=== PATIENT | female | born 1975 | race Caucasian/White ===

== ENCOUNTER → 2022-06-25 | Outpatient (CLI) | payer MEDICARE, MEDICAID, SELFPAY ==
--- NOTE | 2022-06-25 10:51 | AVDS_ITS ---
Reason For Study: AV-Fistula stenosis LEFT Inflow artery, 281/155.5 cm/sec. Inflow artery, 1538 ml/min. Proximal anastomosis, 336.5/180.2 cm/sec. Proximal anastomosis, 1791 ml/min. Origin of graft, 613.8/396.6 cm/sec. Origin of graft, 2586 ml/min. Proximal graft, 457.8/254.6 cm/sec. Proximal graft, 6650 ml/min. Mid graft, 90.7/35.9 cm/sec. Mid graft, 1444 ml/min. Distal graft, 202.6/102.3 cm/sec. Distal graft, 2739 ml/min. Outflow vein, 107.1/54.1 cm/sec. Outflow vein, 1465 ml/min. Radial artery, 51.2 cm/sec. Ulnar artery,36.4 cm/sec. VL/AV Fistula/Dialysis Graft Scan Interpretation Summary Patent left upper extremity brachio-cephalic fistula with no stenosis and adequ ate diameter/flow volumes. Vein progressively deeper beginning mid arm. Ordering Physician: Gregory Cooper Referring Physician: Maddy Anaya Performed By: Nita Goodwin RVT
== END | disposition home or self-care (01) ==
LOC: CVS 10:49
PROVIDERS: PCP Family Medicine; Referring Provider Surgery Trauma Surgery; Visit Provider Surgery Trauma Surgery
DX: T82.858A Stenosis of other vascular prosthetic devices, implants and grafts, initial encounter (principal)
CPT/HCPCS: 93990

== ENCOUNTER 2022-07-07 05:33 | Day surgery (SDC) | payer MEDICARE, MEDICAID, SELFPAY ==
[2022-07-06 11:19] LABS: Hematocrit 33.8 % (37-47); Hemoglobin 10.8 g/dL (12.0-15.0); Mean Corpuscular Hgb 29.4 pg (27.0-32.0); Mean Corpuscular Volume 92.1 fL (81-99); Mean Platelet Vol. 9.8 fl (6.2-12.0); Platelet Count 218 K/mm3 (150-450); RBC Distribution Width CV 17.7 % (11.6-14.6); RBC Distribution Width SD 59.1 fl (35.1-43.9); Red Blood Count 3.67 M/mm3 (4.2-5.4); White Blood Count 5.5 K/mm3 (4.4-11.0)
[2022-07-06 11:50] LABS: Hemoglobin A1c 8.3 % (3.8-5.6)
[2022-07-06 12:44] LABS: ALB/GLOB Ratio 0.8 RATIO (0.9-2.4); AST(SGOT) 14 U/L (15-37); Alanine Aminotransfer ALT/SGPT 28 U/L (13-56); Albumin, Serum 2.9 g/dL (3.2-5.0); Alkaline Phosphatase 92 U/L (45-117); Anion Gap 10 (5-15); BUN 77 mg/dL (7-18); BUN/Creat Ratio 13.3 RATIO (10-20); Calcium,Total 8.6 mg/dL (8.5-10.1); Chloride 100 mmol/L (98-107); Cholesterol 155 mg/dL (200); Creatinine, Serum 5.77 mg/dL (0.55-1.02); EST Glomerular Filtration Rate 8 mL/min (>60); Est Glom Filt Rate - Afr Amer 10 mL/min (>60); Estimated Creatinine Clearance 10.52 ml/min; Globulin 3.6 g/dL (2.2-4.2); Glucose 497 mg/dL (74-106); High Density Lipoprotein 76 mg/dL; Potassium 6.2 mmol/L (3.5-5.1); Protein, Total 6.5 g/dL (6.4-8.2); Sodium Level 134 mmol/L (136-145); Thyroid Stim Hormone (TSH) 2.77 uIU/mL (0.358-3.74); Triglycerides 164 mg/dL; Very Low Density Lipoprotein 33 mg/dL (5-40)
[2022-07-07] VITALS (11 sets, daily range): BP systolic 92–134; BP diastolic 50–96; PULSE 62–77; RESP 14–18; TEMP 36.1–37; O2SAT 94–100; BMI 47.2
--- NOTE | 2022-07-07 06:56 | SUR.PREOP ---
Pt refused urine preg. Anesthesia aware.
[2022-07-07 07:05] LABS: Bedside Glucose 98 mg/dL (74-106)
[2022-07-07 07:19] LABS: Potassium 4.7 mmol/L (3.5-5.1)
--- NOTE | 2022-07-07 07:44 | HP.PCM_ITS ---
History and Physical Visit Reasons:?fistula Chief Complaint: fistula left arm? (high pressure) Allergies bacitracin Allergy (Intermediate, Verified 06/23/22 11:13) blistershydrogen peroxide Allergy (Intermediate, Verified 06/23/22 11:13) blistersisopropyl alcohol Allergy (Intermediate, Verified 06/23/22 11:13) blistersSulfa (Sulfonamide Antibiotics) Allergy (Intermediate, Verified 06/23/22 11:13) Rashmetphormine Allergy (Intermediate, Uncoded 06/23/22 11:13) Rashlatex, tape Allergy (Mild, Uncoded 06/23/22 11:13) Rash Medications omega-3 fatty acids 1,000 mg capsule 1,000 mg PO DAILY 06/18/22 [History Confirmed 06/23/22] B-complex with vitamin C 1 tab PO DAILY 06/23/22 [History Confirmed 06/23/22] aspirin 81 mg tablet,delayed release 81 mg PO DAILY 06/23/22 [History Confirmed 06/23/22] atorvastatin 20 mg tablet 20 mg PO QHS 06/23/22 [History Confirmed 06/23/22] bumetanide 1 mg tablet 1 mg PO DAILY 06/23/22 [History Confirmed 06/23/22] cetirizine 10 mg tablet 10 mg PO DAILY PRN 06/23/22 [History Confirmed 06/23/22] cholecalciferol (vitamin D3) 125 mcg (5,000 unit) disintegrating tablet mcg PO .weekly 06/23/22 [History Confirmed 06/23/22] dicyclomine 10 mg capsule 10 mg PO BID 06/23/22 [History Confirmed 06/23/22] ferrous sulfate 325 mg (65 mg iron) tablet (FeroSul) 325 mg PO DAILY 06/23/22 [History Confirmed 06/23/22] insulin aspart U-100 100 unit/mL (3 mL) subcutaneous pen (Novolog Flexpen U-100 Insulin aspart) 1 sliding scale dose subcut USEASDIRECTD 06/23/22 [History Confi rmed 06/23/22] insulin detemir U-100 100 unit/mL (3 mL) subcutaneous pen (Levemir FlexTouch U- 100 Insulin) 17 unit subcut QHS 06/23/22 [History Confirmed 06/23/22] lamotrigine 50 mg disintegrating tablet 50 mg PO DAILY 06/23/22 [History Confirmed 06/23/22] losartan 50 mg tablet 50 mg PO DAILY 06/23/22 [History Confirmed 06/23/22] metoclopramide HCl 10 mg tablet 10 mg PO TID PRN 06/23/22 [History Confirmed 06/23/22] pantoprazole 40 mg tablet,delayed release 40 mg PO DAILY 06/23/22 [History Confirmed 06/23/22] rizatriptan 10 mg tablet See Rx Instructions PO .COMPLEX 06/23/22 [History Confirmed 06/23/22] sucralfate 100 mg/mL oral suspension 10 ml PO QACHS 06/23/22 [History Confirmed 06/23/22] tamsulosin 0.4 mg capsule 0.4 mg PO DAILY 06/23/22 [History Confirmed 06/23/22] PFSH Medical History? delivery delivered FH: cholecystectomy Left foot amputee (~2019) Surgical History? H/O left knee surgery H/O right knee surgery Hx of tonsillectomy Family History? Other Arthritis Asthma CVA (cerebral vascular accident) Diabetes Heart disease High cholesterol Hypertension Kidney disease Osteoporosis Seizures Social History? Smoking Status:? Former smoker alcohol intake:? never HPI HPI HPI: XOCHITL CHERRY, is a 47 F who presents to the office today for evaluation on non-functioning left arm fistula. Originally created in 12/2021 in [place]. Later had branches ligated. Only recently attempted access and are successful with arterial outflow but venous return is difficult to access and has high pressures. This is her first AV access. Currently uses right IJ catheter, MWF.? ROS General General: Yes weight change and fatigue; No appetite, colon cancer, breast cancer or weakness HEENT HEENT: Yes difficulty swallowing and swollen glands; No eye injury, eye surgery or hoarseness Endo Endocrine: Yes diabetes mellitus; No thyroid disease, thyroid cancer, Hair loss, heat intolerance or cold intolerance Skin Skin: No rash or changing moles Musc Musculoskeletal: Yes back problems and arthritis; No rheumatoid arthritis, gout or joint pain Cardio Cardiovascular: Yes high blood pressure; No murmur, pacemaker, heart disease, atrial fibrillation, heart attack, heart stent, palpitations, shortness of breat with exertion or chest pain Additional Details: CHF Psych Psychiatric: Yes depression and anxiety; No hearing voices Resp Respiratory: Yes shortness of breath, Yes sleep apnea, No cough, No COPD, Yes asthma, No emphysema and No wheezing Gastro Gastrointestinal: Yes abdominal pain, Yes nausea or vomiting, Yes diarrhea, Yes constipation, No blood in stool, Yes acid reflux, Yes hemorrhoids, Yes ulcers, No gallbladder problem and Yes black,tarry stools Pato Hematologic: No blood thinners, No blood disorders, No bleeding, No anemia and No blood clots Neuro Neurologic: No system reviewed and no additional complaints, except as documented, No as per HPI, No abnormal gait, No abnormal hearing, No abnormal movements, No abnormal speech, No behavioral changes, No burning sensations, No confusion, No convulsions, No disequilibrium, No dizziness, No localized weakness, No frequent falls, No headache(s), No lack of coordination, No loss of vision, No memory loss, No numbness, No other visual disturbances, No radicular pain, No restless legs, No sensory deficit, No syncope, No tingling, No tremor(s), No weakness and No other Exam Const General: cooperative, healthy appearing, comfortable, no acute distress and well developed Nutritional Appearance: well nourished Orientation: alert, awake and oriented x3 [facility] Head: normocephalic and atraumatic Ears: hearing grossly normal bilaterally Nose: external nose normal Eyes General: appearance normal, both eyes and all related structures EOM: EOM intact bilaterally Neck Neck: normal visual inspection, full ROM, no lymphadenopathy and trachea midline Thyroid: thyroid normal Lymphatic: no lymphadenopathy noted Resp Effort & Inspection: normal respiratory effort, able to speak in complete sentences, symmetric chest movement, no audible wheezes, not labored, no stridor and no use of accessory muscles Auscultation: clear to auscultation bilaterally Cardio Rate: regular rate Rhythm: regular rhythm Heart Sounds: no murmurs Bruits: no carotid bruits Pulses: brachial pulses present and radial pulses present Other: Left Arm brach-ceph AVF, thrill at antecubital crease diminishes mid upper arm Skin General: no rashes or lesions noted and no erythema Wounds: no wounds Neuro Cranial Nerves: CN's II-XI intact bilaterally and EOM intact bilaterally Speech: speech normal Gait: normal gait Motor: strength 5/5 throughout Sensory Exam: no sensory deficits noted Extremities Lower Extremity Edema: +2: Bilateral Psych Appearance: grossly normal and well kempt Mental Status: mental status grossly normal Mood: congruent mood Speech and Movement: speech and movement normal Thought Content: normal Judgment: judgment good Coding Level of Care Code Off vis,new,level 3 Diagnoses Arteriovenous fistula stenosis? T82.858A Assessment and Plan Assessment and Plan (1) Arteriovenous fistula stenosis: ?Status:?Acute ?Plan: -duplex revealed adequate size\flow volume, no focal stenosis, deep at mid/proximal arm -plan to elevate, will place graft if needed but expect [place] vein to be adequate
[2022-07-07] MEDS: Heparin Injection (Vial) 5,000 UNIT/ML VIAL 5000 UNIT (08:07)
--- NOTE | 2022-07-07 09:15 | DCINST_ITS ---
Discharge Instructions Diet Discharge Diet: Renal Diet Activity Return to work on:: 07/09/22 Weight Bearing Status: Weight bearing as tolerated Lifting Restrictions: No lifting > 20 lbs for 3 weeks with left arm Dressing / Incision Call your doctor if your incision/area has: Sudden Increased Bleeding, Increased Pain/ Swelling, Increased Redness and Foul Smelling Discharge Call your doctor if you observe: Fever of 101 or Higher Remove Dressing in: 2 days Additional Dressing/Incision Instructions:: Do not submerge incision for 3 weeks Follow Up Care Test Results: Test results from this visit will be discussed in further detail at your follow- up appointment, if applicable. Discharge Plan Admission Attending Provider: Gregory Cooper Primary Care Provider: Maddy Anaya Consulting Providers: Caroline Sousa Discharge Orders/Prescriptions Prescriptions: New oxycodone-acetaminophen [Percocet] 5-325 mg tablet 1 tab PO Q8H PRN (Reason: pain) 5 Days Qty: 14 0RF Continued aspirin 81 mg tablet,delayed release (DR/EC) 81 mg PO DAILY cetirizine 10 mg tablet 10 mg PO DAILY dicyclomine 10 mg capsule 10 mg PO BID pantoprazole 40 mg tablet,delayed release (DR/EC) 40 mg PO DAILY lamotrigine 50 mg tablet,disintegrating 50 mg PO DAILY atorvastatin 20 mg tablet 20 mg PO QHS sucralfate 100 mg/mL suspension 10 ml PO QACHS metoclopramide HCl 10 mg tablet 10 mg PO TID bumetanide 1 mg tablet 1 mg PO DAILY losartan 50 mg tablet 50 mg PO DAILY rizatriptan 10 mg tablet See Rx Instructions PO .COMPLEX Rx Instructions: take 1 tab at onset of headache; if no relief may repeat 1 tab after at least 2 hrs; max = 3 tabs/24 hr PO tamsulosin 0.4 mg capsule 0.4 mg PO DAILY insulin aspart U-100 [Novolog Flexpen U-100 Insulin] 100 unit/mL (3 mL) insulin pen 1 sliding scale dose subcut USEASDIRECTD Levemir FlexTouch U-100 Insuln 100 unit/mL (3 mL) insulin pen 17 unit subcut QHS Other Ambulatory Orders: ,Urine (Routine) Timeframe: [id number] Facility: [facility] - Location: Laboratory Ordered By: Dr. Gregory Bajwa Referrals / Follow Up: Maddy Anaya MD [Primary Care Provider] - Disposition Disposition (needs filled in before D/C Order can be placed): Home, Self Care
[2022-07-07] MEDS: Lidocaine 1% (30 ml sdv) 30 ML Vial (09:20)
[2022-07-07 10:36] LABS: Bedside Glucose 105 mg/dL (74-106)
[2022-07-07] MEDS: oxyCODONE 5 MG Tablet 2.5 MG PO (11:50)
--- NOTE | 2022-07-08 12:58 | PCM.OPRPT ---
Problems Associated Problem List Diagnoses (1) ESRD needing dialysis: Report of Operation Date of Procedure: 07/07/22 Pre-Operative Diagnosis: malfunctioning left brach-ceph fistula Post-Operative Diagnosis: same; satisfactory caliber, too deep Surgery/Procedure Performed:: transposition of cephalic vein fistula Surgeon: Gregory Cooper Type of Anesthesia: General Estimated Blood Loss (mL): 20 Description of Procedure: HPI: Patient is a 47-year-old female with previous left brachiocephalic AV fistula created in outside facility with difficult cannulation. The arterial access successful with difficulty with venous return due to potentially some high pressures. Previously in addition to the creation she also had multiple branches ligated at the outside facility. Fistula duplex revealed satisfactory size fistula with satisfactory flow volumes and expected low resistance flow not suggestive of any outflow obstruction or stenosis but was noted to be deeper than optimal from the mid arm cephalad. She is taken now for fistula transposition. Description of procedure: Upon obtaining informed consent and verification correct patient procedure site patient was taken the operating room where she was placed under general anesthesia. She was then positioned prepped and draped in usual sterile fashion a timeout was performed. Ultrasound used to anaid the cephalic vein fistula along its course as well as anaid where the trajectory took the fistula deeper marking the extent of mobilization necessary. Next longitude incision was made medial to the fistula in both electrocautery was dissect down through subcutaneous tissue. Self-retaining tractor was put in position and further dissection carried down to level of the fistula at which point sharp dissection was used dissect free along the length of the cephalic vein. Side branches were ligated with silk ties and divided and once a satisfactory length of fistula been mobilized was then transposed in the subcutaneous plane. The deeper fat plane and fascial plane was then closed with interrupted 2-0 Vicryl followed by 3-0 Vicryl deep to the fistula and then 4 Monocryl and Dermabond for the skin. The inclusion the case patient had a palpable thrill in the fistula and satisfactory Doppler signal. This point patient weakened from anesthesia taken the covering with dissipated discharge home.
== END 2022-07-07 16:44 | disposition home or self-care (01) ==
LOC: SDC 05:37 → AC 05:39
PROVIDERS: Anesthesiology; PCP Family Medicine; Referring Provider Surgery Trauma Surgery; Visit Provider Surgery Trauma Surgery
PROC: (CPT 36818; principal; 2022-07-07 07:15)
DX: T85.858A Stenosis due to other internal prosthetic devices, implants and grafts, initial encounter (principal); N18.6 End stage renal disease; E11.9 Type 2 diabetes mellitus without complications; Z87.891 Personal history of nicotine dependence; J45.909 Unspecified asthma, uncomplicated; E78.00 Pure hypercholesterolemia, unspecified; K21.9 Gastro-esophageal reflux disease without esophagitis
CPT/HCPCS: 36818; 01844; 36415; 80053; 80061; 82962; 83036; 84132; 84443; 85027; 86850; 86900; 86901; 87086; 87088; 87186; J7040; J2405

== ENCOUNTER 2022-08-18 17:06 | Inpatient (IN) | payer MEDICARE, MEDICAID, SELFPAY ==
[2022-08-18] VITALS (11 sets, daily range): BP systolic 161–230; BP diastolic 66–90; PULSE 69–79; RESP 14–18; TEMP 36.7–37; O2SAT 98–100; BMI 47.3; BMI 46.1
--- NOTE | 2022-08-18 17:34 | CT_ITS ---
STUDY: CT BRAIN WITHOUT CONTRAST REASON FOR EXAM: Female, 47 years old. Headache RADIATION DOSAGE (If Supplied By Facility): CTDIvol = ( 44.99 ) mGy, DLP = ( 812.98 ) mGycm TECHNIQUE: Transaxial CT imaging of the brain was performed without administration of intravenous contrast material. Individualized dose optimization techniques were used for this CT. COMPARISON: No relevant priors. FINDINGS: Normal soft tissue structures. Normal calvarium. Normal size ventricles and extra-axial spaces for the patient''s age. Normal white matter tracts of the cerebral hemispheres. Normal basal ganglia and thalami. Normal brainstem. Normal cerebellum. There is no intracranial hemorrhage. There are no findings of an acute ischemic infarction. Normal visualized paranasal sinuses. CT/Brain/Head without Contrast IMPRESSION: Normal unenhanced CT scan of the brain. Electronically Signed: Param Rollins MD at 18:23 EST ,
--- NOTE | 2022-08-18 17:36 | EDS_ITS ---
HPI History of Present Illness Chief Complaint: Headache Narrative Narrative: 47-year-old female past medical history of end-stage renal disease, chronic headaches, presents with headache that she has had for the last few days. She has taken multiple [id number] medications without relief of her symptoms. It is mainly on the right side. She states she is seeing flashing rainbows even when she closes her eyes. She denies paresthesias that are new for her stating that she has neuropathy and has chronic paresthesias, numbness and tingling. She describes a sharp pain on the right side of her head. She was recently diagnosed with hypertension and is taking medication. She denies any nausea or vomiting. She is a dialysis patient and does not make urine very often. She was able to complete her dialysis yesterday as she receives it Wednesday, Wednesday, and Wednesday every week. Her main concern is that she has this headache that is unrelenting over the last few days. [facility] Medical History Anxiety Asthma Fleming esophagus Blackout delivery delivered Chronic kidney disease Depression Dietary restriction FH: cholecystectomy Former smoker Gastric reflux High cholesterol History of CHF (congestive heart failure) History of Clostridium difficile infection History of edema History of ulceration Hypertension Insulin dependent diabetes mellitus Left foot amputee (~2019) Low iron Migraine headache On home oxygen therapy Seasonal allergies Sleep apnea Thyroid disease Uses wheelchair Vision impairment Walker as ambulation aid Wears glasses Home Medications aspirin 81 mg tablet,delayed release 81 mg PO DAILY 06/23/22 [History Last Taken Unknown] atorvastatin 20 mg tablet 20 mg PO QHS 06/23/22 [History Last Taken Unknown] bumetanide 1 mg tablet 1 mg PO DAILY 06/23/22 [History Last Taken Unknown] cetirizine 10 mg tablet 10 mg PO DAILY 06/23/22 [History Last Taken Unknown] dicyclomine 10 mg capsule 10 mg PO BID 06/23/22 [History Last Taken Unknown] insulin aspart U-100 100 unit/mL (3 mL) subcutaneous pen (Novolog Flexpen U-100 Insulin aspart) 6 - 10 unit subcut UD DIABETES 06/23/22 [History Last Taken 08/16/22] insulin detemir U-100 100 unit/mL (3 mL) subcutaneous pen (Levemir FlexTouch U- 100 Insulin) 17 unit subcut QHS DIABETES 06/23/22 [History Last Taken 08/17/22] lamotrigine 50 mg disintegrating tablet 50 mg PO DAILY 06/23/22 [History Last Taken Unknown] losartan 50 mg tablet 50 mg PO DAILY 06/23/22 [History Last Taken 07/07/22 04:00] metoclopramide HCl 10 mg tablet 10 mg PO TID 06/23/22 [History Last Taken Unknown] pantoprazole 40 mg tablet,delayed release 40 mg PO DAILY 06/23/22 [History Last Taken 07/07/22 04:00] rizatriptan 10 mg tablet See Rx Instructions PO .COMPLEX 06/23/22 [History Last Taken Unknown] sucralfate 100 mg/mL oral suspension 10 ml PO QACHS 06/23/22 [History Last Taken Unknown] tamsulosin 0.4 mg capsule 0.4 mg PO DAILY 06/23/22 [History Last Taken Unknown] oxycodone-acetaminophen 5 mg-325 mg tablet (Percocet) 1 tab PO Q8H PRN pain 5 days #14 tabs 07/07/22 [Rx Last Taken Unknown] ciprofloxacin HCl 500 mg tablet (Cipro) 500 mg PO BID 07/21/22 [History Last Taken Unknown] Allergy/AdvReac Type Severity Reaction Status Date / Time lidocaine Allergy Severe Rash Verified 08/18/22 17:09 bacitracin Allergy Intermediate blisters Verified 08/18/22 17:09 hydrogen peroxide Allergy Intermediate blisters Verified 08/18/22 17:09 isopropyl alcohol Allergy Intermediate blisters Verified 08/18/22 17:09 Sulfa (Sulfonamide Allergy Intermediate Rash Verified 08/18/22 17:09 Antibiotics) Bleach (Sodium Hypochlorite) Allergy Hives Verified 08/18/22 17:09 Latex, Natural Rubber Allergy Rash Verified 08/18/22 17:09 metformin AdvReac Vomiting Verified 08/18/22 17:09 neomycin AdvReac NEEDS Verified 08/18/22 17:09 [From Neosporin FOLLOW-UP ([id number])] polymyxin B AdvReac NEEDS Verified 08/18/22 17:09 [From Neosporin FOLLOW-UP ([id number])] Family History Other Arthritis Asthma CVA (cerebral vascular accident) Diabetes Heart disease High cholesterol Hypertension Kidney disease Osteoporosis Seizures Surgical History H/O left knee surgery H/O right knee surgery History of arteriovenostomy for renal dialysis History of bladder surgery History of History of cholecystectomy History of foot surgery History of liver biopsy History of lumpectomy of right breast History of shoulder surgery History of thoracentesis Hx of tonsillectomy Social History Smoking Status: Former smoker alcohol intake: never ROS ROS ED ROS Narrative Constitutional: No fever, no chills. HEENT: No sore throat. No neck pain. No loss of vision. No rhinorrhea. Cardiovascular: No chest pain. No palpitations. No pedal edema. Respiratory: No cough, no shortness of breath. Abdominal: No abdominal pain. No nausea. No vomiting. Genitourinary: No dysuria. No hematuria. Musculoskeletal: No myalgias. No arthralgias. Neurologic: Positive right-sided headaches. Seeing flashing rainbow colored lights. No dizziness. No lightheadedness. Skin: No rash. No change in color. Psychiatric: No depression. No anxiety. EXAM Physical Exam Narrative Exam Narrative: Afebrile. Vital signs noted. Elevated blood pressure. HEENT: Normocephalic. Atraumatic. PERRL, EOMI. Neck soft and supple. No point tenderness or step off. Cardiovascular: Regular rate and rhythm. No murmurs, rubs, or gallops appreciated. Respiratory: No tachypnea. Lungs clear to auscultation bilaterally. Gastrointestinal: Abdomen soft, nontender, with normoactive bowel sounds. No rebound or guarding. Neurological: Awake. Alert. Nonfocal, nonlateralizing. Skin: No rash. Normal color. No pallor. Musculoskeletal: No pedal edema. Full range of motion extremities. Braces bilateral lower extremities. Const Vital Signs: 08/18/22 17:09 08/18/22 19:28 08/18/22 20:45 Temperature 98.6 F Temperature Source Oral Pulse Rate 69 76 Respiratory Rate 14 Blood Pressure 182/87 H 220/90 H 221/90 H Blood Pressure Mean 118 133 133 Pulse Ox 100 Oxygen Delivery Method Room Air 08/18/22 21:54 08/18/22 22:07 Temperature 98.2 F Temperature Source Temporal Pulse Rate 79 Respiratory Rate 15 Blood Pressure 230/76 H Blood Pressure Mean 127 Pulse Ox 99 98 Oxygen Delivery Method Room Air Room Air MDM MDM MDM Narrative Medical decision making narrative: It was reported that she had elevated blood sugar but she denies any abdominal pain, nausea, or vomiting. I will obtain CBC and CMP along with acetone. She does not make urine that often. For her headache will obtain CT imaging as she will be administered hydralazine for her blood pressure along with Compazine and Benadryl for her migraine type headache that is right-sided. CBC shows normal white count of 6.1, hemoglobin 12.3, hematocrit 36.0, platelet count of 224. Sodium slightly low at 133 with normal potassium and normal chloride. BUN elevated 27, and creatinine elevated at 3.41 consistent with her end-stage renal disease and need for dialysis. Although her glucose is elevated at 424, she has a normal anion gap of 9 and negative acetone. Brain CT shows no evidence of hemorrhage or mass. She was given 10 mg of hydralazine initially with no change in her blood pressure. She was given an additional 20 mg with repeated systolic blood pressure above 200. Given her intractable headache, even after Decadron 10 mg intravenously, I discussed patient with Dr. Ortega. He would like the patient to be given labetalol 10 mg intravenously and a dose of her triptan medication that she usually takes at home. She was given the labetalol and sumatriptan hand 6 mg subcutaneously with no change in her headache. Her blood pressure still remains elevated above 200 systolic. She will be admitted to the PCU for better blood pressure control and her intractable headache. Disposition is admit. Patient is in stable condition currently. Lab Data Attestation: I reviewed the patient's lab results. Labs: Laboratory Results - last 24 hr 08/18/22 08/18/22 08/18/22 17:44 17:44 17:44 WBC 6.1 RBC 3.95 L Hgb 12.3 Hct 36.0 L MCV 91.1 MCH 31.1 MCHC 34.2 RDW Std Deviation 51.8 H RDW Coeff of Juan 15.4 H Plt Count 224 MPV 9.4 Immature Gran % (Auto) 0.700 Neut % (Auto) 60.6 Lymph % (Auto) 26.6 Rutherford % (Auto) 6.8 Eos % (Auto) 4.3 Baso % (Auto) 1.0 Absolute Neuts (auto) 3.7 Absolute Lymphs (auto) 1.61 Nucleated RBC % 0 Sodium 133 L Potassium 4.8 Chloride 102 Carbon Dioxide 22.0 Anion Gap 9 BUN 27 H Creatinine 3.41 H Estim Creat Clear Calc 20.05 Est GFR (MDRD) Af Amer 19 L Est GFR (MDRD) Non-Af 15 L BUN/Creatinine Ratio 7.9 L Glucose 424 H Calcium 8.8 Total Bilirubin 0.40 AST 22 ALT 27 Alkaline Phosphatase 94 Total Protein 6.4 Albumin 2.8 L Globulin 3.6 Albumin/Globulin Ratio 0.8 L Acetone Level NEGATIVE Radiography Diagnostic Testing: Clinical Impression(s) from Imaging Studies Brain CT 08/18/22 17:34 IMPRESSION: Normal unenhanced CT scan of the brain. Electronically Signed: Param Rollins MD at 18:23 EST , Discharge Plan Dx/Rx/DC Orders Clinical Impression: Severe uncontrolled hypertension, ESRD needing dialysis, Headache, Hyponatremia Disposition Disposition: Acute Care [facility]
[2022-08-18] MEDS: DiphenhydrAMINE 50 MG/ML Syringe 25 MG IV (17:48)
[2022-08-18] MEDS: proCHLORPERazine 10 MG/2 ML Vial IV (17:48)
[2022-08-18 17:52] LABS: Absolute Lymphocyte Count 1.61 X10^3/uL (0.83-4.51); Absolute Neutrophil Count 3.7 X10^3/uL (2.0-7.7); Basophil# 0.06 X10^3/uL; Eosinophil# 0.26 X10^3/uL; Eosinophils% 4.3 % (0-5); Hemoglobin 12.3 g/dL (12.0-15.0); Lymphocyte # 1.61 X10^3/ul (0.83-4.51); Lymphocyte % 26.6 % (19-41); Mean Corp Hgb Conc 34.2 g/dL (32-36); Mean Corpuscular Hgb 31.1 pg (27.0-32.0); Mean Corpuscular Volume 91.1 fL (81-99); Mean Platelet Vol. 9.4 fl (6.2-12.0); Monocyte# 0.41 X10^3/uL; Monocyte% 6.8 % (0-10); NRBC Flagged by Analyzer 0 % (0-5); Neutrophil # 3.67 X10^3/uL (2.7-7.7); Neutrophil % 60.6 % (47-70); Platelet Count 224 K/mm3 (150-450); RBC Distribution Width CV 15.4 % (11.6-14.6); RBC Distribution Width SD 51.8 fl (35.1-43.9); Red Blood Count 3.95 M/mm3 (4.2-5.4); White Blood Count 6.1 K/mm3 (4.4-11.0)
[2022-08-18] MEDS: hydrALAZINE 20 MG/ML Vial 10 MG IV (17:52)
[2022-08-18 18:08] LABS: ALB/GLOB Ratio 0.8 RATIO (0.9-2.4); AST(SGOT) 22 U/L (15-37); Alanine Aminotransfer ALT/SGPT 27 U/L (13-56); Albumin, Serum 2.8 g/dL (3.2-5.0); Alkaline Phosphatase 94 U/L (45-117); Anion Gap 9 (5-15); BUN 27 mg/dL (7-18); BUN/Creat Ratio 7.9 RATIO (10-20); Calcium,Total 8.8 mg/dL (8.5-10.1); Chloride 102 mmol/L (98-107); Creatinine, Serum 3.41 mg/dL (0.55-1.02); EST Glomerular Filtration Rate 15 mL/min (>60); Est Glom Filt Rate - Afr Amer 19 mL/min (>60); Estimated Creatinine Clearance 20.05 ml/min; Globulin 3.6 g/dL (2.2-4.2); Glucose 424 mg/dL (74-106); Potassium 4.8 mmol/L (3.5-5.1); Protein, Total 6.4 g/dL (6.4-8.2); Sodium Level 133 mmol/L (136-145)
[2022-08-18] MEDS: dexAMETHasone 10 MG/ML Vial IV (19:27)
[2022-08-18] MEDS: hydrALAZINE 20 MG/ML Vial IV (20:06)
[2022-08-18] MEDS: Labetalol (Prefilled) 20 MG/4 ML 10 MG IV (20:49)
[2022-08-18] MEDS: SUMAtriptan 6 MG/0.5 ML Vial SC (20:49)
--- NOTE | 2022-08-18 22:09 | HP.PCM.HOS_ITS ---
HPI - General General Date of Admission: 08/18/22 HPI Narrative XOCHITL CHERRY, is a 47 F who presents to the hospital secondary to headache. She says that her headache started on but is slowly gotten worse. She says that it got significantly worse Wednesday after dialysis and she presented today because she just cannot take it anymore it. She does have paresthesias which are chronic in her legs but she also has noticed some numbness in her hands but denies any weakness. This numbness is bilateral. She denies any blurry vision but she does see periodic flashes of light. In the ER she was noticed to have significantly elevated blood pressures at 1 point at 230 systol ic, she says that she is normally around 130 at home. She was started on a new blood pressure medication but she does not know what it is. She was given a couple doses of hydralazine and a dose of labetalol, it does appear that the labetalol has helped as her blood pressure while I was in the room did dip to 200. She denies any chest pain or shortness of breath. She is wearing oxygen which she says is normal for her at night when she goes to sleep. [facility] Medical History Anxiety Asthma Fleming esophagus Blackout delivery delivered Chronic kidney disease Depression Dietary restriction FH: cholecystectomy Former smoker Gastric reflux High cholesterol History of CHF (congestive heart failure) History of Clostridium difficile infection History of edema History of ulceration Hypertension Insulin dependent diabetes mellitus Left foot amputee (~2019) Low iron Migraine headache On home oxygen therapy Seasonal allergies Sleep apnea Thyroid disease Uses wheelchair Vision impairment Walker as ambulation aid Wears glasses Home Medications aspirin 81 mg tablet,delayed release 81 mg PO DAILY 06/23/22 [History Last Taken Unknown] atorvastatin 20 mg tablet 20 mg PO QHS 06/23/22 [History Last Taken Unknown] bumetanide 1 mg tablet 1 mg PO DAILY 06/23/22 [History Last Taken Unknown] cetirizine 10 mg tablet 10 mg PO DAILY 06/23/22 [History Last Taken Unknown] dicyclomine 10 mg capsule 10 mg PO BID 06/23/22 [History Last Taken Unknown] insulin aspart U-100 100 unit/mL (3 mL) subcutaneous pen (Novolog Flexpen U-100 Insulin aspart) 6 - 10 unit subcut UD DIABETES 06/23/22 [History Last Taken 08/16/22] insulin detemir U-100 100 unit/mL (3 mL) subcutaneous pen (Levemir FlexTouch U- 100 Insulin) 17 unit subcut QHS DIABETES 06/23/22 [History Last Taken 08/17/22] lamotrigine 50 mg disintegrating tablet 50 mg PO DAILY 06/23/22 [History Last Taken Unknown] losartan 50 mg tablet 50 mg PO DAILY 06/23/22 [History Last Taken 07/07/22 04 :00] metoclopramide HCl 10 mg tablet 10 mg PO TID 06/23/22 [History Last Taken Unknown] pantoprazole 40 mg tablet,delayed release 40 mg PO DAILY 06/23/22 [History Last Taken 07/07/22 04:00] rizatriptan 10 mg tablet See Rx Instructions PO .COMPLEX 06/23/22 [History Last Taken Unknown] sucralfate 100 mg/mL oral suspension 10 ml PO QACHS 06/23/22 [History Last Taken Unknown] tamsulosin 0.4 mg capsule 0.4 mg PO DAILY 06/23/22 [History Last Taken Unknown] oxycodone-acetaminophen 5 mg-325 mg tablet (Percocet) 1 tab PO Q8H PRN pain 5 days #14 tabs 07/07/22 [Rx Last Taken Unknown] ciprofloxacin HCl 500 mg tablet (Cipro) 500 mg PO BID 07/21/22 [History Last Taken Unknown] Allergy/AdvReac Type Severity Reaction Status Date / Time lidocaine Allergy Severe Rash Verified 08/18/22 17:09 bacitracin Allergy Intermediate blisters Verified 08/18/22 17:09 hydrogen peroxide Allergy Intermediate blisters Verified 08/18/22 17:09 isopropyl alcohol Allergy Intermediate blisters Verified 08/18/22 17:09 Sulfa (Sulfonamide Allergy Intermediate Rash Verified 08/18/22 17:09 Antibiotics) Bleach (Sodium Hypochlorite) Allergy Hives Verified 08/18/22 17:09 Latex, Natural Rubber Allergy Rash Verified 08/18/22 17:09 metformin AdvReac Vomiting Verified 08/18/22 17:09 neomycin AdvReac NEEDS Verified 08/18/22 17:09 [From Neosporin FOLLOW-UP ([id number])] polymyxin B AdvReac NEEDS Verified 08/18/22 17:09 [From Neosporin FOLLOW-UP ([id number])] Family History Other Arthritis Asthma CVA (cerebral vascular accident) Diabetes Heart disease High cholesterol Hypertension Kidney disease Osteoporosis Seizures Surgical History H/O left knee surgery H/O right knee surgery History of arteriovenostomy for renal dialysis History of bladder surgery History of History of cholecystectomy History of foot surgery History of liver biopsy History of lumpectomy of right breast History of shoulder surgery History of thoracentesis Hx of tonsillectomy Social History Smoking Status: Former smoker alcohol intake: never ROS Constitutional Constitutional: Denies chills, fatigue, fever(s) or malaise Eyes Eyes: Reports photophobia and seeing flashes; Denies blurry vision ENT HEENT: Denies headache(s) or nasal discharge Cardiovascular Cardiovascular: Denies chest pain, dyspnea on exertion or syncope Respiratory/Chest Respiratory/Chest: Denies cough, shortness of breath at rest or shortness of breath with exertion Gastrointestinal Gastrointestinal: Denies constipation, diarrhea, nausea or vomiting Genitourinary Genitourinary: Denies dysuria Neurologic Neurologic: Reports headache(s) and paresthesias RUE and LUE; Denies focal weakness, numbness or tremor(s) Psychiatric Psychiatric: Denies anxiety or depression Vital Signs Vital Signs Vital Signs: 08/18/22 17:09 08/18/22 19:28 08/18/22 20:45 Temperature 98.6 F Temperature Source Oral Pulse Rate 69 76 Respiratory Rate 14 Blood Pressure 182/87 H 220/90 H 221/90 H Blood Pressure Mean 118 133 133 Pulse Ox 100 Oxygen Delivery Method Room Air 08/18/22 21:54 08/18/22 22:07 Temperature 98.2 F Temperature Source Temporal Pulse Rate 79 Respiratory Rate 15 Blood Pressure 230/76 H Blood Pressure Mean 127 Pulse Ox 99 98 Oxygen Delivery Method Room Air Room Air Weight Weight: 302 lb 7.587 oz Body Mass Index (BMI) 47.3 Physical Exam Narrative General: Alert, Oriented x3, Cooperative, appears uncomfortable HEENT: Atraumatic, PERRLA, EOMI, Normocephalic Oral: Moist Mucosa Neck: Supple, No JVD Lungs: Clear to auscultation, Normal air movement, No rhonchi, No wheeze, No rales Cardiovascular: Regular rate, Regular Rhythm, Normal S1, Normal S2, No murmurs Abdomen: Soft, Non Tender, Non-Distended, No Hepato-splenomegaly Extremities: No edema, Capillary Refill Less than 3 Seconds Skin: No rashes, No breakdown Musculoskeletal: No Tenderness to Palpation of Joints or Extremities Neurological: Cranial nerves II-XII grossly intact, Motor Exam 5/5 strength throughout, Sensory exam intact to light touch and pain Psych/Mental Status: Flat affect, Appropriate Results Lab / Micro Data Result Diagrams: 08/18/22 17:44 08/18/22 17:44 Labs: Laboratory Results - last 24 hr 08/18/22 17:44: WBC 6.1, RBC 3.95 L, Hgb 12.3, Hct 36.0 L, MCV 91.1, MCH 31.1, MCHC 34.2, RDW Std Deviation 51.8 H, RDW Coeff of Juan 15.4 H, Plt Count 224, MPV 9.4, Immature Gran % (Auto) 0.700, Neut % (Auto) 60.6, Lymph % (Auto) 26.6, [place] % (Auto) 6.8, Eos % (Auto) 4.3, Baso % (Auto) 1.0, Absolute Neuts (auto) 3.7, Absolute Lymphs (auto) 1.61, Nucleated RBC % 0 08/18/22 17:44: Sodium 133 L, Potassium 4.8, Chloride 102, Carbon Dioxide 22.0, Anion Gap 9, BUN 27 H, Creatinine 3.41 H, Estim Creat Clear Calc 20.05, Est GFR (MDRD) Af Amer 19 L, Est GFR (MDRD) Non-Af 15 L, BUN/Creatinine Ratio 7.9 L, Glucose 424 H, Calcium 8.8, Total Bilirubin 0.40, AST 22, ALT 27, Alkaline Phosphatase 94, Total Protein 6.4, Albumin 2.8 L, Globulin 3.6, Albumin/Globulin Ratio 0.8 L 08/18/22 17:44: Acetone Level NEGATIVE Radiology Impression Brain CT 08/18/22 17:34 IMPRESSION: Normal unenhanced CT scan of the brain. Electronically Signed: Param Rollins MD at 18:23 EST , Assessment & Plan Assessment/Plan (1) Severe uncontrolled hypertension: (2) Headache: PLAN: Plan 1. Hypertensive urgency with headaches/history of migraines ? Blood pressure is significantly elevated and since her arrival to the ER she has continued to climb ? We will place her on twice daily Coreg 6.25 mg p.o. as well as daily Norvasc a t 10 mg p.o. ? We will place her on hydralazine 10 mg IV every 4 as needed for systolics greater than 180 ? Her renal function appears to be better and it does not appear that she is having any end-organ damage, if we cannot get her blood pressure under control with these medication adjustments will need to consider transferring to the ICU for nicardipine drip ? Can continue with her home Bumex as well as her home losartan ? Continue with Lamictal 2. End-stage renal disease likely from diabetes with neuropathy and gastroparesis ? We will consult nephrology for dialysis ? We will continue with long-acting insulin as well as her sliding scale insulin ? Accu-Cheks AC at bedtime ? We will make adjustments as necessary ? Continue with the Reglan 3. HLD ? Stable ? Continue with Lipitor 4. GERD ? Stable ? Continue with PPI DVT: Ambulation Charges/Coding Visit Charges Inpatient E&M: 80804 Init Hosp L3
[2022-08-18] MEDS: amLODIPine 10 MG Tablet PO (23:46)
[2022-08-18] MEDS: Carvedilol 6.25 MG Tablet PO (23:46)
[2022-08-18] MEDS: Sucralfate 1 GM Tablet PO (23:56)
[2022-08-18] MEDS: Insulin Glargine-YFGN 100 UNIT/ML Pen 17 UNIT SC (23:56)
[2022-08-19] VITALS (19 sets, daily range): BP systolic 93–160; BP diastolic 43–77; PULSE 59–82; RESP 14–18; TEMP 36.6–36.9; O2SAT 96–100
[2022-08-19] LABS: Bedside Glucose 406 mg/dL (74-106)
--- NOTE | 2022-08-19 00:13 | NURSING ---
Pt had the flu vaccine but does not know the date. Pt also has her wallet and at first wanted it locked up but now has changed hr mind. She wants her belonging to to be in bed with her
[2022-08-19 05:08] LABS: Absolute Neutrophil Count 5.9 X10^3/uL (2.0-7.7); Basophil# 0.03 X10^3/uL; Basophil% 0.5 % (0-1); Differential Indicated SCAN CRITERIA MET; Eosinophil# 0.01 X10^3/uL; Eosinophils% 0.2 % (0-5); Hematocrit 37.1 % (37-47); Hemoglobin 12.5 g/dL (12.0-15.0); Lymphocyte % 9.1 % (19-41); Mean Corp Hgb Conc 33.7 g/dL (32-36); Mean Corpuscular Hgb 30.7 pg (27.0-32.0); Mean Corpuscular Volume 91.2 fL (81-99); Monocyte# 0.07 X10^3/uL; Monocyte% 1.1 % (0-10); NRBC Flagged by Analyzer 0 % (0-5); Neutrophil # 5.86 X10^3/uL (2.7-7.7); Neutrophil % 88.5 % (47-70); POSITIVE DIFFERENTIAL YES; Platelet Count 255 K/mm3 (150-450); RBC Distribution Width CV 15.2 % (11.6-14.6); RBC Distribution Width SD 50.6 fl (35.1-43.9); Red Blood Count 4.07 M/mm3 (4.2-5.4); White Blood Count 6.6 K/mm3 (4.4-11.0)
[2022-08-19] MEDS: Rizatriptan Benzoate 10 MG Tablet PO ×2 (05:08→08:46)
--- NOTE | 2022-08-19 05:08 | NURSING ---
c/o coto. c/o seeing ring. bp 140s. Maxalt given
[2022-08-19 05:27] LABS: Anisocytosis 1+
[2022-08-19 05:43] LABS: Anion Gap 12 (5-15); BUN 33 mg/dL (7-18); Calcium,Total 8.8 mg/dL (8.5-10.1); Chloride 102 mmol/L (98-107); Creatinine, Serum 3.66 mg/dL (0.55-1.02); EST Glomerular Filtration Rate 14 mL/min (>60); Est Glom Filt Rate - Afr Amer 17 mL/min (>60); Estimated Creatinine Clearance 18.68 ml/min; Glucose 554 mg/dL (74-106); Potassium 5.4 mmol/L (3.5-5.1); Sodium Level 134 mmol/L (136-145)
[2022-08-19] MEDS: Sucralfate 1 GM Tablet PO ×4 (06:06→22:48)
[2022-08-19] MEDS: oxyCODONE 5 MG Tablet PO ×2 (06:21→14:34)
[2022-08-19 06:24] LABS: Mucous, Urine 0 SEEN /hpf (<or=2+)
[2022-08-19 06:25] LABS: Color, Urine Yellow (Yellow); Glucose, Dipstick 1000 mg/dl (Normal); Ketone-Dipstick 15 mg/dl (Negative); Leukocyte Esterase-Dipstick 500 /ul (Negative); Nitrite-Dipstick Negative (Negative); Occult Blood-Urine 50 /ul (Negative); Protein-Dipstick 500 mg/dl (Negative); Specific Gravity, Urine 1.015 (1.002-1.030); Urine Bilirubin Dipstick Negative (Negative); Urine Clarity Cloudy (Clear); Urine Urobilinogen Normal (Normal)
[2022-08-19 06:33] LABS: Bacteria 2+ /hpf (None Seen); Red Blood Cells-Urine 0-5 SEEN /hpf (0-5); White Blood Cells 5-10 SEEN /hpf (0-5); Yeast-Urine 4+ /hpf (None Seen)
[2022-08-19 06:34] LABS: Squamous Epithelial Cells - UA 10-25 SEEN /hpf (5-10)
--- NOTE | 2022-08-19 07:44 | PN.HOSP_ITS ---
Subjective Subjective Patient is a 47-year-old female with history of end-stage renal disease on dialysis presented with headaches and visual impairment found to have markedly elevated blood pressure admitted to monitored bed as a case of acute hypertensive urgency for subsequent management Objective Data Objective Data Vital Signs: Vital Signs Temp Pulse Resp BP Pulse Ox O2 Del Method O2 Flow Rate 98.1 F 82 18 149/72 H 100 Nasal Cannula 2 08/19/22 05:04 08/19/22 05:04 08/19/22 05:04 08/19/22 05:04 08/19/22 05:04 08/19/22 05:04 08/19/22 05:04 Oxygen Flow Rate (L/min) 2 Oxygen Delivery Method Nasal Cannula Weight: 133.7 kg Body Mass Index (BMI) 46.1 Intake & Output: Intake and Output for Last 24 Hours 08/17/22 08/18/22 08/19/22 23:59 23:59 23:59 Intake Total 240 / 240 Output Total 400 / 400 Balance -160 / -160 Lab / Micro Data Result Diagrams: 08/19/22 04:13 08/19/22 04:13 Labs: Laboratory Results - last 24 hr 08/18/22 17:44: WBC 6.1, RBC 3.95 L, Hgb 12.3, Hct 36.0 L, MCV 91.1, MCH 31.1, MCHC 34.2, RDW Std Deviation 51.8 H, RDW Coeff of Juan 15.4 H, Plt Count 224, MPV 9.4, Immature Gran % (Auto) 0.700, Neut % (Auto) 60.6, Lymph % (Auto) 26.6, [place] % (Auto) 6.8, Eos % (Auto) 4.3, Baso % (Auto) 1.0, Absolute Neuts (auto) 3.7, Absolute Lymphs (auto) 1.61, Nucleated RBC % 0 08/18/22 17:44: Sodium 133 L, Potassium 4.8, Chloride 102, Carbon Dioxide 22.0, Anion Gap 9, BUN 27 H, Creatinine 3.41 H, Estim Creat Clear Calc 20.05, Est GFR (MDRD) Af Amer 19 L, Est GFR (MDRD) Non-Af 15 L, BUN/Creatinine Ratio 7.9 L, Glucose 424 H, Calcium 8.8, Total Bilirubin 0.40, AST 22, ALT 27, Alkaline Phosphatase 94, Total Protein 6.4, Albumin 2.8 L, Globulin 3.6, Albumin/Globulin Ratio 0.8 L 08/18/22 17:44: Acetone Level NEGATIVE 08/18/22 23:43: POC Glucose 406 H 08/19/22 04:13: WBC 6.6, RBC 4.07 L, Hgb 12.5, Hct 37.1, MCV 91.2, MCH 30.7, MCHC 33.7, RDW Std Deviation 50.6 H, RDW Coeff of Juan 15.2 H, Plt Count 255, MPV 10.0, Immature Gran % (Auto) 0.600, Neut % (Auto) 88.5 H, Lymph % (Auto) 9.1 L, [place] % (Auto) 1.1, Eos % (Auto) 0.2, Baso % (Auto) 0.5, Absolute Neuts (auto) 5.9, Absolute Lymphs (auto) 0.60 L, Nucleated RBC % 0, Anisocytosis 1+ 08/19/22 04:13: Sodium 134 L, Potassium 5.4 H, Chloride 102, Carbon Dioxide 20.0 L, Anion Gap 12, BUN 33 H, Creatinine 3.66 H, Estim Creat Clear Calc 18.68, Est GFR (MDRD) Af Amer 17 L, Est GFR (MDRD) Non-Af 14 L, BUN/Creatinine Ratio 9.0 L, Glucose 554 H*, Calcium 8.8 08/19/22 06:15: Urine Color Yellow, Urine Clarity Cloudy, Urine pH 6.0, Ur Specific [place] 1.015, Urine Protein 500 H, Urine Glucose (UA) 1000 H, Urine Ketones 15 H, Urine Occult Blood 50 H, Urine Nitrite Negative, Urine Bilirubin Negative, Urine Urobilinogen Normal, Ur Leukocyte Esterase 500 H, Urine RBC 0-5 SEEN, Urine WBC 5-10 SEEN, Ur Squamous Epith Cells 10-25 SEEN, Urine Bacteria 2+, Urine Mucus 0 SEEN, Urine Yeast 4+ Radiography Diagnostic Testing: Radiology Impression Brain CT 08/18/22 17:34 IMPRESSION: Normal unenhanced CT scan of the brain. Electronically Signed: Param Rollins MD at 18:23 EST , Physical Exam Narrative GENERAL: Patient appears to be in some discomfort HEENT: Atraumatic; normocephalic EYES; Anicteric, Normal Conjunctiva NECK; supple, normal thyroid, RESPIRATORY: Diminished to auscultation CARDIOVASCULAR: Regular S1 S2, GI: soft, normoactive bowel sounds, : No Renal angle tenderness; EXTREMITIES: No edema, no clubbing, MUSCULOSKELETAL: no muscle wasting NEURO: Awake; no lateralizing signs. SKIN: No Rash PSYCH; Flat affect Assessment & Plan Assessment/Plan (1) Severe uncontrolled hypertension: (2) Headache: PLAN: Plan Patient is a 47-year-old female with history of end-stage renal disease on dialysis presented with headaches and visual impairment found to have markedly elevated blood pressure admitted to monitored bed as a case of acute hypertensive urgency for subsequent management 1. Acute hypertensive urgency ? Patient admitted to a monitored bed Home medications resumed. Hydralazine IV added as needed for systolic blood pressure greater than 160 2. Acute migrainous attack ? Patient being treated symptomatically 3. End-stage renal disease ? Dialysis days Wednesdays and Fridays consult placed to nephrology for dialysis orders 4. 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 Patient blood glucose markedly elevated. Patient and apparently declined Humalog stating she was allergic to Humalog plan is for patient to be switched to NovoLog which she uses. Adjusted her long-acting insulin in view of glucose being markedly elevated 5. Dyslipidemia -Patient is on statin therapy, continued at home dose 6. GERD ? On PPI 7. Gastroparesis ? Secondary to diabetes mellitus type 2 patient is on metoclopramide did continue 8. DVT prophylaxis ? Deemed to be low risk encourage early ambulation Charges/Coding Visit Charges Inpatient E&M: 75276 Subs Hosp L2
[2022-08-19] MEDS: Bumetanide 0.5 MG Tablet 1 MG PO (08:44)
[2022-08-19] MEDS: Loratadine 10 MG Tablet PO (08:44)
[2022-08-19] MEDS: Metoclopramide 5 MG TABLET PO ×2 (08:44→22:48)
[2022-08-19] MEDS: Dicyclomine 10 MG Capsule PO ×2 (08:44→22:48)
[2022-08-19] MEDS: lamoTRIgine 25 MG Tablet 50 MG PO (08:44)
[2022-08-19] MEDS: amLODIPine 10 MG Tablet PO (08:44)
[2022-08-19] MEDS: Pantoprazole Sodium 40 MG Tablet PO (08:44)
[2022-08-19] MEDS: Tamsulosin HCl 0.4 MG Capsule PO (08:45)
[2022-08-19] MEDS: Aspirin E.C. 81 MG Tablet PO (08:45)
[2022-08-19] MEDS: Carvedilol 6.25 MG Tablet PO ×2 (08:45→17:50)
[2022-08-19] MEDS: Losartan Potassium 50 MG Tablet PO (08:45)
--- NOTE | 2022-08-19 09:14 | CON.PCM.RE_ITS ---
Assessment & Plan Assessment/Plan (1) ESRD needing dialysis: PLAN: The patient usually dialyzes on a MWF schedule at [facility]. I will arrange for dialysis on her usual schedule today. We will keep the patient on MWF dialysis schedule while she is admitted to the hospital. (2) Severe uncontrolled hypertension: PLAN: BP is better controlled today. Suspect headache was actually exacerbating BP rather than the other way around. She is on losartan, carvedilol, and amlodipine. The patient also takes bumetanide. Further volume removal with dialysis today should help control BP as well. (3) Hyperkalemia: PLAN: Potassium level is slightly high at 5.4 mmol/L today. Much of this is likely due to severe hyperglycemia with blood sugar of 554 mg/dL this morning. We will dialyze the patient using 2K dialysate. Treatment of hyperglycemia as per hospital medicine service. (4) Type 2 diabetes mellitus: PLAN: Glycemic control as per hospital medicine service. (5) Headache: PLAN: The patient continues to complain of headache despite improvement of her blood pressure. Patient has a history of migraine headache, but prior headache has never been this severe. Suspect hypertension on presentation is due to pain/headache rather than the other way around. Further work-up of headache and treatment as per hospital medicine service. PLAN: Plan Nephrology plan discussed with Dr. Barcenas. HPI Consult Data Date of Consult: 08/19/22 HPI Narrative Reason for Consultation: ESRD HPI Narrative: The patient has a 47-year-old woman with past history of ESRD, type 2 diabetes mellitus, hypertension, ARIAN, PAD status post left partial foot amputation, and hyperlipidemia. The patient presented to the hospital on 08/18/2022 with complaint of headache which started 4 days prior to presentation. The patient also reports paresthesia involving her hands without weakness. The patient has chronic lower extremity paresthesia, but upper extremity symptoms are new. On evaluation in ED, the patient was found to be severely hypertensive. Her systolic blood pressure was as high as 230 mmHg. Nephrology is asked to see the patient for dialysis management in ESRD patient. The patient usually dialyzes at [facility] [place] on MWF schedule. She is followed there by my partner, Dr. Staples. The patient continues to complain of headache and photophobia. She reports seeing flashes of light and rainbow. She denies chest pain, shortness of breath, nausea, or vomiting. The patient reports that she has been taking her medication as prescribed. She has chronic lower extremity edema which has not increased in severity. [facility] Medical History Anxiety Asthma Fleming esophagus Blackout delivery delivered Chronic kidney disease Depression Dietary restriction FH: cholecystectomy Former smoker Gastric reflux High cholesterol History of CHF (congestive heart failure) History of Clostridium difficile infection History of edema History of ulceration Hypertension Insulin dependent diabetes mellitus Left foot amputee (~2019) Low iron Migraine headache On home oxygen therapy Seasonal allergies Sleep apnea Thyroid disease Uses wheelchair Vision impairment Walker as ambulation aid Wears glasses Home Medications aspirin 81 mg tablet,delayed release 81 mg PO DAILY 06/23/22 [History Last Taken Unknown] atorvastatin 20 mg tablet 20 mg PO QHS 06/23/22 [History Last Taken Unknown] bumetanide 1 mg tablet 1 mg PO DAILY 06/23/22 [History Last Taken Unknown] cetirizine 10 mg tablet 10 mg PO DAILY 06/23/22 [History Last Taken Unknown] dicyclomine 10 mg capsule 10 mg PO BID 06/23/22 [History Last Taken Unknown] insulin aspart U-100 100 unit/mL (3 mL) subcutaneous pen (Novolog Flexpen U-100 Insulin aspart) 6 - 10 unit subcut TID DIABETES 06/23/22 [History Last Taken 08/16/22] insulin detemir U-100 100 unit/mL (3 mL) subcutaneous pen (Levemir FlexTouch U- 100 Insulin) 17 unit subcut QHS DIABETES 06/23/22 [History Last Taken 08/17/22] lamotrigine 50 mg disintegrating tablet 50 mg PO DAILY 06/23/22 [History Last Taken Unknown] losartan 50 mg tablet 50 mg PO DAILY 06/23/22 [History Last Taken 07/07/22 04:00] metoclopramide HCl 10 mg tablet 10 mg PO TID 06/23/22 [History Last Taken Unknown] pantoprazole 40 mg tablet,delayed release 40 mg PO DAILY 06/23/22 [History Last Taken 07/07/22 04:00] rizatriptan 10 mg tablet See Rx Instructions PO .COMPLEX 06/23/22 [History Last Taken Unknown] sucralfate 100 mg/mL oral suspension 10 ml PO QACHS 06/23/22 [History Last Taken Unknown] tamsulosin 0.4 mg capsule 0.4 mg PO DAILY 06/23/22 [History Last Taken Unknown] oxycodone-acetaminophen 5 mg-325 mg tablet (Percocet) 1 tab PO Q8H PRN pain 5 days #14 tabs 07/07/22 [Rx Last Taken Unknown] ciprofloxacin HCl 500 mg tablet (Cipro) 500 mg PO BID 07/21/22 [History Last Taken Unknown] sucroferric oxyhydroxide 500 mg chewable tablet (Velphoro) 500 mg PO TIDCM kidney 08/19/22 [History Last Taken Unknown] Allergy/AdvReac Type Severity Reaction Status Date / Time lidocaine Allergy Severe Rash Verified 08/18/22 17:09 bacitracin Allergy Intermediate blisters Verified 08/18/22 17:09 hydrogen peroxide Allergy Intermediate blisters Verified 08/18/22 17:09 isopropyl alcohol Allergy Intermediate blisters Verified 08/18/22 17:09 Sulfa (Sulfonamide Allergy Intermediate Rash Verified 08/18/22 17:09 Antibiotics) Bleach (Sodium Hypochlorite) Allergy Hives Verified 08/18/22 17:09 insulin lispro Allergy Other Verified 08/19/22 05:46 [From Humalog U-100 Insulin] Latex, Natural Rubber Allergy Rash Verified 08/18/22 17:09 metformin AdvReac Vomiting Verified 08/18/22 17:09 neomycin AdvReac NEEDS Verified 08/18/22 17:09 [From Neosporin FOLLOW-UP ([id number])] polymyxin B AdvReac NEEDS Verified 08/18/22 17:09 [From Neosporin FOLLOW-UP ([id number])] Family History Other Arthritis Asthma CVA (cerebral vascular accident) Diabetes Heart disease High cholesterol Hypertension Kidney disease Osteoporosis Seizures Surgical History H/O left knee surgery H/O right knee surgery History of arteriovenostomy for renal dialysis History of bladder surgery History of History of cholecystectomy History of foot surgery History of liver biopsy History of lumpectomy of right breast History of shoulder surgery History of thoracentesis Hx of tonsillectomy Social History Smoking Status: Former smoker alcohol intake: never ROS ROS Narrative 07/13 ROS was done and is otherwise noncontributory to what is already document ed in the HPI. Physical Exam Narrative General: Alert and oriented x3, ill-appearing. HEENT: Normocephalic, atraumatic, mucous membrane moist without erythema. PERRLA, EOMI. Hearing is intact. Neck: Supple, no JVD. Heart: Normal S1, S2. No rubs, murmurs, or gallop. Lungs: Clear to auscultation bilaterally. Abdomen: Normal bowel sound, no bruit, soft, nontender, no guarding or rebound. Extremities: No clubbing, cyanosis, or edema. Musculoskeletal: Full passive range of motion. No joint swelling or tenderness. Skin: Warm and dry, no rash. Psychiatric: Normal mood and affect. Neurologic: No focal neurologic deficits. Lab / Micro Data Result Diagrams: 08/19/22 04:13 08/19/22 04:13 Labs: Laboratory Results - last 24 hr 08/18/22 17:44: WBC 6.1, RBC 3.95 L, Hgb 12.3, Hct 36.0 L, MCV 91.1, MCH 31.1, MCHC 34.2, RDW Std Deviation 51.8 H, RDW Coeff of Juan 15.4 H, Plt Count 224, MPV 9.4, Immature Gran % (Auto) 0.700, Neut % (Auto) 60.6, Lymph % (Auto) 26.6, [place] % (Auto) 6.8, Eos % (Auto) 4.3, Baso % (Auto) 1.0, Absolute Neuts (auto) 3.7, Absolute Lymphs (auto) 1.61, Nucleated RBC % 0 08/18/22 17:44: Sodium 133 L, Potassium 4.8, Chloride 102, Carbon Dioxide 22.0, Anion Gap 9, BUN 27 H, Creatinine 3.41 H, Estim Creat Clear Calc 20.05, Est GFR (MDRD) Af Amer 19 L, Est GFR (MDRD) Non-Af 15 L, BUN/Creatinine Ratio 7.9 L, Glucose 424 H, Calcium 8.8, Total Bilirubin 0.40, AST 22, ALT 27, Alkaline Phosphatase 94, Total Protein 6.4, Albumin 2.8 L, Globulin 3.6, Albumin/Globulin Ratio 0.8 L 08/18/22 17:44: Acetone Level NEGATIVE 08/18/22 23:43: POC Glucose 406 H 08/19/22 04:13: WBC 6.6, RBC 4.07 L, Hgb 12.5, Hct 37.1, MCV 91.2, MCH 30.7, MCHC 33.7, RDW Std Deviation 50.6 H, RDW Coeff of Juan 15.2 H, Plt Count 255, MPV 10.0, Immature Gran % (Auto) 0.600, Neut % (Auto) 88.5 H, Lymph % (Auto) 9.1 L, [place] % (Auto) 1.1, Eos % (Auto) 0.2, Baso % (Auto) 0.5, Absolute Neuts (auto) 5.9, Absolute Lymphs (auto) 0.60 L, Nucleated RBC % 0, Anisocytosis 1+ 08/19/22 04:13: Sodium 134 L, Potassium 5.4 H, Chloride 102, Carbon Dioxide 20.0 L, Anion Gap 12, BUN 33 H, Creatinine 3.66 H, Estim Creat Clear Calc 18.68, Est GFR (MDRD) Af Amer 17 L, Est GFR (MDRD) Non-Af 14 L, BUN/Creatinine Ratio 9.0 L, Glucose 554 H*, Calcium 8.8 08/19/22 06:15: Urine Color Yellow, Urine Clarity Cloudy, Urine pH 6.0, Ur Specific [place] 1.015, Urine Protein 500 H, Urine Glucose (UA) 1000 H, Urine Ketones 15 H, Urine Occult Blood 50 H, Urine Nitrite Negative, Urine Bilirubin Negative, Urine Urobilinogen Normal, Ur Leukocyte Esterase 500 H, Urine RBC 0-5 SEEN, Urine WBC 5-10 SEEN, Ur Squamous Epith Cells 10-25 SEEN, Urine Bacteria 2+, Urine Mucus 0 SEEN, Urine Yeast 4+ Radiology Impression Brain CT 08/18/22 17:34 IMPRESSION: Normal unenhanced CT scan of the brain. Electronically Signed: Param Rollins MD at 18:23 EST ,
--- NOTE | 2022-08-19 09:27 | WOUNDNOTE ---
wound photo: left lateral foot
--- NOTE | 2022-08-19 09:29 | WOUNDNOTE ---
wound photo: left great toe
[2022-08-19] MEDS: Insulin Glargine-YFGN 100 UNIT/ML Pen 25 UNIT SC ×2 (10:24→22:47)
[2022-08-19] MEDS: Ketorolac 15 MG/ML Vial IV (10:32)
[2022-08-19] MEDS: proMETHazine 25 MG/ML Syringe 12.5 MG IM (10:32)
[2022-08-19 10:45] LABS: Bedside Glucose > 500 mg/dL (74-106)
--- NOTE | 2022-08-19 12:20 | CASEMGMT ---
BEATRICE ESCALANTE AUTOMOTIVE SERVICE DIRECTOR CM to room to meet with patient for initial transition planning/care coordination assessment. BEATRICE ESCALANTE introduced self and role at [facility]. Pt voices understanding and consents to assessment at this time. Pt resting in bed in no distress at this time. She states she does have a headache still. Lights kept dimmed in room for pt comfort. Pt is A/O at this time and answers all questions appropriately. Care providers, pharmacy, and demographics verified/updated at this time. PCP: Dr Anaya Specialists: Dr Staples-nephrology. [facility]. Chair time @ 11:05 AM, Dr Cooper-vascular surgeon Pt had 1st appt scheduled w/Lindsay Hardy NP, for Dr Brady, but states she missed the appt d/t she thought it was on a Wednesday, but it was scheduled for Wednesday. She has not rescheduled the f/u appt yet, but plans to do so. BEATRICE ESCALANTE recommended she call as soon as possible, as appt slots fill up quickly. She voices understanding. Preferred Pharmacy: [facility]. Insurance: [facility] A/B Prescription Benefit: Yes-[employer] Living Will/HPOA: Pt does not currently have LW/HCPOA in Security Scorecard LNOK: Cousin-Laura Lujan is 1st contact. DaughterLiliane is listed as 2nd contact. Living Arrangements: Lives w/her cousin, Laura Mckeon, Laura Mckeon's sig other, Laura Ag's 3 sons: ages 16, 15, and 12, Ancelmo's mother, and Ancelmo's father, who stays in the furnished basement. Ancelmo's nephew lives on the property in a trailer. Pt states there are 4 steps total to enter the home and 2 people have to assist her to get up the stairs. She stays in the living room and uses a BSC in the living room and states she has no privacy to even use the BSC. She states she is trying to find her own place, but that it has been difficult to find something w/no stairs. She states she is trying to get on JO[place]. MACHINE GREASER BORIS, Cristian, made aware and states she will notify SW. Pt states she manages her own medications and appts. Her cousin/family takes her to the grocery store once a month. She is able to prepare most of her meals, but the boys assist w/some meals as well. The family manages home tasks. Transportation: Cousin/Laura Mckeon DME: has the following DME: BSC, leg brace, crutches, hospital bed, walker, W/C, power W/C, nebulizer, transfer board, O2 @ 2l/m @ HS from [facility]. She states he has concentrator and portable O2 tanks. She does not have a pulse ox. She denies using BIPAP or CPAP. Insulin/Diabetic supplies: Pt states she uses a Gissell system but is out of the Gissell buttons to read her BS's. She does not have a glucometer and would like a script for one. She states she will pick it up if it is affordable. She reports having enough insulin, but states she is out of her diabetic pills. She states the [facility] agreed to cover the expenses for her medications for 2 months and they sent funding to [facility] pharmacy. She states her PCP was supposed to send rx's to [facility] but they only sent 4 pills. She states she has contacted the PCP for further rx's but she had not heard back from anyone yet. While BEATRICE ESCALANTE in room talking w/pt, she received a call from Dr Anaya and answered it. There was no one on the other end. She plans to f/u with their office. MACHINE GREASER Cristian ESCALANTE, made aware. She states would like to get a shower chair, but states she would need a bariatric one. She was made aware [facility] does not cover for cost of shower chair and made aware of several locations one could be purchased from. She voices understanding. Pt states no need for further DME at this time. HHC/SNF: [place] of going [place] and [place]. She states she is currently active w/[facility] for therapy, nursing, and an aide for bathing. She states is in the process of switching to [facility] so she can have long-term HHC. She states she has contacted her PCP for a referral to be sent. She prefers to return home @ d/c w/ASH w/[facility] unless [facility] able to accept her for long-term services. MACHINE GREASERDustin BARRON CMGenet, made aware. Offered list of other [facility] agencies for other choices, but she declines. Pt wishes to return home and states has no further concerns with going home at time of discharge. Pt states does not smoke or drink ETOH. CM to follow for further discharge planning/needs. Pt voices no further concerns/needs at this time. Advised pt to ask for CM if any further questions/concerns/needs arise. Voices understanding. PLAN: Home w/HHC. Pt would like script for glucometer. SW referral for resources/housing information Bentley GUAJARDON RN CM
[2022-08-19 12:21] LABS: Bedside Glucose 443 mg/dL (74-106)
--- NOTE | 2022-08-19 17:44 | DIALYSIS ---
Hemodialysis tx completed x4.25 hours. Hypotension at times during tx due to all BP meds being given this morning. Fluid removal limited to 2800ml due to hypotension despite crit-line being a-profile throughout tx. Verbal report given to BEATRICE Guerra post tx
[2022-08-19 17:45] LABS: Bedside Glucose 187 mg/dL (74-106)
[2022-08-19] MEDS: Ceftriaxone 1 GM/50 ML BAG IV (21:05)
[2022-08-19] MEDS: Atorvastatin Calcium 20 MG Tablet PO (22:48)
[2022-08-19 23:21] LABS: Bedside Glucose 433 mg/dL (74-106)
[2022-08-20] VITALS (13 sets, daily range): BP systolic 85–119; BP diastolic 39–56; PULSE 60–70; RESP 16; TEMP 36.3–36.8; O2SAT 96–100
[2022-08-20] MEDS: Rizatriptan Benzoate 10 MG Tablet PO (00:53)
[2022-08-20 05:23] LABS: Absolute Lymphocyte Count 2.52 X10^3/uL (0.83-4.51); Absolute Neutrophil Count 3.4 X10^3/uL (2.0-7.7); Basophil# 0.05 X10^3/uL; Basophil% 0.8 % (0-1); Eosinophil# 0.22 X10^3/uL; Eosinophils% 3.3 % (0-5); Hematocrit 33.2 % (37-47); Hemoglobin 11.2 g/dL (12.0-15.0); Lymphocyte # 2.52 X10^3/ul (0.83-4.51); Lymphocyte % 38.2 % (19-41); Mean Corp Hgb Conc 33.7 g/dL (32-36); Mean Corpuscular Hgb 31.2 pg (27.0-32.0); Mean Corpuscular Volume 92.5 fL (81-99); Monocyte# 0.44 X10^3/uL; Monocyte% 6.7 % (0-10); NRBC Flagged by Analyzer 0 % (0-5); Neutrophil # 3.35 X10^3/uL (2.7-7.7); Neutrophil % 50.7 % (47-70); Platelet Count 192 K/mm3 (150-450); RBC Distribution Width CV 15.1 % (11.6-14.6); Red Blood Count 3.59 M/mm3 (4.2-5.4); White Blood Count 6.6 K/mm3 (4.4-11.0)
[2022-08-20 05:59] LABS: Anion Gap 6 (5-15); BUN 32 mg/dL (7-18); BUN/Creat Ratio 10.1 RATIO (10-20); Calcium,Total 8.1 mg/dL (8.5-10.1); Chloride 97 mmol/L (98-107); Creatinine, Serum 3.16 mg/dL (0.55-1.02); EST Glomerular Filtration Rate 17 mL/min (>60); Est Glom Filt Rate - Afr Amer 20 mL/min (>60); Estimated Creatinine Clearance 21.63 ml/min; Glucose 299 mg/dL (74-106); Magnesium 2.2 mg/dL (1.6-2.6); Phosphorus 3.1 mg/dL (2.5-4.9); Potassium 3.6 mmol/L (3.5-5.1); Sodium Level 132 mmol/L (136-145)
[2022-08-20] MEDS: Sucralfate 1 GM Tablet PO ×4 (06:37→21:30)
[2022-08-20 07:01] LABS: Bedside Glucose 335 mg/dL (74-106)
--- NOTE | 2022-08-20 07:43 | PN.HOSP_ITS ---
Subjective Subjective Patient seen, blood pressure has stabilized. She complains of feeling lightheaded and headache still persist Objective Data Objective Data Vital Signs: Vital Signs Temp Pulse Resp BP Pulse Ox O2 Del Method O2 Flow Rate 97.9 F 60 16 106/49 L 99 Nasal Cannula 2 08/20/22 06:26 08/20/22 06:26 08/20/22 06:26 08/20/22 06:26 08/20/22 06:26 08/20/22 06:26 08/20/22 06:26 Oxygen Flow Rate (L/min) 2 Oxygen Delivery Method Nasal Cannula Weight: 133.7 kg Body Mass Index (BMI) 46.1 Intake & Output: Intake and Output for Last 24 Hours 08/18/22 08/19/22 08/20/22 23:59 23:59 23:59 Intake Total 710 / 710 Output Total 3200 / 3200 0 / 0 Balance -2490 / -2490 0 / 0 Lab / Micro Data Result Diagrams: 08/20/22 05:00 08/20/22 05:00 Labs: Laboratory Results - last 24 hr 08/19/22 10:19: POC Glucose > 500 H* 08/19/22 11:40: POC Glucose 443 H 08/19/22 17:23: POC Glucose 187 H 08/19/22 22:44: POC Glucose 433 H 08/20/22 05:00: WBC 6.6, RBC 3.59 L, Hgb 11.2 L, Hct 33.2 L, MCV 92.5, MCH 31.2, MCHC 33.7, RDW Std Deviation 51.0 H, RDW Coeff of Juan 15.1 H, Plt Count 192, MPV 10.0, Immature Gran % (Auto) 0.300, Neut % (Auto) 50.7, Lymph % (Auto) 38.2, [place] % (Auto) 6.7, Eos % (Auto) 3.3, Baso % (Auto) 0.8, Absolute Neuts (auto) 3.4, Absolute Lymphs (auto) 2.52, Nucleated RBC % 0 08/20/22 05:00: Sodium 132 L, Potassium 3.6, Chloride 97 L, Carbon Dioxide 29.0, Anion Gap 6, BUN 32 H, Creatinine 3.16 H, Estim Creat Clear Calc 21.63, Est GFR (MDRD) Af Amer 20 L, Est GFR (MDRD) Non-Af 17 L, BUN/Creatinine Ratio 10.1, Glucose 299 H, Calcium 8.1 L, Phosphorus 3.1, Magnesium 2.2 08/20/22 06:36: POC Glucose 335 H Physical Exam Narrative GENERAL: Patient appears to be in some discomfort HEENT: Atraumatic; normocephalic EYES; Anicteric, Normal Conjunctiva NECK; supple, normal thyroid, RESPIRATORY: Diminished to auscultation CARDIOVASCULAR: Regular S1 S2, GI: soft, normoactive bowel sounds, : No Renal angle tenderness; EXTREMITIES: No edema, no clubbing, MUSCULOSKELETAL: no muscle wasting NEURO: Awake; no lateralizing signs. SKIN: No Rash PSYCH; Flat affect Assessment & Plan Assessment/Plan (1) Severe uncontrolled hypertension: (2) Headache: PLAN: Plan Patient is a 47-year-old female with history of end-stage renal disease on dialysis presented with headaches and visual impairment found to have markedly elevated blood pressure admitted to monitored bed as a case of acute hypertensive urgency for subsequent management 1. Acute hypertensive urgency ? Patient admitted to a monitored bed Home medications resumed. Hydralazine IV added as needed for systolic blood pressure greater than 160 ? 08/20/2022. Precipitous drop in patient blood pressure. She complains of feeling lightheaded. Further adjustment made to her antihypertensive regimen 2. Acute migrainous attack ? Patient being treated symptomatically ? 08/20/2022 patient still remains symptomatic 3. End-stage renal disease ? Dialysis days Wednesdays and Fridays consult placed to nephrology for dialysis orders 4. 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 Patient blood glucose markedly elevated. Patient and apparently declined Humalog stating she was allergic to Humalog plan is for patient to be switched to NovoLog which she uses. Adjusted her long-acting insulin in view of glucose being markedly elevated 5. Dyslipidemia -Patient is on statin therapy, continued at home dose 6. GERD ? On PPI 7. Gastroparesis ? Secondary to diabetes mellitus type 2 patient is on metoclopramide did continue 8. DVT prophylaxis ? Deemed to be low risk encourage early ambulation Charges/Coding Visit Charges Inpatient E&M: 81311 Subs Hosp L2
--- NOTE | 2022-08-20 09:01 | PCM.PN.REN ---
Subjective Subjective Resting in bed. States still has headache. No other complaints. Objective Data Objective Data Vital Signs: Vital Signs Temp Pulse Resp BP Pulse Ox O2 Del Method O2 Flow Rate 97.9 F 60 16 106/49 L 98 Nasal Cannula 2 08/20/22 06:26 08/20/22 06:26 08/20/22 06:26 08/20/22 06:26 08/20/22 07:41 08/20/22 07:41 08/20/22 07:41 Oxygen Flow Rate (L/min) 2 Oxygen Delivery Method Nasal Cannula Weight: 133.7 kg Body Mass Index (BMI) 46.1 Intake & Output: Intake and Output for Last 24 Hours 08/18/22 08/19/22 08/20/22 23:59 23:59 23:59 Intake Total 710 / 710 Output Total 3200 / 3200 0 / 0 Balance -2490 / -2490 0 / 0 Lab / Micro Data Result Diagrams: 08/20/22 05:00 08/20/22 05:00 Labs: Laboratory Results - last 24 hr 08/19/22 10:19: POC Glucose > 500 H* 08/19/22 11:40: POC Glucose 443 H 08/19/22 17:23: POC Glucose 187 H 08/19/22 22:44: POC Glucose 433 H 08/20/22 05:00: WBC 6.6, RBC 3.59 L, Hgb 11.2 L, Hct 33.2 L, MCV 92.5, MCH 31.2, MCHC 33.7, RDW Std Deviation 51.0 H, RDW Coeff of Juan 15.1 H, Plt Count 192, MPV 10.0, Immature Gran % (Auto) 0.300, Neut % (Auto) 50.7, Lymph % (Auto) 38.2, [place] % (Auto) 6.7, Eos % (Auto) 3.3, Baso % (Auto) 0.8, Absolute Neuts (auto) 3.4, Absolute Lymphs (auto) 2.52, Nucleated RBC % 0 08/20/22 05:00: Sodium 132 L, Potassium 3.6, Chloride 97 L, Carbon Dioxide 29.0, Anion Gap 6, BUN 32 H, Creatinine 3.16 H, Estim Creat Clear Calc 21.63, Est GFR (MDRD) Af Amer 20 L, Est GFR (MDRD) Non-Af 17 L, BUN/Creatinine Ratio 10.1, Glucose 299 H, Calcium 8.1 L, Phosphorus 3.1, Magnesium 2.2 08/20/22 06:36: POC Glucose 335 H Physical Exam Narrative General: Alert and oriented x3 Heart: Normal S1, S2. No rubs, murmurs, or gallop. Lungs: Clear to auscultation bilaterally. Abdomen: Normal bowel sounds, soft, nontender Extremities: No pitting edema noted bilateral lower legs. Left upper arm AV fistula positive thrill and bruit Skin: Warm and dry, no rash. Tunneled HD catheter dressing clean, dry and intact Assessment & Plan Assessment/Plan (1) ESRD needing dialysis: PLAN: The patient usually dialyzes on a MWF schedule at [facility]. No acute indication for dialysis today, plan for next dialysis tomorrow. We will keep the patient on MWF dialysis schedule while she is admitted to the hospital. (2) Severe uncontrolled hypertension: PLAN: BP is better controlled today to even on low side today. Suspect headache was actually exacerbating BP rather than the other way around. She is on losartan, carvedilol, and amlodipine. The patient also takes bumetanide. Further volume removal with dialysis today should help control BP as well. Dry weight 127 kg (3) Hyperkalemia: PLAN: Potassium normalized. (4) Type 2 diabetes mellitus: PLAN: Glycemic control as per hospital medicine service. (5) Headache: PLAN: The patient continues to complain of headaches despite improvement of her blood pressure. Patient has a history of migraine headaches, but prior headache has never been this severe. Suspect hypertension on presentation is due to pain/headache rather than the other way around. Further work-up of headache and treatment as per hospital medicine service. PLAN: Plan discharge planning in progress. SW working with patient for assistance, medication and housing.
[2022-08-20] MEDS: Metoclopramide 5 MG TABLET PO ×2 (09:22→21:30)
[2022-08-20] MEDS: Pantoprazole Sodium 40 MG Tablet PO (09:22)
[2022-08-20] MEDS: Aspirin E.C. 81 MG Tablet PO (09:22)
[2022-08-20] MEDS: Tamsulosin HCl 0.4 MG Capsule PO (09:22)
[2022-08-20] MEDS: Dicyclomine 10 MG Capsule PO ×2 (09:22→21:30)
[2022-08-20] MEDS: lamoTRIgine 25 MG Tablet 50 MG PO (09:22)
[2022-08-20] MEDS: Ceftriaxone 1 GM/50 ML BAG IV (09:27)
--- NOTE | 2022-08-20 11:18 | CASEMGMT ---
SW received referral for patient regarding housing resources and Medicaid. SW reviewed patient's chart and patient has Medicaid. SW wrote down the number on a piece of paper for patient. SW met with patient. Introduced [facility] Patient was lying in bed with her face covered up as she has a bad headache. Patient was willing to talk with SW. SW let patient know that it appears she has Medicaid. SW told patient that SW wrote down the number for her. SW also told patient that SW has information on [facility] housing program, [facility], and a list of places that are available for rent. SW put these resources on patient's table. Patient asked SW to metal turner the light and close the door. SW did this and left the room. Lacey NUNEZ
[2022-08-20 11:31] LABS: Bedside Glucose 227 mg/dL (74-106)
[2022-08-20] MEDS: Ketorolac 15 MG/ML Vial IV (15:57)
[2022-08-20] MEDS: SUMAtriptan 6 MG/0.5 ML Vial SC (15:58)
[2022-08-20] MEDS: Carvedilol 6.25 MG Tablet PO (16:03)
[2022-08-20 16:26] LABS: Bedside Glucose 224 mg/dL (74-106)
[2022-08-20] MEDS: Insulin Glargine-YFGN 100 UNIT/ML Pen 25 UNIT SC (21:29)
[2022-08-20] MEDS: MELATONIN 3 MG TABLET PO (21:30)
[2022-08-20] MEDS: oxyCODONE 5 MG Tablet PO (21:30)
[2022-08-20] MEDS: Atorvastatin Calcium 20 MG Tablet PO (21:30)
[2022-08-20] MEDS: 0.9% Saline Lock 10 ML Syringe IV (21:35)
[2022-08-20 21:56] LABS: Bedside Glucose 239 mg/dL (74-106)
[2022-08-21 02:58] VITALS: PULSE 57
[2022-08-21 03:00] VITALS: BP 114/46; PULSE 56; RESP 16; TEMP 36.3; O2SAT 98
[2022-08-21] MEDS: Rizatriptan Benzoate 10 MG Tablet PO ×2 (03:22→06:33)
[2022-08-21] MEDS: Sucralfate 1 GM Tablet PO ×2 (06:33→12:39)
[2022-08-21 06:48] LABS: Absolute Neutrophil Count 2.6 X10^3/uL (2.0-7.7); Basophil# 0.06 X10^3/uL; Eosinophil# 0.22 X10^3/uL; Eosinophils% 3.8 % (0-5); Hematocrit 34.4 % (37-47); Hemoglobin 11.9 g/dL (12.0-15.0); Lymphocyte % 43.5 % (19-41); Mean Corp Hgb Conc 34.6 g/dL (32-36); Mean Corpuscular Hgb 32.2 pg (27.0-32.0); Mean Platelet Vol. 9.5 fl (6.2-12.0); Monocyte# 0.33 X10^3/uL; Monocyte% 5.7 % (0-10); NRBC Flagged by Analyzer 0 % (0-5); Neutrophil # 2.62 X10^3/uL (2.7-7.7); Neutrophil % 45.7 % (47-70); Platelet Count 184 K/mm3 (150-450); RBC Distribution Width CV 14.9 % (11.6-14.6); RBC Distribution Width SD 50.9 fl (35.1-43.9); White Blood Count 5.8 K/mm3 (4.4-11.0)
[2022-08-21 07:00] VITALS: PULSE 54
[2022-08-21 07:01] LABS: Bedside Glucose 189 mg/dL (74-106)
[2022-08-21 07:16] LABS: Anion Gap 8 (5-15); BUN 43 mg/dL (7-18); BUN/Creat Ratio 10.2 RATIO (10-20); Calcium,Total 8.7 mg/dL (8.5-10.1); Chloride 99 mmol/L (98-107); Creatinine, Serum 4.21 mg/dL (0.55-1.02); EST Glomerular Filtration Rate 12 mL/min (>60); Est Glom Filt Rate - Afr Amer 15 mL/min (>60); Estimated Creatinine Clearance 16.24 ml/min; Glucose 221 mg/dL (74-106); Potassium 3.7 mmol/L (3.5-5.1); Sodium Level 134 mmol/L (136-145)
--- NOTE | 2022-08-21 07:36 | PCM.PN.HOSP ---
Subjective Subjective Pressure remains relatively stable still complains of headache. Objective Data Objective Data Vital Signs: Vital Signs Temp Pulse Resp BP Pulse Ox O2 Del Method O2 Flow Rate 97.3 F L 56 L 16 114/46 L 98 Nasal Cannula 2 08/21/22 03:00 08/21/22 03:00 08/21/22 03:00 08/21/22 03:00 08/21/22 03:00 08/21/22 03:15 08/21/22 03:15 Oxygen Flow Rate (L/min) 2 Oxygen Delivery Method Nasal Cannula Weight: 133.7 kg Body Mass Index (BMI) 46.1 Intake & Output: Intake and Output for Last 24 Hours 08/19/22 08/20/22 08/21/22 23:59 23:59 23:59 Intake Total 710 / 710 650 / 650 Output Total 3200 / 3200 Balance -2490 / -2490 649 / 649 Lab / Micro Data Result Diagrams: 08/21/22 06:30 08/21/22 06:30 Labs: Laboratory Results - last 24 hr 08/20/22 11:07: POC Glucose 227 H 08/20/22 15:56: POC Glucose 224 H 08/20/22 21:21: POC Glucose 239 H 08/21/22 06:30: WBC 5.8, RBC 3.70 L, Hgb 11.9 L, Hct 34.4 L, MCV 93.0, MCH 32.2 H, MCHC 34.6, RDW Std Deviation 50.9 H, RDW Coeff of Juan 14.9 H, Plt Count 184, MPV 9.5, Immature Gran % (Auto) 0.300, Neut % (Auto) 45.7 L, Lymph % (Auto) 43.5 H, [place] % (Auto) 5.7, Eos % (Auto) 3.8, Baso % (Auto) 1.0, Absolute Neuts (auto) 2.6, Absolute Lymphs (auto) 2.50, Nucleated RBC % 0 08/21/22 06:30: Sodium 134 L, Potassium 3.7, Chloride 99, Carbon Dioxide 27.0, Anion Gap 8, BUN 43 H, Creatinine 4.21 H, Estim Creat Clear Calc 16.24, Est GFR (MDRD) Af Amer 15 L, Est GFR (MDRD) Non-Af 12 L, BUN/Creatinine Ratio 10.2, Glucose 221 H, Calcium 8.7 08/21/22 06:31: POC Glucose 189 H Physical Exam Narrative GENERAL: Patient appears to be in some discomfort HEENT: Atraumatic; normocephalic EYES; Anicteric, Normal Conjunctiva NECK; supple, normal thyroid, RESPIRATORY: Diminished to auscultation CARDIOVASCULAR: Regular S1 S2, GI: soft, normoactive bowel sounds, : No Renal angle tenderness; EXTREMITIES: No edema, no clubbing, MUSCULOSKELETAL: no muscle wasting NEURO: Awake; no lateralizing signs. SKIN: No Rash PSYCH; Flat affect Assessment & Plan Assessment/Plan (1) Severe uncontrolled hypertension: (2) Headache: PLAN: Plan Patient is a 47-year-old female with history of end-stage renal disease on dialysis presented with headaches and visual impairment found to have markedly elevated blood pressure admitted to monitored bed as a case of acute hypertensive urgency for subsequent management 1. Acute hypertensive urgency ? Patient admitted to a monitored bed Home medications resumed. Hydralazine IV added as needed for systolic blood pressure greater than 160 ? 08/20/2022. Precipitous drop in patient blood pressure. She complains of feeling lightheaded. Further adjustment made to her antihypertensive regimen 2. Acute migrainous attack ? Patient being treated symptomatically ? 08/20/2022 patient still remains symptomatic 3. End-stage renal disease ? Dialysis days Wednesdays and Fridays consult placed to nephrology for dialysis orders 4. 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 Patient blood glucose markedly elevated. Patient and apparently declined Humalog stating she was allergic to Humalog plan is for patient to be switched to NovoLog which she uses. Adjusted her long-acting insulin in view of glucose being markedly elevated 5. Dyslipidemia -Patient is on statin therapy, continued at home dose 6. GERD ? On PPI 7. Gastroparesis ? Secondary to diabetes mellitus type 2 patient is on metoclopramide did continue 8. DVT prophylaxis ? Deemed to be low risk encourage early ambulation 9. Class III obesity with BMI of 46 ? Weight loss advised Charges/Coding Visit Charges Inpatient E&M: 64340 Subs Hosp L2
[2022-08-21 09:00] VITALS: BP 157/78; PULSE 55; RESP 16; TEMP 36.7; O2SAT 100
[2022-08-21] MEDS: Ketorolac 30 MG/ML Syringe IV (09:27)
[2022-08-21] MEDS: 0.9% Saline Lock 10 ML Syringe IV (09:28)
--- NOTE | 2022-08-21 09:51 | DS.PCM_ITS ---
Providers Date of Admission: 08/18/22 Date of Discharge: 08/21/22 Primary Care Physician: Dr. Maddy Anaya MD Consultations 08/18/22 23:22 Consult: Nephrology Routine Consulting Provider: José Miguel Staples Reason for Consult: Dialysis EMERGENT Consult: No MD Notified: Yes Date Notified: 08/19/22 Time Notified: 06:12 Method of Notification: Answering Service 08/19/22 00:07 Consult: Onc/Wound/restaurant supervisor Routine Comment: Reason for Consult:: left foot blood blister Reason For Visit: HYPERTENSIVE URGENCY Diagnosis Discharge Diagnosis (1) Severe uncontrolled hypertension: Status: Acute Code(s): I10 - Essential (primary) hypertension (2) Headache: Status: Acute Code(s): R51.9 - Headache, unspecified Plan Patient is a 47-year-old female with history of end-stage renal disease on dialysis presented with headaches and visual impairment found to have markedly elevated blood pressure admitted to monitored bed as a case of acute hypertensive urgency for subsequent management 1. Acute hypertensive urgency ? Patient admitted to a monitored bed Home medications resumed. Hydralazine IV added as needed for systolic blood pressure greater than 160 ? 08/20/2022. Precipitous drop in patient blood pressure. She complains of feeling lightheaded. Further adjustment made to her antihypertensive regimen 2. Acute migrainous attack ? Patient being treated symptomatically ? 08/20/2022 patient still remains symptomatic 3. End-stage renal disease ? Dialysis days Wednesdays and Fridays consult placed to nephrology for dialysis orders 4. 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 Patient blood glucose markedly elevated. Patient and apparently declined Humalog stating she was allergic to Humalog plan is for patient to be switched to NovoLog which she uses. Adjusted her long-acting insulin in view of glucose being markedly elevated 5. Dyslipidemia -Patient is on statin therapy, continued at home dose 6. GERD ? On PPI 7. Gastroparesis ? Secondary to diabetes mellitus type 2 patient is on metoclopramide did continue 8. DVT prophylaxis ? Deemed to be low risk encourage early ambulation 9. Class III obesity with BMI of 46 ? Weight loss advised Medications at Discharge Home Medications aspirin 81 mg tablet,delayed release 81 mg PO DAILY 06/23/22 atorvastatin 20 mg tablet 20 mg PO QHS 06/23/22 bumetanide 1 mg tablet 1 mg PO DAILY 06/23/22 cetirizine 10 mg tablet 10 mg PO DAILY 06/23/22 dicyclomine 10 mg capsule 10 mg PO BID 06/23/22 insulin aspart U-100 100 unit/mL (3 mL) subcutaneous pen (Novolog Flexpen U-100 Insulin aspart) 6 - 10 unit subcut TID DIABETES 06/23/22 insulin detemir U-100 100 unit/mL (3 mL) subcutaneous pen (Levemir FlexTouch U- 100 Insulin) 17 unit subcut QHS DIABETES 06/23/22 lamotrigine 50 mg disintegrating tablet 50 mg PO DAILY 06/23/22 losartan 50 mg tablet 50 mg PO DAILY 06/23/22 metoclopramide HCl 10 mg tablet 10 mg PO TID 06/23/22 pantoprazole 40 mg tablet,delayed release 40 mg PO DAILY 06/23/22 rizatriptan 10 mg tablet See Rx Instructions PO .COMPLEX 06/23/22 sucralfate 100 mg/mL oral suspension 10 ml PO QACHS 06/23/22 tamsulosin 0.4 mg capsule 0.4 mg PO DAILY 06/23/22 oxycodone-acetaminophen 5 mg-325 mg tablet (Percocet) 1 tab PO Q8H PRN pain 5 days #14 tabs 07/07/22 sucroferric oxyhydroxide 500 mg chewable tablet (Velphoro) 500 mg PO TIDCM kidney 08/19/22 amlodipine 10 mg tablet 10 mg PO DAILY 30 days #30 tabs 08/21/22 carvedilol 6.25 mg tablet 6.25 mg PO BIDCM 30 days #60 tabs 08/21/22 ibuprofen 400 mg tablet 400 mg PO Q6H PRN headache #20 tabs 08/21/22 promethazine 25 mg tablet 25 mg PO Q6H PRN headache #20 tabs 08/21/22 Hospital Course Summary of Care Provided Minutes Spent on Discharge: 39 Weight / BMI Weight Weight: 133.7 kg Body Mass Index (BMI) 46.1 ABG / Lab / Microbiology Data Result Diagrams: 08/21/22 06:30 08/21/22 06:30 Laboratory: Laboratory Results - last 24 hr 08/20/22 11:07: POC Glucose 227 H 08/20/22 15:56: POC Glucose 224 H 08/20/22 21:21: POC Glucose 239 H 08/21/22 06:30: WBC 5.8, RBC 3.70 L, Hgb 11.9 L, Hct 34.4 L, MCV 93.0, MCH 32.2 H, MCHC 34.6, RDW Std Deviation 50.9 H, RDW Coeff of Juan 14.9 H, Plt Count 184, MPV 9.5, Immature Gran % (Auto) 0.300, Neut % (Auto) 45.7 L, Lymph % (Auto) 43.5 H, [place] % (Auto) 5.7, Eos % (Auto) 3.8, Baso % (Auto) 1.0, Absolute Neuts (auto) 2.6, Absolute Lymphs (auto) 2.50, Nucleated RBC % 0 08/21/22 06:30: Sodium 134 L, Potassium 3.7, Chloride 99, Carbon Dioxide 27.0, Anion Gap 8, BUN 43 H, Creatinine 4.21 H, Estim Creat Clear Calc 16.24, Est GFR (MDRD) Af Amer 15 L, Est GFR (MDRD) Non-Af 12 L, BUN/Creatinine Ratio 10.2, Glucose 221 H, Calcium 8.7 08/21/22 06:31: POC Glucose 189 H D/C Instructions Discharge Diet: 1800 Calorie Control Diet and Renal Diet Discharge Activity: Return to Normal Activity Call your doctor if you observe: Fever of 101 or Higher, Shortness of breath, Fainting spells and Chest pain Meaningful Use Info Meaningful Use Diagnoses (Choose all that apply): None applicable Discharge Plan Admission Admit Date/Time: 08/18/22 22:09 Attending Provider: Vincenzo Barcenas Primary Care Provider: Maddy Anaya Consulting Providers: José Miguel Staples ; Fabiano Ortega Discharge Orders/Prescriptions Prescriptions: New carvedilol 6.25 mg Tablet 6.25 mg PO BIDCM 30 Days Qty: 60 0RF amlodipine 10 mg Tablet 10 mg PO DAILY 30 Days Qty: 30 0RF promethazine 25 mg tablet 25 mg PO Q6H PRN (Reason: headache) Qty: 20 0RF ibuprofen 400 mg tablet 400 mg PO Q6H PRN (Reason: headache) Qty: 20 0RF Continued aspirin 81 mg tablet,delayed release (DR/EC) 81 mg PO DAILY cetirizine 10 mg tablet 10 mg PO DAILY dicyclomine 10 mg capsule 10 mg PO BID pantoprazole 40 mg tablet,delayed release (DR/EC) 40 mg PO DAILY lamotrigine 50 mg tablet,disintegrating 50 mg PO DAILY atorvastatin 20 mg tablet 20 mg PO QHS sucralfate 100 mg/mL suspension 10 ml PO QACHS metoclopramide HCl 10 mg tablet 10 mg PO TID bumetanide 1 mg tablet 1 mg PO DAILY losartan 50 mg tablet 50 mg PO DAILY rizatriptan 10 mg tablet See Rx Instructions PO .COMPLEX Rx Instructions: take 1 tab at onset of headache; if no relief may repeat 1 tab after at least 2 hrs; max = 3 tabs/24 hr PO tamsulosin 0.4 mg capsule 0.4 mg PO DAILY insulin aspart U-100 [Novolog Flexpen U-100 Insulin] 100 unit/mL (3 mL) insulin pen 6 - 10 unit subcut TID Label Comments: 150-200 : 6U 200-250: 12u 250-300: 18 u anything over 300: call MD Frankel FlexTouch U-100 Insuln 100 unit/mL (3 mL) insulin pen 17 unit subcut QHS oxycodone-acetaminophen [Percocet] 5-325 mg tablet 1 tab PO Q8H PRN (Reason: pain) 5 Days Qty: 14 0RF Velphoro 500 mg tablet,chewable 500 mg PO TIDCM Discontinued ciprofloxacin HCl [Cipro] 500 mg tablet 500 mg PO BID Referrals / Follow Up: Maddy Anaya MD [Primary Care Provider] - In 1 Week Disposition Disposition (needs filled in before D/C Order can be placed): Home, Self Care Charges/Coding Visit Charges Inpatient E&M: 67952 Disch Hosp
--- NOTE | 2022-08-21 10:22 | CASEMGMT ---
Addendum entered by Nita De León 08/21/22 13:59: Dr. Barcenas unable to print or e-scribe glucometer script so script written by hand and sent with pt. Alden BARRON CM Addendum entered by Nita De León 08/21/22 10:52: Per [facility], [facility] states willing for ASH and will be 24-48 hrs from d/c. Per nursing, pt has only been on 2L while sleeping which is her home dose. Alden BARRON CM Original Note: ASH sent via [facility] to [facility] and pt to be tested for increased home oxygen. Dr. Barcenas aware to send script for glucometer. CM to follow. Alden BARRON CM
[2022-08-21 12:16] LABS: Bedside Glucose 140 mg/dL (74-106)
[2022-08-21 12:30] VITALS: BP 102/53; PULSE 58; RESP 16; TEMP 36.7; O2SAT 98
[2022-08-21] MEDS: Aspirin E.C. 81 MG Tablet PO (12:39)
[2022-08-21] MEDS: Dicyclomine 10 MG Capsule PO (12:39)
[2022-08-21] MEDS: lamoTRIgine 25 MG Tablet 50 MG PO (12:39)
[2022-08-21] MEDS: Tamsulosin HCl 0.4 MG Capsule PO (12:39)
[2022-08-21] MEDS: Pantoprazole Sodium 40 MG Tablet PO (12:40)
[2022-08-21] MEDS: Ceftriaxone 1 GM/50 ML BAG IV (12:40)
[2022-08-21] MEDS: Metoclopramide 5 MG TABLET PO (12:40)
[2022-08-21] MEDS: Heparin 10,000 UNITS/10 ML Vial 2500 UNITS IV (12:45)
--- NOTE | 2022-08-21 12:58 | DIALYSIS ---
Hemodialysis tx completed x 4.25 hours without complications. Pt tolerated tx well, fluid removed 4,500ml using crit-line monitor to B-profile. Verbal report to BEATRICE Clark post tx
== END 2022-08-21 14:36 | disposition home or self-care (01) | DRG 304 ==
LOC: ED 21:51 → PCU 22:07
PROVIDERS: Admitting Provider Family Medicine; Emergency Provider Emergency Medicine; PCP Family Medicine; Visit Provider Internal Medicine
DX: I16.0 Hypertensive urgency (principal); N18.6 End stage renal disease; Z68.42 Body mass index [BMI] 45.0-49.9, adult; E11.22 Type 2 diabetes mellitus with diabetic chronic kidney disease; I12.0 Hypertensive chronic kidney disease with stage 5 chronic kidney disease or end stage renal disease; Z79.4 Long term (current) use of insulin; Z99.2 Dependence on renal dialysis; E11.51 Type 2 diabetes mellitus with diabetic peripheral angiopathy without gangrene; E11.43 Type 2 diabetes mellitus with diabetic autonomic (poly)neuropathy; E11.65 Type 2 diabetes mellitus with hyperglycemia; E66.01 Morbid (severe) obesity due to excess calories; K31.84 Gastroparesis; K21.9 Gastro-esophageal reflux disease without esophagitis; G43.909 Migraine, unspecified, not intractable, without status migrainosus; E78.5 Hyperlipidemia, unspecified; E87.5 Hyperkalemia; Z82.3 Family history of stroke; Z79.2 Long term (current) use of antibiotics; Z79.82 Long term (current) use of aspirin; Z87.891 Personal history of nicotine dependence
CPT/HCPCS: 36415; 70450; 80048; 80053; 81001; 82009; 82962; 83735; 84100; 85025; 90937; 97802; 99285; A4216; G0257; J3030

== ENCOUNTER 2022-09-01 07:04 | Inpatient (IN) | payer MEDICARE, MEDICAID, SELFPAY ==
[2022-09-01] VITALS (10 sets, daily range): BP systolic 130–190; BP diastolic 59–90; PULSE 67–79; RESP 9–19; TEMP 36.3–37; O2SAT 96–100; BMI 43.8; BMI 44.9
--- NOTE | 2022-09-01 07:16 | CT_ITS ---
STUDY: CT BRAIN WITHOUT CONTRAST REASON FOR EXAM: Female, 47 years old. INtractable Headache RADIATION DOSAGE (If Supplied By Facility): CTDIvol = ( 47.06 ) mGy, DLP = ( 890.33 ) mGycm TECHNIQUE: Transaxial CT imaging of the brain was performed without administration of intravenous contrast material. Individualized dose optimization techniques were used for this CT. COMPARISON: Comparison is made with prior study dated 08/18/2022. FINDINGS: Normal soft tissue structures. Normal calvarium. Normal size ventricles and extra-axial spaces for the patient''s age. Normal white matter tracts of the cerebral hemispheres. Normal basal ganglia and thalami. Normal brainstem. Normal cerebellum. There is no intracranial hemorrhage. There are no findings of an acute ischemic infarction. Normal visualized paranasal sinuses. CT/Brain/Head without Contrast IMPRESSION: Normal unenhanced CT scan of the brain. Electronically Signed: Vaughn Alves MD at 9:25 EST ,
--- NOTE | 2022-09-01 07:20 | EDS_ITS ---
HPI History of Present Illness Chief Complaint: Headache Narrative Narrative: 47-year-old female multiple medical problems ranging from end-stage renal disease on dialysis Wednesday, Wednesday, and Wednesday, has migraine headaches and hypertension presents with headache since 2 weeks ago. In review of her chart, she was admitted for hypertensive urgency as she has intractable headache. She states her headache is never really improved over the last 2 weeks and this ain't no migraine for 2 weeks. Over the last few days she stated that she has had blurry vision and things looked aiken. She is nauseated but has not vomited. Her blood pressure has been elevated also. She has tried everything for headache including Tylenol, Motrin, and her triptan medication. Nothing seems to make it better but she feels it is getting worse. Her blood pressures been out of control. She states her cousin had called the squad because of her headache. She states she completed her dialysis yesterday, and does not miss her scheduled dialysis appointments. [facility] Medical History Anxiety Asthma Fleming esophagus Blackout delivery delivered Chronic kidney disease Depression Dietary restriction Disc disorder FH: cholecystectomy Former smoker Gastric reflux High cholesterol History of CHF (congestive heart failure) History of Clostridium difficile infection History of edema History of ulceration Hypertension Insulin dependent diabetes mellitus Left foot amputee (~2019) Low iron Migraine headache On home oxygen therapy Seasonal allergies Sleep apnea Thyroid disease Uses wheelchair Vision impairment Walker as ambulation aid Wears glasses Home Medications aspirin 81 mg tablet,delayed release 81 mg PO DAILY HEART HEALTH 06/23/22 [History Last Taken 08/31/22] atorvastatin 20 mg tablet 20 mg PO QHS CHOLESTEROL 06/23/22 [History Last Taken 08/31/22] bumetanide 1 mg tablet 1 mg PO DAILY FLUID 06/23/22 [History Last Taken Unknown] cetirizine 10 mg tablet 10 mg PO DAILY ALLERGIES 06/23/22 [History Last Taken 08/31/22] dicyclomine 10 mg capsule 10 mg PO BID STOMACH 06/23/22 [History Last Taken 08/31/22] insulin aspart U-100 100 unit/mL (3 mL) subcutaneous pen (Novolog Flexpen U-100 Insulin aspart) 6 - 10 unit subcut TID DIABETES 06/23/22 [History Last Taken 08/31/22] insulin detemir U-100 100 unit/mL (3 mL) subcutaneous pen (Levemir FlexTouch U- 100 Insulin) 17 unit subcut QHS DIABETES 06/23/22 [History Last Taken 08/31/22] lamotrigine 50 mg disintegrating tablet 50 mg PO DAILY MOOD 06/23/22 [History Last Taken 08/31/22] losartan 50 mg tablet 50 mg PO DAILY BLOOD PRESSURE 06/23/22 [History Last Taken 08/31/22] pantoprazole 40 mg tablet,delayed release 40 mg PO DAILY ACID REFLUX 06/23/22 [ History Last Taken 08/31/22] tamsulosin 0.4 mg capsule 0.4 mg PO DAILY BLADDER 06/23/22 [History Last Taken Unknown] oxycodone-acetaminophen 5 mg-325 mg tablet (Percocet) 1 tab PO Q8H PRN pain 5 days #14 tabs 07/07/22 [Rx Last Taken 08/31/22] sucroferric oxyhydroxide 500 mg chewable tablet (Velphoro) 500 mg PO TIDCM kidney 08/19/22 [History Last Taken 08/31/22] carvedilol 6.25 mg tablet 6.25 mg PO BIDCM 30 days #60 tabs 08/21/22 [Rx Last Taken Unknown] ibuprofen 400 mg tablet 400 mg PO Q6H PRN headache #20 tabs 08/21/22 [Rx Last Taken 08/31/22] amlodipine 10 mg tablet 10 mg PO DAILY BLOOD PRESSURE 09/01/22 [History Last Taken Unknown] ergocalciferol (vitamin D2) 1,250 mcg (50,000 unit) capsule 1,250 mcg PO MOWEFR SUPPLEMENT 09/01/22 [History Last Taken Unknown] ferrous sulfate 325 mg (65 mg iron) tablet (FeroSul) 325 mg PO MOWEFR SUPPLEMENT 09/01/22 [History Last Taken Unknown] gabapentin 100 mg capsule 100 mg PO TID NERVE PAIN 09/01/22 [History Last Taken Unknown] promethazine 25 mg tablet 25 mg PO Q6H PRN NAUSEA/VOMITING 09/01/22 [History Last Taken Unknown] rizatriptan 10 mg disintegrating tablet 10 mg PO UD PRN Headache 09/01/22 [History Last Taken 3 Days Ago ~08/29/22] sennosides 8.6 mg-docusate sodium 50 mg tablet (Senexon-S) 1 - 2 tab PO DAILY CONSTIPATION 09/01/22 [History Last Taken 08/31/22] vitamin B complex-vitamin C-folic acid 0.8 mg tablet (Nephro-Chris) 1 tab PO D AILY SUPPLEMENT 09/01/22 [History Last Taken Unknown] Allergy/AdvReac Type Severity Reaction Status Date / Time lidocaine Allergy Severe Rash Verified 08/18/22 17:09 bacitracin Allergy Intermediate blisters Verified 08/18/22 17:09 hydrogen peroxide Allergy Intermediate blisters Verified 08/18/22 17:09 isopropyl alcohol Allergy Intermediate blisters Verified 08/18/22 17:09 Sulfa (Sulfonamide Allergy Intermediate Rash Verified 08/18/22 17:09 Antibiotics) Bleach (Sodium Hypochlorite) Allergy Hives Verified 08/18/22 17:09 insulin lispro Allergy Other Verified 08/19/22 05:46 [From Humalog U-100 Insulin] Latex, Natural Rubber Allergy Rash Verified 08/18/22 17:09 metformin AdvReac Vomiting Verified 08/18/22 17:09 neomycin AdvReac NEEDS Verified 08/18/22 17:09 [From Neosporin FOLLOW-UP ([id number])] polymyxin B AdvReac NEEDS Verified 08/18/22 17:09 [From Neosporin FOLLOW-UP ([id number])] Family History Other Arthritis Asthma CVA (cerebral vascular accident) Diabetes Heart disease High cholesterol Hypertension Kidney disease Osteoporosis Seizures Surgical History H/O left knee surgery H/O right knee surgery History of arteriovenostomy for renal dialysis History of bladder surgery History of History of cholecystectomy History of foot surgery History of liver biopsy History of lumpectomy of right breast History of shoulder surgery History of thoracentesis Hx of tonsillectomy Social History (Updated 09/01/22 @ 11:55 by Mellisa Paiz) household members: family housing: house Smoking Status: Former smoker alcohol intake: never ROS ROS ED ROS Narrative Constitutional: No fever, no chills. HEENT: No sore throat. No neck pain. No loss of vision. Reports blurry vision/visual disturbance. No rhinorrhea. Cardiovascular: No chest pain. No palpitations. No pedal edema. Respiratory: No cough, no shortness of breath. Abdominal: No abdominal pain. Positive nausea. No vomiting. Genitourinary: No dysuria. No hematuria. Musculoskeletal: No myalgias. No arthralgias. Neurologic: Positive headaches. Continued for the last 2 weeks since prior observation/admission. No dizziness. No lightheadedness. Skin: No rash. No change in color. Psychiatric: No depression. No anxiety. EXAM Physical Exam Narrative Exam Narrative: Afebrile. Vital signs noted. HEENT: Normocephalic. Atraumatic. PERRL, EOMI. Neck soft and supple. No point tenderness or step off. Cardiovascular: Regular rate and rhythm. No murmurs, rubs, or gallops appreciated. Respiratory: No tachypnea. Lungs clear to auscultation bilaterally. Gastrointestinal: Abdomen soft, nontender, with normoactive bowel sounds. No rebound or guarding. Neurological: Awake. Alert. Nonfocal, nonlateralizing. Skin: No rash. Normal color. No pallor. Musculoskeletal: No pedal edema. Full range of motion extremities. Psychiatric: Positive anxiety. Tearful on examination. Const Vital Signs: 09/01/22 07:04 09/01/22 09:04 09/01/22 10:58 Temperature 97.3 F L 97.4 F L Temperature Source Temporal Temporal Pulse Rate 74 75 74 Respiratory Rate 9 L 19 H 13 Blood Pressure 190/86 H 152/64 H 168/90 H Blood Pressure Mean 120 93 116 Pulse Ox 100 98 96 Oxygen Delivery Method Room Air Room Air Room Air MDM MDM [facility] Narrative Medical decision making narrative: I reviewed her prior record. She continued to have headache during her hospital stay/migrainous attack. Her home medications had been changed and hydralazine was ordered for any systolic blood pressure over 160. Her current pressure is 190/86. Additionally, she was administered Reglan and Benadryl. Last time, she had been administered Compazine and Benadryl without relief of her symptoms. CBC shows normal white count of 6.5, hemoglobin stable at 12.8, hematocrit 38.4, platelet count normal at 274. She appears slightly dehydrated with hyponatremia of 129 and a chloride of 97. Her creatinine is elevated at 3.38 consistent with her end-stage renal disease, BUN elevated at 19. Acetone level is negative. This was obtained because her glucose was elevated at 542, but she has a normal anion gap of 7. I do not feel that she is in diabetic ketoacidosis. She was administered 10 units of insulin aspartame as she has an allergy to lispro. CT of the brain shows no acute hemorrhage. Upon repeat examination, even after Ativan 1 mg intravenously and Reglan and Benadryl, she states that her headache has not improved at all. She feels as if she cannot go home and take her medications for her hypertension. After hydralazine her systolic blood pressure is now 156. Her intractable headache, hypertension, and hyperglycemia merits discussion with the hospitalist for observation. I discussed patient with Dr. Francisco. Patient will be assigned to observation on PCU. She is in stable condition. Lab Data Attestation: I reviewed the patient's lab results. Labs: Laboratory Results - last 24 hr 09/01/22 09/01/22 09/01/22 07:35 07:35 10:48 WBC 6.5 RBC 4.08 L Hgb 12.8 Hct 38.4 MCV 94.1 MCH 31.4 MCHC 33.3 RDW Std Deviation 46.8 H RDW Coeff of Juan 14.1 Plt Count 274 MPV 9.8 Sodium 129 L Potassium 5.0 Chloride 97 L Carbon Dioxide 25.0 Anion Gap 7 BUN 19 H Creatinine 3.38 H Estim Creat Clear Calc 20.22 Est GFR (MDRD) Af Amer 19 L Est GFR (MDRD) Non-Af 16 L BUN/Creatinine Ratio 5.6 L Glucose 542 H* Calcium 8.9 Acetone Level NEGATIVE Radiography Diagnostic Testing: Clinical Impression(s) from Imaging Studies Brain CT 09/01/22 07:16 IMPRESSION: Normal unenhanced CT scan of the brain. Electronically Signed: Vaughn Alves MD at 9:25 EST , Discharge Plan Dx/Rx/DC Orders Clinical Impression: Intractable headache, Hyperglycemia, Hypertension Disposition Disposition: Acute Care Hospital [facility] Discharge Date/Time: 09/01/22 11:31
[2022-09-01 07:46] LABS: Hematocrit 38.4 % (37-47); Hemoglobin 12.8 g/dL (12.0-15.0); Mean Corp Hgb Conc 33.3 g/dL (32-36); Mean Corpuscular Hgb 31.4 pg (27.0-32.0); Mean Corpuscular Volume 94.1 fL (81-99); Mean Platelet Vol. 9.8 fl (6.2-12.0); Platelet Count 274 K/mm3 (150-450); RBC Distribution Width CV 14.1 % (11.6-14.6); RBC Distribution Width SD 46.8 fl (35.1-43.9); Red Blood Count 4.08 M/mm3 (4.2-5.4); White Blood Count 6.5 K/mm3 (4.4-11.0)
[2022-09-01] MEDS: LORazepam 2 MG/ML Syringe 1 MG IV (07:51)
[2022-09-01] MEDS: DiphenhydrAMINE 50 MG/ML Syringe 25 MG IV (07:51)
[2022-09-01] MEDS: hydrALAZINE 20 MG/ML Vial IV (07:51)
[2022-09-01] MEDS: Metoclopramide 10 MG/2 ML Vial IV (07:54)
[2022-09-01 08:10] LABS: Anion Gap 7 (5-15); BUN 19 mg/dL (7-18); BUN/Creat Ratio 5.6 RATIO (10-20); Calcium,Total 8.9 mg/dL (8.5-10.1); Chloride 97 mmol/L (98-107); Creatinine, Serum 3.38 mg/dL (0.55-1.02); EST Glomerular Filtration Rate 16 mL/min (>60); Est Glom Filt Rate - Afr Amer 19 mL/min (>60); Estimated Creatinine Clearance 20.22 ml/min; Glucose 542 mg/dL (74-106); Sodium Level 129 mmol/L (136-145)
--- NOTE | 2022-09-01 10:52 | HP.PCM.HOS_ITS ---
HPI - General General Date of Admission: 09/01/22 Date of Service: 09/01/22 Chief Complaint: headache HPI Narrative XOCHITL CHERRY, is a 47 F with a PMH as outlined who presents via the ED on 09/01/2022 with a complaint of headache which had been going on for about 2 weeks prior to admission. She was admitted about 2 weeks ago for headache and managed for migraines. She says the headaches have still not improved and have become even more severe. It got severe to the point where she had to come into the hospital today. She admits to photophobia but denies any chest pain, palpitations, nausea or vomiting. 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 She denies any weakness or numbness in any extremities. Review of systems otherwise negative. Vitals in the ED were blood pressure of 175/75, pulse rate of 75 and respiratory of 16. Her temperature was 98.1 Fahrenheit she was saturating 100% on room air. CBC and BMP were unremarkable. BMP showed sodium was 129, Cr was 3.38 and potassium was 5. GLucose was 542. Serum alcohol was negative. CT brain was normal. SHe is being admitted to be managed for intractable headache and migraine. [facility] Medical History (Updated 09/01/22 @ 12:10 by Brendan Cali MD) Anxiety Asthma Fleming esophagus Blackout delivery delivered Chronic kidney disease Depression Dietary restriction Disc disorder FH: cholecystectomy Former smoker Gastric reflux High cholesterol History of CHF (congestive heart failure) History of Clostridium difficile infection History of edema History of ulceration Hypertension Insulin dependent diabetes mellitus Left foot amputee (~2019) Low iron Migraine headache On home oxygen therapy Seasonal allergies Sleep apnea Thyroid disease Uses wheelchair Vision impairment Walker as ambulation aid Wears glasses Home Medications aspirin 81 mg tablet,delayed release 81 mg PO DAILY HEART HEALTH 06/23/22 [History Last Taken 08/31/22] atorvastatin 20 mg tablet 20 mg PO QHS CHOLESTEROL 06/23/22 [History Last Taken 08/31/22] bumetanide 1 mg tablet 1 mg PO DAILY FLUID 06/23/22 [History Last Taken Unknown] cetirizine 10 mg tablet 10 mg PO DAILY ALLERGIES 06/23/22 [History Last Taken 08/31/22] dicyclomine 10 mg capsule 10 mg PO BID STOMACH 06/23/22 [History Last Taken ] insulin aspart U-100 100 unit/mL (3 mL) subcutaneous pen (Novolog Flexpen U-100 Insulin aspart) 6 - 10 unit subcut TID DIABETES 06/23/22 [History Last Taken 08/31/22] insulin detemir U-100 100 unit/mL (3 mL) subcutaneous pen (Levemir FlexTouch U- 100 Insulin) 17 unit subcut QHS DIABETES 06/23/22 [History Last Taken 08/31/22] lamotrigine 50 mg disintegrating tablet 50 mg PO DAILY MOOD 06/23/22 [History Last Taken 08/31/22] losartan 50 mg tablet 50 mg PO DAILY BLOOD PRESSURE 06/23/22 [History Last Taken 08/31/22] pantoprazole 40 mg tablet,delayed release 40 mg PO DAILY ACID REFLUX 06/23/22 [History Last Taken 08/31/22] tamsulosin 0.4 mg capsule 0.4 mg PO DAILY BLADDER 06/23/22 [History Last Taken Unknown] oxycodone-acetaminophen 5 mg-325 mg tablet (Percocet) 1 tab PO Q8H PRN pain 5 days #14 tabs 07/07/22 [Rx Last Taken 08/31/22] sucroferric oxyhydroxide 500 mg chewable tablet (Velphoro) 500 mg PO TIDCM kidney 08/19/22 [History Last Taken 08/31/22] carvedilol 6.25 mg tablet 6.25 mg PO BIDCM 30 days #60 tabs 08/21/22 [Rx Last Taken Unknown] ibuprofen 400 mg tablet 400 mg PO Q6H PRN headache #20 tabs 08/21/22 [Rx Last Taken 08/31/22] amlodipine 10 mg tablet 10 mg PO DAILY BLOOD PRESSURE 09/01/22 [History Last Taken Unknown] ergocalciferol (vitamin D2) 1,250 mcg (50,000 unit) capsule 1,250 mcg PO MOWEFR SUPPLEMENT 09/01/22 [History Last Taken Unknown] ferrous sulfate 325 mg (65 mg iron) tablet (FeroSul) 325 mg PO MOWEFR SUPPLEMENT 09/01/22 [History Last Taken Unknown] gabapentin 100 mg capsule 100 mg PO TID NERVE PAIN 09/01/22 [History Last Taken Unknown] promethazine 25 mg tablet 25 mg PO Q6H PRN NAUSEA/VOMITING 09/01/22 [History Last Taken Unknown] rizatriptan 10 mg disintegrating tablet 10 mg PO UD PRN Headache 09/01/22 [History Last Taken 3 Days Ago ~08/29/22] sennosides 8.6 mg-docusate sodium 50 mg tablet (Senexon-S) 1 - 2 tab PO DAILY CONSTIPATION 09/01/22 [History Last Taken 08/31/22] vitamin B complex-vitamin C-folic acid 0.8 mg tablet (Nephro-Chris) 1 tab PO DAILY SUPPLEMENT 09/01/22 [History Last Taken Unknown] Allergy/AdvReac Type Severity Reaction Status Date / Time lidocaine Allergy Severe Rash Verified 08/18/22 17:09 bacitracin Allergy Intermediate blisters Verified 08/18/22 17:09 hydrogen peroxide Allergy Intermediate blisters Verified 08/18/22 17:09 isopropyl alcohol Allergy Intermediate blisters Verified 08/18/22 17:09 Sulfa (Sulfonamide Allergy Intermediate Rash Verified 08/18/22 17:09 Antibiotics) Bleach (Sodium Hypochlorite) Allergy Hives Verified 08/18/22 17:09 insulin lispro Allergy Other Verified 08/19/22 05:46 [From Humalog U-100 Insulin] Latex, Natural Rubber Allergy Rash Verified 08/18/22 17:09 metformin AdvReac Vomiting Verified 08/18/22 17:09 neomycin AdvReac NEEDS Verified 08/18/22 17:09 [From Neosporin FOLLOW-UP ([id number])] polymyxin B AdvReac NEEDS Verified 08/18/22 17:09 [From Neosporin FOLLOW-UP ([id number])] Family History Other Arthritis Asthma CVA (cerebral vascular accident) Diabetes Heart disease High cholesterol Hypertension Kidney disease Osteoporosis Seizures Surgical History H/O left knee surgery H/O right knee surgery History of arteriovenostomy for renal dialysis History of bladder surgery History of History of cholecystectomy History of foot surgery History of liver biopsy History of lumpectomy of right breast History of shoulder surgery History of thoracentesis Hx of tonsillectomy Social History (Updated 09/01/22 @ 11:55 by Mellisa Paiz) household members: family housing: house Smoking Status: Former smoker alcohol intake: never ROS Constitutional Constitutional: Reports fatigue, malaise and weakness; Denies anorexia, chills or fever(s) Eyes Eyes: Reports change in vision and other Details: photophobia ENT HEENT: Reports headache(s); Denies dysphagia, hearing loss, nasal congestion, nasal discharge, sinus pressure or sore throat Cardiovascular Cardiovascular: Denies chest pain, dyspnea on exertion, edema or lightheadedness Respiratory/Chest Respiratory/Chest: Reports shortness of breath with exertion; Denies cough, productive cough or shortness of breath at rest Gastrointestinal Gastrointestinal: Denies abdominal pain, constipation, diarrhea, dyspepsia, nausea or vomiting Genitourinary Genitourinary: Denies burning urination or dysuria Musculoskeletal Musculoskeletal: Denies arthralgias, back pain or joint pain Neurologic Neurologic: Reports dizziness, headache(s), paresthesias and tingling; Denies confusion, focal weakness, numbness, seizure-like activity, seizures or tremor(s) Psychiatric Psychiatric: Denies anxiety or depression Endocrine Endocrinology: Denies change in body appearance Hematologic/Lymphatic Hematologic/Lymphatic: Denies anemia Vital Signs Vital Signs Vital Signs: 09/01/22 07:04 09/01/22 09:04 Temperature 97.3 F L Temperature Source Temporal Pulse Rate 74 75 Respiratory Rate 9 L 19 H Blood Pressure 190/86 H 152/64 H Blood Pressure Mean 120 93 Pulse Ox 100 98 Oxygen Delivery Method Room Air Room Air Weight Weight: 279 lb 12.266 oz Body Mass Index (BMI) 43.8 Physical Exam Narrative had a towel over her eyes due to headache Const alert and oriented x3 Constitutional Narrative: in mild distress due to headache HEENT normocephalic, head/scalp atraumatic, hearing grossly normal bilaterally and moist oral mucous membranes Mouth: oral and palatal mucosa normal Eyes PERRL, EOMs intact bilaterally and conjunctivae normal Neck no lymphadenopathy and supple Resp normal respiratory effort, no retractions, no use of accessory muscles and clear to auscultation bilaterally Cardio regular rate, regular rhythm, S1 normal heart sound, S2 normal heart sound and no murmurs GI normal to inspection, nondistended, normoactive bowel sounds, soft to palpation and non-tender Extremity normal to inspection, full ROM and no clubbing, cyanosis or edema Neuro oriented x3, CN's II-XII intact bilaterally, moves all extremities and no focal motor deficits Sensorium / Orientation: awake and alert Speech: speech normal Motor Exam: strength 5/5 throughout Psych Psych Narrative: flat affect Results Lab / Micro Data Result Diagrams: 09/01/22 07:35 09/01/22 07:35 Labs: Laboratory Results - last 24 hr 09/01/22 07:35: WBC 6.5, RBC 4.08 L, Hgb 12.8, Hct 38.4, MCV 94.1, MCH 31.4, MCHC 33.3, RDW Std Deviation 46.8 H, RDW Coeff of Juan 14.1, Plt Count 274, MPV 9.8 09/01/22 07:35: Sodium 129 L, Potassium 5.0, Chloride 97 L, Carbon Dioxide 25.0, Anion Gap 7, BUN 19 H, Creatinine 3.38 H, Estim Creat Clear Calc 20.22, Est GFR (MDRD) Af Amer 19 L, Est GFR (MDRD) Non-Af 16 L, BUN/Creatinine Ratio 5.6 L, Glucose 542 H*, Calcium 8.[address] 09/01/22 07:16 IMPRESSION: Normal unenhanced CT scan of the brain. Electronically Signed: Vaughn Alves MD at 9:25 EST Reading Location ID and State: [address] [place] [address] , Service support , Assessment & Plan Assessment/Plan (1) Intractable headache: (2) Hyperglycemia: PLAN: Plan #Intractable headache * was admitted 2 weeks ago and managed for migraine headache. Headache has still persisted. * says it is very severe now. 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 * No elevated anion gap. Will hydrate with IV fluids. Continue home insulin dose of 17 units nightly. * Insulin sliding scale. Also informed by pharmacy that patient prefers her own home NovoLog because she has an allergy to the lispro. Patient continue her home NovoLog. * Accu-Cheks SAM S. * On metoclorpromide for gastroparesis * #Hypertension: Was elevated on admission. This likely due to severe headache. On carvedilol and losartan #Hyperlipidemia: On statin #ESRD: On dialysis Wednesdays and Fridays. Consult nephrology. #GERD: On PPI DVT prophylaxis: lovenox, renally dosed Code status: full code Charges/Coding Visit Charges OBSV E&M: 62070 Initial observation care L3
--- NOTE | 2022-09-01 11:03 | NURSING ---
PCU OBS KORAM INTRACTABLE HEADACHE, HYPERGLYCEMIA, HYPERTENSION
--- NOTE | 2022-09-01 11:07 | ED.RN ---
SPOKE WITH PHARMACY REGARDING INSULIN ORDER SAYING PENDING. PHARMACY STATED THEY CALLED AND SPOKE WITH AN ER NURSE THAT SAID THEY WOULD INFORM THE PROVIDER THAT WE DONT HAVE NOVOLOG AND THAT THE PT IS ALLERGIC TO HUMALOG. PHARMACY IS WAITING ON NEW ORDERS.
[2022-09-01 12:14] LABS: Bedside Glucose > 500 mg/dL (74-106)
--- NOTE | 2022-09-01 13:44 | MRI_ITS ---
EXAM: MR HEAD WITHOUT INTRAVENOUS CONTRAST CLINICAL INDICATION: intractable headache TECHNIQUE: Multiplanar and multisequence MR images of the brain were obtained without intravenous contrast. This report was created using [employer] report generation technology. COMPARISON: Head CT 09/01/2022. FINDINGS: BRAIN AND EXTRA-AXIAL SPACES: No intracranial mass, mass effect, or midline shift. No hemorrhage or hydrocephalus. Restricted diffusion in the right occipital lobe, subtle on diffusion-weighted imaging, concerning for acute infarct. T2 and FLAIR imaging shows signal hypointensity in the right occipital white matter, atypical for infarct. Basal cisterns are unremarkable. SELLA: Pituitary gland is normal in height. AUDITORY SYSTEM: Unremarkable. BONES/JOINTS: Unremarkable. SINUSES: Unremarkable as visualized. Clear. MASTOID AIR CELLS: Unremarkable as visualized. Clear. ORBITS: Unremarkable as visualized. VASCULATURE: Normal flow voids in the major intracranial circulation. MRI/Brain without Contrast IMPRESSION: Findings suspicious for right occipital infarct. Findings on T2-weighted imaging are somewhat atypical, and contrast-enhanced sequences may be helpful to exclude underlying lesion. Electronically Signed: Bernadette Franklin MD at 17:16 EST Reading Location ID and State: [id number] / Tel , Service support ,
[2022-09-01] MEDS: LORazepam 1 MG Tablet PO (14:53)
[2022-09-01] MEDS: 0.9% Normal Saline 1,000 ML 125 ML IV (14:54)
[2022-09-01] MEDS: SUMAtriptan 6 MG/0.5 ML Vial SC (16:29)
[2022-09-01] MEDS: Gabapentin 100 MG Capsule PO ×2 (16:39→22:16)
[2022-09-01 17:00] LABS: Bedside Glucose 422 mg/dL (74-106)
[2022-09-01] MEDS: Carvedilol 6.25 MG Tablet PO (17:48)
[2022-09-01] MEDS: Dicyclomine 10 MG Capsule PO (17:48)
[2022-09-01] MEDS: Tamsulosin HCl 0.4 MG Capsule PO (17:48)
[2022-09-01] MEDS: Insulin Glargine-YFGN 100 UNIT/ML Pen 17 UNIT SC (22:15)
[2022-09-01] MEDS: Atorvastatin Calcium 20 MG Tablet PO (22:16)
[2022-09-01] MEDS: Rizatriptan Benzoate 10 MG Tablet PO (22:17)
[2022-09-01] MEDS: proMETHazine 25 MG Tablet PO (22:17)
[2022-09-02] VITALS (12 sets, daily range): BP systolic 128–155; BP diastolic 61–84; PULSE 59–74; RESP 18; TEMP 36.1–37; O2SAT 94–99; BMI 44.9
--- NOTE | 2022-09-02 | CDU_ITS ---
Reason For Study: Acute CVA Rt. Velocities/BP Lt. Velocities/BP Prox CCA 81.7/13.5 cm/sec. Prox CCA 119.3/17 cm/sec. Mid CCA 78.5/15.7 cm/sec. Mid CCA 102.8/15.2 cm/sec. Dist CCA 78.4/19 cm/sec. Dist CCA 84.6/15.2 cm/sec. Prox ICA 64.2/16.3 cm/sec. Prox ICA 60.8/17 cm/sec. Mid ICA 80.2/26.2 cm/sec. Mid ICA 93.7/27.9 cm/sec. Dist ICA 85.1/28.6 cm/sec. Dist ICA 80.9/18.8 cm/sec. Rt. ICA/CCA = 1.08. Lt. ICA/CCA = 0.91. Prox ECA 135.7/7.9 cm/sec. Prox ECA 132.1/7.9 cm/sec. Rt. Vert. 46.5/12.4 cm/sec. Lt. Vert. 55.3/15.2 cm/sec. Right Extracranial There is intimal thickening but no significant atherosclerotic plaque noted in the right common carotid artery. There is intimal thickening but no significant atherosclerotic plaque noted in the right internal carotid artery. There is intimal thickening but no significant atherosclerotic plaque noted in the right external carotid artery. Antegrade flow is noted in the right vertebral artery. Left Extracranial There is intimal thickening but no significant atherosclerotic plaque noted in the left common carotid artery. There is intimal thickening but no significant atherosclerotic plaque noted in the left internal carotid artery. There is intimal thickening but no significant atherosclerotic plaque noted in the left external carotid artery. Antegrade flow is noted in the left vertebral artery. Procedure Carotid Duplex 38868. This is a Carotid Duplex examination using B-mode, color flow and specral Doppler. Exam performed portable in patient room. VL/Carotid Duplex Ultrasound Interpretation Summary Intimal thickening of the proximal right internal carotid artery with less than 50% stenosis Less than 50% stenosis right external carotid artery Intimal thickening of the proximal left internal carotid artery with less than 50% stenosis Less than 50% stenosis left external carotid artery Patent and antegrade vertebral arteries bilaterally Ordering Physician: Selam Francisco Referring Physician: Maddy Betancourt Performed By: Nita Goodwin RVT
[2022-09-02 00:21] LABS: Bedside Glucose 343 mg/dL (74-106)
[2022-09-02] MEDS: 0.9% Normal Saline 1,000 ML 125 ML IV (01:01)
[2022-09-02 05:35] LABS: Absolute Lymphocyte Count 3.09 X10^3/uL (0.83-4.51); Absolute Neutrophil Count 3.1 X10^3/uL (2.0-7.7); Basophil# 0.06 X10^3/uL; Basophil% 0.9 % (0-1); Eosinophil# 0.23 X10^3/uL; Eosinophils% 3.3 % (0-5); Hematocrit 35.6 % (37-47); Lymphocyte # 3.09 X10^3/ul (0.83-4.51); Lymphocyte % 44.8 % (19-41); Mean Corp Hgb Conc 33.7 g/dL (32-36); Mean Platelet Vol. 9.5 fl (6.2-12.0); Monocyte# 0.43 X10^3/uL; Monocyte% 6.2 % (0-10); NRBC Flagged by Analyzer 0 % (0-5); Neutrophil # 3.06 X10^3/uL (2.7-7.7); Neutrophil % 44.4 % (47-70); Platelet Count 255 K/mm3 (150-450); RBC Distribution Width CV 14.4 % (11.6-14.6); RBC Distribution Width SD 46.8 fl (35.1-43.9); Red Blood Count 3.87 M/mm3 (4.2-5.4); White Blood Count 6.9 K/mm3 (4.4-11.0)
[2022-09-02 06:01] LABS: Anion Gap 6 (5-15); BUN 23 mg/dL (7-18); BUN/Creat Ratio 5.9 RATIO (10-20); Calcium,Total 8.7 mg/dL (8.5-10.1); Chloride 104 mmol/L (98-107); Creatinine, Serum 3.89 mg/dL (0.55-1.02); EST Glomerular Filtration Rate 13 mL/min (>60); Est Glom Filt Rate - Afr Amer 16 mL/min (>60); Estimated Creatinine Clearance 17.57 ml/min; Glucose 231 mg/dL (74-106); Potassium 4.4 mmol/L (3.5-5.1); Sodium Level 135 mmol/L (136-145)
[2022-09-02] MEDS: Gabapentin 100 MG Capsule PO ×3 (06:50→21:03)
[2022-09-02] MEDS: Dicyclomine 10 MG Capsule PO ×2 (06:50→17:56)
[2022-09-02 07:15] LABS: Bedside Glucose 202 mg/dL (74-106)
--- NOTE | 2022-09-02 07:54 | MRI_ITS ---
EXAM: MR HEAD WITH INTRAVENOUS CONTRAST CLINICAL INDICATION: headache, FOLLOW UP TO NON CONTRAST MRI 09/01/22 TECHNIQUE: Multiplanar and multisequence MR images of the brain were obtained with intravenous contrast. This report was created using [email or web address] report generation technology. CONTRAST: IV 25 cc Clariscan COMPARISON: None. FINDINGS: BRAIN AND EXTRA-AXIAL SPACES: No contrast enhancement of the acute ischemic infarct in the right cuneus. No abnormal enhancing lesions intra-axially or extra-axially. No intra- or extra-axial hemorrhage. No intracranial mass or mass effect. Posterior fossa structures are unremarkable. Ventricles are appropriate for age. No hydrocephalus. Basal cisterns are patent. SELLA: Unremarkable. Normal sella turcica, pituitary gland, infundibular stalk, optic chiasm and hypothalamus. AUDITORY SYSTEM: Unremarkable. The internal auditory canals are patent. BONES/JOINTS: Unremarkable. No discrete lytic or blastic abnormalities. SINUSES: Unremarkable as visualized. Clear. MASTOID AIR CELLS: Unremarkable as visualized. Clear. ORBITS: Unremarkable as visualized. Both globes, extraocular muscles, optic nerves and retrobulbar fat appear unremarkable. VASCULATURE: Unremarkable as visualized. Normal flow voids in the major intracranial circulation. MRI/Brain WITH Contrast IMPRESSION: Nonenhancing acute ischemic infarct in the cuneus of the right occipital lobe. Electronically Signed: Brendan Whaley MD at 10:19 EST ,
[2022-09-02] MEDS: Carvedilol 6.25 MG Tablet PO (09:02)
[2022-09-02] MEDS: Losartan Potassium 50 MG Tablet PO (09:03)
[2022-09-02] MEDS: Loratadine 10 MG Tablet PO (09:03)
[2022-09-02] MEDS: Bumetanide 0.5 MG Tablet 1 MG PO (09:03)
[2022-09-02] MEDS: Senna/Docusate Sodium 1 Tablet PO (09:03)
[2022-09-02] MEDS: Aspirin E.C. 81 MG Tablet PO (09:03)
[2022-09-02] MEDS: amLODIPine 10 MG Tablet PO (09:03)
[2022-09-02] MEDS: Enoxaparin 30 MG/0.3 ML Syringe SC (09:03)
[2022-09-02] MEDS: Pantoprazole Sodium 40 MG Tablet PO (09:03)
[2022-09-02] MEDS: lamoTRIgine 25 MG Tablet 50 MG PO (09:04)
--- NOTE | 2022-09-02 09:04 | TELEMED_ITS ---
[facility] has confirmed receipt of a request for visit. This document confirms receipt of the order initiating the consult. To find the results of the consultation, please view the patient's reports for the scanned Telemed Consult.
[2022-09-02] MEDS: SEVELAMER CARBONATE 800 MG TABLET PO ×3 (09:06→17:56)
[2022-09-02] MEDS: Ergocalciferol 1.25 MG (50, 000 UNIT) Capsule PO (09:06)
--- NOTE | 2022-09-02 09:07 | PCM.CONS.R ---
Assessment & Plan Assessment/Plan (1) ESRD needing dialysis: (2) Intractable headache: (3) Hyperglycemia: (4) Hypertension: PLAN: Plan We were consulted for management of dialysis in ESRD patient. Patient was admitted for intractable headache, work-up is in progress. She had CT of brain in the emergency room which did not show any acute ischemic infarction, no intracranial hemorrhage no acute findings. Patient dialyzes at [facility] Wednesday schedule. Last dialyzed August 31. We will plan for dialysis today after MRI. Patient will dialyze over 4 hours 2K bath with fluid removal as patient/blood pressure tolerates. Patient's serum glucose was 542 yesterday, improved to 230 today. Patient has history of anemia of chronic disease, hemoglobin is 12 at goal. She does not need NOREEN at this time. Blood pressure was 190/80 in the ER but has improved. Continue current blood pressure medications (amlodipine 10 mg daily, bumetanide, carvedilol 6.25 mg twice daily, losartan 50 mg daily) and also expect improvement in blood pressure with fluid removal with dialysis. Further orders forthcoming as hospitalization evolves. Thank you for allowing us participate in the care of Mrs. Cherry. HPI Consult Data Date of Consult: 09/02/22 HPI Narrative HPI Narrative: XOCHITL CHERRY, is a 47 F with past medical history significant for ESRD on hemodialysis Wednesday at [facility] last dialyzed August 31, type 2 diabetes mellitus, hypertension, peripheral arterial disease status post partial left foot amputation, hyperlipidemia, ARIAN, history of migraines who presented emergency room with complaints of headache and photophobia. Patient denies any nausea, vomiting, diarrhea. Denies any chest pain or shortness of breath. Patient was admitted for intractable headache and for further work-up. Also in ER she was noted to have blood glucose more than 500 and blood pressure was elevated as well. We were consulted for dialysis management in ESRD patient. [facility] Medical History (Updated 09/01/22 @ 12:10 by Brendan Cali MD) Anxiety Asthma Fleming esophagus Blackout delivery delivered Chronic kidney disease Depression Dietary restriction Disc disorder FH: cholecystectomy Former smoker Gastric reflux High cholesterol History of CHF (congestive heart failure) History of Clostridium difficile infection History of edema History of ulceration Hypertension Insulin dependent diabetes mellitus Left foot amputee (~2019) Low iron Migraine headache On home oxygen therapy Seasonal allergies Sleep apnea Thyroid disease Uses wheelchair Vision impairment Walker as ambulation aid Wears glasses Home Medications aspirin 81 mg tablet,delayed release 81 mg PO DAILY HEART HEALTH 06/23/22 [History Last Taken 08/31/22] atorvastatin 20 mg tablet 20 mg PO QHS CHOLESTEROL 06/23/22 [History Last Taken 08/31/22] bumetanide 1 mg tablet 1 mg PO DAILY FLUID 06/23/22 [History Last Taken Unknown] cetirizine 10 mg tablet 10 mg PO DAILY ALLERGIES 06/23/22 [History Last Taken 08/31/22] dicyclomine 10 mg capsule 10 mg PO BID STOMACH 06/23/22 [History Last Taken 08/31/22] insulin aspart U-100 100 unit/mL (3 mL) subcutaneous pen (Novolog Flexpen U-100 Insulin aspart) 6 - 10 unit subcut TID DIABETES 06/23/22 [History Last Taken 08/31/22] insulin detemir U-100 100 unit/mL (3 mL) subcutaneous pen (Levemir FlexTouch U-100 Insulin) 17 unit subcut QHS DIABETES 06/23/22 [History Last Taken 08/31/22] lamotrigine 50 mg disintegrating tablet 50 mg PO DAILY MOOD 06/23/22 [History Last Taken 08/31/22] losartan 50 mg tablet 50 mg PO DAILY BLOOD PRESSURE 06/23/22 [History Last Taken 08/31/22] pantoprazole 40 mg tablet,delayed release 40 mg PO DAILY ACID REFLUX 06/23/22 [History Last Taken 08/31/22] tamsulosin 0.4 mg capsule 0.4 mg PO DAILY BLADDER 06/23/22 [History Last Taken Unknown] oxycodone-acetaminophen 5 mg-325 mg tablet (Percocet) 1 tab PO Q8H PRN pain 5 days #14 tabs 07/07/22 [Rx Last Taken 08/31/22] sucroferric oxyhydroxide 500 mg chewable tablet (Velphoro) 500 mg PO TIDCM kidney 08/19/22 [History Last Taken 08/31/22] carvedilol 6.25 mg tablet 6.25 mg PO BIDCM 30 days #60 tabs 08/21/22 [Rx Last Taken Unknown] ibuprofen 400 mg tablet 400 mg PO Q6H PRN headache #20 tabs 08/21/22 [Rx Last Taken 08/31/22] amlodipine 10 mg tablet 10 mg PO DAILY BLOOD PRESSURE 09/01/22 [History Last Taken Unknown] ergocalciferol (vitamin D2) 1,250 mcg (50,000 unit) capsule 1,250 mcg PO MOWEFR SUPPLEMENT 09/01/22 [History Last Taken Unknown] ferrous sulfate 325 mg (65 mg iron) tablet (FeroSul) 325 mg PO MOWEFR SUPPLEMENT 09/01/22 [History Last Taken Unknown] gabapentin 100 mg capsule 100 mg PO TID NERVE PAIN 09/01/22 [History Last Taken Unknown] promethazine 25 mg tablet 25 mg PO Q6H PRN NAUSEA/VOMITING 09/01/22 [History Last Taken Unknown] rizatriptan 10 mg disintegrating tablet 10 mg PO UD PRN Headache 09/01/22 [History Last Taken 3 Days Ago ~08/29/22] sennosides 8.6 mg-docusate sodium 50 mg tablet (Senexon-S) 1 - 2 tab PO DAILY CONSTIPATION 09/01/22 [History Last Taken 08/31/22] vitamin B complex-vitamin C-folic acid 0.8 mg tablet (Nephro-Chris) 1 tab PO DAILY SUPPLEMENT 09/01/22 [History Last Taken Unknown] Allergy/AdvReac Type Severity Reaction Status Date / Time lidocaine Allergy Severe Rash Verified 08/18/22 17:09 bacitracin Allergy Intermediate blisters Verified 08/18/22 17:09 hydrogen peroxide Allergy Intermediate blisters Verified 08/18/22 17:09 isopropyl alcohol Allergy Intermediate blisters Verified 08/18/22 17:09 Sulfa (Sulfonamide Allergy Intermediate Rash Verified 08/18/22 17:09 Antibiotics) Bleach (Sodium Hypochlorite) Allergy Hives Verified 08/18/22 17:09 insulin lispro Allergy Other Verified 08/19/22 05:46 [From Humalog U-100 Insulin] Latex, Natural Rubber Allergy Rash Verified 08/18/22 17:09 metformin AdvReac Vomiting Verified 08/18/22 17:09 neomycin AdvReac NEEDS Verified 08/18/22 17:09 [From Neosporin FOLLOW-UP ([id number])] polymyxin B AdvReac NEEDS Verified 08/18/22 17:09 [From Neosporin FOLLOW-UP ([id number])] Family History Other Arthritis Asthma CVA (cerebral vascular accident) Diabetes Heart disease High cholesterol Hypertension Kidney disease Osteoporosis Seizures Surgical History H/O left knee surgery H/O right knee surgery History of arteriovenostomy for renal dialysis History of bladder surgery History of History of cholecystectomy History of foot surgery History of liver biopsy History of lumpectomy of right breast History of shoulder surgery History of thoracentesis Hx of tonsillectomy Social History (Updated 09/01/22 @ 11:55 by Mellisa Paiz) household members: family housing: house Smoking Status: Former smoker alcohol intake: never Physical Exam Narrative Const: Alert and oriented x3. No apparent distress Cardio: S1, S2, RRR Respiratory: Lung sounds clear anteriorly and posteriorly. No wheezes, rhonchi or rales noted GI: Abdomen soft, nontender, positive bowel sounds Extremities: Trace nonpitting edema noted bilateral lower legs. AV fistula left upper arm positive thrill and bruit Lab / Micro Data Result Diagrams: 09/02/22 05:25 09/02/22 04:58 Labs: Laboratory Results - last 24 hr 09/01/22 10:48: Acetone Level NEGATIVE 09/01/22 11:04: POC Glucose > 500 H* 09/01/22 16:27: POC Glucose 422 H 09/01/22 22:14: POC Glucose 343 H 09/02/22 04:58: Sodium 135 L, Potassium 4.4, Chloride 104, Carbon Dioxide 25.0, Anion Gap 6, BUN 23 H, Creatinine 3.89 H, Estim Creat Clear Calc 17.57, Est GFR (MDRD) Af Amer 16 L, Est GFR (MDRD) Non-Af 13 L, BUN/Creatinine Ratio 5.9 L, Glucose 231 H, Calcium 8.7 09/02/22 05:25: WBC 6.9, RBC 3.87 L, Hgb 12.0, Hct 35.6 L, MCV 92.0, MCH 31.0, MCHC 33.7, RDW Std Deviation 46.8 H, RDW Coeff of Juan 14.4, Plt Count 255, MPV 9.5, Immature Gran % (Auto) 0.400, Neut % (Auto) 44.4 L, Lymph % (Auto) 44.8 H, [place] % (Auto) 6.2, Eos % (Auto) 3.3, Baso % (Auto) 0.9, Absolute Neuts (auto) 3.1, Absolute Lymphs (auto) 3.09, Nucleated RBC % 0 09/02/22 06:46: POC Glucose 202 H Radiology Impression Brain CT 09/01/22 07:16 IMPRESSION: Normal unenhanced CT scan of the brain. Electronically Signed: Vaughn Alves MD at 9:25 EST , Brain MRI 09/01/22 13:44 IMPRESSION: Findings suspicious for right occipital infarct. Findings on T2-weighted imaging are somewhat atypical, and contrast-enhanced sequences may be helpful to exclude underlying lesion. Electronically Signed: Bernadette Franklin MD at 17:16 EST Reading Location ID and State: [id number] / Tel , Service support ,
[2022-09-02] MEDS: LORazepam 1 MG Tablet PO (09:13)
[2022-09-02] MEDS: 0.9% Saline Lock 10 ML Syringe IV (09:37)
--- NOTE | 2022-09-02 11:53 | PN.HOSP_ITS ---
Subjective Subjective Patient seen and examined. SHe still complains of headache. She now complains of loss of peripheral vision in her left eye.Review of systems is otherwise negative. Objective Data Objective Data Vital Signs: Vital Signs Temp Pulse Resp BP Pulse Ox O2 Del Method 97.5 F L 64 18 155/83 H 99 Room Air 09/02/22 08:58 09/02/22 08:58 09/02/22 08:58 09/02/22 08:58 09/02/22 08:58 09/02/22 08:58 Oxygen Delivery Method Room Air Weight: 286 lb 9.615 oz Body Mass Index (BMI) 44.9 Intake & Output: Intake and Output for Last 24 Hours 08/31/22 09/01/22 09/02/22 23:59 23:59 23:59 Intake Total 240 / 290 2049 Output Total 0 / 0 Balance 240 / 290 2049 Lab / Micro Data Result Diagrams: 09/02/22 05:25 09/02/22 04:58 Labs: Laboratory Results - last 24 hr 09/01/22 11:04: POC Glucose > 500 H* 09/01/22 16:27: POC Glucose 422 H 09/01/22 22:14: POC Glucose 343 H 09/02/22 04:58: Sodium 135 L, Potassium 4.4, Chloride 104, Carbon Dioxide 25.0, Anion Gap 6, BUN 23 H, Creatinine 3.89 H, Estim Creat Clear Calc 17.57, Est GFR (MDRD) Af Amer 16 L, Est GFR (MDRD) Non-Af 13 L, BUN/Creatinine Ratio 5.9 L, Glucose 231 H, Calcium 8.7 09/02/22 05:25: WBC 6.9, RBC 3.87 L, Hgb 12.0, Hct 35.6 L, MCV 92.0, MCH 31.0, MCHC 33.7, RDW Std Deviation 46.8 H, RDW Coeff of Juan 14.4, Plt Count 255, MPV 9.5, Immature Gran % (Auto) 0.400, Neut % (Auto) 44.4 L, Lymph % (Auto) 44.8 H, [place] % (Auto) 6.2, Eos % (Auto) 3.3, Baso % (Auto) 0.9, Absolute Neuts (auto) 3.1, Absolute Lymphs (auto) 3.09, Nucleated RBC % 0 09/02/22 06:46: POC Glucose 202 H Radiography Diagnostic Testing: Radiology Impression Brain MRI 09/01/22 13:44 IMPRESSION: Findings suspicious for right occipital infarct. Findings on T2-weighted imaging are somewhat atypical, and contrast-enhanced sequences may be helpful to exclude underlying lesion. Electronically Signed: Bernadette Franklin MD at 17:16 EST , Brain MRI 09/02/22 07:54 IMPRESSION: Nonenhancing acute ischemic infarct in the cuneus of the right occipital lobe. Electronically Signed: Brendan Whaley MD at 10:19 EST , Physical Exam Narrative had a towel over her eyes due to headache Const alert and oriented x3 Constitutional Narrative: in mild distress due to headache HEENT normocephalic, head/scalp atraumatic, hearing grossly normal bilaterally and moist oral mucous membranes Head and Scalp: normocephalic Mouth: oral and palatal mucosa normal Eyes PERRL, EOMs intact bilaterally and conjunctivae normal Neck no lymphadenopathy and supple Resp normal respiratory effort, no retractions, no use of accessory muscles and clear to auscultation bilaterally Cardio regular rate, regular rhythm, S1 normal heart sound, S2 normal heart sound and no murmurs GI normal to inspection, nondistended, normoactive bowel sounds, soft to palpation and non-tender Extremity normal to inspection, full ROM and no clubbing, cyanosis or edema Neuro oriented x3, CN's II-XII intact bilaterally, moves all extremities and no focal motor deficits Sensorium / Orientation: awake and alert Speech: speech normal Motor Exam: strength 5/5 throughout Psych Psych Narrative: flat affect Assessment & Plan Assessment/Plan (1) Intractable headache: (2) Hyperglycemia: PLAN: Plan #Intractable headache * was admitted 2 weeks ago and managed for migraine headache. Headache has still persisted. * says it is very severe now. CT brain showed no evidence of acute intracranial pathology * MRI of brain without contrast showed findings suspicious for right occipital i nfarct, with findings on T2 weighted imaging somewhat atypical, nad contrast enhanced sequences may be helpful to exclude underlying lesions * MRI of brain with contrast showed nonenhancing acute ischemic infarct int he cuneus of the right occipital lobe * already on aspirin; will increase statin to high intensity statin and add on plavix * get 2D echo * continue rizatriptana nd tylenol * consult neurology * PT/OT consult. 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 blood sugar down to 202 this morning. * on ISS with novolog * on lantus 17 units qhs * check A1C * on metoclorpromide for gastroparesis and gabapentin for neuropathy * * #Hypertension: * Was elevated on admission. This likely due to severe headache. On car vedilol and losartan. Hold BP meds for permissive hypertension #Hyperlipidemia: On statin #ESRD: On dialysis Wednesdays and Fridays. Consult nephrology. #GERD: On PPI DVT prophylaxis: lovenox, renally dosed Code status: full code Charges/Coding Visit Charges Inpatient E&M: 43240 Subs Hosp L2
--- NOTE | 2022-09-02 12:09 | ECHOD_ITS ---
Reason For Study: TIA/CVA Procedure This was a 2D Doppler, Color Flow transthoracic echocardiogram. Exam performed portable in patient room. Left Ventricle Normal LV size. Moderate concentric left ventricular hypertrophy. Left ventricular systolic function is normal. The estimated ejection fraction is 60 %. No regional wall motion abnormalities noted. Right Ventricle Normal RV size. Normal systolic function. Atria The left atrium is mildly enlarged. Normal right atrium. Bubble contrast study negative for right to left interatrial shunt. Mitral Valve Normal mitral valve. Tricuspid Valve Normal tricuspid valve. Aortic Valve Trisinus/trileaflet aortic valve. Pulmonic Valve Normal pulmonic valve. Great Vessels Normal aortic root. The pulmonary artery is normal size. Normal inferior vena cava. Pericardium/Pleural No pericardial effusion. Medication Performed a rapid injection of agitated mix of 9 cc saline and 1cc air to assess for atrial septal defect. MMode/2D Measurements & Calculations LVIDd: 4.9 cm IVSd: 1.4 cm Ao root diam: 3.2 cm LVIDs: 2.6 cm LVPWd: 1.3 cm FS: 46.1 % LAV(MOD-sp4): 64.4 ml LVAd ap4: 33.0 cm2 SV(MOD-sp4): 65.7 ml LVLd ap4: 8.6 cm EDV(MOD-sp4): 102.0 ml EDV(sp4-el): 107.4 ml LVAs ap4: 17.7 cm2 LVLs ap4: 7.6 cm ESV(MOD-sp4): 36.3 ml ESV(sp4-el): 35.0 ml EF(MOD-sp4): 64.4 % EF(sp4-el): 67.5 % SV(sp4-el): 72.4 ml LA A4 area: 22.5 cm2 LA dimension(2D): 3.8 cm RA A4 area: 16.4 cm2 Time Measurements MV dec time: 0.34 sec Doppler Measurements & Calculations MV E max rubén: 85.5 cm/sec Lat Peak E' Rubén: 6.7 cm/sec Med Peak E' Rubén: 5.6 cm/sec MV A max rubén: 115.5 cm/sec E/E' lat: 12.7 E/E' med: 15.3 MV E/A: 0.74 MV V2 max: 120.1 cm/sec MV dec slope: 256.0 cm/sec2 Ao V2 max: 147.6 cm/sec MV max P.8 mmHg Ao max P.7 mmHg MV V2 mean: 75.6 cm/sec Ao V2 mean: 105.0 cm/sec MV mean P.5 mmHg Ao mean P.0 mmHg MV V2 VTI: 40.3 cm Ao V2 VTI: 34.8 cm AV (velocity ratio): 0.85 LV V1 max: 127.9 cm/sec PA V2 max: 120.1 cm/sec LV V1 max P.6 mmHg PA V2 mean: 86.4 cm/sec LV V1 mean P.0 mmHg LV V1 mean: 93.8 cm/sec LV V1 VTI: 29.4 cm ECHO/Echo Complete Interpretation Summary Normal LV size. Left ventricular systolic function is normal. The estimated ejection fraction is 60 %. Moderate concentric left ventricular hypertrophy. Bubble contrast study negative for right to left interatrial shunt. Ordering Physician: Selam Francisco Referring Physician: JONATHAN HILL Performed By: Kaur Alexander RCS
[2022-09-02] MEDS: Ferrous Sulfate 325 MG Tablet PO (12:30)
[2022-09-02 13:30] LABS: Bedside Glucose 209 mg/dL (74-106)
[2022-09-02 13:31] LABS: Hemoglobin A1c 12.5 % (3.8-5.6)
--- NOTE | 2022-09-02 13:58 | WOUNDNOTE ---
wound photo: left lateral foot
[2022-09-02] MEDS: Folic Acid/Vitamin B Comp W-C 1 Capsule 1 CAP PO (14:33)
[2022-09-02] MEDS: Clopidogrel Bisulfate 75 MG Tablet PO (14:34)
[2022-09-02] MEDS: Tamsulosin HCl 0.4 MG Capsule PO (17:56)
[2022-09-02 19:06] LABS: Bedside Glucose 377 mg/dL (74-106)
[2022-09-02] MEDS: traMADol 50 MG Tablet PO (19:37)
[2022-09-02] MEDS: Ibuprofen 400 MG Tablet PO (21:03)
[2022-09-02] MEDS: Insulin Glargine-YFGN 100 UNIT/ML Pen 17 UNIT SC (21:04)
[2022-09-02] MEDS: Atorvastatin Calcium 40 MG Tablet PO (21:05)
[2022-09-02 22:45] LABS: Bedside Glucose 401 mg/dL (74-106)
[2022-09-03] VITALS (12 sets, daily range): BP systolic 103–152; BP diastolic 56–86; PULSE 56–78; RESP 14–18; TEMP 36.4–36.6; O2SAT 95–100; BMI 44.9
--- NOTE | 2022-09-03 01:05 | NURSING ---
pt reports hx of sleep apnea, and states she's suppose to wear oxygen at night d/t desatting at times during sleep. Pt is placed on 2L o2 and she is satting 99-100%.
[2022-09-03] MEDS: Ibuprofen 400 MG Tablet PO ×3 (05:02→21:34)
[2022-09-03] MEDS: Gabapentin 100 MG Capsule PO ×3 (05:02→21:35)
[2022-09-03] MEDS: Dicyclomine 10 MG Capsule PO ×2 (05:03→16:23)
[2022-09-03 06:49] LABS: Absolute Lymphocyte Count 2.63 X10^3/uL (0.83-4.51); Absolute Neutrophil Count 3.2 X10^3/uL (2.0-7.7); Basophil# 0.04 X10^3/uL; Basophil% 0.6 % (0-1); Eosinophil# 0.23 X10^3/uL; Eosinophils% 3.5 % (0-5); Hematocrit 35.1 % (37-47); Hemoglobin 11.5 g/dL (12.0-15.0); Lymphocyte # 2.63 X10^3/ul (0.83-4.51); Lymphocyte % 40.5 % (19-41); Mean Corp Hgb Conc 32.8 g/dL (32-36); Mean Corpuscular Hgb 31.3 pg (27.0-32.0); Mean Corpuscular Volume 95.4 fL (81-99); Mean Platelet Vol. 9.2 fl (6.2-12.0); Monocyte# 0.42 X10^3/uL; Monocyte% 6.5 % (0-10); NRBC Flagged by Analyzer 0 % (0-5); Neutrophil # 3.15 X10^3/uL (2.7-7.7); Neutrophil % 48.4 % (47-70); Platelet Count 243 K/mm3 (150-450); RBC Distribution Width CV 14.5 % (11.6-14.6); RBC Distribution Width SD 49.5 fl (35.1-43.9); Red Blood Count 3.68 M/mm3 (4.2-5.4); White Blood Count 6.5 K/mm3 (4.4-11.0)
[2022-09-03 07:12] LABS: Anion Gap 8 (5-15); BUN 40 mg/dL (7-18); BUN/Creat Ratio 8.8 RATIO (10-20); Calcium,Total 8.4 mg/dL (8.5-10.1); Chloride 102 mmol/L (98-107); Cholesterol 142 mg/dL (200); Creatinine, Serum 4.52 mg/dL (0.55-1.02); EST Glomerular Filtration Rate 11 mL/min (>60); Est Glom Filt Rate - Afr Amer 13 mL/min (>60); Estimated Creatinine Clearance 15.12 ml/min; Glucose 246 mg/dL (74-106); High Density Lipoprotein 63 mg/dL; Potassium 4.3 mmol/L (3.5-5.1); Sodium Level 134 mmol/L (136-145); Triglycerides 100 mg/dL; Very Low Density Lipoprotein 20 mg/dL (5-40)
[2022-09-03 07:15] LABS: Bedside Glucose 204 mg/dL (74-106)
--- NOTE | 2022-09-03 12:00 | PN.HOSP_ITS ---
Subjective Subjective Patient seen and examined. She still complains of headache. She denies any blurred vision, chest pain, palpitations, dizziness, nausea, vomiting or diarrhea. REview of systems is otherwise negative. Objective Data Objective Data Vital Signs: Vital Signs Temp Pulse Resp BP Pulse Ox O2 Del Method O2 Flow Rate 97.9 F 58 L 16 152/86 H 98 Room Air 2 09/03/22 08:45 09/03/22 08:45 09/03/22 08:45 09/03/22 08:45 09/03/22 08:45 09/03/22 08:45 09/03/22 07:03 Oxygen Flow Rate (L/min) 2 Oxygen Delivery Method Room Air Weight: 286 lb 9.615 oz Body Mass Index (BMI) 44.9 Intake & Output: Intake and Output for Last 24 Hours 09/01/22 09/02/22 09/03/22 23:59 23:59 23:59 Intake Total 240 / 290 2650 / 2650 Output Total 300 / 300 Balance 240 / 290 2350 / 2350 Lab / Micro Data Result Diagrams: 09/03/22 06:10 09/03/22 06:10 Labs: Laboratory Results - last 24 hr 09/02/22 05:25: Hemoglobin A1c 12.5 H 09/02/22 12:26: POC Glucose 209 H 09/02/22 17:16: POC Glucose 377 H 09/02/22 20:58: POC Glucose 401 H 09/03/22 06:10: WBC 6.5, RBC 3.68 L, Hgb 11.5 L, Hct 35.1 L, MCV 95.4, MCH 31.3, MCHC 32.8, RDW Std Deviation 49.5 H, RDW Coeff of Juan 14.5, Plt Count 243, MPV 9.2, Immature Gran % (Auto) 0.500, Neut % (Auto) 48.4, Lymph % (Auto) 40.5, [place] % (Auto) 6.5, Eos % (Auto) 3.5, Baso % (Auto) 0.6, Absolute Neuts (auto) 3.2, Absolute Lymphs (auto) 2.63, Nucleated RBC % 0 09/03/22 06:10: Sodium 134 L, Potassium 4.3, Chloride 102, Carbon Dioxide 24.0, Anion Gap 8, BUN 40 H, Creatinine 4.52 H, Estim Creat Clear Calc 15.12, Est GFR (MDRD) Af Amer 13 L, Est GFR (MDRD) Non-Af 11 L, BUN/Creatinine Ratio 8.8 L, Glucose 246 H, Calcium 8.4 L, Triglycerides 100, Cholesterol 142, LDL Cholesterol 59, VLDL Cholesterol 20, HDL Cholesterol 63 09/03/22 06:38: POC Glucose 204 H Radiography Diagnostic Testing: Radiology Impression Carotid Duplex 09/02/22 00:00 Interpretation Summary Intimal thickening of the proximal right internal carotid artery with less than 50% stenosis Less than 50% stenosis right external carotid artery Intimal thickening of the proximal left internal carotid artery with less than 50% stenosis Less than 50% stenosis left external carotid artery Patent and antegrade vertebral arteries bilaterally Ordering Physician: Selam Francisco Referring Physician: Maddy Betancourt Performed By: Nita Goodwin RVT Echocardiogram 09/02/22 12:09 Interpretation Summary Normal LV size. Left ventricular systolic function is normal. The estimated ejection fraction is 60 %. Moderate concentric left ventricular hypertrophy. Bubble contrast study negative for right to left interatrial shunt. Ordering Physician: Selam Francisco Referring Physician: MADDY HILL Performed By: Kaur Alexander RCS Physical Exam Const alert and oriented x3 Constitutional Narrative: in mild distress due to headache HEENT normocephalic, head/scalp atraumatic, hearing grossly normal bilaterally and moist oral mucous membranes Head and Scalp: normocephalic Mouth: oral and palatal mucosa normal Eyes PERRL, EOMs intact bilaterally and conjunctivae normal Neck no lymphadenopathy and supple Resp normal respiratory effort, no retractions, no use of accessory muscles and clear to auscultation bilaterally Cardio regular rate, regular rhythm, S1 normal heart sound, S2 normal heart sound and no murmurs GI normal to inspection, nondistended, normoactive bowel sounds, soft to palpation and non-tender Extremity normal to inspection, full ROM and no clubbing, cyanosis or edema Neuro oriented x3, CN's II-XII intact bilaterally, moves all extremities and no focal motor deficits Sensorium / Orientation: awake and alert Speech: speech normal Motor Exam: strength 5/5 throughout Assessment & Plan Assessment/Plan (1) Intractable headache: (2) Hyperglycemia: PLAN: Plan #Intractable headache * was admitted 2 weeks ago and managed for migraine headache. Headache has still persisted. * says it is very severe now. CT brain showed no evidence of acute intracranial pathology * MRI of brain without contrast showed findings suspicious for right occipital infarct, with findings on T2 weighted imaging somewhat atypical, nad contrast enhanced sequences may be helpful to exclude underlying lesions * MRI of brain with contrast showed nonenhancing acute ischemic infarct int he cuneus of the right occipital lobe * already on aspirin; will increase statin to high intensity statin and add on plavix * 2D echo showed EF of 60% with moderate concentric LVH and normal LVSF with no regional wall motion abnormalities. * neurology reviewed patient and is worried about cerebral venous thrombosis. Recommendation is to dc rizatriptan and place on tramadol for headache * MRA head and neck and MRV head ordered. * PT/OT on board. 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 blood sugar down to 202 this morning. * on ISS with novolog * on lantus 17 units qhs * check A1C * on metoclorpromide for gastroparesis and gabapentin for neuropathy * * #Hypertension: * resume BP meds today- amlodipine, carvedilol and losartan * IV hydralazine prn * #Hyperlipidemia: On statin #ESRD: * On dialysis Wednesdays and Fridays. * Nephrology on board. * Didn't have dialysis yesterday, and due to have it today and tomorrow #GERD: On PPI DVT prophylaxis: lovenox, renally dosed Code status: full code Charges/Coding Visit Charges Inpatient E&M: 10470 Subs Hosp L2
--- NOTE | 2022-09-03 12:31 | DIALYSIS ---
Hemodialysis today UF -3400mL removed. Pt stable and tolerated tx. Report to BEATRICE Woodward
[2022-09-03] MEDS: Carvedilol 6.25 MG Tablet PO ×2 (12:36→16:24)
[2022-09-03] MEDS: Aspirin E.C. 81 MG Tablet PO (12:36)
[2022-09-03] MEDS: lamoTRIgine 25 MG Tablet 50 MG PO (12:37)
[2022-09-03] MEDS: Losartan Potassium 50 MG Tablet PO (12:37)
[2022-09-03] MEDS: Bumetanide 0.5 MG Tablet 1 MG PO (12:37)
[2022-09-03] MEDS: Senna/Docusate Sodium 1 Tablet PO (12:38)
[2022-09-03] MEDS: Folic Acid/Vitamin B Comp W-C 1 Capsule 1 CAP PO (12:38)
[2022-09-03] MEDS: Enoxaparin 30 MG/0.3 ML Syringe SC (12:38)
[2022-09-03] MEDS: amLODIPine 10 MG Tablet PO (12:38)
[2022-09-03] MEDS: Clopidogrel Bisulfate 75 MG Tablet PO (12:38)
[2022-09-03] MEDS: SEVELAMER CARBONATE 800 MG TABLET PO ×2 (12:38→16:24)
[2022-09-03] MEDS: Pantoprazole Sodium 40 MG Tablet PO (12:38)
[2022-09-03 12:40] LABS: Bedside Glucose 139 mg/dL (74-106)
--- NOTE | 2022-09-03 13:49 | PCM.PN.REN ---
Subjective Subjective Resting quietly in bed. Had dialysis today. Denies any cramping during HD. Objective Data Objective Data Vital Signs: Vital Signs Temp Pulse Resp BP Pulse Ox O2 Del Method O2 Flow Rate 97.9 F 58 L 16 152/86 H 98 Room Air 2 09/03/22 08:45 09/03/22 08:45 09/03/22 08:45 09/03/22 08:45 09/03/22 08:45 09/03/22 08:45 09/03/22 07:03 Oxygen Flow Rate (L/min) 2 Oxygen Delivery Method Room Air Weight: 130 kg Body Mass Index (BMI) 44.9 Intake & Output: Intake and Output for Last 24 Hours 09/01/22 09/02/22 09/03/22 23:59 23:59 23:59 Intake Total 240 / 290 2650 / 2650 Output Total 300 / 300 300 / 300 Balance 240 / 290 2350 / 2350 -300 / -300 Lab / Micro Data Result Diagrams: 09/03/22 06:10 09/03/22 06:10 Labs: Laboratory Results - last 24 hr 09/02/22 17:16: POC Glucose 377 H 09/02/22 20:58: POC Glucose 401 H 09/03/22 06:10: WBC 6.5, RBC 3.68 L, Hgb 11.5 L, Hct 35.1 L, MCV 95.4, MCH 31.3, MCHC 32.8, RDW Std Deviation 49.5 H, RDW Coeff of Juan 14.5, Plt Count 243, MPV 9.2, Immature Gran % (Auto) 0.500, Neut % (Auto) 48.4, Lymph % (Auto) 40.5, [place] % (Auto) 6.5, Eos % (Auto) 3.5, Baso % (Auto) 0.6, Absolute Neuts (auto) 3.2, Absolute Lymphs (auto) 2.63, Nucleated RBC % 0 09/03/22 06:10: Sodium 134 L, Potassium 4.3, Chloride 102, Carbon Dioxide 24.0, Anion Gap 8, BUN 40 H, Creatinine 4.52 H, Estim Creat Clear Calc 15.12, Est GFR (MDRD) Af Amer 13 L, Est GFR (MDRD) Non-Af 11 L, BUN/Creatinine Ratio 8.8 L, Glucose 246 H, Calcium 8.4 L, Triglycerides 100, Cholesterol 142, LDL Cholesterol 59, VLDL Cholesterol 20, HDL Cholesterol 63 09/03/22 06:38: POC Glucose 204 H 09/03/22 12:20: POC Glucose 139 H Radiography Diagnostic Testing: Radiology Impression Carotid Duplex 09/02/22 00:00 Interpretation Summary Intimal thickening of the proximal right internal carotid artery with less than 50% stenosis Less than 50% stenosis right external carotid artery Intimal thickening of the proximal left internal carotid artery with less than 50% stenosis Less than 50% stenosis left external carotid artery Patent and antegrade vertebral arteries bilaterally Ordering Physician: Selam Francisco Referring Physician: Maddy Betancourt Performed By: Nita Goodwin RVT Echocardiogram 09/02/22 12:09 Interpretation Summary Normal LV size. Left ventricular systolic function is normal. The estimated ejection fraction is 60 %. Moderate concentric left ventricular hypertrophy. Bubble contrast study negative for right to left interatrial shunt. Ordering Physician: Selam Francisco Referring Physician: MADDY HILL Performed By: Kaur Alexander RCS Physical Exam Narrative Const: Alert and oriented x3. No apparent distress Cardio: S1, S2, RRR Respiratory: Lung sounds clear anteriorly and posteriorly. No wheezes, rhonchi or rales noted GI: Abdomen soft, nontender, positive bowel sounds Extremities: No edema noted bilateral lower legs. AV fistula left upper arm positive thrill and bruit Assessment & Plan Assessment/Plan (1) ESRD needing dialysis: (2) Intractable headache: (3) Hyperglycemia: (4) Hypertension: PLAN: Plan - ESRD on HD MWF: HD today over 4 hours and tolerated ~3L UF. Next HD tomorrow over 4 hours with UF as pt/bp tolerates. - Intractable headache: MRI of brain without contrast showed findings suspicious for right occipital infarct, with findings on T2 weighted imaging somewhat atypical, and contrast enhanced sequences may be helpful to exclude underlying lesions. MRI of brain with contrast showed nonenhancing acute ischemic infarct in the cuneus of the right occipital lobe. Patient had CT of brain in the emergency room which did not show any acute ischemic infarction, no intracranial hemorrhage no acute findings. To have Echo and Carotids. To have MRA head/neck, MRV head - Anemia of chronic disease, hemoglobin is 11.5, at goal. She does not need NOREEN at this time. - HTN: Bps improved. Continue current blood pressure medications (amlodipine 10 mg daily, bumetanide, carvedilol 6.25 mg twice daily, losartan 50 mg daily)
--- NOTE | 2022-09-03 14:10 | CASEMGMT ---
Readmission chart review: 08/18-08/21/22 Hypertensive urgency 09/01/22-current Acute CVA, HTN, Headache Pt initially presented to [facility] ED on 08/18/22 for increasingly worse headache and hypertension, bilat hand numbness. Pt was admitted to PCU for hypertensive urgency and CT brain was neg, called acute migraine. See CM assessment done by Brittany Crane RN CM on 08/19/22. Pt active with [facility] and has OP HD MWF at [facility]. Blood pressure meds adjusted and pt discharged home with new script for Carvedilol and amlodipine. Pt did not qualify for increased home oxygen at discharge and ASH order was placed to [facility]. Pt returned to [facility] ED on 09/01/22 for headache, visual disturbance, and high blood pressure. Pt was admitted to PCU again and MRI showed: nonenhancing acute ischemic infarct in the cuneus of the right occipital lobe. Pt states she was told that she does not have Medicaid(although it is showing up as secondary on pt chart) and that she has not been able to afford the co-pays for her meds so has not had meds but states that the [employer] is supposed to be covering her meds for august and september. Pt states that they haven't been able to get her PCP to send all medications to [facility] pharmacy to get them covered. Call to [facility] and they did not receive any HTN meds, just some vitamins, tamulosin, rizatriptan, iron, and dicyclomine, but she does say there is a note in chart that [employer] will cover. CM to follow for therapy notes/recommendations and ASH [facility] order placed for now at this time. [facility] aware that pt will not be there for HD tomorrow. Per Ann Kincaid state pt's medicaid is still pending and is awaiting state approval. MAXWELL Dan at [facility] is updated on lack of meds and lack of Medicaid as she had been working on these with pt. If pt able to go home at discharge, [facility] will need to fax all her scripts for meds to [facility] so that [employer] can cover them. [facility] phone: [phone], option 2, CM to follow. Alden BARRON CM
[2022-09-03] MEDS: LORazepam 1 MG Tablet PO (14:32)
--- NOTE | 2022-09-03 15:00 | MRI_ITS ---
STUDY: MRA OF THE HEAD WITHOUT CONTRAST REASON FOR EXAM: Female, 47 years old. stroke TECHNIQUE: 3-D uwrg-ki-yuusdk (TOF) imaging was performed with MIPs. The study was performed unenhanced. COMPARISON: None. FINDINGS: Normal bilateral petrous carotid arteries. Normal right cavernous carotid artery with a normal supraclinoid bifurcation. Normal left cavernous carotid artery with a normal supraclinoid bifurcation. Normal right A1 segments of the anterior cerebral artery. Normal left A1 segments of the anterior cerebral artery. Anterior communicating artery not visualized consistent with normal variant.). Normal bilateral A2 segments of the anterior cerebral arteries. Normal right M1 and M2 segments of the middle cerebral arteries, with a normal M1 bifurcation. Normal left M1 and M2 segments of the middle cerebral arteries, with a normal M1 bifurcation. Posterior communicating arteries are not visualized consistent with normal variant. Normal bilateral vertebral arteries. Normal basilar artery with a normal basilar bifurcation. The visualized bilateral superior cerebellar (SCA) arteries are normal. Normal bilateral P1, P2 and visualized P3 segments of the posterior cerebral arteries. There is no demonstrated aneurysm of the [place]. There is no major vessel occlusion or hemodynamically significant stenosis. . MRI/MRA Head ONLY without Contrast IMPRESSION: Normal MRA of the head Electronically Signed: Bertram Antonio MD at 16:45 EST ,
--- NOTE | 2022-09-03 15:14 | MRI_ITS ---
STUDY: EXAMINATION - MRV BRAIN WITHOUT CONTRAST REASON FOR EXAM: Female, 47 years old. cerebral venous thrombosis -- evaluate for cerebral venous thrombosis TECHNIQUE: 3D phth-tv-uzcaje (TOF) imaging was performed in a stan MRI scanner. COMPARISON: None. FINDINGS: Normal flow within the superior sagittal sinus. Normal flow within the superficial cortical veins. Normal flow within the paired internal cerebral veins, vein of Sina and straight sinus. Normal flow within the bilateral transverse and sigmoid sinuses. Normal flow within the bilateral jugular bulbs. MRI/MRV Head Without Contrast IMPRESSION: Normal unenhanced MRV of the brain. Electronically Signed: Meek Downs MD at 17:31 EST ,
--- NOTE | 2022-09-03 15:25 | MRI_ITS ---
STUDY: MRA NECK WITHOUT CONTRAST REASON FOR EXAM: Female, 47 years old. cerebral venous thrombosis TECHNIQUE: Source images were obtained, MIPs were performed. The study was performed unenhanced. COMPARISON: Carotid ultrasound September 02, 2022 FINDINGS: RIGHT CAROTID ARTERIES: Normal right common carotid artery (CCA). Normal right common carotid bulb. Normal origin of the right internal carotid (ICA) artery without a hemodynamically significant stenosis. Normal visualized cervical portion of the right internal carotid artery. Normal origin of the right external carotid artery (ECA). LEFT CAROTID ARTERIES: Normal left common carotid artery (CCA). Normal left common carotid bulb. Normal origin of the left internal carotid (ICA) artery without a hemodynamically significant stenosis. Normal visualized cervical portion of the left internal carotid artery. Normal origin of the left external carotid artery (ECA). VERTEBRAL ARTERIES: Normal antegrade flow within the bilateral vertebral artery without a hemodynamically significant stenosis. MRI/MRA Neck without Contrast IMPRESSION: Normal bilateral cervical carotid and vertebral arteries. Electronically Signed: Meek Downs MD at 17:36 EST ,
[2022-09-03] MEDS: traMADol 50 MG Tablet PO (16:22)
[2022-09-03] MEDS: Tamsulosin HCl 0.4 MG Capsule PO (16:25)
[2022-09-03 16:50] LABS: Bedside Glucose 282 mg/dL (74-106)
--- NOTE | 2022-09-03 19:56 | PN_ITS ---
Progress Note Nephrology attending addendum to TRANSIT COACH OPERATOR's note. Her evaluation and management plan reflects my independent medical decision making. I supervised the dialysis treatment today. The patient was dialyzed for 4 hours using F160 dialyzer. Blood flow was 400 mL/min. 3 L ultrafiltered. The patient tolerated dialysis well. MD Arnold Bass MD
[2022-09-03] MEDS: Atorvastatin Calcium 40 MG Tablet PO (21:33)
[2022-09-03] MEDS: Insulin Glargine-YFGN 100 UNIT/ML Pen 17 UNIT SC (21:35)
[2022-09-04] VITALS (10 sets, daily range): BP systolic 97–129; BP diastolic 55–71; PULSE 59–72; RESP 18; TEMP 36.6–37.3; O2SAT 94–99; BMI 44.9
[2022-09-04 00:10] LABS: Bedside Glucose 389 mg/dL (74-106)
[2022-09-04] MEDS: Ibuprofen 400 MG Tablet PO (04:08)
[2022-09-04] MEDS: Dicyclomine 10 MG Capsule PO ×2 (05:59→17:43)
[2022-09-04] MEDS: Gabapentin 100 MG Capsule PO ×3 (05:59→21:45)
[2022-09-04] MEDS: traMADol 50 MG Tablet PO ×2 (05:59→18:25)
[2022-09-04 07:05] LABS: Absolute Lymphocyte Count 1.71 X10^3/uL (0.83-4.51); Absolute Neutrophil Count 3.2 X10^3/uL (2.0-7.7); Basophil# 0.04 X10^3/uL; Basophil% 0.7 % (0-1); Eosinophil# 0.23 X10^3/uL; Eosinophils% 4.1 % (0-5); Hematocrit 36.4 % (37-47); Hemoglobin 11.8 g/dL (12.0-15.0); Lymphocyte # 1.71 X10^3/ul (0.83-4.51); Lymphocyte % 30.5 % (19-41); Mean Corp Hgb Conc 32.4 g/dL (32-36); Mean Corpuscular Hgb 31.1 pg (27.0-32.0); Mean Platelet Vol. 9.9 fl (6.2-12.0); Monocyte# 0.42 X10^3/uL; Monocyte% 7.5 % (0-10); NRBC Flagged by Analyzer 0 % (0-5); Neutrophil # 3.17 X10^3/uL (2.7-7.7); Neutrophil % 56.5 % (47-70); Platelet Count 232 K/mm3 (150-450); RBC Distribution Width CV 14.4 % (11.6-14.6); RBC Distribution Width SD 49.8 fl (35.1-43.9); Red Blood Count 3.79 M/mm3 (4.2-5.4); White Blood Count 5.6 K/mm3 (4.4-11.0)
[2022-09-04 07:15] LABS: Bedside Glucose 448 mg/dL (74-106)
[2022-09-04 07:52] LABS: Anion Gap 8 (5-15); BUN 30 mg/dL (7-18); BUN/Creat Ratio 6.8 RATIO (10-20); Calcium,Total 7.9 mg/dL (8.5-10.1); Chloride 97 mmol/L (98-107); Creatinine, Serum 4.39 mg/dL (0.55-1.02); EST Glomerular Filtration Rate 12 mL/min (>60); Est Glom Filt Rate - Afr Amer 14 mL/min (>60); Estimated Creatinine Clearance 15.57 ml/min; Glucose 530 mg/dL (74-106); Potassium 4.8 mmol/L (3.5-5.1); Sodium Level 130 mmol/L (136-145)
[2022-09-04] MEDS: 0.9% Saline Lock 10 ML Syringe IV (08:33)
--- NOTE | 2022-09-04 09:33 | CASEMGMT ---
BEATRICE ESCALANTE NOTE: ASH referral was sent via [facility] yesterday to [facility] w/response that they are unable to accept d/t staffing. RN BORIS placed call to [facility] at this time and spoke w/Zara. She states they are able to accept pt back for ASH and states she will send message to have this updated in [facility]. Per Zara, pt is currently receiving SN and PT/OT. She also had order for an aide, but d/t staffing they are unable to provide an aide at this time. Green sheet placed on chart for [facility] and to have all scripts for all of pt's medications (prior and any new) faxed to [facility] @ discharge. Bentley SORIA RN CM
--- NOTE | 2022-09-04 10:54 | PCM.PN.REN ---
Subjective Subjective Following for ESRD. The patient seen during hemodialysis treatment. No new complaints. She still has some headache although overall improved. Objective Data Objective Data Vital Signs: Vital Signs Temp Pulse Resp BP Pulse Ox O2 Del Method O2 Flow Rate 98.3 F 63 18 129/59 H 99 Nasal Cannula 2 09/04/22 03:52 09/04/22 03:52 09/04/22 03:52 09/04/22 03:52 09/04/22 08:16 09/04/22 08:16 09/04/22 08:16 Oxygen Flow Rate (L/min) 2 Oxygen Delivery Method Nasal Cannula Weight: 130 kg Body Mass Index (BMI) 44.9 Intake & Output: Intake and Output for Last 24 Hours 09/02/22 09/03/22 09/04/22 23:59 23:59 23:59 Intake Total 2650 / 2650 450 / 450 Output Total 300 / 300 300 / 300 Balance 2350 / 2350 150 / 150 Lab / Micro Data Result Diagrams: 09/04/22 05:35 09/04/22 05:35 Labs: Laboratory Results - last 24 hr 09/03/22 12:20: POC Glucose 139 H 09/03/22 16:21: POC Glucose 282 H 09/03/22 21:30: POC Glucose 389 H 09/04/22 05:35: WBC 5.6, RBC 3.79 L, Hgb 11.8 L, Hct 36.4 L, MCV 96.0, MCH 31.1, MCHC 32.4, RDW Std Deviation 49.8 H, RDW Coeff of Juan 14.4, Plt Count 232, MPV 9.9, Immature Gran % (Auto) 0.700, Neut % (Auto) 56.5, Lymph % (Auto) 30.5, [place] % (Auto) 7.5, Eos % (Auto) 4.1, Baso % (Auto) 0.7, Absolute Neuts (auto) 3.2, Absolute Lymphs (auto) 1.71, Nucleated RBC % 0 09/04/22 05:35: Sodium 130 L, Potassium 4.8, Chloride 97 L, Carbon Dioxide 25.0, Anion Gap 8, BUN 30 H, Creatinine 4.39 H, Estim Creat Clear Calc 15.57, Est GFR (MDRD) Af Amer 14 L, Est GFR (MDRD) Non-Af 12 L, BUN/Creatinine Ratio 6.8 L, Glucose 530 H*, Calcium 7.9 L 09/04/22 06:28: POC Glucose 448 H Radiography Diagnostic Testing: Radiology Impression Head MRA 09/03/22 15:00 IMPRESSION: Normal MRA of the head Electronically Signed: Bertram Antonio MD at 16:45 EST , Brain MRI 09/03/22 15:14 IMPRESSION: Normal unenhanced MRV of the brain. Electronically Signed: Meek Downs MD at 17:31 EST , Neck MRA 09/03/22 15:25 IMPRESSION: Normal bilateral cervical carotid and vertebral arteries. Electronically Signed: Meek Downs MD at 17:36 EST , Physical Exam Narrative Const: Alert and oriented x3. No apparent distress Cardio: S1, S2, RRR Respiratory: Lung sounds clear anteriorly and posteriorly. No wheezes, rhonchi or rales noted GI: Abdomen soft, nontender, positive bowel sounds Extremities: No edema noted bilateral lower legs. AV fistula left upper arm positive thrill and bruit Assessment & Plan Assessment/Plan (1) ESRD needing dialysis: (2) Intractable headache: (3) Hyperglycemia: (4) Hypertension: PLAN: Plan - ESRD on HD MWF: HD today to get the patient back on her usual outpatient MWF schedule. The patient seen during hemodialysis. We are using F160 dialyzer, blood flow 400 mL/min, dialysate flow 800 mL/min. Ultrafilter to her usual dry weight. Next dialysis will be on 09/07/2022. - Intractable headache: MRI of brain without contrast showed findings suspicious for right occipital infarct, with findings on T2 weighted imaging somewhat atypical, and contrast enhanced sequences may be helpful to exclude underlying lesions. MRI of brain with contrast showed nonenhancing acute ischemic infarct in the cuneus of the right occipital lobe. Patient had CT of brain in the emergency room which did not show any acute ischemic infarction, no intracranial hemorrhage no acute findings. To have Echo and Carotids. To have MRA head/neck, MRV head. Overall management of headache as per primary team. - Anemia of chronic disease, hemoglobin is 11.8, at goal for ESRD patient. She does not need NOREEN at this time. - HTN: BP is controlled. Continue current blood pressure medications (amlodipine 10 mg daily, bumetanide, carvedilol 6.25 mg twice daily, losartan 50 mg daily).
[2022-09-04 11:55] LABS: Bedside Glucose 196 mg/dL (74-106)
--- NOTE | 2022-09-04 12:41 | DIALYSIS ---
Hemodisalysis tx completed x 4 hours without complications. Pt tolerated tx fair, fluid removed 2,000ml using crit-line, SBP ran 91-130. Verbal report given to BEATRICE Hartley post tx.
--- NOTE | 2022-09-04 13:40 | CASEMGMT ---
Therapy let SW know that patient would benefit from going somewhere for rehab. Therapy also recommended Inpatient Rehab Unit for patient. This SW and MAXWELL Napoles met with patient. Introduced self and role at [facility]. SW spoke with patient about Inpatient Rehab Unit and she was interested. Patient asked SW to call her cousin Any. SW called [facility] in Rehab Unit and left message with referral. SW also called Any and explained situation. Any was in agreement. SW asked if Inpatient Rehab is unable to take her which correction would she prefer. Any said they would prefer one of the facilities in [place]. SW will let her know. Lacey John DUTY ENGINEER MAYRA
--- NOTE | 2022-09-04 13:48 | CASEMGMT ---
MAXWELL received a call from [facility] in Rehab and they cannot take patient as she is on dialysis. MAXWELL forgot about this. MAXWELL will send referrals to [facility] and also notify patient and her cousin Any. Lacey NUNEZ
--- NOTE | 2022-09-04 14:34 | DS.PCM_ITS ---
Providers Date of Admission: 09/02/22 Primary Care Physician: Dr. Maddy Anaya MD Consultations 09/01/22 18:05 Consult: Nephrology Routine Consulting Provider: Albino Nicole Reason for Consult: HD pt EMERGENT Consult: No MD Notified: Yes Date Notified: 09/01/22 Time Notified: 18:05 Method of Notification: Verbal Comments:: Dr Francisco notified Dr Hudson. 09/02/22 08:43 Consult: Onc/Wound/rubber liner Routine Comment: Reason for Consult:: wound to l lateral foot nonhealing Reason For Visit: headache, HYPERGLYCEMIA Diagnosis Discharge Diagnosis (1) ESRD needing dialysis: Status: Chronic Code(s): N18.6 - End stage renal disease; Z99.2 - Dependence on renal dialysis (2) Intractable headache: Status: Acute Code(s): R51.9 - Headache, unspecified (3) Hyperglycemia: Status: Acute Code(s): R73.9 - Hyperglycemia, unspecified (4) Hypertension: Status: Chronic Code(s): I10 - Essential (primary) hypertension Plan #Intractable headache * was admitted 2 weeks ago and managed for migraine headache. Headache has still persisted. * says it is very severe now. CT brain showed no evidence of acute intracranial pathology * MRI of brain without contrast showed findings suspicious for right occipital infarct, with findings on T2 weighted imaging somewhat atypical, nad contrast enhanced sequences may be helpful to exclude underlying lesions * MRI of brain with contrast showed nonenhancing acute ischemic infarct int he cuneus of the right occipital lobe * already on aspirin; will increase statin to high intensity statin and add on plavix * 2D echo showed EF of 60% with moderate concentric LVH and normal LVSF with no regional wall motion abnormalities. * neurology reviewed patient and is worried about cerebral venous thrombosis. Recommendation is to dc rizatriptan and place on tramadol for headache * MRA head and neck and MRV head ordered. * PT/OT on board. 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 blood sugar down to 202 this morning. * on ISS with novolog * on lantus 17 units qhs * check A1C * on metoclorpromide for gastroparesis and gabapentin for neuropathy * * #Hypertension: * resume BP meds today- amlodipine, carvedilol and losartan * IV hydralazine prn * #Hyperlipidemia: On statin #ESRD: * On dialysis Wednesdays and Fridays. * Nephrology on board. * Didn't have dialysis yesterday, and due to have it today and tomorrow #GERD: On PPI DVT prophylaxis: lovenox, renally dosed Code status: full code Medications at Discharge Home Medications aspirin 81 mg tablet,delayed release 81 mg PO DAILY HEART HEALTH 06/23/22 bumetanide 1 mg tablet 1 mg PO DAILY FLUID 06/23/22 cetirizine 10 mg tablet 10 mg PO DAILY ALLERGIES 06/23/22 dicyclomine 10 mg capsule 10 mg PO BID STOMACH 06/23/22 insulin aspart U-100 100 unit/mL (3 mL) subcutaneous pen (Novolog Flexpen U-100 Insulin aspart) 6 - 10 unit subcut TID DIABETES 06/23/22 insulin detemir U-100 100 unit/mL (3 mL) subcutaneous pen (Levemir FlexTouch U- 100 Insulin) 17 unit subcut QHS DIABETES 06/23/22 lamotrigine 50 mg disintegrating tablet 50 mg PO DAILY MOOD 06/23/22 losartan 50 mg tablet 50 mg PO DAILY BLOOD PRESSURE 06/23/22 pantoprazole 40 mg tablet,delayed release 40 mg PO DAILY ACID REFLUX 06/23/22 tamsulosin 0.4 mg capsule 0.4 mg PO DAILY BLADDER 06/23/22 oxycodone-acetaminophen 5 mg-325 mg tablet (Percocet) 1 tab PO Q8H PRN pain 5 days #14 tabs 07/07/22 sucroferric oxyhydroxide 500 mg chewable tablet (Velphoro) 500 mg PO TIDCM kidney 08/19/22 carvedilol 6.25 mg tablet 6.25 mg PO BIDCM 30 days #60 tabs 08/21/22 amlodipine 10 mg tablet 10 mg PO DAILY BLOOD PRESSURE 09/01/22 ergocalciferol (vitamin D2) 1,250 mcg (50,000 unit) capsule 1,250 mcg PO MOWEFR SUPPLEMENT 09/01/22 ferrous sulfate 325 mg (65 mg iron) tablet (FeroSul) 325 mg PO MOWEFR SUPPLEMENT 09/01/22 gabapentin 100 mg capsule 100 mg PO TID NERVE PAIN 09/01/22 promethazine 25 mg tablet 25 mg PO Q6H PRN NAUSEA/VOMITING 09/01/22 sennosides 8.6 mg-docusate sodium 50 mg tablet (Senexon-S) 1 - 2 tab PO DAILY CONSTIPATION 09/01/22 vitamin B complex-vitamin C-folic acid 0.8 mg tablet (Nephro-Chris) 1 tab PO DAILY SUPPLEMENT 09/01/22 atorvastatin 40 mg tablet 40 mg PO QHS #30 tabs 09/04/22 clopidogrel 75 mg tablet 75 mg PO DAILY #21 tabs 09/04/22 Weight / BMI Weight Weight: 286 lb 9.615 oz Body Mass Index (BMI) 44.9 ABG / Lab / Microbiology Data Result Diagrams: 09/04/22 05:35 09/04/22 05:35 Laboratory: Laboratory Results - last 24 hr 09/03/22 16:21: POC Glucose 282 H 09/03/22 21:30: POC Glucose 389 H 09/04/22 05:35: WBC 5.6, RBC 3.79 L, Hgb 11.8 L, Hct 36.4 L, MCV 96.0, MCH 31.1, MCHC 32.4, RDW Std Deviation 49.8 H, RDW Coeff of Juan 14.4, Plt Count 232, MPV 9.9, Immature Gran % (Auto) 0.700, Neut % (Auto) 56.5, Lymph % (Auto) 30.5, [place] % (Auto) 7.5, Eos % (Auto) 4.1, Baso % (Auto) 0.7, Absolute Neuts (auto) 3.2, Absolute Lymphs (auto) 1.71, Nucleated RBC % 0 09/04/22 05:35: Sodium 130 L, Potassium 4.8, Chloride 97 L, Carbon Dioxide 25.0, Anion Gap 8, BUN 30 H, Creatinine 4.39 H, Estim Creat Clear Calc 15.57, Est GFR (MDRD) Af Amer 14 L, Est GFR (MDRD) Non-Af 12 L, BUN/Creatinine Ratio 6.8 L, Glucose 530 H*, Calcium 7.9 L 09/04/22 06:28: POC Glucose 448 H 09/04/22 11:20: POC Glucose 196 H Radiography Diagnostic Testing: Radiology Impression Head MRA 09/03/22 15:00 IMPRESSION: Normal MRA of the head Electronically Signed: Bertram Antonio MD at 16:45 EST , Brain MRI 09/03/22 15:14 IMPRESSION: Normal unenhanced MRV of the brain. Electronically Signed: Meek Downs MD at 17:31 EST , Neck MRA 09/03/22 15:25 IMPRESSION: Normal bilateral cervical carotid and vertebral arteries. Electronically Signed: Meek Downs MD at 17:36 EST , D/C Instructions Discharge Diet: Low fat / Low cholesterol Weight Bearing Status: Weight bearing as tolerated Call your doctor if you observe: Fever of 101 or Higher, Shortness of breath and Swelling in the ankles Discharge Plan Admission Admit Date/Time: 09/02/22 11:17 Primary Reason for Your Visit: acute CVA, intractable migraine headache Attending Provider: Selam Francisco Primary Care Provider: Maddy Anaya Consulting Providers: Albino Nicole Instructions Patient Instructions: Migraine Triggers, Risk Factors for Stroke, Migraine Headaches Discharge Orders/Prescriptions Prescriptions: New atorvastatin 40 mg Tablet 40 mg PO QHS Qty: 30 1RF clopidogrel 75 mg Tablet 75 mg PO DAILY Qty: 21 0RF Continued aspirin 81 mg tablet,delayed release (DR/EC) 81 mg PO DAILY cetirizine 10 mg tablet 10 mg PO DAILY dicyclomine 10 mg capsule 10 mg PO BID pantoprazole 40 mg tablet,delayed release (DR/EC) 40 mg PO DAILY lamotrigine 50 mg tablet,disintegrating 50 mg PO DAILY bumetanide 1 mg tablet 1 mg PO DAILY losartan 50 mg tablet 50 mg PO DAILY tamsulosin 0.4 mg capsule 0.4 mg PO DAILY insulin aspart U-100 [Novolog Flexpen U-100 Insulin] 100 unit/mL (3 mL) insulin pen 6 - 10 unit subcut TID Label Comments: 150-200 : 6U 200-250: 12u 250-300: 18 u anything over 300: call MD Frankel FlexTouch U-100 Insuln 100 unit/mL (3 mL) insulin pen 17 unit subcut QHS oxycodone-acetaminophen [Percocet] 5-325 mg tablet 1 tab PO Q8H PRN (Reason: pain) 5 Days Qty: 14 0RF Velphoro 500 mg tablet,chewable 500 mg PO TIDCM carvedilol 6.25 mg Tablet 6.25 mg PO BIDCM 30 Days Qty: 60 0RF sennosides-docusate sodium [Senexon-S] 8.6-50 mg tablet 1 - 2 tab PO DAILY Label Comments: TAKE 1-2 TABLETS BY MOUTH DAILY TO PREVENT CONSTIPATION ferrous sulfate [FeroSul] 325 mg (65 mg iron) tablet 325 mg PO MOWEFR Nephro-Chris 0.8 mg tablet 1 tab PO DAILY gabapentin 100 mg capsule 100 mg PO TID ergocalciferol (vitamin D2) 1,250 mcg (50,000 unit) capsule 1,250 mcg PO MOWEFR amlodipine 10 mg tablet 10 mg PO DAILY promethazine 25 mg tablet 25 mg PO Q6H PRN (Reason: NAUSEA/VOMITING) Discontinued atorvastatin 20 mg tablet 20 mg PO QHS ibuprofen 400 mg tablet 400 mg PO Q6H PRN (Reason: headache) Qty: 20 0RF rizatriptan 10 mg tablet,disintegrating 10 mg PO UD PRN (Reason: Headache) Referrals / Follow Up: Maddy Anaya MD [Primary Care Provider] - Within 2 Weeks Albino Nicole MD [Med Staff - Consulting] - Within 1 Week Marcos Burgess MD [Non-Staff -Ordering Privileges] - Within 2 Weeks Disposition Disposition (needs filled in before D/C Order can be placed): Home, Self Care
[2022-09-04] MEDS: Senna/Docusate Sodium 1 Tablet PO (14:43)
[2022-09-04] MEDS: lamoTRIgine 25 MG Tablet 50 MG PO (14:43)
[2022-09-04] MEDS: Clopidogrel Bisulfate 75 MG Tablet PO (14:44)
[2022-09-04] MEDS: Pantoprazole Sodium 40 MG Tablet PO (14:44)
[2022-09-04] MEDS: Bumetanide 0.5 MG Tablet 1 MG PO (14:44)
[2022-09-04] MEDS: SEVELAMER CARBONATE 800 MG TABLET PO ×2 (14:44→21:45)
[2022-09-04] MEDS: Aspirin E.C. 81 MG Tablet PO (14:45)
[2022-09-04] MEDS: Loratadine 10 MG Tablet PO (14:45)
[2022-09-04] MEDS: Ferrous Sulfate 325 MG Tablet PO (14:45)
[2022-09-04] MEDS: Carvedilol 6.25 MG Tablet PO ×2 (14:45→21:45)
[2022-09-04] MEDS: Enoxaparin 30 MG/0.3 ML Syringe SC (14:45)
[2022-09-04] MEDS: Losartan Potassium 50 MG Tablet PO (14:45)
[2022-09-04] MEDS: Folic Acid/Vitamin B Comp W-C 1 Capsule 1 CAP PO (14:46)
[2022-09-04] MEDS: Ergocalciferol 1.25 MG (50, 000 UNIT) Capsule PO (14:46)
--- NOTE | 2022-09-04 14:48 | CASEMGMT ---
[facility]WELL made referrals to [facility]. [facility] is full. [facility] has declined patient as they do not have any transportation to dialysis. [facility] is reviewing referral. MAXWELL will contact patient's cousin to let her know about no inpatient rehab. Lacey John MEDICAL ASSISTANT DERMATOLOGY [facility]
[2022-09-04] MEDS: amLODIPine 10 MG Tablet PO (14:49)
--- NOTE | 2022-09-04 15:05 | PN.HOSP_ITS ---
Subjective Subjective Patient seen and examined. She still complained of headache, and still has the blurred vision in her left eye. Review of systems otherwise negative. Objective Data Objective Data Vital Signs: Vital Signs Temp Pulse Resp BP Pulse Ox O2 Del Method O2 Flow Rate 97.8 F 72 18 97/55 L 97 Room Air 2 09/04/22 14:00 09/04/22 14:00 09/04/22 14:00 09/04/22 14:00 09/04/22 14:00 09/04/22 14:00 09/04/22 08:16 Oxygen Flow Rate (L/min) 2 Oxygen Delivery Method Room Air Weight: 286 lb 9.615 oz Body Mass Index (BMI) 44.9 Intake & Output: Intake and Output for Last 24 Hours 09/02/22 09/03/22 09/04/22 23:59 23:59 23:59 Intake Total 2650 / 2650 450 / 450 Output Total 300 / 300 300 / 300 Balance 2350 / 2350 150 / 150 Lab / Micro Data Result Diagrams: 09/04/22 05:35 09/04/22 05:35 Labs: Laboratory Results - last 24 hr 09/03/22 16:21: POC Glucose 282 H 09/03/22 21:30: POC Glucose 389 H 09/04/22 05:35: WBC 5.6, RBC 3.79 L, Hgb 11.8 L, Hct 36.4 L, MCV 96.0, MCH 31.1, MCHC 32.4, RDW Std Deviation 49.8 H, RDW Coeff of Juan 14.4, Plt Count 232, MPV 9.9, Immature Gran % (Auto) 0.700, Neut % (Auto) 56.5, Lymph % (Auto) 30.5, [place] % (Auto) 7.5, Eos % (Auto) 4.1, Baso % (Auto) 0.7, Absolute Neuts (auto) 3.2, Absolute Lymphs (auto) 1.71, Nucleated RBC % 0 09/04/22 05:35: Sodium 130 L, Potassium 4.8, Chloride 97 L, Carbon Dioxide 25.0, Anion Gap 8, BUN 30 H, Creatinine 4.39 H, Estim Creat Clear Calc 15.57, Est GFR (MDRD) Af Amer 14 L, Est GFR (MDRD) Non-Af 12 L, BUN/Creatinine Ratio 6.8 L, Glucose 530 H*, Calcium 7.9 L 09/04/22 06:28: POC Glucose 448 H 09/04/22 11:20: POC Glucose 196 H Radiography Diagnostic Testing: Radiology Impression Head MRA 09/03/22 15:00 IMPRESSION: Normal MRA of the head Electronically Signed: Bertram Antonio MD at 16:45 EST , Brain MRI 09/03/22 15:14 IMPRESSION: Normal unenhanced MRV of the brain. Electronically Signed: Meek Downs MD at 17:31 EST , Neck MRA 09/03/22 15:25 IMPRESSION: Normal bilateral cervical carotid and vertebral arteries. Electronically Signed: Meek Downs MD at 17:36 EST , Physical Exam Narrative had a towel over her eyes due to headache Const alert and oriented x3 HEENT normocephalic, head/scalp atraumatic, hearing grossly normal bilaterally and moist oral mucous membranes Head and Scalp: normocephalic Mouth: oral and palatal mucosa normal Eyes PERRL, EOMs intact bilaterally and conjunctivae normal Neck no lymphadenopathy and supple Resp normal respiratory effort, no retractions, no use of accessory muscles and clear to auscultation bilaterally Cardio regular rate, regular rhythm, S1 normal heart sound, S2 normal heart sound and no murmurs GI normal to inspection, nondistended, normoactive bowel sounds, soft to palpation and non-tender Extremity normal to inspection, full ROM and no clubbing, cyanosis or edema Neuro oriented x3, CN's II-XII intact bilaterally, moves all extremities and no focal motor deficits Neuro Narrative: impaired vision in left eye, with loss of peripheral vision in left eye Sensorium / Orientation: awake and alert Speech: speech normal Motor Exam: strength 5/5 throughout Psych Psych Narrative: flat affect Assessment & Plan Assessment/Plan (1) ESRD needing dialysis: (2) Intractable headache: (3) Hyperglycemia: (4) Hypertension: PLAN: Plan #Intractable headache and acute ischemic CVA * was admitted 2 weeks ago and managed for migraine headache. Headache has still persisted. * says it is very severe now. CT brain showed no evidence of acute intracranial pathology * MRI of brain without contrast showed findings suspicious for right occipital infarct, with findings on T2 weighted imaging somewhat atypical, nad contrast enhanced sequences may be helpful to exclude underlying lesions * MRI of brain with contrast showed nonenhancing acute ischemic infarct in the cuneus of the right occipital lobe * on aspirin, high intensity statin and plavix * 2D echo showed EF of 60% with moderate concentric LVH and normal LVSF with no regional wall motion abnormalities. * neurology reviewed patient and is worried about cerebral venous thrombosis. Recommendation is to dc rizatriptan and place on tramadol for headache * MRA head and neck and MRV head was normal. * PT/OT on board. Fall precautions * headache thought to be due to migraines. * discussed MRA/MRV results with neurology today. To keep patient on dual antiplatelet therapy; neurology counseled patient that her vision may likely not fully return to normal. 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 * on ISS with novolog * on lantus 17 units qhs * check A1C * on metoclorpromide for gastroparesis and gabapentin for neuropathy * * #Hypertension: * on amlodipine, carvedilol and losartan * IV hydralazine prn * #Hyperlipidemia: On statin #ESRD: * On dialysis Wednesdays and Fridays. * Nephrology on board. #GERD: On PPI DVT prophylaxis: lovenox, renally dosed Code status: full code Disposition: skilled as needing SNF; case management on board. Charges/Coding Visit Charges Inpatient E&M: 30347 Subs Hosp L2
--- NOTE | 2022-09-04 15:05 | PHA.DC.MR ---
Pharmacy Service has performed discharge medication reconciliation for this patient. The patient's discharge medication list was reviewed for discrepancies and discrepancies were resolved. Home Medications aspirin 81 mg tablet,delayed release 81 mg PO DAILY HEART HEALTH 06/23/22 bumetanide 1 mg tablet 1 mg PO DAILY FLUID 06/23/22 cetirizine 10 mg tablet 10 mg PO DAILY ALLERGIES 06/23/22 dicyclomine 10 mg capsule 10 mg PO BID STOMACH 06/23/22 insulin aspart U-100 100 unit/mL (3 mL) subcutaneous pen (Novolog Flexpen U-100 Insulin aspart) 6 - 10 unit subcut TID DIABETES 06/23/22 insulin detemir U-100 100 unit/mL (3 mL) subcutaneous pen (Levemir FlexTouch U-100 Insulin) 17 unit subcut QHS DIABETES 06/23/22 lamotrigine 50 mg disintegrating tablet 50 mg PO DAILY MOOD 06/23/22 losartan 50 mg tablet 50 mg PO DAILY BLOOD PRESSURE 06/23/22 pantoprazole 40 mg tablet,delayed release 40 mg PO DAILY ACID REFLUX 06/23/22 tamsulosin 0.4 mg capsule 0.4 mg PO DAILY BLADDER 06/23/22 oxycodone-acetaminophen 5 mg-325 mg tablet (Percocet) 1 tab PO Q8H PRN pain 5 days #14 tabs 07/07/22 sucroferric oxyhydroxide 500 mg chewable tablet (Velphoro) 500 mg PO TIDCM kidney 08/19/22 carvedilol 6.25 mg tablet 6.25 mg PO BIDCM 30 days #60 tabs 08/21/22 amlodipine 10 mg tablet 10 mg PO DAILY BLOOD PRESSURE 09/01/22 ergocalciferol (vitamin D2) 1,250 mcg (50,000 unit) capsule 1,250 mcg PO MOWEFR SUPPLEMENT 09/01/22 ferrous sulfate 325 mg (65 mg iron) tablet (FeroSul) 325 mg PO MOWEFR SUPPLEMENT 09/01/22 gabapentin 100 mg capsule 100 mg PO TID NERVE PAIN 09/01/22 promethazine 25 mg tablet 25 mg PO Q6H PRN NAUSEA/VOMITING 09/01/22 sennosides 8.6 mg-docusate sodium 50 mg tablet (Senexon-S) 1 - 2 tab PO DAILY CONSTIPATION 09/01/22 vitamin B complex-vitamin C-folic acid 0.8 mg tablet (Nephro-Chris) 1 tab PO DAILY SUPPLEMENT 09/01/22 atorvastatin 40 mg tablet 40 mg PO QHS #30 tabs 09/04/22 clopidogrel 75 mg tablet 75 mg PO DAILY #21 tabs 09/04/22
--- NOTE | 2022-09-04 15:20 | CM.UR ---
MAXWELL spoke with patient's cousin Laura Mckeon. SW let her know that patient cannot go to [facility] Inpatient Rehab Unit as she is on dialysis and they do not take patients on dialysis. SW let her know SW checked with the [place] facilities, but they are having troubles with transportation. Also, if patient went to an [place] facility she would likely have to switch her dialysis center to [place]. Laura Mckeon said that she does not think patient will want to switch to a different dialysis center so she asked SW to try [place] facilities. SW went through some of the facilities with star ratings and she was open to [facility]. MAXWELL sent a referral to [facility]. SW can print a list and put it in patient's room, but her cousin cannot come in to the hospital until after 8p due to her job. MAXWELL sent a referral to [facility]. Patient will likely be here through the weekend due to still needing a facility to accept patient. Plan: SNF pending accepting facility. Lacey John NIGHT AUDITORArchie NUNEZ
--- NOTE | 2022-09-04 15:32 | CASEMGMT ---
MAXWELL spoke with patient updating her on no inpatient rehab unit due to dialysis, [facility] but would have to change dialysis centers. Patient said she does not want to switch her dialysis facilities. MAXWELL let her know that Any wanted MAXWELL to send a referral to [facility]. SW let patient know she will likely be here through the weekend as [facility] will likely not get back to us that quickly. Await response from [facility]. Plan: SNF pending accepting facility. Lacey NUNEZ
[2022-09-04] MEDS: Tamsulosin HCl 0.4 MG Capsule PO (17:43)
[2022-09-04 19:36] LABS: Bedside Glucose 423 mg/dL (74-106)
[2022-09-04] MEDS: Insulin Glargine-YFGN 100 UNIT/ML Pen 17 UNIT SC (21:45)
[2022-09-04] MEDS: Atorvastatin Calcium 40 MG Tablet PO (21:45)
[2022-09-04 23:36] LABS: Bedside Glucose 372 mg/dL (74-106)
[2022-09-05] VITALS (10 sets, daily range): BP systolic 106–135; BP diastolic 62–81; PULSE 56–65; RESP 14–18; TEMP 36.4–36.6; O2SAT 94–98; BMI 44.9
[2022-09-05] MEDS: Gabapentin 100 MG Capsule PO ×3 (06:30→21:29)
[2022-09-05] MEDS: Dicyclomine 10 MG Capsule PO ×2 (06:30→17:17)
[2022-09-05 06:55] LABS: Bedside Glucose 296 mg/dL (74-106)
[2022-09-05 06:56] LABS: Absolute Neutrophil Count 3.1 X10^3/uL (2.0-7.7); Basophil# 0.05 X10^3/uL; Basophil% 0.8 % (0-1); Eosinophil# 0.23 X10^3/uL; Eosinophils% 3.6 % (0-5); Hematocrit 36.7 % (37-47); Hemoglobin 12.2 g/dL (12.0-15.0); Lymphocyte % 40.4 % (19-41); Mean Corp Hgb Conc 33.2 g/dL (32-36); Mean Corpuscular Hgb 31.7 pg (27.0-32.0); Mean Corpuscular Volume 95.3 fL (81-99); Mean Platelet Vol. 9.4 fl (6.2-12.0); Monocyte# 0.44 X10^3/uL; Monocyte% 6.8 % (0-10); NRBC Flagged by Analyzer 0 % (0-5); Neutrophil % 48.1 % (47-70); Platelet Count 203 K/mm3 (150-450); RBC Distribution Width CV 14.6 % (11.6-14.6); RBC Distribution Width SD 49.1 fl (35.1-43.9); Red Blood Count 3.85 M/mm3 (4.2-5.4); White Blood Count 6.4 K/mm3 (4.4-11.0)
--- NOTE | 2022-09-05 07:36 | NURSING ---
Documentation reviewed with Jovita BARRON.
[2022-09-05 07:55] LABS: Anion Gap 7 (5-15); BUN 28 mg/dL (7-18); BUN/Creat Ratio 7.8 RATIO (10-20); Chloride 96 mmol/L (98-107); EST Glomerular Filtration Rate 14 mL/min (>60); Est Glom Filt Rate - Afr Amer 18 mL/min (>60); Estimated Creatinine Clearance 18.99 ml/min; Glucose 343 mg/dL (74-106); Potassium 4.8 mmol/L (3.5-5.1); Sodium Level 129 mmol/L (136-145)
[2022-09-05] MEDS: traMADol 50 MG Tablet PO ×2 (08:14→21:29)
[2022-09-05] MEDS: Carvedilol 6.25 MG Tablet PO ×2 (08:17→17:20)
[2022-09-05] MEDS: Aspirin E.C. 81 MG Tablet PO (08:17)
[2022-09-05] MEDS: amLODIPine 10 MG Tablet PO (08:17)
[2022-09-05] MEDS: Bumetanide 0.5 MG Tablet 1 MG PO (08:17)
[2022-09-05] MEDS: SEVELAMER CARBONATE 800 MG TABLET PO (08:18)
[2022-09-05] MEDS: Pantoprazole Sodium 40 MG Tablet PO (08:18)
[2022-09-05] MEDS: Senna/Docusate Sodium 1 Tablet PO (08:19)
[2022-09-05] MEDS: lamoTRIgine 25 MG Tablet 50 MG PO (08:19)
[2022-09-05] MEDS: Enoxaparin 30 MG/0.3 ML Syringe SC (08:20)
[2022-09-05] MEDS: Clopidogrel Bisulfate 75 MG Tablet PO (08:20)
[2022-09-05] MEDS: Losartan Potassium 50 MG Tablet PO (08:21)
[2022-09-05] MEDS: Folic Acid/Vitamin B Comp W-C 1 Capsule 1 CAP PO (08:21)
[2022-09-05] MEDS: Loratadine 10 MG Tablet PO (08:23)
--- NOTE | 2022-09-05 09:23 | PCM.PN.REN ---
Subjective Subjective Following for ESRD. The patient still has headache. However, she denies chest pain, shortness of breath, or nausea. She is hungry. Objective Data Objective Data Vital Signs: Vital Signs Temp Pulse Resp BP Pulse Ox O2 Del Method O2 Flow Rate 97.6 F L 63 15 135/69 H 96 Room Air 2 09/05/22 08:06 09/05/22 08:06 09/05/22 08:06 09/05/22 08:06 09/05/22 08:06 09/05/22 08:06 09/04/22 08:16 Oxygen Flow Rate (L/min) 2 Oxygen Delivery Method Room Air Weight: 134.6 kg Body Mass Index (BMI) 44.9 Intake & Output: Intake and Output for Last 24 Hours 09/03/22 09/04/22 09/05/22 23:59 23:59 23:59 Intake Total 450 / 450 480 / 505 75 / 75 Output Total 300 / 300 Balance 150 / 150 480 / 505 75 / 75 Lab / Micro Data Result Diagrams: 09/05/22 06:40 09/05/22 06:40 Labs: Laboratory Results - last 24 hr 09/04/22 11:20: POC Glucose 196 H 09/04/22 17:39: POC Glucose 423 H 09/04/22 21:41: POC Glucose 372 H 09/05/22 06:29: POC Glucose 296 H 09/05/22 06:40: WBC 6.4, RBC 3.85 L, Hgb 12.2, Hct 36.7 L, MCV 95.3, MCH 31.7, MCHC 33.2, RDW Std Deviation 49.1 H, RDW Coeff of Juan 14.6, Plt Count 203, MPV 9.4, Immature Gran % (Auto) 0.300, Neut % (Auto) 48.1, Lymph % (Auto) 40.4, [place] % (Auto) 6.8, Eos % (Auto) 3.6, Baso % (Auto) 0.8, Absolute Neuts (auto) 3.1, Absolute Lymphs (auto) 2.60, Nucleated RBC % 0 09/05/22 06:40: Sodium 129 L, Potassium 4.8, Chloride 96 L, Carbon Dioxide 26.0, Anion Gap 7, BUN 28 H, Creatinine 3.60 H, Estim Creat Clear Calc 18.99, Est GFR (MDRD) Af Amer 18 L, Est GFR (MDRD) Non-Af 14 L, BUN/Creatinine Ratio 7.8 L, Glucose 343 H, Calcium 8.0 L Physical Exam Narrative Const: Alert and oriented x3. No apparent distress Cardio: S1, S2, RRR Respiratory: Lung sounds clear anteriorly and posteriorly. No wheezes, rhonchi or rales noted GI: Abdomen soft, nontender, positive bowel sounds Extremities: No edema noted bilateral lower legs. AV fistula left upper arm positive thrill and bruit Assessment & Plan Assessment/Plan (1) ESRD needing dialysis: (2) Intractable headache: (3) Hyperglycemia: (4) Hypertension: PLAN: Plan - ESRD on HD MWF: The patient was dialyzed yesterday, and she is now back on her usual outpatient MWF schedule. No need for dialysis today. Next dialysis will be on 09/07/2022. - Intractable headache: MRI of brain without contrast showed findings suspicious for right occipital infarct, with findings on T2 weighted imaging somewhat atypical, and contrast enhanced sequences may be helpful to exclude underlying lesions. MRI of brain with contrast showed nonenhancing acute ischemic infarct in the cuneus of the right occipital lobe. Patient had CT of brain in the emergency room which did not show any acute ischemic infarction, no intracranial hemorrhage no acute findings. To have Echo and Carotids. To have MRA head/neck, MRV head. Overall management of headache [facility]. - Anemia of chronic disease, hemoglobin is 12.2 g/dL, which is above goal for ESRD patient. She does not need NOREEN at this time. - HTN: BP is controlled. Continue current blood pressure medications (amlodipine 10 mg daily, bumetanide 1 mg once a day, carvedilol 6.25 mg twice daily, losartan 50 mg daily). 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 However, the patient tells me that she gets nauseated with this medication. She is on Velphoro at home. She has the medication with her, so we will have medication verified by pharmacy and start the patient on Velphoro instead of sevelamer. We will check calcium and phosphorus level prior to next dialysis.
--- NOTE | 2022-09-05 12:30 | PN.HOSP_ITS ---
Subjective Subjective Patient seen and examined. She still has some headache and still has impaired vision in the left eye, especially in the peripheral vision. Review of systems is otherwise negative. Objective Data Objective Data Vital Signs: Vital Signs Temp Pulse Resp BP Pulse Ox O2 Del Method O2 Flow Rate 97.6 F L 60 15 135/69 H 96 Room Air 2 09/05/22 08:06 09/05/22 11:50 09/05/22 08:06 09/05/22 08:06 09/05/22 08:06 09/05/22 08:06 09/04/22 08:16 Oxygen Flow Rate (L/min) 2 Oxygen Delivery Method Room Air Weight: 296 lb 11.875 oz Body Mass Index (BMI) 44.9 Intake & Output: Intake and Output for Last 24 Hours 09/03/22 09/04/22 09/05/22 23:59 23:59 23:59 Intake Total 450 / 450 480 / 505 315 / 315 Output Total 300 / 300 Balance 150 / 150 480 / 505 315 / 315 Lab / Micro Data Result Diagrams: 09/05/22 06:40 09/05/22 06:40 Labs: Laboratory Results - last 24 hr 09/04/22 17:39: POC Glucose 423 H 09/04/22 21:41: POC Glucose 372 H 09/05/22 06:29: POC Glucose 296 H 09/05/22 06:40: WBC 6.4, RBC 3.85 L, Hgb 12.2, Hct 36.7 L, MCV 95.3, MCH 31.7, MCHC 33.2, RDW Std Deviation 49.1 H, RDW Coeff of Juan 14.6, Plt Count 203, MPV 9.4, Immature Gran % (Auto) 0.300, Neut % (Auto) 48.1, Lymph % (Auto) 40.4, [place] % (Auto) 6.8, Eos % (Auto) 3.6, Baso % (Auto) 0.8, Absolute Neuts (auto) 3.1, Absolute Lymphs (auto) 2.60, Nucleated RBC % 0 09/05/22 06:40: Sodium 129 L, Potassium 4.8, Chloride 96 L, Carbon Dioxide 26.0, Anion Gap 7, BUN 28 H, Creatinine 3.60 H, Estim Creat Clear Calc 18.99, Est GFR (MDRD) Af Amer 18 L, Est GFR (MDRD) Non-Af 14 L, BUN/Creatinine Ratio 7.8 L, Glucose 343 H, Calcium 8.0 L Physical Exam Narrative had a towel over her eyes due to headache Const alert, oriented x3 and no apparent distress Constitutional Narrative: HEENT normocephalic, head/scalp atraumatic, hearing grossly normal bilaterally and moist oral mucous membranes Head and Scalp: normocephalic Mouth: oral and palatal mucosa normal Eyes PERRL, EOMs intact bilaterally and conjunctivae normal Neck no lymphadenopathy and supple Resp normal respiratory effort, no retractions, no use of accessory muscles and clear to auscultation bilaterally Cardio regular rate, regular rhythm, S1 normal heart sound, S2 normal heart sound and no murmurs GI normal to inspection, nondistended, normoactive bowel sounds, soft to palpation and non-tender Extremity normal to inspection, full ROM and no clubbing, cyanosis or edema Neuro oriented x3, CN's II-XII intact bilaterally, moves all extremities and no focal motor deficits Neuro Narrative: impaired vision in left eye, with loss of peripheral vision in left eye Sensorium / Orientation: awake and alert Speech: speech normal Motor Exam: strength 5/5 throughout Psych Psych Narrative: flat affect Assessment & Plan Assessment/Plan (1) ESRD needing dialysis: (2) Intractable headache: (3) Hyperglycemia: (4) Hypertension: PLAN: Plan #Intractable headache and acute ischemic CVA * was admitted 2 weeks prior to admission, and managed for migraine headache. Headache has still persisted. * says it is very severe now. CT brain showed no evidence of acute intracranial pathology * MRI of brain without contrast showed findings suspicious for right occipital infarct, with findings on T2 weighted imaging somewhat atypical, nad contrast enhanced sequences may be helpful to exclude underlying lesions * MRI of brain with contrast showed nonenhancing acute ischemic infarct in the cuneus of the right occipital lobe * on aspirin, high intensity statin and plavix * 2D echo showed EF of 60% with moderate concentric LVH and normal LVSF with no regional wall motion abnormalities. * neurology reviewed patient and is worried about cerebral venous thrombosis. Recommendation is to dc rizatriptan and place on tramadol for headache * MRA head and neck and MRV head was normal. * PT/OT on board. Fall precautions * headache thought to be due to migraines. * discussed MRA/MRV results with neurology today. To keep patient on dual antiplatelet therapy; neurology counseled patient that her vision may likely not fully return to normal. 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 * on ISS with novolog * on lantus 17 units qhs * check A1C * on metoclorpromide for gastroparesis and gabapentin for neuropathy * * #Hypertension: * on amlodipine, carvedilol and losartan * IV hydralazine prn * #Hyperlipidemia: On statin #ESRD: * On dialysis Wednesdays and Fridays. * Nephrology on board. * #HYpoglycemia * sodium is 129, likely due to fluid overload from hyponatremia. * diurese with IV lasix #GERD: On PPI DVT prophylaxis: lovenox, renally dosed Code status: full code Disposition: skilled as needing SNF; case management on board. Charges/Coding Visit Charges Inpatient E&M: 23872 Subs Hosp L2
[2022-09-05 13:16] LABS: Bedside Glucose 335 mg/dL (74-106)
[2022-09-05] MEDS: Tamsulosin HCl 0.4 MG Capsule PO (17:20)
[2022-09-05] MEDS: SUCROFERRIC OXYHYDROXIDE 500 MG TAB.CHEW PO (17:20)
[2022-09-05 18:46] LABS: Bedside Glucose 268 mg/dL (74-106)
[2022-09-05] MEDS: Atorvastatin Calcium 40 MG Tablet PO (21:30)
[2022-09-05] MEDS: Insulin Glargine-YFGN 100 UNIT/ML Pen 17 UNIT SC (21:31)
[2022-09-06] VITALS (9 sets, daily range): BP systolic 112–145; BP diastolic 56–78; PULSE 56–68; RESP 14–18; TEMP 36.3–37.1; O2SAT 94–100; BMI 44.9
[2022-09-06 00:50] LABS: Bedside Glucose 314 mg/dL (74-106)
[2022-09-06] MEDS: Dicyclomine 10 MG Capsule PO ×2 (05:55→16:02)
[2022-09-06] MEDS: 0.9% Saline Lock 10 ML Syringe IV (05:55)
[2022-09-06] MEDS: Gabapentin 100 MG Capsule PO ×3 (05:55→21:57)
[2022-09-06 07:20] LABS: Bedside Glucose 320 mg/dL (74-106)
[2022-09-06 07:47] LABS: Absolute Lymphocyte Count 2.17 X10^3/uL (0.83-4.51); Absolute Neutrophil Count 2.9 X10^3/uL (2.0-7.7); Basophil# 0.05 X10^3/uL; Basophil% 0.9 % (0-1); Eosinophil# 0.24 X10^3/uL; Eosinophils% 4.2 % (0-5); Hematocrit 37.8 % (37-47); Hemoglobin 12.7 g/dL (12.0-15.0); Lymphocyte # 2.17 X10^3/ul (0.83-4.51); Lymphocyte % 38.1 % (19-41); Mean Corp Hgb Conc 33.6 g/dL (32-36); Mean Corpuscular Hgb 31.4 pg (27.0-32.0); Mean Corpuscular Volume 93.6 fL (81-99); Mean Platelet Vol. 9.5 fl (6.2-12.0); Monocyte# 0.35 X10^3/uL; Monocyte% 6.1 % (0-10); NRBC Flagged by Analyzer 0 % (0-5); Neutrophil # 2.87 X10^3/uL (2.7-7.7); Neutrophil % 50.3 % (47-70); Platelet Count 216 K/mm3 (150-450); RBC Distribution Width CV 14.2 % (11.6-14.6); RBC Distribution Width SD 48.7 fl (35.1-43.9); Red Blood Count 4.04 M/mm3 (4.2-5.4); White Blood Count 5.7 K/mm3 (4.4-11.0)
[2022-09-06 08:12] LABS: Anion Gap 9 (5-15); BUN 40 mg/dL (7-18); BUN/Creat Ratio 8.8 RATIO (10-20); Calcium,Total 8.3 mg/dL (8.5-10.1); Chloride 97 mmol/L (98-107); Creatinine, Serum 4.55 mg/dL (0.55-1.02); EST Glomerular Filtration Rate 11 mL/min (>60); Est Glom Filt Rate - Afr Amer 13 mL/min (>60); Estimated Creatinine Clearance 15.02 ml/min; Glucose 339 mg/dL (74-106); Potassium 4.3 mmol/L (3.5-5.1); Sodium Level 131 mmol/L (136-145)
[2022-09-06] MEDS: Enoxaparin 30 MG/0.3 ML Syringe SC (08:23)
[2022-09-06] MEDS: Carvedilol 6.25 MG Tablet PO ×2 (08:23→16:03)
[2022-09-06] MEDS: Pantoprazole Sodium 40 MG Tablet PO (08:24)
[2022-09-06] MEDS: Folic Acid/Vitamin B Comp W-C 1 Capsule 1 CAP PO (08:24)
[2022-09-06] MEDS: lamoTRIgine 25 MG Tablet 50 MG PO (08:24)
[2022-09-06] MEDS: Bumetanide 0.5 MG Tablet 1 MG PO (08:25)
[2022-09-06] MEDS: Clopidogrel Bisulfate 75 MG Tablet PO (08:25)
[2022-09-06] MEDS: Losartan Potassium 50 MG Tablet PO (08:27)
[2022-09-06] MEDS: Ergocalciferol 1.25 MG (50, 000 UNIT) Capsule PO (08:27)
[2022-09-06] MEDS: Senna/Docusate Sodium 1 Tablet PO (08:28)
[2022-09-06] MEDS: amLODIPine 10 MG Tablet PO (08:29)
[2022-09-06] MEDS: SUCROFERRIC OXYHYDROXIDE 500 MG TAB.CHEW PO ×3 (08:29→16:02)
[2022-09-06] MEDS: Aspirin E.C. 81 MG Tablet PO (08:29)
[2022-09-06] MEDS: traMADol 50 MG Tablet PO (08:31)
[2022-09-06 10:55] LABS: Bedside Glucose 335 mg/dL (74-106)
--- NOTE | 2022-09-06 11:42 | PN.HOSP_ITS ---
Subjective Subjective Patient seen and examined. She still complains of a headache and still has impaired vision in her left eye. Review of systems is otherwise negative. She is awaiting placement. Objective Data Objective Data Vital Signs: Vital Signs Temp Pulse Resp BP Pulse Ox O2 Del Method O2 Flow Rate 97.8 F 56 L 14 133/58 H 100 Nasal Cannula 2 09/06/22 08:18 09/06/22 08:18 09/06/22 08:18 09/06/22 08:18 09/06/22 08:18 09/06/22 08:18 09/06/22 08:18 Oxygen Flow Rate (L/min) 2 Oxygen Delivery Method Nasal Cannula Weight: 297 lb 6.457 oz Body Mass Index (BMI) 44.9 Intake & Output: Intake and Output for Last 24 Hours 09/04/22 09/05/22 09/06/22 23:59 23:59 23:59 Intake Total 480 / 505 555 / 555 440 / 440 Balance 480 / 505 555 / 555 440 / 440 Lab / Micro Data Result Diagrams: 09/06/22 07:33 09/06/22 07:33 Labs: Laboratory Results - last 24 hr 09/05/22 12:14: POC Glucose 335 H 09/05/22 17:16: POC Glucose 268 H 09/05/22 21:26: POC Glucose 314 H 09/06/22 06:19: POC Glucose 320 H 09/06/22 07:33: WBC 5.7, RBC 4.04 L, Hgb 12.7, Hct 37.8, MCV 93.6, MCH 31.4, MCHC 33.6, RDW Std Deviation 48.7 H, RDW Coeff of Juan 14.2, Plt Count 216, MPV 9.5, Immature Gran % (Auto) 0.400, Neut % (Auto) 50.3, Lymph % (Auto) 38.1, [place] % (Auto) 6.1, Eos % (Auto) 4.2, Baso % (Auto) 0.9, Absolute Neuts (auto) 2.9, Absolute Lymphs (auto) 2.17, Nucleated RBC % 0 09/06/22 07:33: Sodium 131 L, Potassium 4.3, Chloride 97 L, Carbon Dioxide 25.0, Anion Gap 9, BUN 40 H, Creatinine 4.55 H, Estim Creat Clear Calc 15.02, Est GFR (MDRD) Af Amer 13 L, Est GFR (MDRD) Non-Af 11 L, BUN/Creatinine Ratio 8.8 L, Glucose 339 H, Calcium 8.3 L 09/06/22 10:29: POC Glucose 335 H Physical Exam Const alert, oriented x3 and no apparent distress Constitutional Narrative: obese HEENT head/scalp atraumatic, moist oral mucous membranes and oropharynx normal Head and Scalp: normocephalic Mouth: oral and palatal mucosa normal Eyes PERRL, EOMs intact bilaterally and conjunctivae normal Neck no lymphadenopathy Resp normal respiratory effort, no retractions, no use of accessory muscles and clear to auscultation bilaterally Cardio regular rate, regular rhythm, S1 normal heart sound, S2 normal heart sound and no murmurs GI normal to inspection, nondistended, normoactive bowel sounds, soft to palpation, non-tender and non-distended Extremity normal to inspection, full ROM and no clubbing, cyanosis or edema Extremity Narrative: AV fistula in LUE with good thrill Neuro oriented x3, CN's II-XII intact bilaterally, moves all extremities and no focal motor deficits Sensorium / Orientation: awake and alert Motor Exam: strength 5/5 throughout Psych affect normal Assessment & Plan Assessment/Plan (1) ESRD needing dialysis: (2) Intractable headache: (3) Hyperglycemia: (4) Hypertension: PLAN: Plan #Intractable headache and acute ischemic CVA * was admitted 2 weeks prior to admission, and managed for migraine headache. Headache has still persisted. * says it is very severe now. CT brain showed no evidence of acute intracranial pathology * MRI of brain without contrast showed findings suspicious for right occipital infarct, with findings on T2 weighted imaging somewhat atypical, and contrast enhanced sequences may be helpful to exclude underlying lesions * MRI of brain with contrast showed nonenhancing acute ischemic infarct in the cuneus of the right occipital lobe * on aspirin, high intensity statin and plavix * 2D echo showed EF of 60% with moderate concentric LVH and normal LVSF with no regional wall motion abnormalities. * neurology reviewed patient and is worried about cerebral venous thrombosis. Recommendation is to dc rizatriptan and place on tramadol for headache * MRA head and neck and MRV head was normal. * PT/OT on board. Fall precautions * headache thought to be due to migraines. * discussed MRA/MRV results with neurology. To keep patient on dual antiplatelet therapy; neurology counseled patient that her vision may likely not fully return to normal. 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 * on ISS with novolog * on lantus 17 units qhs * check A1C * on metoclorpromide for gastroparesis and gabapentin for neuropathy * #Hypertension: * on? amlodipine, carvedilol and losartan * IV hydralazine prn * #Hyperlipidemia: On statin #ESRD: * On dialysis Wednesdays and Fridays. * Nephrology on board. * #HYponatremia * ?sodium is 131, likely due to fluid overload from hyponatremia. * diurese with IV lasix #GERD: On PPI DVT prophylaxis: lovenox, renally dosed Code status: full code Charges/Coding Visit Charges Inpatient E&M: 01210 Subs Hosp L2
--- NOTE | 2022-09-06 12:01 | PN.RENAL_ITS ---
Subjective Subjective Following for ESRD. Headache is slightly better, but she still has significant photophobia. She denies chest pain or shortness of breath. Objective Data Objective Data Vital Signs: Vital Signs Temp Pulse Resp BP Pulse Ox O2 Del Method O2 Flow Rate 97.8 F 61 14 133/58 H 100 Nasal Cannula 2 09/06/22 08:18 09/06/22 11:42 09/06/22 08:18 09/06/22 08:18 09/06/22 08:18 09/06/22 08:18 09/06/22 08:18 Oxygen Flow Rate (L/min) 2 Oxygen Delivery Method Nasal Cannula Weight: 134.9 kg Body Mass Index (BMI) 44.9 Intake & Output: Intake and Output for Last 24 Hours 09/04/22 09/05/22 09/06/22 23:59 23:59 23:59 Intake Total 480 / 505 555 / 555 440 / 440 Balance 480 / 505 555 / 555 440 / 440 Lab / Micro Data Result Diagrams: 09/06/22 07:33 09/06/22 07:33 Labs: Laboratory Results - last 24 hr 09/05/22 12:14: POC Glucose 335 H 09/05/22 17:16: POC Glucose 268 H 09/05/22 21:26: POC Glucose 314 H 09/06/22 06:19: POC Glucose 320 H 09/06/22 07:33: WBC 5.7, RBC 4.04 L, Hgb 12.7, Hct 37.8, MCV 93.6, MCH 31.4, MCHC 33.6, RDW Std Deviation 48.7 H, RDW Coeff of Juan 14.2, Plt Count 216, MPV 9.5, Immature Gran % (Auto) 0.400, Neut % (Auto) 50.3, Lymph % (Auto) 38.1, [place] % (Auto) 6.1, Eos % (Auto) 4.2, Baso % (Auto) 0.9, Absolute Neuts (auto) 2.9, Absolute Lymphs (auto) 2.17, Nucleated RBC % 0 09/06/22 07:33: Sodium 131 L, Potassium 4.3, Chloride 97 L, Carbon Dioxide 25.0, Anion Gap 9, BUN 40 H, Creatinine 4.55 H, Estim Creat Clear Calc 15.02, Est GFR (MDRD) Af Amer 13 L, Est GFR (MDRD) Non-Af 11 L, BUN/Creatinine Ratio 8.8 L, Glucose 339 H, Calcium 8.3 L 09/06/22 10:29: POC Glucose 335 H Physical Exam Narrative Const: Alert and oriented x3. No apparent distress Cardio: S1, S2, RRR Respiratory: Lung sounds clear anteriorly and posteriorly. No wheezes, rhonchi or rales noted GI: Abdomen soft, nontender, positive bowel sounds Extremities: No edema noted bilateral lower legs. AV fistula left upper arm positive thrill and bruit Assessment & Plan Assessment/Plan (1) ESRD needing dialysis: (2) Intractable headache: (3) Hyperglycemia: (4) Hypertension: PLAN: Plan - ESRD on HD MWF: The patient was dialyzed on 09/04/2022, and she is now back on her usual outpatient MWF schedule. No need for dialysis today. Next dialysis will be on 09/07/2022. - Intractable headache: Overall improvement. However, she still has intermittent headache with photophobia. Management of headache as per hospital medicine service. The patient will need short-term rehabilitation facility stay. - Anemia of chronic disease, hemoglobin is 12.7 g/dL today, which is above goal for ESRD patient. She does not need NOREEN at this time. - HTN: BP is controlled. Continue current blood pressure medications (amlodipine 10 mg daily, bumetanide 1 mg once a day, carvedilol 6.25 mg twice daily, and losartan 50 mg daily). 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 However, the patient tells me that she gets nauseated with this medication. She is on Velphoro at home. She has the medication with her, so we I had this medication verified by pharmacy and started the patient on Velphoro instead of sevelamer. We will check calcium and phosphorus level prior to next dialysis.
[2022-09-06] MEDS: Acetaminophen/Butalbital/Caffe 1 Tablet PO ×2 (15:55→21:57)
[2022-09-06] MEDS: Tamsulosin HCl 0.4 MG Capsule PO (16:01)
[2022-09-06 17:20] LABS: Bedside Glucose 295 mg/dL (74-106)
[2022-09-06] MEDS: Insulin Glargine-YFGN 100 UNIT/ML Pen 17 UNIT SC (21:57)
[2022-09-06] MEDS: Atorvastatin Calcium 40 MG Tablet PO (21:58)
[2022-09-06 23:00] LABS: Bedside Glucose 364 mg/dL (74-106)
[2022-09-07] VITALS (9 sets, daily range): BP systolic 126–152; BP diastolic 62–82; PULSE 60–71; RESP 16–18; TEMP 36.1–36.6; O2SAT 96–100; BMI 44.9
[2022-09-07 05:11] LABS: Absolute Lymphocyte Count 2.23 X10^3/uL (0.83-4.51); Absolute Neutrophil Count 2.8 X10^3/uL (2.0-7.7); Basophil# 0.06 X10^3/uL; Eosinophil# 0.29 X10^3/uL; Hematocrit 39.7 % (37-47); Hemoglobin 12.9 g/dL (12.0-15.0); Lymphocyte # 2.23 X10^3/ul (0.83-4.51); Lymphocyte % 38.3 % (19-41); Mean Corp Hgb Conc 32.5 g/dL (32-36); Mean Corpuscular Hgb 30.9 pg (27.0-32.0); Mean Platelet Vol. 9.4 fl (6.2-12.0); Monocyte# 0.39 X10^3/uL; Monocyte% 6.7 % (0-10); NRBC Flagged by Analyzer 0 % (0-5); Neutrophil # 2.83 X10^3/uL (2.7-7.7); Neutrophil % 48.5 % (47-70); Platelet Count 225 K/mm3 (150-450); RBC Distribution Width CV 14.3 % (11.6-14.6); RBC Distribution Width SD 49.1 fl (35.1-43.9); Red Blood Count 4.18 M/mm3 (4.2-5.4); White Blood Count 5.8 K/mm3 (4.4-11.0)
[2022-09-07 05:38] LABS: Anion Gap 9 (5-15); BUN 53 mg/dL (7-18); Chloride 96 mmol/L (98-107); Creatinine, Serum 5.32 mg/dL (0.55-1.02); EST Glomerular Filtration Rate 9 mL/min (>60); Est Glom Filt Rate - Afr Amer 11 mL/min (>60); Estimated Creatinine Clearance 12.85 ml/min; Glucose 292 mg/dL (74-106); Potassium 4.6 mmol/L (3.5-5.1); Sodium Level 132 mmol/L (136-145)
[2022-09-07 05:43] LABS: Phosphorus 6.5 mg/dL (2.5-4.9)
[2022-09-07] MEDS: Dicyclomine 10 MG Capsule PO (06:27)
[2022-09-07] MEDS: Gabapentin 100 MG Capsule PO ×2 (06:27→14:55)
[2022-09-07] MEDS: Acetaminophen/Butalbital/Caffe 1 Tablet PO ×2 (06:27→10:56)
[2022-09-07 06:56] LABS: Bedside Glucose 248 mg/dL (74-106)
--- NOTE | 2022-09-07 09:27 | CASEMGMT ---
MAXWELL received a message in [facility] from [place] stating they can accept patient. MAXWELL notified patient. MAXWELL will also notify patient's cousin, Any. Plan: d/c to [facility] [facility]
--- NOTE | 2022-09-07 09:31 | CASEMGMT ---
Addendum entered by Nita De León 09/07/22 12:48: Response back from [facility] stating they are aware of d/c to [facility] and will close [facility] for pt at this time. Alden BARRON CM Original Note: [facility] updated via [facility] that pt's plan is for [facility] at discharge. Alden BARRON CM
[2022-09-07] MEDS: Heparin 10,000 UNITS/10 ML Vial IV (10:55)
--- NOTE | 2022-09-07 11:23 | PN.RENAL_ITS ---
Subjective Subjective no new events Objective Data Objective Data Vital Signs: Vital Signs Temp Pulse Resp BP Pulse Ox O2 Del Method O2 Flow Rate 97.0 F L 70 16 152/82 H 99 Nasal Cannula 2 09/07/22 08:00 09/07/22 08:00 09/07/22 08:00 09/07/22 08:00 09/07/22 07:36 09/07/22 08:00 09/07/22 08:00 Oxygen Flow Rate (L/min) 2 Oxygen Delivery Method Nasal Cannula Weight: 133.4 kg Body Mass Index (BMI) 44.9 Intake & Output: Intake and Output for Last 24 Hours 09/05/22 09/06/22 09/07/22 23:59 23:59 23:59 Intake Total 555 / 555 1040 / 1280 240 / 240 Balance 555 / 555 1040 / 1280 240 / 240 Lab / Micro Data Result Diagrams: 09/07/22 04:55 09/07/22 04:55 Labs: Laboratory Results - last 24 hr 09/06/22 15:58: POC Glucose 295 H 09/06/22 21:55: POC Glucose 364 H 09/07/22 04:55: WBC 5.8, RBC 4.18 L, Hgb 12.9, Hct 39.7, MCV 95.0, MCH 30.9, MCHC 32.5, RDW Std Deviation 49.1 H, RDW Coeff of Juan 14.3, Plt Count 225, MPV 9.4, Immature Gran % (Auto) 0.500, Neut % (Auto) 48.5, Lymph % (Auto) 38.3, [place] % (Auto) 6.7, Eos % (Auto) 5.0, Baso % (Auto) 1.0, Absolute Neuts (auto) 2.8, Absolute Lymphs (auto) 2.23, Nucleated RBC % 0 09/07/22 04:55: Sodium 132 L, Potassium 4.6, Chloride 96 L, Carbon Dioxide 27.0, Anion Gap 9, BUN 53 H, Creatinine 5.32 H, Estim Creat Clear Calc 12.85, Est GFR (MDRD) Af Amer 11 L, Est GFR (MDRD) Non-Af 9 L, BUN/Creatinine Ratio 10.0, Glucose 292 H, Calcium 9.0 09/07/22 04:55: Phosphorus 6.5 H 09/07/22 06:32: POC Glucose 248 H Physical Exam Narrative Const: Alert and oriented x3. No apparent distress Cardio: S1, S2, RRR Respiratory: Lung sounds clear anteriorly and posteriorly. No wheezes, rhonchi or rales noted GI: Abdomen soft, nontender, positive bowel sounds Extremities: No edema noted bilateral lower legs. AV fistula left upper arm positive thrill and bruit Assessment & Plan Assessment/Plan (1) ESRD needing dialysis: (2) Intractable headache: (3) Hyperglycemia: (4) Hypertension: PLAN: Plan - ESRD on HD MWF: The patient was dialyzed on 09/04/2022, and she is now back on her usual outpatient MWF schedule. seen on HD today. - Anemia of chronic disease, hemoglobin is 12.7 g/dL today, which is above goal for ESRD patient. She does not need NOREEN at this time. - HTN: BP is controlled. 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
--- NOTE | 2022-09-07 11:35 | CASEMGMT ---
Ang Fregoso updated on pt plan change to go to [facility] at discharge and that plan will be to d/c to [facility] today and they will transfer pt to [facility] HD on 09/09/22, Bonnie galvans understanding. Alden BARRON CM
--- NOTE | 2022-09-07 12:29 | PCM.TXEXTCAR ---
Diet Diet Order/Speech Therapy: 09/01/22 16:14 Diet: Renal - ConsCHO - Kody Cont Food consistency:: Regular Liquid Consistency:: Regular/Thin Is pt able to select menu?: Yes Fluid restriction:: 1500 mL How many daily calories?: 1800 calorie Routine Orders/Code Status Suppository Type: Dulcolax 10mg Suppository Frequency: Daily PRN O2 Frequency: PRN Keep PO Greater than or Equal to (%): 92 Wound(s) l lateral foot 5 th digit: Wound Type: Amputation left lateral foot: Wound Type: dry blood blister Dressing Change: Mepilex Therapies Physical Therapy: Eval and Treat Occupational Therapy: Eval and Treat Problem/Diagnosis (1) Ischemic cerebrovascular accident (CVA): Status: Acute Code(s): I63.9 - Cerebral infarction, unspecified (2) ESRD needing dialysis: Status: Chronic Code(s): N18.6 - End stage renal disease; Z99.2 - Dependence on renal dialysis (3) Intractable headache: Status: Acute Code(s): R51.9 - Headache, unspecified (4) Hyperglycemia: Status: Acute Code(s): R73.9 - Hyperglycemia, unspecified (5) Hypertension: Status: Chronic Code(s): I10 - Essential (primary) hypertension Plan XOCHITL CHERRY, is a 47 F with a H insulin-dependent diabetes mellitus, left foot amputation in 2019, chronic kidney disease on dialysis, anxiety who presented to [facility] 09/01/2022 with a headache. It had been present 2 weeks prior to admission and had been admitted 2 weeks prior for the headache and was managed for migraines. The headache had not improved and became more severe so she represented to the hospital. 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 MRI showed a subacute right occipital CVA. She was started on aspirin, Plavix, high intensity statin. Echo and negative bubble study. She continued to have some changes in her vision and headache and MRV was performed but it was unremarkable. It was recommended that she take tramadol as needed and that she may need further outpatient management and was also recommended to follow-up outpatient with neurology. She continued dialysis while inpatient without difficulty. Ultimately physical therapy did recommend physical rehab prior to returning home and she was discharged 09/07/2022 to in stable condition. On the day of discharge she did report that she continued to have the headache, she was started on Fioricet and felt this is why her headache worsened but she did not get the tramadol. She reported some continued tingling in her left hand, overall improved since admission. Vision unchanged. Denied other complaints this morning, evaluated while on dialysis. Allergies/Procedures Done in Hospital Allergies lidocaine Allergy (Severe, Verified 08/18/22 17:09) Rash swelling bacitracin Allergy (Intermediate, Verified 08/18/22 17:09) blisters hydrogen peroxide Allergy (Intermediate, Verified 08/18/22 17:09) blisters isopropyl alcohol Allergy (Intermediate, Verified 08/18/22 17:09) blisters Sulfa (Sulfonamide Antibiotics) Allergy (Intermediate, Verified 08/18/22 17:09) Rash Bleach (Sodium Hypochlorite) Allergy (Verified 08/18/22 17:09) Hives insulin lispro [From Humalog U-100 Insulin] Allergy (Verified 08/19/22 05:46) Other Latex, Natural Rubber Allergy (Verified 08/18/22 17:09) Rash metformin Adverse Reaction (Verified 08/18/22 17:09) Vomiting neomycin [From Neosporin ([id number])] Adverse Reaction (Verified 08/18/22 17:09) NEEDS FOLLOW-UP polymyxin B [From Neosporin ([id number])] Adverse Reaction (Verified 08/18/22 17:09) NEEDS FOLLOW-UP Procedures: - (HD, MRI, 2D echo) Type of Care/Length of Stay Estimated LOS: Convalescent Care Less Than 30 days Type of Care Needed: Skilled Rehab Potential: Good Prognosis: Good Additional Orders/Day of Discharge Day of Discharge: 09/07/22 Dietary and Speech Recommendations Dietitian Recommendations/Changes: renal, 1800 calorie controlled consistent CHO fluid restriction as indicated will add daily wts Discharge Plan Admission Admit Date/Time: 09/02/22 11:17 Primary Reason for Your Visit: acute CVA, intractable migraine headache Attending Provider: Jennifer Tejada Primary Care Provider: Maddy Anaya Consulting Providers: Albino Nicole ; Selam Francisco Instructions Patient Instructions: Migraine Triggers, Risk Factors for Stroke, Migraine Headaches Ch Additional Instructions / Restrictions: ? 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 Additionally you are on 17 units of long-acting insulin and will need to continue this along with sliding scale ?You indicated the tramadol was helpful for your headache, you will be given 3-day prescription as needed, further pain control will need to be discussed with your outpatient physician -Please call your primary care provider's office upon discharge to schedule a hospital follow up within 1 week. -For any concerning signs or symptoms please call 911 or proceed to the nearest emergency department Discharge Orders/Prescriptions Prescriptions: New atorvastatin 40 mg Tablet 40 mg PO QHS Qty: 30 1RF clopidogrel 75 mg Tablet 75 mg PO DAILY Qty: 21 0RF tramadol 50 mg Tablet 50 mg PO Q12H PRN (Reason: Pain Score 1-10) 3 Days Qty: 6 0RF Continued aspirin 81 mg tablet,delayed release (DR/EC) 81 mg PO DAILY cetirizine 10 mg tablet 10 mg PO DAILY dicyclomine 10 mg capsule 10 mg PO BID pantoprazole 40 mg tablet,delayed release (DR/EC) 40 mg PO DAILY lamotrigine 50 mg tablet,disintegrating 50 mg PO DAILY bumetanide 1 mg tablet 1 mg PO DAILY losartan 50 mg tablet 50 mg PO DAILY tamsulosin 0.4 mg capsule 0.4 mg PO DAILY insulin aspart U-100 [Novolog Flexpen U-100 Insulin] 100 unit/mL (3 mL) insulin pen 6 - 10 unit subcut TID Label Comments: 150-200 : 6U 200-250: 12u 250-300: 18 u anything over 300: call MD Frankel FlexTouch U-100 Insuln 100 unit/mL (3 mL) insulin pen 17 unit subcut QHS Velphoro 500 mg tablet,chewable 500 mg PO TIDCM carvedilol 6.25 mg Tablet 6.25 mg PO BIDCM 30 Days Qty: 60 0RF sennosides-docusate sodium [Senexon-S] 8.6-50 mg tablet 1 - 2 tab PO DAILY Label Comments: TAKE 1-2 TABLETS BY MOUTH DAILY TO PREVENT CONSTIPATION ferrous sulfate [FeroSul] 325 mg (65 mg iron) tablet 325 mg PO MOWEFR Nephro-Chris 0.8 mg tablet 1 tab PO DAILY gabapentin 100 mg capsule 100 mg PO TID ergocalciferol (vitamin D2) 1,250 mcg (50,000 unit) capsule 1,250 mcg PO MOWEFR amlodipine 10 mg tablet 10 mg PO DAILY promethazine 25 mg tablet 25 mg PO Q6H PRN (Reason: NAUSEA/VOMITING) Discontinued atorvastatin 20 mg tablet 20 mg PO QHS oxycodone-acetaminophen [Percocet] 5-325 mg tablet 1 tab PO Q8H PRN (Reason: pain) 5 Days Qty: 14 0RF ibuprofen 400 mg tablet 400 mg PO Q6H PRN (Reason: headache) Qty: 20 0RF rizatriptan 10 mg tablet,disintegrating 10 mg PO UD PRN (Reason: Headache) Referrals / Follow Up: Maddy Anaya MD [Primary Care Provider] - Within 2 Weeks Albino Nicole MD [Med Staff - Consulting] - Within 1 Week Marcos Burgess MD [Non-Staff -Ordering Privileges] - Within 2 Weeks Disposition Disposition (needs filled in before D/C Order can be placed): Residential Facility
--- NOTE | 2022-09-07 12:51 | PCM.DC.SUM ---
Providers Date of Admission: 09/02/22 Date of Discharge: 09/07/22 Primary Care Physician: Dr. Maddy Anaya MD Consultations 09/01/22 18:05 Consult: Nephrology Routine Consulting Provider: Albino Nicole Reason for Consult: HD pt EMERGENT Consult: No MD Notified: Yes Date Notified: 09/01/22 Time Notified: 18:05 Method of Notification: Verbal Comments:: Dr Francisco notified Dr Hudson. 09/02/22 08:43 Consult: Onc/Wound/quill stripper Routine Comment: Reason for Consult:: wound to l lateral foot nonhealing Reason For Visit: headache, HYPERGLYCEMIA Diagnosis Discharge Diagnosis (1) Ischemic cerebrovascular accident (CVA): Status: Acute Code(s): I63.9 - Cerebral infarction, unspecified (2) ESRD needing dialysis: Status: Chronic Code(s): N18.6 - End stage renal disease; Z99.2 - Dependence on renal dialysis (3) Intractable headache: Status: Acute Code(s): R51.9 - Headache, unspecified (4) Hyperglycemia: Status: Acute Code(s): R73.9 - Hyperglycemia, unspecified (5) Hypertension: Status: Chronic Code(s): I10 - Essential (primary) hypertension Plan #Intractable headache and acute ischemic CVA #ESRD: #HTN #HPL #GERD #hyponatremia Medications at Discharge Home Medications aspirin 81 mg tablet,delayed release 81 mg PO DAILY HEART HEALTH 06/23/22 bumetanide 1 mg tablet 1 mg PO DAILY FLUID 06/23/22 cetirizine 10 mg tablet 10 mg PO DAILY ALLERGIES 06/23/22 dicyclomine 10 mg capsule 10 mg PO BID STOMACH 06/23/22 insulin aspart U-100 100 unit/mL (3 mL) subcutaneous pen (Novolog Flexpen U-100 Insulin aspart) 6 - 10 unit subcut TID DIABETES 06/23/22 insulin detemir U-100 100 unit/mL (3 mL) subcutaneous pen (Levemir FlexTouch U-100 Insulin) 17 unit subcut QHS DIABETES 06/23/22 lamotrigine 50 mg disintegrating tablet 50 mg PO DAILY MOOD 06/23/22 losartan 50 mg tablet 50 mg PO DAILY BLOOD PRESSURE 06/23/22 pantoprazole 40 mg tablet,delayed release 40 mg PO DAILY ACID REFLUX 06/23/22 tamsulosin 0.4 mg capsule 0.4 mg PO DAILY BLADDER 06/23/22 sucroferric oxyhydroxide 500 mg chewable tablet (Velphoro) 500 mg PO TIDCM kidney 08/19/22 carvedilol 6.25 mg tablet 6.25 mg PO BIDCM 30 days #60 tabs 08/21/22 amlodipine 10 mg tablet 10 mg PO DAILY BLOOD PRESSURE 09/01/22 ergocalciferol (vitamin D2) 1,250 mcg (50,000 unit) capsule 1,250 mcg PO MOWEFR SUPPLEMENT 09/01/22 ferrous sulfate 325 mg (65 mg iron) tablet (FeroSul) 325 mg PO MOWEFR SUPPLEMENT 09/01/22 gabapentin 100 mg capsule 100 mg PO TID NERVE PAIN 09/01/22 promethazine 25 mg tablet 25 mg PO Q6H PRN NAUSEA/VOMITING 09/01/22 sennosides 8.6 mg-docusate sodium 50 mg tablet (Senexon-S) 1 - 2 tab PO DAILY CONSTIPATION 09/01/22 vitamin B complex-vitamin C-folic acid 0.8 mg tablet (Nephro-Chris) 1 tab PO DAILY SUPPLEMENT 09/01/22 atorvastatin 40 mg tablet 40 mg PO QHS #30 tabs 09/04/22 clopidogrel 75 mg tablet 75 mg PO DAILY #21 tabs 09/04/22 tramadol 50 mg tablet 50 mg PO Q12H PRN Pain Score 1-10 3 days #6 tabs 09/07/22 Hospital Course Operations - (HD) Procedures 2-D Echocardiogram Summary of Care Provided Minutes Spent on Discharge: 32 Hospital Course: XOCHITL CHERRY, is a 47 F with a H insulin-dependent diabetes mellitus, left foot amputation in 2019, chronic kidney disease on dialysis, anxiety who presented to [facility] 09/01/2022 with a headache. It had been present 2 weeks prior to admission and had been admitted 2 weeks prior for the headache and was managed for migraines. The headache had not improved and became more severe so she represented to the hospital. 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 MRI showed a subacute right occipital CVA. She was started on aspirin, Plavix, high intensity statin. Echo and negative bubble study. She continued to have some changes in her vision and headache and MRV was performed but it was unremarkable. It was recommended that she take tramadol as needed and that she may need further outpatient management and was also recommended to follow-up outpatient with neurology. She continued dialysis while inpatient without difficulty. Ultimately physical therapy did recommend physical rehab prior to returning home and she was discharged 09/07/2022 to in stable condition. On the day of discharge she did report that she continued to have the headache, she was started on Fioricet and felt this is why her headache worsened but she did not get the tramadol. She reported some continued tingling in her left hand, overall improved since admission. Vision unchanged. Denied other complaints this morning, evaluated while on dialysis. Physical Exam Const alert and no apparent distress Constitutional Narrative: Oriented HEENT normocephalic and head/scalp atraumatic Eyes Eyes Narrative: EOM grossly intact, reported difficulty with far left-sided vision Neck supple Resp normal respiratory effort and clear to auscultation bilaterally Cardio regular rate and regular rhythm GI soft to palpation, non-tender and non-distended Extremity Extremity Narrative: No edema appreciated Neuro moves all extremities Neuro Narrative: No overt focal deficits appreciated Psych Psych Narrative: Cooperative Weight / BMI Weight Weight: 133.4 kg Body Mass Index (BMI) 44.9 ABG / Lab / Microbiology Data Result Diagrams: 09/07/22 04:55 09/07/22 04:55 Laboratory: Laboratory Results - last 24 hr 09/06/22 15:58: POC Glucose 295 H 09/06/22 21:55: POC Glucose 364 H 09/07/22 04:55: WBC 5.8, RBC 4.18 L, Hgb 12.9, Hct 39.7, MCV 95.0, MCH 30.9, MCHC 32.5, RDW Std Deviation 49.1 H, RDW Coeff of Juan 14.3, Plt Count 225, MPV 9.4, Immature Gran % (Auto) 0.500, Neut % (Auto) 48.5, Lymph % (Auto) 38.3, [place] % (Auto) 6.7, Eos % (Auto) 5.0, Baso % (Auto) 1.0, Absolute Neuts (auto) 2.8, Absolute Lymphs (auto) 2.23, Nucleated RBC % 0 12/05/22 04:55: Sodium 132 L, Potassium 4.6, Chloride 96 L, Carbon Dioxide 27.0, Anion Gap 9, BUN 53 H, Creatinine 5.32 H, Estim Creat Clear Calc 12.85, Est GFR (MDRD) Af Amer 11 L, Est GFR (MDRD) Non-Af 9 L, BUN/Creatinine Ratio 10.0, Glucose 292 H, Calcium 9.0 09/07/22 04:55: Phosphorus 6.5 H 09/07/22 06:32: POC Glucose 248 H D/C Instructions Discharge Diet: Low fat / Low cholesterol Weight Bearing Status: Weight bearing as tolerated Call your doctor if you observe: Fever of 101 or Higher, Shortness of breath and Swelling in the ankles Meaningful Use Info Meaningful Use Diagnoses (Choose all that apply): Ischemic CVA CVA Therapy Assessed for PT,OT and/or ST?: Yes Ischemic Stroke Antithrombotic order at d/c?: Yes Dx of Atrial fib/flutter?: No Statins at discharge?: Yes Primary Dx Acute Ischemic CVA?: Yes IV tPA ordered during stay?: No Reason IV t-PA not ordered: Medical Contraindication Discharge Plan Admission Admit Date/Time: 09/02/22 11:17 Primary Reason for Your Visit: acute CVA, intractable migraine headache Attending Provider: Jennifer Tejada Primary Care Provider: Maddy Anaya Consulting Providers: Albino Nicole ; Selam Francicso Instructions Patient Instructions: Migraine Triggers, Risk Factors for Stroke, Migraine Headaches Ch Additional Instructions / Restrictions: ? Please follow-up with neurology upon discharge ?Please continue dialysis as previously scheduled and continue to follow-up with your youth probation officer ?You will need to take aspirin and Plavix together for 21 days, at that time 1 of these agents can be discontinued at the discretion of your outpatient physician ?Your atorvastatin has also been increased to 40 mg which she will need to take daily ? Additionally you are on 17 units of long-acting insulin and will need to continue this along with sliding scale ?You indicated the tramadol was helpful for your headache, you will be given 3-day prescription as needed, further pain control will need to be discussed with your outpatient physician -Please call your primary care provider's office upon discharge to schedule a hospital follow up within 1 week. -For any concerning signs or symptoms please call 911 or proceed to the nearest emergency department Discharge Orders/Prescriptions Prescriptions: New atorvastatin 40 mg Tablet 40 mg PO QHS Qty: 30 1RF clopidogrel 75 mg Tablet 75 mg PO DAILY Qty: 21 0RF tramadol 50 mg Tablet 50 mg PO Q12H PRN (Reason: Pain Score 1-10) 3 Days Qty: 6 0RF Continued aspirin 81 mg tablet,delayed release (DR/EC) 81 mg PO DAILY cetirizine 10 mg tablet 10 mg PO DAILY dicyclomine 10 mg capsule 10 mg PO BID pantoprazole 40 mg tablet,delayed release (DR/EC) 40 mg PO DAILY lamotrigine 50 mg tablet,disintegrating 50 mg PO DAILY bumetanide 1 mg tablet 1 mg PO DAILY losartan 50 mg tablet 50 mg PO DAILY tamsulosin 0.4 mg capsule 0.4 mg PO DAILY insulin aspart U-100 [Novolog Flexpen U-100 Insulin] 100 unit/mL (3 mL) insulin pen 6 - 10 unit subcut TID Label Comments: 150-200 : 6U 200-250: 12u 250-300: 18 u anything over 300: call MD Marlys HelmTouch U-100 Insuln 100 unit/mL (3 mL) insulin pen 17 unit subcut QHS Velphoro 500 mg tablet,chewable 500 mg PO TIDCM carvedilol 6.25 mg Tablet 6.25 mg PO BIDCM 30 Days Qty: 60 0RF sennosides-docusate sodium [Senexon-S] 8.6-50 mg tablet 1 - 2 tab PO DAILY Label Comments: TAKE 1-2 TABLETS BY MOUTH DAILY TO PREVENT CONSTIPATION ferrous sulfate [FeroSul] 325 mg (65 mg iron) tablet 325 mg PO MOWEFR Nephro-Chris 0.8 mg tablet 1 tab PO DAILY gabapentin 100 mg capsule 100 mg PO TID ergocalciferol (vitamin D2) 1,250 mcg (50,000 unit) capsule 1,250 mcg PO MOWEFR amlodipine 10 mg tablet 10 mg PO DAILY promethazine 25 mg tablet 25 mg PO Q6H PRN (Reason: NAUSEA/VOMITING) Discontinued atorvastatin 20 mg tablet 20 mg PO QHS oxycodone-acetaminophen [Percocet] 5-325 mg tablet 1 tab PO Q8H PRN (Reason: pain) 5 Days Qty: 14 0RF ibuprofen 400 mg tablet 400 mg PO Q6H PRN (Reason: headache) Qty: 20 0RF rizatriptan 10 mg tablet,disintegrating 10 mg PO UD PRN (Reason: Headache) Referrals / Follow Up: Maddy Anaya MD [Primary Care Provider] - Within 2 Weeks Albino Nicole MD [Med Staff - Consulting] - Within 1 Week Marcos Burgess MD [Non-Staff -Ordering Privileges] - Within 2 Weeks Disposition Disposition (needs filled in before D/C Order can be placed): [facility] Facility Charges/Coding Visit Charges Inpatient E&M: 48948 Disch Hosp
--- NOTE | 2022-09-07 13:07 | DIALYSIS ---
hemodialysis completed x 4 hrs. Access via right chest hD cath. netUF 2800ml. pt janette well. See HD flowsheet on chart.
--- NOTE | 2022-09-07 13:10 | CASEMGMT ---
MAXWELL called patient's cousin Any and let her know [facility] accepted patient and she will go today. MAXWELL gave Any the address and phone number for [facility]. Convalescent was completed in [facility] system. Plan: d/c to [facility] under skilled level of care on a convalescent stay. Physicians will transport patient. Lacey John SHEEP HERDER MAYRA
[2022-09-07] MEDS: amLODIPine 10 MG Tablet PO (13:23)
[2022-09-07] MEDS: Losartan Potassium 50 MG Tablet PO (13:23)
[2022-09-07] MEDS: Enoxaparin 30 MG/0.3 ML Syringe SC (13:23)
[2022-09-07] MEDS: Ferrous Sulfate 325 MG Tablet PO (13:23)
[2022-09-07] MEDS: Bumetanide 0.5 MG Tablet 1 MG PO (13:23)
[2022-09-07] MEDS: Folic Acid/Vitamin B Comp W-C 1 Capsule 1 CAP PO (13:23)
[2022-09-07] MEDS: Pantoprazole Sodium 40 MG Tablet PO (13:23)
[2022-09-07] MEDS: lamoTRIgine 25 MG Tablet 50 MG PO (13:25)
[2022-09-07] MEDS: SUCROFERRIC OXYHYDROXIDE 500 MG TAB.CHEW PO (13:25)
[2022-09-07] MEDS: Aspirin E.C. 81 MG Tablet PO (13:26)
[2022-09-07] MEDS: Carvedilol 6.25 MG Tablet PO (13:26)
[2022-09-07] MEDS: Senna/Docusate Sodium 1 Tablet PO (13:26)
[2022-09-07] MEDS: Clopidogrel Bisulfate 75 MG Tablet PO (13:26)
--- NOTE | 2022-09-07 13:26 | CASEMGMT ---
MAXWELL went an e-mail to Courtney at [facility] letting her know that patient's medications when discharged from their facility need to be faxed to [facility]. MAXWELL provided phone number and fax number for [facility]. Lacey NUNEZ
--- NOTE | 2022-09-07 13:33 | CASEMGMT ---
Discharge Television Writer This mortgage loan underwriter sent d/c orders to [facility] [place] via [facility]. This mortgage loan underwriter set up Wheel Chair transportation with Physicians for a 3:00pm flower buncher or picker time. Nursing staff and patient made aware. Jaden ESPINOZA Filemaker Developer
--- NOTE | 2022-09-07 13:42 | PHA.DC.MR ---
Pharmacy Service has performed discharge medication reconciliation for this patient. The patient's discharge medication list was reviewed for discrepancies and discrepancies were resolved. Home Medications aspirin 81 mg tablet,delayed release 81 mg PO DAILY HEART HEALTH 06/23/22 bumetanide 1 mg tablet 1 mg PO DAILY FLUID 06/23/22 cetirizine 10 mg tablet 10 mg PO DAILY ALLERGIES 06/23/22 dicyclomine 10 mg capsule 10 mg PO BID STOMACH 06/23/22 insulin aspart U-100 100 unit/mL (3 mL) subcutaneous pen (Novolog Flexpen U-100 Insulin aspart) 6 - 10 unit subcut TID DIABETES 06/23/22 insulin detemir U-100 100 unit/mL (3 mL) subcutaneous pen (Levemir FlexTouch U-100 Insulin) 17 unit subcut QHS DIABETES 06/23/22 lamotrigine 50 mg disintegrating tablet 50 mg PO DAILY MOOD 06/23/22 losartan 50 mg tablet 50 mg PO DAILY BLOOD PRESSURE 06/23/22 pantoprazole 40 mg tablet,delayed release 40 mg PO DAILY ACID REFLUX 06/23/22 tamsulosin 0.4 mg capsule 0.4 mg PO DAILY BLADDER 06/23/22 sucroferric oxyhydroxide 500 mg chewable tablet (Velphoro) 500 mg PO TIDCM kidney 08/19/22 carvedilol 6.25 mg tablet 6.25 mg PO BIDCM 30 days #60 tabs 08/21/22 amlodipine 10 mg tablet 10 mg PO DAILY BLOOD PRESSURE 09/01/22 ergocalciferol (vitamin D2) 1,250 mcg (50,000 unit) capsule 1,250 mcg PO MOWEFR SUPPLEMENT 09/01/22 ferrous sulfate 325 mg (65 mg iron) tablet (FeroSul) 325 mg PO MOWEFR SUPPLEMENT 09/01/22 gabapentin 100 mg capsule 100 mg PO TID NERVE PAIN 09/01/22 promethazine 25 mg tablet 25 mg PO Q6H PRN NAUSEA/VOMITING 09/01/22 sennosides 8.6 mg-docusate sodium 50 mg tablet (Senexon-S) 1 - 2 tab PO DAILY CONSTIPATION 09/01/22 vitamin B complex-vitamin C-folic acid 0.8 mg tablet (Nephro-Chris) 1 tab PO DAILY SUPPLEMENT 09/01/22 atorvastatin 40 mg tablet 40 mg PO QHS #30 tabs 09/04/22 clopidogrel 75 mg tablet 75 mg PO DAILY #21 tabs 09/04/22 tramadol 50 mg tablet 50 mg PO Q12H PRN Pain Score 1-10 3 days #6 tabs 09/07/22
--- NOTE | 2022-09-07 14:25 | WOUNDNOTE ---
wound photo: left lateral foot
[2022-09-07 14:26] LABS: Bedside Glucose 323 mg/dL (74-106)
== END 2022-09-07 15:20 | disposition skilled nursing facility (03) | DRG 64 ==
LOC: ED 10:59 → PCU 11:36
PROVIDERS: Internal Medicine Nephrology; Admitting Provider Student in an Organized Health Care Education/Training Program; Emergency Provider Emergency Medicine; PCP Family Medicine; Visit Provider Internal Medicine
DX: I63.9 Cerebral infarction, unspecified (principal); N18.6 End stage renal disease; I12.0 Hypertensive chronic kidney disease with stage 5 chronic kidney disease or end stage renal disease; E87.1 Hypo-osmolality and hyponatremia; Z68.41 Body mass index [BMI] 40.0-44.9, adult; D63.1 Anemia in chronic kidney disease; E11.22 Type 2 diabetes mellitus with diabetic chronic kidney disease; I63.6 Cerebral infarction due to cerebral venous thrombosis, nonpyogenic; Z99.2 Dependence on renal dialysis; E66.01 Morbid (severe) obesity due to excess calories; E11.43 Type 2 diabetes mellitus with diabetic autonomic (poly)neuropathy; Z79.4 Long term (current) use of insulin; E11.40 Type 2 diabetes mellitus with diabetic neuropathy, unspecified; Z89.432 Acquired absence of left foot; E11.65 Type 2 diabetes mellitus with hyperglycemia; E78.5 Hyperlipidemia, unspecified; K31.84 Gastroparesis; K21.9 Gastro-esophageal reflux disease without esophagitis; G43.919 Migraine, unspecified, intractable, without status migrainosus; F41.9 Anxiety disorder, unspecified; J45.909 Unspecified asthma, uncomplicated; E86.0 Dehydration; H54.7 Unspecified visual loss; F32.A Depression, unspecified; Z20.822 Contact with and (suspected) exposure to COVID-19; Z79.82 Long term (current) use of aspirin; Z79.899 Other long term (current) drug therapy; Z87.891 Personal history of nicotine dependence
CPT/HCPCS: 36415; 70450; 70544; 70547; 70551; 70552; 80048; 80061; 82009; 82962; 83036; 84100; 85025; 85027; 87426; 90937; 93306; 93880; 94762; 97110; 97162; 97166; 97530; 97535; 97802; 97803; 99285; 99406; A9575; J7030; Q9957; A4216; G0257; J3030

== ENCOUNTER → 2022-09-16 | Outpatient (REF) | payer MEDICARE, MEDICAID, SELFPAY ==
[2022-09-16 10:01] LABS: Valproic Acid (Depakene) Level 12 ug/mL (50-100)
== END ==
LOC: OLS.WHLTCC 05:00
PROVIDERS: PCP Family Medicine; Visit Provider Nurse Practitioner Adult Health
DX: G43.909 Migraine, unspecified, not intractable, without status migrainosus (principal); I63.9 Cerebral infarction, unspecified; N18.6 End stage renal disease; M62.81 Muscle weakness (generalized); R26.2 Difficulty in walking, not elsewhere classified; R27.8 Other lack of coordination; Z99.2 Dependence on renal dialysis
CPT/HCPCS: 36415; 80164

== ENCOUNTER → 2022-09-18 | Outpatient (REF) | payer MEDICARE, MEDICAID, SELFPAY ==
[2022-09-18 08:31] LABS: Red Blood Cells-Urine 0 SEEN /hpf (0-5)
[2022-09-18 08:46] LABS: Color, Urine Yellow (Yellow); Glucose, Dipstick Normal (Normal); Ketone-Dipstick 5 mg/dl (Negative); Leukocyte Esterase-Dipstick 500 /ul (Negative); Nitrite-Dipstick Negative (Negative); Occult Blood-Urine Negative /ul (Negative); Protein-Dipstick 500 mg/dl (Negative); Urine Clarity Cloudy (Clear); Urine Urobilinogen Normal (Normal); Urine pH 6.5 (5.0 - 8.0)
[2022-09-18 08:48] LABS: Urine Bilirubin Dipstick 1 mg/dL (Negative)
[2022-09-18 09:03] LABS: Squamous Epithelial Cells - UA 5-10 SEEN /hpf (5-10); White Blood Cells 50-100 SEEN /hpf (0-5)
[2022-09-18 09:04] LABS: Bacteria 2+ /hpf (None Seen); Mucous, Urine RARE /hpf (<or=2+); Yeast-Urine 4+ /hpf (None Seen)
== END ==
LOC: OLS.WHLTCC 05:00
PROVIDERS: PCP Family Medicine; Visit Provider Internal Medicine
DX: I63.9 Cerebral infarction, unspecified (principal); N18.6 End stage renal disease; M62.81 Muscle weakness (generalized); R26.2 Difficulty in walking, not elsewhere classified; R27.8 Other lack of coordination; Z99.2 Dependence on renal dialysis
CPT/HCPCS: 81001; 87086; 87088

== ENCOUNTER → 2022-10-29 | Outpatient (CLI) | payer MEDICARE, MEDICAID, SELFPAY ==
--- NOTE | 2022-10-29 13:46 | AVDS_ITS ---
Reason For Study: stenosis, pain LEFT Inflow artery, 349.4/208.7 cm/sec. Inflow artery, 1568 ml/min. Proximal anastomosis, 731.0/462.7 cm/sec. Proximal anastomosis, 1512 ml/min. Proximal graft, 680.6/322.4cm/sec. Proximal graft, 8264 ml/min. Mid graft, 106.8/73.8 cm/sec. Mid graft, 1557 ml/min. Distal graft, 142.8/76.0 cm/sec. Distal graft, 1429 ml/min. Outflow vein, 153.8/96.8 cm/sec. Outflow vein, 1844 ml/min. Radial artery at wrist 81.4 cm/sec. Ulnar artery at wrist 84.0 cm/sec. VL/AV Fistula/Dialysis Graft Scan Interpretation Summary Patent left brachio-cephalic fistula with no stenosis visualized, but with dimi nished velocity distally. Adequate flow volumes throughout. Normal arterial waveforms in the distal arm indicating no significant steal at baseline. Ordering Physician: Tracie Camacho Performed By: Asaf Webb RVSherrie
== END | disposition home or self-care (01) ==
LOC: CVS 13:45
PROVIDERS: PCP Family Medicine; Referring Provider Physician Assistant; Visit Provider Physician Assistant
DX: T82.858A Stenosis of other vascular prosthetic devices, implants and grafts, initial encounter (principal); L98.8 Other specified disorders of the skin and subcutaneous tissue
CPT/HCPCS: 93990

== ENCOUNTER 2022-11-12 19:05 | Emergency (ER) | payer MEDICARE, MEDICAID, SELFPAY ==
[2022-11-12 19:07] VITALS: BP 207/82; PULSE 82; RESP 18; TEMP 35.8; O2SAT 100; BMI 46.3
[2022-11-12 19:52] VITALS: BP 188/77; PULSE 82; PULSE 83; RESP 18; TEMP 36.6; O2SAT 100
--- NOTE | 2022-11-12 20:28 | ED.VIS.GI ---
HPI HPI - GI History of Present Illness Chief Complaint: Nausea/Vomiting/Diarrhea Informant: patient Narrative Narrative: Patient presents with 3 different problems. First off, 1 week ago she accidentally dropped a container of sherbet on her left lower leg she accidentally dropped out of the freezer and she sustained an injury that really hurt bad. She states an hour after, she took a picture and it was all red and densely bruised and very painful. It has been 1 week, the redness has been improving, but the pain worsened today without any other injury. She denies any bleeding or breaking of the skin at the time of the injury. Secondly over the last 3 days or so, she has had burning dysuria and some lower abdominal discomfort consistent with a urinary tract infection that she has had before. She is a dialysis patient, she urinates, and she has had the same thing happened several times in the past. She last had dialysis day before yesterday and has not missed any. Thirdly, she states for the past 4 days or so, she has had epigastric pain that feels similar to when she had a stomach ulcer in the past, as well as nausea, some occasional vomiting, but more watery nonbloody diarrhea. She denies seeing any blood anywhere including her emesis. She denies any fevers or chills that she knows of. She has not been around anybody sick that she knows of with this. She is a diabetic. She is on a PPI and consistently taking it. [facility] Medical History Anxiety Asthma Fleming esophagus Blackout delivery delivered Chronic kidney disease Depression Dietary restriction Disc disorder ESRD needing dialysis FH: cholecystectomy Former smoker Gastric reflux High cholesterol History of CHF (congestive heart failure) History of Clostridium difficile infection History of edema History of ulceration Hypertension Hypertension Insulin dependent diabetes mellitus Left foot amputee (~2019) Low iron Migraine headache On home oxygen therapy Seasonal allergies Sleep apnea Stroke (~2021) Thyroid disease Uses wheelchair Vision impairment Walker as ambulation aid Wears glasses Home Medications aspirin 81 mg tablet,delayed release 81 mg PO DAILY HEART HEALTH 06/23/22 [History Last Taken 08/31/22] bumetanide 1 mg tablet 1 mg PO DAILY FLUID 06/23/22 [History Last Taken Unknown] cetirizine 10 mg tablet 10 mg PO DAILY ALLERGIES 06/23/22 [History Last Taken 08/31/22] dicyclomine 10 mg capsule 10 mg PO BID STOMACH 06/23/22 [History Last Taken 08/31/22] insulin aspart U-100 100 unit/mL (3 mL) subcutaneous pen (Novolog FlexPen U-100 Insulin aspart) 6 - 10 unit subcut TID DIABETES 06/23/22 [History Last Taken 08/31/22] lamotrigine 50 mg disintegrating tablet 50 mg PO DAILY MOOD 06/23/22 [History Last Taken 08/31/22] losartan 50 mg tablet 50 mg PO DAILY BLOOD PRESSURE 06/23/22 [History Last Taken 08/31/22] pantoprazole 40 mg tablet,delayed release 40 mg PO DAILY ACID REFLUX 06/23/22 [History Last Taken 08/31/22] tamsulosin 0.4 mg capsule 0.4 mg PO DAILY BLADDER 06/23/22 [History Last Taken Unknown] ergocalciferol (vitamin D2) 1,250 mcg (50,000 unit) capsule 1,250 mcg PO MOWEFR SUPPLEMENT 09/01/22 [History Last Taken Unknown] ferrous sulfate 325 mg (65 mg iron) tablet (FeroSul) 325 mg PO MOWEFR SUPPLEMENT 09/01/22 [History Last Taken Unknown] gabapentin 100 mg capsule 100 mg PO TID NERVE PAIN 09/01/22 [History Last Taken Unknown] promethazine 25 mg tablet 25 mg PO Q6H PRN NAUSEA/VOMITING 09/01/22 [History Last Taken Unknown] sennosides 8.6 mg-docusate sodium 50 mg tablet (Senexon-S) 1 - 2 tab PO DAILY CONSTIPATION 09/01/22 [History Last Taken 08/31/22] atorvastatin 40 mg tablet 40 mg PO QHS #30 tabs 09/04/22 [Rx Last Taken Unknown] cephalexin 500 mg capsule 500 mg PO Q12H #14 CAPSULES 11/12/22 [Rx Last Taken Unknown] dicyclomine 10 mg capsule 20 mg PO Q6H PRN PRN abdominal discomfort #14 CAPSULES 11/12/22 [Rx Last Taken Unknown] flash glucose sensor (FreeStyle Gissell 2 Sensor kit) #6 ea 11/12/22 [Rx Last Taken Unknown] insulin detemir U-100 100 unit/mL (3 mL) subcutaneous pen (Levemir FlexTouch U-100 Insulin) 22 unit subcut QHS DIABETES 11/12/22 [History Last Taken Unknown] promethazine 25 mg tablet 25 mg PO Q6H PRN PRN Nausea #10 TABLETS 11/12/22 [Rx Last Taken Unknown] sucralfate 100 mg/mL oral suspension 2 ml PO TID 11/12/22 [History Last Taken Unknown] Allergy/AdvReac Type Severity Reaction Status Date / Time lidocaine Allergy Severe Rash Verified 11/12/22 19:06 bacitracin Allergy Intermediate blisters Verified 11/12/22 19:06 hydrogen peroxide Allergy Intermediate blisters Verified 11/12/22 19:06 isopropyl alcohol Allergy Intermediate blisters Verified 11/12/22 19:06 Sulfa (Sulfonamide Allergy Intermediate Rash Verified 11/12/22 19:06 Antibiotics) Bleach (Sodium Hypochlorite) Allergy Hives Verified 11/12/22 19:06 insulin lispro Allergy Other Verified 11/12/22 19:06 [From Humalog U-100 Insulin] Latex, Natural Rubber Allergy Rash Verified 11/12/22 19:06 metformin AdvReac Vomiting Verified 11/12/22 19:06 neomycin AdvReac NEEDS Verified 11/12/22 19:06 [From Neosporin FOLLOW-UP ([id number])] polymyxin B AdvReac NEEDS Verified 11/12/22 19:06 [From Neosporin FOLLOW-UP ([id number])] Family History Other Arthritis Asthma CVA (cerebral vascular accident) Diabetes Heart disease High cholesterol Hypertension Kidney disease Osteoporosis Seizures Surgical History H/O left knee surgery H/O right knee surgery History of arteriovenostomy for renal dialysis History of bladder surgery History of History of cholecystectomy History of foot surgery History of liver biopsy History of lumpectomy of right breast History of shoulder surgery History of thoracentesis Hx of tonsillectomy Social History household members: family housing: house Smoking Status: Former smoker alcohol intake: never ROS ROS ED Constitutional Constitutional ED: Denies chills or fever(s) Eyes Eyes: Denies change in vision or diplopia ENT ENT ED: Denies rhinorrhea or sore throat Cardiovascular Cardiovascular: Denies chest pain or palpitations Respiratory/Chest Respiratory/Chest: Denies cough or dyspnea Gastrointestinal Gastrointestinal: Reports abdominal pain, diarrhea, nausea and vomiting Genitourinary Genitourinary ED: Reports dysuria and oliguria; Denies hematuria Musculoskeletal Musculoskeletal: Reports extremity pain and other Details: Chronic pain, deformity, disability left lower extremity due to ankle surgery, toe amputation, chronic wound and foot ; Denies back pain or neck pain Integumentary Denies abscess or rash Neurologic Neurologic: Denies headache(s), paresthesias or weakness Psychiatric Psychiatric: Denies anxiety or suicidal thoughts EXAM Physical Exam Const Vital Signs: 11/12/22 19:07 11/12/22 19:52 11/12/22 19:52 Temperature 96.4 F L 97.9 F Temperature Source Temporal Temporal Pulse Rate 82 83 82 Respiratory Rate 18 18 18 Blood Pressure 207/82 H 188/77 H Blood Pressure Mean 123 114 Pulse Ox 100 100 100 Oxygen Delivery Method Room Air Room Air Room Air 11/12/22 22:26 Temperature Temperature Source Pulse Rate 77 Respiratory Rate 18 Blood Pressure 166/85 H Blood Pressure Mean 112 Pulse Ox 98 Oxygen Delivery Method Room Air Positive well nourished, well developed and obese General Appearance ED: well developed and NAD Nutritional Appearance: obese HEENT Reports moist mucous membranes normocephalic and atraumatic Eyes PERRL and EOMs intact bilaterally Neck full ROM and supple Resp normal respiratory effort and clear to auscultation bilaterally Cardio regular rate, regular rhythm and no murmurs GI non-distended GI Narrative: Moderate tenderness in epigastrium without guarding or rebound or pulsatile mass, no other upper abdominal tenderness, except for very mild discomfort with palpation in both upper quadrants no Crowley's. Mild palpation tenderness suprapubic area. Auscultation: normoactive bowel sounds Palpation: soft Back/Spine no CVA tenderness General Back: other FROM Extremity Extremity Narrative: Tender blanching erythema anterior left lower leg surrounding what appears to be a large hematoma/contusion without any break in the skin or scab. No lymphangitis. There is a skin marking pen line around the redness that our nurse just made today prior to my examining the patient. The whole area is tender. When comparing this to the pictures of the patient shows me from 1 week ago, it is about half the size today. General Extremety ED: Yes edema and tenderness; Negative for pulses abnormal General Extremity: edema bilateral lower extremity Details: moderate; Negative for pulses abnormal Neuro oriented x3, CN's II-XII intact bilaterally and no sensory deficits noted Sensorium / Orientation: awake and alert Motor Exam: strength 5/5 throughout Skin Skin Narrative: Tender erythema left lower leg see above. No other rashes. No lymphangitis. Covered ulcerative wound distal lateral/peroneal left foot without signs of infection or discharge active. MDM MDM MDM Narrative Medical decision making narrative: Labs obtained as well as urine to evaluate this patient's multitude of complaints, in addition to 2 view x-ray series of the right lower leg/tib-fib. Those are negative for any acute CT interpretation radiology in agreement. Her labs show reassuring findings, she has chronic kidney disease which is not surprising given her dialysis status, her glucose is 596. She states it was 381 this morning, and she has not been using her insulin because she is not eating. She is allergic to the preservative in Humalog, she has her own pen of special preservative-free insulin with her, so we gave her 14 units of that. She was also given a dose of fentanyl for her leg and abdominal pain, as well as dicyclomine and she felt a lot better. Her urine is infected, we sent it for culture and treat her with Rocephin she is comfortable going home, will start her on cephalexin, and prescribe her dicyclomine to use as needed as well follow-up advised. Lab Data Attestation: I reviewed the patient's lab results. Labs: Laboratory Results - last 24 hr 11/12/22 11/12/22 11/12/22 20:30 20:50 20:50 WBC 6.4 RBC 3.48 L Hgb 11.1 L Hct 32.2 L MCV 92.5 MCH 31.9 MCHC 34.5 RDW Std Deviation 46.6 H RDW Coeff of Juan 13.9 Plt Count 301 MPV 9.8 Immature Gran % (Auto) 0.500 Neut % (Auto) 65.0 Lymph % (Auto) 24.6 Schley % (Auto) 6.7 Eos % (Auto) 2.0 Baso % (Auto) 1.2 H Absolute Neuts (auto) 4.2 Absolute Lymphs (auto) 1.58 Nucleated RBC % 0 Sodium 130 L Potassium 4.5 Chloride 91 L Carbon Dioxide 24.0 Anion Gap 15 BUN 26 H Creatinine 3.81 H Estim Creat Clear Calc 17.94 Est GFR (MDRD) Af Amer 16 L Est GFR (MDRD) Non-Af 14 L BUN/Creatinine Ratio 6.8 L Glucose 596 H* Calcium 9.7 Total Bilirubin 0.60 AST 11 L ALT 18 Alkaline Phosphatase 95 Total Protein 7.4 Albumin 3.3 Globulin 4.1 Albumin/Globulin Ratio 0.8 L Lipase 79 Urine Color Yellow Urine Clarity Cloudy Urine pH 6.0 Ur Specific [place] 1.015 Urine Protein 500 H Urine Glucose (UA) 1000 H Urine Ketones 50 H Urine Occult Blood 50 H Urine Nitrite Negative Urine Bilirubin Negative Urine Urobilinogen Normal Ur Leukocyte Esterase 500 H Urine RBC 0-5 SEEN Urine WBC >100 SEEN Ur Squamous Epith Cells 0-5 SEEN Urine Bacteria 2+ Urine Mucus 0 SEEN Urine Yeast 1+ Radiography Diagnostic Testing: Clinical Impression(s) from Imaging Studies Tibia/Fibula X-Ray 11/12/22 20:55 IMPRESSION: 1. Soft tissue swelling about the anterior lower leg. There is no acute osseous or articular abnormality. Electronically Signed: Panchito Thompson DO at 21:21 EST Reading Location ID and State: [address] [place] [address] Tel [phone], Service support , Discharge Plan Triage Chief Complaint: Nausea/Vomiting/Diarrhea Other Complaint: Abd Pain Cellulitis Complaint ED Provider: Param Potts Dx/Rx/DC Orders Clinical Impression: Nausea vomiting and diarrhea, Acute epigastric pain, UTI (urinary tract infection), Chronic kidney disease on chronic dialysis, Traumatic hematoma of left lower leg, Hyperglycemia due to type 2 diabetes mellitus Instructions: ED Contusion, Lower Extremity, ED Diet Vomiting Diarrhea Prescriptions: New dicyclomine 10 mg capsule 20 mg PO Q6H PRN PRN (Reason: abdominal discomfort) Qty: 14 0RF cephalexin [cephalexin] 500 mg capsule 500 mg PO Q12H Qty: 14 0RF promethazine [promethazine] 25 mg tablet 25 mg PO Q6H PRN PRN (Reason: Nausea) Qty: 10 0RF No Action aspirin 81 mg tablet,delayed release (DR/EC) 81 mg PO DAILY cetirizine 10 mg tablet 10 mg PO DAILY dicyclomine 10 mg capsule 10 mg PO BID pantoprazole 40 mg tablet,delayed release (DR/EC) 40 mg PO DAILY lamotrigine 50 mg tablet,disintegrating 50 mg PO DAILY bumetanide 1 mg tablet 1 mg PO DAILY losartan 50 mg tablet 50 mg PO DAILY tamsulosin 0.4 mg capsule 0.4 mg PO DAILY insulin aspart U-100 [Novolog FlexPen U-100 Insulin] 100 unit/mL (3 mL) insulin pen 6 - 10 unit subcut TID Label Comments: 150-200 : 6U 200-250: 12u 250-300: 18 u anything over 300: call MD Frankel FlexTouch U-100 Insuln 100 unit/mL (3 mL) insulin pen 22 unit subcut QHS sucralfate 100 mg/mL suspension 2 ml PO TID (DME) FreeStyle Gissell 2 Sensor Kit See Rx Instructions .Route Qty: 6 1RF Rx Instructions: As directed sennosides-docusate sodium [Senexon-S] 8.6-50 mg tablet 1 - 2 tab PO DAILY Label Comments: TAKE 1-2 TABLETS BY MOUTH DAILY TO PREVENT CONSTIPATION ferrous sulfate [FeroSul] 325 mg (65 mg iron) tablet 325 mg PO MOWEFR gabapentin 100 mg capsule 100 mg PO TID ergocalciferol (vitamin D2) 1,250 mcg (50,000 unit) capsule 1,250 mcg PO MOWEFR promethazine 25 mg tablet 25 mg PO Q6H PRN (Reason: NAUSEA/VOMITING) atorvastatin 40 mg Tablet 40 mg PO QHS Qty: 30 1RF Primary Care Provider: Maddy Anaya Referrals: Maddy Anaya MD [Primary Care Provider] - 3-5 Days if not improving Disposition Disposition: Home, Self Care
[2022-11-12] MEDS: fentaNYL 100 MCG/2 ML Ampul 50 MCG IV (20:35)
[2022-11-12] MEDS: Mag Hydrox/Al Hydrox/Simeth 30 ML UDC PO (20:35)
[2022-11-12 20:49] LABS: Mucous, Urine 0 SEEN /hpf (<or=2+)
[2022-11-12 20:55] LABS: Absolute Lymphocyte Count 1.58 X10^3/uL (0.83-4.51); Absolute Neutrophil Count 4.2 X10^3/uL (2.0-7.7); Basophil# 0.08 X10^3/uL; Basophil% 1.2 % (0-1); Eosinophil# 0.13 X10^3/uL; Hematocrit 32.2 % (37-47); Hemoglobin 11.1 g/dL (12.0-15.0); Lymphocyte # 1.58 X10^3/ul (0.83-4.51); Lymphocyte % 24.6 % (19-41); Mean Corp Hgb Conc 34.5 g/dL (32-36); Mean Corpuscular Hgb 31.9 pg (27.0-32.0); Mean Corpuscular Volume 92.5 fL (81-99); Mean Platelet Vol. 9.8 fl (6.2-12.0); Monocyte# 0.43 X10^3/uL; Monocyte% 6.7 % (0-10); NRBC Flagged by Analyzer 0 % (0-5); Neutrophil # 4.17 X10^3/uL (2.7-7.7); Platelet Count 301 K/mm3 (150-450); RBC Distribution Width CV 13.9 % (11.6-14.6); RBC Distribution Width SD 46.6 fl (35.1-43.9); Red Blood Count 3.48 M/mm3 (4.2-5.4); White Blood Count 6.4 K/mm3 (4.4-11.0)
--- NOTE | 2022-11-12 20:55 | RAD_ITS ---
STUDY: X-RAY - LEFT TIBIA AND FIBULA REASON FOR EXAM: Female, 47 years old. Injury. Pain and swelling in the anterior leg. Erythema. TECHNIQUE: AP and lateral view(s) of the tibia and fibula were obtained. COMPARISON: None. FINDINGS: There are 2 screws transfixing the tibial tuberosity. These are intact and satisfactory position. The tibia is otherwise unremarkable. Normal visualized fibula. Mild degenerative changes of the knee and ankle. There is soft tissue density and swelling along the anterior lower leg. RAD/Tibia & Fibula 2 Views IMPRESSION: 1. Soft tissue swelling about the anterior lower leg. There is no acute osseous or articular abnormality. Electronically Signed: Panchito Thompson DO at 21:21 EST ,
[2022-11-12 20:56] LABS: Color, Urine Yellow (Yellow); Glucose, Dipstick 1000 mg/dl (Normal); Ketone-Dipstick 50 mg/dl (Negative); Leukocyte Esterase-Dipstick 500 /ul (Negative); Nitrite-Dipstick Negative (Negative); Occult Blood-Urine 50 /ul (Negative); Protein-Dipstick 500 mg/dl (Negative); Specific Gravity, Urine 1.015 (1.002-1.030); Urine Bilirubin Dipstick Negative (Negative); Urine Clarity Cloudy (Clear); Urine Urobilinogen Normal (Normal)
[2022-11-12 21:02] LABS: Bacteria 2+ /hpf (None Seen); White Blood Cells >100 SEEN /hpf (0-5); Yeast-Urine 1+ /hpf (None Seen)
[2022-11-12 21:03] LABS: Red Blood Cells-Urine 0-5 SEEN /hpf (0-5); Squamous Epithelial Cells - UA 0-5 SEEN /hpf (5-10)
[2022-11-12 21:29] LABS: ALB/GLOB Ratio 0.8 RATIO (0.9-2.4); AST(SGOT) 11 U/L (15-37); Alanine Aminotransfer ALT/SGPT 18 U/L (13-56); Albumin, Serum 3.3 g/dL (3.2-5.0); Alkaline Phosphatase 95 U/L (45-117); Anion Gap 15 (5-15); BUN 26 mg/dL (7-18); BUN/Creat Ratio 6.8 RATIO (10-20); Calcium,Total 9.7 mg/dL (8.5-10.1); Chloride 91 mmol/L (98-107); Creatinine, Serum 3.81 mg/dL (0.55-1.02); EST Glomerular Filtration Rate 14 mL/min (>60); Est Glom Filt Rate - Afr Amer 16 mL/min (>60); Estimated Creatinine Clearance 17.94 ml/min; Globulin 4.1 g/dL (2.2-4.2); Glucose 596 mg/dL (74-106); Lipase 79 U/L (73-393); Potassium 4.5 mmol/L (3.5-5.1); Protein, Total 7.4 g/dL (6.4-8.2); Sodium Level 130 mmol/L (136-145)
[2022-11-12] MEDS: Ceftriaxone 1 GM/50 ML BAG IV (22:24)
[2022-11-12 22:26] VITALS: BP 166/85; PULSE 77; RESP 18; O2SAT 98
[2022-11-12 23:20] VITALS: BP 175/74; PULSE 72; RESP 18; TEMP 36.7; O2SAT 98
== END 2022-11-13 00:27 | disposition home or self-care (01) ==
PROVIDERS: Emergency Provider Emergency Medicine; PCP Family Medicine; Visit Provider Emergency Medicine
DX: R11.2 Nausea with vomiting, unspecified (principal); Z99.2 Dependence on renal dialysis; E11.65 Type 2 diabetes mellitus with hyperglycemia; E11.22 Type 2 diabetes mellitus with diabetic chronic kidney disease; N18.6 End stage renal disease; R19.7 Diarrhea, unspecified; R10.13 Epigastric pain; N39.0 Urinary tract infection, site not specified; M79.606 Pain in leg, unspecified; Z87.891 Personal history of nicotine dependence; S90.32XD Contusion of left foot, subsequent encounter; W20.8XXD Other cause of strike by thrown, projected or falling object, subsequent encounter
CPT/HCPCS: 73590; 80053; 81001; 83690; 85025; 87077; 87086; 87088; 87186; 96365; 96375; 99284; A4216

== ENCOUNTER → 2022-11-26 | Outpatient (CLI) | payer MEDICARE, MEDICAID, SELFPAY ==
--- NOTE | 2022-11-26 11:14 | VDLE_ITS ---
Reason For Study: Surgical planning RIGHT LEFT GSV junction, 0.58 x 0.57 cm. GSV junction, 0.52 x 0.52 cm. GSV prox thigh, 0.51 x 0.52 cm. GSV prox thigh, 0.51 x 0.51 cm. GSV mid thigh, 0.38 x 0.39 cm. GSV mid thigh, 0.38 x 0.38 cm. GSV distal thigh, 0.48 x 0.48 cm. GSV distal thigh, 0.42 x 0.40 cm. GSV knee, 0.49 x 0.50 cm. GSV knee, 0.37 x 0.37 cm. GSV prox calf, 0.19 x 0.21 cm. GSV prox calf, 0.31 x 0.29 cm. GSV mid calf, 0.35 x 0.33 cm. GSV mid calf, 0.34 x 0.33 cm. GSV distal calf, 0.26 x 0.28 cm. GSV distal calf, 0.33 x 0.33 cm. ASV prox calf, 0.38 x 0.39 cm. ASV mid thigh, 0.37 x 0.38 cm. ASV mid calf, 0.34 x 0.34 cm. ASV distal thigh, 0.53 x 0.52 cm. ASV distal calf, 0.26 x 0.28 cm. ASV knee, 0.41 x 0.42 cm. SSV prox, 0.39 x 0.38 cm. ASV prox calf, 0.51 x 0.51 cm. SSV mid, 0.31 x 0.33 cm. ASV mid calf, 0.39 x 0.47 SSV distal, 0.25 x 0.26 cm. SSV prox, 0.41 x 0.40 cm. SSV mid, 0.48 x 49 cm. GSV, ASV prox calf and SSV are compressible. SSV distal, 0.28 x 0.28 cm. Procedure This is a venous duplex using B-mode, color GSV, ASV mid thigh and SSV are compressible. flow and spectral Doppler. Exam performed in department. VL/Saphenous Vein Mapping, Bilat Interpretation Summary Right greater,accessory, and small saphenous veins patent with measurements abo ve. Left greater,accessory, and small saphenous veins patent with measurements abov e. Ordering Physician: Tracie Camacho Referring Physician: Maddy Anaya Performed By: Nita Goodwin RVT
== END | disposition home or self-care (01) ==
LOC: CVS 11:12
PROVIDERS: PCP Family Medicine; Referring Provider Physician Assistant; Visit Provider Physician Assistant
DX: M79.89 Other specified soft tissue disorders (principal); Z99.2 Dependence on renal dialysis; N18.6 End stage renal disease
CPT/HCPCS: 93970

== ENCOUNTER 2023-01-20 12:54 | Inpatient (IN) | payer MEDICARE, MEDICAID, SELFPAY ==
[2023-01-20] VITALS (9 sets, daily range): BP systolic 111–188; BP diastolic 54–108; PULSE 64–85; RESP 16–20; TEMP 35.8–37; O2SAT 95–100; BMI 43.4
--- NOTE | 2023-01-20 07:23 | SUR.PREOP ---
Very difficult IV start, patient states this is normal. Both Drs. Cooper & Wallace aware. Patient insists no chance of , refuses serum .
[2023-01-20] MEDS: Insulin Lispro 100 UNIT/ML INSULN.PEN 6 UNIT SC (07:36)
[2023-01-20 07:45] LABS: Bedside Glucose 358 mg/dL (74-106)
--- NOTE | 2023-01-20 07:56 | HP.PCM_ITS ---
HPI - General HPI Narrative XOCHITL CHERRY, is a 47 F who presents with left hand steal from cephalic AVF. Symptoms worse with HD session. No change since last seen in office. Paresthesias/pain and cold sensation. No wounds. Blood sugar poorly controlled, insurance will not pay for testing supplies. [facility] Medical History (Updated 01/20/23 @ 07:[address] Gregory Cooper MD) Anxiety Arthritis Asthma Fleming esophagus Blackout Bruising delivery delivered Chronic kidney disease Depression Dietary restriction Difficulty swallowing Disc disorder Easy bruising ESRD needing dialysis FH: cholecystectomy Former smoker Gastric reflux High cholesterol History of CHF (congestive heart failure) History of Clostridium difficile infection History of echocardiogram History of edema History of stress test History of ulceration Hypertension Hypertension Injury of head and neck Insulin dependent diabetes mellitus Left foot amputee (~2019) Left hand pain Loss of hearing Low iron Migraine headache On home oxygen therapy Seasonal allergies Shortness of breath on exertion Stroke (~2021) Syncope Thyroid disease Transitioned from acute care to home health care Uses wheelchair Vision impairment Walker as ambulation aid Wears glasses Home Medications aspirin 81 mg tablet,delayed release 81 mg PO DAILY HEART HEALTH 06/23/22 [History Last Taken 01/19/23] bumetanide 1 mg tablet 1 mg PO DAILY FLUID 06/23/22 [History Last Taken ] cetirizine 10 mg tablet 10 mg PO DAILY ALLERGIES 06/23/22 [History Last Taken 01/19/23] dicyclomine 10 mg capsule 10 mg PO BID STOMACH 06/23/22 [History Last Taken 01/19/23] insulin aspart U-100 100 unit/mL (3 mL) subcutaneous pen (Novolog FlexPen U-100 Insulin aspart) 6 - 10 unit subcut TID DIABETES 06/23/22 [History Last Taken 08/31/22] lamotrigine 50 mg disintegrating tablet 50 mg PO DAILY MOOD 06/23/22 [History Last Taken 01/20/23] losartan 50 mg tablet 75 mg PO DAILY BLOOD PRESSURE 06/23/22 [History Last Taken 01/20/23] pantoprazole 40 mg tablet,delayed release 40 mg PO DAILY ACID REFLUX 06/23/22 [History Last Taken 01/20/23] tamsulosin 0.4 mg capsule 0.4 mg PO QHS BLADDER 06/23/22 [History Last Taken 01/19/23] gabapentin 100 mg capsule 300 mg PO QHS NERVE PAIN 09/01/22 [History Last Taken 01/19/23] promethazine 25 mg tablet 25 mg PO Q6H PRN NAUSEA/VOMITING 09/01/22 [History Last Taken Unknown] sennosides 8.6 mg-docusate sodium 50 mg tablet (Senexon-S) 2 tab PO DAILY CONSTI PATION 09/01/22 [History Last Taken 01/17/23] atorvastatin 40 mg tablet 40 mg PO QHS #30 tabs 09/04/22 [Rx Last Taken 01/19/23] insulin detemir U-100 100 unit/mL (3 mL) subcutaneous pen (Levemir FlexTouch U- 100 Insulin) 26 unit subcut QHS DIABETES 11/12/22 [History Last Taken 01/19/23 13 UNITS] sucralfate 100 mg/mL oral suspension 2 ml PO TID 11/12/22 [History Last Taken 01/19/23] flash glucose sensor (EverZeroStyle Gissell 2 Sensor kit) #6 ea 11/26/22 [Rx Last Taken 01/19/23] B-complex with vitamin C 1 tab PO DAILY 01/07/23 [History Last Taken 01/19/23] albuterol 90 mcg/actuation aerosol inhaler 90 mcg inhalation PRN PRN SOB 01/07/23 [History Last Taken 01/19/23] albuterol sulfate 2.5 mg/3 mL (0.083 %) solution for nebulization 2.5 mg inhalation Q4H PRN SOB 01/07/23 [History Last Taken 01/19/23] sucroferric oxyhydroxide 500 mg chewable tablet (Velphoro) 500 mg PO TID 01/07/23 [History Last Taken 01/19/23] Allergy/AdvReac Type Severity Reaction Status Date / Time lidocaine Allergy Severe Rash Verified 01/07/23 09:19 bacitracin Allergy Intermediate blisters Verified 01/07/23 09:19 hydrogen peroxide Allergy Intermediate blisters Verified 01/07/23 09:19 isopropyl alcohol Allergy Intermediate blisters Verified 01/07/23 09:19 Sulfa (Sulfonamide Allergy Intermediate Rash Verified 01/07/23 09:19 Antibiotics) Bleach (Sodium Hypochlorite) Allergy Hives Verified 01/07/23 09:19 insulin lispro Allergy HIVES, Verified 01/20/23 06:49 [From Humalog U-100 Insulin] REDNESS Latex, Natural Rubber Allergy Rash Verified 01/07/23 09:19 metformin AdvReac Vomiting Verified 01/07/23 09:19 neomycin AdvReac HIVES, Verified 01/20/23 06:49 [From Neosporin REDNESS ([id number])] polymyxin B AdvReac HIVES, Verified 01/20/23 06:49 [From Neosporin REDNESS ([id number])] Family History Other Arthritis Asthma CVA (cerebral vascular accident) Diabetes Heart disease High cholesterol Hypertension Kidney disease Osteoporosis Seizures Surgical History (Updated 01/07/23 @ 10:00 by Montse Noland) H/O left knee surgery H/O right knee surgery History of arteriovenostomy for renal dialysis History of bladder surgery History of History of cholecystectomy History of foot surgery History of liver biopsy History of lumpectomy of right breast History of shoulder surgery History of thoracentesis Hx of tonsillectomy Social History household members: family housing: house Smoking Status: Former smoker alcohol intake: never ROS Constitutional Constitutional: Denies chills, fever(s), frequent falls, lethargy or weakness Eyes Eyes: Denies blind spots, change in vision or loss of vision ENT HEENT: Denies bleeding gums, hoarseness or sore throat Cardiovascular Cardiovascular: Denies abdominal pain, bluish discoloration of hand/feet, chest pain with activity, claudication, cold extremities, cyanosis, dyspnea on exertion, erythema on extremities, irregular heart rhythm, leg edema, leg ulcers, numbness in extremities or weakness in extremities Respiratory/Chest Respiratory/Chest: Denies cough, excessive phlegm production, shortness of breath at rest, shortness of breath with exertion or wheezing Gastrointestinal Gastrointestinal: Denies anorexia, change in stool character, constipation, di arrhea, melena or rectal bleeding Genitourinary Genitourinary: Denies dysuria or hematuria Musculoskeletal Musculoskeletal: Denies abnormal gait Integumentary Integumentary: Reports other Details: ; Denies erythema, non-healing lesions or wounds Neurologic Neurologic: Denies abnormal speech, focal weakness, headache(s), loss of vision, numbness, paresthesias or sensory deficit Hematologic/Lymphatic Hematologic/Lymphatic: Denies easy bleeding, easy bruising or lymphadenopathy Vital Signs Vital Signs Vital Signs: 01/20/23 07:00 01/20/23 07:00 Temperature 98.0 F Temperature Source Temporal Pulse Rate 72 Respiratory Rate 18 Respiratory Pattern Normal Blood Pressure 150/75 H Blood Pressure Mean 100 Blood Pressure Source Monitor Blood Pressure Position Semi-Fowlers Blood Pressure Location Right Arm Pulse Ox 100 Oxygen Delivery Method Room Air Weight Weight: 277 lb 12.519 oz Body Mass Index (BMI) 43.4 Physical Exam Const alert, oriented x3, no apparent distress and healthy appearing General Appearance: cooperative; Negative for combative or lethargic Orientation / Consciousness: awake Exam Limitations: no limitations HEENT Head and Scalp: normocephalic and atraumatic Eyes EOMs intact bilaterally General Eye: normal appearance of both eyes Neck full ROM General: trachea midline Resp normal respiratory effort and no use of accessory muscles Effort and Inspection: Negative for labored, stridor or audible wheezes Cardio regular rate and regular rhythm Back/Spine Cervical Spine: cervical ROM normal Extremity full ROM, normal capillary refill and no clubbing, cyanosis or edema Skin no rashes or lesions noted and no wounds Neuro oriented x3, CN's II-XII intact bilaterally, no focal motor deficits and no sensory deficits noted Psych thought process normal, cooperative, affect normal, speech normal and a ctivity/motor behavior normal Results Lab / Micro Data Labs: Laboratory Results - last 24 hr 01/20/23 06:46: POC Glucose 358 H Assessment & Plan Assessment/Plan (1) Steal syndrome as complication of dialysis access: PLAN: -DRIL; will preferably use left leg, eval with ultrasound in OR -post op will need HD Wednesday before DC -social work consult to see if potential help with diabetic supply issues
[2023-01-20] MEDS: Heparin Injection (Vial) 5,000 UNIT/ML VIAL 5000 UNIT (09:04)
[2023-01-20] MEDS: Bupivacaine 0.25% 30 ML Vial ×2 (09:04→12:30)
--- NOTE | 2023-01-20 13:05 | PCM.OPRPT ---
Report of Operation Date of Procedure: 01/20/23 Pre-Operative Diagnosis: left arm arteriovenous steal Post-Operative Diagnosis: same Surgery/Procedure Performed:: left arm distal revascularization interval ligation Description of Surgical Findings:: palpable radial/ulnar pulse Surgeon: Gregory Cooper Type of Anesthesia: General Estimated Blood Loss (mL): 200 Description of Procedure: HPI: Patient is a 47-year-old female with end-stage renal disease currently on dialysis via a left brachiocephalic fistula. She has developed worsening left hand steal symptoms, worse particularly with dialysis sessions. She had preoperative vein mapping which revealed satisfactory caliber saphenous vein and she is taken now for elective distal revascularization with interval ligation (DRIL). Description of procedure: Upon obtaining informed consent and verification correct patient procedure site patient was taken to the operating where she was placed under anesthesia. She was then positioned prepped and draped in usual sterile fashion a time was performed. Ultrasound used to evaluate the left thigh greater saphenous vein which was satisfactory caliber. Longitudinal incision was made overlying the saphenous vein and Bovie electrocautery was dissect down through subcutaneous tissue. Self-retaining retractor then put in position and further dissection carried down to the fascia which was incised and self-retaining retractors moved deeper in the wound. We then visualized the saphenous vein and sharp dissection used to dissect free the length of the vein for approximately 18 cm in length. Side branches were ligated with silk ties and divided and the vein was kept in continuity. The wound was packed with a wet sponge and attention turned to the upper extremity. Ultrasound was used to determine position of the prior arterial anastomosis is found to be in the distal brachial artery below the antecubital crease. He was in close proximity to the brachial bifurcation so the previous incision was selected as location for new exposure. First a longitudinal incision was made in the mid upper arm approximately 15 cm above the prior anastomosis. Bovie electrocautery was dissect down through subcutaneous tissue and self-retaining retractors put in position. Further dissection carried down along the fascia and the fascia was incised and self-retaining retractors moved deeper in the wound. Sharp dissection was used dissect down to the brachial artery with care taken to identify and protect all of the adjacent nerve and vein structures. Length of the brachial vein was dissected free and a right angle was placed vessel proximal and distal. Next we made a transverse incision distal to the antecubital crease and Bovie electrocautery to dissect down through the subcutaneous tissue which was mostly dense scar. Self-retaining retractors put in position and further dissection carried down to the level of the fascia which was also densely scarred. This was incised and self-retaining retractors were deepened in the wound. Sharp section then used to dissect following the fistula down towards its anastomosis and we have identified a brachial artery and its bifurcation distally in the surgical field. Sharp section used to dissect free the ulnar artery distally as well as the radial at the bifurcation and the brachial artery just above the bifurcation. A right angle was used to place around each of the vessels individually and a [place] tunneler was used to tunnel from the forearm incision to the upper arm incision. Patient was then heparinized and allowed to circulate for 3 minutes and serial ACT's were drawn for heparin redosing. The saphenous vein was ligated proximal and distal in the vein harvest and placed in heparinized saline. We then flushed with heparinized saline and sidebranches reinforced as needed. It was then marked to maintain orientation and the brachial artery occluded with Vesseloops in longitudinal arteriotomy created with 11 blade extended with [place] Leon scissors. The vein was then oriented in reverse fashion and beveled to match the arteriotomy and anastomosis performed using a 6-0 Prolene in a running fashion. After completing suture line vessels were backbled and the graft flushed and satisfactory stasis was noted. The graft was then occluded with a angled bulldog clamp, marked to maintain orientation and then secured to the tunneler and pulled through the distal incision. The brachial radial and ulnar arteries were then occluded with Vesseloops in longitudinal arteriotomy created on the proximal ulnar artery and extended with [place] Leon scissors. The vein was then cut the length and beveled to match the arteriotomy and anastomosis performed using 6-0 Prolene in a running fashion. Prior to completing suture line vessel backbled and after completing the suture line the clamps removed and satisfactory stasis was noted. There is a palpable pulse in the bypass graft as well as the radial ulnar artery and the surgical field and at the wrist. There continued to be a palpable thrill in the fistula the distal brachial artery just below the fistula anastomosis were then ligated with a silk tie. The patient was then reversed with 25 protamine and incision was inspected for hemostasis. The vein harvest was closed with 2-0 Vicryl, 3-0 Vicryl, 4 Monocryl and Dermabond for the skin followed by Prevena wound VAC. The brachial incision was closed with 3-0 Vicryl and 4 Monocryl and Dermabond. The forearm incision was closed with 3-0 Vicryl in interrupted nylon for the skin. Patient was then awakened anesthesia taken recovery room anticipated admission to the [facility].
--- NOTE | 2023-01-20 13:50 | SUR.PHASEI ---
DR. MILIAN MADE AWARE OF PATIENT HAVING PAIN IN HER LEFT OUTER CAMEJO. HE WAS ALSO MADE AWARE OF HER BP BEING 190'S SYSTOLLIC. HE ORDERED LABETALOL 10 MG IV X1 WHICH WAS GIVEN AND HE CAME OVER AND LOOKED AT HER LEG AND HE THOUGHT IT WAS FROM HER LEG BEING IN A FROG POSITION DURING THE PROCEDURE. PATIENT MADE AWARE OF THIS.
[2023-01-20] MEDS: Labetalol (Prefilled) 20 MG/4 ML 10 MG IV (14:01)
[2023-01-20 14:08] LABS: Anion Gap 7 (5-15); BUN 22 mg/dL (7-18); BUN/Creat Ratio 6.1 RATIO (10-20); Chloride 100 mmol/L (98-107); Creatinine, Serum 3.61 mg/dL (0.55-1.02); EST Glomerular Filtration Rate 14 mL/min (>60); Est Glom Filt Rate - Afr Amer 17 mL/min (>60); Estimated Creatinine Clearance 18.94 ml/min; Glucose 333 mg/dL (74-106); Potassium 4.2 mmol/L (3.5-5.1); Sodium Level 130 mmol/L (136-145)
[2023-01-20 14:13] LABS: hCG Titer Quant., Serum 8 mIU/mL (1-3)
[2023-01-20] MEDS: HEPARIN/D5w 25,000 UNITS 25,000 UNITS/250 ML IV.SOLN. 5 UNITS CONT INF (15:00)
[2023-01-20 15:25] LABS: Bedside Glucose 348 mg/dL (74-106)
--- NOTE | 2023-01-20 16:59 | NURSING ---
spoke with pharmacist and it is okay to run 0.4NS with Heparin infusing at the y-site
--- NOTE | 2023-01-20 17:24 | PN_ITS ---
Subjective Subjective Patient is a 47-year-old female who was admitted to the service of vascular surgery for left hand steal syndrome for cephalic aVF. Symptoms were apparently worsened by hemodialysis. She was admitted for left arm distal revascularization and interval ligation. Hospitalist service was consulted for medical management after surgery on account of poorly controlled diabetes. Patient was seen and examined after surgery. She had no complaints and felt well. Review of systems otherwise negative. Objective Data Objective Data Vital Signs: Vital Signs Temp Pulse Resp BP Pulse Ox O2 Del Method 96.5 F L 66 20 H 156/68 H 95 Room Air 01/20/23 14:36 01/20/23 14:36 01/20/23 14:36 01/20/23 14:36 01/20/23 14:36 01/20/23 15:35 Oxygen Delivery Method Room Air Weight: 277 lb 12.519 oz Body Mass Index (BMI) 43.4 Intake & Output: Intake and Output for Last 24 Hours 01/18/23 01/19/23 01/20/23 23:59 23:59 23:59 Intake Total 1115 / 1115 Balance 1115 / 1115 Lab / Micro Data Result Diagrams: 01/20/23 13:35 Labs: Laboratory Results - last 24 hr 01/20/23 06:46: POC Glucose 358 H 01/20/23 13:35: HCG, Quant 8 H 01/20/23 13:35: Sodium 130 L, Potassium 4.2, Chloride 100, Carbon Dioxide 23.0, Anion Gap 7, BUN 22 H, Creatinine 3.61 H, Estim Creat Clear Calc 18.94, Est GFR (MDRD) Af Amer 17 L, Est GFR (MDRD) Non-Af 14 L, BUN/Creatinine Ratio 6.1 L, Glucose 333 H, Calcium 9.0 01/20/23 14:43: POC Glucose 348 H Physical Exam Const alert, oriented x3 and no apparent distress General Appearance: cooperative HEENT normocephalic, head/scalp atraumatic and moist oral mucous membranes Eyes PERRL and EOMs intact bilaterally Neck supple and no JVD Lymph Lymphatic: no lymphadenopathy noted Resp normal respiratory effort, normal air movement and clear to auscultation bilaterally Cardio regular rate, regular rhythm, S1 normal heart sound, S2 normal heart sound and no murmurs GI normal to inspection, nondistended, normoactive bowel sounds, soft to palpation, non-tender and non-distended Extremity Extremity Narrative: LUE wrapped in bandage Skin General Skin Exam: no breakdown Neuro CN's II-XII intact bilaterally and no focal motor deficits Motor Exam: strength 5/5 throughout Psych thought process normal Appearance: appropriate Assessment & Plan Assessment/Plan (1) Steal syndrome as complication of dialysis access: (2) Type 2 diabetes mellitus: (3) ESRD needing dialysis: PLAN: Plan #LUE AV steal syndrome in setting of hemodialysis * s/p left arm distal revscularization and interval ligation * management as per primary team general surgery * #ESRD: On hemodialysis. Nephrology consulted #Type 2 diabetes mellitus with peripheral neuropathy: Glucose was 333. On insulin detemir 26 units nightly. On insulin sliding scale. Accu-Cheks ACHS. On gabapentin #Hypertension: On amlodipine #Hyponatremia: This is likely due to ESRD. Should improve with dialysis. #Hyper Lipidemia: On statin #History of CVA: On aspirin and statin #Seizure disorder: On lamotrigine DVT prophylaxis: as per primary team Thank you for the courtesy of the consult. We will continue to follow with you. Charges/Coding Visit Charges Inpatient E&M: 84463 Subs Hosp L2
[2023-01-20 17:30] LABS: Bedside Glucose 434 mg/dL (74-106)
[2023-01-20] MEDS: Acetaminophen 500 MG Tablet 1000 MG PO ×2 (17:34→20:58)
[2023-01-20] MEDS: Sucralfate 1 GM Tablet PO (17:34)
[2023-01-20] MEDS: 0.45% Normal Saline 1,000 ML 75 ML IV (17:35)
[2023-01-20] MEDS: Insulin Lispro 100 UNIT/ML INSULN.PEN SC ×2 (17:36→20:35)
[2023-01-20] MEDS: oxyCODONE 5 MG Tablet PO (18:20)
[2023-01-20] MEDS: Atorvastatin Calcium 40 MG Tablet PO (20:57)
[2023-01-20] MEDS: Dicyclomine 10 MG Capsule PO (20:57)
[2023-01-20] MEDS: SUCROFERRIC OXYHYDROXIDE 500 MG TAB.CHEW PO (20:59)
[2023-01-20] MEDS: Gabapentin 300 MG Capsule PO (21:01)
[2023-01-20] MEDS: Tamsulosin HCl 0.4 MG Capsule PO (21:01)
[2023-01-20] MEDS: HYDROmorphone 0.5 MG/0.5 ML SYRINGE IV (21:13)
[2023-01-20 21:40] LABS: Bedside Glucose 373 mg/dL (74-106)
[2023-01-21 00:24] VITALS: BP 112/53; PULSE 79; RESP 12; TEMP 36.6; O2SAT 93
[2023-01-21 00:30] VITALS: BP 112/53; PULSE 79; RESP 12; TEMP 36.6; O2SAT 98
[2023-01-21] MEDS: HYDROmorphone 0.5 MG/0.5 ML SYRINGE IV ×4 (00:42→15:34)
[2023-01-21] MEDS: 0.9% Saline Lock 10 ML Syringe IV ×4 (00:42→15:34)
[2023-01-21] MEDS: Menthol/Lanolin/Calamine/Znox 113 GM Tube 1 APPLIC TOPICAL ×3 (00:47→21:48)
[2023-01-21 03:55] VITALS: BP 115/59; PULSE 76; RESP 16; TEMP 36.6; O2SAT 96
[2023-01-21 05:27] VITALS: BMI 43.6
--- NOTE | 2023-01-21 05:41 | NURSING ---
per RT, patient uses simple face mask during night at home. RT explained to her that this type of face mask does not expel the CO2 enough and therefore is not safe for patient to use. Therefore, he put her on a venturi mask at 4L, 28% for night time.
[2023-01-21 06:19] LABS: Absolute Lymphocyte Count 1.81 X10^3/uL (0.83-4.51); Absolute Neutrophil Count 3.8 X10^3/uL (2.0-7.7); Basophil# 0.03 X10^3/uL; Basophil% 0.5 % (0-1); Eosinophil# 0.19 X10^3/uL; Hematocrit 31.2 % (37-47); Lymphocyte # 1.81 X10^3/ul (0.83-4.51); Lymphocyte % 29.1 % (19-41); Mean Corp Hgb Conc 32.1 g/dL (32-36); Mean Corpuscular Hgb 30.7 pg (27.0-32.0); Mean Corpuscular Volume 95.7 fL (81-99); Mean Platelet Vol. 9.7 fl (6.2-12.0); Monocyte# 0.36 X10^3/uL; Monocyte% 5.8 % (0-10); NRBC Flagged by Analyzer 0 % (0-5); Neutrophil # 3.81 X10^3/uL (2.7-7.7); Neutrophil % 61.1 % (47-70); Platelet Count 234 K/mm3 (150-450); RBC Distribution Width CV 14.8 % (11.6-14.6); RBC Distribution Width SD 51.2 fl (35.1-43.9); Red Blood Count 3.26 M/mm3 (4.2-5.4); White Blood Count 6.2 K/mm3 (4.4-11.0)
[2023-01-21] MEDS: Acetaminophen 500 MG Tablet 1000 MG PO ×3 (06:24→21:30)
[2023-01-21] MEDS: Sucralfate 1 GM Tablet PO ×2 (06:25→14:38)
[2023-01-21] MEDS: Insulin Lispro 100 UNIT/ML INSULN.PEN SC ×3 (06:35→21:43)
[2023-01-21 06:46] LABS: Partial Thromboplast Time 29.7 Seconds (24.1-36.2)
[2023-01-21] MEDS: oxyCODONE 5 MG Tablet PO ×3 (06:57→21:29)
[2023-01-21 07:00] LABS: Bedside Glucose 332 mg/dL (74-106)
[2023-01-21 07:02] LABS: Anion Gap 8 (5-15); BUN 29 mg/dL (7-18); BUN/Creat Ratio 7.1 RATIO (10-20); Calcium,Total 8.3 mg/dL (8.5-10.1); Chloride 100 mmol/L (98-107); Creatinine, Serum 4.11 mg/dL (0.55-1.02); EST Glomerular Filtration Rate 12 mL/min (>60); Est Glom Filt Rate - Afr Amer 15 mL/min (>60); Estimated Creatinine Clearance 16.63 ml/min; Glucose 360 mg/dL (74-106); Potassium 4.2 mmol/L (3.5-5.1); Sodium Level 131 mmol/L (136-145)
[2023-01-21 09:00] VITALS: BP 135/71; PULSE 75; RESP 16; TEMP 36.4; O2SAT 96
--- NOTE | 2023-01-21 10:25 | PCM.CONS.R ---
Assessment & Plan Assessment/Plan (1) Steal syndrome as complication of dialysis access: (2) ESRD needing dialysis: (3) Hypertension: (4) Anemia of chronic disease: PLAN: Plan - ESRD on hemodialysis Wednesday; patient last dialyzed on Wednesday at the kidney center. We will plan for dialysis today over 4 hours and attempt fluid removal as patient/blood pressure tolerates. Outpatient EDW 124.5 kg. Likely plan for dialysis again tomorrow to regularize dialysis schedule. -Left arm AV fistula with significant steal symptoms status post DRIL procedure. We will use tunneled HD catheter today for dialysis. Following with vascular. -Patient has history of anemia of chronic disease. Hemoglobin is 10. Patient receives NOREEN and iron at dialysis. We will monitor hemoglobin trends -Blood pressures are acceptable on losartan. Likely will see improvement in blood pressure with fluid removal with dialysis. HPI Consult Data Date of Consult: 01/21/23 HPI Narrative HPI Narrative: XOCHITL CHERRY, is a 47 F with past medical history significant for ESRD on hemodialysis Wednesday who was admitted to the hospital after undergoing DRIL surgery on the left arm AV fistula due to significant steal symptoms. Nephrology consulted for hemodialysis needs. Patient is complaining of left leg pain. Denies any other complaints. Her last dialysis was on Wednesday at the kidney center. [facility] Medical History (Updated 01/21/23 @ 10:28 by LOUISE Arreaga) Anxiety Arthritis Asthma Fleming esophagus Blackout Bruising delivery delivered Chronic kidney disease Depression Dietary restriction Difficulty swallowing Disc disorder Easy bruising ESRD needing dialysis FH: cholecystectomy Former smoker Gastric reflux High cholesterol History of CHF (congestive heart failure) History of Clostridium difficile infection History of echocardiogram History of edema History of stress test History of ulceration Hypertension Hypertension Injury of head and neck Insulin dependent diabetes mellitus Left foot amputee (~2019) Left hand pain Loss of hearing Low iron Migraine headache On home oxygen therapy Seasonal allergies Shortness of breath on exertion Stroke (~2021) Syncope Thyroid disease Transitioned from acute care to home health care Uses wheelchair Vision impairment Walker as ambulation aid Wears glasses Home Medications aspirin 81 mg tablet,delayed release 81 mg PO DAILY HEART HEALTH 06/23/22 [History Last Taken 01/19/23] bumetanide 1 mg tablet 1 mg PO DAILY FLUID 06/23/22 [History Last Taken 01/19/23] cetirizine 10 mg tablet 10 mg PO DAILY ALLERGIES 06/23/22 [History Last Taken 01/19/23] dicyclomine 10 mg capsule 10 mg PO BID STOMACH 06/23/22 [History Last Taken 01/19/23] insulin aspart U-100 100 unit/mL (3 mL) subcutaneous pen (Novolog FlexPen U-100 Insulin aspart) 6 - 10 unit subcut TID DIABETES 06/23/22 [History Last Taken 08/31/22] lamotrigine 50 mg disintegrating tablet 50 mg PO DAILY MOOD 06/23/22 [History Last Taken 01/20/23] losartan 50 mg tablet 75 mg PO DAILY BLOOD PRESSURE 06/23/22 [History Last Taken 01/20/23] pantoprazole 40 mg tablet,delayed release 40 mg PO DAILY ACID REFLUX 06/23/22 [History Last Taken 01/20/23] tamsulosin 0.4 mg capsule 0.4 mg PO QHS BLADDER 06/23/22 [History Last Taken 01/19/23] gabapentin 100 mg capsule 300 mg PO QHS NERVE PAIN 09/01/22 [History Last Taken 01/19/23] promethazine 25 mg tablet 25 mg PO Q6H PRN NAUSEA/VOMITING 09/01/22 [History Last Taken Unknown] sennosides 8.6 mg-docusate sodium 50 mg tablet (Senexon-S) 2 tab PO DAILY CONSTIPATION 09/01/22 [History Last Taken 01/17/23] atorvastatin 40 mg tablet 40 mg PO QHS #30 tabs 09/04/22 [Rx Last Taken 01/19/23] insulin detemir U-100 100 unit/mL (3 mL) subcutaneous pen (Levemir FlexTouch U-100 Insulin) 26 unit subcut QHS DIABETES 11/12/22 [History Last Taken 01/19/23 13 UNITS] sucralfate 100 mg/mL oral suspension 2 ml PO TID 11/12/22 [History Last Taken 01/19/23] flash glucose sensor (FreeStyle Gissell 2 Sensor kit) #6 ea 11/26/22 [Rx Last Taken 01/19/23] B-complex with vitamin C 1 tab PO DAILY 01/07/23 [History Last Taken 01/19/23] albuterol 90 mcg/actuation aerosol inhaler 90 mcg inhalation PRN PRN SOB 01/07/23 [History Last Taken 01/19/23] albuterol sulfate 2.5 mg/3 mL (0.083 %) solution for nebulization 2.5 mg inhalation Q4H PRN SOB 01/07/23 [History Last Taken 01/19/23] sucroferric oxyhydroxide 500 mg chewable tablet (Velphoro) 500 mg PO TID 01/07/23 [History Last Taken 01/19/23] Allergy/AdvReac Type Severity Reaction Status Date / Time lidocaine Allergy Severe Rash Verified 01/07/23 09:19 bacitracin Allergy Intermediate blisters Verified 01/07/23 09:19 hydrogen peroxide Allergy Intermediate blisters Verified 01/07/23 09:19 isopropyl alcohol Allergy Intermediate blisters Verified 01/07/23 09:19 Sulfa (Sulfonamide Allergy Intermediate Rash Verified 01/07/23 09:19 Antibiotics) Bleach (Sodium Hypochlorite) Allergy Hives Verified 01/07/23 09:19 insulin lispro Allergy HIVES, Verified 01/20/23 06:49 [From Humalog U-100 Insulin] REDNESS Latex, Natural Rubber Allergy Rash Verified 01/07/23 09:19 metformin AdvReac Vomiting Verified 01/07/23 09:19 neomycin AdvReac HIVES, Verified 01/20/23 06:49 [From Neosporin REDNESS ([id number])] polymyxin B AdvReac HIVES, Verified 01/20/23 06:49 [From Neosporin REDNESS ([id number])] Family History Other Arthritis Asthma CVA (cerebral vascular accident) Diabetes Heart disease High cholesterol Hypertension Kidney disease Osteoporosis Seizures Surgical History (Updated 01/07/23 @ 10:00 by Montse Noland) H/O left knee surgery H/O right knee surgery History of arteriovenostomy for renal dialysis History of bladder surgery History of History of cholecystectomy History of foot surgery History of liver biopsy History of lumpectomy of right breast History of shoulder surgery History of thoracentesis Hx of tonsillectomy Social History household members: family housing: house Smoking Status: Former smoker alcohol intake: never ROS ROS Narrative As in HPI Physical Exam Narrative Alert and oriented x3, no apparent distress S1, S2, RRR Lung sounds clear anteriorly and posteriorly. No wheezes, rhonchi or rales noted Abdomen soft, nontender, positive bowel sounds Tunneled HD catheter right chest dressing clean, dry and intact Left upper arm AV fistula dressing clean, dry and intact. Positive thrill and bruit Noted bilateral lower legs and feet Lab / Micro Data Result Diagrams: 01/21/23 05:30 01/21/23 05:30 Labs: Laboratory Results - last 24 hr 01/20/23 13:35: HCG, Quant 8 H 01/20/23 13:35: Sodium 130 L, Potassium 4.2, Chloride 100, Carbon Dioxide 23.0, Anion Gap 7, BUN 22 H, Creatinine 3.61 H, Estim Creat Clear Calc 18.94, Est GFR (MDRD) Af Amer 17 L, Est GFR (MDRD) Non-Af 14 L, BUN/Creatinine Ratio 6.1 L, Glucose 333 H, Calcium 9.0 01/20/23 14:43: POC Glucose 348 H 01/20/23 17:00: POC Glucose 434 H 01/20/23 20:39: POC Glucose 373 H 01/21/23 05:30: Sodium 131 L, Potassium 4.2, Chloride 100, Carbon Dioxide 23.0, Anion Gap 8, BUN 29 H, Creatinine 4.11 H, Estim Creat Clear Calc 16.63, Est GFR (MDRD) Af Amer 15 L, Est GFR (MDRD) Non-Af 12 L, BUN/Creatinine Ratio 7.1 L, Glucose 360 H, Calcium 8.3 L 01/21/23 05:30: WBC 6.2, RBC 3.26 L, Hgb 10.0 L, Hct 31.2 L, MCV 95.7, MCH 30.7, MCHC 32.1, RDW Std Deviation 51.2 H, RDW Coeff of Juan 14.8 H, Plt Count 234, MPV 9.7, Immature Gran % (Auto) 0.500, Neut % (Auto) 61.1, Lymph % (Auto) 29.1, Sampson % (Auto) 5.8, Eos % (Auto) 3.0, Baso % (Auto) 0.5, Absolute Neuts (auto) 3.8, Absolute Lymphs (auto) 1.81, Nucleated RBC % 0 01/21/23 05:30: APTT 29.7 01/21/23 06:30: POC Glucose 332 H
--- NOTE | 2023-01-21 11:06 | PN_ITS ---
Subjective Subjective Patient seen and examined. She still complains of pain in her RLE, below the knee. She is worried about her insulin leading to the dosage because she does not think it is controlling her blood sugars well. She also has a problem with the meal she received yesterday. Diet as she said that was full of food with carbohydrates and salt which is not good for her. She therefore ate some fast food that her cousin brought in for her. She expresses frustration with the fact that she has not been able to control his sugars well at home as she is in a tough living environment with 11 people living in the same house so it is difficult for her to prepare meals which will fit her diabetic diet. SHe was undergoing dialysis at time of review Objective Data Objective Data Vital Signs: Vital Signs Temp Pulse Resp BP Pulse Ox O2 Del Method O2 Flow Rate 97.5 F L 75 16 135/71 H 96 Room Air 4 01/21/23 09:00 01/21/23 09:00 01/21/23 09:00 01/21/23 09:00 01/21/23 09:00 01/21/23 09:00 01/21/23 03:55 Oxygen Flow Rate (L/min) 4 Oxygen Delivery Method Room Air Weight: 277 lb 12.519 oz Body Mass Index (BMI) 43.6 Intake & Output: Intake and Output for Last 24 Hours 01/19/23 01/20/23 01/21/23 23:59 23:59 23:59 Intake Total 1415 / 1615 1208.75 / 1208.75 Balance 1415 / 1615 1208.75 / 1208.75 Lab / Micro Data Result Diagrams: 01/21/23 05:30 01/21/23 05:30 Labs: Laboratory Results - last 24 hr 01/20/23 13:35: HCG, Quant 8 H 01/20/23 13:35: Sodium 130 L, Potassium 4.2, Chloride 100, Carbon Dioxide 23.0, Anion Gap 7, BUN 22 H, Creatinine 3.61 H, Estim Creat Clear Calc 18.94, Est GFR (MDRD) Af Amer 17 L, Est GFR (MDRD) Non-Af 14 L, BUN/Creatinine Ratio 6.1 L, Glucose 333 H, Calcium 9.0 01/20/23 14:43: POC Glucose 348 H 01/20/23 17:00: POC Glucose 434 H 01/20/23 20:39: POC Glucose 373 H 01/21/23 05:30: Sodium 131 L, Potassium 4.2, Chloride 100, Carbon Dioxide 23.0, Anion Gap 8, BUN 29 H, Creatinine 4.11 H, Estim Creat Clear Calc 16.63, Est GFR (MDRD) Af Amer 15 L, Est GFR (MDRD) Non-Af 12 L, BUN/Creatinine Ratio 7.1 L, Glucose 360 H, Calcium 8.3 L 01/21/23 05:30: WBC 6.2, RBC 3.26 L, Hgb 10.0 L, Hct 31.2 L, MCV 95.7, MCH 30.7, MCHC 32.1, RDW Std Deviation 51.2 H, RDW Coeff of Juan 14.8 H, Plt Count 234, MPV 9.7, Immature Gran % (Auto) 0.500, Neut % (Auto) 61.1, Lymph % (Auto) 29.1, Ritchie % (Auto) 5.8, Eos % (Auto) 3.0, Baso % (Auto) 0.5, Absolute Neuts (auto) 3.8, Absolute Lymphs (auto) 1.81, Nucleated RBC % 0 01/21/23 05:30: APTT 29.7 01/21/23 06:30: POC Glucose 332 H Physical Exam Const alert, oriented x3 and no apparent distress Constitutional Narrative: obese General Appearance: cooperative HEENT normocephalic, head/scalp atraumatic and moist oral mucous membranes Eyes PERRL and EOMs intact bilaterally Neck supple and no JVD Lymph Lymphatic: no lymphadenopathy noted Resp normal respiratory effort, normal air movement and clear to auscultation bilaterally Cardio regular rate, regular rhythm, S1 normal heart sound, S2 normal heart sound and no murmurs GI normal to inspection, nondistended, normoactive bowel sounds, soft to palpation, non-tender and non-distended Extremity Extremity Narrative: LUE wrapped in bandage; intact dressing over LLE inner thigh where graft was taken from. Has dialysis catheter in situ in chest Skin General Skin Exam: no breakdown Neuro CN's II-XII intact bilaterally and no focal motor deficits Motor Exam: strength 5/5 throughout Psych thought process normal Appearance: appropriate Assessment & Plan Assessment/Plan (1) Steal syndrome as complication of dialysis access: (2) Type 2 diabetes mellitus: (3) ESRD needing dialysis: PLAN: Plan #LUE AV steal syndrome in setting of hemodialysis * s/p left arm distal revscularization and interval ligation * management as per primary team general surgery * on heparin drip. * pain meds as per primary team * #ESRD: On hemodialysis. Nephrology on board. Having dialysis at time of review. #Type 2 diabetes mellitus with peripheral neuropathy: * On insulin detemir 26 units nightly. On insulin sliding scale. Accu-Cheks ACHS. On gabapentin * Patient is allergic to short acting insulin in the hospital. She says she has had 1 short acting insulin at home which she does not react to. She was asked yesterday to get her family to bring in the short acting insulin from home but she was not willing to do this as she said it would be inconvenient for her family. As such she was agreeable to taking the short acting insulin in the hospital she said is not every time that she reacts to it. * Blood sugars have been high so we will increase sliding scale to high-dose sliding scale. #Hypertension: On amlodipine #Hyponatremia:improved slightly to 131 today. Will monitor #Hyper Lipidemia: On statin #History of CVA: On aspirin and statin #Seizure disorder: On lamotrigine DVT prophylaxis: as per primary team Thank you for the courtesy of the consult. We will continue to follow with you. Charges/Coding Visit Charges Inpatient E&M: 96089 Subs Hosp L2
--- NOTE | 2023-01-21 11:50 | CASEMGMT ---
BEATRICE ESCALANTE Assessment: Face to Face with pt for initial transition planning/care coordination assessment. BEATRICE ESCALANTE introduced self and role at [facility], pt voices understanding and consents to assessment. Pt is A/O x4 and answers all questions appropriately at this time. Pt lying in bed with oxygen on in no distress receiving dialysis with dialysis nurse in room as well as nursing informatics specialist. Care providers, pharmacy, and demographics verified/updated. Admitting Dx: L arm distal revascularization and internal ligation PCP:Héctor Specialists:olivia Cooper; pt has upcoming appt with [place] neuro; jayjay Brady; pod in [place]; nephro from [facility] Preferred Pharmacy: [facility] Retail Insurance: [employer], [employer] Prescription Benefit: yes LNOK: Laura Lujan, cousin; Liliane Carbone dtr Living Arrangements: Pt lives with 11 people in a 3 story home with 4 steps to enter with grab bars. Pt states all but 3 members of the household are related to her. She states her steps is an issue in leaving the home but she cannot afford a ramp. Pt needs assistance with bathing but does her upper body on own and prefers not to ask family for assistance. Pt states she used to have a bath aide but they stopped coming. Pt is able to cook some and do dishes from her w/c. Other members of the household perform laundry and housekeeping tasks. Pt states she can ambulate when she needs to up to 20-30 ft when going out for appts. Transportation: Pt cousin transports pt to dialyisis and medical appts. DME/HHC/SNF: Pt has a jennifer lift, insulin and supplies, nebulizer, shower chair, electric w/c, manual w/c, FWW, hospital bed and oxygen through [facility] at . Pt does not have a BGM. She states that she cannot get the supplies through her insurance for her CGM. BEATRICE ESCALANTE to call and see if this can be resolved. Pt does not want a regular BGM if she cannot get the CGM covered. Pt aware of importance of checking blood sugars but still declines regular meter. Pt has had [facility] in the past. She states she is active with [facility] currently for SN. States PT just dc'd this week. Pt is interested in getting PT back as well as [employer]. Pt has been to [facility] in [place] as well as [facility]. Pt states no concerns with going home at time of dc. States she has enough help in the home. She wants to resume her HHC and does not want a list of other options. [facility] M/W/F at 1045 am. Pt reports she did have wounds but they have recently closed. Pt states no further concerns/needs. CM to follow. Advised pt to ask CM if any further question/concerns/needs arise, voices understanding. Pt Goal: Home with resumption of HHC Plan: Home with resumption of HHC, add PT, OT and [employer]. RN CM to check on CGM coverage, follow for change in oxygen rx.
[2023-01-21 12:51] LABS: Bedside Glucose 189 mg/dL (74-106)
--- NOTE | 2023-01-21 14:04 | CASEMGMT ---
Addendum entered by Marisa Modi 01/21/23 14:24: TC to [facility] to inquire on CGM. Aide rep states that pt was ordered the Freestyle on Nov 13 and then her prescriber Lindsay Hardy deactivated the rx on Nov 26. TC to [facility] in [place], spoke with rep who is requesting copies of pt insurance cards. States Medicare wants an insurance verification. Faxed pt insurance cards to [employer] at [phone]. Rep states to call back tomorrow to check on status. Original Note: [facility] at this time.
[2023-01-21] MEDS: Vitamin B Comp W-C Capsule 1 CAP PO (14:38)
[2023-01-21] MEDS: Aspirin E.C. 81 MG Tablet PO (14:38)
[2023-01-21] MEDS: Dicyclomine 10 MG Capsule PO ×2 (14:38→21:29)
[2023-01-21] MEDS: Senna/Docusate Sodium 1 Tablet 2 TABLET PO (14:38)
[2023-01-21] MEDS: Loratadine 10 MG Tablet PO (14:38)
[2023-01-21] MEDS: Pantoprazole Sodium 40 MG Tablet PO (14:38)
[2023-01-21] MEDS: Bumetanide 2 MG Tablet 1 MG PO (14:40)
[2023-01-21] MEDS: SUCROFERRIC OXYHYDROXIDE 500 MG TAB.CHEW PO ×2 (14:40→21:48)
[2023-01-21] MEDS: lamoTRIgine 100 MG Tablet 50 MG PO (14:41)
--- NOTE | 2023-01-21 14:42 | DIALYSIS ---
4 hours HD completed using CVC that is WNL. Uf 4000 ml. Patient tolerated well, except SBP 90's the majority of the treatment and limited fluid removal. Plan for HD tomorrow, 01/22, and use the AVF per vascular PA. see dialysis record.
--- NOTE | 2023-01-21 15:01 | NURSING ---
see dialysis documentation for vitals.
--- NOTE | 2023-01-21 16:16 | PCM.PN.SRG ---
Subjective Subjective Doing ok today, tolerated HD via catheter. Upper arm pain controlled, hand numbness unchanged. Left lateral calf pain most likely from OR positioning is her primary complaint. Linda diet. Requiring IV pain control still. Objective Data Objective Data A&O x 3, NAD RRR Resp non labored +brachial pulse, +radial/ulnar pulse (small caliber vessel) +thrill Vital Signs: Vital Signs Temp Pulse Resp BP Pulse Ox O2 Del Method O2 Flow Rate 97.5 F L 75 16 135/71 H 96 Room Air 4 01/21/23 09:00 01/21/23 09:00 01/21/23 09:00 01/21/23 09:00 01/21/23 09:00 01/21/23 09:00 01/21/23 03:55 Oxygen Flow Rate (L/min) 4 Oxygen Delivery Method Room Air Weight: 277 lb 12.519 oz Body Mass Index (BMI) 43.6 Intake & Output: Intake and Output for Last 24 Hours 01/19/23 01/20/23 01/21/23 23:59 23:59 23:59 Intake Total 1415 / 1615 1208.75 / 1208.75 Output Total 4000 / 4000 Balance 1415 / 1615 -2791.25 / -2791.25 Lab / Micro Data Result Diagrams: 01/21/23 05:30 01/21/23 05:30 Labs: Laboratory Results - last 24 hr 01/20/23 17:00: POC Glucose 434 H 01/20/23 20:39: POC Glucose 373 H 01/21/23 05:30: Sodium 131 L, Potassium 4.2, Chloride 100, Carbon Dioxide 23.0, Anion Gap 8, BUN 29 H, Creatinine 4.11 H, Estim Creat Clear Calc 16.63, Est GFR (MDRD) Af Amer 15 L, Est GFR (MDRD) Non-Af 12 L, BUN/Creatinine Ratio 7.1 L, Glucose 360 H, Calcium 8.3 L 01/21/23 05:30: WBC 6.2, RBC 3.26 L, Hgb 10.0 L, Hct 31.2 L, MCV 95.7, MCH 30.7, MCHC 32.1, RDW Std Deviation 51.2 H, RDW Coeff of Juan 14.8 H, Plt Count 234, MPV 9.7, Immature Gran % (Auto) 0.500, Neut % (Auto) 61.1, Lymph % (Auto) 29.1, Parker % (Auto) 5.8, Eos % (Auto) 3.0, Baso % (Auto) 0.5, Absolute Neuts (auto) 3.8, Absolute Lymphs (auto) 1.81, Nucleated RBC % 0 01/21/23 05:30: APTT 29.7 01/21/23 06:30: POC Glucose 332 H 01/21/23 12:30: POC Glucose 189 H Assessment & Plan Assessment/Plan (1) Steal syndrome as complication of dialysis access: PLAN: -hand warm, pulse in bypass, thrill in fistula -increase oxycodone to 10 mg -cont low dose heparin until DC -will use fistula tomorrow to determine if pain during use has resolved; if not will need to consider ligation -hopefully home tomorrow if pain controlled
[2023-01-21 16:45] LABS: Bedside Glucose 166 mg/dL (74-106)
[2023-01-21 20:14] VITALS: BP 124/54; PULSE 78; RESP 16; TEMP 36.7; O2SAT 91
[2023-01-21] MEDS: Gabapentin 300 MG Capsule PO (21:29)
[2023-01-21] MEDS: Atorvastatin Calcium 40 MG Tablet PO (21:31)
[2023-01-21] MEDS: Tamsulosin HCl 0.4 MG Capsule PO (21:31)
[2023-01-21 22:21] LABS: Bedside Glucose 259 mg/dL (74-106)
[2023-01-22] MEDS: oxyCODONE 5 MG Tablet PO ×5 (01:33→20:30)
[2023-01-22 02:10] VITALS: BP 127/60; PULSE 73; RESP 16; TEMP 36.6; O2SAT 97
[2023-01-22] MEDS: 0.9% Saline Lock 10 ML Syringe IV (04:20)
[2023-01-22] MEDS: HYDROmorphone 0.5 MG/0.5 ML SYRINGE IV (04:20)
--- NOTE | 2023-01-22 04:30 | NURSING ---
Tried to wean pt off of IV pain medication last night. Pt complained of pain throughout the shift and stated po oxy was not fully effective and her po oxy was not due for 1.5 hours. We gave one dose of 0.5 mg IV dilaudid for breakthrough pain late this am.
[2023-01-22 04:37] VITALS: BMI 43.4
[2023-01-22] MEDS: Sucralfate 1 GM Tablet PO ×3 (06:30→15:10)
[2023-01-22] MEDS: Acetaminophen 500 MG Tablet 1000 MG PO ×3 (06:30→22:22)
[2023-01-22] MEDS: Insulin Lispro 100 UNIT/ML INSULN.PEN SC ×2 (06:34→22:26)
[2023-01-22 06:55] LABS: Bedside Glucose 157 mg/dL (74-106)
[2023-01-22] MEDS: Dicyclomine 10 MG Capsule PO ×2 (07:17→22:22)
[2023-01-22 08:53] VITALS: BP 119/63; PULSE 73; RESP 18; TEMP 37; O2SAT 95
[2023-01-22 08:55] LABS: Absolute Lymphocyte Count 2.21 X10^3/uL (0.83-4.51); Absolute Neutrophil Count 3.4 X10^3/uL (2.0-7.7); Basophil# 0.05 X10^3/uL; Basophil% 0.8 % (0-1); Eosinophils% 4.6 % (0-5); Hematocrit 31.2 % (37-47); Hemoglobin 9.9 g/dL (12.0-15.0); Lymphocyte # 2.21 X10^3/ul (0.83-4.51); Lymphocyte % 34.2 % (19-41); Mean Corp Hgb Conc 31.7 g/dL (32-36); Mean Corpuscular Hgb 30.7 pg (27.0-32.0); Mean Corpuscular Volume 96.9 fL (81-99); Mean Platelet Vol. 9.9 fl (6.2-12.0); Monocyte# 0.51 X10^3/uL; Monocyte% 7.9 % (0-10); NRBC Flagged by Analyzer 0 % (0-5); Neutrophil # 3.37 X10^3/uL (2.7-7.7); Neutrophil % 52.2 % (47-70); Platelet Count 201 K/mm3 (150-450); RBC Distribution Width CV 14.8 % (11.6-14.6); RBC Distribution Width SD 52.3 fl (35.1-43.9); Red Blood Count 3.22 M/mm3 (4.2-5.4); White Blood Count 6.5 K/mm3 (4.4-11.0)
[2023-01-22] MEDS: Bumetanide 2 MG Tablet 1 MG PO (08:59)
[2023-01-22] MEDS: SUCROFERRIC OXYHYDROXIDE 500 MG TAB.CHEW PO (08:59)
[2023-01-22] MEDS: lamoTRIgine 100 MG Tablet 50 MG PO (09:00)
[2023-01-22] MEDS: Losartan Potassium 50 MG Tablet 75 MG PO (09:00)
[2023-01-22] MEDS: Vitamin B Comp W-C Capsule 1 CAP PO (09:00)
[2023-01-22] MEDS: Pantoprazole Sodium 40 MG Tablet PO (09:00)
[2023-01-22] MEDS: Aspirin E.C. 81 MG Tablet PO (09:01)
[2023-01-22] MEDS: Loratadine 10 MG Tablet PO (09:01)
[2023-01-22] MEDS: Menthol/Lanolin/Calamine/Znox 113 GM Tube 1 APPLIC TOPICAL (09:01)
[2023-01-22] MEDS: Senna/Docusate Sodium 1 Tablet 2 TABLET PO (09:01)
[2023-01-22 09:27] LABS: Anion Gap 5 (5-15); BUN 17 mg/dL (7-18); BUN/Creat Ratio 4.9 RATIO (10-20); Chloride 102 mmol/L (98-107); EST Glomerular Filtration Rate 15 mL/min (>60); Est Glom Filt Rate - Afr Amer 18 mL/min (>60); Estimated Creatinine Clearance 19.53 ml/min; Glucose 127 mg/dL (74-106); Potassium 3.7 mmol/L (3.5-5.1); Sodium Level 134 mmol/L (136-145)
--- NOTE | 2023-01-22 09:37 | PCM.PN.SRG ---
Subjective Subjective Patient is doing okay today. She tolerated HD via fistula without the hand pain/coldness she was experiencing previously. Hand numbness unchanged. She continues to complain of L lateral calf pain which is felt to be related to OR positioning, this is bothering her more than surgical site pain. She had dilaudid once early this morning, but none since. She thinks the muscle relaxer has helped some. PT recommended d/c to SNF for continued therapy. She is tolerating diet. Hemodynamically stable, hgb stable. No N/V, F/C. Objective Data Objective Data Vital Signs: Vital Signs Temp Pulse Resp BP Pulse Ox O2 Del Method O2 Flow Rate 98.6 F 73 18 119/63 95 Room Air 4 01/22/23 08:53 01/22/23 08:53 01/22/23 08:53 01/22/23 08:53 01/22/23 08:53 01/22/23 08:53 01/22/23 02:10 Oxygen Flow Rate (L/min) 4 Oxygen Delivery Method Room Air Weight: 276 lb 7.355 oz Body Mass Index (BMI) 43.4 Intake & Output: Intake and Output for Last 24 Hours 01/20/23 01/21/23 01/22/23 23:59 23:59 23:59 Intake Total 1415 / 1615 1408.75 / 1408.75 200 / 200 Output Total 4000 / 4000 Balance 1415 / 1615 -2591.25 / -2591.25 200 / 200 Lab / Micro Data Result Diagrams: 01/22/23 08:25 01/22/23 08:25 Labs: Laboratory Results - last 24 hr 01/21/23 12:30: POC Glucose 189 H 01/21/23 16:08: POC Glucose 166 H 01/21/23 21:42: POC Glucose 259 H 01/22/23 06:34: POC Glucose 157 H 01/22/23 08:25: WBC 6.5, RBC 3.22 L, Hgb 9.9 L, Hct 31.2 L, MCV 96.9, MCH 30.7, MCHC 31.7 L, RDW Std Deviation 52.3 H, RDW Coeff of Juan 14.8 H, Plt Count 201, MPV 9.9, Immature Gran % (Auto) 0.300, Neut % (Auto) 52.2, Lymph % (Auto) 34.2, [place] % (Auto) 7.9, Eos % (Auto) 4.6, Baso % (Auto) 0.8, Absolute Neuts (auto) 3.4, Absolute Lymphs (auto) 2.21, Nucleated RBC % 0 01/22/23 08:25: Sodium 134 L, Potassium 3.7, Chloride 102, Carbon Dioxide 27.0, Anion Gap 5, BUN 17, Creatinine 3.50 H, Estim Creat Clear Calc 19.53, Est GFR (MDRD) Af Amer 18 L, Est GFR (MDRD) Non-Af 15 L, BUN/Creatinine Ratio 4.9 L, Glucose 127 H, Calcium 8.0 L Physical Exam Const alert, oriented x3 and no apparent distress General Appearance: cooperative HEENT normocephalic, head/scalp atraumatic, hearing grossly normal bilaterally and external ears normal Eyes EOMs intact bilaterally General Eye: normal appearance of both eyes Resp normal respiratory effort, normal air movement, no retractions and no use of accessory muscles Effort and Inspection: able to speak in complete sentences; Negative for respiratory distress, labored, stridor or audible wheezes Cardio regular rate and regular rhythm Extremity Extremity Narrative: LUE surgical site dressings removed today. Proximal incision site with surgical glue intact, well-healing, no redness/focal swelling/drainage. Distal incision site with sutures intact, skin edges well approximated, no significant drainage/redness/focal swelling. palpable pulse in bypass, palpable thrill in fistula, hand warm Left thigh incision site with Prevena wound vac in place and maintaining good seal. Left lateral calf with no appreciable swelling, erythema, ecchymosis, deformity. There is a resolving ecchymosis anterior aspect left crockett, this occurred weeks ago per patient report. Neuro oriented x3, CN's II-XII intact bilaterally, moves all extremities and no focal motor deficits Speech: speech normal Psych mental status grossly normal Appearance: grossly normal Activity / Motor Behavior: appropriate eye contact Speech: normal speech Mood & Affect: euthymic mood Assessment & Plan Assessment/Plan (1) Steal syndrome as complication of dialysis access: PLAN: Patient is POD2 DRIL procedure. Patient's hand pain/coldness with dialysis has resolved. Fistula functioned without issue. Palpable pulse in bypass, palpable thrill in fistula. Incision sites with satisfactory appearance. L thigh incision site with vac dressing intact. Surgical site pain is well controlled. Left lateral calf pain is her primary complaint and this is felt to be due to positioning from surgery. This has been better controlled with addition of muscle relaxer. She is hemodynamically stable. She is tolerating diet. PT evaluation recommended d/c to SNF. Patient was agreeable with this and has been accepted at [facility]. Plan for discharge this evening or tomorrow morning to SNF.
[2023-01-22] MEDS: cycloBENZAPRine HCl 10 MG Tablet PO ×2 (09:44→17:01)
--- NOTE | 2023-01-22 10:22 | PCM.PN.REN ---
Subjective Subjective Resting quietly, no overnight events. States having pain left leg. Objective Data Objective Data Vital Signs: Vital Signs Temp Pulse Resp BP Pulse Ox O2 Del Method O2 Flow Rate 98.6 F 73 18 119/63 95 Room Air 4 01/22/23 08:53 01/22/23 08:53 01/22/23 08:53 01/22/23 08:53 01/22/23 08:53 01/22/23 08:53 01/22/23 02:10 Oxygen Flow Rate (L/min) 4 Oxygen Delivery Method Room Air Weight: 125.4 kg Body Mass Index (BMI) 43.4 Intake & Output: Intake and Output for Last 24 Hours 01/20/23 01/21/23 01/22/23 23:59 23:59 23:59 Intake Total 1415 / 1615 1408.75 / 1408.75 200 / 200 Output Total 4000 / 4000 Balance 1415 / 1615 -2591.25 / -2591.25 200 / 200 Lab / Micro Data Result Diagrams: 01/22/23 08:25 01/22/23 08:25 Labs: Laboratory Results - last 24 hr 01/21/23 12:30: POC Glucose 189 H 01/21/23 16:08: POC Glucose 166 H 01/21/23 21:42: POC Glucose 259 H 01/22/23 06:34: POC Glucose 157 H 01/22/23 08:25: WBC 6.5, RBC 3.22 L, Hgb 9.9 L, Hct 31.2 L, MCV 96.9, MCH 30.7, MCHC 31.7 L, RDW Std Deviation 52.3 H, RDW Coeff of Juan 14.8 H, Plt Count 201, MPV 9.9, Immature Gran % (Auto) 0.300, Neut % (Auto) 52.2, Lymph % (Auto) 34.2, [place] % (Auto) 7.9, Eos % (Auto) 4.6, Baso % (Auto) 0.8, Absolute Neuts (auto) 3.4, Absolute Lymphs (auto) 2.21, Nucleated RBC % 0 01/22/23 08:25: Sodium 134 L, Potassium 3.7, Chloride 102, Carbon Dioxide 27.0, Anion Gap 5, BUN 17, Creatinine 3.50 H, Estim Creat Clear Calc 19.53, Est GFR (MDRD) Af Amer 18 L, Est GFR (MDRD) Non-Af 15 L, BUN/Creatinine Ratio 4.9 L, Glucose 127 H, Calcium 8.0 L Physical Exam Narrative Alert and oriented x3, no apparent distress S1, S2, RRR Lung sounds clear anteriorly and posteriorly. No wheezes, rhonchi or rales noted Abdomen soft, nontender, positive bowel sounds Tunneled HD catheter right chest dressing clean, dry and intact Left upper arm AV fistula dressing clean, dry and intact. Positive thrill and bruit Edema noted bilateral lower legs and feet Assessment & Plan Assessment/Plan (1) Steal syndrome as complication of dialysis access: (2) ESRD needing dialysis: (3) Hypertension: (4) Anemia of chronic disease: PLAN: Plan - ESRD on hemodialysis Wednesday; patient tolerated dialysis yesterday with around 4 L fluid removal. We will plan for dialysis today, cannulating AV fistula per vascular request to determine if pain while using AVF has resolved and if hasn't resolved may consider ligation of AVF. Patient will dialyze today over 4 hours and attempt ~4L fluid removal as patient/blood pressure tolerates. Outpatient EDW 124.5 kg. -Left arm AV fistula with significant steal symptoms status post DRIL procedure. On IV heparin. Patient still has tunneled HD. Following with vascular. Getting Dilaudid and oxycodone for pain control. -Patient has history of anemia of chronic disease. Hemoglobin is 10. Patient receives NOREEN and iron at dialysis. We will monitor hemoglobin trends -Blood pressures are acceptable on losartan. Likely will see improvement in blood pressure with fluid removal with dialysis.
--- NOTE | 2023-01-22 10:38 | CASEMGMT ---
Addendum entered by Marisa Modi 01/22/23 15:39: Notified pt [facility] that pt will dc to [place] after this hospital stay. Addendum entered by Marisa Modi 01/22/23 10:47: Therapy spoke with BEATRICE ESCALANTE, they are recommending SNF for pt. BEATRICE ESCALANTE into pt room, pt on the phone with her cousin. She is aware that the CGM is approved and can be picked up. Also discussed with pt that therapy is recommending a SNF. Pt tearful and states her cousin feels she needs to go to a SNF as well. She does not feel she can do the steps to get into and out of the house. Pt states she would go to [facility] but only there. She is aware that there is a SNF that does dialysis on site but she does not want to go there. Linnette ICU STAFF NURSE from nephro in room as well. Updated SW. Original Note: TC to [facility], spoke with Dionisio, he states that pt can sweet pickle maker her Freestyle Gissell CGM today as it did go through the insurance now. Pt has no cost and the rx is for a month's supply.
[2023-01-22 10:58] VITALS: O2SAT 95
--- NOTE | 2023-01-22 11:26 | CASEMGMT ---
Discharge Planning Referral sent to [facility] per patient request. Flores Gomez
[2023-01-22] MEDS: proMETHazine 25 MG Tablet PO (11:27)
--- NOTE | 2023-01-22 11:44 | CASEMGMT ---
Social Work Per RNCM pt is requesting to go to [facility]. Pt informed RNCM that she has been to [facility] before and this is the only facility she is willing to go to. Discharge academic support assistant updated and to send referral. Plan: [facility], pending acceptance ANSELMO Magallanes
--- NOTE | 2023-01-22 12:46 | PN_ITS ---
Subjective Subjective Patient seen and examined. She still complains of pain in her leg. She still says she has not passed urine. Review of systems otherwise negative. Objective Data Objective Data Vital Signs: Vital Signs Temp Pulse Resp BP Pulse Ox O2 Del Method O2 Flow Rate 98.6 F 73 18 119/63 95 Room Air 4 01/22/23 08:53 01/22/23 08:53 01/22/23 08:53 01/22/23 08:53 01/22/23 10:58 01/22/23 10:58 01/22/23 02:10 Oxygen Flow Rate (L/min) 4 Oxygen Delivery Method Room Air Weight: 276 lb 7.355 oz Body Mass Index (BMI) 43.4 Intake & Output: Intake and Output for Last 24 Hours 01/20/23 01/21/23 01/22/23 23:59 23:59 23:59 Intake Total 1415 / 1615 1408.75 / 1408.75 200 / 200 Output Total 4000 / 4000 600 / 600 Balance 1415 / 1615 -2591.25 / -2591.25 -400 / -400 Lab / Micro Data Result Diagrams: 01/22/23 08:25 01/22/23 08:25 Labs: Laboratory Results - last 24 hr 01/21/23 12:30: POC Glucose 189 H 01/21/23 16:08: POC Glucose 166 H 01/21/23 21:42: POC Glucose 259 H 01/22/23 06:34: POC Glucose 157 H 01/22/23 08:25: WBC 6.5, RBC 3.22 L, Hgb 9.9 L, Hct 31.2 L, MCV 96.9, MCH 30.7, MCHC 31.7 L, RDW Std Deviation 52.3 H, RDW Coeff of Juan 14.8 H, Plt Count 201, MPV 9.9, Immature Gran % (Auto) 0.300, Neut % (Auto) 52.2, Lymph % (Auto) 34.2, [place] % (Auto) 7.9, Eos % (Auto) 4.6, Baso % (Auto) 0.8, Absolute Neuts (auto) 3.4, Absolute Lymphs (auto) 2.21, Nucleated RBC % 0 01/22/23 08:25: Sodium 134 L, Potassium 3.7, Chloride 102, Carbon Dioxide 27.0, Anion Gap 5, BUN 17, Creatinine 3.50 H, Estim Creat Clear Calc 19.53, Est GFR (MDRD) Af Amer 18 L, Est GFR (MDRD) Non-Af 15 L, BUN/Creatinine Ratio 4.9 L, Glucose 127 H, Calcium 8.0 L Physical Exam Const alert, oriented x3 and no apparent distress Constitutional Narrative: obese General Appearance: cooperative HEENT normocephalic, head/scalp atraumatic and moist oral mucous membranes Eyes PERRL and EOMs intact bilaterally Neck no lymphadenopathy, supple and no JVD Lymph Lymphatic: no lymphadenopathy noted Resp normal respiratory effort, normal air movement and clear to auscultation bilaterally Cardio regular rate, regular rhythm, S1 normal heart sound, S2 normal heart sound and no murmurs GI normal to inspection, nondistended, normoactive bowel sounds, soft to palpation, non-tender and non-distended Extremity Extremity Narrative: surgical site on left inner forearm healing well. intact dressing over LLE inner thigh where graft was taken from. Has dialysis catheter in situ in chest Skin General Skin Exam: no breakdown Neuro CN's II-XII intact bilaterally and no focal motor deficits Motor Exam: strength 5/5 throughout Psych thought process normal Appearance: appropriate Assessment & Plan Assessment/Plan (1) Steal syndrome as complication of dialysis access: (2) Type 2 diabetes mellitus: (3) ESRD needing dialysis: PLAN: Plan #LUE AV steal syndrome in setting of hemodialysis * s/p left arm distal revscularization and interval ligation * management as per primary team general surgery * on heparin drip. * pain meds as per primary team * #ESRD: On hemodialysis. Nephrology on board. Having dialysis at time of review. #Type 2 diabetes mellitus with peripheral neuropathy: * On insulin detemir 26 units nightly. On insulin sliding scale. Accu-Cheks ACHS. On gabapentin * Patient is allergic to short acting insulin in the hospital. She says she has had 1 short acting insulin at home which she does not react to. She was asked yesterday to get her family to bring in the short acting insulin from home but she was not willing to do this as she said it would be inconvenient for her family. As such she was agreeable to taking the short acting insulin in the hospital she said is not every time that she reacts to it. * Blood sugars have been high so we will increase sliding scale to high-dose sliding scale. #Hypertension: On amlodipine #Hyponatremia:resolving. Sodium is 134 today. #HyperLipidemia: On statin #History of CVA: On aspirin and statin #Seizure disorder: On lamotrigine DVT prophylaxis: as per primary team Thank you for the courtesy of the consult. We will continue to follow with you. Charges/Coding Visit Charges Inpatient E&M: 74143 Subs Hosp L2
[2023-01-22] MEDS: HEPARIN/D5w 25,000 UNITS 25,000 UNITS/250 ML IV.SOLN. 5 UNITS CONT INF (15:04)
--- NOTE | 2023-01-22 15:11 | NURSING ---
Addendum entered by Jessica Gutierrez 01/22/23 15:15: dialysis nurse monitoring Left arm/hand since fistula being used today for first time. Original Note: see dialysis documentation for vitals
--- NOTE | 2023-01-22 16:00 | CASEMGMT ---
Social Work [facility] able [facility] accept pt. PA updated and will decide if pt is ready for d/c once pt is seen later today. SW met with pt to update but she is sleeping soundly. Nurse updated and will inform pt when she awakes. Plan: [facility], when medically ready ANSELMO Magallanes
--- NOTE | 2023-01-22 16:49 | PCM.DC.SUM ---
Providers Date of Admission: 01/20/23 Date of Discharge: 01/22/23 Primary Care Physician: Dr. Maddy Anaya MD Consultations 01/20/23 14:29 Consult: Hospitalist Routine Consulting Provider: David Brown Reason for Consult: poorly controlled DM EMERGENT Consult: No Notified: Yes Date Notified: 01/20/23 Time Notified: 16:23 Method of Notification: via spok Consult: Nephrology Routine Consulting Provider: Albino Nicole Reason for Consult: ESRD on HD EMERGENT Consult: No Notified: Yes Date Notified: 01/20/23 Time Notified: 16:21 Method of Notification: via answering service Reason For Visit: L ARM DISTAL REVASCULARIZATION AND INTERNAL LIGATI Diagnosis Discharge Diagnosis (1) Steal syndrome as complication of dialysis access: Status: Acute Code(s): T82.898A - Other specified complication of vascular prosthetic devices, implants and grafts, initial encounter Medications at Discharge Home Medications aspirin 81 mg tablet,delayed release 81 mg PO DAILY HEART HEALTH 06/23/22 bumetanide 1 mg tablet 1 mg PO DAILY FLUID 06/23/22 cetirizine 10 mg tablet 10 mg PO DAILY ALLERGIES 06/23/22 dicyclomine 10 mg capsule 10 mg PO BID STOMACH 06/23/22 insulin aspart U-100 100 unit/mL (3 mL) subcutaneous pen (Novolog FlexPen U-100 Insulin aspart) 6 - 10 unit subcut TID DIABETES 06/23/22 lamotrigine 50 mg disintegrating tablet 50 mg PO DAILY MOOD 06/23/22 losartan 50 mg tablet 75 mg PO DAILY BLOOD PRESSURE 06/23/22 pantoprazole 40 mg tablet,delayed release 40 mg PO DAILY ACID REFLUX 06/23/22 tamsulosin 0.4 mg capsule 0.4 mg PO QHS BLADDER 06/23/22 promethazine 25 mg tablet 25 mg PO Q6H PRN NAUSEA/VOMITING 09/01/22 sennosides 8.6 mg-docusate sodium 50 mg tablet (Senexon-S) 2 tab PO DAILY CONSTIPATION 09/01/22 atorvastatin 40 mg tablet 40 mg PO QHS #30 tabs 09/04/22 insulin detemir U-100 100 unit/mL (3 mL) subcutaneous pen (Levemir FlexTouch U-100 Insulin) 26 unit subcut QHS DIABETES 11/12/22 sucralfate 100 mg/mL oral suspension 2 ml PO TID 11/12/22 flash glucose sensor (FreeStyle Gsisell 2 Sensor kit) #6 ea 11/26/22 B-complex with vitamin C 1 tab PO DAILY 01/07/23 albuterol 90 mcg/actuation aerosol inhaler 90 mcg inhalation PRN PRN SOB 01/07/23 albuterol sulfate 2.5 mg/3 mL (0.083 %) solution for nebulization 2.5 mg inhalation Q4H PRN SOB 01/07/23 sucroferric oxyhydroxide 500 mg chewable tablet (Velphoro) 500 mg PO TID 01/07/23 acetaminophen 500 mg tablet 1,000 mg PO Q8 #0 tabs 01/22/23 cyclobenzaprine 10 mg tablet 10 mg PO TID PRN PRN Breakthrough Pain (>4/10) 7 days #21 tabs 01/22/23 gabapentin 100 mg capsule 300 mg PO QHS NERVE PAIN #21 caps 01/22/23 oxycodone 5 mg tablet 5 - 10 mg PO TID PRN PRN Pain Score 4-10 3 days #18 tabs 01/22/23 Hospital Course Operations - (DRIL) Summary of Care Provided Hospital Course: Patient underwent left arm distal revascularization interval ligation procedure to address her steal occurring with use of her left brachiocephalic fistula for dialysis. Saphenous vein graft was harvested from left lower extremity, skin was closed with Dermabond and Prevena wound VAC placed. The brachial incision skin was closed with Dermabond. Forearm incision skin closure with sutures. Patient tolerated the procedure well. Following procedure, patient complained of left lateral calf pain which is felt to be due to her positioning during surgery. There is no palpable deformity, focal swelling, ecchymosis, erythema in the area of the patient's pain. Her oxycodone was increased to 10 mg and a muscle relaxer was added to her pain regimen, and this seemed to help. Following the procedure, a palpable pulse in the bypass and palpable thrill in the fistula have been sustained. Her hand has been warm with good color. Her fistula was used for dialysis today. The fistula functioned well. She reports resolution of the hand pain/coldness she was previously experiencing with dialysis. Her hand numbness is unchanged, discussed with patient that this may improve with time or may be persistent. Pain at the surgical incision sites has been well controlled on oral regimen. She has remained hemodynamically stable. Hemoglobin has been stable. She is tolerating diet. During this admission, social work/case management also successfully worked to get glucose monitoring supplies for the patient. Patient has been placed at SNF ([facility]) for continued therapy. Patient felt ready for discharge to SNF. She was discharged in medically stable condition. Physical Exam Const alert, oriented x3 and no apparent distress Constitutional Narrative: obese General Appearance: cooperative HEENT normocephalic, head/scalp atraumatic and moist oral mucous membranes Eyes PERRL and EOMs intact bilaterally Neck no lymphadenopathy, supple and no JVD Lymph Lymphatic: no lymphadenopathy noted Resp normal respiratory effort, normal air movement and clear to auscultation bilaterally Cardio regular rate, regular rhythm, S1 normal heart sound, S2 normal heart sound and no murmurs GI normal to inspection, nondistended, normoactive bowel sounds, soft to palpation, non-tender and non-distended Extremity Extremity Narrative: surgical site on left inner forearm healing well. intact dressing over LLE inner thigh where graft was taken from. Has dialysis catheter in situ in chest Skin General Skin Exam: no breakdown Neuro CN's II-XII intact bilaterally and no focal motor deficits Motor Exam: strength 5/5 throughout Psych thought process normal Appearance: appropriate Weight / BMI Weight Weight: 276 lb 7.355 oz Body Mass Index (BMI) 43.4 ABG / Lab / Microbiology Data Result Diagrams: 01/22/23 08:25 01/22/23 08:25 Laboratory: Laboratory Results - last 24 hr 01/21/23 21:42: POC Glucose 259 H 01/22/23 06:34: POC Glucose 157 H 01/22/23 08:25: WBC 6.5, RBC 3.22 L, Hgb 9.9 L, Hct 31.2 L, MCV 96.9, MCH 30.7, MCHC 31.7 L, RDW Std Deviation 52.3 H, RDW Coeff of Juan 14.8 H, Plt Count 201, MPV 9.9, Immature Gran % (Auto) 0.300, Neut % (Auto) 52.2, Lymph % (Auto) 34.2, [place] % (Auto) 7.9, Eos % (Auto) 4.6, Baso % (Auto) 0.8, Absolute Neuts (auto) 3.4, Absolute Lymphs (auto) 2.21, Nucleated RBC % 0 01/22/23 08:25: Sodium 134 L, Potassium 3.7, Chloride 102, Carbon Dioxide 27.0, Anion Gap 5, BUN 17, Creatinine 3.50 H, Estim Creat Clear Calc 19.53, Est GFR (MDRD) Af Amer 18 L, Est GFR (MDRD) Non-Af 15 L, BUN/Creatinine Ratio 4.9 L, Glucose 127 H, Calcium 8.0 L D/C Instructions Discharge Diet: No restrictions Discharge Activity: Return to Normal Activity Weight Bearing Status: Weight bearing as tolerated Lifting Restricted to (Lbs): 20 Lifting Restrictions: Do not lift greater than 20 pounds for 3 weeks Call your doctor if your incision/area has: Sudden Increased Bleeding, Increased Pain/ Swelling and Foul Smelling Discharge Call your doctor if you observe: Fever of 101 or Higher and Uncontrolled pain Additional Dressing/Incision Instructions: You may remove the Prevena wound vac dressing in 1 week as instructed/directed. SNF aides/nurses will help with this, if there are any questions about how to remove please contact our office. Once it is removed, may leave the site uncovered, the incision is protected with surgical glue which will peel off over time. You may leave the left arm incision sites uncovered. You may shower. Soap and water may rinse over the incision sites, pat dry. Do not bathe/submerge incision sites in water for 3 weeks. May continue to use the fistula as usual/tolerated, it functioned well during dialysis while inpatient. Follow-up in the office in 2 weeks for initial post-op visit and suture removal. Please Follow Up With: Gregory Cooper MD When: 02/04/2023 Meaningful Use Info Meaningful Use Diagnoses (Choose all that apply): None applicable Discharge Plan Admission Admit Date/Time: 01/20/23 12:54 Primary Reason for Your Visit: DRIL Procedure Attending Provider: Gregory Cooper Primary Care Provider: Maddy Anaya Consulting Providers: Albino Nicole ; Selam Francisco Discharge Orders/Prescriptions Prescriptions: New acetaminophen 500 mg Tablet 1,000 mg PO Q8 Qty: 0 0RF cyclobenzaprine 10 mg Tablet 10 mg PO TID PRN PRN (Reason: Breakthrough Pain (>4/10)) 7 Days Qty: 21 0RF oxycodone 5 mg Tablet 5 - 10 mg PO TID PRN PRN (Reason: Pain Score 4-10) 3 Days Qty: 18 0RF Continued aspirin 81 mg tablet,delayed release (DR/EC) 81 mg PO DAILY cetirizine 10 mg tablet 10 mg PO DAILY dicyclomine 10 mg capsule 10 mg PO BID pantoprazole 40 mg tablet,delayed release (DR/EC) 40 mg PO DAILY lamotrigine 50 mg tablet,disintegrating 50 mg PO DAILY bumetanide 1 mg tablet 1 mg PO DAILY losartan 50 mg tablet 75 mg PO DAILY tamsulosin 0.4 mg capsule 0.4 mg PO QHS insulin aspart U-100 [Novolog FlexPen U-100 Insulin] 100 unit/mL (3 mL) insulin pen 6 - 10 unit subcut TID Label Comments: 150-200 : 6U 200-250: 12u 250-300: 18 u anything over 300: call MD Frankel FlexTouch U-100 Insuln 100 unit/mL (3 mL) insulin pen 26 unit subcut QHS sucralfate 100 mg/mL suspension 2 ml PO TID sennosides-docusate sodium [Senexon-S] 8.6-50 mg tablet 2 tab PO DAILY Label Comments: TAKE 1-2 TABLETS BY MOUTH DAILY TO PREVENT CONSTIPATION promethazine 25 mg tablet 25 mg PO Q6H PRN (Reason: NAUSEA/VOMITING) atorvastatin 40 mg Tablet 40 mg PO QHS Qty: 30 1RF albuterol sulfate 2.5 mg /3 mL (0.083 %) Solution For Nebulization 2.5 mg INHALATION Q4H PRN (Reason: SOB) albuterol 90 mcg/actuation Aerosol 90 mcg INHALATION PRN PRN (Reason: SOB) B-complex with vitamin C Tablet 1 tab PO DAILY Velphoro 500 mg Tablet,Chewable 500 mg PO TID gabapentin 100 mg capsule 300 mg PO QHS Qty: 21 0RF (DME) FreeStyle Gissell 2 Sensor Kit See Rx Instructions .Route Qty: 6 1RF Rx Instructions: 1 sensor q 14 days Referrals / Follow Up: Maddy Anaya MD [Primary Care Provider] - Disposition Disposition (needs filled in before D/C Order can be placed): Longterm Facility
--- NOTE | 2023-01-22 17:09 | DIALYSIS ---
Hemodialysis x 4.o hours, net UF 4100 ml. UF limited by hypotension and change to crit. profile C. Blood returned to patient at end of treatment, 15g needles removed from LUE AVF, hemostasis achieved. RN report at bedside.
[2023-01-22 17:20] LABS: Bedside Glucose 125 mg/dL (74-106)
--- NOTE | 2023-01-22 17:20 | PCM.TXEXTCAR ---
Diet Diet Order/Speech Therapy: 01/20/23 17:49 Diet: Consistent Carb - Calorie Controlled Dietary Modifications:: No Added Salt Is pt able to select menu?: Yes Diet Comments: Add 1oz extra protein to tray How many daily calories?: 1800 calorie Wound(s) LEFT ARM: Wound Type: Surgical Incision (Left bracial incision closed with surgical glue. Left forearm incision closed with sutures. Keep clean and dry. ) LEFT INNER THIGH: Wound Type: Surgical Incision (Left thigh incision with Prevena wound vac dressing in place. This may be removed on Wednesday. Please contact the vascular surgery office with questions about removal. 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 Patient's hand pain/coldness with dialysis has resolved. Fistula functioned without issue. Palpable pulse in bypass, palpable thrill in fistula. Incision sites with satisfactory appearance. L thigh incision site with vac dressing intact. Surgical site pain is well controlled. Left lateral calf pain is her primary complaint and this is felt to be due to positioning from surgery. This has been better controlled with addition of muscle relaxer. She is hemodynamically stable. She is tolerating diet. PT evaluation recommended d/c to SNF. Patient was agreeable with this and has been accepted at [facility]. Plan for discharge this evening or tomorrow morning to SNF. Allergies/Procedures Done in Hospital Allergies lidocaine Allergy (Severe, Verified 01/07/23 09:19) Rash swelling bacitracin Allergy (Intermediate, Verified 01/07/23 09:19) blisters hydrogen peroxide Allergy (Intermediate, Verified 01/07/23 09:19) blisters isopropyl alcohol Allergy (Intermediate, Verified 01/07/23 09:19) blisters Sulfa (Sulfonamide Antibiotics) Allergy (Intermediate, Verified 01/07/23 09:19) Rash Bleach (Sodium Hypochlorite) Allergy (Verified 01/07/23 09:19) Hives insulin lispro [From Humalog U-100 Insulin] Allergy (Verified 04/19/23 06:49) HIVES, REDNESS PRESERVATIVES Latex, Natural Rubber Allergy (Verified 01/07/23 09:19) Rash metformin Adverse Reaction (Verified 01/07/23 09:19) Vomiting neomycin [From Neosporin ([id number])] Adverse Reaction (Verified 01/20/23 06:49) HIVES, REDNESS polymyxin B [From Neosporin ([id number])] Adverse Reaction (Verified 01/20/23 06:49) HIVES, REDNESS Type of Care/Length of Stay Estimated LOS: Convalescent Care Less Than 30 days Type of Care Needed: Skilled Rehab Potential: Good Prognosis: Good Additional Orders/Day of Discharge Day of Discharge: 01/22/23 Dietary and Speech Recommendations Dietitian Recommendations/Changes: Will change diet to 1800 CCD, MANUEL, Extra protein to manage medical conditions. If PO intakes/appetite improves recommend 1800CCD/Renal diet. Will monitor renal labs and adjust diet as appropriate. Reassess need for adding Nepro supplement at follow-up. Follow Up Care Please follow up with your Primary Care Physician in: 1 week Please Follow Up With: Gregory Cooper MD When: 2 weeks Discharge Plan Admission Admit Date/Time: 01/20/23 12:54 Primary Reason for Your Visit: DRIL Procedure Attending Provider: Gregory Cooper Primary Care Provider: Maddy Anaya Consulting Providers: Albino Nicole ; Selam Francisco Discharge Orders/Prescriptions Prescriptions: New acetaminophen 500 mg Tablet 1,000 mg PO Q8 Qty: 0 0RF cyclobenzaprine 10 mg Tablet 10 mg PO TID PRN PRN (Reason: Breakthrough Pain (>4/10)) 7 Days Qty: 21 0RF oxycodone 5 mg Tablet 5 - 10 mg PO TID PRN PRN (Reason: Pain Score 4-10) 3 Days Qty: 18 0RF Continued aspirin 81 mg tablet,delayed release (DR/EC) 81 mg PO DAILY cetirizine 10 mg tablet 10 mg PO DAILY dicyclomine 10 mg capsule 10 mg PO BID pantoprazole 40 mg tablet,delayed release (DR/EC) 40 mg PO DAILY lamotrigine 50 mg tablet,disintegrating 50 mg PO DAILY bumetanide 1 mg tablet 1 mg PO DAILY losartan 50 mg tablet 75 mg PO DAILY tamsulosin 0.4 mg capsule 0.4 mg PO QHS insulin aspart U-100 [Novolog FlexPen U-100 Insulin] 100 unit/mL (3 mL) insulin pen 6 - 10 unit subcut TID Label Comments: 150-200 : 6U 200-250: 12u 250-300: 18 u anything over 300: call MD Frankel FlexTouch U-100 Insuln 100 unit/mL (3 mL) insulin pen 26 unit subcut QHS sucralfate 100 mg/mL suspension 2 ml PO TID sennosides-docusate sodium [Senexon-S] 8.6-50 mg tablet 2 tab PO DAILY Label Comments: TAKE 1-2 TABLETS BY MOUTH DAILY TO PREVENT CONSTIPATION promethazine 25 mg tablet 25 mg PO Q6H PRN (Reason: NAUSEA/VOMITING) atorvastatin 40 mg Tablet 40 mg PO QHS Qty: 30 1RF albuterol sulfate 2.5 mg /3 mL (0.083 %) Solution For Nebulization 2.5 mg INHALATION Q4H PRN (Reason: SOB) albuterol 90 mcg/actuation Aerosol 90 mcg INHALATION PRN PRN (Reason: SOB) B-complex with vitamin C Tablet 1 tab PO DAILY Velphoro 500 mg Tablet,Chewable 500 mg PO TID gabapentin 100 mg capsule 300 mg PO QHS Qty: 21 0RF (DME) FreeStyle Gissell 2 Sensor Kit See Rx Instructions .Route Qty: 6 1RF Rx Instructions: 1 sensor q 14 days Referrals / Follow Up: Maddy Anaya MD [Primary Care Provider] - Disposition Disposition (needs filled in before D/C Order can be placed): Residential Facility
[2023-01-22 20:45] VITALS: BP 120/60; PULSE 75; RESP 16; TEMP 36.8; O2SAT 98
[2023-01-22] MEDS: Atorvastatin Calcium 40 MG Tablet PO (22:22)
[2023-01-22] MEDS: Tamsulosin HCl 0.4 MG Capsule PO (22:22)
[2023-01-22] MEDS: Gabapentin 300 MG Capsule PO (22:30)
[2023-01-22 22:55] LABS: Bedside Glucose 339 mg/dL (74-106)
== END 2023-01-22 23:00 | disposition skilled nursing facility (03) | DRG 252 ==
LOC: SDC 13:38 → MS3 13:39
PROVIDERS: Anesthesiology; Family Medicine; Student in an Organized Health Care Education/Training Program; Admitting Provider Surgery Trauma Surgery; PCP Family Medicine; Referring Provider Surgery Trauma Surgery; Visit Provider Surgery Trauma Surgery
PROC: 03F Upper Arteries, Fragmentation (ICD-10-PCS; principal; 2023-01-20 07:15)
DX: T82.898A Other specified complication of vascular prosthetic devices, implants and grafts, initial encounter (principal); N18.6 End stage renal disease; I12.0 Hypertensive chronic kidney disease with stage 5 chronic kidney disease or end stage renal disease; E87.1 Hypo-osmolality and hyponatremia; D63.8 Anemia in other chronic diseases classified elsewhere; E11.22 Type 2 diabetes mellitus with diabetic chronic kidney disease; G40.909 Epilepsy, unspecified, not intractable, without status epilepticus; Z99.2 Dependence on renal dialysis; E11.42 Type 2 diabetes mellitus with diabetic polyneuropathy; Z79.4 Long term (current) use of insulin; E78.5 Hyperlipidemia, unspecified; Z79.82 Long term (current) use of aspirin; Z87.891 Personal history of nicotine dependence; Z79.01 Long term (current) use of anticoagulants; Z82.3 Family history of stroke; Y82.9 Unspecified medical devices associated with adverse incidents; E66.9 Obesity, unspecified
CPT/HCPCS: 36415; 80048; 82962; 84702; 85025; 85730; 87426; 90937; 94668; 97162; A4648; J7030; J7040; A4216; G0257; J2405

== ENCOUNTER → 2023-02-23 | Outpatient (CLI) | payer SELFPAY ==
--- NOTE | 2023-02-23 12:32 | US_ITS ---
ACR Level 3 findings have been noted. An addendum which confirms receipt of the report will follow. INDICATION: thyroid nodule EXAMINATION: Ultrasound US Thyroid (eg thyroid, parathyroid, parotid) TECHNIQUE: Fox scale and color doppler imaging was performed of the thyroid gland. COMPARISON: MRA neck September 03, 2022, carotid ultrasound September 02, 2022 FINDINGS: RIGHT THYROID LOBE: 5.6 x 3.0 x 2.4 cm. Homogeneous echotexture with normal vascularity. [ Nodules: 1) mid thyroid 2.4 x 1.1 x 2.2 cm solid heterogeneous hypoechoic nodule wider than tall with smooth margins and no calcifications, TI RADS 4 2) additional small benign colloid cysts are present. LEFT THYROID LOBE: 5.4 x 1.8 x 2.0 cm. Homogeneous echotexture with normal vascularity. [ Nodules: 1) lateral mid thyroid 0.9 x 0.6 x 0.7 cm mixed cystic solid hypoechoic nodule wider than tall with smooth margins and no calcifications, TI RADS 3 2) additional small benign colloid cysts are present. ISTHMUS: 0.5 cm. No thyroid nodules are present. US/Thyroid IMPRESSION: Multinodular goiter. Dominant 2.4 cm right thyroid TI-RAD 4 nodules. Fine-needle aspiration is recommended per ACR TI RADS criteria for histopathologic diagnosis if not stable on remote exams. No specific imaging follow-up required for left thyroid subcentimeter TI RADS 3 lesion per ACR TI-RAD criteria. Electronically Signed: Fidel Albarran MD at 16:45 EDT ,
== END | disposition home or self-care (01) ==
LOC: US 12:31
PROVIDERS: PCP Family Medicine; Referring Provider Nurse Practitioner Family; Visit Provider Nurse Practitioner Family
DX: E04.1 Nontoxic single thyroid nodule (principal)
CPT/HCPCS: 76536

== ENCOUNTER 2023-03-09 16:43 | Outpatient (CLI) | payer MEDICARE, MEDICAID, SELFPAY ==
--- NOTE | 2023-03-09 15:40 | FLU_PTH ---
PATIENT: XOCHITL CHERRY LOC: [facility] U#:[id number] AGE/SX: 48/F ROOM: RE03/09/[address]: Dr. Reggie Hua MD : [id number] BED: DIS: 03/09/2023 SPEC #: [id number] RECD: 03/09/23 16:21 STATUS: MO PO #: [id number] GIANNI: 03/09/23 15:[address]: Reggie Hua DEPT: CYTOLOGY RECD BY: Azul Shannon ENTERED: 03/10/23 08:38 SP TYPE: Fluid OTHR DR: Dr. Maddy Anaya MD Tissues: A - Thyroid gland, NOS B - Thyroid gland, NOS Procedures: Special Stain Group II Surgery Specimen Level IV Cytospin Fluid Cytology Other HEADER OPERATION: Fine needle aspiration, right thyroid nodule PRE-OP DIAGNOSIS: Right thyroid nodule TISSUE SUBMITTED: A ? Right thyroid nodule fluid, B ? Right thyroid nodule x4 slides DIAGNOSIS CYTOLOGY A. Fine needle aspiration, right thyroid nodule (cytospin and cell block): Benign, consistent with benign follicular/colloid nodule (Shelley Category II). See comment. B. Fine needle aspiration, right thyroid nodule (smears): Rare benign follicular cells. See comment. AM:jesús 03/11/2023 COMMENT A. The specimen is adequate for evaluation. The Shelley System for thyroid diagnostic categorization was used in the evaluation of this case. B. The specimen contains very rare follicular cells that have a benign appearance. The paucity of follicular cells precludes further evaluation. Clinical correlation is suggested. CYTOLOGY STUDY Slides are reviewed. CYTOLOGY GROSS A - Received is 35 ml of red cloudy fluid labeled with the patient's name and and designated per the requisition as right thyroid nodule. Submitted for cytology preparation including cell block. B - Received are four smears labeled with the patient's name and designated per the requisition as right thyroid nodule. Submitted for staining. / jesús 03/10/2023 TC:5 CPT: 04279 x2, 10128
== END 2023-03-09 23:59 | disposition home or self-care (01) ==
LOC: LABSPEC 16:48
PROVIDERS: PCP Family Medicine; Referring Provider Surgery; Visit Provider Surgery
DX: E04.1 Nontoxic single thyroid nodule (principal)
CPT/HCPCS: 88108; 88161; 88305; 88313

== ENCOUNTER 2023-04-05 23:33 | Emergency (ER) | payer MEDICARE, MEDICAID, SELFPAY ==
[2023-04-05 23:37] VITALS: BP 197/91; PULSE 71; RESP 20; TEMP 36.1; O2SAT 99; BMI 59.3
--- NOTE | 2023-04-05 23:45 | EKG12_ITS ---
Test Reason : CP Blood Pressure : / mmHG Vent. Rate : 074 BPM Atrial Rate : 074 BPM P-R Int : 146 ms QRS Dur : 080 ms QT Int : 444 ms P-R-T Axes : 014 061 044 degrees QTc Int : 492 ms Normal sinus rhythm Prolonged QT Abnormal ECG Confirmed by MARTINE BHATT, MARA ([id number]), supervising editor trailer CASIMIRO JOY ([id number]) on 04/07/2023 11:34:15 AM Referred By: KIRILL Confirmed By:FLORENCE FARLEY MD
--- NOTE | 2023-04-05 23:57 | RAD_ITS ---
INDICATION: chest pain EXAMINATION/TECHNIQUE: X-RAY - portable AP view chest COMPARISON: None. FINDINGS: LINES/DEVICES: None. LUNGS: No pulmonary edema or focal airspace consolidation. No sizable pleural effusion. No pneumothorax detected. Mildly elevated right hemidiaphragm. MEDIASTINUM AND CARDIOVASCULAR STRUCTURES: Heart size upper limits normal, magnified by imaging technique. Mediastinal contours unremarkable. BONES AND SOFT TISSUES: No acute findings. RAD/Chest 1 View (Portable) IMPRESSION: No radiographic evidence of acute cardiopulmonary disease. Electronically Signed: Houston Santoyo MD at 1:01 EDT ,
[2023-04-06] MEDS: Aspirin 325 MG Tablet PO (00:08)
[2023-04-06 00:20] LABS: Anion Gap 5 (5-15); BUN 15 mg/dL (7-18); BUN/Creat Ratio 5.5 RATIO (10-20); Calcium,Total 8.8 mg/dL (8.5-10.1); Chloride 102 mmol/L (98-107); Creatinine, Serum 2.74 mg/dL (0.55-1.02); EST Glomerular Filtration Rate 20 mL/min (>60); Est Glom Filt Rate - Afr Amer 24 mL/min (>60); Estimated Creatinine Clearance 24.68 ml/min; Glucose 328 mg/dL (74-106); Potassium 4.1 mmol/L (3.5-5.1); Sodium Level 134 mmol/L (136-145); Troponin-I HS 21 pg/mL (3.0-54.0)
[2023-04-06 00:22] LABS: D-Dimer Quantitative (DVT/PE) 0.54 FEU/ug/m (0.27-0.49)
[2023-04-06 00:25] LABS: Absolute Lymphocyte Count 1.89 X10^3/uL (0.83-4.51); Absolute Neutrophil Count 3.7 X10^3/uL (2.0-7.7); Basophil# 0.06 X10^3/uL; Eosinophil# 0.27 X10^3/uL; Eosinophils% 4.3 % (0-5); Hematocrit 33.8 % (37-47); Hemoglobin 11.2 g/dL (12.0-15.0); Lymphocyte # 1.89 X10^3/ul (0.83-4.51); Lymphocyte % 30.3 % (19-41); Mean Corp Hgb Conc 33.1 g/dL (32-36); Mean Corpuscular Hgb 30.6 pg (27.0-32.0); Mean Corpuscular Volume 92.3 fL (81-99); Mean Platelet Vol. 9.4 fl (6.2-12.0); Monocyte# 0.29 X10^3/uL; Monocyte% 4.6 % (0-10); NRBC Flagged by Analyzer 0 % (0-5); Neutrophil # 3.66 X10^3/uL (2.7-7.7); Neutrophil % 58.7 % (47-70); Platelet Count 256 K/mm3 (150-450); RBC Distribution Width CV 13.4 % (11.6-14.6); RBC Distribution Width SD 45.6 fl (35.1-43.9); Red Blood Count 3.66 M/mm3 (4.2-5.4); White Blood Count 6.2 K/mm3 (4.4-11.0)
[2023-04-06 00:33] VITALS: BP 222/90; PULSE 70; RESP 16; O2SAT 97
[2023-04-06] MEDS: HYDROcodone Bitartrate/Apap 5/325 Tablet PO (00:50)
[2023-04-06 01:00] VITALS: BP 224/121; PULSE 68; RESP 16; O2SAT 97
--- NOTE | 2023-04-06 01:16 | CT_ITS ---
STUDY: CTA CHEST REASON FOR EXAM: Female, 48 years old. Chest pain with elevated d-dimer. TECHNIQUE: CT angiogram of chest was performed with the intravenous administration of 100 ml Isovue-370. Post-processing of the angiographic images was performed, with MIP and MPR reconstructions. Individualized dose optimization techniques were used for this CT. COMPARISON: None. FINDINGS: PULMONARY ARTERIES: No pulmonary arterial filling defects identified. AORTA AND VISUALIZED GREAT VESSELS: No thoracic aortic aneurysm or dissection. Great vessels are patent. HEART AND PERICARDIUM: Heart size within normal limits. Coronary arterial calcifications noted. No significant pericardial effusion. MEDIASTINUM AND KRISTI: No pathologically enlarged mediastinal or hilar lymph nodes. Esophagus is unremarkable. LUNGS, PLEURA AND LARGE AIRWAYS: Mild scattered bilateral atelectatic changes, with no discrete pulmonary mass or focal airspace consolidation. Trace left basilar pleural effusion. No pneumothorax. BONES: Intact with no suspicious osseous lesion. CHEST WALL: No chest wall mass or acute findings. THYROID GLAND: Heterogeneous attenuation thyroid nodules, largest within right lobe measuring 17 mm diameter. VISUALIZED ABDOMEN: No acute findings. Status post cholecystectomy. CT/CTA Chest W/WO Contrast IMPRESSION: 1. No pulmonary embolus identified. 2. Mild atelectatic changes with trace left basilar pleural effusion. 3. Thyroid nodules. Recommend nonemergent follow-up thyroid ultrasound. 4. Coronary arterial disease. Electronically Signed: Houston Santoyo MD at 2:37 EDT ,
[2023-04-06 02:00] VITALS: BP 194/75; PULSE 65; RESP 7; O2SAT 94
[2023-04-06 02:24] LABS: Troponin-I HS 22 pg/mL (3.0-54.0)
[2023-04-06 03:00] VITALS: BP 202/77; PULSE 66; RESP 10; O2SAT 98
--- NOTE | 2023-04-06 03:07 | EX.ED.DYSGE1 ---
HPI History of Present Illness Chief Complaint: Chest Pain Informant: patient Narrative Narrative: Patient is a 48-year-old female with past medical history of end-stage renal disease on dialysis as well as type 2 diabetes and hypertension. Patient states she awoke this morning around 4 AM and noticed some left-sided chest pain that is sharp in nature. She states that there is no radiation to her neck or back and she denies any worsening with inspiration and she denies any nausea vomiting or diaphoresis associated with this. She states that there is no shortness of breath either. She does state that she has noticed that the pain is slightly worse with motion. She states that she was able to go to dialysis morning and completed but throughout the day the pain has persisted and not responded to [id number] medications and therefore she comes in for evaluation. Patient denies any history of DVT/PE but does report 2 surgeries in the last 6 to 8 weeks. [facility] Medical History (Updated 04/06/23 @ 23:[address] Jackson Lopez, DO) Anxiety Arthritis Asthma Fleming esophagus Blackout Bruising delivery delivered Chronic kidney disease Depression Dietary restriction Difficulty swallowing Disc disorder Easy bruising ESRD needing dialysis FH: cholecystectomy Former smoker Gastric reflux High cholesterol History of CHF (congestive heart failure) History of Clostridium difficile infection History of echocardiogram History of edema History of stress test History of ulceration Hypertension Hypertension Injury of head and neck Insulin dependent diabetes mellitus Left foot amputee (~2019) Left hand pain Loss of hearing Low iron Migraine headache On home oxygen therapy Seasonal allergies Shortness of breath on exertion Stroke (~2021) Syncope Thyroid disease Transitioned from acute care to home health care Uses wheelchair Vision impairment Walker as ambulation aid Wears glasses Home Medications aspirin 81 mg tablet,delayed release 81 mg PO DAILY HEART HEALTH 06/23/22 [History Last Taken 01/19/23] bumetanide 1 mg tablet 1 mg PO DAILY FLUID 06/23/22 [History Last Taken 01/19/23] cetirizine 10 mg tablet 10 mg PO DAILY ALLERGIES 06/23/22 [History Last Taken 01/19/23] dicyclomine 10 mg capsule 10 mg PO BID STOMACH 06/23/22 [History Last Taken 01/19/23] insulin aspart U-100 100 unit/mL (3 mL) subcutaneous pen (Novolog FlexPen U-100 Insulin aspart) 6 - 10 unit subcut TID DIABETES 06/23/22 [History Last Taken 08/31/22] lamotrigine 50 mg disintegrating tablet 50 mg PO DAILY MOOD 06/23/22 [History Last Taken 01/20/23] losartan 50 mg tablet 75 mg PO DAILY BLOOD PRESSURE 06/23/22 [History Last Taken 01/20/23] pantoprazole 40 mg tablet,delayed release 40 mg PO DAILY ACID REFLUX 06/23/22 [History Last Taken 01/20/23] tamsulosin 0.4 mg capsule 0.4 mg PO QHS BLADDER 06/23/22 [History Last Taken 01/19/23] promethazine 25 mg tablet 25 mg PO Q6H PRN NAUSEA/VOMITING 09/01/22 [History Last Taken Unknown] sennosides 8.6 mg-docusate sodium 50 mg tablet (Senexon-S) 2 tab PO DAILY CONSTIPATION 09/01/22 [History Last Taken 01/17/23] atorvastatin 40 mg tablet 40 mg PO QHS #30 tabs 09/04/22 [Rx Last Taken 01/19/23] insulin detemir U-100 100 unit/mL (3 mL) subcutaneous pen (Levemir FlexTouch U-100 Insulin) 22 unit subcut QHS DIABETES 11/12/22 [History Last Taken 01/19/23 13 UNITS] sucralfate 100 mg/mL oral suspension 2 ml PO TID 11/12/22 [History Last Taken 01/19/23] B-complex with vitamin C 1 tab PO DAILY 01/07/23 [History Last Taken 01/19/23] albuterol 90 mcg/actuation aerosol inhaler 90 mcg inhalation PRN PRN SOB 01/07/23 [History Last Taken 01/19/23] albuterol sulfate 2.5 mg/3 mL (0.083 %) solution for nebulization 2.5 mg inhalation Q4H PRN SOB 01/07/23 [History Last Taken 01/19/23] sucroferric oxyhydroxide 500 mg chewable tablet (Velphoro) 500 mg PO TID 01/07/23 [History Last Taken 01/19/23] acetaminophen 500 mg tablet 1,000 mg (2 x 500 mg) PO Q8 #0 tabs 01/22/23 [Rx Last Taken Unknown] cyclobenzaprine 10 mg tablet 10 mg PO TID PRN PRN Breakthrough Pain (>4/10) 7 days #21 tabs 01/22/23 [Rx Last Taken Unknown] gabapentin 100 mg capsule 300 mg (3 x 100 mg) PO QHS NERVE PAIN #21 caps 01/22/23 [Rx Last Taken Unknown] flash glucose sensor (FreeStyle Gissell 2 Sensor kit) #6 ea 03/16/23 [Rx Last Taken Unknown] hydrocodone 7.5 mg-acetaminophen 325 mg tablet 1 tab PO Q6H PRN pain 3 days #12 tabs 04/06/23 [Rx Last Taken Unknown] Allergy/AdvReac Type Severity Reaction Status Date / Time lidocaine Allergy Severe Rash Verified 04/05/23 23:37 bacitracin Allergy Intermediate blisters Verified 04/05/23 23:37 hydrogen peroxide Allergy Intermediate blisters Verified 04/05/23 23:37 isopropyl alcohol Allergy Intermediate blisters Verified 04/05/23 23:37 Sulfa (Sulfonamide Allergy Intermediate Rash Verified 04/05/23 23:37 Antibiotics) Bleach (Sodium Hypochlorite) Allergy Hives Verified 04/05/23 23:37 insulin lispro Allergy HIVES, Verified 04/05/23 23:37 [From Humalog U-100 Insulin] REDNESS Latex, Natural Rubber Allergy Rash Verified 04/05/23 23:37 metformin AdvReac Vomiting Verified 04/05/23 23:37 neomycin AdvReac HIVES, Verified 04/05/23 23:37 [From Neosporin REDNESS ([id number])] polymyxin B AdvReac HIVES, Verified 04/05/23 23:37 [From Neosporin REDNESS ([id number])] Family History Other Arthritis Asthma CVA (cerebral vascular accident) Diabetes Heart disease High cholesterol Hypertension Kidney disease Osteoporosis Seizures Surgical History H/O left knee surgery H/O right knee surgery History of arteriovenostomy for renal dialysis History of bladder surgery History of History of cholecystectomy History of foot surgery History of infusaport central venous catheter removal History of liver biopsy History of lumpectomy of right breast History of shoulder surgery History of thoracentesis Hx of tonsillectomy Social History (Reviewed 03/18/23 @ 13:31 by Josselin Tejeda household members: family housing: house Smoking Status: Former smoker alcohol intake: never ROS ROS ED Constitutional Constitutional ED: Denies chills or fever(s) ENT ENT ED: Denies sore throat Cardiovascular Cardiovascular: Reports chest pain; Denies palpitations or racing heartbeat Respiratory/Chest Respiratory/Chest: Denies cough or dyspnea Gastrointestinal Gastrointestinal: Denies abdominal pain, diarrhea, nausea or vomiting Musculoskeletal Musculoskeletal: Denies back pain or myalgias Integumentary Denies rash Neurologic Neurologic: Denies headache(s) Hematologic/Lymphatic Hematologic/Lymphatic: Denies easy bleeding or easy bruising EXAM Physical Exam Const Vital Signs: 04/06/23 00:33 04/06/23 01:00 04/06/23 02:00 Pulse Rate 70 68 65 Respiratory Rate 16 16 7 L Blood Pressure 222/90 H 224/121 H 194/75 H Blood Pressure Mean 134 155 114 Pulse Ox 97 97 94 04/06/23 03:00 04/06/23 03:28 Pulse Rate 66 66 Respiratory Rate 10 L 10 L Blood Pressure 202/77 H 202/77 H Blood Pressure Mean 118 Pulse Ox 98 98 Positive well nourished, well developed and obese General Appearance ED: well developed Nutritional Appearance: obese HEENT Reports dry mucous membranes HEENT Narrative: No tongue or lip swelling no oral lesions no airway edema or compromise Mouth ED: Yes dry mucous membranes Mouth: dry mucous membranes Eyes PERRL and EOMs intact bilaterally General Eye ED: Negative for scleral icterus Neck supple and no JVD Neck Narrative: No nuchal rigidity or meningeal signs noted Chest Wall Chest Narrative: Reproducible left anterior chest wall pain with palpation without bony deformity or crepitance Resp normal respiratory effort and clear to auscultation bilaterally Cardio regular rate and regular rhythm Rate: other Other Details: Carotid pulses are plus 2 out of 4 bilaterally GI normal to inspection, nondistended, normoactive bowel sounds, non-tender, non-distended and no masses GI Narrative: No voluntary guarding or rigidity no pulsatile mass Auscultation: normoactive bowel sounds Palpation: soft Extremity normal to inspection Extremity Narrative: Negative Homans' sign bilateral Fistula in place in the left upper arm with palpable thrill and good bruit Neuro oriented x3 and CN's II-XII intact bilaterally Sensorium / Orientation: alert Psych Psych Narrative: Patient is a nervous/anxious affect Skin no rashes or lesions noted Skin Narrative: No overlying soft tissue changes to suggest trauma or infection MDM MDM MDM Narrative Medical decision making narrative: Patient presented to the ER hypertensive otherwise with stable vitals. She reported constant pain in the left chest wall throughout the entire day. The pain was worse with motion and there is no pleuritic component to the pain and patient has no history of DVT/PE but did have 2 surgeries in the past 6 to 8 weeks and therefore does have concern for potential PE as a cause of her symptoms. As patient does not have radiation of the pain there is no nausea vomiting or diaphoresis associated with this this is atypical cardiac pain but based on her hypertension end-stage renal disease and family history she does have risk factors for cardiovascular disease. A basic cardiac work-up was obtained and a D-dimer was added because of the recent surgeries and concern for DVT/PE. Initial troponin was normal at 21 and the delta remained flat at 22 which is not clinically significant. EKG is normal sinus rhythm as well without signs of ischemia or acute current of injury. A CTA of the chest was obtained as her D-dimer was slightly elevated and this reveals no dissection pneumothorax infiltrate or pulmonary embolus. Therefore at this time as work-up reveals no signs of active acute coronary syndrome and CTA reveals no PE or dissection or pneumonia or pneumothorax I do not believe patient needs to stay in the hospital and is otherwise safe for discharge History & Record Review Discussion w/independent historian: Patient and Family Lab Data Attestation: I reviewed the patient's lab results. Labs: Laboratory Results - last 24 hr 04/05/23 04/06/23 23:50 01:52 WBC 6.2 RBC 3.66 L Hgb 11.2 L Hct 33.8 L MCV 92.3 MCH 30.6 MCHC 33.1 RDW Std Deviation 45.6 H RDW Coeff of Juan 13.4 Plt Count 256 MPV 9.4 Immature Gran % (Auto) 1.100 H Neut % (Auto) 58.7 Lymph % (Auto) 30.3 [place] % (Auto) 4.6 Eos % (Auto) 4.3 Baso % (Auto) 1.0 Absolute Neuts (auto) 3.7 Absolute Lymphs (auto) 1.89 Nucleated RBC % 0 D-Dimer Quant (PE/DVT) 0.54 H* Sodium 134 L Potassium 4.1 Chloride 102 Carbon Dioxide 27.0 Anion Gap 5 BUN 15 Creatinine 2.74 H Estim Creat Clear Calc 24.68 Est GFR (MDRD) Af Amer 24 L Est GFR (MDRD) Non-Af 20 L BUN/Creatinine Ratio 5.5 L Glucose 328 H Calcium 8.8 Magnesium 2.0 Troponin I High Sens 21 22 Radiography Diagnostic Testing: Clinical Impression(s) from Imaging Studies Chest X-Ray 04/05/23 23:57 IMPRESSION: No radiographic evidence of acute cardiopulmonary disease. Electronically Signed: Houston Santoyo MD at 1:01 EDT , Chest CTA 04/06/23 01:16 IMPRESSION: 1. No pulmonary embolus identified. 2. Mild atelectatic changes with trace left basilar pleural effusion. 3. Thyroid nodules. Recommend nonemergent follow-up thyroid ultrasound. 4. Coronary arterial disease. Electronically Signed: Houston Santoyo MD at 2:37 EDT , Chest x-ray as interpreted by the emergency medicine physician reveals no acute infiltrate pneumothorax or pleural effusion Discharge Plan Triage Chief Complaint: Chest Pain ED Provider: Jackson Lopez Dx/Rx/DC Orders Clinical Impression: Nonspecific chest pain, ESRD needing dialysis, Type 2 diabetes mellitus, Hypertension Instructions: ED Chest Pain, Uncertain Cause Prescriptions: New hydrocodone-acetaminophen 7.5-325 mg tablet 1 tab PO Q6H PRN (Reason: pain) 3 Days Qty: 12 0RF No Action aspirin 81 mg tablet,delayed release (DR/EC) 81 mg PO DAILY cetirizine 10 mg tablet 10 mg PO DAILY dicyclomine 10 mg capsule 10 mg PO BID pantoprazole 40 mg tablet,delayed release (DR/EC) 40 mg PO DAILY lamotrigine 50 mg tablet,disintegrating 50 mg PO DAILY bumetanide 1 mg tablet 1 mg PO DAILY losartan 50 mg tablet 75 mg PO DAILY tamsulosin 0.4 mg capsule 0.4 mg PO QHS insulin aspart U-100 [Novolog FlexPen U-100 Insulin] 100 unit/mL (3 mL) insulin pen 6 - 10 unit subcut TID Patient Comments: 150-200 : 6U 200-250: 12u 250-300: 18 u anything over 300: call MD Frankel FlexTouch U100 Insulin 100 unit/mL (3 mL) insulin pen 22 unit subcut QHS sucralfate 100 mg/mL suspension 2 ml PO TID sennosides-docusate sodium [Senexon-S] 8.6-50 mg tablet 2 tab PO DAILY Patient Comments: TAKE 1-2 TABLETS BY MOUTH DAILY TO PREVENT CONSTIPATION promethazine 25 mg tablet 25 mg PO Q6H PRN (Reason: NAUSEA/VOMITING) atorvastatin 40 mg Tablet 40 mg PO QHS Qty: 30 1RF albuterol sulfate 2.5 mg /3 mL (0.083 %) Solution For Nebulization 2.5 mg INHALATION Q4H PRN (Reason: SOB) albuterol 90 mcg/actuation Aerosol 90 mcg INHALATION PRN PRN (Reason: SOB) B-complex with vitamin C Tablet 1 tab PO DAILY Velphoro 500 mg Tablet,Chewable 500 mg PO TID acetaminophen 500 mg Tablet 1,000 mg PO Q8 Qty: 0 0RF cyclobenzaprine 10 mg Tablet 10 mg PO TID PRN PRN (Reason: Breakthrough Pain (>4/10)) 7 Days Qty: 21 0RF gabapentin 100 mg capsule 300 mg PO QHS Qty: 21 0RF (DME) FreeStyle Gissell 2 Sensor Kit See Rx Instructions .Route Qty: 6 1RF Rx Instructions: 1 sensor q 14 days Primary Care Provider: Maddy Anaya Referrals: Maddy Anaya MD [Primary Care Provider] - Activity Restrictions/Additional Instructions: Your work-up today showed no signs of active cardiac damage with stable/normal troponins and no signs of a pulmonary embolus/blood clot as your CTA revealed no acute findings. However based on your complex past medical history it may benefit you to follow-up with cardiology and do outpatient testing secondary to risk factors. If you have any further concerns please return for repeat evaluation Disposition Disposition: Home, Self Care Discharge Date/Time: 04/06/23 03:29
[2023-04-06 03:28] VITALS: BP 202/77; PULSE 66; RESP 10; O2SAT 98
== END 2023-04-06 03:29 | disposition home or self-care (01) ==
PROVIDERS: Emergency Provider Emergency Medicine; PCP Family Medicine; Visit Provider Emergency Medicine
DX: R07.9 Chest pain, unspecified (principal); Z99.2 Dependence on renal dialysis; E11.22 Type 2 diabetes mellitus with diabetic chronic kidney disease; I12.0 Hypertensive chronic kidney disease with stage 5 chronic kidney disease or end stage renal disease; N18.6 End stage renal disease; Z79.4 Long term (current) use of insulin; Z87.891 Personal history of nicotine dependence; Z90.49 Acquired absence of other specified parts of digestive tract; Z79.82 Long term (current) use of aspirin; Z86.73 Personal history of transient ischemic attack (TIA), and cerebral infarction without residual deficits; K21.9 Gastro-esophageal reflux disease without esophagitis; J45.909 Unspecified asthma, uncomplicated; Z79.899 Other long term (current) drug therapy
CPT/HCPCS: 71045; 71275; 80048; 83735; 84484; 85025; 85379; 93005; 99285; Q9967; A4216

== ENCOUNTER 2023-04-11 21:39 | Emergency (ER) | payer MEDICARE, MEDICAID, SELFPAY ==
[2023-04-11 21:39] VITALS: BP 209/78; PULSE 79; RESP 16; TEMP 36.3; O2SAT 96
--- NOTE | 2023-04-11 22:20 | RAD_ITS ---
EXAM: XR LEFT FOOT COMPLETE, 3 OR MORE VIEWS CLINICAL INDICATION: pain / ? Osteomyelitis TECHNIQUE: Frontal, lateral and oblique views of the left foot. COMPARISON: No relevant prior studies available. FINDINGS: BONES/JOINTS: There is been previous amputation of mid fifth metatarsal and fifth phalanx. No acute fracture. No subluxation. Normal alignment. Preservation of the joint space. No sclerotic or destructive changes observed. SOFT TISSUES: There is a large amount of soft tissue swelling over the dorsum of the foot. No radiopaque foreign body. RAD/Foot min 3 Views IMPRESSION: Previous amputation of the mid fifth metatarsal and fifth phalanx. There is soft tissue swelling with no acute osseous abnormalities. If indicated further evaluation with MRI may be beneficial. Electronically Signed: Phil Leonardo MD at 22:39 EDT ,
--- NOTE | 2023-04-11 22:35 | EX.ED.DYSGE1 ---
HPI History of Present Illness Chief Complaint: Wound Informant: patient Narrative Narrative: Patient is a 48-year-old female with past medical history of type 2 diabetes currently on insulin as well as hypertension and end-stage renal disease on dialysis. Patient states she receives dialysis on Wednesday and Wednesday. Patient states that beginning she developed extreme fatigue and slept all day. She states family try to get her up for dialysis on Wednesday but she was too tired to do so and therefore has not had dialysis since Wednesday. She states that she has a history of osteomyelitis which led to amputation of her left fifth toe. She reports that she has noticed pain in that area since and now has bruising and swelling with no history of trauma. Patient denies any fevers at home but with the pain swelling and fatigue as concern for infection once again and therefore comes in for evaluation. [facility] Medical History Anxiety Arthritis Asthma Fleming esophagus Blackout Bruising delivery delivered Chronic kidney disease Depression Dietary restriction Difficulty swallowing Disc disorder Easy bruising ESRD needing dialysis FH: cholecystectomy Former smoker Gastric reflux High cholesterol History of CHF (congestive heart failure) History of Clostridium difficile infection History of echocardiogram History of edema History of stress test History of ulceration Hypertension Hypertension Injury of head and neck Insulin dependent diabetes mellitus Left foot amputee (~2019) Left hand pain Loss of hearing Low iron Migraine headache On home oxygen therapy Seasonal allergies Shortness of breath on exertion Stroke (~2021) Syncope Thyroid disease Transitioned from acute care to home health care Uses wheelchair Vision impairment Walker as ambulation aid Wears glasses Home Medications aspirin 81 mg tablet,delayed release 81 mg PO DAILY HEART HEALTH 06/23/22 [History Last Taken 01/19/23] bumetanide 1 mg tablet 1 mg PO DAILY FLUID 06/23/22 [History Last Taken 01/19/23] cetirizine 10 mg tablet 10 mg PO DAILY ALLERGIES 06/23/22 [History Last Taken 01/19/23] dicyclomine 10 mg capsule 10 mg PO BID STOMACH 06/23/22 [History Last Taken 01/19/23] insulin aspart U-100 100 unit/mL (3 mL) subcutaneous pen (Novolog FlexPen U-100 Insulin aspart) 6 - 10 unit subcut TID DIABETES 06/23/22 [History Last Taken 08/31/22] lamotrigine 50 mg disintegrating tablet 50 mg PO DAILY MOOD 06/23/22 [History Last Taken 01/20/23] losartan 50 mg tablet 75 mg PO DAILY BLOOD PRESSURE 06/23/22 [History Last Taken 01/20/23] pantoprazole 40 mg tablet,delayed release 40 mg PO DAILY ACID REFLUX 06/23/22 [History Last Taken 01/20/23] tamsulosin 0.4 mg capsule 0.4 mg PO QHS BLADDER 06/23/22 [History Last Taken 01/19/23] promethazine 25 mg tablet 25 mg PO Q6H PRN NAUSEA/VOMITING 09/01/22 [History Last Taken Unknown] sennosides 8.6 mg-docusate sodium 50 mg tablet (Senexon-S) 2 tab PO DAILY CONSTIPATION 09/01/22 [History Last Taken 01/17/23] atorvastatin 40 mg tablet 40 mg PO QHS #30 tabs 09/04/22 [Rx Last Taken 01/19/23] insulin detemir U-100 100 unit/mL (3 mL) subcutaneous pen (Levemir FlexTouch U-100 Insulin) 22 unit subcut QHS DIABETES 11/12/22 [History Last Taken 01/19/23 13 UNITS] sucralfate 100 mg/mL oral suspension 2 ml PO TID 11/12/22 [History Last Taken 01/19/23] B-complex with vitamin C 1 tab PO DAILY 01/07/23 [History Last Taken 01/19/23] albuterol 90 mcg/actuation aerosol inhaler 90 mcg inhalation PRN PRN SOB 01/07/23 [History Last Taken 01/19/23] albuterol sulfate 2.5 mg/3 mL (0.083 %) solution for nebulization 2.5 mg inhalation Q4H PRN SOB 01/07/23 [History Last Taken 01/19/23] sucroferric oxyhydroxide 500 mg chewable tablet (Velphoro) 500 mg PO TID 01/07/23 [History Last Taken 01/19/23] acetaminophen 500 mg tablet 1,000 mg (2 x 500 mg) PO Q8 #0 tabs 01/22/23 [Rx Last Taken Unknown] cyclobenzaprine 10 mg tablet 10 mg PO TID PRN PRN Breakthrough Pain (>4/10) 7 days #21 tabs 01/22/23 [Rx Last Taken Unknown] gabapentin 100 mg capsule 300 mg (3 x 100 mg) PO QHS NERVE PAIN #21 caps 01/22/23 [Rx Last Taken Unknown] flash glucose sensor (FreeStyle Gissell 2 Sensor kit) #6 ea 03/16/23 [Rx Last Taken Unknown] hydrocodone 7.5 mg-acetaminophen 325 mg tablet 1 tab PO Q6H PRN pain 3 days #12 tabs 04/06/23 [Rx Last Taken Unknown] clindamycin HCl 300 mg capsule 300 mg PO 4X/DAY 10 days #40 caps 04/12/23 [Rx Last Taken Unknown] fluconazole 150 mg tablet (Diflucan) 150 mg PO DAILY #2 tabs 04/12/23 [Rx Last Taken Unknown] hydrocodone 7.5 mg-acetaminophen 325 mg tablet 1 tab PO Q6H PRN pain 3 days #12 tabs 04/12/23 [Rx Last Taken Unknown] Allergy/AdvReac Type Severity Reaction Status Date / Time lidocaine Allergy Severe Rash Verified 04/11/23 21:42 bacitracin Allergy Intermediate blisters Verified 04/11/23 21:42 hydrogen peroxide Allergy Intermediate blisters Verified 04/11/23 21:42 isopropyl alcohol Allergy Intermediate blisters Verified 04/11/23 21:42 Sulfa (Sulfonamide Allergy Intermediate Rash Verified 04/11/23 21:42 Antibiotics) Bleach (Sodium Hypochlorite) Allergy Hives Verified 04/11/23 21:42 insulin lispro Allergy HIVES, Verified 04/11/23 21:42 [From Humalog U-100 Insulin] REDNESS Latex, Natural Rubber Allergy Rash Verified 04/11/23 21:42 metformin AdvReac Vomiting Verified 04/11/23 21:42 neomycin AdvReac HIVES, Verified 04/11/23 21:42 [From Neosporin REDNESS ([id number])] polymyxin B AdvReac HIVES, Verified 04/11/23 21:42 [From Neosporin REDNESS ([id number])] Family History Other Arthritis Asthma CVA (cerebral vascular accident) Diabetes Heart disease High cholesterol Hypertension Kidney disease Osteoporosis Seizures Surgical History H/O left knee surgery H/O right knee surgery History of arteriovenostomy for renal dialysis History of bladder surgery History of History of cholecystectomy History of foot surgery History of infusaport central venous catheter removal History of liver biopsy History of lumpectomy of right breast History of shoulder surgery History of thoracentesis Hx of tonsillectomy Social History household members: family housing: house Smoking Status: Former smoker alcohol intake: never ROS ROS ED Constitutional Constitutional ED: Reports other Details: Positive generalized fatigue ; Denies chills or fever(s) ENT ENT ED: Denies sore throat Cardiovascular Cardiovascular: Denies chest pain Respiratory/Chest Respiratory/Chest: Denies cough or dyspnea Gastrointestinal Gastrointestinal: Denies abdominal pain, diarrhea, nausea or vomiting Musculoskeletal Musculoskeletal: Reports other Details: Positive left foot pain Integumentary Reports other Details: Positive swelling and bruising to the lateral aspect of the left foot ; Denies rash Neurologic Neurologic: Denies headache(s) Hematologic/Lymphatic Hematologic/Lymphatic: Denies easy bleeding or easy bruising EXAM Physical Exam Const Vital Signs: 04/11/23 21:39 04/12/23 00:12 04/12/23 00:12 Temperature 97.4 F L 97.6 F L Temperature Source Temporal Temporal Pulse Rate 79 76 76 Respiratory Rate 16 18 Blood Pressure 209/78 H 173/83 H Blood Pressure Mean 121 113 Pulse Ox 96 98 Oxygen Delivery Method Room Air Room Air 04/12/23 01:15 Temperature Temperature Source Pulse Rate Respiratory Rate 16 Blood Pressure 189/91 H Blood Pressure Mean Pulse Ox 97 Oxygen Delivery Method Positive well nourished, well developed and obese General Appearance ED: well developed Nutritional Appearance: obese Eyes PERRL and EOMs intact bilaterally Neck supple and no JVD Resp normal respiratory effort and clear to auscultation bilaterally Cardio regular rate and regular rhythm Extremity Extremity Narrative: Patient has a 2 x 4 cm area ecchymosis and soft tissue swelling along the lateral aspect of the left foot that also encompasses the plantar aspect. There is tenderness to palpation at the site without obvious bony deformity or joint effusion. There are chronic changes of the foot with amputation of the left fifth metatarsal. There is no active discharge or lymphangitic streaking noted. No obvious abscess formation present. No crepitance palpated. Neuro oriented x3 and CN's II-XII intact bilaterally Sensorium / Orientation: alert Psych mental status grossly normal Skin Skin Narrative: Soft tissue changes of the left foot as documented above MDM MDM MDM Narrative Medical decision making narrative: Patient presented to the ER hypertensive but has a past medical history of this. She denies any recent trauma but had soft tissue swelling with more ecchymosis in the development of a diabetic ulcer along the plantar lateral aspect of her left foot. As she is already had osteomyelitis in the past there was concern she was developing this once again especially with her immunosuppression from renal failure and diabetes. Blood cultures were obtained patient was on vancomycin and Zosyn and basic blood work with an x-ray were ordered. X-ray revealed no obvious signs of osteomyelitis. Lab work showed end-stage renal disease and hyperglycemia but no signs of DKA or HHS. Patient did not have a fever upon evaluation and her white count CRP and lactic acid are normal going against systemic infection. I performed a needle aspiration of the area and only resulted blood. At this time I do feel patient is developing a diabetic ulcer with secondary infection but as the work-up does not indicate that it is progressing to the bone or systemically I do not feel she warrants inpatient antibiotics. She be placed on oral antibiotics and will follow-up on an outpatient basis. There is no need to admit her from her renal disease standpoint either as her potassium and phosphorus are normal at this time. This plan of care was discussed with the patient she is agreeable to it and therefore she will be discharged and she agrees to return to the hospital if there is no improvement of symptoms. History & Record Review Discussion w/independent historian: Patient and Family Lab Data Attestation: I reviewed the patient's lab results. Labs: Laboratory Results - last 24 hr 04/11/23 22:50 WBC 5.6 RBC 3.67 L Hgb 11.3 L Hct 35.3 L MCV 96.2 MCH 30.8 MCHC 32.0 RDW Std Deviation 49.1 H RDW Coeff of Juan 14.0 Plt Count 268 MPV 9.4 Immature Gran % (Auto) 0.500 Neut % (Auto) 62.0 Lymph % (Auto) 25.1 [place] % (Auto) 5.2 Eos % (Auto) 6.1 H Baso % (Auto) 1.1 H Absolute Neuts (auto) 3.5 Absolute Lymphs (auto) 1.41 Nucleated RBC % 0 ESR 37 H Sodium 132 L Potassium 4.9 Chloride 101 Carbon Dioxide 25.0 Anion Gap 6 BUN 33 H Creatinine 5.58 H Est GFR (MDRD) Af Amer 11 L Est GFR (MDRD) Non-Af 9 L BUN/Creatinine Ratio 5.9 L Glucose 592 H* Lactic Acid 1.3 Calcium 8.3 L Phosphorus 4.7 C-React Prot Ext Range < 2.90 Radiography Diagnostic Testing: Clinical Impression(s) from Imaging Studies Foot X-Ray 04/11/23 22:20 IMPRESSION: Previous amputation of the mid fifth metatarsal and fifth phalanx. There is soft tissue swelling with no acute osseous abnormalities. If indicated further evaluation with MRI may be beneficial. Electronically Signed: Phil Leonardo MD at 22:39 EDT , X-ray of the left foot as interpreted by the emergency medicine physician reveals chronic amputation of the left fifth metatarsal with soft tissue swelling but no obvious fracture dislocation foreign body or signs of osteomyelitis. Discharge Plan Triage Chief Complaint: Wound ED Provider: Jackson Lopez Dx/Rx/DC Orders Clinical Impression: Diabetic foot infection, Diabetic foot ulcers, ESRD needing dialysis, Type 2 diabetes mellitus Instructions: Diabetes Foot Infections Tx Prescriptions: New clindamycin HCl 300 mg capsule 300 mg PO 4X/DAY 10 Days Qty: 40 0RF fluconazole [Diflucan] 150 mg tablet 150 mg PO DAILY Qty: 2 0RF Rx Instructions: 1 pill by mouth at start of antibiotics and 1 pill by mouth once antibiotics are completed hydrocodone-acetaminophen 7.5-325 mg tablet 1 tab PO Q6H PRN (Reason: pain) 3 Days Qty: 12 0RF No Action aspirin 81 mg tablet,delayed release (DR/EC) 81 mg PO DAILY cetirizine 10 mg tablet 10 mg PO DAILY dicyclomine 10 mg capsule 10 mg PO BID pantoprazole 40 mg tablet,delayed release (DR/EC) 40 mg PO DAILY lamotrigine 50 mg tablet,disintegrating 50 mg PO DAILY bumetanide 1 mg tablet 1 mg PO DAILY losartan 50 mg tablet 75 mg PO DAILY tamsulosin 0.4 mg capsule 0.4 mg PO QHS insulin aspart U-100 [Novolog FlexPen U-100 Insulin] 100 unit/mL (3 mL) insulin pen 6 - 10 unit subcut TID Patient Comments: 150-200 : 6U 200-250: 12u 250-300: 18 u anything over 300: call MD Frankel FlexTouch U100 Insulin 100 unit/mL (3 mL) insulin pen 22 unit subcut QHS sucralfate 100 mg/mL suspension 2 ml PO TID sennosides-docusate sodium [Senexon-S] 8.6-50 mg tablet 2 tab PO DAILY Patient Comments: TAKE 1-2 TABLETS BY MOUTH DAILY TO PREVENT CONSTIPATION promethazine 25 mg tablet 25 mg PO Q6H PRN (Reason: NAUSEA/VOMITING) atorvastatin 40 mg Tablet 40 mg PO QHS Qty: 30 1RF albuterol sulfate 2.5 mg /3 mL (0.083 %) Solution For Nebulization 2.5 mg INHALATION Q4H PRN (Reason: SOB) albuterol 90 mcg/actuation Aerosol 90 mcg INHALATION PRN PRN (Reason: SOB) B-complex with vitamin C Tablet 1 tab PO DAILY Velphoro 500 mg Tablet,Chewable 500 mg PO TID acetaminophen 500 mg Tablet 1,000 mg PO Q8 Qty: 0 0RF cyclobenzaprine 10 mg Tablet 10 mg PO TID PRN PRN (Reason: Breakthrough Pain (>4/10)) 7 Days Qty: 21 0RF gabapentin 100 mg capsule 300 mg PO QHS Qty: 21 0RF hydrocodone-acetaminophen 7.5-325 mg tablet 1 tab PO Q6H PRN (Reason: pain) 3 Days Qty: 12 0RF (DME) FreeStyle Gissell 2 Sensor Kit See Rx Instructions .Route Qty: 6 1RF Rx Instructions: 1 sensor q 14 days Primary Care Provider: Maddy Anaya Referrals: Maddy Anaya MD [Primary Care Provider] - Activity Restrictions/Additional Instructions: Your work-up today did not show signs of osteomyelitis in your blood markers for infection were normal. Your history and exam to indicate you are developing a diabetic foot ulcer that appears to be developing infection. Take antibiotics as directed and if you develop a fever over 100.4 or have worsening of symptoms despite taking the antibiotic please return for repeat evaluation. Disposition Disposition: Home, Self Care Discharge Date/Time: 04/12/23 01:25
[2023-04-11 23:02] LABS: Absolute Lymphocyte Count 1.41 X10^3/uL (0.83-4.51); Absolute Neutrophil Count 3.5 X10^3/uL (2.0-7.7); Basophil# 0.06 X10^3/uL; Basophil% 1.1 % (0-1); Eosinophil# 0.34 X10^3/uL; Eosinophils% 6.1 % (0-5); Hematocrit 35.3 % (37-47); Hemoglobin 11.3 g/dL (12.0-15.0); Lymphocyte # 1.41 X10^3/ul (0.83-4.51); Lymphocyte % 25.1 % (19-41); Mean Corpuscular Hgb 30.8 pg (27.0-32.0); Mean Corpuscular Volume 96.2 fL (81-99); Mean Platelet Vol. 9.4 fl (6.2-12.0); Monocyte# 0.29 X10^3/uL; Monocyte% 5.2 % (0-10); NRBC Flagged by Analyzer 0 % (0-5); Neutrophil # 3.48 X10^3/uL (2.7-7.7); Platelet Count 268 K/mm3 (150-450); RBC Distribution Width SD 49.1 fl (35.1-43.9); Red Blood Count 3.67 M/mm3 (4.2-5.4); White Blood Count 5.6 K/mm3 (4.4-11.0)
[2023-04-11] MEDS: HYDROcodone Bitartrate/Apap 5/325 Tablet PO (23:08)
[2023-04-11 23:19] LABS: Erythrocyte Sedimentation Rate 37 mm/hr (0-30)
[2023-04-11 23:25] LABS: Anion Gap 6 (5-15); BUN 33 mg/dL (7-18); BUN/Creat Ratio 5.9 RATIO (10-20); CRP < 2.90 mg/L (0.0-3.0); Calcium,Total 8.3 mg/dL (8.5-10.1); Chloride 101 mmol/L (98-107); Creatinine, Serum 5.58 mg/dL (0.55-1.02); EST Glomerular Filtration Rate 9 mL/min (>60); Est Glom Filt Rate - Afr Amer 11 mL/min (>60); Glucose 592 mg/dL (74-106); Phosphorus 4.7 mg/dL (2.5-4.9); Potassium 4.9 mmol/L (3.5-5.1); Sodium Level 132 mmol/L (136-145)
[2023-04-12] MEDS: Vancomycin IV 1,000 MG/200 ML BAG 200 MG IV (00:03)
[2023-04-12] MEDS: Insulin NPH Human 100 UNITS/ML PEN 15 UNITS SC (00:06)
[2023-04-12 00:12] VITALS: BP 173/83; PULSE 76; RESP 18; TEMP 36.4; O2SAT 98
[2023-04-12 00:15] LABS: Lactic Acid 1.3 mmol/L (0.4-1.9)
[2023-04-12 01:14] VITALS: BMI 48.2
[2023-04-12 01:15] VITALS: BP 189/91; RESP 16; O2SAT 97
== END 2023-04-12 01:25 | disposition home or self-care (01) ==
PROVIDERS: Emergency Provider Emergency Medicine; PCP Family Medicine; Visit Provider Emergency Medicine
DX: E11.65 Type 2 diabetes mellitus with hyperglycemia (principal); E11.621 Type 2 diabetes mellitus with foot ulcer; L97.509 Non-pressure chronic ulcer of other part of unspecified foot with unspecified severity; Z99.2 Dependence on renal dialysis; E11.628 Type 2 diabetes mellitus with other skin complications; E11.22 Type 2 diabetes mellitus with diabetic chronic kidney disease; I12.0 Hypertensive chronic kidney disease with stage 5 chronic kidney disease or end stage renal disease; N18.6 End stage renal disease; Z87.891 Personal history of nicotine dependence; E66.9 Obesity, unspecified
CPT/HCPCS: 73630; 80048; 83605; 84100; 85025; 85652; 86140; 87040; 87149; 96365; 96367; 99283; J7040; J7050; A4216

== ENCOUNTER → 2023-04-16 | Outpatient (CLI) | payer MEDICARE, MEDICAID, SELFPAY ==
--- NOTE | 2023-04-16 09:25 | RAD_ITS ---
STUDY: X-RAY - LUMBAR SPINE REASON FOR EXAM: Female, 48 years old. LOW BACK PAIN TECHNIQUE: 4 view(s) of the lumbar spine were obtained. COMPARISON: None FINDINGS: Normal lumbar lordosis. There is no substantial scoliosis. There is a normal alignment of the vertebrae. Mild anterior spondylosis at the L4-L5 and L5-S1 levels. Normal disc space heights. Large amount of fecal material is seen in the colon. RAD/L/S Spine Min 4 Views IMPRESSION: Degenerative changes of the spine, as detailed above. Electronically Signed: Vaughn Alves MD at 10:41 EDT ,
[2023-04-16 10:53] LABS: Free T3 1.9 pg/mL (2.18-3.98); T4 Total, Thyroxin 7.5 ug/dL (4.8-13.9); Thyroid Stim Hormone (TSH) 4.87 uIU/mL (0.358-3.74)
== END | disposition home or self-care (01) ==
PROVIDERS: Surgery; PCP Family Medicine; Referring Provider Anesthesiology Pain Medicine; Visit Provider Anesthesiology Pain Medicine
DX: E04.1 Nontoxic single thyroid nodule (principal); M54.50 Low back pain, unspecified
CPT/HCPCS: 36415; 72110; 84436; 84443; 84481

== ENCOUNTER 2023-04-28 20:30 | Emergency (ER) | payer MEDICARE, MEDICAID, SELFPAY ==
[2023-04-28 20:31] VITALS: BP 153/95; PULSE 85; RESP 20; TEMP 36.1; O2SAT 100; BMI 43.8
--- NOTE | 2023-04-28 21:24 | EX.ED.DYSGE1 ---
HPI History of Present Illness Chief Complaint: Abd Pain [facility] Medical History Anxiety Arthritis Asthma Fleming esophagus Blackout Bruising delivery delivered Chronic kidney disease Depression Dietary restriction Difficulty swallowing Disc disorder Easy bruising ESRD needing dialysis FH: cholecystectomy Former smoker Gastric reflux High cholesterol History of CHF (congestive heart failure) History of Clostridium difficile infection History of echocardiogram History of edema History of stress test History of ulceration Hypertension Hypertension Injury of head and neck Insulin dependent diabetes mellitus Left foot amputee (~2019) Left hand pain Loss of hearing Low iron Migraine headache On home oxygen therapy Seasonal allergies Shortness of breath on exertion Stroke (~2021) Syncope Thyroid disease Transitioned from acute care to home health care Uses wheelchair Vision impairment Walker as ambulation aid Wears glasses Home Medications aspirin 81 mg tablet,delayed release 81 mg PO DAILY HEART HEALTH 06/23/22 [History Last Taken 01/19/23] bumetanide 1 mg tablet 1 mg PO DAILY FLUID 06/23/22 [History Last Taken 01/19/23] cetirizine 10 mg tablet 10 mg PO DAILY ALLERGIES 06/23/22 [History Last Taken 01/19/23] dicyclomine 10 mg capsule 10 mg PO BID STOMACH 06/23/22 [History Last Taken 01/19/23] insulin aspart U-100 100 unit/mL (3 mL) subcutaneous pen (Novolog FlexPen U-100 Insulin aspart) 6 - 10 unit subcut TID DIABETES 06/23/22 [History Last Taken 08/31/22] lamotrigine 50 mg disintegrating tablet 50 mg PO DAILY MOOD 06/23/22 [History Last Taken 01/20/23] losartan 50 mg tablet 75 mg PO DAILY BLOOD PRESSURE 06/23/22 [History Last Taken 01/20/23] pantoprazole 40 mg tablet,delayed release 40 mg PO DAILY ACID REFLUX 06/23/22 [History Last Taken 01/20/23] tamsulosin 0.4 mg capsule 0.4 mg PO QHS BLADDER 06/23/22 [History Last Taken 01/19/23] promethazine 25 mg tablet 25 mg PO Q6H PRN NAUSEA/VOMITING 09/01/22 [History Last Taken Unknown] sennosides 8.6 mg-docusate sodium 50 mg tablet (Senexon-S) 2 tab PO DAILY CONSTIPATION 09/01/22 [History Last Taken 01/17/23] atorvastatin 40 mg tablet 40 mg PO QHS #30 tabs 09/04/22 [Rx Last Taken 01/19/23] insulin detemir U-100 100 unit/mL (3 mL) subcutaneous pen (Levemir FlexTouch U-100 Insulin) 22 unit subcut QHS DIABETES 11/12/22 [History Last Taken 01/19/23 13 UNITS] sucralfate 100 mg/mL oral suspension 2 ml PO TID 11/12/22 [History Last Taken 01/19/23] B-complex with vitamin C 1 tab PO DAILY 01/07/23 [History Last Taken 01/19/23] albuterol 90 mcg/actuation aerosol inhaler 90 mcg inhalation PRN PRN SOB 01/07/23 [History Last Taken 01/19/23] albuterol sulfate 2.5 mg/3 mL (0.083 %) solution for nebulization 2.5 mg inhalation Q4H PRN SOB 01/07/23 [History Last Taken 01/19/23] sucroferric oxyhydroxide 500 mg chewable tablet (Velphoro) 500 mg PO TID 01/07/23 [History Last Taken 01/19/23] acetaminophen 500 mg tablet 1,000 mg (2 x 500 mg) PO Q8 #0 tabs 01/22/23 [Rx Last Taken Unknown] cyclobenzaprine 10 mg tablet 10 mg PO TID PRN PRN Breakthrough Pain (>4/10) 7 days #21 tabs 01/22/23 [Rx Last Taken Unknown] gabapentin 100 mg capsule 300 mg (3 x 100 mg) PO QHS NERVE PAIN #21 caps 01/22/23 [Rx Last Taken Unknown] flash glucose sensor (FreeStyle Gissell 2 Sensor kit) #6 ea 03/16/23 [Rx Last Taken Unknown] hydrocodone 7.5 mg-acetaminophen 325 mg tablet 1 tab PO Q6H PRN pain 3 days #12 tabs 04/06/23 [Rx Last Taken Unknown] clindamycin HCl 300 mg capsule 300 mg PO 4X/DAY 10 days #40 caps 04/12/23 [Rx Last Taken Unknown] fluconazole 150 mg tablet (Diflucan) 150 mg PO DAILY #2 tabs 04/12/23 [Rx Last Taken Unknown] hydrocodone 7.5 mg-acetaminophen 325 mg tablet 1 tab PO Q6H PRN pain 3 days #12 tabs 04/12/23 [Rx Last Taken Unknown] cephalexin 500 mg capsule 500 mg PO TID #21 caps 04/28/23 [Rx Last Taken Unknown] Allergy/AdvReac Type Severity Reaction Status Date / Time lidocaine Allergy Severe Rash Verified 04/28/23 20:33 bacitracin Allergy Intermediate blisters Verified 04/28/23 20:33 hydrogen peroxide Allergy Intermediate blisters Verified 04/28/23 20:33 isopropyl alcohol Allergy Intermediate blisters Verified 04/28/23 20:33 Sulfa (Sulfonamide Allergy Intermediate Rash Verified 04/28/23 20:33 Antibiotics) Bleach (Sodium Hypochlorite) Allergy Hives Verified 04/28/23 20:33 insulin lispro Allergy HIVES, Verified 04/28/23 20:33 [From Humalog U-100 Insulin] REDNESS Latex, Natural Rubber Allergy Rash Verified 04/28/23 20:33 ondansetron [From Zofran] AdvReac Severe Constipatio Verified 04/28/23 22:13 n metformin AdvReac Vomiting Verified 04/28/23 20:33 neomycin AdvReac HIVES, Verified 04/28/23 20:33 [From Neosporin REDNESS ([id number])] polymyxin B AdvReac HIVES, Verified 04/28/23 20:33 [From Neosporin REDNESS ([id number])] zofran AdvReac Severe Constipatio Uncoded 04/28/23 22:13 n Family History Other Arthritis Asthma CVA (cerebral vascular accident) Diabetes Heart disease High cholesterol Hypertension Kidney disease Osteoporosis Seizures Surgical History H/O left knee surgery H/O right knee surgery History of arteriovenostomy for renal dialysis History of bladder surgery History of History of cholecystectomy History of foot surgery History of infusaport central venous catheter removal History of liver biopsy History of lumpectomy of right breast History of shoulder surgery History of thoracentesis Hx of tonsillectomy Social History household members: family housing: house Smoking Status: Former smoker alcohol intake: never EXAM Physical Exam Const Vital Signs: 04/28/23 20:31 04/28/23 23:43 Temperature 97 F L Temperature Source Temporal Pulse Rate 85 79 Respiratory Rate 20 H 15 Blood Pressure 153/95 H Blood Pressure Mean 114 Pulse Ox 100 97 Oxygen Delivery Method Room Air [facility] Narrative Medical decision making narrative: HISTORY OF PRESENT ILLNESS: 48-year-old female here with left lower quad abdominal pain started after dialysis. States he gets dialysis Wednesday. She states REVIEW OF SYSTEMS: Pertinent positives: Abdominal pain, urinary frequency Pertinent negatives: Nausea vomiting, chest pain PHYSICAL EXAM: Nursing triage notes reviewed, Vital signs reviewed Constitutional: please see [facility] HENT: MMM Eyes: Pupils equal round and reactive to light, Extraocular muscles intact Neck: No stridor, no JVD, full neck ROM Lungs: Clear to auscultation, No wheezing or rales. No increased work of breathing, no conversational dyspnea, no accessory muscle use, no nasal flaring. No respiratory distress noted Heart: Regular rate and rhythm, No murmurs, No rubs and No gallops, 2+ distal pulses (radial, femoral, posterior tibial) in all extremities Abdomen: Soft, there is left lower quad abdominal tenderness. There is no rigidity, rebound or guarding, no obvious peritoneal signs, no palpable pulsatile abdominal masses, no auscultated abdominal bruit : No CVAT Extremities: No edema Neuro: No focal neurological deficits, cranial nerves II through XII intact, 5/5 strength in all extremities. Intact sensation to light touch in all extremities, 2+ reflexes bilateral patella tendons. Normal gait. No ataxia. Skin: No rash or lesions noted MEDICAL DECISION MAKING: Chief Complaint: Abdominal pain Factors affecting care: ESRD, history abdominal surgeries, type 2 diabetes, hypertension Social determinants of health: Former smoker History obtained from others: EMS Consults: none ALL IMAGES (IF OBTAINED) HAVE BEEN PERSONALLY REVIEWED AND INTERPRETED BY MYSELF. [facility] Narrative: Patient was hemodynamically stable, afebrile, nontoxic-appearing. Exam I considered the following differential diagnosis: AAA, small bowel obstruction, abdominal perforation, appendicitis, pancreatitis, hepatobiliary pathology (acute cholecystitis), mesenteric ischemia, abnormalities such as ovarian pathology, PID. Patient exam with left lower quadrant tenderness most concerning for acute diverticulitis. CT scan was obtained and showed no evidence of acute diverticulitis or mass. Labs without evidence of significant systemic inflammation, no evidence of DKA with a normal bicarb and no anion gap. Patient did however have severe hyperglycemia with a glucose of 524. I attempted to treat the patient's hyperglycemia with insulin however she is allergic to the only short acting insulin we have in the hospital. Patient's urine was remarkable for UTI. This is likely exacerbating her underlying hyperglycemia. Patient's urine test was positive this was concerning for ectopic versus germ cell tumor. I offered the patient a transvaginal ultrasound to definitively rule out ectopic given his most life-threatening emergency with a positive hCG and lower abdominal pain. Patient refused ultrasound. She is alert and orient x3 no capacity to make his own medical decisions. I discussed risk and benefits of foregoing evaluation. Patient understood the risk decided to forego imaging at this time. Gave oral Keflex here. Sent urine for culture. Gave close [employer] follow-up and further outpatient evaluation of potential term cell tumor. Repeat abdominal exam was benign. The patient is appropriate discharge home. The patient and/or family, caregivers express understanding. The patient and/or family, caregivers agrees with the plan. Shared decision making: I will have a discussion with the patient and or visitors regarding risk/benefits of further testing or admission. They will be made aware of of the risk/benefits inherent in this decision they will be given the opportunity to voice understanding. Total critical care time today provided was at least 0 minutes. This excludes separately billable procedures. Critical care time (if documented) is secondary to the patient having high probability of clinically significant/life threatening deterioration in the patient's condition which required my urgent intervention. Lab Data Attestation: I reviewed the patient's lab results. Lab results narrative: CBC without leukocytosis, no anemia, no thrombocytopenia BMP with pseudohyponatremia, no Gilbert normalities, no anion gap, bicarb within normal limits low suspicion for DKA, ESRD noted LFTs show no evidence of hepatobiliary pathology. Urine consistent with infection hCG positive concerning for versus tumor Labs: Laboratory Results - last 24 hr 04/28/23 04/28/23 04/28/23 21:40 22:10 22:12 WBC 6.3 RBC 4.03 L Hgb 12.3 Hct 36.0 L MCV 89.3 MCH 30.5 MCHC 34.2 RDW Std Deviation 41.3 RDW Coeff of Juan 12.6 Plt Count 197 MPV 10.5 Immature Gran % (Auto) 0.300 Neut % (Auto) 69.7 Lymph % (Auto) 21.7 [place] % (Auto) 4.1 Eos % (Auto) 3.2 Baso % (Auto) 1.0 Absolute Neuts (auto) 4.4 Absolute Lymphs (auto) 1.36 Nucleated RBC % 0 Differential Comment SCANNED Sodium 132 L Potassium 4.6 Chloride 99 Carbon Dioxide 24.0 Anion Gap 9 BUN 18 Creatinine 3.03 H Estim Creat Clear Calc 22.32 Est GFR (MDRD) Af Amer 21 L Est GFR (MDRD) Non-Af 18 L BUN/Creatinine Ratio 5.9 L Glucose 524 H* Calcium 9.1 Total Bilirubin 0.40 Direct Bilirubin 0.13 AST 16 ALT 22 Alkaline Phosphatase 101 Total Protein 6.9 Albumin 3.2 Globulin 3.7 Lipase 37 Urine Color Brown Urine Clarity Cloudy Urine pH 6.0 Ur Specific [place] 1.015 Urine Protein 500 H Urine Glucose (UA) 250 H Urine Ketones 15 H Urine Occult Blood 250 H Urine Nitrite Negative Urine Bilirubin Negative Urine Urobilinogen Normal Ur Leukocyte Esterase 500 H Urine RBC > 100 SEEN Urine WBC >100 SEEN Ur Squamous Epith Cells 0 SEEN Urine Bacteria 3+ Urine Mucus 0 SEEN Urine Test Positive H Radiography Diagnostic Testing: Clinical Impression(s) from Imaging Studies Abdomen/Pelvis CT 04/28/23 21:26 IMPRESSION: Possible cystitis. No other acute findings in the abdomen or pelvis. Electronically Signed: Lan Piña MD at 22:18 EDT Reading Location ID and State: [facility] / [place] Tel , Service support , Discharge Plan Triage Chief Complaint: Abd Pain ED Provider: Joao Phillips Dx/Rx/DC Orders Clinical Impression: UTI (urinary tract infection), Pelvic pain with positive beta-human chorionic gonadotropin (BhCG) in female Instructions: ED Cystitis Female Adult Prescriptions: New cephalexin 500 mg capsule 500 mg PO TID Qty: 21 0RF No Action aspirin 81 mg tablet,delayed release (DR/EC) 81 mg PO DAILY cetirizine 10 mg tablet 10 mg PO DAILY dicyclomine 10 mg capsule 10 mg PO BID pantoprazole 40 mg tablet,delayed release (DR/EC) 40 mg PO DAILY lamotrigine 50 mg tablet,disintegrating 50 mg PO DAILY bumetanide 1 mg tablet 1 mg PO DAILY losartan 50 mg tablet 75 mg PO DAILY tamsulosin 0.4 mg capsule 0.4 mg PO QHS insulin aspart U-100 [Novolog FlexPen U-100 Insulin] 100 unit/mL (3 mL) insulin pen 6 - 10 unit subcut TID Patient Comments: 150-200 : 6U 200-250: 12u 250-300: 18 u anything over 300: call MD Frankel FlexTouch U100 Insulin 100 unit/mL (3 mL) insulin pen 22 unit subcut QHS sucralfate 100 mg/mL suspension 2 ml PO TID sennosides-docusate sodium [Senexon-S] 8.6-50 mg tablet 2 tab PO DAILY Patient Comments: TAKE 1-2 TABLETS BY MOUTH DAILY TO PREVENT CONSTIPATION promethazine 25 mg tablet 25 mg PO Q6H PRN (Reason: NAUSEA/VOMITING) atorvastatin 40 mg Tablet 40 mg PO QHS Qty: 30 1RF albuterol sulfate 2.5 mg /3 mL (0.083 %) Solution For Nebulization 2.5 mg INHALATION Q4H PRN (Reason: SOB) albuterol 90 mcg/actuation Aerosol 90 mcg INHALATION PRN PRN (Reason: SOB) B-complex with vitamin C Tablet 1 tab PO DAILY Velphoro 500 mg Tablet,Chewable 500 mg PO TID acetaminophen 500 mg Tablet 1,000 mg PO Q8 Qty: 0 0RF cyclobenzaprine 10 mg Tablet 10 mg PO TID PRN PRN (Reason: Breakthrough Pain (>4/10)) 7 Days Qty: 21 0RF gabapentin 100 mg capsule 300 mg PO QHS Qty: 21 0RF hydrocodone-acetaminophen 7.5-325 mg tablet 1 tab PO Q6H PRN (Reason: pain) 3 Days Qty: 12 0RF clindamycin HCl 300 mg capsule 300 mg PO 4X/DAY 10 Days Qty: 40 0RF fluconazole [Diflucan] 150 mg tablet 150 mg PO DAILY Qty: 2 0RF Rx Instructions: 1 pill by mouth at start of antibiotics and 1 pill by mouth once antibiotics are completed hydrocodone-acetaminophen 7.5-325 mg tablet 1 tab PO Q6H PRN (Reason: pain) 3 Days Qty: 12 0RF (DME) FreeStyle Gissell 2 Sensor Kit See Rx Instructions .Route Qty: 6 1RF Rx Instructions: 1 sensor q 14 days Primary Care Provider: Maddy Anaya Activity Restrictions/Additional Instructions: Thank you for trusting us with your care today! Please take Tylenol (2 pills, 650 mg), ibuprofen (2 pills, 400 mg) every 6 hours as needed for pain and fever control. Please take antibiotics as prescribed Please return to the emergency department if your symptoms change or worsen. Specifically develop worsening pain, you lose consciousness, you develop heavy vaginal bleeding. Please follow with [employer] for further outpatient evaluation and management. Whit Max [id number] Blair ? Disposition Disposition: Home, Self Care
--- NOTE | 2023-04-28 21:26 | CT_ITS ---
INDICATION: Left lower quadrant abdominal pain EXAMINATION: CT ABDOMEN AND PELVIS WITHOUT CONTRAST - CT Abdomen And Pelvis W/O Contrast Injection TECHNIQUE: Helically acquired images were obtained of the abdomen and pelvis without oral or IV contrast. A radiation dose optimization technique was used for this scan. IV Contrast dosage and agent: None. Oral contrast: None. COMPARISON: None. FINDINGS: LOWER CHEST: Lung bases are clear. No cardiomegaly or pericardial effusion. LIVER: Homogeneous. No focal mass. GALLBLADDER AND BILIARY TREE: Cholecystectomy. No intra- or extrahepatic biliary ductal dilation. PANCREAS: No focal cystic or solid mass. SPLEEN: Normal size without focal cystic or solid mass. ADRENAL GLANDS: No nodules. KIDNEYS AND URETERS: No nephrolithiasis or hydronephrosis. PERITONEUM: No ascites or free air. BOWEL: Normal appendix. No stomach or bowel distension. No focal inflammatory change. Small duodenal diverticulum. LYMPH NODES: No enlarged mesenteric or retroperitoneal lymph nodes. VESSELS: Aorta is non-dilated. URINARY BLADDER: Intraluminal gas. Mild circumferential wall thickening with adjacent stranding. REPRODUCTIVE ORGANS: No pelvic masses. ABDOMINAL WALL: Fat-containing umbilical hernia. BONES: No acute or aggressive abnormality. CT/Abdomen/Pelvis without Cont IMPRESSION: Possible cystitis. No other acute findings in the abdomen or pelvis. Electronically Signed: Lan Piña MD at 22:18 EDT ,
[2023-04-28 21:46] LABS: Absolute Lymphocyte Count 1.36 X10^3/uL (0.83-4.51); Absolute Neutrophil Count 4.4 X10^3/uL (2.0-7.7); Basophil# 0.06 X10^3/uL; Eosinophils% 3.2 % (0-5); Hemoglobin 12.3 g/dL (12.0-15.0); Lymphocyte # 1.36 X10^3/ul (0.83-4.51); Lymphocyte % 21.7 % (19-41); Mean Corp Hgb Conc 34.2 g/dL (32-36); Mean Corpuscular Hgb 30.5 pg (27.0-32.0); Mean Corpuscular Volume 89.3 fL (81-99); Mean Platelet Vol. 10.5 fl (6.2-12.0); Monocyte# 0.26 X10^3/uL; Monocyte% 4.1 % (0-10); NRBC Flagged by Analyzer 0 % (0-5); Neutrophil # 4.38 X10^3/uL (2.7-7.7); Neutrophil % 69.7 % (47-70); POSITIVE COUNT YES; Platelet Count 197 K/mm3 (150-450); RBC Distribution Width CV 12.6 % (11.6-14.6); RBC Distribution Width SD 41.3 fl (35.1-43.9); Red Blood Count 4.03 M/mm3 (4.2-5.4); White Blood Count 6.3 K/mm3 (4.4-11.0)
[2023-04-28 21:47] LABS: Differential Indicated SCAN CRITERIA MET
[2023-04-28] MEDS: Morphine 4 MG/ML Syringe IV (22:15)
[2023-04-28 22:31] LABS: AST(SGOT) 16 U/L (15-37); Alanine Aminotransfer ALT/SGPT 22 U/L (13-56); Albumin, Serum 3.2 g/dL (3.2-5.0); Alkaline Phosphatase 101 U/L (45-117); Anion Gap 9 (5-15); BUN 18 mg/dL (7-18); BUN/Creat Ratio 5.9 RATIO (10-20); Bilirubin, Direct 0.13 mg/dL (0.00-0.30); Calcium,Total 9.1 mg/dL (8.5-10.1); Chloride 99 mmol/L (98-107); Creatinine, Serum 3.03 mg/dL (0.55-1.02); EST Glomerular Filtration Rate 18 mL/min (>60); Est Glom Filt Rate - Afr Amer 21 mL/min (>60); Estimated Creatinine Clearance 22.32 ml/min; Globulin 3.7 g/dL (2.2-4.2); Glucose 524 mg/dL (74-106); Lipase 37 U/L (13-75); Potassium 4.6 mmol/L (3.5-5.1); Protein, Total 6.9 g/dL (6.4-8.2); Sodium Level 132 mmol/L (136-145)
[2023-04-28 22:33] LABS: Differential Comment SCANNED
[2023-04-28 22:40] LABS: Mucous, Urine 0 SEEN /hpf (<or=2+); Squamous Epithelial Cells - UA 0 SEEN /hpf (5-10)
[2023-04-28 22:47] LABS: Color, Urine Brown (Yellow); Glucose, Dipstick 250 mg/dl (Normal); Ketone-Dipstick 15 mg/dl (Negative); Leukocyte Esterase-Dipstick 500 /ul (Negative); Nitrite-Dipstick Negative (Negative); Occult Blood-Urine 250 /ul (Negative); Protein-Dipstick 500 mg/dl (Negative); Specific Gravity, Urine 1.015 (1.002-1.030); Urine Bilirubin Dipstick Negative (Negative); Urine Clarity Cloudy (Clear); Urine Urobilinogen Normal (Normal)
[2023-04-28 22:48] LABS: Internal QC Validated? YES +Cl - CLEAR BKGD
[2023-04-28 22:49] LABS: Pregnancy, Urine Positive Negative
[2023-04-28 23:08] LABS: Red Blood Cells-Urine > 100 SEEN /hpf (0-5); White Blood Cells >100 SEEN /hpf (0-5)
[2023-04-28 23:09] LABS: Bacteria 3+ /hpf (None Seen)
[2023-04-28 23:43] VITALS: PULSE 79; RESP 15; O2SAT 97
[2023-04-29] MEDS: Cephalexin 250 MG Capsule 500 MG PO (00:10)
== END 2023-04-29 00:12 | disposition home or self-care (01) ==
PROVIDERS: Emergency Provider Emergency Medicine; PCP Family Medicine; Visit Provider Emergency Medicine
DX: N39.0 Urinary tract infection, site not specified (principal); Z99.2 Dependence on renal dialysis; E11.22 Type 2 diabetes mellitus with diabetic chronic kidney disease; E11.65 Type 2 diabetes mellitus with hyperglycemia; I12.0 Hypertensive chronic kidney disease with stage 5 chronic kidney disease or end stage renal disease; N18.6 End stage renal disease; Z87.891 Personal history of nicotine dependence; R10.2 Pelvic and perineal pain; Z79.82 Long term (current) use of aspirin
CPT/HCPCS: 74176; 80048; 80076; 81001; 81025; 83690; 85025; 87077; 87086; 87088; 87186; 96374; 99284; A4216; J2405

== ENCOUNTER 2023-05-24 14:33 | Emergency (ER) | payer MEDICARE, MEDICAID, SELFPAY ==
[2023-05-24 14:36] VITALS: BP 181/71; PULSE 73; RESP 18; TEMP 36.4; O2SAT 100
[2023-05-24 15:38] LABS: Absolute Lymphocyte Count 1.63 X10^3/uL (0.83-4.51); Absolute Neutrophil Count 3.6 X10^3/uL (2.0-7.7); Basophil# 0.06 X10^3/uL; Eosinophils% 3.5 % (0-5); Hematocrit 31.3 % (37-47); Hemoglobin 10.6 g/dL (12.0-15.0); Lymphocyte # 1.63 X10^3/ul (0.83-4.51); Lymphocyte % 28.3 % (19-41); Mean Corp Hgb Conc 33.9 g/dL (32-36); Mean Corpuscular Hgb 30.7 pg (27.0-32.0); Mean Corpuscular Volume 90.7 fL (81-99); Mean Platelet Vol. 9.7 fl (6.2-12.0); Monocyte# 0.28 X10^3/uL; Monocyte% 4.9 % (0-10); NRBC Flagged by Analyzer 0 % (0-5); Neutrophil # 3.56 X10^3/uL (2.7-7.7); Platelet Count 223 K/mm3 (150-450); RBC Distribution Width CV 12.7 % (11.6-14.6); RBC Distribution Width SD 41.3 fl (35.1-43.9); Red Blood Count 3.45 M/mm3 (4.2-5.4); White Blood Count 5.8 K/mm3 (4.4-11.0)
[2023-05-24 15:46] LABS: Anion Gap 5 (5-15); BUN 36 mg/dL (7-18); BUN/Creat Ratio 8.1 RATIO (10-20); Calcium,Total 8.8 mg/dL (8.5-10.1); Chloride 105 mmol/L (98-107); Creatinine, Serum 4.45 mg/dL (0.55-1.02); EST Glomerular Filtration Rate 11 mL/min (>60); Est Glom Filt Rate - Afr Amer 14 mL/min (>60); Glucose 426 mg/dL (74-106); Potassium 4.6 mmol/L (3.5-5.1); Sodium Level 134 mmol/L (136-145)
--- NOTE | 2023-05-24 15:49 | CT_ITS ---
EXAM: CT ABDOMEN AND PELVIS WITHOUT INTRAVENOUS CONTRAST CLINICAL INDICATION: llq abdominal pain TECHNIQUE: Helically acquired images were obtained of the abdomen and pelvis without intravenous contrast. This CT exam was performed using one or more of the following dose reduction techniques: automated exposure control, adjustment of the mA and/or kV according to patient size, and/or use of iterative reconstruction technique. COMPARISON: No relevant prior studies available. FINDINGS: LOWER THORAX: Unremarkable. Lung bases are clear. No cardiomegaly. No significant pericardial effusion. ABDOMEN: LIVER: Unremarkable. Homogeneous. GALLBLADDER AND BILE DUCTS: Gallbladder is surgically absent. No intra- or extrahepatic biliary ductal dilation. PANCREAS: Unremarkable. No focal cystic mass. SPLEEN: Unremarkable. Normal size without focal cystic or solid mass. ADRENALS: Unremarkable. No nodules. KIDNEYS AND URETERS: Unremarkable. Normal renal size and position. No hydronephrosis. STOMACH AND BOWEL: Unremarkable. No stomach or bowel distention. No focal inflammatory change. PELVIS: APPENDIX: Normal visualized appendix. BLADDER: Focus of gas in the bladder. This is consistent with recent catheterization or procedure. Otherwise, consider infection or fistula. REPRODUCTIVE: Unremarkable as visualized. No mass. ABDOMEN and PELVIS: INTRAPERITONEAL SPACE: Unremarkable. No ascites or other fluid collection. No free air. BONES/JOINTS: Unremarkable. No suspicious lytic or blastic abnormality. SOFT TISSUES: Unremarkable. No discrete abdominal or pelvic wall hernia. VASCULATURE: Unremarkable. Abdominal aorta is normal in caliber. LYMPH NODES: Unremarkable. No enlarged lymph nodes. CT/Abdomen/Pelvis without Cont IMPRESSION: No acute findings. Electronically Signed: Bernadette Franklin MD at 17:39 EDT Reading Location ID and State: [id number] / Tel , Service support ,
[2023-05-24 16:18] LABS: Bacteria 0 SEEN /hpf (None Seen); Mucous, Urine 0 SEEN /hpf (<or=2+); Red Blood Cells-Urine 0 SEEN /hpf (0-5); Squamous Epithelial Cells - UA 0 SEEN /hpf (5-10); White Blood Cells 0 SEEN /hpf (0-5)
[2023-05-24 16:37] LABS: Color, Urine Yellow (Yellow); Glucose, Dipstick 1000 mg/dl (Normal); Ketone-Dipstick Negative (Negative); Leukocyte Esterase-Dipstick Negative /ul (Negative); Nitrite-Dipstick Negative (Negative); Occult Blood-Urine 25 /ul (Negative); Protein-Dipstick 500 mg/dl (Negative); Specific Gravity, Urine 1.015 (1.002-1.030); Urine Bilirubin Dipstick Negative (Negative); Urine Clarity Cloudy (Clear); Urine Urobilinogen Normal (Normal)
--- NOTE | 2023-05-24 16:50 | EDS_ITS ---
HPI HPI - Female History of Present Illness Chief Complaint: Complaint Narrative Narrative: 48-year-old female with end-stage renal disease on dialysis Wednesday, Wednesday, Wednesday presenting with some suprapubic pain and bilateral flank pain. She states she does not have stacie dysuria but every time she urinates she gets pain in the flanks. It is greater on the left. Also noted she has had some diarrhea with pain on the left as well. She states she has gastroparesis and always has black stools because of this. She states she did have a bowel movement prior to arrival. She denies nausea or vomiting currently. She is chronically on Phenergan and takes this at home. She also took a pain pill before she came and she is on [place] chronically due to chronic pain. Patient does not have any fevers or chills. Patient missed dialysis today. 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 [facility] Medical History Anxiety Arthritis Asthma Fleming esophagus Blackout Bruising delivery delivered Chronic kidney disease Depression Dietary restriction Difficulty swallowing Disc disorder Easy bruising ESRD needing dialysis FH: cholecystectomy Former smoker Gastric reflux High cholesterol History of CHF (congestive heart failure) History of Clostridium difficile infection History of echocardiogram History of edema History of stress test History of ulceration Hypertension Hypertension Injury of head and neck Insulin dependent diabetes mellitus Left foot amputee (~2019) Left hand pain Loss of hearing Low iron Migraine headache On home oxygen therapy Seasonal allergies Shortness of breath on exertion Stroke (~2021) Syncope Thyroid disease Transitioned from acute care to home health care Uses wheelchair Vision impairment Walker as ambulation aid Wears glasses Home Medications aspirin 81 mg tablet,delayed release 81 mg PO DAILY HEART HEALTH 06/23/22 [History Last Taken 01/19/23] bumetanide 1 mg tablet 1 mg PO DAILY FLUID 06/23/22 [History Last Taken 01/19/23] cetirizine 10 mg tablet 10 mg PO DAILY ALLERGIES 06/23/22 [History Last Taken 01/19/23] dicyclomine 10 mg capsule 10 mg PO BID STOMACH 06/23/22 [History Last Taken 01/19/23] insulin aspart U-100 100 unit/mL (3 mL) subcutaneous pen (Novolog FlexPen U-100 Insulin aspart) 6 - 10 unit subcut TID DIABETES 06/23/22 [History Last Taken 08/31/22] lamotrigine 50 mg disintegrating tablet 50 mg PO DAILY MOOD 06/23/22 [History Last Taken 01/20/23] losartan 50 mg tablet 75 mg PO DAILY BLOOD PRESSURE 06/23/22 [History Last Taken 01/20/23] pantoprazole 40 mg tablet,delayed release 40 mg PO DAILY ACID REFLUX 06/23/22 [History Last Taken 01/20/23] tamsulosin 0.4 mg capsule 0.4 mg PO QHS BLADDER 06/23/22 [History Last Taken 01/19/23] promethazine 25 mg tablet 25 mg PO Q6H PRN NAUSEA/VOMITING 09/01/22 [History Last Taken Unknown] sennosides 8.6 mg-docusate sodium 50 mg tablet (Senexon-S) 2 tab PO DAILY CONSTIPATION 09/01/22 [History Last Taken 01/17/23] atorvastatin 40 mg tablet 40 mg PO QHS #30 tabs 09/04/22 [Rx Last Taken 01/19/23] sucralfate 100 mg/mL oral suspension 2 ml PO TID 11/12/22 [History Last Taken 01/19/23] B-complex with vitamin C 1 tab PO DAILY 01/07/23 [History Last Taken 01/19/23] albuterol 90 mcg/actuation aerosol inhaler 90 mcg inhalation PRN PRN SOB 01/07/23 [History Last Taken 01/19/23] albuterol sulfate 2.5 mg/3 mL (0.083 %) solution for nebulization 2.5 mg inhalation Q4H PRN SOB 01/07/23 [History Last Taken 01/19/23] sucroferric oxyhydroxide 500 mg chewable tablet (Velphoro) 500 mg PO TID 01/07/23 [History Last Taken 01/19/23] acetaminophen 500 mg tablet 1,000 mg (2 x 500 mg) PO Q8 #0 tabs 01/22/23 [Rx Last Taken Unknown] cyclobenzaprine 10 mg tablet 10 mg PO TID PRN PRN Breakthrough Pain (>4/10) 7 days #21 tabs 01/22/23 [Rx Last Taken Unknown] gabapentin 100 mg capsule 300 mg (3 x 100 mg) PO QHS NERVE PAIN #21 caps 01/22/23 [Rx Last Taken Unknown] flash glucose sensor (FreeStyle Gissell 2 Sensor kit) #6 ea 03/16/23 [Rx Last Taken Unknown] hydrocodone 7.5 mg-acetaminophen 325 mg tablet 1 tab PO Q6H PRN pain 3 days #12 tabs 04/06/23 [Rx Last Taken Unknown] clindamycin HCl 300 mg capsule 300 mg PO 4X/DAY 10 days #40 caps 04/12/23 [Rx Last Taken Unknown] fluconazole 150 mg tablet (Diflucan) 150 mg PO DAILY #2 tabs 04/12/23 [Rx Last Taken Unknown] hydrocodone 7.5 mg-acetaminophen 325 mg tablet 1 tab PO Q6H PRN pain 3 days #12 tabs 04/12/23 [Rx Last Taken Unknown] cephalexin 500 mg capsule 500 mg PO TID #21 caps 04/28/23 [Rx Last Taken Unknown] insulin detemir U-100 100 unit/mL (3 mL) subcutaneous pen 26 unit (0.26 mL) subcut QHS DIABETES #30 mL 05/21/23 [Rx Last Taken Unknown] Allergy/AdvReac Type Severity Reaction Status Date / Time lidocaine Allergy Severe Rash Verified 05/24/23 14:36 bacitracin Allergy Intermediate blisters Verified 05/24/23 14:36 hydrogen peroxide Allergy Intermediate blisters Verified 05/24/23 14:36 isopropyl alcohol Allergy Intermediate blisters Verified 05/24/23 14:36 Sulfa (Sulfonamide Allergy Intermediate Rash Verified 05/24/23 14:36 Antibiotics) Bleach (Sodium Hypochlorite) Allergy Hives Verified 05/24/23 14:36 insulin lispro Allergy HIVES, Verified 05/24/23 14:36 [From Humalog U-100 Insulin] REDNESS Latex, Natural Rubber Allergy Rash Verified 05/24/23 14:36 ondansetron [From Zofran] AdvReac Severe Constipatio Verified 05/24/23 14:36 n metformin AdvReac Vomiting Verified 05/24/23 14:36 neomycin AdvReac HIVES, Verified 05/24/23 14:36 [From Neosporin REDNESS ([id number])] polymyxin B AdvReac HIVES, Verified 05/24/23 14:36 [From Neosporin REDNESS ([id number])] Family History Other Arthritis Asthma CVA (cerebral vascular accident) Diabetes Heart disease High cholesterol Hypertension Kidney disease Osteoporosis Seizures Surgical History H/O left knee surgery H/O right knee surgery History of arteriovenostomy for renal dialysis History of bladder surgery History of History of cholecystectomy History of foot surgery History of infusaport central venous catheter removal History of liver biopsy History of lumpectomy of right breast History of shoulder surgery History of thoracentesis Hx of tonsillectomy Social History household members: family housing: house Smoking Status: Former smoker alcohol intake: never ROS ROS ED Constitutional Constitutional ED: Denies chills, fever(s) or sweats Eyes Eyes: Denies blurry vision or change in vision ENT ENT ED: Denies ear pain or sore throat Cardiovascular Cardiovascular: Denies chest pain, palpitations or racing heartbeat Respiratory/Chest Respiratory/Chest: Denies cough, dyspnea or sputum Gastrointestinal Gastrointestinal: Reports abdominal pain and nausea; Denies constipation, diarrhea or vomiting Genitourinary Genitourinary ED: Denies dysuria, hematuria or urinary frequency Musculoskeletal Musculoskeletal: Reports other Details: BACK PAIN ; Denies arthralgias, myalgias or neck pain Integumentary Denies abscess, Abrasions or rash Neurologic Neurologic: Denies headache(s), paresthesias or weakness Psychiatric Psychiatric: Denies anxiety, depression, suicidal ideation or suicidal thoughts Endocrine Endocrinology: Denies polydipsia or polyuria EXAM Physical Exam Const Vital Signs: 05/24/23 14:36 Temperature 97.5 F L Temperature Source Temporal Pulse Rate 73 Respiratory Rate 18 Blood Pressure 181/71 H Blood Pressure Mean 107 Pulse Ox 100 Oxygen Delivery Method Room Air Positive well nourished HEENT Reports moist mucous membranes Eyes PERRL and EOMs intact bilaterally Resp normal respiratory effort Cardio regular rate and regular rhythm GI Palpation: tender LLQ Back/Spine General Back: CVA tenderness left Extremity normal to inspection Neuro oriented x3 and CN's II-XII intact bilaterally Sensorium / Orientation: alert Motor Exam: strength 5/5 throughout Psych mental status grossly normal Skin no rashes or lesions noted MDM MDM MDM Narrative Medical decision making narrative: Patient presenting with some abdominal pain above the umbilicus as well as left flank pain and left lower quadrant pain. Has a history of gastroparesis and constipation but she has had some diarrhea recently. History of C. difficile in the past but no fevers, chills. She also has history of kidney stone. Differential includes colitis, diverticulitis, UTI, pyelonephritis, kidney stone colitis. CBC was obtained to assess white blood cell count, hemoglobin, platelets, differential. BMP to assess renal function electrolytes, glucose. Urinalysis to assess for UTI and occult blood. CT scan without contrast will be obtained as well. Patient declines analgesia and antiemetics because she took [place] and Phenergan before she came. CBC is within normal limits. BMP expected as she end-stage renal disease on dialysis. She did miss dialysis today. Urinalysis was negative for infection. CT of the abdomen pelvis without contrast was obtained and was negative. Patient counseled on findings and I recommended that she follow-up with nephrology to determine her next dialysis day. She has pain and nausea medication at home. Impression: 1. Abdominal pain Lab Data Attestation: I reviewed the patient's lab results. Labs: Laboratory Results - last 24 hr 05/24/23 05/24/23 15:20 16:14 WBC 5.8 RBC 3.45 L Hgb 10.6 L Hct 31.3 L MCV 90.7 MCH 30.7 MCHC 33.9 RDW Std Deviation 41.3 RDW Coeff of Juan 12.7 Plt Count 223 MPV 9.7 Immature Gran % (Auto) 0.300 Neut % (Auto) 62.0 Lymph % (Auto) 28.3 Mason % (Auto) 4.9 Eos % (Auto) 3.5 Baso % (Auto) 1.0 Absolute Neuts (auto) 3.6 Absolute Lymphs (auto) 1.63 Nucleated RBC % 0 Sodium 134 L Potassium 4.6 Chloride 105 Carbon Dioxide 24.0 Anion Gap 5 BUN 36 H Creatinine 4.45 H Est GFR (MDRD) Af Amer 14 L Est GFR (MDRD) Non-Af 11 L BUN/Creatinine Ratio 8.1 L Glucose 426 H Calcium 8.8 Urine Color Yellow Urine Clarity Cloudy Urine pH 6.0 Ur Specific [place] 1.015 Urine Protein 500 H Urine Glucose (UA) 1000 H Urine Ketones Negative Urine Occult Blood 25 H Urine Nitrite Negative Urine Bilirubin Negative Urine Urobilinogen Normal Ur Leukocyte Esterase Negative Urine RBC 0 SEEN Urine WBC 0 SEEN Ur Squamous Epith Cells 0 SEEN Amorphous Sediment 3+ Urine Bacteria 0 SEEN Urine Mucus 0 SEEN Radiography Diagnostic Testing: Clinical Impression(s) from Imaging Studies Abdomen/Pelvis CT 05/24/23 15:49 IMPRESSION: No acute findings. Electronically Signed: Bernadette Franklin MD at 17:39 EDT Reading Location ID and State: [id number] / Tel , Service support , Discharge Plan Triage Chief Complaint: Complaint ED Provider: Michelet Garzon Dx/Rx/DC Orders Instructions: ED Abdominal Pain Unkn Cause Fem Prescriptions: No Action aspirin 81 mg tablet,delayed release (DR/EC) 81 mg PO DAILY cetirizine 10 mg tablet 10 mg PO DAILY dicyclomine 10 mg capsule 10 mg PO BID pantoprazole 40 mg tablet,delayed release (DR/EC) 40 mg PO DAILY lamotrigine 50 mg tablet,disintegrating 50 mg PO DAILY bumetanide 1 mg tablet 1 mg PO DAILY losartan 50 mg tablet 75 mg PO DAILY tamsulosin 0.4 mg capsule 0.4 mg PO QHS insulin aspart U-100 [Novolog FlexPen U-100 Insulin] 100 unit/mL (3 mL) insulin pen 6 - 10 unit subcut TID Patient Comments: 150-200 : 6U 200-250: 12u 250-300: 18 u anything over 300: call sucralfate 100 mg/mL suspension 2 ml PO TID sennosides-docusate sodium [Senexon-S] 8.6-50 mg tablet 2 tab PO DAILY Patient Comments: TAKE 1-2 TABLETS BY MOUTH DAILY TO PREVENT CONSTIPATION promethazine 25 mg tablet 25 mg PO Q6H PRN (Reason: NAUSEA/VOMITING) atorvastatin 40 mg Tablet 40 mg PO QHS Qty: 30 1RF albuterol sulfate 2.5 mg /3 mL (0.083 %) Solution For Nebulization 2.5 mg INHALATION Q4H PRN (Reason: SOB) albuterol 90 mcg/actuation Aerosol 90 mcg INHALATION PRN PRN (Reason: SOB) B-complex with vitamin C Tablet 1 tab PO DAILY Velphoro 500 mg Tablet,Chewable 500 mg PO TID acetaminophen 500 mg Tablet 1,000 mg PO Q8 Qty: 0 0RF cyclobenzaprine 10 mg Tablet 10 mg PO TID PRN PRN (Reason: Breakthrough Pain (>4/10)) 7 Days Qty: 21 0RF gabapentin 100 mg capsule 300 mg PO QHS Qty: 21 0RF hydrocodone-acetaminophen 7.5-325 mg tablet 1 tab PO Q6H PRN (Reason: pain) 3 Days Qty: 12 0RF cephalexin 500 mg capsule 500 mg PO TID Qty: 21 0RF clindamycin HCl 300 mg capsule 300 mg PO 4X/DAY 10 Days Qty: 40 0RF fluconazole [Diflucan] 150 mg tablet 150 mg PO DAILY Qty: 2 0RF Rx Instructions: 1 pill by mouth at start of antibiotics and 1 pill by mouth once antibiotics are completed hydrocodone-acetaminophen 7.5-325 mg tablet 1 tab PO Q6H PRN (Reason: pain) 3 Days Qty: 12 0RF (DME) FreeStyle Gissell 2 Sensor Kit See Rx Instructions .Route Qty: 6 1RF Rx Instructions: 1 sensor q 14 days Levemir FlexTouch U100 Insulin 100 unit/mL (3 mL) insulin pen 26 unit subcut QHS Qty: 30 0RF Primary Care Provider: Maddy Anaya Referrals: Maddy Anaya MD [Primary Care Provider] - Disposition Disposition: Home, Self Care Discharge Date/Time: 05/24/23 18:11
[2023-05-24 16:53] LABS: Amorphous Sediment 3+
== END 2023-05-24 18:11 | disposition home or self-care (01) ==
PROVIDERS: Emergency Provider Student in an Organized Health Care Education/Training Program; PCP Family Medicine; Visit Provider Student in an Organized Health Care Education/Training Program
DX: R10.9 Unspecified abdominal pain (principal); Z99.2 Dependence on renal dialysis; N18.6 End stage renal disease; I12.0 Hypertensive chronic kidney disease with stage 5 chronic kidney disease or end stage renal disease; G89.29 Other chronic pain; Z87.891 Personal history of nicotine dependence; Z79.899 Other long term (current) drug therapy; Z86.73 Personal history of transient ischemic attack (TIA), and cerebral infarction without residual deficits; Z90.49 Acquired absence of other specified parts of digestive tract; Z79.82 Long term (current) use of aspirin; R60.9 Edema, unspecified; K21.9 Gastro-esophageal reflux disease without esophagitis
CPT/HCPCS: 74176; 80048; 81001; 85025; 99284; P9612; A4216

== ENCOUNTER 2023-06-27 12:05 | Emergency (ER) | payer MEDICARE, MEDICAID, SELFPAY ==
[2023-06-27 12:07] VITALS: BP 177/70; PULSE 76; RESP 12; TEMP 35.9; O2SAT 100; BMI 45.2
--- NOTE | 2023-06-27 12:23 | EX.ED.DYSGE1 ---
HPI <LOUISE Fields - Last Filed: 06/27/23 15:15> History of Present Illness Chief Complaint: Chest Pain Narrative Narrative: Patient is a 48-year-old female with history of kidney failure on hemodialysis, anemia, type 2 diabetes, depression, chronic pain who presents to the emergency department with chest pain and nausea and vomiting. Patient states over the last 24 hours has had multiple episodes of nausea and vomiting. Today approximately 2 hours ago, she developed chest tightness and sharp chest pain. She did go to her dialysis Wednesday this last week does not missed any treatments. She states the pain is sharp and stabbing. She also feels a pressure-like sensation. She denies any cough or fever or chills. PFSH <LOUISE Fields - Last Filed: 06/27/23 15:15> [facility] Medical History Anxiety Arthritis Asthma Fleming esophagus Blackout Bruising delivery delivered Chronic kidney disease Depression Dietary restriction Difficulty swallowing Disc disorder Easy bruising ESRD needing dialysis FH: cholecystectomy Former smoker Gastric reflux High cholesterol History of CHF (congestive heart failure) History of Clostridium difficile infection History of echocardiogram History of edema History of stress test History of ulceration Hypertension Hypertension Injury of head and neck Insulin dependent diabetes mellitus Left foot amputee (~2019) Left hand pain Loss of hearing Low iron Migraine headache On home oxygen therapy Seasonal allergies Shortness of breath on exertion Stroke (~2021) Syncope Thyroid disease Transitioned from acute care to home health care Uses wheelchair Vision impairment Walker as ambulation aid Wears glasses Home Medications aspirin 81 mg tablet,delayed release 81 mg PO DAILY HEART HEALTH 06/23/22 [History Last Taken 01/19/23] bumetanide 1 mg tablet 1 mg PO DAILY FLUID 06/23/22 [History Last Taken 01/19/23] cetirizine 10 mg tablet 10 mg PO DAILY ALLERGIES 06/23/22 [History Last Taken 01/19/23] dicyclomine 10 mg capsule 10 mg PO BID STOMACH 06/23/22 [History Last Taken 01/19/23] lamotrigine 50 mg disintegrating tablet 50 mg PO DAILY MOOD 06/23/22 [History Last Taken 01/20/23] losartan 50 mg tablet 75 mg PO DAILY BLOOD PRESSURE 06/23/22 [History Last Taken 01/20/23] pantoprazole 40 mg tablet,delayed release 40 mg PO DAILY ACID REFLUX 06/23/22 [History Last Taken 01/20/23] tamsulosin 0.4 mg capsule 0.4 mg PO QHS BLADDER 06/23/22 [History Last Taken 01/19/23] promethazine 25 mg tablet 25 mg PO Q6H PRN NAUSEA/VOMITING 09/01/22 [History Last Taken Unknown] sennosides 8.6 mg-docusate sodium 50 mg tablet (Senexon-S) 2 tab PO DAILY CONSTIPATION 09/01/22 [History Last Taken 01/17/23] atorvastatin 40 mg tablet 40 mg PO QHS #30 tabs 09/04/22 [Rx Last Taken 01/19/23] sucralfate 100 mg/mL oral suspension 2 ml PO TID 11/12/22 [History Last Taken 01/19/23] B-complex with vitamin C 1 tab PO DAILY 01/07/23 [History Last Taken 01/19/23] albuterol 90 mcg/actuation aerosol inhaler 90 mcg inhalation PRN PRN SOB 01/07/23 [History Last Taken 01/19/23] albuterol sulfate 2.5 mg/3 mL (0.083 %) solution for nebulization 2.5 mg inhalation Q4H PRN SOB 01/07/23 [History Last Taken 01/19/23] sucroferric oxyhydroxide 500 mg chewable tablet (Velphoro) 500 mg PO TID 01/07/23 [History Last Taken 01/19/23] acetaminophen 500 mg tablet 1,000 mg (2 x 500 mg) PO Q8 #0 tabs 01/22/23 [Rx Last Taken Unknown] cyclobenzaprine 10 mg tablet 10 mg PO TID PRN PRN Breakthrough Pain (>4/10) 7 days #21 tabs 01/22/23 [Rx Last Taken Unknown] gabapentin 100 mg capsule 300 mg (3 x 100 mg) PO QHS NERVE PAIN #21 caps 01/22/23 [Rx Last Taken Unknown] flash glucose sensor (FreeStyle Gissell 2 Sensor kit) #6 ea 03/16/23 [Rx Last Taken Unknown] hydrocodone 7.5 mg-acetaminophen 325 mg tablet 1 tab PO Q6H PRN pain 3 days #12 tabs 04/06/23 [Rx Last Taken Unknown] clindamycin HCl 300 mg capsule 300 mg PO 4X/DAY 10 days #40 caps 04/12/23 [Rx Last Taken Unknown] fluconazole 150 mg tablet (Diflucan) 150 mg PO DAILY #2 tabs 04/12/23 [Rx Last Taken Unknown] hydrocodone 7.5 mg-acetaminophen 325 mg tablet 1 tab PO Q6H PRN pain 3 days #12 tabs 04/12/23 [Rx Last Taken Unknown] cephalexin 500 mg capsule 500 mg PO TID #21 caps 04/28/23 [Rx Last Taken Unknown] insulin detemir U-100 100 unit/mL (3 mL) subcutaneous pen 26 unit (0.26 mL) subcut QHS DIABETES #30 mL 05/21/23 [Rx Last Taken Unknown] Novolog FlexPen U-100 Insulin 100 unit/mL (3 mL) subcutaneous (insulin aspart U-100) 6 - 10 unit (0.06 - 0.1 mL) subcut TID DIABETES #15 mL 05/27/23 [Rx Last Taken Unknown] pen needle, diabetic 32 gauge x 5/32 (BD Ultra-Fine Laura Pen Needle) #400 ea 05/27/23 [Rx Last Taken Unknown] Allergy/AdvReac Type Severity Reaction Status Date / Time lidocaine Allergy Severe Rash Verified 06/27/23 12:06 bacitracin Allergy Intermediate blisters Verified 06/27/23 12:06 hydrogen peroxide Allergy Intermediate blisters Verified 06/27/23 12:06 isopropyl alcohol Allergy Intermediate blisters Verified 06/27/23 12:06 Sulfa (Sulfonamide Allergy Intermediate Rash Verified 06/27/23 12:06 Antibiotics) Bleach (Sodium Hypochlorite) Allergy Hives Verified 06/27/23 12:06 insulin lispro Allergy HIVES, Verified 06/27/23 12:06 [From Humalog U-100 Insulin] REDNESS Latex, Natural Rubber Allergy Rash Verified 06/27/23 12:06 ondansetron [From Zofran] AdvReac Severe Constipatio Verified 06/27/23 12:06 n metformin AdvReac Vomiting Verified 06/27/23 12:06 neomycin AdvReac HIVES, Verified 06/27/23 12:06 [From Neosporin REDNESS ([id number])] polymyxin B AdvReac HIVES, Verified 06/27/23 12:06 [From Neosporin REDNESS ([id number])] Family History Other Arthritis Asthma CVA (cerebral vascular accident) Diabetes Heart disease High cholesterol Hypertension Kidney disease Osteoporosis Seizures Surgical History H/O left knee surgery H/O right knee surgery History of arteriovenostomy for renal dialysis History of bladder surgery History of History of cholecystectomy History of foot surgery History of infusaport central venous catheter removal History of liver biopsy History of lumpectomy of right breast History of shoulder surgery History of thoracentesis Hx of tonsillectomy Social History household members: family housing: house Smoking Status: Former smoker alcohol intake: never ROS <LOUISE Fields - Last Filed: 06/27/23 15:15> ROS ED ROS Narrative Constitutional: Negative for fever, chills, weight loss, weakness Eyes: Negative for vision loss, vision change, double vision ENT: Negative for any sore throat, ear pain, congestion Cardiovascular: Positive for any chest pain, tightness, palpitations Respiratory: Negative for any cough, sputum production, hemoptysis, dyspnea, dyspnea on exertion, orthopnea Gastrointestinal: Negative for any abdominal pain, diarrhea, constipation, blood in stool, blood in vomit. Positive for nausea and vomiting : Negative for any urinary frequency, dysuria, retention, blood in urine Muscle skeletal: Negative for any muscle joint pain, stiffness, myalgias, arthralgias, neck pain, back pain Neurological: Negative for any headache, syncope, numbness or tingling, dizziness Skin: Negative for any rashes, lumps, itching, abrasions, lacerations Psychiatric: Negative for any depression, anxiety, stress, suicidal ideation, homicidal ideation Hematologic: Negative for any easy bruising, excessive bruising, easy bleeding Allergies: Negative for any eczema, hives, rash EXAM <LOUISE Fields - Last Filed: 06/27/23 15:15> Physical Exam Narrative Exam Narrative: Vital signs reviewed. Patient is no obvious distress. Patient's vital signs are stable. HEET: Head normocephalic atraumatic, TMs clear bilaterally. Posterior pharynx is clear, moist mucous membranes. Nares clear bilaterally. Neck: Supple with no lymphadenopathy or tenderness. No signs of meningismus, negative jolt sign. Cardiac: Regular rate and rhythm no murmurs gallops or rubs, equal peripheral pulses bilaterally. Respiratory: Lungs clear to auscultation bilaterally. No chest tenderness. Abdomen: Soft, nontender, nondistended. No abdominal bruit or pulsatile masses. No hepatosplenomegaly Extremities: No peripheral edema, no signs of gross trauma or deformity. Active full range of motion of all extremities. Patient has a hemodialysis port to the left arm, positive bruit, thrill. Neuro: Cranial nerves II through XII intact, no focal neurological deficits. Skin: Clean dry and intact with no rash, purpura, petechiae, vesicles or pustules. Patient has generalized pale color Backs/flank: No CVA tenderness, no midline spinal tenderness, no deformity. Psych: Normal mood and affect. No SI, HI or acute psychosis. Const Vital Signs: 06/27/23 12:07 06/27/23 12:11 06/27/23 12:39 Temperature 96.7 F L Temperature Source Temporal Pulse Rate 76 77 Respiratory Rate 12 Respiratory Pattern Normal Blood Pressure 177/70 H 197/89 H Blood Pressure Mean 105 Pulse Ox 100 Oxygen Delivery Method Room Air 06/27/23 12:49 06/27/23 13:43 06/27/23 14:26 Temperature Temperature Source Pulse Rate 77 68 70 Respiratory Rate 12 18 Respiratory Pattern Blood Pressure 201/85 H 185/79 H 153/82 H Blood Pressure Mean 114 105 Pulse Ox 96 98 Oxygen Delivery Method Room Air Room Air Positive obese Nutritional Appearance: obese <Dr. Marj Cardona, DO - Last Filed: 06/27/23 17:20> Physical Exam Const Vital Signs: 06/27/23 12:07 06/27/23 12:11 06/27/23 12:39 Temperature 96.7 F L Temperature Source Temporal Pulse Rate 76 77 Respiratory Rate 12 Respiratory Pattern Normal Blood Pressure 177/70 H 197/89 H Blood Pressure Mean 105 Pulse Ox 100 Oxygen Delivery Method Room Air 06/27/23 12:49 06/27/23 13:43 06/27/23 14:26 Temperature Temperature Source Pulse Rate 77 68 70 Respiratory Rate 12 18 Respiratory Pattern Blood Pressure 201/85 H 185/79 H 153/82 H Blood Pressure Mean 114 105 Pulse Ox 96 98 Oxygen Delivery Method Room Air Room Air [facility] <Lobito MatthewsLOUISE bowers - Last Filed: 06/27/23 15:15> [facility] Lab Data Labs: Laboratory Results - last 24 hr 06/27/23 06/27/23 12:25 14:40 WBC 7.5 RBC 3.35 L Hgb 10.1 L Hct 31.6 L MCV 94.3 MCH 30.1 MCHC 32.0 RDW Std Deviation 46.7 H RDW Coeff of Juan 13.9 Plt Count TNP MPV 10.5 Immature Gran % (Auto) 0.400 Neut % (Auto) 59.3 Lymph % (Auto) 31.2 [place] % (Auto) 4.9 Eos % (Auto) 3.3 Baso % (Auto) 0.9 Absolute Neuts (auto) 4.4 Absolute Lymphs (auto) 2.34 Nucleated RBC % 0 Platelet Estimate ADEQUATE Sodium 142 Potassium 3.8 Chloride 104 Carbon Dioxide 29.0 Anion Gap 9 BUN 21 H Creatinine 4.44 H Estim Creat Clear Calc 15.23 Est GFR (MDRD) Af Amer 14 L Est GFR (MDRD) Non-Af 11 L BUN/Creatinine Ratio 4.7 L Glucose 151 H Calcium 9.5 Troponin I High Sens 24 21 Radiography Diagnostic Testing: Clinical Impression(s) from Imaging Studies Chest X-Ray 06/27/23 12:32 IMPRESSION: No radiographic evidence of acute cardiopulmonary disease. Electronically Signed: Trevor Botello MD at 12:56 EDT , EKG Normal sinus rhythm: Attestation: I personally reviewed and interpreted this EKG as follows: Comments: Normal sinus rhythm, rate of 77 bpm, AR interval 154 ms, QRS duration 86 ms, no acute ST elevation, no acute infarct noted. Treatment and Re-Evaluation :: Patient appears to be in no obvious respiratory distress, vital signs are stable. Patient presents to the emergency department for nausea vomiting as well as mid chest pain that radiates to her neck. Patient took a Phenergan and states to no longer having nausea. Patient states that her pain in her mid chest is about an 8. She describes it as sharp and stabbing as well as crushing. Patient be given aspirin, she will be given nitro to see if this does help her pain. Her blood pressure is elevated 177/70. EKG showed normal sinus rhythm no acute abnormality. Patient chest x-ray showed no acute process. No evidence of pneumonia or pleural effusion. Patient's laboratory values show a normal CBC, patient's chemistries show a creatinine of 4.44, this is baseline for the patient, she is on hemodialysis last dialysis was Wednesday. Patient initial troponin was 20 4 repeat was 21 and did decrease. Patient had no relief with nitro, she was given morphine, Zofran. This did help her pain, however she was still tearful, crying. She was stating that she was scared. Patient also has a lot of anxiety. Patient was then given 0.5 mg of Ativan. On reassessment, the patient was sleeping, I woke the patient up, she states she still has slight discomfort however he does feel much better. At this time, I do believe patient stable for discharge. She will follow-up outpatient. Patient is stable for discharge. <Dr. Marj Cardona, DO - Last Filed: 06/27/23 17:20> [facility] Lab Data Labs: Laboratory Results - last 24 hr 06/27/23 06/27/23 12:25 14:40 WBC 7.5 RBC 3.35 L Hgb 10.1 L Hct 31.6 L MCV 94.3 MCH 30.1 MCHC 32.0 RDW Std Deviation 46.7 H RDW Coeff of Juan 13.9 Plt Count TNP MPV 10.5 Immature Gran % (Auto) 0.400 Neut % (Auto) 59.3 Lymph % (Auto) 31.2 [place] % (Auto) 4.9 Eos % (Auto) 3.3 Baso % (Auto) 0.9 Absolute Neuts (auto) 4.4 Absolute Lymphs (auto) 2.34 Nucleated RBC % 0 Platelet Estimate ADEQUATE Sodium 142 Potassium 3.8 Chloride 104 Carbon Dioxide 29.0 Anion Gap 9 BUN 21 H Creatinine 4.44 H Estim Creat Clear Calc 15.23 Est GFR (MDRD) Af Amer 14 L Est GFR (MDRD) Non-Af 11 L BUN/Creatinine Ratio 4.7 L Glucose 151 H Calcium 9.5 Troponin I High Sens 24 21 Radiography Diagnostic Testing: Clinical Impression(s) from Imaging Studies Chest X-Ray 06/27/23 12:32 IMPRESSION: No radiographic evidence of acute cardiopulmonary disease. Electronically Signed: Trevor Botello MD at 12:56 EDT , Treatment and Re-Evaluation :: Patient appears to be in no obvious respiratory distress, vital signs are stable. Patient presents to the emergency department for nausea vomiting as well as mid chest pain that radiates to her neck. Patient took a Phenergan and states to no longer having nausea. Patient states that her pain in her mid chest is about an 8. She describes it as sharp and stabbing as well as crushing. Patient be given aspirin, she will be given nitro to see if this does help her pain. Her blood pressure is elevated 177/70. EKG showed normal sinus rhythm no acute abnormality. Patient chest x-ray showed no acute process. No evidence of pneumonia or pleural effusion. Patient's laboratory values show a normal CBC, patient's chemistries show a creatinine of 4.44, this is baseline for the patient, she is on hemodialysis last dialysis was Wednesday. Patient initial troponin was 20 4 repeat was 21 and did decrease. Patient had no relief with nitro, she was given morphine, Zofran. This did help her pain, however she was still tearful, crying. She was stating that she was scared. Patient also has a lot of anxiety. Patient was then given 0.5 mg of Ativan. On reassessment, the patient was sleeping, I woke the patient up, she states she still has slight discomfort however he does feel much better. At this time, I do believe patient stable for discharge. She will follow-up outpatient. Patient is stable for discharge. I have personally performed a face to face assessment of the patient and have reviewed the JORDI Note. I performed a substantive portion of the visit including all aspects of the following. My stover findings include: History is patient is a 48-year-old female with complex medical history including end-stage renal disease on hemodialysis, anemia of chronic disease and hypertension presenting with chest pain rating up to her neck. Patient is also very anxious and tearful upon arrival. She denies any ripping or tearing pain. She has no improvement of pain with nitroglycerin or aspirin or morphine. She is given a dose of Ativan as she still quite tearful and when asked why she is crying she states she is just scared. She is now resting comfortably and is feeling much better. Chest pain has improved with Ativan. She has stable delta high-sensitivity troponin and no acute ischemic EKG changes. She has not missed any hemodialysis and has no significant electrolyte abnormalities associated with end-stage renal disease. Her anemia is at her baseline. At this time I do not suspect an acute cardiac event and think she is stable for outpatient follow-up. Two-view chest x-ray reviewed by myself as well as radiology does not show any acute process. Clinically this does not sound like an acute aortic dissection. Will follow-up outpatient with her PCP. Given return precautions. Patient verbalized agreement understanding with this plan. Other additions or changes: [None] Discharge Plan Triage Chief Complaint: Chest Pain ED Midlevel Provider: Lobito Carreno ED Provider: Marj Cardona Dx/Rx/DC Orders Clinical Impression: History of hemodialysis, Anxiety, Chest pain Instructions: ED Chest Pain, Noncardiac, ED Chest Pain, Uncertain Cause Prescriptions: No Action aspirin 81 mg tablet,delayed release (DR/EC) 81 mg PO DAILY cetirizine 10 mg tablet 10 mg PO DAILY dicyclomine 10 mg capsule 10 mg PO BID pantoprazole 40 mg tablet,delayed release (DR/EC) 40 mg PO DAILY lamotrigine 50 mg tablet,disintegrating 50 mg PO DAILY bumetanide 1 mg tablet 1 mg PO DAILY losartan 50 mg tablet 75 mg PO DAILY tamsulosin 0.4 mg capsule 0.4 mg PO QHS sucralfate 100 mg/mL suspension 2 ml PO TID (DME) pen needle, diabetic [BD Ultra-Fine Laura Pen Needle] 32 gauge x 5/32 needle See Rx Instructions .ROUTE .MEDSUPPLY Qty: 400 3RF Rx Instructions: 4 times daily insulin aspart U-100 [Novolog FlexPen U-100 Insulin] 100 unit/mL (3 mL) insulin pen 6 - 10 unit subcut TID Qty: 15 6RF sennosides-docusate sodium [Senexon-S] 8.6-50 mg tablet 2 tab PO DAILY Patient Comments: TAKE 1-2 TABLETS BY MOUTH DAILY TO PREVENT CONSTIPATION promethazine 25 mg tablet 25 mg PO Q6H PRN (Reason: NAUSEA/VOMITING) atorvastatin 40 mg Tablet 40 mg PO QHS Qty: 30 1RF albuterol sulfate 2.5 mg /3 mL (0.083 %) Solution For Nebulization 2.5 mg INHALATION Q4H PRN (Reason: SOB) albuterol 90 mcg/actuation Aerosol 90 mcg INHALATION PRN PRN (Reason: SOB) B-complex with vitamin C Tablet 1 tab PO DAILY Velphoro 500 mg Tablet,Chewable 500 mg PO TID acetaminophen 500 mg Tablet 1,000 mg PO Q8 Qty: 0 0RF cyclobenzaprine 10 mg Tablet 10 mg PO TID PRN PRN (Reason: Breakthrough Pain (>4/10)) 7 Days Qty: 21 0RF gabapentin 100 mg capsule 300 mg PO QHS Qty: 21 0RF hydrocodone-acetaminophen 7.5-325 mg tablet 1 tab PO Q6H PRN (Reason: pain) 3 Days Qty: 12 0RF cephalexin 500 mg capsule 500 mg PO TID Qty: 21 0RF clindamycin HCl 300 mg capsule 300 mg PO 4X/DAY 10 Days Qty: 40 0RF fluconazole [Diflucan] 150 mg tablet 150 mg PO DAILY Qty: 2 0RF Rx Instructions: 1 pill by mouth at start of antibiotics and 1 pill by mouth once antibiotics are completed hydrocodone-acetaminophen 7.5-325 mg tablet 1 tab PO Q6H PRN (Reason: pain) 3 Days Qty: 12 0RF (DME) FreeStyle Gissell 2 Sensor Kit See Rx Instructions .Route Qty: 6 1RF Rx Instructions: 1 sensor q 14 days Levemir FlexTouch U100 Insulin 100 unit/mL (3 mL) insulin pen 26 unit subcut QHS Qty: 30 0RF Primary Care Provider: Maddy Anaya Referrals: Maddy Anaya MD [Primary Care Provider] - Activity Restrictions/Additional Instructions: Please follow-up outpatient, you had a negative chest pain work-up today Disposition Disposition: Home, Self Care Discharge Date/Time: 06/27/23 15:44
[2023-06-27 12:32] LABS: Absolute Lymphocyte Count 2.34 X10^3/uL (0.83-4.51); Absolute Neutrophil Count 4.4 X10^3/uL (2.0-7.7); Basophil# 0.07 X10^3/uL; Basophil% 0.9 % (0-1); Eosinophil# 0.25 X10^3/uL; Eosinophils% 3.3 % (0-5); Hematocrit 31.6 % (37-47); Hemoglobin 10.1 g/dL (12.0-15.0); Lymphocyte # 2.34 X10^3/ul (0.83-4.51); Lymphocyte % 31.2 % (19-41); Mean Corpuscular Hgb 30.1 pg (27.0-32.0); Mean Corpuscular Volume 94.3 fL (81-99); Mean Platelet Vol. 10.5 fl (6.2-12.0); Monocyte# 0.37 X10^3/uL; Monocyte% 4.9 % (0-10); NRBC Flagged by Analyzer 0 % (0-5); Neutrophil # 4.44 X10^3/uL (2.7-7.7); Neutrophil % 59.3 % (47-70); POSITIVE COUNT YES; RBC Distribution Width CV 13.9 % (11.6-14.6); RBC Distribution Width SD 46.7 fl (35.1-43.9); Red Blood Count 3.35 M/mm3 (4.2-5.4); White Blood Count 7.5 K/mm3 (4.4-11.0)
--- NOTE | 2023-06-27 12:32 | RAD_ITS ---
INDICATION: chest pain EXAMINATION/TECHNIQUE: X-RAY - XR Chest 1 View COMPARISON: Prior study dated: 04/06/2023. FINDINGS: LINES/DEVICES: None. LUNGS: No consolidation, edema or effusion. No pneumothorax. MEDIASTINUM AND CARDIOVASCULAR STRUCTURES: Cardiac silhouette not enlarged. Central airways and mediastinal contour are unremarkable. BONES AND SOFT TISSUES: Unremarkable. RAD/Chest 1 View (Portable) IMPRESSION: No radiographic evidence of acute cardiopulmonary disease. Electronically Signed: Trevor Botello MD at 12:56 EDT ,
[2023-06-27 12:39] VITALS: BP 197/89; PULSE 77
[2023-06-27] MEDS: Aspirin 81 MG TAB.CHEW 324 MG PO (12:39)
[2023-06-27] MEDS: Nitroglycerin SL (ED/IMG/CATH) 0.4 MG TABLET SL ×2 (12:39→12:49)
[2023-06-27 12:44] LABS: Anion Gap 9 (5-15); BUN 21 mg/dL (7-18); BUN/Creat Ratio 4.7 RATIO (10-20); Calcium,Total 9.5 mg/dL (8.5-10.1); Chloride 104 mmol/L (98-107); Creatinine, Serum 4.44 mg/dL (0.55-1.02); EST Glomerular Filtration Rate 11 mL/min (>60); Est Glom Filt Rate - Afr Amer 14 mL/min (>60); Estimated Creatinine Clearance 15.23 ml/min; Glucose 151 mg/dL (74-106); Potassium 3.8 mmol/L (3.5-5.1); Sodium Level 142 mmol/L (136-145); Troponin-I HS (w/2H Reflex) 24 pg/mL (3.0-54.0)
[2023-06-27 12:49] VITALS: BP 201/85; PULSE 77
[2023-06-27 12:51] LABS: Differential Indicated SCAN CRITERIA MET; Platelet Estimate ADEQUATE (ADEQ)
[2023-06-27] MEDS: Metoclopramide 10 MG/2 ML Vial 5 MG IV (13:15)
[2023-06-27] MEDS: Morphine 4 MG/ML Syringe IV (13:16)
[2023-06-27 13:43] VITALS: BP 185/79; PULSE 68; RESP 12; O2SAT 96
[2023-06-27] MEDS: LORazepam 2 MG/ML Syringe 0.5 MG IV (13:47)
[2023-06-27 14:26] VITALS: BP 153/82; PULSE 70; RESP 18; O2SAT 98
[2023-06-27 14:27] LABS: Reflex Troponin-HS? (from REC) Y
--- NOTE | 2023-06-27 15:00 | ED.RN ---
pulse ox to 80s when sleeping - awakened and 98%
[2023-06-27 15:05] LABS: Troponin-I HS 21 pg/mL (3.0-54.0)
--- NOTE | 2023-06-27 15:43 | ED.RN ---
called daughter for ride home
== END 2023-06-27 15:44 | disposition home or self-care (01) ==
PROVIDERS: Nurse Practitioner; Emergency Provider Emergency Medicine; PCP Family Medicine; Visit Provider Emergency Medicine
DX: R07.9 Chest pain, unspecified (principal); I13.2 Hypertensive heart and chronic kidney disease with heart failure and with stage 5 chronic kidney disease, or end stage renal disease; Z99.2 Dependence on renal dialysis; I50.9 Heart failure, unspecified; E11.22 Type 2 diabetes mellitus with diabetic chronic kidney disease; N18.6 End stage renal disease; Z79.4 Long term (current) use of insulin; R11.2 Nausea with vomiting, unspecified; F41.9 Anxiety disorder, unspecified; Z87.891 Personal history of nicotine dependence; Z99.81 Dependence on supplemental oxygen; Z86.73 Personal history of transient ischemic attack (TIA), and cerebral infarction without residual deficits; Z79.899 Other long term (current) drug therapy; Z79.82 Long term (current) use of aspirin; R60.9 Edema, unspecified; J30.2 Other seasonal allergic rhinitis; K21.9 Gastro-esophageal reflux disease without esophagitis; Z90.49 Acquired absence of other specified parts of digestive tract
CPT/HCPCS: 71045; 80048; 84484; 85025; 93005; 96374; 96375; 99283; A4216

== ENCOUNTER 2023-07-05 16:43 | Emergency (ER) | payer MEDICARE, MEDICAID, SELFPAY ==
[2023-07-05] VITALS (9 sets, daily range): BP systolic 124–222; BP diastolic 90–107; PULSE 67–79; RESP 12–18; TEMP 36.1; O2SAT 93–99
--- NOTE | 2023-07-05 17:36 | EKG12_ITS ---
Test Reason : Blood Pressure : / mmHG Vent. Rate : 075 BPM Atrial Rate : 075 BPM P-R Int : 154 ms QRS Dur : 086 ms QT Int : 414 ms P-R-T Axes : 056 081 051 degrees QTc Int : 462 ms Normal sinus rhythm Normal ECG Confirmed by FLORA BHATT, YENY ([id number]), editor news TIM DUKE [id number]) on 07/09/2023 2:27:05 PM Referred By: Confirmed By:YENY HINES MD
--- NOTE | 2023-07-05 17:37 | ED.VIS.CHEST ---
HPI History of Present Illness Chief Complaint: Chest Pain Informant: patient Onset/Context/Timing Onset: Yesterday Activity at onset: sudden Timing: Waxes and wanes Quality: Positive for Sharp Location: Left Chest Worsened By: Nothing Relieved By: Nothing Associated Symptoms: Positive for Nausea, Vomiting, Diaphoresis, Dyspnea, Lightheadedness and Palpitations; Negative for Cough, Fever or Acid Reflux Narrative Narrative: Patient presents with chest pain that began yesterday. Patient states that it has been waxing and waning since last night. Patient states it began rather suddenly. Patient describes her pain as sharp. Patient states pain is over the left side of her chest. Patient states nothing makes it better nothing makes it worse. Patient states she also had an episode of hypoglycemia recently. Patient admits to some nausea and vomiting with throat pain. Patient admits to some diaphoresis and shortness of breath. Patient also admits to some palpitations and lightheadedness. Patient denies any fevers or chills. Patient denies any cough. CVD Risk Factors: Positive for Diabetes and Family History 1' </=55; Negative for Hypertension, Hypercholesterolemia or Smoking PE Risk Factors: Negative for Recent Travel/Surgery, Recent Immobilization, Prior DVT or PE, Cancer or OCP + Smoking + >/=35 PFSH PFSH Medical History Anxiety Arthritis Asthma Fleming esophagus Blackout Bruising delivery delivered Chronic kidney disease Depression Dietary restriction Difficulty swallowing Disc disorder Easy bruising ESRD needing dialysis FH: cholecystectomy Former smoker Gastric reflux High cholesterol History of CHF (congestive heart failure) History of Clostridium difficile infection History of echocardiogram History of edema History of stress test History of ulceration Hypertension Hypertension Injury of head and neck Insulin dependent diabetes mellitus Left foot amputee (~2019) Left hand pain Loss of hearing Low iron Migraine headache On home oxygen therapy Seasonal allergies Shortness of breath on exertion Stroke (~2021) Syncope Thyroid disease Transitioned from acute care to home health care Uses wheelchair Vision impairment Walker as ambulation aid Wears glasses Home Medications aspirin 81 mg tablet,delayed release 81 mg PO DAILY HEART HEALTH 06/23/22 [History Last Taken 01/19/23] bumetanide 1 mg tablet 1 mg PO DAILY FLUID 06/23/22 [History Last Taken 01/19/23] cetirizine 10 mg tablet 10 mg PO DAILY ALLERGIES 06/23/22 [History Last Taken 01/19/23] dicyclomine 10 mg capsule 10 mg PO BID STOMACH 06/23/22 [History Last Taken 01/19/23] lamotrigine 50 mg disintegrating tablet 50 mg PO DAILY MOOD 06/23/22 [History Last Taken 01/20/23] losartan 50 mg tablet 75 mg PO DAILY BLOOD PRESSURE 06/23/22 [History Last Taken 01/20/23] pantoprazole 40 mg tablet,delayed release 40 mg PO DAILY ACID REFLUX 06/23/22 [History Last Taken 01/20/23] tamsulosin 0.4 mg capsule 0.4 mg PO QHS BLADDER 06/23/22 [History Last Taken 01/19/23] promethazine 25 mg tablet 25 mg PO Q6H PRN NAUSEA/VOMITING 09/01/22 [History Last Taken Unknown] sennosides 8.6 mg-docusate sodium 50 mg tablet (Senexon-S) 2 tab PO DAILY CONSTIPATION 09/01/22 [History Last Taken 01/17/23] atorvastatin 40 mg tablet 40 mg PO QHS #30 tabs 09/04/22 [Rx Last Taken 01/19/23] sucralfate 100 mg/mL oral suspension 2 ml PO TID 11/12/22 [History Last Taken 01/19/23] B-complex with vitamin C 1 tab PO DAILY 01/07/23 [History Last Taken 01/19/23] albuterol 90 mcg/actuation aerosol inhaler 90 mcg inhalation PRN PRN SOB 01/07/23 [History Last Taken 01/19/23] albuterol sulfate 2.5 mg/3 mL (0.083 %) solution for nebulization 2.5 mg inhalation Q4H PRN SOB 01/07/23 [History Last Taken 01/19/23] sucroferric oxyhydroxide 500 mg chewable tablet (Velphoro) 500 mg PO TID 01/07/23 [History Last Taken 01/19/23] acetaminophen 500 mg tablet 1,000 mg (2 x 500 mg) PO Q8 #0 tabs 01/22/23 [Rx Last Taken Unknown] cyclobenzaprine 10 mg tablet 10 mg PO TID PRN PRN Breakthrough Pain (>4/10) 7 days #21 tabs 01/22/23 [Rx Last Taken Unknown] gabapentin 100 mg capsule 300 mg (3 x 100 mg) PO QHS NERVE PAIN #21 caps 01/22/23 [Rx Last Taken Unknown] flash glucose sensor (FreeStyle Gissell 2 Sensor kit) #6 ea 03/16/23 [Rx Last Taken Unknown] hydrocodone 7.5 mg-acetaminophen 325 mg tablet 1 tab PO Q6H PRN pain 3 days #12 tabs 04/06/23 [Rx Last Taken Unknown] clindamycin HCl 300 mg capsule 300 mg PO 4X/DAY 10 days #40 caps 04/12/23 [Rx Last Taken Unknown] fluconazole 150 mg tablet (Diflucan) 150 mg PO DAILY #2 tabs 04/12/23 [Rx Last Taken Unknown] hydrocodone 7.5 mg-acetaminophen 325 mg tablet 1 tab PO Q6H PRN pain 3 days #12 tabs 04/12/23 [Rx Last Taken Unknown] cephalexin 500 mg capsule 500 mg PO TID #21 caps 04/28/23 [Rx Last Taken Unknown] insulin detemir U-100 100 unit/mL (3 mL) subcutaneous pen 26 unit (0.26 mL) subcut QHS DIABETES #30 mL 05/21/23 [Rx Last Taken Unknown] Novolog FlexPen U-100 Insulin 100 unit/mL (3 mL) subcutaneous (insulin aspart U-100) 6 - 10 unit (0.06 - 0.1 mL) subcut TID DIABETES #15 mL 05/27/23 [Rx Last Taken Unknown] pen needle, diabetic 32 gauge x 5/32 (BD Ultra-Fine Laura Pen Needle) #400 ea 05/27/23 [Rx Last Taken Unknown] Allergy/AdvReac Type Severity Reaction Status Date / Time lidocaine Allergy Severe Rash Verified 07/05/23 16:43 bacitracin Allergy Intermediate blisters Verified 07/05/23 16:43 hydrogen peroxide Allergy Intermediate blisters Verified 07/05/23 16:43 isopropyl alcohol Allergy Intermediate blisters Verified 07/05/23 16:43 Sulfa (Sulfonamide Allergy Intermediate Rash Verified 07/05/23 16:43 Antibiotics) Bleach (Sodium Hypochlorite) Allergy Hives Verified 07/05/23 16:43 insulin lispro Allergy HIVES, Verified 07/05/23 16:43 [From Humalog U-100 Insulin] REDNESS Latex, Natural Rubber Allergy Rash Verified 07/05/23 16:43 ondansetron [From Zofran] AdvReac Severe Constipatio Verified 07/05/23 16:43 n metformin AdvReac Vomiting Verified 07/05/23 16:43 neomycin AdvReac HIVES, Verified 07/05/23 16:43 [From Neosporin REDNESS ([id number])] polymyxin B AdvReac HIVES, Verified 07/05/23 16:43 [From Neosporin REDNESS ([id number])] Family History Other Arthritis Asthma CVA (cerebral vascular accident) Diabetes Heart disease High cholesterol Hypertension Kidney disease Osteoporosis Seizures Surgical History H/O left knee surgery H/O right knee surgery History of arteriovenostomy for renal dialysis History of bladder surgery History of History of cholecystectomy History of foot surgery History of infusaport central venous catheter removal History of liver biopsy History of lumpectomy of right breast History of shoulder surgery History of thoracentesis Hx of tonsillectomy Social History household members: family housing: house Smoking Status: Former smoker alcohol intake: never ROS ROS ED Constitutional Constitutional ED: Denies chills or fever(s) Eyes Eyes: Denies blurry vision or change in vision ENT ENT ED: Reports rhinorrhea; Denies sore throat Cardiovascular Cardiovascular: Reports chest pain and palpitations Respiratory/Chest Respiratory/Chest: Reports dyspnea; Denies cough Gastrointestinal Gastrointestinal: Reports nausea and vomiting; Denies abdominal pain Genitourinary Genitourinary ED: Denies dysuria or hematuria Musculoskeletal Musculoskeletal: Reports neck pain; Denies back pain Integumentary Denies abscess or rash Neurologic Neurologic: Denies headache(s) or weakness Allergic/Immunologic Allergic/Immunologic ED: Denies mouth swelling or urticaria EXAM Physical Exam Const Vital Signs: 07/05/23 16:44 07/05/23 20:59 07/05/23 18:00 Temperature 96.9 F L Temperature Source Temporal Pulse Rate 77 73 Respiratory Rate 18 13 Blood Pressure 190/90 H 222/105 H Blood Pressure Mean 123 139 Pulse Ox 97 97 Oxygen Delivery Method Room Air Room Air 07/05/23 19:00 07/05/23 20:00 07/05/23 20:30 Temperature Temperature Source Pulse Rate 67 68 74 Respiratory Rate 15 12 16 Blood Pressure 194/99 H 205/102 H 124/104 H Blood Pressure Mean 123 132 113 Pulse Ox 94 97 99 Oxygen Delivery Method 07/05/23 21:36 Temperature Temperature Source Pulse Rate 67 Respiratory Rate 12 Blood Pressure Blood Pressure Mean Pulse Ox Oxygen Delivery Method Positive well nourished, well developed and obese General Appearance ED: well developed and NAD Nutritional Appearance: obese HEENT Reports moist mucous membranes normocephalic and atraumatic Eyes PERRL and EOMs intact bilaterally Neck supple and no JVD Chest Wall palpation of chest normal Resp normal respiratory effort and clear to auscultation bilaterally Effort and Inspection: Negative for respiratory distress Cardio regular rate and regular rhythm GI soft to palpation, non-tender and non-distended Extremity normal to inspection General Extremety ED: Negative for edema or tenderness General Extremity: Negative for edema Neuro oriented x3, CN's II-XII intact bilaterally and no sensory deficits noted Sensorium / Orientation: awake and alert Motor Exam: strength 5/5 throughout Psych mental status grossly normal Heart Score History: Slightly/Non-Suspicious ECG: Normal Age: >45 - <65 years Risk Factors: 1 or 2 Risk Factors Score: 2 MDM MDM MDM Narrative Medical decision making narrative: Differential diagnosis includes cardiac dysrhythmia, cardiac ischemia, electrolyte abnormality, pneumonia, anxiety, and musculoskeletal pain. Patient states she has a history of elevated D-dimers but has had multiple ultrasounds and CT scans which have not shown any evidence of DVT or PE. EKG will be obtained to assess for cardiac dysrhythmia and cardiac ischemia. Chest x-ray will be obtained to assess for pneumonia and pneumothorax. CBC will be obtained to assess for leukocytosis and anemia. Basic metabolic profile will be obtained to assess for renal function and electrolyte abnormality. High-sensitivity troponin will be obtained to assess for cardiac ischemia. Lab Data Attestation: I reviewed the patient's lab results. Lab results narrative: CBC was reviewed. There is a mild anemia with a hemoglobin of 10.1 and hematocrit 31.4. Platelets were normal. Basic metabolic profile was reviewed. BUN was 37 and creatinine was 5.24. These were consistent with prior results. Potassium was slightly elevated at 5.3. Chloride was 109. The remainder was essentially within normal limits. High-sensitivity troponin was reviewed and was normal at 22. 2-hour repeat high-sensitivity troponin was reviewed and was normal at 23. Labs: Laboratory Results - last 24 hr 07/05/23 07/05/23 17:20 20:00 WBC 5.6 RBC 3.21 L Hgb 10.1 L Hct 31.4 L MCV 97.8 MCH 31.5 MCHC 32.2 RDW Std Deviation 53.0 H RDW Coeff of Juan 14.8 H Plt Count 218 MPV 9.2 Immature Gran % (Auto) 0.200 Neut % (Auto) 62.1 Lymph % (Auto) 28.0 Evangeline % (Auto) 5.6 Eos % (Auto) 3.2 Baso % (Auto) 0.9 Absolute Neuts (auto) 3.5 Absolute Lymphs (auto) 1.56 Nucleated RBC % 0 Sodium 139 Potassium 5.3 H Chloride 109 H Carbon Dioxide 25.0 Anion Gap 5 BUN 37 H Creatinine 5.24 H Est GFR (MDRD) Af Amer 11 L Est GFR (MDRD) Non-Af 9 L BUN/Creatinine Ratio 7.1 L Glucose 176 H Calcium 8.7 Troponin I High Sens 22 23 Radiography Chest X-Ray - ED: 1 View, Read by ED Physician, Read by Radiologist and No Acute Disease Diagnostic Testing: Clinical Impression(s) from Imaging Studies Chest X-Ray 07/05/23 17:52 IMPRESSION: Prominent central vascularity. No focal infiltrate. Electronically Signed: Param Rollins MD at 18:15 EDT , Portable 1 view chest x-ray was obtained. On my independent interpretation, lung tapia are clear. There is normal cardiac silhouette. Bony thorax is normal. There is no acute process noted. Radiologist also interpreted the x-ray and agrees. EKG Initial EKG: Attestation: I personally reviewed and interpreted this EKG as follows: Interpretation: Sinus Rhythm (75) and No Acute Injury Pattern Comments: EKG was obtained. On my independent interpretation, it showed a normal sinus rhythm with a rate of 75. ND interval, QRS interval, and QTc intervals were all normal. [place] was normal. There are no acute ST or T wave changes. Prior EKG tracings: available for review Prior: Unchanged (06/27/2023) Treatment and Re-Evaluation :: Patient was given aspirin and morphine here. Patient was advised of her findings. Patient was given albuterol aerosol because of the hyperkalemia. Patient was given calcium gluconate as well. Patient has an allergy to insulin lispro. There is no other alternative to be given. Therefore, this was held along with the glucose. Patient was given a dose of hydralazine for her blood pressure. Patient's blood pressure started to improve. Patient was given a dose of clonidine. Patient is feeling better after this. Patient blood pressure is improving. I feel the patient is able to be discharged home. Patient was instructed to follow-up with her dialysis in 2 days as scheduled. Patient was instructed to return if worse in any way. Patient understood and was agreeable with the plan. All questions were answered. Discharge Plan Triage Chief Complaint: Chest Pain ED Provider: Gregory Kelly Dx/Rx/DC Orders Clinical Impression: ESRD needing dialysis, Chest pain, Hypertension Instructions: ED Chest Pain, Uncertain Cause, ED Hypertension, Established Prescriptions: No Action aspirin 81 mg tablet,delayed release (DR/EC) 81 mg PO DAILY cetirizine 10 mg tablet 10 mg PO DAILY dicyclomine 10 mg capsule 10 mg PO BID pantoprazole 40 mg tablet,delayed release (DR/EC) 40 mg PO DAILY lamotrigine 50 mg tablet,disintegrating 50 mg PO DAILY bumetanide 1 mg tablet 1 mg PO DAILY losartan 50 mg tablet 75 mg PO DAILY tamsulosin 0.4 mg capsule 0.4 mg PO QHS sucralfate 100 mg/mL suspension 2 ml PO TID (DME) pen needle, diabetic [BD Ultra-Fine Laura Pen Needle] 32 gauge x 5/32 needle See Rx Instructions .ROUTE .MEDSUPPLY Qty: 400 3RF Rx Instructions: 4 times daily insulin aspart U-100 [Novolog FlexPen U-100 Insulin] 100 unit/mL (3 mL) insulin pen 6 - 10 unit subcut TID Qty: 15 6RF sennosides-docusate sodium [Senexon-S] 8.6-50 mg tablet 2 tab PO DAILY Patient Comments: TAKE 1-2 TABLETS BY MOUTH DAILY TO PREVENT CONSTIPATION promethazine 25 mg tablet 25 mg PO Q6H PRN (Reason: NAUSEA/VOMITING) atorvastatin 40 mg Tablet 40 mg PO QHS Qty: 30 1RF albuterol sulfate 2.5 mg /3 mL (0.083 %) Solution For Nebulization 2.5 mg INHALATION Q4H PRN (Reason: SOB) albuterol 90 mcg/actuation Aerosol 90 mcg INHALATION PRN PRN (Reason: SOB) B-complex with vitamin C Tablet 1 tab PO DAILY Velphoro 500 mg Tablet,Chewable 500 mg PO TID acetaminophen 500 mg Tablet 1,000 mg PO Q8 Qty: 0 0RF cyclobenzaprine 10 mg Tablet 10 mg PO TID PRN PRN (Reason: Breakthrough Pain (>410)) 7 Days Qty: 21 0RF gabapentin 100 mg capsule 300 mg PO QHS Qty: 21 0RF hydrocodone-acetaminophen 7.5-325 mg tablet 1 tab PO Q6H PRN (Reason: pain) 3 Days Qty: 12 0RF cephalexin 500 mg capsule 500 mg PO TID Qty: 21 0RF clindamycin HCl 300 mg capsule 300 mg PO 4X/DAY 10 Days Qty: 40 0RF fluconazole [Diflucan] 150 mg tablet 150 mg PO DAILY Qty: 2 0RF Rx Instructions: 1 pill by mouth at start of antibiotics and 1 pill by mouth once antibiotics are completed hydrocodone-acetaminophen 7.5-325 mg tablet 1 tab PO Q6H PRN (Reason: pain) 3 Days Qty: 12 0RF (DME) FreeStyle Gissell 2 Sensor Kit See Rx Instructions .Route Qty: 6 1RF Rx Instructions: 1 sensor q 14 days Levemir FlexTouch U100 Insulin 100 unit/mL (3 mL) insulin pen 26 unit subcut QHS Qty: 30 0RF Primary Care Provider: Maddy Anaya Referrals: Maddy Anaya MD [Primary Care Provider] - 3-5 Days Disposition Disposition: Home, Self Care
[2023-07-05] MEDS: Aspirin 81 MG TAB.CHEW 324 MG PO (17:48)
[2023-07-05 17:49] LABS: Absolute Lymphocyte Count 1.56 X10^3/uL (0.83-4.51); Absolute Neutrophil Count 3.5 X10^3/uL (2.0-7.7); Basophil# 0.05 X10^3/uL; Basophil% 0.9 % (0-1); Eosinophil# 0.18 X10^3/uL; Eosinophils% 3.2 % (0-5); Hematocrit 31.4 % (37-47); Hemoglobin 10.1 g/dL (12.0-15.0); Lymphocyte # 1.56 X10^3/ul (0.83-4.51); Mean Corp Hgb Conc 32.2 g/dL (32-36); Mean Corpuscular Hgb 31.5 pg (27.0-32.0); Mean Corpuscular Volume 97.8 fL (81-99); Mean Platelet Vol. 9.2 fl (6.2-12.0); Monocyte# 0.31 X10^3/uL; Monocyte% 5.6 % (0-10); NRBC Flagged by Analyzer 0 % (0-5); Neutrophil # 3.47 X10^3/uL (2.7-7.7); Neutrophil % 62.1 % (47-70); Platelet Count 218 K/mm3 (150-450); RBC Distribution Width CV 14.8 % (11.6-14.6); Red Blood Count 3.21 M/mm3 (4.2-5.4); White Blood Count 5.6 K/mm3 (4.4-11.0)
[2023-07-05] MEDS: Morphine 4 MG/ML Syringe IV (17:49)
--- NOTE | 2023-07-05 17:52 | RAD_ITS ---
STUDY: X-RAY CHEST REASON FOR EXAM: Female, 48 years old. Chest pain TECHNIQUE: Single AP portable view of the chest. COMPARISON: June 27, 2023 FINDINGS: The lungs are clear and expanded. There is no demonstrated pleural abnormality. Normal size heart. There is prominent central vascularity in the hilar regions . Normal visualized aortic arch and descending thoracic aorta. Normal visualized thoracic spine. Normal visualized ribs, clavicles, and shoulders. There is no demonstrated abnormality of the visualized soft tissue structures of the upper abdomen. RAD/Chest 1 View (Portable) IMPRESSION: Prominent central vascularity. No focal infiltrate. Electronically Signed: Param Rollins MD at 18:15 EDT ,
[2023-07-05 18:18] LABS: Anion Gap 5 (5-15); BUN 37 mg/dL (7-18); BUN/Creat Ratio 7.1 RATIO (10-20); Calcium,Total 8.7 mg/dL (8.5-10.1); Chloride 109 mmol/L (98-107); Creatinine, Serum 5.24 mg/dL (0.55-1.02); EST Glomerular Filtration Rate 9 mL/min (>60); Est Glom Filt Rate - Afr Amer 11 mL/min (>60); Glucose 176 mg/dL (74-106); Potassium 5.3 mmol/L (3.5-5.1); Sodium Level 139 mmol/L (136-145); Troponin-I HS (w/2H Reflex) 22 pg/mL (3.0-54.0)
[2023-07-05 19:43] LABS: Reflex Troponin-HS? (from REC) Y
[2023-07-05 20:35] LABS: Troponin-I HS 23 pg/mL (3.0-54.0)
[2023-07-05] MEDS: Albuterol 2.5 MG/3 ML VIAL.NEB. INHALATION (21:35)
[2023-07-05] MEDS: hydrALAZINE 20 MG/ML Vial 10 MG IV (22:32)
[2023-07-05] MEDS: Calcium Gluconate IV 3 GM in Syringe 1 EACH IV (22:32)
[2023-07-06] VITALS: BP 188/87; PULSE 79; RESP 12; O2SAT 89
[2023-07-06] MEDS: cloNIDine HCl 0.1 MG Tablet PO (00:21)
== END 2023-07-06 00:43 | disposition home or self-care (01) ==
PROVIDERS: Emergency Provider Emergency Medicine; PCP Family Medicine; Visit Provider Emergency Medicine
DX: R07.9 Chest pain, unspecified (principal); I13.2 Hypertensive heart and chronic kidney disease with heart failure and with stage 5 chronic kidney disease, or end stage renal disease; I50.9 Heart failure, unspecified; E11.22 Type 2 diabetes mellitus with diabetic chronic kidney disease; N18.6 End stage renal disease; Z79.4 Long term (current) use of insulin; E78.00 Pure hypercholesterolemia, unspecified; R11.2 Nausea with vomiting, unspecified; Z87.891 Personal history of nicotine dependence; Z99.81 Dependence on supplemental oxygen; Z86.73 Personal history of transient ischemic attack (TIA), and cerebral infarction without residual deficits
CPT/HCPCS: 71045; 80048; 84484; 85025; 93005; 94640; 96374; 99285; J7040; A4216; J0612

== ENCOUNTER 2023-08-13 09:31 | Observation (INO) | payer MEDICARE, MEDICAID, SELFPAY ==
[2023-08-13] VITALS (18 sets, daily range): BP systolic 147–291; BP diastolic 63–101; PULSE 69–87; RESP 11–19; TEMP 36.1–36.7; O2SAT 91–99; BMI 49.1; BMI 47.9; BMI 48.0; BMI 46.7
--- NOTE | 2023-08-13 09:52 | EKG12_ITS ---
Test Reason : ABD PAIN Blood Pressure : / mmHG Vent. Rate : 075 BPM Atrial Rate : 075 BPM P-R Int : 156 ms QRS Dur : 080 ms QT Int : 410 ms P-R-T Axes : 060 086 068 degrees QTc Int : 457 ms Normal sinus rhythm Normal ECG Confirmed by MARTINE BHATT, MARA ([id number]), scientific publications editor NATALIIA JETT ([id number]) on 08/16/2023 8:25:36 AM Referred By: Confirmed By:FLORENCE FARLEY MD
--- NOTE | 2023-08-13 09:52 | CT_ITS ---
STUDY: CT HEAD STROKE PROTOCOL W/O CONTRAST INJECTION REASON FOR EXAM: Female, 48 years old. Neuro deficit, acute, stroke suspected RADIATION DOSAGE (If Supplied By Facility): CTDIvol = ( 44.99 ) mGy, DLP = ( 835.48 ) mGycm TECHNIQUE: Transaxial CT imaging of the brain was performed without administration of intravenous contrast material. Individualized dose optimization techniques were used for this CT. COMPARISON: No relevant priors. FINDINGS: Normal soft tissue structures. Normal calvarium. Normal size ventricles and extra-axial spaces for the patient''s age. Normal white matter tracts of the cerebral hemispheres. Normal basal ganglia and thalami. Normal brainstem. Normal cerebellum. There is no intracranial hemorrhage. There are no findings of an acute ischemic infarction. Normal visualized paranasal sinuses. ASPECT score: 10 CT/Brain/Head without Contrast IMPRESSION: Normal unenhanced CT scan of the brain. N.B. : The above Results were Read Back by Vaughn Alves MD to Dr Delroy MD, and understanding confirmed on 08/13/2023 10:39:17 (ET). Electronically Signed: Vaughn Alves MD at 10:40 EST ,
--- NOTE | 2023-08-13 09:53 | EX.ED.DYSGE1 ---
HPI History of Present Illness Chief Complaint: Hypertension Informant: patient and EMS Narrative Narrative: Patient was sent to the ER from dialysis today without having a treatment done because her blood pressure was extremely high in the 220s and she was complaining of a headache like the last time I had a stroke. Although the patient realizes this, she admits that she has been having this headache for the last 5 days. Also in that period of time, her left upper extremity which is chronically weak from prior stroke has been weaker and she has been dropping things with her hand which is new for her, and she has numbness in her hand. She states both of her legs have seemed weaker in the last several days, not necessarily asymmetrically. She has a chronic left foot drop from a surgery/trauma not her stroke in the past. She states she is a dialysis patient who always is over her dry weight at dialysis needing fluid taken off, she states typically she is about 7 kg over which she was for her treatment on Wednesday, she usually does Wednesday today being Wednesday, and she missed Wednesday because she went out of town to see her dad in [place], today she states she was 19 kg over but did not receive her treatment. Follows with Dr. Staples nephrology. [facility] Medical History Anxiety Arthritis Asthma Fleming esophagus Blackout Bruising delivery delivered Chronic kidney disease Depression Dietary restriction Difficulty swallowing Disc disorder Easy bruising ESRD needing dialysis FH: cholecystectomy Former smoker Gastric reflux High cholesterol History of CHF (congestive heart failure) History of Clostridium difficile infection History of echocardiogram History of edema History of stress test History of ulceration Hypertension Hypertension Injury of head and neck Insulin dependent diabetes mellitus Left foot amputee (~2019) Left hand pain Loss of hearing Low iron Migraine headache On home oxygen therapy Seasonal allergies Shortness of breath on exertion Stroke (~2021) Syncope Thyroid disease Transitioned from acute care to home health care Uses wheelchair Vision impairment Walker as ambulation aid Wears glasses Home Medications aspirin 81 mg tablet,delayed release 81 mg PO DAILY HEART HEALTH 06/23/22 [History Last Taken 01/19/23] bumetanide 1 mg tablet 1 mg PO DAILY FLUID 06/23/22 [History Last Taken 01/19/23] cetirizine 10 mg tablet 10 mg PO DAILY ALLERGIES 06/23/22 [History Last Taken 01/19/23] dicyclomine 10 mg capsule 10 mg PO BID STOMACH 06/23/22 [History Last Taken 01/19/23] lamotrigine 50 mg disintegrating tablet 50 mg PO DAILY MOOD 06/23/22 [History Last Taken 01/20/23] losartan 50 mg tablet 75 mg PO DAILY BLOOD PRESSURE 06/23/22 [History Last Taken 01/20/23] pantoprazole 40 mg tablet,delayed release 40 mg PO DAILY ACID REFLUX 06/23/22 [History Last Taken 01/20/23] tamsulosin 0.4 mg capsule 0.4 mg PO QHS BLADDER 06/23/22 [History Last Taken 01/19/23] promethazine 25 mg tablet 25 mg PO Q6H PRN NAUSEA/VOMITING 09/01/22 [History Last Taken Unknown] sennosides 8.6 mg-docusate sodium 50 mg tablet (Senexon-S) 2 tab PO DAILY CONSTIPATION 09/01/22 [History Last Taken 01/17/23] atorvastatin 40 mg tablet 40 mg PO QHS #30 tabs 09/04/22 [Rx Last Taken 01/19/23] sucralfate 100 mg/mL oral suspension 2 ml PO TID 11/12/22 [History Last Taken 01/19/23] B-complex with vitamin C 1 tab PO DAILY 01/07/23 [History Last Taken 01/19/23] albuterol 90 mcg/actuation aerosol inhaler 90 mcg inhalation PRN PRN SOB 01/07/23 [History Last Taken 01/19/23] albuterol sulfate 2.5 mg/3 mL (0.083 %) solution for nebulization 2.5 mg inhalation Q4H PRN SOB 01/07/23 [History Last Taken 01/19/23] sucroferric oxyhydroxide 500 mg chewable tablet (Velphoro) 500 mg PO TID 01/07/23 [History Last Taken 01/19/23] acetaminophen 500 mg tablet 1,000 mg (2 x 500 mg) PO Q8 #0 tabs 01/22/23 [Rx Last Taken Unknown] cyclobenzaprine 10 mg tablet 10 mg PO TID PRN PRN Breakthrough Pain (>4/10) 7 days #21 tabs 01/22/23 [Rx Last Taken Unknown] gabapentin 100 mg capsule 300 mg (3 x 100 mg) PO QHS NERVE PAIN #21 caps 01/22/23 [Rx Last Taken Unknown] flash glucose sensor (FreeStyle Gissell 2 Sensor kit) #6 ea 03/16/23 [Rx Last Taken Unknown] hydrocodone 7.5 mg-acetaminophen 325 mg tablet 1 tab PO Q6H PRN pain 3 days #12 tabs 04/06/23 [Rx Last Taken Unknown] clindamycin HCl 300 mg capsule 300 mg PO 4X/DAY 10 days #40 caps 04/12/23 [Rx Last Taken Unknown] fluconazole 150 mg tablet (Diflucan) 150 mg PO DAILY #2 tabs 04/12/23 [Rx Last Taken Unknown] hydrocodone 7.5 mg-acetaminophen 325 mg tablet 1 tab PO Q6H PRN pain 3 days #12 tabs 04/12/23 [Rx Last Taken Unknown] cephalexin 500 mg capsule 500 mg PO TID #21 caps 04/28/23 [Rx Last Taken Unknown] Novolog FlexPen U-100 Insulin 100 unit/mL (3 mL) subcutaneous (insulin aspart U-100) 6 - 10 unit (0.06 - 0.1 mL) subcut TID DIABETES #15 mL 08/04/23 [Rx Last Taken Unknown] insulin detemir U-100 100 unit/mL (3 mL) subcutaneous pen 26 unit (0.26 mL) subcut QHS DIABETES #30 mL 08/04/23 [Rx Last Taken Unknown] pen needle, diabetic 32 gauge x 5/32 (BD Ultra-Fine Laura Pen Needle) #400 ea 08/04/23 [Rx Last Taken Unknown] Allergy/AdvReac Type Severity Reaction Status Date / Time lidocaine Allergy Severe Rash Verified 08/13/23 09:40 bacitracin Allergy Intermediate blisters Verified 08/13/23 09:40 hydrogen peroxide Allergy Intermediate blisters Verified 08/13/23 09:40 isopropyl alcohol Allergy Intermediate blisters Verified 08/13/23 09:40 Sulfa (Sulfonamide Allergy Intermediate Rash Verified 08/13/23 09:40 Antibiotics) Bleach (Sodium Hypochlorite) Allergy Hives Verified 08/13/23 09:40 insulin lispro Allergy HIVES, Verified 08/13/23 09:40 [From Humalog U-100 Insulin] REDNESS Latex, Natural Rubber Allergy Rash Verified 08/13/23 09:40 ondansetron [From Zofran] AdvReac Severe Constipatio Verified 08/13/23 09:40 n metformin AdvReac Vomiting Verified 08/13/23 09:40 neomycin AdvReac HIVES, Verified 08/13/23 09:40 [From Neosporin REDNESS ([id number])] polymyxin B AdvReac HIVES, Verified 08/13/23 09:40 [From Neosporin REDNESS ([id number])] Family History Other Arthritis Asthma CVA (cerebral vascular accident) Diabetes Heart disease High cholesterol Hypertension Kidney disease Osteoporosis Seizures Surgical History H/O left knee surgery H/O right knee surgery History of arteriovenostomy for renal dialysis History of bladder surgery History of History of cholecystectomy History of foot surgery History of infusaport central venous catheter removal History of liver biopsy History of lumpectomy of right breast History of shoulder surgery History of thoracentesis Hx of tonsillectomy Social History household members: family housing: house Smoking Status: Former smoker alcohol intake: never ROS ROS ED Constitutional Constitutional ED: Reports malaise; Denies chills or fever(s) Eyes Eyes: Denies change in vision or diplopia ENT ENT ED: Denies rhinorrhea or sore throat Cardiovascular Cardiovascular: Denies chest pain or palpitations Respiratory/Chest Respiratory/Chest: Denies cough or dyspnea Gastrointestinal Gastrointestinal: Reports abdominal pain and nausea; Denies diarrhea or vomiting Genitourinary Genitourinary ED: Denies dysuria or hematuria Musculoskeletal Musculoskeletal: Denies back pain or neck pain Integumentary Denies abscess or rash Neurologic Neurologic: Reports headache(s), paresthesias LUE (hand) and weakness Psychiatric Psychiatric: Denies anxiety or suicidal thoughts EXAM Physical Exam Const Vital Signs: 08/13/23 09:32 08/13/23 09:46 08/13/23 11:34 Temperature 97.6 F L Temperature Source Oral Pulse Rate 74 Respiratory Rate 12 Respiratory Pattern Normal Blood Pressure 191/86 H Blood Pressure Mean 121 Pulse Ox 99 Oxygen Delivery Method Room Air Room Air 08/13/23 11:34 Temperature Temperature Source Pulse Rate 74 Respiratory Rate 11 L Respiratory Pattern Blood Pressure Blood Pressure Mean Pulse Ox 95 Oxygen Delivery Method Room Air Positive well nourished, well developed and obese General Appearance ED: well developed and NAD Nutritional Appearance: obese HEENT Reports moist mucous membranes normocephalic and atraumatic Eyes PERRL and EOMs intact bilaterally Eyes Narrative: Normal visual field exam Neck full ROM and supple Resp normal respiratory effort and clear to auscultation bilaterally Cardio regular rate, regular rhythm and no murmurs GI non-distended GI Narrative: Tender with voluntary guarding left lower quadrant. Exam limited by morbid obesity. No rebound tenderness. Otherwise abdomen benign. Auscultation: normoactive bowel sounds Palpation: soft Back/Spine no CVA tenderness General Back: other FROM Extremity normal to inspection General Extremety ED: Negative for edema, pulses abnormal or tenderness General Extremity: Negative for edema or pulses abnormal Neuro oriented x3 and CN's II-XII intact bilaterally Sensorium / Orientation: awake and alert Psych mental status grossly normal Skin no rashes or lesions noted and no wounds NIHSS NIHSS Initial: 1a Level of Consciousness: 0 1b LOC Questions (Score 2 if aphasic/stupor): 0 1c LOC Commands (Only score 1st attempt): 0 2 Best Gaze (If aphasic, use reflexive mvmts.): 0 3 Visual: 0 4 Facial Palsy: 0 5 Motor Arm Right (UN = amputation/fusion): 0 5 Motor Arm Left: 1 6 Motor Leg Right: 2 6 Motor Leg Left: 2 7 Limb ataxia (Only + if out of proportion): 0 8 Sensory (Aphasia/stupor=0 or 1, coma=2): 1 9 Best Language: 0 10 Dysarthria (mute, coma=2, intubated=UN): 0 11 Extinction and Inattention (only scored if +): 0 Total Score: 6 MDM MDM MDM Narrative Medical decision making narrative: Stat CT of the head was obtained, negative for acute bleed or other acute finding. I reviewed the images and report and I agree with it and discussed with the radiologist in real-time. I also performed a CT of her abdomen/pelvis due to the significant tenderness she had a left lower quadrant, I reviewed the images and the report which I agree with, showing diverticulosis without diverticulitis, and no other acute intra-abdominal inflammatory abnormality. Also noted are bilateral pleural effusions, another version of her third spacing, she does not appear to be very symptomatic from these. My concern is her severely elevated blood pressure, which in context of possible acute ischemic stroke does not require emergent treatment here given the levels we are seen 170-190s, and she has acute/subacute deficits. Given this, plan will be for admission for further evaluation and Also discussed with nephrology since the patient did not have dialysis today. She does not have any signs of acute hyperkalemia on her EKG. potassium is slightly elevated, nephrology Dr. Staples states she does not need to Kayexalate or other medications right now, he will arrange for dialysis. Lab Data Attestation: I reviewed the patient's lab results. Labs: Laboratory Results - last 24 hr 08/13/23 08/13/23 08/13/23 10:15 10:15 11:20 WBC Cancelled 5.5 Corrected WBC Cancelled RBC Cancelled 3.34 L Hgb Cancelled 10.1 L Hct Cancelled 33.0 L MCV Cancelled 98.8 MCH Cancelled 30.2 MCHC Cancelled 30.6 L RDW Std Deviation Cancelled 48.9 H RDW Coeff of Juan Cancelled 13.5 Plt Count Cancelled 204 MPV Cancelled 9.7 Immature Gran % (Auto) Cancelled 0.400 Neut % (Auto) Cancelled 60.2 Lymph % (Auto) Cancelled 27.2 [place] % (Auto) Cancelled 4.4 Eos % (Auto) Cancelled 6.9 H Baso % (Auto) Cancelled 0.9 Absolute Neuts (auto) Cancelled 3.3 Absolute Lymphs (auto) Cancelled 1.49 Total Counted Cancelled Neutrophils % (Manual) Cancelled Band Neutrophils % Cancelled Lymphocytes % (Manual) Cancelled Monocytes % (Manual) Cancelled Eosinophils % (Manual) Cancelled Basophils % (Manual) Cancelled Metamyelocytes % Cancelled Myelocytes % Cancelled Promyelocytes % Cancelled Blast Cells % Cancelled Plasma Cell % (Manual) Cancelled Other Cells % Cancelled Nucleated RBC % Cancelled 0 Nucleated RBCs/100 WBC Cancelled Differential Comment Cancelled Diff Path Review Cancelled Hypersegmented Neuts Cancelled Atypical Lymphocytes Cancelled Reactive Lymphocytes Cancelled Smudge Cells Cancelled Toxic Granulation Cancelled Toxic Vacuolation Cancelled Dohle Bodies Cancelled Timothy Rods Cancelled Platelet Estimate Cancelled Plt Morphology Comment Cancelled RBC Morphology Cancelled Cancelled Polychromasia Cancelled Hypochromasia Cancelled Poikilocytosis Cancelled Basophilic Stippling Cancelled Anisocytosis Cancelled Microcytosis Cancelled Macrocytosis Cancelled Spherocytes Cancelled Sickle Cells Cancelled Target Cells Cancelled Tear Drop Cells Cancelled Ovalocytes Cancelled Stomatocytes Cancelled Gonzalez-Nilwood Bodies Cancelled Kerby Cells Cancelled Bite Cells Cancelled Crenated Cell Cancelled Acanthocytes (Spur) Cancelled Rouleaux Cancelled Schistocytes Cancelled PT Cancelled 13.3 INR Cancelled 1.0 APTT Cancelled 25.8 Sodium Cancelled 139 Potassium Cancelled 6.1 H* Chloride Cancelled 109 H Carbon Dioxide Cancelled 22.0 Anion Gap Cancelled 8 BUN Cancelled 47 H Creatinine Cancelled 5.02 H Estim Creat Clear Calc Cancelled 13.47 Est GFR (MDRD) Af Amer Cancelled 12 L Est GFR (MDRD) Non-Af Cancelled 10 L BUN/Creatinine Ratio Cancelled 9.4 L Glucose Cancelled 272 H Calcium Cancelled 8.5 Troponin I High Sens Cancelled 20 Radiography Diagnostic Testing: Clinical Impression(s) from Imaging Studies Brain CT 08/13/23 09:52 IMPRESSION: Normal unenhanced CT scan of the brain. N.B. : The above Results were Read Back by Vaughn Alves MD to Dr Delroy MD, and understanding confirmed on 08/13/2023 10:39:17 (ET). Electronically Signed: Vaughn Alves MD at 10:40 EST , ADDENDUM: 08/13/23 1047 IMPRESSION: Normal unenhanced CT scan of the brain. N.B. : The above Results were Read Back by Vaughn Alves MD to Dr Delroy MD, and understanding confirmed on 08/13/2023 10:39:17 (ET). Electronically Signed: Vaughn Alves MD at 10:40 EST , Abdomen/Pelvis CT 08/13/23 09:54 IMPRESSION: New small bilateral pleural effusions with bibasilar atelectasis. Status post cholecystectomy. Sigmoid diverticulosis. Small amount of air is seen within the urinary bladder. This most likely secondary to prior catheterization. Electronically Signed: Vaughn Alves MD at 10:59 EST , Chest X-Ray 08/13/23 10:30 IMPRESSION: No acute abnormality is seen. Electronically Signed: Vaughn Alves MD at 11:07 EST , Rhythm Strip Rhythm Strip: Sinus Rhythm Rate: 75 Ectopy: None EKG Initial EKG: Attestation: I personally reviewed and interpreted this EKG as follows: Interpretation: Sinus Rhythm and No Acute Injury Pattern Management Discussion w/another healthcare provider: Hospitalist, Quiller Machine [employer]er (Nephrology Jhoan) and Radiologist Discharge Plan Dx/Rx/DC Orders Clinical Impression: Hypertensive urgency, Chronic kidney disease with end stage renal failure on dialysis, LUE weakness, Hyperkalemia, diminished renal excretion Disposition Disposition: Acute Care Hospital [facility] Stroke Documentation Questions Stroke Team Activated: No (sx for 5d/timing) Was Patient considered for Endovascular Intervention?: No-CTA not indicated
--- NOTE | 2023-08-13 09:54 | CT_ITS ---
STUDY: CT ABDOMEN AND PELVIS WITHOUT CONTRAST REASON FOR EXAM: Female, 48 years old. LLQ pain, nausea RADIATION DOSAGE (If Supplied By Facility): CTDIvol = ( 44.99 ) mGy, DLP = ( 1597.84 ) mGycm TECHNIQUE: Transaxial images were obtained from the dome of the diaphragm to the symphysis pubis without oral contrast, and without intravenous contrast. Sagittal and coronal images were reconstructed. Individualized dose optimization techniques were used for this CT. COMPARISON: Comparison is made with prior study May 24, 2023. Small bilateral pleural effusions with bibasilar atelectasis. FINDINGS: The visualized lung bases are unremarkable. The visualized portions of the heart are within normal limits. Normal liver. There are surgical clips in the gallbladder fossa consistent with a prior cholecystectomy. Normal spleen. Normal pancreas. Normal bilateral adrenal glands. Normal right kidney. Normal left kidney. Normal visualized stomach. Normal small intestine. There are scattered colonic diverticula consistent with diverticulosis. The appendix is visualized and appears normal. Normal abdominal aorta. Normal inferior vena cava. There is a small retroperitoneal lymphadenopathy with enlarged nodes no greater than 10mm in the short axis diameter. A small amount of air is seen within the urinary bladder. This most likely represents Bass catheter insertion. Clinical correlation recommended. There is a small umbilical hernia containing fat. Normal osseous structures. CT/Abdomen/Pelvis without Cont IMPRESSION: New small bilateral pleural effusions with bibasilar atelectasis. Status post cholecystectomy. Sigmoid diverticulosis. Small amount of air is seen within the urinary bladder. This most likely secondary to prior catheterization. Electronically Signed: Vaughn Alves MD at 10:59 EST ,
--- NOTE | 2023-08-13 09:56 | NURSING ---
NO OLD EKG
--- NOTE | 2023-08-13 10:30 | RAD_ITS ---
STUDY: X-RAY CHEST REASON FOR EXAM: Female, 48 years old. Neuro deficit, acute, stroke suspected TECHNIQUE: Single AP portable view of the chest. COMPARISON: Comparison is made with prior study July 05, 2023. FINDINGS: EKG electrodes are seen. The lungs are clear and expanded. There is no demonstrated pleural abnormality. Normal size heart. Normal mediastinum and nahun. Normal visualized pulmonary arteries. There is atherosclerotic tortuosity of the aortic arch and descending thoracic aorta. Normal visualized thoracic spine. Normal visualized ribs, clavicles, and shoulders. There is no demonstrated abnormality of the visualized soft tissue structures of the upper abdomen. RAD/Chest 1 View IMPRESSION: No acute abnormality is seen. Electronically Signed: Vaughn Alves MD at 11:07 [facility] ,
[2023-08-13 11:37] LABS: Absolute Lymphocyte Count 1.49 X10^3/uL (0.83-4.51); Absolute Neutrophil Count 3.3 X10^3/uL (2.0-7.7); Basophil# 0.05 X10^3/uL; Basophil% 0.9 % (0-1); Eosinophil# 0.38 X10^3/uL; Eosinophils% 6.9 % (0-5); Hemoglobin 10.1 g/dL (12.0-15.0); Lymphocyte # 1.49 X10^3/ul (0.83-4.51); Lymphocyte % 27.2 % (19-41); Mean Corp Hgb Conc 30.6 g/dL (32-36); Mean Corpuscular Hgb 30.2 pg (27.0-32.0); Mean Corpuscular Volume 98.8 fL (81-99); Mean Platelet Vol. 9.7 fl (6.2-12.0); Monocyte# 0.24 X10^3/uL; Monocyte% 4.4 % (0-10); NRBC Flagged by Analyzer 0 % (0-5); Neutrophil % 60.2 % (47-70); Platelet Count 204 K/mm3 (150-450); RBC Distribution Width CV 13.5 % (11.6-14.6); RBC Distribution Width SD 48.9 fl (35.1-43.9); Red Blood Count 3.34 M/mm3 (4.2-5.4); White Blood Count 5.5 K/mm3 (4.4-11.0)
[2023-08-13 11:47] LABS: Prothrombin Time (Protime)PT. 13.3 SECONDS (11.7-14.9)
[2023-08-13 11:48] LABS: Partial Thromboplast Time 25.8 Seconds (24.1-36.2)
[2023-08-13 11:59] LABS: Anion Gap 8 (5-15); BUN 47 mg/dL (7-18); BUN/Creat Ratio 9.4 RATIO (10-20); Calcium,Total 8.5 mg/dL (8.5-10.1); Chloride 109 mmol/L (98-107); Creatinine, Serum 5.02 mg/dL (0.55-1.02); EST Glomerular Filtration Rate 10 mL/min (>60); Est Glom Filt Rate - Afr Amer 12 mL/min (>60); Estimated Creatinine Clearance 13.47 ml/min; Glucose 272 mg/dL (74-106); Potassium 6.1 mmol/L (3.5-5.1); Sodium Level 139 mmol/L (136-145); Troponin-I HS 20 pg/mL (3.0-54.0)
--- NOTE | 2023-08-13 13:15 | MRI_ITS ---
STUDY: MRI BRAIN WITHOUT CONTRAST REASON FOR EXAM: Female, 48 years old. Arm weakness TECHNIQUE: Multiplanar multisequence imaging of the brain was performed without the administration of intravenous contrast. COMPARISON: None. FINDINGS: The ventricles, cisterns, and sulci are within normal limits for patients age. There is no restricted diffusion to suggest acute ischemia or infarction. No succeptibility artifict to suggest intracranial hemorrhage or mineralization. Major intracranial signal voids are preserved. There is no midline shift, mass effect, or extra axial fluid collections are seen. No CP angle or IAC mass is seen. The orbits are unremarkable. The sella turcica and craniovertebral junction are within normal limits. The visualized paranasal sinuses are clear. Bilateral otomastoiditis, left side greater then right. MRI/Brain without Contrast IMPRESSION: No intracranial hemorrhage, acute infarct, or space occupying lesion seen on this noncontrast MRI of the brain. Electronically Signed: Lan Piña MD at 17:22 EST ,
[2023-08-13] MEDS: Labetalol (Prefilled) 20 MG/4 ML IV (13:25)
[2023-08-13] MEDS: LORazepam 2 MG/ML Syringe 1 MG IV (15:00)
[2023-08-13] MEDS: 0.9% Saline Lock 10 ML Syringe IV (15:00)
--- NOTE | 2023-08-13 16:30 | CON.PCM.RE_ITS ---
Assessment & Plan Assessment/Plan (1) Chronic kidney disease with end stage renal failure on dialysis: PLAN: ESRD. dialysis arranged for today. Hyperkalemia. HD on 2K bath stroke work up as per primary HPI Consult Data Date of Consult: 08/13/23 HPI Narrative Reason for Consultation: ESRD HPI Narrative: XOCHITL CHERRY, is a 48 F who presents to hospital with headache. she has known history of stroke in the past. presented with headache, significantly elevated BP values, left arm worsening weakness/numbness. she was directed to ER in view if suspected stroke. CT head in ER was done. [facility], [facility] Medical History Anxiety Arthritis Asthma Fleming esophagus Blackout Bruising delivery delivered Chronic kidney disease Depression Dietary restriction Difficulty swallowing Disc disorder Easy bruising ESRD needing dialysis FH: cholecystectomy Former smoker Gastric reflux High cholesterol History of CHF (congestive heart failure) History of Clostridium difficile infection History of echocardiogram History of edema History of stress test History of ulceration Hypertension Hypertension Injury of head and neck Insulin dependent diabetes mellitus Left foot amputee (~2019) Left hand pain Loss of hearing Low iron Migraine headache On home oxygen therapy Seasonal allergies Shortness of breath on exertion Stroke (~2021) Syncope Thyroid disease Transitioned from acute care to home health care Uses wheelchair Vision impairment Walker as ambulation aid Wears glasses Home Medications aspirin 81 mg tablet,delayed release 81 mg PO DAILY HEART HEALTH 06/23/22 [History Last Taken 01/19/23] bumetanide 1 mg tablet 1 mg PO DAILY FLUID 06/23/22 [History Last Taken 01/19/23] cetirizine 10 mg tablet 10 mg PO DAILY ALLERGIES 06/23/22 [History Last Taken 01/19/23] lamotrigine 50 mg disintegrating tablet 50 mg PO DAILY MOOD 06/23/22 [History Last Taken 01/20/23] losartan 50 mg tablet 75 mg PO DAILY BLOOD PRESSURE 06/23/22 [History Last Taken 01/20/23] pantoprazole 40 mg tablet,delayed release 40 mg PO DAILY ACID REFLUX 06/23/22 [History Last Taken 01/20/23] tamsulosin 0.4 mg capsule 0.4 mg PO QHS BLADDER 06/23/22 [History Last Taken 01/19/23] promethazine 25 mg tablet 25 mg PO Q6H PRN NAUSEA/VOMITING 09/01/22 [History Last Taken Unknown] sennosides 8.6 mg-docusate sodium 50 mg tablet (Senexon-S) 2 tab PO DAILY CONSTIPATION 09/01/22 [History Last Taken 01/17/23] atorvastatin 40 mg tablet 40 mg PO QHS #30 tabs 09/04/22 [Rx Last Taken 01/19/23] sucralfate 100 mg/mL oral suspension 2 ml PO TID 11/12/22 [History Last Taken 01/19/23] albuterol sulfate 2.5 mg/3 mL (0.083 %) solution for nebulization 2.5 mg inhalation Q4H PRN SOB 01/07/23 [History Last Taken 01/19/23] sucroferric oxyhydroxide 500 mg chewable tablet (Velphoro) 500 mg PO TID 01/07/23 [History Last Taken 01/19/23] acetaminophen 500 mg tablet 1,000 mg (2 x 500 mg) PO Q8 #0 tabs 01/22/23 [Rx Last Taken Unknown] cyclobenzaprine 10 mg tablet 10 mg PO TID PRN PRN Breakthrough Pain (>4/10) 7 days #21 tabs 01/22/23 [Rx Last Taken Unknown] gabapentin 100 mg capsule 300 mg (3 x 100 mg) PO QHS NERVE PAIN #21 caps 01/22/23 [Rx Last Taken Unknown] flash glucose sensor (FreeStyle Gissell 2 Sensor kit) #6 ea 03/16/23 [Rx Last Taken Unknown] hydrocodone 7.5 mg-acetaminophen 325 mg tablet 1 tab PO Q6H PRN pain 3 days #12 tabs 04/06/23 [Rx Last Taken Unknown] hydrocodone 7.5 mg-acetaminophen 325 mg tablet 1 tab PO Q6H PRN pain 3 days #12 tabs 04/12/23 [Rx Last Taken Unknown] Novolog FlexPen U-100 Insulin 100 unit/mL (3 mL) subcutaneous (insulin aspart U- 100) 6 - 10 unit (0.06 - 0.1 mL) subcut TID DIABETES #15 mL 08/04/23 [Rx Last Ta mathieu Unknown] insulin detemir U-100 100 unit/mL (3 mL) subcutaneous pen 26 unit (0.26 mL) subcut QHS DIABETES #30 mL 08/04/23 [Rx Last Taken Unknown] pen needle, diabetic 32 gauge x 5/32 (BD Ultra-Fine Laura Pen Needle) #400 ea 08/04/23 [Rx Last Taken Unknown] vitamin B complex-vitamin C-folic acid 0.8 mg tablet (Nephro-Chris) 1 tab PO DAILY supplement 08/13/23 [History Last Taken Unknown] Allergy/AdvReac Type Severity Reaction Status Date / Time lidocaine Allergy Severe Rash Verified 08/13/23 09:40 bacitracin Allergy Intermediate blisters Verified 08/13/23 09:40 hydrogen peroxide Allergy Intermediate blisters Verified 08/13/23 09:40 isopropyl alcohol Allergy Intermediate blisters Verified 08/13/23 09:40 Sulfa (Sulfonamide Allergy Intermediate Rash Verified 08/13/23 09:40 Antibiotics) Bleach (Sodium Hypochlorite) Allergy Hives Verified 08/13/23 09:40 insulin lispro Allergy HIVES, Verified 08/13/23 09:40 [From Humalog U-100 Insulin] REDNESS Latex, Natural Rubber Allergy Rash Verified 08/13/23 09:40 ondansetron [From Zofran] AdvReac Severe Constipatio Verified 08/13/23 09:40 n metformin AdvReac Vomiting Verified 08/13/23 09:40 neomycin AdvReac HIVES, Verified 08/13/23 09:40 [From Neosporin REDNESS ([id number])] polymyxin B AdvReac HIVES, Verified 08/13/23 09:40 [From Neosporin REDNESS ([id number])] Family History Other Arthritis Asthma CVA (cerebral vascular accident) Diabetes Heart disease High cholesterol Hypertension Kidney disease Osteoporosis Seizures Surgical History H/O left knee surgery H/O right knee surgery History of arteriovenostomy for renal dialysis History of bladder surgery History of History of cholecystectomy History of foot surgery History of infusaport central venous catheter removal History of liver biopsy History of lumpectomy of right breast History of shoulder surgery History of thoracentesis Hx of tonsillectomy Social History household members: family housing: house Smoking Status: Former smoker alcohol intake: never ROS ROS Narrative negative except above Physical Exam Narrative Alert awake oriented x 3 no obvious distress no pallor no icterus no JVD s1s2 no murmurs lungs clear abdomen soft no organomegaly no edema no cyanosis Lab / Micro Data 08/13/23 11:20 08/13/23 11:20 Labs: Laboratory Results - last 24 hr 08/13/23 10:15: WBC Cancelled, Corrected WBC Cancelled, RBC Cancelled, Hgb Cancelled, Hct Cancelled, MCV Cancelled, MCH Cancelled, MCHC Cancelled, RDW Std Deviation Cancelled, RDW Coeff of Juan Cancelled, Plt Count Cancelled, MPV Cancelled, Immature Gran % (Auto) Cancelled, Neut % (Auto) Cancelled, Lymph % (Auto) Cancelled, Grady % (Auto) Cancelled, Eos % (Auto) Cancelled, Baso % (Auto) Cancelled, Absolute Neuts (auto) Cancelled, Absolute Lymphs (auto) Cancelled, Total Counted Cancelled, Neutrophils % (Manual) Cancelled, Band Neutrophils % Cancelled, Lymphocytes % (Manual) Cancelled, Monocytes % (Manual) Cancelled, Eosinophils % (Manual) Cancelled, Basophils % (Manual) Cancelled, Metamyelocytes % Cancelled, Myelocytes % Cancelled, Promyelocytes % Cancelled, Blast Cells % Cancelled, Plasma Cell % (Manual) Cancelled, Other Cells % Cancelled, Nucleated RBC % Cancelled, Nucleated RBCs/100 WBC Cancelled, Differential Comment Cancelled, Diff Path Review Cancelled, Hypersegmented Neuts Cancelled, Atypical Lymphocytes Cancelled, Reactive Lymphocytes Cancelled, Smudge Cells Cancelled, Toxic Granulation Cancelled, Toxic Vacuolation Cancelled, Dohle Bodies Cancelled, Timothy Rods Cancelled, Platelet Estimate Cancelled, Plt Morphology Comment Cancelled, RBC Morphology Cancelled 08/13/23 10:15: RBC Morphology Cancelled, Polychromasia Cancelled, Hypochromasia Cancelled, Poikilocytosis Cancelled, Basophilic Stippling Cancelled, Anisocytosis Cancelled, Microcytosis Cancelled, Macrocytosis Cancelled, Spherocytes Cancelled, Sickle Cells Cancelled, Target Cells Cancelled, Tear Drop Cells Cancelled, Ovalocytes Cancelled, Stomatocytes Cancelled, [place] Bodies Cancelled, [place] Cells Cancelled, Bite Cells Cancelled, Crenated Cell Cancelled, Acanthocytes (Spur) Cancelled, Rouleaux Cancelled, Schistocytes Cancelled, PT Cancelled, INR Cancelled, APTT Cancelled, Sodium Cancelled, Potassium Cancelled, Chloride Cancelled, Carbon Dioxide Cancelled, Anion Gap Cancelled, BUN Cancelled, Creatinine Cancelled, Estim Creat Clear Calc Cancelled, Est GFR (MDRD) Af Amer Cancelled, Est GFR (MDRD) Non-Af Cancelled, BUN/Creatinine Ratio Cancelled, Glucose Cancelled, Calcium Cancelled, Troponin I High Sens Cancelled 08/13/23 11:20: WBC 5.5, RBC 3.34 L, Hgb 10.1 L, Hct 33.0 L, MCV 98.8, MCH 30.2, MCHC 30.6 L, RDW Std Deviation 48.9 H, RDW Coeff of Juan 13.5, Plt Count 204, MPV 9.7, Immature Gran % (Auto) 0.400, Neut % (Auto) 60.2, Lymph % (Auto) 27.2, Grady % (Auto) 4.4, Eos % (Auto) 6.9 H, Baso % (Auto) 0.9, Absolute Neuts (auto) 3.3, Absolute Lymphs (auto) 1.49, Nucleated RBC % 0, PT 13.3, INR 1.0, APTT 25.8, Sodium 139, Potassium 6.1 H*, Chloride 109 H, Carbon Dioxide 22.0, Anion Gap 8, BUN 47 H, Creatinine 5.02 H, Estim Creat Clear Calc 13.47, Est GFR (MDRD) Af Amer 12 L, Est GFR (MDRD) Non-Af 10 L, BUN/Creatinine Ratio 9.4 L, Glucose 272 H , Calcium 8.5, Troponin I High Sens 20 Rhythm Strip Rhythm Strip: Sinus Rhythm Rate: 75 Ectopy: None Radiology Impression Brain CT 08/13/23 09:52 IMPRESSION: Normal unenhanced CT scan of the brain. N.B. : The above Results were Read Back by Vaughn Alves MD to Dr Delroy MD, and understanding confirmed on 08/13/2023 10:39:17 (ET). Electronically Signed: Vaughn Alves MD at 10:40 EST , ADDENDUM: 08/13/23 1047 IMPRESSION: Normal unenhanced CT scan of the brain. N.B. : The above Results were Read Back by Vaughn Alves MD to Dr Delroy MD, and understanding confirmed on 08/13/2023 10:39:17 (ET). Electronically Signed: Vaughn Alves MD at 10:40 EST , Abdomen/Pelvis CT 08/13/23 09:54 IMPRESSION: New small bilateral pleural effusions with bibasilar atelectasis. Status post cholecystectomy. Sigmoid diverticulosis. Small amount of air is seen within the urinary bladder. This most likely secondary to prior catheterization. Electronically Signed: Vaughn Alves MD at 10:59 EST , Chest X-Ray 08/13/23 10:30 IMPRESSION: No acute abnormality is seen. Electronically Signed: Vaughn Alves MD at 11:07 EST ,
[2023-08-13 16:38] LABS: Bedside Glucose 208 mg/dL (74-106)
--- NOTE | 2023-08-13 16:53 | PCM.HP.STD ---
HPI - General General Date of Admission: 08/13/23 Date of Service: 08/13/23 Chief Complaint: Headache, elevated blood pressure HPI Narrative XOCHITL CHERRY, is a 48 F who presents to the emergency room at [facility] for evaluation. Triage notes state that the patient had abdominal pain and a headache, patient tells this examiner that she had a headache and her blood pressure was elevated. Upon evaluation by the emergency room physician, the patient told the emergency room physician she had left arm weakness and headache. Evaluation in the emergency room revealed her blood pressure to be 191/86, patient's NIH stroke score was 6, lab revealed a normal CBC except for a hemoglobin of 10.1, patient's chemistry profile revealed a potassium of 6.1, chloride was 109, BUN was 47, and creatinine was 5.02. Blood sugar was 272. CT of the brain was normal. Patient had a CT of the abdomen and pelvis without contrast, this revealed new small bilateral pleural effusions with bibasilar atelectasis. Patient's chest x-ray was unremarkable. Patient told this examiner that her left side is always weak. Patient will be placed in observation status on PCU, she will undergo an MRI of the brain to rule out stroke, blood pressure will be monitored and blood pressure medications will be adjusted as needed, she will undergo dialysis today-she did not undergo her regular dialysis today. [facility] Medical History Anxiety Arthritis Asthma Fleming esophagus Blackout Bruising delivery delivered Chronic kidney disease Depression Dietary restriction Difficulty swallowing Disc disorder Easy bruising ESRD needing dialysis FH: cholecystectomy Former smoker Gastric reflux High cholesterol History of CHF (congestive heart failure) History of Clostridium difficile infection History of echocardiogram History of edema History of stress test History of ulceration Hypertension Hypertension Injury of head and neck Insulin dependent diabetes mellitus Left foot amputee (~2019) Left hand pain Loss of hearing Low iron Migraine headache On home oxygen therapy Seasonal allergies Shortness of breath on exertion Stroke (~2021) Syncope Thyroid disease Transitioned from acute care to home health care Uses wheelchair Vision impairment Walker as ambulation aid Wears glasses Home Medications aspirin 81 mg tablet,delayed release 81 mg PO DAILY HEART HEALTH 06/23/22 [History Last Taken 01/19/23] bumetanide 1 mg tablet 1 mg PO DAILY FLUID 06/23/22 [History Last Taken 01/19/23] cetirizine 10 mg tablet 10 mg PO DAILY ALLERGIES 06/23/22 [History Last Taken 01/19/23] lamotrigine 50 mg disintegrating tablet 50 mg PO DAILY MOOD 06/23/22 [History Last Taken 01/20/23] losartan 50 mg tablet 75 mg PO DAILY BLOOD PRESSURE 06/23/22 [History Last Taken 01/20/23] pantoprazole 40 mg tablet,delayed release 40 mg PO DAILY ACID REFLUX 06/23/22 [History Last Taken 01/20/23] tamsulosin 0.4 mg capsule 0.4 mg PO QHS BLADDER 06/23/22 [History Last Taken 01/19/23] promethazine 25 mg tablet 25 mg PO Q6H PRN NAUSEA/VOMITING 09/01/22 [History Last Taken Unknown] atorvastatin 40 mg tablet 40 mg PO QHS #30 tabs 09/04/22 [Rx Last Taken 01/19/23] sucralfate 100 mg/mL oral suspension 10 ml PO TID 11/12/22 [History Last Taken 01/19/23] albuterol sulfate 2.5 mg/3 mL (0.083 %) solution for nebulization 2.5 mg inhalation Q4H PRN SOB 01/07/23 [History Last Taken 01/19/23] sucroferric oxyhydroxide 500 mg chewable tablet (Velphoro) 500 mg PO TID 01/07/23 [History Last Taken 01/19/23] cyclobenzaprine 10 mg tablet 10 mg PO TID PRN PRN Breakthrough Pain (>4/10) 7 days #21 tabs 01/22/23 [Rx Last Taken Unknown] gabapentin 100 mg capsule 300 mg (3 x 100 mg) PO QHS NERVE PAIN #21 caps 01/22/23 [Rx Last Taken Unknown] flash glucose sensor (FreeStyle Gissell 2 Sensor kit) #6 ea 03/16/23 [Rx Last Taken Unknown] hydrocodone 7.5 mg-acetaminophen 325 mg tablet 1 tab PO Q6H PRN pain 3 days #12 tabs 04/06/23 [Rx Last Taken Unknown] hydrocodone 7.5 mg-acetaminophen 325 mg tablet 1 tab PO Q6H PRN pain 3 days #12 tabs 04/12/23 [Rx Last Taken Unknown] insulin detemir U-100 100 unit/mL (3 mL) subcutaneous pen 26 unit (0.26 mL) subcut QHS DIABETES #30 mL 08/04/23 [Rx Last Taken Unknown] pen needle, diabetic 32 gauge x /32 (BD Ultra-Fine Laura Pen Needle) #400 ea 08/04/23 [Rx Last Taken Unknown] acetaminophen 500 mg tablet 1,000 mg PO Q4H PRN pain 08/13/23 [History Last Taken Unknown] dicyclomine 10 mg capsule 10 mg PO BID stomach 08/13/23 [History Last Taken Unknown] insulin aspart U-100 100 unit/mL (3 mL) subcutaneous pen (Novolog FlexPen U-100 Insulin aspart) 15 unit subcut TID DIABETES 08/13/23 [History Last Taken Unknown] vitamin B complex-vitamin C-folic acid 0.8 mg tablet (Nephro-Chris) 1 tab PO DAILY supplement 08/13/23 [History Last Taken Unknown] Allergy/AdvReac Type Severity Reaction Status Date / Time lidocaine Allergy Severe Rash Verified 08/13/23 09:40 bacitracin Allergy Intermediate blisters Verified 08/13/23 09:40 hydrogen peroxide Allergy Intermediate blisters Verified 08/13/23 09:40 isopropyl alcohol Allergy Intermediate blisters Verified 08/13/23 09:40 Sulfa (Sulfonamide Allergy Intermediate Rash Verified 08/13/23 09:40 Antibiotics) Bleach (Sodium Hypochlorite) Allergy Hives Verified 08/13/23 09:40 insulin lispro Allergy HIVES, Verified 08/13/23 09:40 [From Humalog U-100 Insulin] REDNESS Latex, Natural Rubber Allergy Rash Verified 08/13/23 09:40 ondansetron [From Zofran] AdvReac Severe Constipatio Verified 08/13/23 09:40 n metformin AdvReac Vomiting Verified 08/13/23 09:40 neomycin AdvReac HIVES, Verified 08/13/23 09:40 [From Neosporin REDNESS ([id number])] polymyxin B AdvReac HIVES, Verified 08/13/23 09:40 [From Neosporin REDNESS ([id number])] Family History Other Arthritis Asthma CVA (cerebral vascular accident) Diabetes Heart disease High cholesterol Hypertension Kidney disease Osteoporosis Seizures Surgical History H/O left knee surgery H/O right knee surgery History of arteriovenostomy for renal dialysis History of bladder surgery History of History of cholecystectomy History of foot surgery History of infusaport central venous catheter removal History of liver biopsy History of lumpectomy of right breast History of shoulder surgery History of thoracentesis Hx of tonsillectomy Social History household members: family housing: house Smoking Status: Former smoker alcohol intake: never ROS Constitutional Constitutional: Denies anorexia, change in weight, chills, fatigue, fever(s), malaise, night sweats or weakness Eyes Eyes: Denies blurry vision, change in vision, discharge from eye(s) or eye pain Cardiovascular Cardiovascular: Denies chest pain, claudication, dyspnea on exertion, edema, lightheadedness or palpitations Respiratory/Chest Respiratory/Chest: Denies cough, hemoptysis, shortness of breath at rest or shortness of breath with exertion Gastrointestinal Gastrointestinal: Denies abdominal pain, constipation, diarrhea, hematemesis, hematochezia, melena, nausea or vomiting Musculoskeletal Musculoskeletal: Reports joint pain and other Details: Patient has chronic left leg pain along with left foot drop ; Denies back pain, joint stiffness, joint swelling, myalgias or neck pain Neurologic Neurologic: Reports focal weakness; Denies abnormal gait, abnormal speech, confusion, disequilibrium, dizziness, headache(s), loss of vision, numbness, other visual disturbances, paresthesias, syncope or tingling Psychiatric Psychiatric: Denies anxiety, cognitive impairment, depression, irritability, mood swings or suicidal ideation Endocrine Endocrinology: Denies change in body appearance, cold intolerance, excessive sweating, heat intolerance, polydipsia or polyuria Hematologic/Lymphatic Hematologic/Lymphatic: Denies none, anemia, easy bleeding, easy bruising or lymphadenopathy Allergic/Immunologic Allergic/Immunologic: Denies rhinitis, urticaria, eczemia or asthma Vital Signs Vital Signs Vital Signs: 08/13/23 09:32 08/13/23 09:46 08/13/23 11:34 Temperature 97.6 F L Temperature Source Oral Pulse Rate 74 Respiratory Rate 12 Respiratory Pattern Normal Blood Pressure 191/86 H Blood Pressure Mean 121 Blood Pressure Source Blood Pressure Position Blood Pressure Location Pulse Ox 99 Oxygen Delivery Method Room Air Room Air 08/13/23 11:34 08/13/23 12:37 08/13/23 13:00 Temperature Temperature Source Pulse Rate 74 76 Respiratory Rate 11 L 18 Respiratory Pattern Blood Pressure 228/96 H Blood Pressure Mean 140 Blood Pressure Source Blood Pressure Position Blood Pressure Location Pulse Ox 95 97 Oxygen Delivery Method Room Air Room Air 08/13/23 14:07 08/13/23 14:10 08/13/23 14:35 Temperature 97 F L 97.6 F L Temperature Source Oral Pulse Rate 71 72 Respiratory Rate 19 H 16 Respiratory Pattern Blood Pressure 217/68 H 176/71 H Blood Pressure Mean 117 106 Blood Pressure Source Monitor Blood Pressure Position Semi-Fowlers Blood Pressure Location Right Forearm Pulse Ox 93 98 Oxygen Delivery Method Room Air Room Air 08/13/23 15:31 08/13/23 15:45 08/13/23 15:58 Temperature Temperature Source Pulse Rate 76 71 75 Respiratory Rate 18 18 Respiratory Pattern Blood Pressure 178/84 H 167/86 H 183/69 H Blood Pressure Mean 115 113 107 Blood Pressure Source Monitor Monitor Monitor Blood Pressure Position Supine Supine Supine Blood Pressure Location Right Arm Right Arm Right Arm Pulse Ox 91 91 91 Oxygen Delivery Method Room Air Room Air Room Air 08/13/23 14:35 Temperature Temperature Source Pulse Rate Respiratory Rate Respiratory Pattern Blood Pressure Blood Pressure Mean Blood Pressure Source Blood Pressure Position Blood Pressure Location Pulse Ox Oxygen Delivery Method Room Air Weight Weight: 138.9 kg Body Mass Index (BMI) 47.9 Physical Exam Const alert, oriented x3 and no apparent distress Constitutional Narrative: Patient is morbidly obese General Appearance: cooperative, well kempt and well developed Orientation / Consciousness: awake, oriented to person, oriented to place and oriented to time HEENT normocephalic, head/scalp atraumatic, hearing grossly normal bilaterally and moist oral mucous membranes Eyes PERRL, EOMs intact bilaterally and conjunctivae normal Neck supple, no JVD, thyroid normal and no carotid bruits General: trachea midline Resp normal respiratory effort, no retractions, no use of accessory muscles and clear to auscultation bilaterally Auscultation: Negative for rales, rhonchi or wheezes Cardio regular rate, regular rhythm, S1 normal heart sound, S2 normal heart sound, no murmurs, no rub and no gallops GI normal to inspection, nondistended, normoactive bowel sounds, soft to palpation, non-tender and non-distended Extremity Extremity Narrative: Patient has a brace on her left lower leg Skin no rashes or lesions noted General Skin Exam: no breakdown Neuro oriented x3, CN's II-XII intact bilaterally, moves all extremities, no focal motor deficits and no sensory deficits noted Sensorium / Orientation: awake, alert, oriented to person, oriented to place and oriented to time Speech: speech normal Psych affect normal Results Lab / Micro Data 08/13/23 11:20 08/13/23 11:20 Labs: Laboratory Results - last 24 hr 08/13/23 10:15: WBC Cancelled, Corrected WBC Cancelled, RBC Cancelled, Hgb Cancelled, Hct Cancelled, MCV Cancelled, MCH Cancelled, MCHC Cancelled, RDW Std Deviation Cancelled, RDW Coeff of Juan Cancelled, Plt Count Cancelled, MPV Cancelled, Immature Gran % (Auto) Cancelled, Neut % (Auto) Cancelled, Lymph % (Auto) Cancelled, Alfalfa % (Auto) Cancelled, Eos % (Auto) Cancelled, Baso % (Auto) Cancelled, Absolute Neuts (auto) Cancelled, Absolute Lymphs (auto) Cancelled, Total Counted Cancelled, Neutrophils % (Manual) Cancelled, Band Neutrophils % Cancelled, Lymphocytes % (Manual) Cancelled, Monocytes % (Manual) Cancelled, Eosinophils % (Manual) Cancelled, Basophils % (Manual) Cancelled, Metamyelocytes % Cancelled, Myelocytes % Cancelled, Promyelocytes % Cancelled, Blast Cells % Cancelled, Plasma Cell % (Manual) Cancelled, Other Cells % Cancelled, Nucleated RBC % Cancelled, Nucleated RBCs/100 WBC Cancelled, Differential Comment Cancelled, Diff Path Review Cancelled, Hypersegmented Neuts Cancelled, Atypical Lymphocytes Cancelled, Reactive Lymphocytes Cancelled, Smudge Cells Cancelled, Toxic Granulation Cancelled, Toxic Vacuolation Cancelled, Dohle Bodies Cancelled, Timothy Rods Cancelled, Platelet Estimate Cancelled, Plt Morphology Comment Cancelled, RBC Morphology Cancelled 08/13/23 10:15: RBC Morphology Cancelled, Polychromasia Cancelled, Hypochromasia Cancelled, Poikilocytosis Cancelled, Basophilic Stippling Cancelled, Anisocytosis Cancelled, Microcytosis Cancelled, Macrocytosis Cancelled, Spherocytes Cancelled, Sickle Cells Cancelled, Target Cells Cancelled, Tear Drop Cells Cancelled, Ovalocytes Cancelled, Stomatocytes Cancelled, Gonzalez-Plover Bodies Cancelled, Musella Cells Cancelled, Bite Cells Cancelled, Crenated Cell Cancelled, Acanthocytes (Spur) Cancelled, Rouleaux Cancelled, Schistocytes Cancelled, PT Cancelled, INR Cancelled, APTT Cancelled, Sodium Cancelled, Potassium Cancelled, Chloride Cancelled, Carbon Dioxide Cancelled, Anion Gap Cancelled, BUN Cancelled, Creatinine Cancelled, Estim Creat Clear Calc Cancelled, Est GFR (MDRD) Af Amer Cancelled, Est GFR (MDRD) Non-Af Cancelled, BUN/Creatinine Ratio Cancelled, Glucose Cancelled, Calcium Cancelled, Troponin I High Sens Cancelled 08/13/23 11:20: WBC 5.5, RBC 3.34 L, Hgb 10.1 L, Hct 33.0 L, MCV 98.8, MCH 30.2, MCHC 30.6 L, RDW Std Deviation 48.9 H, RDW Coeff of Juan 13.5, Plt Count 204, MPV 9.7, Immature Gran % (Auto) 0.400, Neut % (Auto) 60.2, Lymph % (Auto) 27.2, Alfalfa % (Auto) 4.4, Eos % (Auto) 6.9 H, Baso % (Auto) 0.9, Absolute Neuts (auto) 3.3, Absolute Lymphs (auto) 1.49, Nucleated RBC % 0, PT 13.3, INR 1.0, APTT 25.8, Sodium 139, Potassium 6.1 H*, Chloride 109 H, Carbon Dioxide 22.0, Anion Gap 8, BUN 47 H, Creatinine 5.02 H, Estim Creat Clear Calc 13.47, Est GFR (MDRD) Af Amer 12 L, Est GFR (MDRD) Non-Af 10 L, BUN/Creatinine Ratio 9.4 L, Glucose 272 H, Calcium 8.5, Troponin I High Sens 20 08/13/23 16:19: POC Glucose 208 H Rhythm Strip Rhythm Strip: Sinus Rhythm Rate: 75 Ectopy: None Radiology Impression Brain CT 08/13/23 09:52 IMPRESSION: Normal unenhanced CT scan of the brain. N.B. : The above Results were Read Back by Vaughn Alves MD to Dr Delroy MD, and understanding confirmed on 08/13/2023 10:39:17 (ET). Electronically Signed: Vaughn Alves MD at 10:40 EST , ADDENDUM: 08/13/23 1047 IMPRESSION: Normal unenhanced CT scan of the brain. N.B. : The above Results were Read Back by Vaughn Alves MD to Dr Delroy MD, and understanding confirmed on 08/13/2023 10:39:17 (ET). Electronically Signed: Vaughn Alves MD at 10:40 EST , Abdomen/Pelvis CT 08/13/23 09:54 IMPRESSION: New small bilateral pleural effusions with bibasilar atelectasis. Status post cholecystectomy. Sigmoid diverticulosis. Small amount of air is seen within the urinary bladder. This most likely secondary to prior catheterization. Electronically Signed: Vaughn Alves MD at 10:59 EST , Chest X-Ray 08/13/23 10:30 IMPRESSION: No acute abnormality is seen. Electronically Signed: Vaughn Alves MD at 11:07 EST , Assessment & Plan Assessment/Plan (1) LUE weakness: PLAN: Plan 1. Cephalgia-etiology unclear, patient will be placed in observation status on PCU, her blood pressure will be monitored, she will be seen by nephrology and undergo dialysis, she will have an MRI of the brain performed without contrast. NH scores will be monitored. Patient denied any left arm weakness beyond her baseline to this examiner. #2 uncontrolled hypertension-patient's blood pressure will be monitored, her medications will be adjusted as needed #3 hyperkalemia-secondary to end-stage renal disease with noncompliance with outpatient dialysis, patient will be dialyzed today #4 cerebrovascular disease-patient has a past history of a stroke on a previous MRI, she will remain on aspirin #5 end-stage renal disease requiring dialysis-patient will be seen in consultation by nephrology and undergo dialysis today #6 morbid obesity-complicates care, medical course, recovery, and prognosis Total clinical time spent by myself addressing the patient's medical issues, reviewing all of her data, and collaborating with patient's care team: 55 minutes Charges/Coding Visit Charges Inpatient E&M: 86569 Init Hosp L2
[2023-08-13] MEDS: 0.9% Normal Saline 1,000 ML IV.SOLN. 1000 ML OPERA.SITE (17:38)
[2023-08-13] MEDS: PureFlow B 2K Dialysis Soln 1 BAG 6 BAG PF (17:38)
[2023-08-13] MEDS: Atorvastatin Calcium 40 MG Tablet PO (22:34)
[2023-08-13] MEDS: Tamsulosin HCl 0.4 MG Capsule PO (22:35)
[2023-08-13] MEDS: Heparin Injection (Vial) 5,000 UNIT/ML VIAL 5000 UNIT SC (22:35)
[2023-08-13] MEDS: Dicyclomine 10 MG Capsule PO (22:35)
[2023-08-13] MEDS: Gabapentin 100 MG Capsule 300 MG PO (22:39)
[2023-08-13] MEDS: Acetaminophen/Butalbital/Caffe 1 Tablet PO (23:11)
[2023-08-13] MEDS: Insulin Glargine-YFGN 100 UNIT/ML Pen 25 UNIT SC (23:15)
[2023-08-13 23:38] LABS: Bedside Glucose 279 mg/dL (74-106)
[2023-08-14 02:50] VITALS: BMI 46.7
[2023-08-14 04:20] VITALS: BP 149/56; PULSE 68; RESP 16; TEMP 36.6; O2SAT 97
[2023-08-14] MEDS: Sucralfate 1 GM Tablet PO (06:45)
[2023-08-14 07:13] LABS: Bedside Glucose 238 mg/dL (74-106)
[2023-08-14 07:20] VITALS: O2SAT 99
[2023-08-14 07:54] LABS: Cholesterol 133 mg/dL (200); High Density Lipoprotein 87 mg/dL; Triglycerides 48 mg/dL; Very Low Density Lipoprotein 10 mg/dL (5-40)
--- NOTE | 2023-08-14 08:52 | DCINST_ITS ---
Discharge Instructions Diet Discharge Diet: Renal Diet Activity Discharge Activity: Return to Normal Activity Weight Bearing Status: Full weight bearing Follow Up Care Test Results: Test results from this visit will be discussed in further detail at your follow- up appointment, if applicable. Discharge Plan Admission Admit Date/Time: 08/13/23 12:54 Primary Reason for Your Visit: NSTEMI Attending Provider: Houston Kramer Primary Care Provider: Maddy Anaya Consulting Providers: José Miguel Staples Instructions Additional Instructions / Restrictions: Follow-up with your primary care physician as scheduled Discharge Orders/Prescriptions Prescriptions: New sennosides-docusate sodium [Stool Softener-Stimulant Laxat] 8.6-50 mg Tablet 2 tab PO DAILY Qty: 0 0RF lamotrigine 25 mg Tablet, Chewable Dispersible 50 mg PO DAILY Qty: 60 0RF pantoprazole 40 mg Tablet,Delayed Release (Dr/Ec) 40 mg PO DAILY Qty: 30 0RF dicyclomine 10 mg Capsule 10 mg PO BID Qty: 60 0RF sucralfate 1 gram Tablet 1 g PO TID@0700,1100,1600 Qty: 90 0RF Continued aspirin 81 mg tablet,delayed release (DR/EC) 81 mg PO DAILY cetirizine 10 mg tablet 10 mg PO DAILY pantoprazole 40 mg tablet,delayed release (DR/EC) 40 mg PO DAILY bumetanide 1 mg tablet 1 mg PO DAILY losartan 50 mg tablet 75 mg PO DAILY tamsulosin 0.4 mg capsule 0.4 mg PO QHS sucralfate 100 mg/mL suspension 10 ml PO TID promethazine 25 mg tablet 25 mg PO Q6H PRN (Reason: NAUSEA/VOMITING) atorvastatin 40 mg Tablet 40 mg PO QHS Qty: 30 1RF albuterol sulfate 2.5 mg /3 mL (0.083 %) Solution For Nebulization 2.5 mg INHALATION Q4H PRN (Reason: SOB) Velphoro 500 mg Tablet,Chewable 500 mg PO TID cyclobenzaprine 10 mg Tablet 10 mg PO TID PRN PRN (Reason: Breakthrough Pain (>4/10)) 7 Days Qty: 21 0RF gabapentin 100 mg capsule 300 mg PO QHS Qty: 21 0RF hydrocodone-acetaminophen 7.5-325 mg tablet 1 tab PO Q6H PRN (Reason: pain) 3 Days Qty: 12 0RF hydrocodone-acetaminophen 7.5-325 mg tablet 1 tab PO Q6H PRN (Reason: pain) 3 Days Qty: 12 0RF Nephro-Chris 0.8 mg tablet 1 tab PO DAILY dicyclomine 10 mg capsule 10 mg PO BID acetaminophen 500 mg Tablet 1,000 mg PO Q4H PRN (Reason: pain) insulin aspart U-100 [Novolog FlexPen U-100 Insulin] 100 unit/mL (3 mL) ins ulin pen 15 unit subcut TID (DME) FreeStyle Gissell 2 Sensor Kit See Rx Instructions .Route Qty: 6 1RF Rx Instructions: 1 sensor q 14 days insulin detemir U-100 100 unit/mL (3 mL) insulin pen 26 unit subcut QHS Qty: 30 0RF (DME) pen needle, diabetic [BD Ultra-Fine Laura Pen Needle] 32 gauge x 5/32 needle See Rx Instructions .ROUTE .MEDSUPPLY Qty: 400 3RF Rx Instructions: 4 times daily Discontinued lamotrigine 50 mg tablet,disintegrating 50 mg PO DAILY Referrals / Follow Up: Maddy Anaya MD [Primary Care Provider] - Disposition Disposition (needs filled in before D/C Order can be placed): Home, Self Care
--- NOTE | 2023-08-14 09:05 | PCM.DC.SUM ---
Providers Date of Admission: 08/13/23 Date of Discharge: 08/14/23 Primary Care Physician: Dr. Maddy Anaya MD Consultations 08/13/23 14:26 Consult: Nephrology Routine Consulting Provider: José Miguel Staples Reason for Consult: ESRD EMERGENT Consult: No MD Notified: Yes Date Notified: 08/13/23 Time Notified: 13:05 Method of Notification: Verbal Reason For Visit: R/O CVA Diagnosis Discharge Diagnosis (1) LUE weakness: Status: Acute Code(s): R29.898 - Other symptoms and signs involving the musculoskeletal system Plan 1. Cephalgia-etiology unclear, patient will be placed in observation status on PCU, her blood pressure will be monitored, she will be seen by nephrology and undergo dialysis, she will have an MRI of the brain performed without contrast. NH scores will be monitored. Patient denied any left arm weakness beyond her baseline to this examiner. #2 uncontrolled hypertension-patient's blood pressure will be monitored, her medications will be adjusted as needed #3 hyperkalemia-secondary to end-stage renal disease with noncompliance with outpatient dialysis, patient will be dialyzed today #4 cerebrovascular disease-patient has a past history of a stroke on a previous MRI, she will remain on aspirin #5 end-stage renal disease requiring dialysis-patient will be seen in consultation by nephrology and undergo dialysis today #6 morbid obesity-complicates care, medical course, recovery, and prognosis Total clinical time spent by myself addressing the patient's medical issues, reviewing all of her data, and collaborating with patient's care team: 55 minutes Medications at Discharge Home Medications aspirin 81 mg tablet,delayed release 81 mg PO DAILY HEART HEALTH 06/23/22 bumetanide 1 mg tablet 1 mg PO DAILY FLUID 06/23/22 cetirizine 10 mg tablet 10 mg PO DAILY ALLERGIES 06/23/22 losartan 50 mg tablet 75 mg PO DAILY BLOOD PRESSURE 06/23/22 pantoprazole 40 mg tablet,delayed release 40 mg PO DAILY ACID REFLUX 06/23/22 tamsulosin 0.4 mg capsule 0.4 mg PO QHS BLADDER 06/23/22 promethazine 25 mg tablet 25 mg PO Q6H PRN NAUSEA/VOMITING 09/01/22 atorvastatin 40 mg tablet 40 mg PO QHS #30 tabs 09/04/22 sucralfate 100 mg/mL oral suspension 10 ml PO TID 11/12/22 albuterol sulfate 2.5 mg/3 mL (0.083 %) solution for nebulization 2.5 mg inhalation Q4H PRN SOB 01/07/23 sucroferric oxyhydroxide 500 mg chewable tablet (Velphoro) 500 mg PO TID 01/07/23 cyclobenzaprine 10 mg tablet 10 mg PO TID PRN PRN Breakthrough Pain (>4/10) 7 days #21 tabs 01/22/23 gabapentin 100 mg capsule 300 mg (3 x 100 mg) PO QHS NERVE PAIN #21 caps 01/22/23 flash glucose sensor (FreeStyle Gissell 2 Sensor kit) #6 ea 03/16/23 hydrocodone 7.5 mg-acetaminophen 325 mg tablet 1 tab PO Q6H PRN pain 3 days #12 tabs 04/06/23 hydrocodone 7.5 mg-acetaminophen 325 mg tablet 1 tab PO Q6H PRN pain 3 days #12 tabs 04/12/23 insulin detemir U-100 100 unit/mL (3 mL) subcutaneous pen 26 unit (0.26 mL) subcut QHS DIABETES #30 mL 08/04/23 pen needle, diabetic 32 gauge x 5/32 (BD Ultra-Fine Laura Pen Needle) #400 ea 08/04/23 acetaminophen 500 mg tablet 1,000 mg PO Q4H PRN pain 08/13/23 dicyclomine 10 mg capsule 10 mg PO BID stomach 08/13/23 insulin aspart U-100 100 unit/mL (3 mL) subcutaneous pen (Novolog FlexPen U-100 Insulin aspart) 15 unit subcut TID DIABETES 08/13/23 vitamin B complex-vitamin C-folic acid 0.8 mg tablet (Nephro-Chris) 1 tab PO DAILY supplement 08/13/23 dicyclomine 10 mg capsule 10 mg PO BID #60 caps 08/14/23 lamotrigine 25 mg chewable dispersible tablet 50 mg (2 x 25 mg) PO DAILY #60 ea 08/14/23 pantoprazole 40 mg tablet,delayed release 40 mg PO DAILY #30 tabs 08/14/23 sennosides 8.6 mg-docusate sodium 50 mg tablet (Stool Softener-Stimulant Laxative) 2 tab PO DAILY #0 tabs 08/14/23 sucralfate 1 gram tablet 1 g PO TID@0700,1100,1600 #90 tabs 08/14/23 Hospital Course Operations None Procedures Dialysis Summary of Care Provided Minutes Spent on Discharge: 31 Hospital Course: This 48-year-old white female was seen in the emergency room at [facility] after being sent in from her dialysis center due to elevated blood pressure and an plaints of headache. The emergency room physician was told by the patient that she had weakness in her left arm and drop things with her left hand. She also complained of left lower quadrant abdominal pain. Work-up in the emergency room included a CT of the brain which did not show any abnormality, CT of the abdomen and pelvis showed small bilateral pleural effusions with bibasilar atelectasis, patient's stroke score was 6, patient's blood pressure was elevated, patient's CBC showed a normal white blood cell count and hemoglobin of 10.1, patient's potassium was elevated at 6.1, creatinine was elevated at 5.02 and BUN was 47. Patient's glucose was 272. Patient was placed in observation status on PCU, her blood pressure medications were continued and she underwent dialysis, she also underwent an MRI of the brain which did not show any acute stroke, it also did not show an old stroke. On 08/14/2023, patient was seen and examined: On examination she appeared in good health and spirits, she does not appear to be in any distress. Vital signs as documented. Skin warm and dry and without overt rashes. Neck without JVD, thyroid appears normal, trachea is midline, neck is supple. Lungs clear, normal air movement was noted. Heart exam notable for regular rhythm, normal sounds and absence of murmurs, rubs or gallops. Abdomen unremarkable and without evidence of organomegaly, masses, or abdominal aortic enlargement, bowel sounds are present in all 4 quadrants, no abdominal tenderness was noted. Extremities nonedematous, no cyanosis was noted, no clubbing was noted. Neuro: Cranial nerves II through XII are grossly intact, patient has left foot drop,, sensation to light touch and pinprick is intact Psych: Patient is alert and oriented x3, she does not appear anxious or depressed, she does not appear agitated. On 08/14/2023, patient was seen and examined and felt to be stable for discharge home. Weight / BMI Weight Weight: 135.1 kg Body Mass Index (BMI) 46.7 ABG / Lab / Microbiology Data 08/13/23 11:20 08/14/23 06:22 Laboratory: Laboratory Results - last 24 hr 08/13/23 10:15: WBC Cancelled, Corrected WBC Cancelled, RBC Cancelled, Hgb Cancelled, Hct Cancelled, MCV Cancelled, MCH Cancelled, MCHC Cancelled, RDW Std Deviation Cancelled, RDW Coeff of Juan Cancelled, Plt Count Cancelled, MPV Cancelled, Immature Gran % (Auto) Cancelled, Neut % (Auto) Cancelled, Lymph % (Auto) Cancelled, [place] % (Auto) Cancelled, Eos % (Auto) Cancelled, Baso % (Auto) Cancelled, Absolute Neuts (auto) Cancelled, Absolute Lymphs (auto) Cancelled, Total Counted Cancelled, Neutrophils % (Manual) Cancelled, Band Neutrophils % Cancelled, Lymphocytes % (Manual) Cancelled, Monocytes % (Manual) Cancelled, Eosinophils % (Manual) Cancelled, Basophils % (Manual) Cancelled, Metamyelocytes % Cancelled, Myelocytes % Cancelled, Promyelocytes % Cancelled, Blast Cells % Cancelled, Plasma Cell % (Manual) Cancelled, Other Cells % Cancelled, Nucleated RBC % Cancelled, Nucleated RBCs/100 WBC Cancelled, Differential Comment Cancelled, Diff Path Review Cancelled, Hypersegmented Neuts Cancelled, Atypical Lymphocytes Cancelled, Reactive Lymphocytes Cancelled, Smudge Cells Cancelled, Toxic Granulation Cancelled, Toxic Vacuolation Cancelled, Dohle Bodies Cancelled, Timothy Rods Cancelled, Platelet Estimate Cancelled, Plt Morphology Comment Cancelled, RBC Morphology Cancelled 08/13/23 10:15: RBC Morphology Cancelled, Polychromasia Cancelled, Hypochromasia Cancelled, Poikilocytosis Cancelled, Basophilic Stippling Cancelled, Anisocytosis Cancelled, Microcytosis Cancelled, Macrocytosis Cancelled, Spherocytes Cancelled, Sickle Cells Cancelled, Target Cells Cancelled, Tear Drop Cells Cancelled, Ovalocytes Cancelled, Stomatocytes Cancelled, Gonzalez-Evart Bodies Cancelled, [place] Cells Cancelled, Bite Cells Cancelled, Crenated Cell Cancelled, Acanthocytes (Spur) Cancelled, Rouleaux Cancelled, Schistocytes Cancelled, PT Cancelled, INR Cancelled, APTT Cancelled, Sodium Cancelled, Potassium Cancelled, Chloride Cancelled, Carbon Dioxide Cancelled, Anion Gap Cancelled, BUN Cancelled, Creatinine Cancelled, Estim Creat Clear Calc Cancelled, Est GFR (MDRD) Af Amer Cancelled, Est GFR (MDRD) Non-Af Cancelled, BUN/Creatinine Ratio Cancelled, Glucose Cancelled, Calcium Cancelled, Troponin I High Sens Cancelled 08/13/23 11:20: WBC 5.5, RBC 3.34 L, Hgb 10.1 L, Hct 33.0 L, MCV 98.8, MCH 30.2, MCHC 30.6 L, RDW Std Deviation 48.9 H, RDW Coeff of Juan 13.5, Plt Count 204, MPV 9.7, Immature Gran % (Auto) 0.400, Neut % (Auto) 60.2, Lymph % (Auto) 27.2, [place] % (Auto) 4.4, Eos % (Auto) 6.9 H, Baso % (Auto) 0.9, Absolute Neuts (auto) 3.3, Absolute Lymphs (auto) 1.49, Nucleated RBC % 0, PT 13.3, INR 1.0, APTT 25.8, Sodium 139, Potassium 6.1 H*, Chloride 109 H, Carbon Dioxide 22.0, Anion Gap 8, BUN 47 H, Creatinine 5.02 H, Estim Creat Clear Calc 13.47, Est GFR (MDRD) Af Amer 12 L, Est GFR (MDRD) Non-Af 10 L, BUN/Creatinine Ratio 9.4 L, Glucose 272 H, Calcium 8.5, Troponin I High Sens 20 08/13/23 16:19: POC Glucose 208 H 08/13/23 22:42: POC Glucose 279 H 08/14/23 06:22: Triglycerides 48, Cholesterol 133, LDL Cholesterol 36, VLDL Cholesterol 10, HDL Cholesterol 87 08/14/23 06:50: POC Glucose 238 H Radiography Diagnostic Testing: Radiology Impression Brain CT 08/13/23 09:52 IMPRESSION: Normal unenhanced CT scan of the brain. N.B. : The above Results were Read Back by Vaughn Alves MD to Dr Delroy MD, and understanding confirmed on 08/13/2023 10:39:17 (ET). Electronically Signed: Vaughn Alves MD at 10:40 EST , ADDENDUM: 08/13/23 1047 IMPRESSION: Normal unenhanced CT scan of the brain. N.B. : The above Results were Read Back by Vaughn Alves MD to Dr Delroy MD, and understanding confirmed on 08/13/2023 10:39:17 (ET). Electronically Signed: Vaughn Alves MD at 10:40 EST , Abdomen/Pelvis CT 08/13/23 09:54 IMPRESSION: New small bilateral pleural effusions with bibasilar atelectasis. Status post cholecystectomy. Sigmoid diverticulosis. Small amount of air is seen within the urinary bladder. This most likely secondary to prior catheterization. Electronically Signed: Vaughn Alves MD at 10:59 EST , Chest X-Ray 08/13/23 10:30 IMPRESSION: No acute abnormality is seen. Electronically Signed: Vaughn Alves MD at 11:07 EST , Brain MRI 08/13/23 13:15 IMPRESSION: No intracranial hemorrhage, acute infarct, or space occupying lesion seen on this noncontrast MRI of the brain. Electronically Signed: Lan Piña MD at 17:22 EST , D/C Instructions Discharge Diet: Renal Diet Weight Bearing Status: Full weight bearing Meaningful Use Info Meaningful Use Diagnoses (Choose all that apply): None applicable Discharge Plan Admission Admit Date/Time: 08/13/23 12:54 Primary Reason for Your Visit: NSTEMI Attending Provider: Houston Kramer Primary Care Provider: Maddy Anaya Consulting Providers: José Miguel Staples Instructions Additional Instructions / Restrictions: Follow-up with your primary care physician as scheduled Discharge Orders/Prescriptions Prescriptions: New sennosides-docusate sodium [Stool Softener-Stimulant Laxat] 8.6-50 mg Tablet 2 tab PO DAILY Qty: 0 0RF lamotrigine 25 mg Tablet, Chewable Dispersible 50 mg PO DAILY Qty: 60 0RF pantoprazole 40 mg Tablet,Delayed Release (Dr/Ec) 40 mg PO DAILY Qty: 30 0RF dicyclomine 10 mg Capsule 10 mg PO BID Qty: 60 0RF sucralfate 1 gram Tablet 1 g PO TID@0700,1100,1600 Qty: 90 0RF Continued aspirin 81 mg tablet,delayed release (DR/EC) 81 mg PO DAILY cetirizine 10 mg tablet 10 mg PO DAILY pantoprazole 40 mg tablet,delayed release (DR/EC) 40 mg PO DAILY bumetanide 1 mg tablet 1 mg PO DAILY losartan 50 mg tablet 75 mg PO DAILY tamsulosin 0.4 mg capsule 0.4 mg PO QHS sucralfate 100 mg/mL suspension 10 ml PO TID promethazine 25 mg tablet 25 mg PO Q6H PRN (Reason: NAUSEA/VOMITING) atorvastatin 40 mg Tablet 40 mg PO QHS Qty: 30 1RF albuterol sulfate 2.5 mg /3 mL (0.083 %) Solution For Nebulization 2.5 mg INHALATION Q4H PRN (Reason: SOB) Velphoro 500 mg Tablet,Chewable 500 mg PO TID cyclobenzaprine 10 mg Tablet 10 mg PO TID PRN PRN (Reason: Breakthrough Pain (>4/10)) 7 Days Qty: 21 0RF gabapentin 100 mg capsule 300 mg PO QHS Qty: 21 0RF hydrocodone-acetaminophen 7.5-325 mg tablet 1 tab PO Q6H PRN (Reason: pain) 3 Days Qty: 12 0RF hydrocodone-acetaminophen 7.5-325 mg tablet 1 tab PO Q6H PRN (Reason: pain) 3 Days Qty: 12 0RF Nephro-Chris 0.8 mg tablet 1 tab PO DAILY dicyclomine 10 mg capsule 10 mg PO BID acetaminophen 500 mg Tablet 1,000 mg PO Q4H PRN (Reason: pain) insulin aspart U-100 [Novolog FlexPen U-100 Insulin] 100 unit/mL (3 mL) insulin pen 15 unit subcut TID (DME) FreeStyle Gissell 2 Sensor Kit See Rx Instructions .Route Qty: 6 1RF Rx Instructions: 1 sensor q 14 days insulin detemir U-100 100 unit/mL (3 mL) insulin pen 26 unit subcut QHS Qty: 30 0RF (DME) pen needle, diabetic [BD Ultra-Fine Laura Pen Needle] 32 gauge x 5/32 needle See Rx Instructions .ROUTE .MEDSUPPLY Qty: 400 3RF Rx Instructions: 4 times daily Discontinued lamotrigine 50 mg tablet,disintegrating 50 mg PO DAILY Referrals / Follow Up: Maddy Anaya MD [Primary Care Provider] - Disposition Disposition (needs filled in before D/C Order can be placed): Home, Self Care Charges/Coding Visit Charges Inpatient E&M: 54190 Disch Hosp >30min
[2023-08-14 09:29] VITALS: BP 180/62; PULSE 71; RESP 18; TEMP 36.5; O2SAT 94
[2023-08-14 09:29] LABS: Anion Gap 6 (5-15); BUN 44 mg/dL (7-18); BUN/Creat Ratio 9.5 RATIO (10-20); Calcium,Total 8.3 mg/dL (8.5-10.1); Chloride 110 mmol/L (98-107); Creatinine, Serum 4.61 mg/dL (0.55-1.02); EST Glomerular Filtration Rate 11 mL/min (>60); Est Glom Filt Rate - Afr Amer 13 mL/min (>60); Estimated Creatinine Clearance 14.67 ml/min; Glucose 270 mg/dL (74-106); Potassium 5.5 mmol/L (3.5-5.1); Sodium Level 141 mmol/L (136-145)
[2023-08-14] MEDS: HYDROcodone Bitartrate/Apap 5/325 Tablet PO (09:40)
[2023-08-14] MEDS: Acetaminophen/Butalbital/Caffe 1 Tablet PO (09:40)
[2023-08-14] MEDS: Pantoprazole Sodium 40 MG Tablet PO (09:41)
[2023-08-14] MEDS: Losartan Potassium 50 MG Tablet 75 MG PO (09:41)
[2023-08-14] MEDS: Aspirin E.C. 81 MG Tablet PO (09:41)
[2023-08-14] MEDS: lamoTRIgine 25 MG Tablet 50 MG PO (09:41)
[2023-08-14] MEDS: Senna/Docusate Sodium 1 Tablet 2 TABLET PO (09:41)
[2023-08-14] MEDS: Dicyclomine 10 MG Capsule PO (09:41)
[2023-08-14] MEDS: amLODIPine 5 MG Tablet PO (11:10)
[2023-08-14] MEDS: Losartan Potassium 25 MG Tablet PO (11:10)
== END 2023-08-14 11:27 | disposition home or self-care (01) ==
LOC: ED 12:22 → PCU 12:39
PROVIDERS: Admitting Provider Internal Medicine; Emergency Provider Emergency Medicine; PCP Family Medicine; Visit Provider Internal Medicine
DX: R51.9 Headache, unspecified (principal); I13.2 Hypertensive heart and chronic kidney disease with heart failure and with stage 5 chronic kidney disease, or end stage renal disease; Z99.2 Dependence on renal dialysis; I50.9 Heart failure, unspecified; E11.22 Type 2 diabetes mellitus with diabetic chronic kidney disease; N18.6 End stage renal disease; E66.01 Morbid (severe) obesity due to excess calories; Z68.42 Body mass index [BMI] 45.0-49.9, adult; Z79.4 Long term (current) use of insulin; Z87.891 Personal history of nicotine dependence; I16.0 Hypertensive urgency; R29.898 Other symptoms and signs involving the musculoskeletal system; Z79.82 Long term (current) use of aspirin; E78.00 Pure hypercholesterolemia, unspecified; Z79.899 Other long term (current) drug therapy; E87.5 Hyperkalemia
CPT/HCPCS: 36415; 70450; 70551; 71045; 74176; 80048; 80061; 82962; 84484; 85025; 85610; 85730; 90937; 93005; 94762; 96372; 96374; 96375; 99221; 99285; J7030; A4216; G0257; G0378

== ENCOUNTER 2023-08-21 12:18 | Emergency (ER) | payer MEDICARE, MEDICAID, SELFPAY ==
[2023-08-21 12:19] VITALS: BP 155/86; PULSE 73; RESP 7; TEMP 36.5; O2SAT 98; BMI 46.4
--- NOTE | 2023-08-21 12:37 | CT_ITS ---
STUDY: CT ABDOMEN AND PELVIS WITH CONTRAST REASON FOR EXAM: Female, 48 years old. LLQ abd pain RADIATION DOSAGE (If Supplied By Facility): CTDIvol = ( 24.17 ) mGy, DLP = ( 1446.35 ) mGycm TECHNIQUE: IV 75mL Isovue-370 was administered. Transaxial images were obtained from the dome of the diaphragm to the symphysis pubis. Multiplanar coronal and sagittal images were reformatted. Individualized Dose Optimization Techniques Were Used For This CT. COMPARISON: Prior study dated: 08/13/2023. FINDINGS: Visualized lung bases demonstrate small left pleural effusion. Mild left lower lobe infiltrate. The visualized portions of the heart are within normal limits. 1.7 cm low-density lesion in the inferior right lobe of the liver difficult to characterize and may represent hemangioma. Another smaller lesion in the lateral aspect of right lobe measuring about 9 mm. There are surgical clips in the gallbladder fossa consistent with a prior cholecystectomy. Normal spleen. Normal pancreas. Normal bilateral adrenal glands. The kidneys are essentially unremarkable. No evidence of hydronephrosis. Normal visualized stomach. Normal in caliber small bowel loops. No evidence of acute diverticulitis. Small subcentimeter retroperitoneal nodes. No evidence of adenopathy. Normal abdominal aorta. No retroperitoneal adenopathy. Small pocket of air is again seen in the anterior aspect of the bladder. Thickening of the bladder wall could be due to underdistention. No pelvic mass. There is a small umbilical hernia containing fat. Normal osseous structures. CT/Abdomen/Pelvis W IV Cont ONLY IMPRESSION: 1. No focal acute inflammatory process. 2. Thickening of the bladder wall with small pocket of air within the bladder could be due to recent catheterization. Cystitis cannot be excluded. 3. Persistent small left pleural effusion and left basilar infiltrate/atelectasis. 4. Small indeterminate liver lesions difficult to accurately characterize at this time may represent hemangiomas. 5. Status post cholecystectomy. Electronically Signed: Trevor Botello MD at 14:01 EST ,
--- NOTE | 2023-08-21 12:39 | ED.VIS.GI ---
HPI HPI - GI History of Present Illness Chief Complaint: Abd Pain Detail of Chief Complaint: Lower quadrant abdominal pain today. Informant: patient Abdominal Pain/Flank Pain Onset: Today Timing: Continuous Location: LLQ Current Severity: Mild Maximum Severity: Moderate Worsened by: Nothing Relieved by: Nothing Nausea/Vomiting/Emesis GI Symptom: Positive for Nausea, Vomiting and - (X1 this morning only.) Onset: Today Severity: Mild Diarrhea/Melena/Hematochezia GI Symptom: Negative for Diarrhea, Melena or Hematochezia Associated Symptoms Associated Symptoms: Negative for Dysuria, Frequency, Hematuria or Urgency Narrative Narrative: 48-year-old female history of end-stage renal disease with dialysis. Diabetes and prior cholecystectomy. States that she has left lower quadrant abdominal pain that began around 3 AM this morning. Nausea and vomiting x1 around 7 AM. No diarrhea or constipation. She still makes urine denies any dysuria. She did have dialysis today. Prior similar symptoms: No Recent Illness/Hospitalization: Yes PFSH PFSH Medical History Anxiety Arthritis Asthma Fleming esophagus Blackout Bruising delivery delivered Chronic kidney disease Depression Dietary restriction Difficulty swallowing Disc disorder Easy bruising ESRD needing dialysis FH: cholecystectomy Former smoker Gastric reflux High cholesterol History of CHF (congestive heart failure) History of Clostridium difficile infection History of echocardiogram History of edema History of stress test History of ulceration Hypertension Hypertension Injury of head and neck Insulin dependent diabetes mellitus Left foot amputee (~2019) Left hand pain Loss of hearing Low iron Migraine headache On home oxygen therapy Seasonal allergies Shortness of breath on exertion Stroke (~2021) Syncope Thyroid disease Transitioned from acute care to home health care Uses wheelchair Vision impairment Walker as ambulation aid Wears glasses Home Medications aspirin 81 mg tablet,delayed release 81 mg PO DAILY HEART HEALTH 06/23/22 [History Last Taken 01/19/23] bumetanide 1 mg tablet 1 mg PO DAILY FLUID 06/23/22 [History Last Taken 01/19/23] cetirizine 10 mg tablet 10 mg PO DAILY ALLERGIES 06/23/22 [History Last Taken 01/19/23] losartan 50 mg tablet 75 mg PO DAILY BLOOD PRESSURE 06/23/22 [History Last Taken 01/20/23] pantoprazole 40 mg tablet,delayed release 40 mg PO DAILY ACID REFLUX 06/23/22 [History Last Taken 01/20/23] tamsulosin 0.4 mg capsule 0.4 mg PO QHS BLADDER 06/23/22 [History Last Taken 01/19/23] promethazine 25 mg tablet 25 mg PO Q6H PRN NAUSEA/VOMITING 09/01/22 [History Last Taken Unknown] atorvastatin 40 mg tablet 40 mg PO QHS #30 tabs 09/04/22 [Rx Last Taken 01/19/23] sucralfate 100 mg/mL oral suspension 10 ml PO TID 11/12/22 [History Last Taken 01/19/23] albuterol sulfate 2.5 mg/3 mL (0.083 %) solution for nebulization 2.5 mg inhalation Q4H PRN SOB 01/07/23 [History Last Taken 01/19/23] sucroferric oxyhydroxide 500 mg chewable tablet (Velphoro) 500 mg PO TID 01/07/23 [History Last Taken 01/19/23] cyclobenzaprine 10 mg tablet 10 mg PO TID PRN PRN Breakthrough Pain (>4/10) 7 days #21 tabs 01/22/23 [Rx Last Taken Unknown] gabapentin 100 mg capsule 300 mg (3 x 100 mg) PO QHS NERVE PAIN #21 caps 01/22/23 [Rx Last Taken Unknown] flash glucose sensor (FreeStyle Gissell 2 Sensor kit) #6 ea 03/16/23 [Rx Last Taken Unknown] hydrocodone 7.5 mg-acetaminophen 325 mg tablet 1 tab PO Q6H PRN pain 3 days #12 tabs 04/06/23 [Rx Last Taken Unknown] hydrocodone 7.5 mg-acetaminophen 325 mg tablet 1 tab PO Q6H PRN pain 3 days #12 tabs 04/12/23 [Rx Last Taken Unknown] insulin detemir U-100 100 unit/mL (3 mL) subcutaneous pen 26 unit (0.26 mL) subcut QHS DIABETES #30 mL 08/04/23 [Rx Last Taken Unknown] pen needle, diabetic 32 gauge x (BD Ultra-Fine Laura Pen Needle) #400 ea 08/04/23 [Rx Last Taken Unknown] acetaminophen 500 mg tablet 1,000 mg PO Q4H PRN pain 08/13/23 [History Last Taken Unknown] dicyclomine 10 mg capsule 10 mg PO BID stomach 08/13/23 [History Last Taken Unknown] insulin aspart U-100 100 unit/mL (3 mL) subcutaneous pen (Novolog FlexPen U-100 Insulin aspart) 15 unit subcut TID DIABETES 08/13/23 [History Last Taken Unknown] vitamin B complex-vitamin C-folic acid 0.8 mg tablet (Nephro-Chris) 1 tab PO DAILY supplement 08/13/23 [History Last Taken Unknown] dicyclomine 10 mg capsule 10 mg PO BID #60 caps 08/14/23 [Rx Last Taken Unknown] lamotrigine 25 mg chewable dispersible tablet 50 mg (2 x 25 mg) PO DAILY #60 ea 08/14/23 [Rx Last Taken Unknown] pantoprazole 40 mg tablet,delayed release 40 mg PO DAILY #30 tabs 08/14/23 [Rx Last Taken Unknown] sennosides 8.6 mg-docusate sodium 50 mg tablet (Stool Softener-Stimulant Laxative) 2 tab PO DAILY #0 tabs 08/14/23 [Rx Last Taken Unknown] sucralfate 1 gram tablet 1 g PO TID@0700,1100,1600 #90 tabs 08/14/23 [Rx Last Taken Unknown] cephalexin 500 mg capsule 500 mg PO Q6 7 days #28 CAPSULES 08/21/23 [Rx Last Taken Unknown] Allergy/AdvReac Type Severity Reaction Status Date / Time lidocaine Allergy Severe Rash Verified 08/21/23 12:26 bacitracin Allergy Intermediate blisters Verified 08/21/23 12:26 hydrogen peroxide Allergy Intermediate blisters Verified 08/21/23 12:26 isopropyl alcohol Allergy Intermediate blisters Verified 08/21/23 12:26 Sulfa (Sulfonamide Allergy Intermediate Rash Verified 08/21/23 12:26 Antibiotics) Bleach (Sodium Hypochlorite) Allergy Hives Verified 08/21/23 12:26 insulin lispro Allergy HIVES, Verified 08/21/23 12:26 [From Humalog U-100 Insulin] REDNESS Latex, Natural Rubber Allergy Rash Verified 08/21/23 12:26 ondansetron [From Zofran] AdvReac Severe Constipatio Verified 08/21/23 12:26 n metformin AdvReac Vomiting Verified 08/21/23 12:26 neomycin AdvReac HIVES, Verified 08/21/23 12:26 [From Neosporin REDNESS ([id number])] polymyxin B AdvReac HIVES, Verified 08/21/23 12:26 [From Neosporin REDNESS ([id number])] Family History Other Arthritis Asthma CVA (cerebral vascular accident) Diabetes Heart disease High cholesterol Hypertension Kidney disease Osteoporosis Seizures Surgical History H/O left knee surgery H/O right knee surgery History of arteriovenostomy for renal dialysis History of bladder surgery History of History of cholecystectomy History of foot surgery History of infusaport central venous catheter removal History of liver biopsy History of lumpectomy of right breast History of shoulder surgery History of thoracentesis Hx of tonsillectomy Social History household members: family housing: house Smoking Status: Former smoker alcohol intake: never ROS ROS ED ROS Narrative Left lower quadrant abdominal pain. Nausea vomiting x1. Review of Systems ROS Unobtainable: Denies due to encephalopathy Constitutional Constitutional ED: Denies chills or fever(s) ENT ENT ED: Denies ear pain Cardiovascular Cardiovascular: Denies chest pain Respiratory/Chest Respiratory/Chest: Denies cough or dyspnea Gastrointestinal Gastrointestinal: Reports abdominal pain, nausea and vomiting; Denies constipation, diarrhea or melena Genitourinary Genitourinary ED: Denies dysuria or hematuria Musculoskeletal Musculoskeletal: Denies arthralgias or back pain Integumentary Denies abscess or Abrasions Neurologic Neurologic: Denies headache(s) Psychiatric Psychiatric: Denies anxiety Endocrine Endocrinology: Denies polydipsia Hematologic/Lymphatic Hematologic/Lymphatic: Denies easy bleeding Allergic/Immunologic Allergic/Immunologic ED: Denies mouth swelling or tongue swelling EXAM Physical Exam Narrative Exam Narrative: 48-year-old female. Vital signs stable afebrile. No acute distress. H EENT exam unremarkable. Neck nontender. Lungs clear to auscultation. Heart regular rhythm rate about 70 no murmur. Abdomen soft. Nondistended. Normal bowel sounds. No peritoneal signs. Tender left lower quadrant only. Right upper and right lower quadrant unremarkable. No obvious hernia or mass. No signs of trauma. No signs of obstruction. Moving all 4 extremities. Brace on her left lower extremity. Normal animal biologist strength. Neurologically she is awake and alert. Answering questions and following commands. Const Vital Signs: 08/21/23 12:19 Temperature 97.7 F L Temperature Source Oral Pulse Rate 73 Respiratory Rate 7 L Blood Pressure 155/86 H Blood Pressure Mean 109 Pulse Ox 98 Oxygen Delivery Method Room Air Positive well nourished, well developed and obese; Negative for cachectic, contractures or unkempt General Appearance ED: well developed and NAD; Negative for unkempt, cachectic, contractures or pallor Nutritional Appearance: obese; Negative for cachectic HEENT Reports moist mucous membranes normocephalic and atraumatic; Negative for trauma or tenderness Eyes PERRL and EOMs intact bilaterally General Eye ED: Negative for pale conjunctiva or scleral icterus Neck no lymphadenopathy, supple and no JVD General: Negative for tenderness Carotids: Negative for other Lymph Lymphatic: Negative for other Resp normal respiratory effort and clear to auscultation bilaterally Effort and Inspection: Negative for respiratory distress Auscultation: Negative for rales, rhonchi or wheezes Cardio regular rate, regular rhythm, S1 normal heart sound, S2 normal heart sound and no murmurs Rate: Negative for bradycardia or tachycardic Rhythm: Negative for abnormal rhythm GI non-distended and no masses; Negative for non-tender GI Narrative: Tender left lower quadrant only. No peritoneal signs. No obstruction. Auscultation: normoactive bowel sounds Palpation: soft and tender; Negative for guarding, rigid or rebound tenderness present Back/Spine no CVA tenderness Extremity Extremity Narrative: Brace on her left lower extremity. General Extremety ED: Negative for edema or tenderness General Extremity: Negative for edema Neuro CN's II-XII intact bilaterally and moves all extremities Sensorium / Orientation: alert, oriented to person, oriented to place and oriented to time; Negative for orientation impaired, confused, lethargic or stuporous Motor Exam: strength abnormal; Negative for strength 5/5 throughout Psych mental status grossly normal and thought process normal Appearance: Negative for unkempt Attitude: No agitated Mood & Affect: Negative for depressed, anxious or tearful Skin no wounds General Skin Exam: Negative for jaundice or pallor Lesions: no lesions Rashes: no rashes Trauma: Negative for abrasion MDM MDM MDM Narrative Medical decision making narrative: 48-year-old female history of end-stage renal disease on dialysis, prior stroke and prior cholecystectomy. Complaining of left lower quadrant abdominal pain today. Differential would include diverticulitis versus UTI versus other etiologies. CAT scan labs pending. Treated with morphine for pain and Reglan for nausea she reportedly has a reaction to Zofran. Repeat exam patient doing well at 2:30 PM. Labs base sickly unremarkable possible UTI. CAT scan shows not diverticulitis but air in her bladder and inflammation of bladder wall again possibly secondary to UTI. Urine culture will be sent. She was started on Keflex 4 times a day for 7 days. All has been discussed with patient. She is comfortable to plan. History & Record Review Discussion w/independent historian: Patient Additional record(s) reviewed:: Prior inpatient record, Prior outpatient record, Prior ED visit and Prior labs Lab Data Attestation: I reviewed the patient's lab results. Lab results narrative: CBC shows a white count of 5.6. H&H of 11 and 34. Platelets 277. Electrolytes show a gap of 8. BUN of 11 creatinine 2.21. She has a history of end-stage renal disease and was just dialyzed today. Glucose 173. Urine sent shows no nitrites. 5-10 white cells. 1+ bacteria. Labs: Laboratory Results - last 24 hr 08/21/23 12:52 WBC 5.6 RBC 3.68 L Hgb 11.1 L Hct 34.4 L MCV 93.5 MCH 30.2 MCHC 32.3 RDW Std Deviation 45.3 H RDW Coeff of Juan 13.2 Plt Count 277 MPV 9.5 Immature Gran % (Auto) 0.700 Neut % (Auto) 63.0 Lymph % (Auto) 23.2 [place] % (Auto) 6.3 Eos % (Auto) 5.4 H Baso % (Auto) 1.4 H Absolute Neuts (auto) 3.5 Absolute Lymphs (auto) 1.29 Nucleated RBC % 0 Sodium 137 Potassium 4.3 Chloride 104 Carbon Dioxide 25.0 Anion Gap 8 BUN 11 Creatinine 2.21 H Estim Creat Clear Calc 30.60 Est GFR (MDRD) Af Amer 31 L Est GFR (MDRD) Non-Af 25 L BUN/Creatinine Ratio 5.0 L Glucose 173 H Calcium 9.4 Urine Color Yellow Urine Clarity Clear Urine pH 7.0 Ur Specific [place] 1.010 Urine Protein 500 H Urine Glucose (UA) 250 H Urine Ketones 5 H Urine Occult Blood 50 H Urine Nitrite Negative Urine Bilirubin Negative Urine Urobilinogen Normal Ur Leukocyte Esterase 25 H Urine RBC 0-5 SEEN Urine WBC 5-10 SEEN Ur Squamous Epith Cells 0-5 SEEN Amorphous Sediment 2+ Urine Bacteria 1+ Urine Mucus 0 SEEN Urine Yeast RARE Urine Test Negative Radiography Diagnostic Testing: Clinical Impression(s) from Imaging Studies Abdomen/Pelvis CT 08/21/23 12:37 IMPRESSION: 1. No focal acute inflammatory process. 2. Thickening of the bladder wall with small pocket of air within the bladder could be due to recent catheterization. Cystitis cannot be excluded. 3. Persistent small left pleural effusion and left basilar infiltrate/atelectasis. 4. Small indeterminate liver lesions difficult to accurately characterize at this time may represent hemangiomas. 5. Status post cholecystectomy. Electronically Signed: Trevor Botello MD at 14:01 EST , Discharge Plan Triage Chief Complaint: Abd Pain ED Provider: Gee Martinez Dx/Rx/DC Orders Clinical Impression: Urinary tract infection, End stage chronic kidney disease, History of diabetes mellitus, Abdominal pain Instructions: ED Cystitis Female Adult Prescriptions: New cephalexin 500 mg capsule 500 mg PO Q6 7 Days Qty: 28 0RF No Action aspirin 81 mg tablet,delayed release (DR/EC) 81 mg PO DAILY cetirizine 10 mg tablet 10 mg PO DAILY pantoprazole 40 mg tablet,delayed release (DR/EC) 40 mg PO DAILY bumetanide 1 mg tablet 1 mg PO DAILY losartan 50 mg tablet 75 mg PO DAILY tamsulosin 0.4 mg capsule 0.4 mg PO QHS sucralfate 100 mg/mL suspension 10 ml PO TID promethazine 25 mg tablet 25 mg PO Q6H PRN (Reason: NAUSEA/VOMITING) atorvastatin 40 mg Tablet 40 mg PO QHS Qty: 30 1RF albuterol sulfate 2.5 mg /3 mL (0.083 %) Solution For Nebulization 2.5 mg INHALATION Q4H PRN (Reason: SOB) Velphoro 500 mg Tablet,Chewable 500 mg PO TID cyclobenzaprine 10 mg Tablet 10 mg PO TID PRN PRN (Reason: Breakthrough Pain (>4/10)) 7 Days Qty: 21 0RF gabapentin 100 mg capsule 300 mg PO QHS Qty: 21 0RF hydrocodone-acetaminophen 7.5-325 mg tablet 1 tab PO Q6H PRN (Reason: pain) 3 Days Qty: 12 0RF hydrocodone-acetaminophen 7.5-325 mg tablet 1 tab PO Q6H PRN (Reason: pain) 3 Days Qty: 12 0RF Nephro-Chris 0.8 mg tablet 1 tab PO DAILY dicyclomine 10 mg capsule 10 mg PO BID acetaminophen 500 mg Tablet 1,000 mg PO Q4H PRN (Reason: pain) insulin aspart U-100 [Novolog FlexPen U-100 Insulin] 100 unit/mL (3 mL) insulin pen 15 unit subcut TID sennosides-docusate sodium [Stool Softener-Stimulant Laxat] 8.6-50 mg Tablet 2 tab PO DAILY Qty: 0 0RF lamotrigine 25 mg Tablet, Chewable Dispersible 50 mg PO DAILY Qty: 60 0RF pantoprazole 40 mg Tablet,Delayed Release (Dr/Ec) 40 mg PO DAILY Qty: 30 0RF dicyclomine 10 mg Capsule 10 mg PO BID Qty: 60 0RF sucralfate 1 gram Tablet 1 g PO TID@0700,1100,1600 Qty: 90 0RF (DME) FreeStyle Gissell 2 Sensor Kit See Rx Instructions .Route Qty: 6 1RF Rx Instructions: 1 sensor q 14 days insulin detemir U-100 100 unit/mL (3 mL) insulin pen 26 unit subcut QHS Qty: 30 0RF (DME) pen needle, diabetic [BD Ultra-Fine Laura Pen Needle] 32 gauge x 5/32 needle See Rx Instructions .ROUTE .MEDSUPPLY Qty: 400 3RF Rx Instructions: 4 times daily Primary Care Provider: Sarah Peters Referrals: Sarah Peters, [Primary Care Provider] - 1 Week if not improving Activity Restrictions/Additional Instructions: Suspected urinary tract infection. A urine culture was sent. Will be started on antibiotic Keflex 1 pill 4 times a day for 1 week. With your doctor if not improving. Motrin and Tylenol for pain. Disposition Disposition: Home, Self Care
[2023-08-21] MEDS: morphine 8 MG/ML Syringe 6 MG IV (13:00)
[2023-08-21 13:01] LABS: Mucous, Urine 0 SEEN /hpf (<or=2+)
[2023-08-21 13:03] LABS: Absolute Lymphocyte Count 1.29 X10^3/uL (0.83-4.51); Absolute Neutrophil Count 3.5 X10^3/uL (2.0-7.7); Basophil# 0.08 X10^3/uL; Basophil% 1.4 % (0-1); Eosinophils% 5.4 % (0-5); Hematocrit 34.4 % (37-47); Hemoglobin 11.1 g/dL (12.0-15.0); Lymphocyte # 1.29 X10^3/ul (0.83-4.51); Lymphocyte % 23.2 % (19-41); Mean Corp Hgb Conc 32.3 g/dL (32-36); Mean Corpuscular Hgb 30.2 pg (27.0-32.0); Mean Corpuscular Volume 93.5 fL (81-99); Mean Platelet Vol. 9.5 fl (6.2-12.0); Monocyte# 0.35 X10^3/uL; Monocyte% 6.3 % (0-10); NRBC Flagged by Analyzer 0 % (0-5); Platelet Count 277 K/mm3 (150-450); RBC Distribution Width CV 13.2 % (11.6-14.6); RBC Distribution Width SD 45.3 fl (35.1-43.9); Red Blood Count 3.68 M/mm3 (4.2-5.4); White Blood Count 5.6 K/mm3 (4.4-11.0)
[2023-08-21 13:05] LABS: Color, Urine Yellow (Yellow); Glucose, Dipstick 250 mg/dl (Normal); Ketone-Dipstick 5 mg/dl (Negative); Leukocyte Esterase-Dipstick 25 /ul (Negative); Nitrite-Dipstick Negative (Negative); Occult Blood-Urine 50 /ul (Negative); Protein-Dipstick 500 mg/dl (Negative); Urine Bilirubin Dipstick Negative (Negative); Urine Clarity Clear (Clear); Urine Urobilinogen Normal (Normal)
[2023-08-21 13:15] LABS: Amorphous Sediment 2+; Bacteria 1+ /hpf (None Seen); Red Blood Cells-Urine 0-5 SEEN /hpf (0-5); Squamous Epithelial Cells - UA 0-5 SEEN /hpf (5-10); White Blood Cells 5-10 SEEN /hpf (0-5); Yeast-Urine RARE /hpf (None Seen)
[2023-08-21 13:19] LABS: Anion Gap 8 (5-15); BUN 11 mg/dL (7-18); Calcium,Total 9.4 mg/dL (8.5-10.1); Chloride 104 mmol/L (98-107); Creatinine, Serum 2.21 mg/dL (0.55-1.02); EST Glomerular Filtration Rate 25 mL/min (>60); Est Glom Filt Rate - Afr Amer 31 mL/min (>60); Glucose 173 mg/dL (74-106); Potassium 4.3 mmol/L (3.5-5.1); Sodium Level 137 mmol/L (136-145)
[2023-08-21 13:20] LABS: Internal QC Validated? YES +Cl - CLEAR BKGD; Pregnancy, Urine Negative Negative; Record Kit Lot#,Urine Preg 667200
[2023-08-21] MEDS: Cephalexin 250 MG Capsule 500 MG PO (14:41)
[2023-08-21 14:42] VITALS: BP 146/67; PULSE 82; RESP 16; O2SAT 96
--- NOTE | 2023-08-21 15:04 | ED.RN ---
THIS RN DE-ACCESSED PT DIALYSIS CATHETER. NEEDLES REMOVED FROM ARM, PRESSURE APPLIED TO BOTH SITES UNTIL BLEEDING STOPPED. COVERED WITH GAUZE AND PAPER TAPE.
== END 2023-08-21 15:05 | disposition home or self-care (01) ==
PROVIDERS: Emergency Provider Emergency Medicine; PCP Family Medicine; Visit Provider Emergency Medicine
DX: N39.0 Urinary tract infection, site not specified (principal); I13.2 Hypertensive heart and chronic kidney disease with heart failure and with stage 5 chronic kidney disease, or end stage renal disease; Z99.2 Dependence on renal dialysis; I50.9 Heart failure, unspecified; E11.22 Type 2 diabetes mellitus with diabetic chronic kidney disease; N18.6 End stage renal disease; Z79.4 Long term (current) use of insulin; Z87.891 Personal history of nicotine dependence; E78.00 Pure hypercholesterolemia, unspecified; Z90.49 Acquired absence of other specified parts of digestive tract; R10.32 Left lower quadrant pain; Z79.899 Other long term (current) drug therapy; Z79.82 Long term (current) use of aspirin; R60.9 Edema, unspecified; K21.9 Gastro-esophageal reflux disease without esophagitis; Z86.73 Personal history of transient ischemic attack (TIA), and cerebral infarction without residual deficits
CPT/HCPCS: 74177; 80048; 81001; 81025; 85025; 87086; 96374; 96375; 99285; P9612; Q9967; A4216

== ENCOUNTER 2023-09-06 08:18 | Emergency (ER) | payer MEDICARE, MEDICAID, SELFPAY ==
[2023-09-06] VITALS (8 sets, daily range): BP systolic 186–208; BP diastolic 77–89; PULSE 72–76; RESP 16–28; TEMP 37.4–37.5; O2SAT 93–97; BMI 44.9
--- NOTE | 2023-09-06 08:34 | EDS_ITS ---
HPI History of Present Illness Chief Complaint: General Illness Detail of Chief Complaint: Infectious respiratory symptoms Informant: patient and family Onset/Context/Timing Onset: Days (Wednesday, September 03) Context: Sudden Onset Timing: Continuous and Waxes and wanes Quality: Headache, subjective fever, body aches Location: Generalized Current Severity: Moderate Maximum Severity: Severe Worsened by: Coughing Relieved by: Nothing Associated Symptoms Associated Symptoms: Per HPI narrative Narrative Narrative: Patient is a 48-year-old woman on hemodialysis Wednesday, Wednesday. Ultrafiltration was discontinued on Wednesday because she was not doing well. She did not go to dialysis today because she feels ill. She does have history of CVA, type 2 diabetes, hypertension. She still makes urine. She complains of headache. She denies photophobia or sonophobia. She does report congestion and rhinorrhea. She also reports sore throat. Her cough is productive of thick green sputum. She denies chest discomfort. She denies abdominal pain. She does endorse nausea, vomiting diarrhea. She has vomited every day since onset of illness. Diarrhea started today. She did not notice any blood or mucus in her stool. She has not been on antibiotics recently. She states a relative was diagnosed with upper respiratory tract infection . She reports increased swelling since she was not dialyzed/ultrafiltrated on Wednesday and has not gone to dialysis today. She does have orthopnea. She denies PND. Prior similar symptoms: Yes Recent Illness/Hospitalization: No [facility] LICENSE OF [facility] Medical History (Updated 09/06/23 @ 13:[address] Rafael Cleaning MD) Anxiety Arthritis Asthma Fleming esophagus Blackout Bruising delivery delivered Chronic kidney disease Depression Dietary restriction Difficulty swallowing Disc disorder Easy bruising ESRD needing dialysis FH: cholecystectomy Fibromyalgia, primary Former smoker Gastric reflux High cholesterol History of CHF (congestive heart failure) History of Clostridium difficile infection History of echocardiogram History of edema History of stress test History of ulceration Hypertension Hypertension Hypertensive urgency Injury of head and neck Insulin dependent diabetes mellitus Left foot amputee (~2019) Left hand pain Loss of hearing Low iron LUE weakness Migraine headache On home oxygen therapy Seasonal allergies Shortness of breath on exertion Stroke (~2021) Syncope Thyroid disease Transitioned from acute care to home health care Uses wheelchair Vision impairment Walker as ambulation aid Wears glasses Home Medications aspirin 81 mg tablet,delayed release 81 mg PO DAILY [facility] 06/23/22 [History Last Taken 09/05/23] bumetanide 1 mg tablet 1 mg PO DAILY FLUID 06/23/22 [History Last Taken 09/05/23] cetirizine 10 mg tablet 10 mg PO DAILY ALLERGIES 06/23/22 [History Last Taken 09/05/23] losartan 50 mg tablet 100 mg PO DAILY BLOOD PRESSURE 06/23/22 [History Last Taken 09/05/23] pantoprazole 40 mg tablet,delayed release 40 mg PO DAILY ACID REFLUX 06/23/22 [History Last Taken 09/05/23] tamsulosin 0.4 mg capsule 0.4 mg PO QHS BLADDER 06/23/22 [History Last Taken 09/05/23] promethazine 25 mg tablet 25 mg PO Q6H PRN NAUSEA/VOMITING 09/01/22 [History Last Taken Unknown] atorvastatin 40 mg tablet 40 mg PO QHS #30 tabs 09/04/22 [Rx Last Taken 09/05/23] albuterol sulfate 2.5 mg/3 mL (0.083 %) solution for nebulization 2.5 mg inhalation Q4H PRN SOB 01/07/23 [History Last Taken 01/19/23] sucroferric oxyhydroxide 500 mg chewable tablet (Velphoro) 500 mg PO TID 01/07/23 [History Last Taken 09/05/23] cyclobenzaprine 10 mg tablet 10 mg PO TID PRN PRN Breakthrough Pain (>4/10) 7 days #21 tabs 01/22/23 [Rx Last Taken 09/05/23] gabapentin 100 mg capsule 300 mg (3 x 100 mg) PO QHS NERVE PAIN #21 caps [Rx Last Taken 09/05/23] flash glucose sensor (FreeStyle Gissell 2 Sensor kit) #6 ea 03/16/23 [Rx Last Taken Unknown] hydrocodone 7.5 mg-acetaminophen 325 mg tablet 1 tab PO Q6H PRN pain 3 days #12 tabs 04/06/23 [Rx Last Taken 09/05/23] hydrocodone 7.5 mg-acetaminophen 325 mg tablet 1 tab PO Q6H PRN pain 3 days #12 tabs 04/12/23 [Rx Last Taken Unknown] insulin detemir U-100 100 unit/mL (3 mL) subcutaneous pen 26 unit (0.26 mL) subcut QHS DIABETES #30 mL 08/04/23 [Rx Last Taken 09/03/23] pen needle, diabetic 32 gauge x 32 (BD Ultra-Fine Laura Pen Needle) #400 ea 08/04/23 [Rx Last Taken Unknown] acetaminophen 500 mg tablet 1,000 mg PO Q6H PRN pain 08/13/23 [History Last Taken Unknown] dicyclomine 10 mg capsule 10 mg PO BID stomach 08/13/23 [History Last Taken Unknown] insulin aspart U-100 100 unit/mL (3 mL) subcutaneous pen (Novolog FlexPen U-100 Insulin aspart) 15 unit subcut TID DIABETES 08/13/23 [History Last Taken 09/05/23] vitamin B complex-vitamin C-folic acid 0.8 mg tablet (Nephro-Chris) 1 tab PO DAILY supplement 08/13/23 [History Last Taken 09/05/23] dicyclomine 10 mg capsule 10 mg PO BID #60 caps 08/14/23 [Rx Last Taken 09/05/23] lamotrigine 25 mg chewable dispersible tablet 50 mg (2 x 25 mg) PO DAILY #60 ea 08/14/23 [Rx Last Taken 09/05/23] pantoprazole 40 mg tablet,delayed release 40 mg PO DAILY #30 tabs 08/14/23 [Rx Last Taken Unknown] sennosides 8.6 mg-docusate sodium 50 mg tablet (Stool Softener-Stimulant Laxative) 2 tab PO DAILY #0 tabs 08/14/23 [Rx Last Taken Unknown] sucralfate 1 gram tablet 1 g PO TID@0700,1100,1600 #90 tabs 08/14/23 [Rx Last Taken 09/05/23] doxycycline monohydrate 100 mg capsule 100 mg PO BID #14 CAPSULES 09/06/23 [Rx Last Taken Unknown] Allergy/AdvReac Type Severity Reaction Status Date / Time lidocaine Allergy Severe Rash Verified 09/06/23 08:18 bacitracin Allergy Intermediate blisters Verified 09/06/23 08:18 hydrogen peroxide Allergy Intermediate blisters Verified 09/06/23 08:18 isopropyl alcohol Allergy Intermediate blisters Verified 09/06/23 08:18 Sulfa (Sulfonamide Allergy Intermediate Rash Verified 09/06/23 08:18 Antibiotics) Bleach (Sodium Hypochlorite) Allergy Hives Verified 09/06/23 08:18 insulin lispro Allergy HIVES, Verified 09/06/23 08:18 [From Humalog U-100 Insulin] REDNESS Latex, Natural Rubber Allergy Rash Verified 09/06/23 08:18 ondansetron [From Zofran] AdvReac Severe Constipatio Verified 09/06/23 08:18 n metformin AdvReac Vomiting Verified 09/06/23 08:18 neomycin AdvReac HIVES, Verified 09/06/23 08:18 [From Neosporin REDNESS ([id number])] polymyxin B AdvReac HIVES, Verified 09/06/23 08:18 [From Neosporin REDNESS ([id number])] Family History Other Arthritis Asthma CVA (cerebral vascular accident) Diabetes Heart disease High cholesterol Hypertension Kidney disease Osteoporosis Seizures Surgical History H/O left knee surgery H/O right knee surgery History of arteriovenostomy for renal dialysis History of bladder surgery History of History of cholecystectomy History of foot surgery History of infusaport central venous catheter removal History of liver biopsy History of lumpectomy of right breast History of shoulder surgery History of thoracentesis Hx of tonsillectomy Social History household members: family housing: house Smoking Status: Former smoker alcohol intake: never ROS ROS ED Constitutional Constitutional ED: Reports chills, fever(s), subjective and sweats; Denies weight loss Eyes Eyes: Denies blurry vision, change in vision or diplopia ENT ENT ED: Reports rhinorrhea and sore throat; Denies ear pain Cardiovascular Cardiovascular: Reports orthopnea; Denies chest pain, palpitations, paroxysmal nocturnal dyspnea or racing heartbeat Respiratory/Chest Respiratory/Chest: Reports cough, dyspnea, dyspnea on exertion, orthopnea and sputum; Denies paroxysmal nocturnal dyspnea Gastrointestinal Gastrointestinal: Reports diarrhea, nausea and vomiting; Denies abdominal pain, constipation or melena Genitourinary Genitourinary ED: Denies dysuria, hematuria or urinary frequency Musculoskeletal Musculoskeletal: Reports arthralgias, back pain and myalgias; Denies neck pain Integumentary Reports rash Neurologic Neurologic: Reports headache(s) and weakness; Denies paresthesias Endocrine Endocrinology: Denies cold intolerance or heat intolerance Hematologic/Lymphatic Hematologic/Lymphatic: Reports systems reviewed and no addt'l complaints, except as documented EXAM Physical Exam Const Vital Signs: 09/06/23 08:19 12 08:23 09/06/23 09:16 Temperature 99.5 F H 99.4 F H Temperature Source Temporal Temporal Pulse Rate 75 Respiratory Rate 18 Respiratory Effort Short of Breath Labored Respiratory Pattern Tachypnea Blood Pressure 190/77 H Blood Pressure Mean 114 Pulse Ox 97 Oxygen Delivery Method Room Air 09/06/23 08:23 09/06/23 09:23 09/06/23 10:00 Temperature 99.3 F H 99.4 F H 99.3 F H Temperature Source Temporal Temporal Temporal Pulse Rate 72 75 73 Respiratory Rate 28 H 26 H 24 H Respiratory Effort Respiratory Pattern Blood Pressure 208/84 H 198/80 H 195/82 H Blood Pressure Mean 125 119 119 Pulse Ox 95 94 95 Oxygen Delivery Method Room Air Room Air Room Air 09/06/23 11:00 09/06/23 12:00 Temperature 99.4 F H 99.3 F H Temperature Source Temporal Temporal Pulse Rate 74 76 Respiratory Rate 26 H 28 H Respiratory Effort Respiratory Pattern Blood Pressure 193/84 H 186/89 H Blood Pressure Mean 120 121 Pulse Ox 94 93 Oxygen Delivery Method Room Air Room Air Positive well nourished, well developed, obese and unkempt Constitutional Narrative: Patient is pale. She appears ill. General Appearance ED: unkempt, well developed and pallor; Negative for cyanotic, diaphoretic or NAD Nutritional Appearance: obese HEENT Reports moist mucous membranes HEENT Narrative: Head is atraumatic normocephalic. Ears are normal. Nares patent with discharge noted bilaterally. No ethmoid, maxillary or frontal sinus tenderness. Posterior pharynx exudate there is erythema. Eyes PERRL and EOMs intact bilaterally General Eye ED: Yes pale conjunctiva; Negative for scleral icterus Neck no lymphadenopathy, supple and no JVD Neck Narrative: Trach is midline. There is no inspiratory stridor or stridor. Chest Wall inspection of chest normal and palpation of chest normal Resp normal respiratory effort and No clear to auscultation bilaterally Resp Narrative: Patient is tachypneic and is breathing much more rapidly than 18 times that was documented by triage. Patient has bibasilar rales. There is no wheezing even with forced expiration. Cardio regular rhythm, S1 normal heart sound, S2 normal heart sound and no murmurs GI normal to inspection, nondistended, normoactive bowel sounds, non-tender, non- distended and no masses; Negative for hepatosplenomegaly Back/Spine no CVA tenderness Extremity Negative for normal to inspection Extremity Narrative: Patient has lymphedema of her lower extremities with venous stasis changes. There is no evidence of cellulitis. Patient does have a brace on her left leg. General Extremety ED: Yes edema General Extremity: edema Neuro oriented x3, CN's II-XII intact bilaterally and no sensory deficits noted Sensorium / Orientation: alert Psych mental status grossly normal Appearance: unkempt Skin no rashes or lesions noted and skin turgor normal General Skin Exam: pallor; Negative for jaundice MDM MDM MDM Narrative Medical decision making narrative: Differential diagnosis is viral versus bacterial infection. Patient symptoms are not inconsistent with possible COVID or influenza therefore will obtain rapid antigen testing. Because patient does have thick green productive sputum with abnormal oscillatory findings chest x-ray was obtained to assess for pneumonia. Since she was not ultrafiltrated on Wednesday and has not gone to dialysis today as scheduled the rales may represent fluid overload. BMP was obtained to assess potassium and BUN for same reasons the chest x-ray was obtained. Need to evaluate for hyperkalemia. CBC to assess white count and H&H especially since she is pale in appearance. History & Record Review Discussion w/independent historian: Patient and Family Additional record(s) reviewed:: Prior inpatient record (Patient was admitted in August for cephalgia, uncontrolled blood pressure, diabetes and hyperkalemia.), Prior ED visit (Patient has numerous visits and related to complications due to her diabetes and poor control) and Prior labs Lab Data Labs: Laboratory Results - last 24 hr 09/06/23 09:30 WBC 8.6 RBC 3.37 L Hgb 10.2 L Hct 29.9 L MCV 88.7 MCH 30.3 MCHC 34.1 RDW Std Deviation 41.7 RDW Coeff of Juna 12.8 Plt Count 230 MPV 9.9 Immature Gran % (Auto) 0.300 Neut % (Auto) 77.1 H Lymph % (Auto) 11.0 L [place] % (Auto) 5.8 Eos % (Auto) 5.1 H Baso % (Auto) 0.7 Absolute Neuts (auto) 6.6 Absolute Lymphs (auto) 0.95 Nucleated RBC % 0 Sodium 137 Potassium 3.9 Chloride 102 Carbon Dioxide 23.0 Anion Gap 12 BUN 40 H Creatinine 5.26 H Estim Creat Clear Calc 12.86 Est GFR (MDRD) Af Amer 11 L Est GFR (MDRD) Non-Af 9 L BUN/Creatinine Ratio 7.6 L Glucose 361 H Lactic Acid 1.3 Calcium 9.0 Radiography Diagnostic Testing: Clinical Impression(s) from Imaging Studies Chest X-Ray 09/06/23 11:30 IMPRESSION: Normal x-ray examination of the chest. Electronically Signed: Vaughn Alves MD at 12:10 EST , Treatment and Re-Evaluation :: Patient and family were made aware of chest x-ray and laboratory results. She was discharged home with prescription for doxycycline. Discharge Plan Triage Chief Complaint: General Illness ED Provider: Rafael Cleaning Dx/Rx/DC Orders Clinical Impression: ESRD needing dialysis, Bronchitis, mucopurulent recurrent, Type 2 diabetes mellitus, Hypertension, Obesity Instructions: ED Upper Resp Infec Abx Tx Prescriptions: New doxycycline monohydrate 100 mg capsule 100 mg PO BID Qty: 14 0RF No Action aspirin 81 mg tablet,delayed release (DR/EC) 81 mg PO DAILY cetirizine 10 mg tablet 10 mg PO DAILY pantoprazole 40 mg tablet,delayed release (DR/EC) 40 mg PO DAILY bumetanide 1 mg tablet 1 mg PO DAILY losartan 50 mg tablet 100 mg PO DAILY tamsulosin 0.4 mg capsule 0.4 mg PO QHS promethazine 25 mg tablet 25 mg PO Q6H PRN (Reason: NAUSEA/VOMITING) atorvastatin 40 mg Tablet 40 mg PO QHS Qty: 30 1RF albuterol sulfate 2.5 mg /3 mL (0.083 %) Solution For Nebulization 2.5 mg INHALATION Q4H PRN (Reason: SOB) Velphoro 500 mg Tablet,Chewable 500 mg PO TID cyclobenzaprine 10 mg Tablet 10 mg PO TID PRN PRN (Reason: Breakthrough Pain (>4/10)) 7 Days Qty: 21 0RF gabapentin 100 mg capsule 300 mg PO QHS Qty: 21 0RF hydrocodone-acetaminophen 7.5-325 mg tablet 1 tab PO Q6H PRN (Reason: pain) 3 Days Qty: 12 0RF hydrocodone-acetaminophen 7.5-325 mg tablet 1 tab PO Q6H PRN (Reason: pain) 3 Days Qty: 12 0RF Nephro-Chris 0.8 mg tablet 1 tab PO DAILY dicyclomine 10 mg capsule 10 mg PO BID acetaminophen 500 mg Tablet 1,000 mg PO Q6H PRN (Reason: pain) insulin aspart U-100 [Novolog FlexPen U-100 Insulin] 100 unit/mL (3 mL) insulin pen 15 unit subcut TID sennosides-docusate sodium [Stool Softener-Stimulant Laxat] 8.6-50 mg Tablet 2 tab PO DAILY Qty: 0 0RF lamotrigine 25 mg Tablet, Chewable Dispersible 50 mg PO DAILY Qty: 60 0RF pantoprazole 40 mg Tablet,Delayed Release (Dr/Ec) 40 mg PO DAILY Qty: 30 0RF dicyclomine 10 mg Capsule 10 mg PO BID Qty: 60 0RF sucralfate 1 gram Tablet 1 g PO TID@0700,1100,1600 Qty: 90 0RF (DME) FreeStyle Gissell 2 Sensor Kit See Rx Instructions .Route Qty: 6 1RF Rx Instructions: 1 sensor q 14 days insulin detemir U-100 100 unit/mL (3 mL) insulin pen 26 unit subcut QHS Qty: 30 0RF (DME) pen needle, diabetic [BD Ultra-Fine Laura Pen Needle] 32 gauge x 5/32 needle See Rx Instructions .ROUTE .MEDSUPPLY Qty: 400 3RF Rx Instructions: 4 times daily Primary Care Provider: Sarah Peters Referrals: Sarah Peters, [Primary Care Provider] - 3-5 Days if not improving Disposition Disposition: Home, Self Care
[2023-09-06] MEDS: Acetaminophen 325 MG Tablet 650 MG PO (08:56)
[2023-09-06 09:44] LABS: Absolute Lymphocyte Count 0.95 X10^3/uL (0.83-4.51); Absolute Neutrophil Count 6.6 X10^3/uL (2.0-7.7); Basophil# 0.06 X10^3/uL; Basophil% 0.7 % (0-1); Eosinophil# 0.44 X10^3/uL; Eosinophils% 5.1 % (0-5); Hematocrit 29.9 % (37-47); Hemoglobin 10.2 g/dL (12.0-15.0); Lymphocyte # 0.95 X10^3/ul (0.83-4.51); Mean Corp Hgb Conc 34.1 g/dL (32-36); Mean Corpuscular Hgb 30.3 pg (27.0-32.0); Mean Corpuscular Volume 88.7 fL (81-99); Mean Platelet Vol. 9.9 fl (6.2-12.0); Monocyte% 5.8 % (0-10); NRBC Flagged by Analyzer 0 % (0-5); Neutrophil # 6.64 X10^3/uL (2.7-7.7); Neutrophil % 77.1 % (47-70); Platelet Count 230 K/mm3 (150-450); RBC Distribution Width CV 12.8 % (11.6-14.6); RBC Distribution Width SD 41.7 fl (35.1-43.9); Red Blood Count 3.37 M/mm3 (4.2-5.4); White Blood Count 8.6 K/mm3 (4.4-11.0)
[2023-09-06 10:02] LABS: Anion Gap 12 (5-15); BUN 40 mg/dL (7-18); BUN/Creat Ratio 7.6 RATIO (10-20); Chloride 102 mmol/L (98-107); Creatinine, Serum 5.26 mg/dL (0.55-1.02); EST Glomerular Filtration Rate 9 mL/min (>60); Est Glom Filt Rate - Afr Amer 11 mL/min (>60); Estimated Creatinine Clearance 12.86 ml/min; Glucose 361 mg/dL (74-106); Potassium 3.9 mmol/L (3.5-5.1); Sodium Level 137 mmol/L (136-145)
[2023-09-06 10:09] LABS: Lactic Acid 1.3 mmol/L (0.4-1.9)
--- NOTE | 2023-09-06 11:30 | RAD_ITS ---
STUDY: X-RAY CHEST REASON FOR EXAM: Female, 48 years old. Subjective, chills, productive cough TECHNIQUE: Cough, diarrhea and body aches. COMPARISON: Comparison is made with prior study dated August 13, 2023. FINDINGS: The lungs are clear and expanded. There is no demonstrated pleural abnormality. Normal size heart. Normal mediastinum and nahun. Normal visualized pulmonary arteries. Normal visualized aortic arch and descending thoracic aorta. Normal visualized thoracic spine. Normal visualized ribs, clavicles, and shoulders. There is no demonstrated abnormality of the visualized soft tissue structures of the upper abdomen. RAD/Chest PA and Lateral IMPRESSION: Normal x-ray examination of the chest. Electronically Signed: Vaughn Alves MD at 12:10 EST ,
[2023-09-06] MEDS: Doxycycline 100 MG CAPSULE PO (14:11)
== END 2023-09-06 14:33 | disposition home or self-care (01) ==
PROVIDERS: Emergency Provider Emergency Medicine; PCP Family Medicine; Visit Provider Emergency Medicine
DX: I13.2 Hypertensive heart and chronic kidney disease with heart failure and with stage 5 chronic kidney disease, or end stage renal disease (principal); I50.9 Heart failure, unspecified; E11.22 Type 2 diabetes mellitus with diabetic chronic kidney disease; N18.6 End stage renal disease; Z79.4 Long term (current) use of insulin; I16.0 Hypertensive urgency; E66.9 Obesity, unspecified; E78.00 Pure hypercholesterolemia, unspecified; Z86.73 Personal history of transient ischemic attack (TIA), and cerebral infarction without residual deficits; J40 Bronchitis, not specified as acute or chronic; Z87.891 Personal history of nicotine dependence; H10.029 Other mucopurulent conjunctivitis, unspecified eye
CPT/HCPCS: 71046; 80048; 83605; 85025; 87428; 99284; A4216

== ENCOUNTER 2023-10-07 23:18 | Emergency (ER) | payer MEDICARE, MEDICAID, SELFPAY ==
[2023-10-07 23:19] VITALS: BP 222/111; PULSE 81; RESP 18; TEMP 36.7; O2SAT 100
--- NOTE | 2023-10-07 23:41 | EX.ED.DYSGE1 ---
HPI History of Present Illness Chief Complaint: GI Bleed Informant: patient Narrative Narrative: 48-year-old female with a history of gastroparesis, Fleming's esophagus, ESRD on dialysis, and diabetes states 3 days ago she had multiple bouts of nausea/vomiting, and the last couple had some blood in them. The next day she vomited once and it was just a scant amount of blood. She saw her PCP incidentally that they had a previously scheduled appointment, she states she has had cough congestion bronchitis for the last month so when it did not get better with doxycycline she was placed on a Z-Jeff which she has now been taking for 2-3 days. She states she had some more vomiting tonight with small amount of blood in it, she called the on-call at [facility] for her doctor's and she was advised to come to the emergency department emergently. She states she has chronic right side and upper mid abdominal pain with her gastroparesis and states that has been no different or worse with this. She denies any melena or bright red blood per rectum. She denies any coffee-ground emesis. She states since this occurred she has some pain in the left side of her throat that feels like a hard chip scratched it but I have not eaten anything hard. She denies any orthostatic symptoms which she has had in the past with other issues. She thinks she is on clopidogrel because of a history of vascular disease, but denies being on anticoagulants when she is not being dialyzed. Her last dialysis session with the day before the onset of hematemesis and she has not had a session since. She is on daily PPI because of her Fleming's esophagus. She has a history of stomach ulcers in the past 2, she states she gets typical discomfort with those that she does not currently have. [facility] Medical History Anxiety Arthritis Asthma Fleming esophagus Blackout Bruising delivery delivered Chronic kidney disease Depression Dietary restriction Difficulty swallowing Disc disorder Easy bruising ESRD needing dialysis FH: cholecystectomy Fibromyalgia, primary Former smoker Gastric reflux High cholesterol History of CHF (congestive heart failure) History of Clostridium difficile infection History of echocardiogram History of edema History of stress test History of ulceration Hypertension Hypertension Hypertensive urgency Injury of head and neck Insulin dependent diabetes mellitus Left foot amputee (~2019) Left hand pain Loss of hearing Low iron LUE weakness Migraine headache On home oxygen therapy Seasonal allergies Shortness of breath on exertion Stroke (~2021) Syncope Thyroid disease Transitioned from acute care to home health care Uses wheelchair Vision impairment Walker as ambulation aid Wears glasses Home Medications aspirin 81 mg tablet,delayed release 81 mg PO DAILY HEART HEALTH 06/23/22 [History Last Taken 09/05/23] bumetanide 1 mg tablet 1 mg PO DAILY FLUID 06/23/22 [History Last Taken 09/05/23] cetirizine 10 mg tablet 10 mg PO DAILY ALLERGIES 06/23/22 [History Last Taken 09/05/23] losartan 50 mg tablet 100 mg PO DAILY BLOOD PRESSURE 06/23/22 [History Last Taken 09/05/23] pantoprazole 40 mg tablet,delayed release 40 mg PO DAILY ACID REFLUX 06/23/22 [History Last Taken 09/05/23] tamsulosin 0.4 mg capsule 0.4 mg PO QHS BLADDER 06/23/22 [History Last Taken 09/05/23] promethazine 25 mg tablet 25 mg PO Q6H PRN NAUSEA/VOMITING 09/01/22 [History Last Taken Unknown] atorvastatin 40 mg tablet 40 mg PO QHS #30 tabs 09/04/22 [Rx Last Taken 09/05/23] albuterol sulfate 2.5 mg/3 mL (0.083 %) solution for nebulization 2.5 mg inhalation Q4H PRN SOB 01/07/23 [History Last Taken 01/19/23] sucroferric oxyhydroxide 500 mg chewable tablet (Velphoro) 500 mg PO TID 01/07/23 [History Last Taken 09/05/23] cyclobenzaprine 10 mg tablet 10 mg PO TID PRN PRN Breakthrough Pain (>4/10) 7 days #21 tabs 01/22/23 [Rx Last Taken 09/05/23] gabapentin 100 mg capsule 300 mg (3 x 100 mg) PO QHS NERVE PAIN #21 caps 01/22/23 [Rx Last Taken 09/05/23] flash glucose sensor (FreeStyle Gissell 2 Sensor kit) #6 ea 03/16/23 [Rx Last Taken Unknown] hydrocodone 7.5 mg-acetaminophen 325 mg tablet 1 tab PO Q6H PRN pain 3 days #12 tabs 04/06/23 [Rx Last Taken 09/05/23] hydrocodone 7.5 mg-acetaminophen 325 mg tablet 1 tab PO Q6H PRN pain 3 days #12 tabs 04/12/23 [Rx Last Taken Unknown] insulin detemir U-100 100 unit/mL (3 mL) subcutaneous pen 26 unit (0.26 mL) subcut QHS DIABETES #30 mL 08/04/23 [Rx Last Taken 09/03/23] pen needle, diabetic 32 gauge x 5/32 (BD Ultra-Fine Laura Pen Needle) #400 ea 08/04/23 [Rx Last Taken Unknown] acetaminophen 500 mg tablet 1,000 mg PO Q6H PRN pain 08/13/23 [History Last Taken Unknown] dicyclomine 10 mg capsule 10 mg PO BID stomach 08/13/23 [History Last Taken Unknown] insulin aspart U-100 100 unit/mL (3 mL) subcutaneous pen (Novolog FlexPen U-100 Insulin aspart) 15 unit subcut TID DIABETES 08/13/23 [History Last Taken 09/05/23] vitamin B complex-vitamin C-folic acid 0.8 mg tablet (Nephro-Chris) 1 tab PO DAILY supplement 08/13/23 [History Last Taken 09/05/23] dicyclomine 10 mg capsule 10 mg PO BID #60 caps 08/14/23 [Rx Last Taken 09/05/23] lamotrigine 25 mg chewable dispersible tablet 50 mg (2 x 25 mg) PO DAILY #60 ea 08/14/23 [Rx Last Taken 09/05/23] pantoprazole 40 mg tablet,delayed release 40 mg PO DAILY #30 tabs 08/14/23 [Rx Last Taken Unknown] sennosides 8.6 mg-docusate sodium 50 mg tablet (Stool Softener-Stimulant Laxative) 2 tab PO DAILY #0 tabs 08/14/23 [Rx Last Taken Unknown] sucralfate 1 gram tablet 1 g PO TID@0700,1100,1600 #90 tabs 08/14/23 [Rx Last Taken 09/05/23] doxycycline monohydrate 100 mg capsule 100 mg PO BID #14 CAPSULES 09/06/23 [Rx Last Taken Unknown] Allergy/AdvReac Type Severity Reaction Status Date / Time lidocaine Allergy Severe Rash Verified 10/07/23 23:21 bacitracin Allergy Intermediate blisters Verified 10/07/23 23:21 hydrogen peroxide Allergy Intermediate blisters Verified 10/07/23 23:21 isopropyl alcohol Allergy Intermediate blisters Verified 10/07/23 23:21 Sulfa (Sulfonamide Allergy Intermediate Rash Verified 10/07/23 23:21 Antibiotics) Bleach (Sodium Hypochlorite) Allergy Hives Verified 10/07/23 23:21 insulin lispro Allergy HIVES, Verified 10/07/23 23:21 [From Humalog U-100 Insulin] REDNESS Latex, Natural Rubber Allergy Rash Verified 10/07/23 23:21 ondansetron [From Zofran] AdvReac Severe Constipatio Verified 10/07/23 23:21 n dicyclomine AdvReac Mild Vomiting Verified 10/07/23 23:21 metformin AdvReac Vomiting Verified 10/07/23 23:21 neomycin AdvReac HIVES, Verified 10/07/23 23:21 [From Neosporin REDNESS ([id number])] polymyxin B AdvReac HIVES, Verified 10/07/23 23:21 [From Neosporin REDNESS ([id number])] Family History Other Arthritis Asthma CVA (cerebral vascular accident) Diabetes Heart disease High cholesterol Hypertension Kidney disease Osteoporosis Seizures Surgical History H/O left knee surgery H/O right knee surgery History of arteriovenostomy for renal dialysis History of bladder surgery History of History of cholecystectomy History of foot surgery History of infusaport central venous catheter removal History of liver biopsy History of lumpectomy of right breast History of shoulder surgery History of thoracentesis Hx of tonsillectomy Social History household members: family housing: house Smoking Status: Former smoker alcohol intake: never ROS ROS ED Constitutional Constitutional ED: Denies chills or fever(s) Eyes Eyes: Denies change in vision or diplopia ENT ENT ED: Reports sore throat; Denies ear pain or rhinorrhea Cardiovascular Cardiovascular: Denies chest pain, lightheadedness, palpitations or syncope Respiratory/Chest Respiratory/Chest: Denies cough or dyspnea Gastrointestinal Gastrointestinal: Reports as per HPI, abdominal pain, hematemesis, nausea and vomiting; Denies diarrhea, hematochezia or melena Genitourinary Genitourinary ED: Denies dysuria or hematuria Musculoskeletal Musculoskeletal: Denies back pain or neck pain Integumentary Denies abscess or rash Neurologic Neurologic: Denies headache(s), paresthesias or weakness Psychiatric Psychiatric: Denies anxiety or suicidal thoughts EXAM Physical Exam Const Vital Signs: 10/07/23 23:19 Temperature 98.0 F Temperature Source Temporal Pulse Rate 81 Respiratory Rate 18 Blood Pressure 222/111 H Blood Pressure Mean 148 Pulse Ox 100 Oxygen Delivery Method Room Air Positive well nourished and well developed General Appearance ED: well developed and NAD HEENT Reports moist mucous membranes normocephalic and atraumatic Eyes PERRL and EOMs intact bilaterally Neck full ROM, no lymphadenopathy and supple Resp normal respiratory effort and clear to auscultation bilaterally Cardio regular rate, regular rhythm and no murmurs GI non-distended GI Narrative: Mild tenderness epigastrium no guarding or rebound otherwise benign abdomen. Obesity limits exam somewhat. Auscultation: normoactive bowel sounds Palpation: soft Back/Spine no CVA tenderness General Back: other FROM Extremity normal to inspection Extremity Narrative: Good thrill AV fistula left upper arm General Extremety ED: Yes edema; Negative for pulses abnormal or tenderness General Extremity: edema bilateral lower extremity Details: moderate; Negative for pulses abnormal Neuro oriented x3, CN's II-XII intact bilaterally and no sensory deficits noted Sensorium / Orientation: awake and alert Motor Exam: strength 5/5 throughout Psych Mood & Affect: anxious Skin no rashes or lesions noted and no wounds MDM MDM MDM Narrative Medical decision making narrative: Will work in the patient up and obtaining a type and screen, she was given empiric small amount of IV fluids as well as oral Phenergan at her request given reaction other medications that she does not want for nausea, and IV pantoprazole 80 mg. Also offered Mylanta advanced as well as supra fate. Differential here includes irritated distal esophagus from multiple causes including Kimberly-Mckenzie tear, peptic or duodenal ulcer, she does not have a history of cirrhosis so varices are less likely. Clinically does not sound like she has been absolutely hemorrhaging. She is hypertensive here but otherwise her vitals are stable and she is clinically stable and not vomiting at this time. Blood counts are excellent at 10.9 hemoglobin. The rest of her labs are noted. The only 1 out of concern is her glucose of 540. When discussing this with her that she states that she took a dose of insulin just prior to coming here, so after the IV fluids and pantoprazole 80 mg that she had as well as Phenergan, which resulted in some improvement in pain and nausea and she has had no vomiting in the emergency department or signs of instability although her pressure is high, I had them recheck her blood sugar prior to discharge. At this time her blood counts look good, she is hemodynamically stable, she is clinically stable and she has not had any type of hemorrhaging, she is in agreement with that. Tonight she threw up a small amount of blood. She is already on Carafate at home which we gave her here. She takes it 3 times daily every single day, for reasons that she is not sure and neither am I. She states it is for her gastroparesis. She is on pantoprazole 40 mg once daily, I recommend doubling that to twice daily for the next week and follow-up with her doctor. If she has significant hemorrhaging, or intractable bleeding she should return to the ER immediately which she is understanding. She may need an EGD and I recommend that she follow-up for that, but she is in no emergent need of 1 at this time. I will give her GI follow-up, if she can follow-up with someone in [place] where she is from or with [facility] where she sees doctors, I would be fine with that. If her condition changes at which point she may need to be admitted to the hospital for urgent/emergent EGD we can do that as well but that is time and is not indicated emergently. She understands all that. She already has Phenergan at home in order to help prevent vomiting which could exacerbate where the problem is. I offered her a CT scan when she kept explaining concern about her odynophagia, she states that all the way down that hurts when she swallows, she declines a CT scan. She states it does not feel like an abscess, because goes all the way down. Mucosal tear/abrasion is in the differential. She states she takes some blood sometimes so that could be the source of the bleeding as well as opposed to distal esophagus or stomach. Lab Data Attestation: I reviewed the patient's lab results. Labs: Laboratory Results - last 24 hr 10/07/23 23:30 WBC 8.4 RBC 3.68 L Hgb 10.9 L Hct 32.9 L MCV 89.4 MCH 29.6 MCHC 33.1 RDW Std Deviation 41.2 RDW Coeff of Juan 12.6 Plt Count 252 MPV 9.9 Immature Gran % (Auto) 0.600 Neut % (Auto) 66.7 Lymph % (Auto) 23.6 [place] % (Auto) 4.4 Eos % (Auto) 3.7 Baso % (Auto) 1.0 Absolute Neuts (auto) 5.6 Absolute Lymphs (auto) 1.98 Nucleated RBC % 0 Sodium 132 L Potassium 4.6 Chloride 99 Carbon Dioxide 25.0 Anion Gap 8 BUN 42 H Creatinine 5.43 H Est GFR (MDRD) Af Amer 11 L Est GFR (MDRD) Non-Af 9 L BUN/Creatinine Ratio 7.7 L Glucose 540 H* Calcium 9.1 Total Bilirubin 0.40 AST 12 L ALT 21 Alkaline Phosphatase 95 Total Protein 6.6 Albumin 2.9 L Globulin 3.7 Albumin/Globulin Ratio 0.8 L Discharge Plan Triage Chief Complaint: GI Bleed ED Provider: Param Potts Dx/Rx/DC Orders Clinical Impression: Hematemesis, ESRD needing dialysis, Odynophagia, Accelerated hypertension, Hyperglycemia due to type 2 diabetes mellitus Instructions: Kimberly-Mckenzie Tear, ED Upper GI Bleeding (Stable) Prescriptions: No Action aspirin 81 mg tablet,delayed release (DR/EC) 81 mg PO DAILY cetirizine 10 mg tablet 10 mg PO DAILY pantoprazole 40 mg tablet,delayed release (DR/EC) 40 mg PO DAILY bumetanide 1 mg tablet 1 mg PO DAILY losartan 50 mg tablet 100 mg PO DAILY tamsulosin 0.4 mg capsule 0.4 mg PO QHS promethazine 25 mg tablet 25 mg PO Q6H PRN (Reason: NAUSEA/VOMITING) atorvastatin 40 mg Tablet 40 mg PO QHS Qty: 30 1RF albuterol sulfate 2.5 mg /3 mL (0.083 %) Solution For Nebulization 2.5 mg INHALATION Q4H PRN (Reason: SOB) Velphoro 500 mg Tablet,Chewable 500 mg PO TID cyclobenzaprine 10 mg Tablet 10 mg PO TID PRN PRN (Reason: Breakthrough Pain (>4/10)) 7 Days Qty: 21 0RF gabapentin 100 mg capsule 300 mg PO QHS Qty: 21 0RF hydrocodone-acetaminophen 7.5-325 mg tablet 1 tab PO Q6H PRN (Reason: pain) 3 Days Qty: 12 0RF hydrocodone-acetaminophen 7.5-325 mg tablet 1 tab PO Q6H PRN (Reason: pain) 3 Days Qty: 12 0RF Nephro-Chris 0.8 mg tablet 1 tab PO DAILY dicyclomine 10 mg capsule 10 mg PO BID acetaminophen 500 mg Tablet 1,000 mg PO Q6H PRN (Reason: pain) insulin aspart U-100 [Novolog FlexPen U-100 Insulin] 100 unit/mL (3 mL) insulin pen 15 unit subcut TID sennosides-docusate sodium [Stool Softener-Stimulant Laxat] 8.6-50 mg Tablet 2 tab PO DAILY Qty: 0 0RF lamotrigine 25 mg Tablet, Chewable Dispersible 50 mg PO DAILY Qty: 60 0RF pantoprazole 40 mg Tablet,Delayed Release (Dr/Ec) 40 mg PO DAILY Qty: 30 0RF dicyclomine 10 mg Capsule 10 mg PO BID Qty: 60 0RF sucralfate 1 gram Tablet 1 g PO TID@0700,1100,1600 Qty: 90 0RF doxycycline monohydrate 100 mg capsule 100 mg PO BID Qty: 14 0RF (DME) FreeStyle Gissell 2 Sensor Kit See Rx Instructions .Route Qty: 6 1RF Rx Instructions: 1 sensor q 14 days insulin detemir U-100 100 unit/mL (3 mL) insulin pen 26 unit subcut QHS Qty: 30 0RF (DME) pen needle, diabetic [BD Ultra-Fine Laura Pen Needle] 32 gauge x 5/32 needle See Rx Instructions .ROUTE .MEDSUPPLY Qty: 400 3RF Rx Instructions: 4 times daily Primary Care Provider: Sarah Peters Referrals: Sarah Peters DO [Primary Care Provider] - As soon as possible Ramon Moeller DO [Med Staff - Active Staff] - As soon as possible (Or gastroenterology with the [facility] or wherever else you are established) Activity Restrictions/Additional Instructions: For the next 1 days double your pantoprazole to 1 tablet twice daily, take your Phenergan as needed for nausea to avoid vomiting, and try to stay hydrated. Disposition Disposition: Home, Self Care
[2023-10-07 23:55] LABS: Absolute Lymphocyte Count 1.98 X10^3/uL (0.83-4.51); Absolute Neutrophil Count 5.6 X10^3/uL (2.0-7.7); Basophil# 0.08 X10^3/uL; Eosinophil# 0.31 X10^3/uL; Eosinophils% 3.7 % (0-5); Hematocrit 32.9 % (37-47); Hemoglobin 10.9 g/dL (12.0-15.0); Lymphocyte # 1.98 X10^3/ul (0.83-4.51); Lymphocyte % 23.6 % (19-41); Mean Corp Hgb Conc 33.1 g/dL (32-36); Mean Corpuscular Hgb 29.6 pg (27.0-32.0); Mean Corpuscular Volume 89.4 fL (81-99); Mean Platelet Vol. 9.9 fl (6.2-12.0); Monocyte# 0.37 X10^3/uL; Monocyte% 4.4 % (0-10); NRBC Flagged by Analyzer 0 % (0-5); Neutrophil # 5.61 X10^3/uL (2.7-7.7); Neutrophil % 66.7 % (47-70); Platelet Count 252 K/mm3 (150-450); RBC Distribution Width CV 12.6 % (11.6-14.6); RBC Distribution Width SD 41.2 fl (35.1-43.9); Red Blood Count 3.68 M/mm3 (4.2-5.4); White Blood Count 8.4 K/mm3 (4.4-11.0)
--- OUTSIDE RECORDS SUMMARY | 2023-10-08 00:11 | XMS RPT_ITS | CCD ---
Author Name Unknown Address [address] [place] [address] Organization [facility] Care Team Providers Care Game Technician Name Role Phone Caroline Sousa Unavailable Unavailable Unavailable Unavailable Primary Care Provider Unavailkwaku bosch Lars, Ms. Caroline Villanuevay Attending Unavailable Lars, . Caroline Dedra Primary Care Unavailable Sousa DNA SEQUENCING ASSOCIATE-MARTHA Caroline Kayden Primary Care Provider [phone] Sousa, Caroline Dedra Referring Unavailable Sousa, Ms. Caroline Dedra Primary Care Unavailable Lars, Ms. Caroline Ddera Attending Unavailable Lars, Ms. Caroline Dedra Attending Unavailable Sousa, Ms. Caroline Dedra Referring Unavailable Sousa, Ms. Caroline Dedra Primary Care Unavailable Sousa, Ms. Caroline Dedra Attending Unavailable Sousa, Ms. Caroline Dedra Referring Unavailable Sousa, Ms. Caroline Dedra Primary Care Unavailable Sousa, Ms. Caroline Dedra Referring Unavailable Sousa, Ms. Caroline Dedra Primary Care Unavailable Sousa, Ms. Caroline Dedra Attending Unavailable Dr. Fede Skinner Attending Unavailable Sousa, Ms. Caroline Dedra Primary Care Unavailable Sousa, Ms. Caroline Dedra Referring Unavailable Sousa, Ms. Caroline Dedra Attending Unavailable Lars, Ms. Carolnie Dedra Referring Unavailable Sousa, Ms. Caroline Dedra Primary Care Unavailable Lars, Ms. Caroline Dedra Referring Unavailable Lars, Ms. Caroline Dedra Attending Unavailable Lars, Ms. Caroline Dedra Primary Care Unavailable Lars, Caroline Unavailable Unavailable Abraham Gutierrez Unavailable Unavailable Xochitl Peters DO Primary Care Provider [phone] Maddy Anaya MD Unavailable SHEETS, XOCHITL C Attending Unavailable SHEETS, XOCHITL C Primary Care Unavailable SHEETS, XOCHITL C Primary Care Unavailable SHEETS, XOCHITL C Referring Unavailable SHEETS, XOCHITL C Primary Care Unavailable SHEETS, XOCHITL C Referring Unavailable SHEETS, XOCHITL C Attending Unavailable Allergies Allergy Classification Reported Allergen(s) Allergy Type Date of Onset Reaction(s) Facility (20 sources) Bacitracin; Translations: [bacitracin] Drug Allergy 11-11-19 Unknown, Other: See Comments [facility] and Work Phone: (14 sources) Bacitracin / Neomycin / Polymyxin B; Translations: [Neosporin OINT] Drug Allergy [facility] Work Phone: (14 sources) Hydrogen Peroxide; Translations: [PX Hydrogen Peroxide SOLN] Drug Allergy [facility] Work Phone: (20 sources) Lidocaine; Translations: [lidocaine] Drug Allergy 11-11-19 Unknown, Other: See Comments [facility] Work Phone: (20 sources) metFORMIN; Translations: [metformin] Drug Allergy 11-11-19 Unknown, Diarrhea, GI Upset [facility] and Work Phone: (15 sources) Polymyxin B; Translations: [Polymyxin B Sulfate SOLR] Drug Allergy 11-11-19 Unknown [facility] and Work Phone: (15 sources) Sulfamethoxazole / Trimethoprim; Translations: [Bactrim] Drug Allergy 11-11-19 Unknown [facility] and Work Phone: (14 sources) Rubbing Alcohol SOLN; Translations: [Rubbing Alcohol SOLN] Allergy to drug (finding) [facility] Work Phone: (14 sources) Adhesive Tape TAPE; Translations: [Adhesive Tape TAPE] Allergy to drug (finding) [facility] Work Phone: (14 sources) Latex Gloves MISC; Translations: [Latex Gloves MISC] Allergy to drug (finding) [facility] Work Phone: (5 sources) insulin isophane / insulin, regular, human; Translations: [Humulin L SUSP] Drug Allergy [facility] DO Work Phone: (1 source) Bacitracin / Polymyxin B Drug Allergy 11-11-19 Unknown [facility] Work Phone: (6 sources) Benzalkonium; Translations: [BENZALKONIUM CHLORIDE] Drug Allergy 09-05-20 14 Hives, Other: See Comments [facility] (1 source) Hydrogen Peroxide Drug Allergy 11-11-19 [facility] Work Phone: (1 source) Isopropyl Alcohol Drug Allergy 11-11-19 [facility] Work Phone: (6 sources) Latex; Translations: [LATEX] Propensity to adverse reactions 11-11-19 Unknown, Other: See Comments [facility] Work Phone: (1 source) lente insulin, human Drug Allergy 11-11-19 [facility] Work Phone: (1 source) Neomycin Drug Allergy 03-16-20 [facility] Work Phone: (1 source) Adhesive Tape-Silicones Propensity to adverse reactions 11-11-19 Unknown [facility] (1 source) Gramicidins Drug Intolerance 03-16-20 [facility] Work Phone: (5 sources) Benzoyl Peroxide; Translations: [BENZOYL PEROXIDE] Drug Allergy 08-24-20 Other: See Comments [facility] (5 sources) Ethanol; Translations: [ETHYL ALCOHOL] Drug Allergy 08-24-20 Other: See Comments [facility] (5 sources) Hypochlorite; Translations: [BLEACH (SODIUM HYPOCHLORITE)] Drug Allergy 08-24-20 Other: See Comments [facility] (5 sources) Ondansetron; Translations: [ONDANSETRON] Drug Allergy 08-24-20 Other: See Comments [facility] (5 sources) Sulfonamides (Antibiotic); Translations: [SULFA (SULFONAMIDE ANTIBIOTICS)] Drug Allergy 08-24-20 Hives, Swelling [facility] (5 sources) trichloroacetaldehy de; Translations: [CHLORAL BETAINE] Drug Allergy 08-24-20 Other: See Comments [facility] Medications Current Medications Medication Drug Class(es) Dates Sig (Normalized) Sig (Original) aspirin 81 mg delayed release oral tablet (20 sources) Platelet Aggregation Inhibitor, Nonsteroidal Anti-inflammatory Drug Start: 08-24-2023 End: 11-22-2023 take 1 tablet by mouth once daily aspirin, enteric coated (ASPIRIN, ENTERIC COATED) 81 mg EC tablet Take 1 tablet by mouth once daily. 30 tablet 2 08/24/2023 11/22/2023 Active Completed/Discontinued Medications Medication Drug Class(es) Dates Sig (Normalized) Sig (Original) acetaminophen 325 mg / HYDROcodone bitartrate 7.5 mg oral tablet (19 sources) Opioid Agonist take 1 tablet by tammy th every twelve hours as needed HYDROcodone-Acetami nophen (NORCO) 7.5-325 mg per tablet Take 1 tablet by mouth two times a day as needed for pain. 0 Active Problems Active Problems Problem Classification Problem Date Documented Date Episodic/Chronic Acquired foot deformities (7 sources) Left foot drop; Translations: [Foot drop, left foot] Onset: 08-24-2023 08-24-2023 Episodic Allergic reactions (1 source) Environmental allergy; Translations: [Other allergy, other than to medicinal agents] Episodic Anxiety disorders (1 source) Obsessive-compulsive disorder; Translations: [Other obsessive-compulsive disorder] Onset: 05-01-2022 03-16-2023 Chronic Asthma (20 sources) Mild intermittent asthma; Translations: [Asthma, unspecified type, unspecified] Onset: 11-11-2022 03-16-2023 Chronic Bacterial infection; unspecified site (1 source) Other specified bacterial agents as the cause of diseases classified elsewhere; Translations: [Bacterial sinusitis] Onset: 10-05-2023 Episodic Chronic kidney disease (20 sources) End-stage renal disease; Translations: [End stage renal disease] Onset: 04-01-2021 03-16-2023 Chronic Chronic ulcer of skin (5 sources) Non-pressure chronic ulcer of left heel and midfoot with unspecified severity; Translations: [Ulcer of heel and midfoot] Onset: 08-24-2023 08-24-2023 Chronic Coagulation and hemorrhagic disorders (2 sources) Blood coagulation disorder; Translations: [Coagulation defect, unspecified] Onset: 05-04-2022 03-16-2023 Chronic Congestive heart failure; nonhypertensive (16 sources) Congestive heart failure; Translations: [Congestive heart failure, unspecified] Onset: 11-11-2022 11-11-2022 Chronic Coronary atherosclerosis and other heart disease (15 sources) Coronary arteriosclerosis; Translations: [Coronary atherosclerosis of unspecified type of vessel, chevak or graft] Onset: 11-11-2022 11-11-2022 Chronic Deficiency and other anemia (14 sources) Chronic anemia; Translations: [Anemia, unspecified] Episodic Diabetes mellitus with complications (20 sources) Type 2 diabetes mellitus; Translations: [Diabetes with peripheral circulatory disorders, type II or unspecified type, not stated as uncontrolled] Onset: 11-11-2022 03-16-2023 Chronic Disorders of lipid metabolism (20 sources) Dyslipidemia; Translations: [Other and unspecified hyperlipidemia] Onset: 11-11-2022 11-11-2022 Chronic Esophageal disorders (20 sources) Fleming's esophagus; Translations: [Fleming's esophagus] Onset: 11-11-2022 03-22-2023 Chronic Essential hypertension (20 sources) Benign essential hypertension; Translations: [Benign essential hypertension] Onset: 11-11-2022 03-22-2023 Chronic Genitourinary symptoms and ill-defined conditions (20 sources) History of recurrent urinary tract infection; Translations: [Personal history, urinary (tract) infection] Resolved: 10-29-2022 Episodic Headache; including migraine (20 sources) Migraine; Translations: [Migraine, unspecified, without mention of intractable migraine without mention of status migrainosus] Onset: 11-11-2022 Chronic Menstrual disorders (6 sources) Primary amenorrhea; Translations: [Primary amenorrhea] Onset: 08-24-2023 08-24-2023 Chronic Mood disorders (20 sources) Depressive disorder; Translations: [Depressive disorder, not elsewhere classified] Onset: 05-01-2022 03-22-2023 Chronic Nutritional deficiencies (7 sources) Vitamin D deficiency; Translations: [Vitamin D deficiency, unspecified] Onset: 04-01-2021 03-16-2023 Chronic Osteoarthritis (1 source) Polyosteoarthritis, unspecified; Translations: [Primary osteoarthritis involving multiple joints] Onset: 10-05-2023 Chronic Other aftercare (13 sources) Post-discharge follow-up; Translations: [Other follow-up examination] Episodic Other aftercare (1 source) terminologist (current) use of insulin; Translations: [Type 2 diabetes mellitus with diabetic neuropathy, with long-term current use of insulin (HCC)] Onset: 08-24-2023 Episodic Other circulatory disease (20 sources) Arteriovenous fistula; Translations: [Arteriovenous fistula, acquired] Onset: 11-11-2022 03-16-2023 Chronic Past or Other Problems Problem Classification Problem Date Documented Da te Episodic/Chronic Acute cerebrovascular disease (8 sources) Ischemic stroke; Translations: [Cerebral artery occlusion, unspecified with cerebral infarction] Onset: 11-11-2022 Resolved: 03-22-2023 03-22-2023 Chronic Results Test Name Value Interpretation Reference Range Facil ity Vital Signs Date Time Vital Sign Value Performing Clinician Facility 08-24-2023 09:04-0500 Body temperature 97.81 [degF] Xochitl Sheets DO Work Phone: [facility] 08-24-2023 09:04-0500 Diastolic blood pressure 78 mm[Hg] Xochitl Sheets DO Work Phone: [facility] 08-24-2023 09:04-0500 Heart rate 68 /min Xochitl Sheets DO Work Phone: [facility] 08-24-2023 09:04-0500 Respiratory rate 16 /min Xochitl Sheets DO Work Phone: [facility] 08-24-2023 09:04-0500 SaO2% (BldA) [Mass fraction] 99 % Xochitl Sheets DO Work Phone: [facility] 08-24-2023 09:04-0500 Systolic blood pressure 126 mm[Hg] Xochitl Sheets DO Work Phone: [facility] 06-18-2023 13:00-0400 Diastolic blood pressure 73 mm[Hg] Carolinesarah Sousa [facility] 06-18-2023 13:00-0400 Heart rate 75 /min Carolinesarah Sousa [facility] 06-18-2023 13:00-0400 Respiratory rate 18 /min Carolinesarah Sousa [facility] 06-18-2023 13:00-0400 SaO2% (BldA) [Mass fraction] 99 % Carolinesarah Sousa [facility] 06-18-2023 13:00-0400 Systolic blood pressure 181 mm[Hg] Caroline Sousa [facility] 06-18-2023 11:04-0400 Body height 170.1 cm Carolinesarah Sousa [facility] 06-18-2023 11:04-0400 Body temperature 97.88 [degF] Caroline Sousa [facility] 06-18-2023 11:04-0400 Body weight 126 kg Carolinesarah Sousa [facility] 03-16-2023 14:16-0400 Body height 170.2 cm Caroline Sousa DNA SEQUENCING ASSOCIATE-SUPERVISOR KNITTING Work Phone: [facility] 03-16-2023 14:16-0400 Body mass index (BMI) [Ratio] 44.58 kg/m2 Caroline Sousa DNA SEQUENCING ASSOCIATE-SUPERVISOR KNITTING Work Phone: [facility] 03-16-2023 14:16-0400 Body weight 129.1 kg Caroline Sousa DNA SEQUENCING ASSOCIATE-SUPERVISOR KNITTING Work Phone: [facility] 03-16-2023 14:16-0400 Diastolic blood pressure 80 mm[Hg] Caroline Sousa DNA SEQUENCING ASSOCIATE-SUPERVISOR KNITTING Work Phone: [facility] 03-16-2023 14:16-0400 Heart rate 89 /min Caroline Sousa DNA SEQUENCING ASSOCIATE-SUPERVISOR KNITTING Work Phone: [facility] 03-16-2023 14:16-0400 SaO2% (BldA) [Mass fraction] 99 % Caroline Sousa DNA SEQUENCING ASSOCIATE-SUPERVISOR KNITTING Work Phone: [facility] 03-16-2023 14:16-0400 Systolic blood pressure 130 mm[Hg] Caroline Sousa DNA SEQUENCING ASSOCIATE-SUPERVISOR KNITTING Work Phone: [facility] 10-29-2022 10:29-0500 Body height 170.18 cm Caroline Sousa Work Phone: [facility] 205 DO Work Phone: 10-29-2022 10:29-0500 Diastolic blood pressure 82 mm[Hg] Caroline Sousa Work Phone: [facility] 205 DO Work Phone: 10-29-2022 10:29-0500 Heart rate 71 /min Caroline Sousa Work Phone: [facility] 205 DO Work Phone: 10-29-2022 10:29-0500 SaO2% (BldA) [Mass fraction] 100 % Caroline Sousa Work Phone: [facility] 205 DO Work Phone: 10-29-2022 10:29-0500 Systolic blood pressure 132 mm[Hg] Caroline Sousa Work Phone: [facility] 205 DO Work Phone: 06-23-2022 13:10-0400 Body height 170.18 cm Caroline Sousa Work Phone: [facility] 205 DO Work Phone: 06-23-2022 13:10-0400 Body mass index (BMI) [Ratio] 47.24 kg/m2 Caroline Sousa Work Phone: [facility] 205 DO Work Phone: 06-23-2022 13:10-0400 Body surface area Derived from formula 2.41 m2 Caroline Sousa Work Phone: [facility] 205 DO Work Phone: 06-23-2022 13:10-0400 Body weight 136.8 kg Caroline Sousa Work Phone: [facility] 205 DO Work Phone: 06-23-2022 13:10-0400 Diastolic blood pressure 80 mm[Hg] Caroline Sousa Work Phone: [facility] 205 DO Work Phone: 06-23-2022 13:10-0400 Heart rate 68 /min Caroline Sousa Work Phone: [facility] 205 DO Work Phone: 06-23-2022 13:10-0400 Systolic blood pressure 132 mm[Hg] Caroline Sousa Work Phone: [facility] 205 DO Work Phone: 05-20-2022 11:53-0400 Body height 170.18 cm Caroline Sousa Work Phone: [facility] Work Phone: 05-20-2022 11:53-0400 Body mass index (BMI) [Ratio] 35.42 kg/m2 Caroline Sousa Work Phone: [facility] Work Phone: 05-20-2022 11:53-0400 Body surface area Derived from formula 2.13 m2 Caroline Sousa Work Phone: [facility] Work Phone: 05-20-2022 11:53-0400 Body weight 102.57 kg Caroline [facility]ousa [facility] Work Phone: 05-20-2022 11:53-0400 Diastolic blood pressure 84 mm[Hg] Caroline Sousa [facility] Work Phone: 05-20-2022 11:53-0400 Heart rate 74 /min Caroline Sousa [facility] Work Phone: 05-20-2022 11:53-0400 SaO2% (BldA) [Mass fraction] 99 % Caroline Sousa Work Phone: [facility] Work Phone: 05-20-2022 11:53-0400 Systolic blood pressure 144 mm[Hg] Caroline Sousa Work Phone: [facility] Work Phone: Encounters Encounter Date Encounter Type Care Provider Facility Start: 10-05-2023 End: 10-05-2023 ambulatory XOCHITL C SHEETS Facility:[facility] Start: 09-02-2023 Refill Xochitl So She ets DO Work Phone: [facility] Procedures Date Procedure Procedure Detail Performing Clinician Start: 04-20-2022 Colonoscopy Caroline bosch DNA SEQUENCING ASSOCIATE-SUPERVISOR KNITTING Work Phone: Amputation of toe Caroline segovia Work Phone: Arteriovenous anastomosis Andrea Sousa Work Phone: Biopsy of liver Caroline bosch Work Phone: Biopsy of thyroid Caroline segovia Work Phone: Cardiac cath His ablation Andrea Sousa Work Phone: section Caroline call Work Phone: Laparoscopic cholecystectomy Caroline Sousa Work Phone: Lumpectomy of breast Caroline Sousa Work Phone: Operative procedure on foot Caroline Sousa Work Phone: Operative procedure on knee Caroline Sousa Work Phone: Repair of shoulder Caroline Monique Chanelle mayer Work Phone: Thoracentesis Caroline Sousa Work Phone: Plan of Treatment Date Care Activity Detail Author Start: 04-20-2032 Screening for malign ant neoplasm of colon [facility] Start: 2026 Shingrix Vaccine (1 of 2) Shingrix Vaccine (1 of 2) [facility] Start: 2026 Zoster Vaccines (1 of 2) Zoste r Vaccines (1 of 2) [facility] Start: 08-24-2024 Annual PCP Team Parts Classifier genoveva Disease Visit Annual PCP Team Chronic Disease Visit [facility] Start: 08-24-2024 BP Controlled (<130/80) BP Con trolled (<130/80) [facility] Start: 08-24-2024 Urine microalbumin profile DTaP,Tdap,Td Vaccine (1 - Tdap) [facility] Immunizations Immunization Date Immunization Notes Care Provider Guillermina link 08-04-2023 Influenza, injectabl e, [place] Canine Kidney, quadrivalent with preservative Xochitl Sheets DO Work Phone: [facility] 11-16-2022 Hepatitis B vaccine (recombinant), CpG adjuvanted Carolinesarah Sousa DNA SEQUENCING ASSOCIATE-SUPERVISOR KNITTING Work Phone: [facility] Work Phone: 09-15-2022 Hepatitis B vaccine (recombinant), CpG adjuvanted Caroline Sousa DNA SEQUENCING ASSOCIATE-SUPERVISOR KNITTING Work Phone: [facility] Work Phone: 08-17-2022 Hepatitis B vaccine (recombinant), CpG adjuvanted Caroline Sousa DNA SEQUENCING ASSOCIATE-SUPERVISOR KNITTING Work Phone: [facility] Work Phone: 08-17-2022 Pneumococcal Conjuga te Pcv 20 Caroline Sousa DNA SEQUENCING ASSOCIATE-SUPERVISOR KNITTING Work Phone: [facility] Work Phone: 07-20-2022 Hepatitis B vaccine (recombinant), CpG adjuvanted Caroline Sousa DNA SEQUENCING ASSOCIATE-SUPERVISOR KNITTING Work Phone: [facility] Work Phone: 07-04-2022 influenza, injectabl e, quadrivalent, preservative free Xochitl Sheets DO Work Phone: [facility] 07-04-2022 influenza, seasonal, injectable Xochitl Sheets DO Work Phone: [facility] 06-22-2022 influenza, injectabl e, quadrivalent, preservative free Caroline Sousa DNA SEQUENCING ASSOCIATE-SUPERVISOR KNITTING Work Phone: [facility] Work Phone: Payers Date Payer Category Payer Medicaid [id number] 2022 Medicaid [id number] 2015 Medicare [id number] 2015 Medicare [id number] 1975 Unknown [id number] 1976 Unknown [id number] 2.16. [id number] 1976 Unknown [id number] 2.16. [id number] 1976 Unknown [id number] 2.16. [id number] 1976 Unknown [id number] 2. [id number] 1976 Unknown [id number] 2.16. [id number] 1976 Unknown [id number] 2.16. [id number] 1976 Unknown [id number] 2.16. [id number] Unknown Social History Date Type Detail Facility Start: 03-16-2023 End: 08-24-2023 Non-smoker Non-smoker [facility] Work Phone: Tobacco smoking status [facility] Tobacco smoking consumption unknown [facility] Start: 1975 Sex Assigned At Not on file O [facility] Start: 03-16-2023 End: 08-24-2023 Tobacco smoking status NHIS Ex-smoker [facility] Work Phone: End: 10-04-1994 History of tobacco use Current smoker [facility] Work Phone: End: 10-04-1994 History of tobacco use Cigarette Smoker [facility] Work Phone: Start: 03-16-2023 End: 08-24-2023 Tobacco use and exposure Smokeless tobacco non-user [facility] Work Phone: Start: 03-16-2023 End: 08-24-2023 Tobacco use panel [facility] Work Phone: Start: 2023 End: 03-16-2023 Exposure to SARS-CoV-2 (event) Not sure [facility] Start: 08-24-2023 Alcohol intake Ex-drinker (finding) [facility] National Score (1-100), lower number is lower risk 89 [facility] Clinical Notes 05-15-2022 to 10-05-2023 Telephone Encounter - Magui Vazquez MA - 09/02/2023 4:40 PM ESTTelephone Encounter - Xochitl Peters DO - 09/02/2023 10:40 AM ESTTelephone Encounter - Laura Oconnell MA - 08/25/2023 7:43 AM EST Note Date & Type Note Facility 10-05-2023 Note HNO ID: [id number] Author: Xochitl Peters, DO Service: ? Author Type: Physician Type: Progress Notes Filed: 10/05/2023 10:50 AM Note Text: Subjective HPI Pt is here for f/u for neuropathy She takes gabapentin 300 mg daily at bedtime and norco twice a day as needed She is under the care of [facility] She has a history of ARIAN She uses CPAP nightly She has a persistent cough She was seen in the ED on 09/06 She was treated for bronchitis with doxycycline She is better, but still has a persistent cough She was vomiting yesterday, had some blood in the emesis She now has a hoarse voice She has a history of heart failure She has a hospital bed so that she can sit up at night She is taking bumex 1 mg daily She has left drop foot She wears an ankle brace She quit smoking in 1994 ALLERGIES Allergen Reactions Bacitracin Other: See Comments Benzoyl Peroxide Other: See Comments Bleach (Sodium Hypo* Other: See Comments Chloral Betaine Other: See Comments Chlora prep Latex Other: See Comments Lidocaine Other: See Comments Metformin Diarrhea, GI Upset Neosporin [Benzalko* Other: See Comments Rubbing Alcohol (Et* Other: See Comments Sulfa (Sulfonamide * Hives, Swelling Zofran [Ondansetron] Other: See Comments constipation Current Outpatient Medications Medication Sig Dispense Refill promethazine (PHENERGAN) 25 mg tablet Take 25 mg by mouth every 8 hours as needed for nausea/vomiting. albuterol HFA (PROVENTIL HFA, VENTOLIN HFA) 90 mcg/actuation inhaler Inhale 2 Puffs as instructed every 4 hours as needed for wheezing/shortness of breath. diclofenac XR (VOLTAREN-XR) 100 mg Tb24 Take 100 mg by mouth once daily. ammonium lactate (LAC-HYDRIN) 12 % lotion Apply to affected area as needed. sucroferric oxyhydroxide (VELPHORO) 500 mg chew Take 500 mg by mouth with meals. gabapentin (NEURONTIN) 300 mg capsule Take 300 mg by mouth daily at bedtime. folic acid/vit B complex and C (NEPHRO-SISSY ORAL) Take 1 tablet by mouth once daily. amLODIPine (NORVASC) 5 mg tablet Take 5 mg by mouth once daily. ergocalciferol, vitamin D2, (VITAMIN D2 ORAL) Take by mouth. Given at dialysis unsure of dose albuterol (PROVENTIL) 2.5 mg /3 mL (0.083 %) nebulizer solution sucralfate (CARAFATE) 1 gram tablet Take 1 g by mouth three times a day. HYDROcodone-Acetaminophen (NORCO) 7.5-325 mg per tablet Take 1 tablet by mouth two times a day as needed for pain. Senna 8.6 mg tab Take 8.6 mg by mouth two times a day. polyethylene glycol 3350 (MIRALAX ORAL) Take by mouth. As needed insulin aspart U-100 (NOVOLOG FLEXPEN U-100 INSULIN) 100 unit/mL (3 mL) Inject 10 Units subcutaneously three times a day before meals. Plus sliding scale 5 units 0-150, 10 units 150-200, 15 units 200-300 insulin detemir U-100 (LEVEMIR FLEXPEN) 100 unit/mL (3 mL) injection pen Inject 26 Units subcutaneously daily at bedtime. OXYGEN, HOME THERAPY, 2 L/min by Nasal Cannula route. At night uses [facility] [phone] losartan (COZAAR) 100 mg tablet Take 1 tablet by mouth once daily. 30 tablet 2 lamoTRIgine orally disintegrating (LAMICTAL ODT) 50 mg disintegrating tablet Take 1 tablet by mouth once daily. 30 tablet 2 Cetirizine 10 mg cap Take 1 capsule by mouth once daily. 30 capsule 2 atorvastatin (LIPITOR) 40 mg tablet Take 1 tablet by mouth once daily. 30 tablet 2 tamsulosin (FLOMAX) 0.4 mg Take 1 capsule by mouth once daily. 30 capsule 2 bumetanide (BUMEX) 1 mg tablet Take 1 tablet by mouth once daily. 30 tablet 2 dicyclomine (BENTYL) 10 mg capsule Take 1 capsule by mouth two times a day. [address] (PROTONIX) 40 mg tablet Take 1 tablet by mouth once daily. 30 tablet 2 aspirin, enteric coated (ASPIRIN, ENTERIC COATED) 81 mg EC tablet Take 1 tablet by mouth once daily. 30 tablet 2 levothyroxine (SYNTHROID) 25 mcg tablet Take 1 tablet by mouth daily before breakfast. 90 tablet 1 LACTULOSE ORAL Take by mouth. (Patient not taking: Reported on 10/05/2023) No current facility-administered medications for this visit. ACTIVE PROBLEM LIST Esrd Needing Dialysis (Hcc) Vascular Dialysis Catheter in Place (Hcc) Av Fistula (Hcc) Hyperlipidemia, Mixed Seasonal Allergies Gerd Without Esophagitis Vitamin D Deficiency Type 2 Diabetes Mellitus With Diabetic Neuropathy, With Long-Term Current Use of Insulin (Hcc) Foot Drop, Left Foot Ulcer of Left Heel and Midfoot (Hcc) Primary Amenorrhea Wheelchair Dependent Other Irritable Bowel Syndrome Diabetic Gastroparesis (Hcc) (Hcc) Mild Intermittent Asthma, Uncomplicated History of Cva (Cerebrovascular Accident) Primary Hypertension Recurrent Major Depressive Disorder, in Partial Remission ([facility]) Nocturnal Dyspnea Social History Tobacco Use Smoking status: Former Types: Cigarettes Quit date: 1994 Years since quittin.0 Smokeless tobacco: Never Substance Use Topics Alcohol use: Not Cu (more content not included)... [facility] 09-02-2023 Miscellaneous Notes Patient states that she had her TSH checked 3 months ago but she doesn't remember results. Magui Vazquez MA Please find out from pt when she last had her TSH checked. Thanks Xochitl Peters DO pharmacy faxes requesting refills as follows: Last seen 08/24/23 . Last refill previous pcp . Requested Prescriptions Pending Prescriptions Disp Refills levothyroxine (SYNTHROID) 25 mcg tablet 90 tablet 1 Sig: Take 1 tablet by mouth daily before breakfast. Please review and advise. Chela Davidson MA documented in this encounter [facility] 08-25-2023 Miscellaneous Notes Lm on pt. Vm test negative. (Ok per lifetime consent). Laura Oconnell MA ----- Message from Xochitl Peters DO sent at 08/24/2023 8:54 PM EST ----- Please notify pt her test was negative Xochitl Peters DO documented in this encounter [facility] 08-24-2023 Miscellaneous Notes Signed by Dr. Peters and faxed back to [phone]. Chela Davidson MA [facility] for Oxygen Supplies placed in Dr. Peters green folder to be signed. Chela Davidson MA documented in this encounter [facility] 08-24-2023 Note HNO ID: [id number] Author: Xochitl Peters DO Service: ? Author Type: Physician Type: Progress Notes Filed: 09/04/2023 12:37 PM Note Text: SUBJECTIVE: 48 year old female here to establish. I have fully reviewed the past medical, surgical, social and family history and updated the Histories section of [facility]. Her former PCP was Ramona Anaya in [place]. Pt has a history of ESRD needing dialysis, IBS, diabetic gastroparesis, mixed hyperlipidemia, seasonal allergies, GERD, primary hypertension, vitamin d deficiency, DMII, history of CVA, major recurrent depression, neuropathy, respiratory failure, mild intermittent asthma, nocturnal hypoxia. She lives with her daughter and her family, and her daughter is her caregiver. She developed diabetes when she was , and believes she has DMII, but may have DMI. She sees [place] [facility] She has chronic pain, and is under the care of [place] [facility] She had a diabetic ulcer 4 years ago Since then she had removal of the left fifth metatarsal and left fifth toe She now has drop foot on the left, and has to wear a brace She sees [facility] in [place], who does her diabetic foot care Her foot ulcer just closed 2 weeks ago She will f/u with them on 09/16 She uses a wheelchair 95% of time She was bedridden for 2 years because of her left foot ulcers She now uses an electric wheelchair at home, and a manual wheelchair here. She was in the [place] ED on Wednesday She is on Keflex 500 mg qid for UTI, which she just started She had a positive urine test at the ED, but she has not had sexual intercourse in over 20 years. She was told by her former PCP that she needed to f/u with [facility] to confirm if this is accurate. She was born with kidney and bladder issues She has oliguria and problems with swelling. She urinates only twice a day No LMP recorded. ALLERGIES Allergen Reactions Bacitracin Other: See Comments Benzoyl Peroxide Other: See Comments Bleach (Sodium Hypo* Other: See Comments Chloral Betaine Other: See Comments Chlora prep Latex Other: See Comments Lidocaine Other: See Comments Metformin Diarrhea, GI Upset Neosporin [Benzalko* Other: See Comments Rubbing Alcohol (Et* Other: See Comments Sulfa (Sulfonamide * Hives, Swelling Zofran [Ondansetron] Other: See Comments constipation Current Outpatient Medications Medication Sig Dispense Refill gabapentin (NEURONTIN) 300 mg capsule Take 300 mg by mouth daily at bedtime. atorvastatin (LIPITOR) 40 mg tablet Take 40 mg by mouth once daily. bumetanide (BUMEX) 1 mg tablet Take 1 mg by mouth once daily. lamoTRIgine orally disintegrating (LAMICTAL ODT) 50 mg disintegrating tablet Take 50 mg by mouth once daily. Cetirizine 10 mg cap Take 1 capsule by mouth once daily. promethazine HCl (PHENERGAN ORAL) Take by mouth. tamsulosin (FLOMAX) 0.4 mg Take 0.4 mg by mouth once daily. dicyclomine (BENTYL) 10 mg capsule Take 10 mg by mouth two times a day. pantoprazole DR (PROTONIX) 40 mg tablet Take 40 mg by mouth once daily. aspirin, enteric coated (ASPIRIN, ENTERIC COATED) 81 mg EC tablet Take 81 mg by mouth once daily. folic acid/vit B complex and C (NEPHRO-SISSY ORAL) Take 1 tablet by mouth once daily. amLODIPine (NORVASC) 5 mg tablet Take 5 mg by mouth once daily. losartan (COZAAR) 100 mg tablet Take 100 mg by mouth once daily. ergocalciferol, vitamin D2, (VITAMIN D2 ORAL) Take by mouth. Given at dialysis unsure of dose albuterol (PROVENTIL) 2.5 mg /3 mL (0.083 %) nebulizer solution VENTOLIN HFA 90 mcg/actuation inhaler sucralfate (CARAFATE) 1 gram tablet Take 1 g by mouth four times daily. HYDROcodone-Acetaminophen (NORCO) 7.5-325 mg per tablet Take 1 tablet by mouth two times a day as needed for pain. LACTULOSE ORAL Take by mouth. Senna 8.6 mg tab Take 8.6 mg by mouth two times a day. polyethylene glycol 3350 (MIRALAX ORAL) Take by mouth. insulin aspart U-100 (NOVOLOG FLEXPEN U-100 INSULIN) 100 unit/mL (3 mL) Inject 15 Units subcutaneously three times a day before meals. Plus sliding scale 5 units 0-150, 10 units 150-200, 15 units 200-300 insulin detemir U-100 (LEVEMIR FLEXPEN) 100 unit/mL (3 mL) injection pen Inject 22 Units subcutaneously daily at bedtime. OXYGEN, HOME THERAPY, 2 L/min by Nasal Cannula route. At night uses [facility] No current facility-administered medications for this visit. ACTIVE PROBLEM LIST Esrd Needing Dialysis (Hcc) Vascular Dialysis Catheter in Place (Hcc) Av Fistula (Hcc) Social History Tobacco Use Smoking status: Former Types: Cigarettes Quit date: 1994 Years since quittin.9 Smokeless tobacco: Never Substance Use Topics Alcohol use: Not Currently Drug use: Never Family History Problem Relation Age of Onset Diabetes Mother Hypertension Mother Hyperlipidemia Mother Stroke Mother Stroke Father Hypertension Father Diabetes Father Diabetes Mate (more content not included)... [facility] 08-24-2023 History of Presen t illness Narrative SUBJECTIVE: 48 year old female here to establish. I have fully reviewed the past medical, surgical, social and family history and updated the Histories section of [facility]. Her former PCP was Ramona Anaya in [place]. Pt has a history of ESRD needing dialysis, IBS, diabetic gastroparesis, mixed hyperlipidemia, seasonal allergies, GERD, primary hypertension, vitamin d deficiency, DMII, history of CVA, major recurrent depression, neuropathy, respiratory failure, mild intermittent asthma, nocturnal hypoxia. She lives with her daughter and her family, and her daughter is her caregiver. She developed diabetes when she was , and believes she has DMII, but may have DMI. She sees [place] [facility] She has chronic pain, and is under the care of [place] [facility] She had a diabetic ulcer 4 years ago Since then she had removal of the left fifth metatarsal and left fifth toe She now has drop foot on the left, and has to wear a brace She sees [facility] in [place], who does her diabetic foot care Her foot ulcer just closed 2 weeks ago She will f/u with them on 09/16 She uses a wheelchair 95% of time She was bedridden for 2 years because of her left foot ulcers She now uses an electric wheelchair at home, and a manual wheelchair here. She was in the [place] ED on Wednesday She is on Keflex 500 mg qid for UTI, which she just started She had a positive urine test at the ED, but she has not had sexual intercourse in over 20 years. She was told by her former PCP that she needed to f/u with [facility] to confirm if this is accurate. She was born with kidney and bladder issues She has oliguria and problems with swelling. She urinates only twice a day No LMP recorded. ALLERGIES Allergen Reactions Bacitracin Other: See Comments Benzoyl Peroxide Other: See Comments Bleach (Sodium Hypo* Other: See Comments Chloral Betaine Other: See Comments Chlora prep Latex Other: See Comments Lidocaine Other: See Comments Metformin Diarrhea, GI Upset Neosporin [Benzalko* Other: See Comments Rubbing Alcohol (Et* Other: See Comments Sulfa (Sulfonamide * Hives, Swelling Zofran [Ondansetron] Other: See Comments constipation Current Outpatient Medications Medication Sig Dispense Refill gabapentin (NEURONTIN) 300 mg capsule Take 300 mg by mouth daily at bedtime. atorvastatin (LIPITOR) 40 mg tablet Take 40 mg by mouth once daily. bumetanide (BUMEX) 1 mg tablet Take 1 mg by mouth once daily. lamoTRIgine orally disintegrating (LAMICTAL ODT) 50 mg disintegrating tablet Take 50 mg by mouth once daily. Cetirizine 10 mg cap Take 1 capsule by mouth once daily. promethazine HCl (PHENERGAN ORAL) Take by mouth. tamsulosin (FLOMAX) 0.4 mg Take 0.4 mg by mouth once daily. dicyclomine (BENTYL) 10 mg capsule Take 10 mg by mouth two times a day. pantoprazole DR (PROTONIX) 40 mg tablet Take 40 mg by mouth once daily. aspirin, enteric coated (ASPIRIN, ENTERIC COATED) 81 mg EC tablet Take 81 mg by mouth once daily. folic acid/vit B complex and C (NEPHRO-SISSY ORAL) Take 1 tablet by mouth once daily. amLODIPine (NORVASC) 5 mg tablet Take 5 mg by mouth once daily. losartan (COZAAR) 100 mg tablet Take 100 mg by mouth once daily. ergocalciferol, vitamin D2, (VITAMIN D2 ORAL) Take by mouth. Given at dialysis unsure of dose albuterol (PROVENTIL) 2.5 mg /3 mL (0.083 %) nebulizer solution VENTOLIN HFA 90 mcg/actuation inhaler sucralfate (CARAFATE) 1 gram tablet Take 1 g by mouth four times daily. HYDROcodone-Acetaminophen (NORCO) 7.5-325 mg per tablet Take 1 tablet by mouth two times a day as needed for pain. LACTULOSE ORAL Take by mouth. Senna 8.6 mg tab Take 8.6 mg by mouth two times a day. polyethylene glycol 3350 (MIRALAX ORAL) Take by mouth. insulin aspart U-100 (NOVOLOG FLEXPEN U-100 INSULIN) 100 unit/mL (3 mL) Inject 15 Units subcutaneously three times a day before meals. Plus sliding scale 5 units 0-150, 10 units 150-200, 15 units 200-300 insulin detemir U-100 (LEVEMIR FLEXPEN) 100 unit/mL (3 mL) injection pen Inject 22 Units subcutaneously daily at bedtime. OXYGEN, HOME THERAPY, 2 L/min by Nasal Cannula route. At night uses [facility] No current facility-administered medications for this visit. ACTIVE PROBLEM LIST Esrd Needing Dialysis (Hcc) Vascular Dialysis Catheter in Place (Hcc) Av Fistula (Hcc) Social History Tobacco Use Smoking status: Former Types: Cigarettes Quit date: 1994 Years since quittin.9 Smokeless tobacco: Never Substance Use Topics Alcohol use: Not Currently Drug use: Never Family History Problem Relation Age of Onset Diabetes Mother Hypertension Mother Hyperlipidemia Mother Stroke Mother Stroke Father Hypertension Father Diabetes Father Diabetes Maternal Grandmother Colon Cancer Maternal Grandmother Diabetes Maternal Grandfather Heart Attack Paternal Grandmother Diabetes Paternal Grandmother Diabetes Paternal Grandfather Heart Attack Maternal Aunt Cancer Maternal Aunt Heart Attack Paternal Aunt Reviewed past medical history, family history and surgeries. All medications and supplements were reviewed with the patient. REVIEW OF SYSTEMS GENERAL: No weight loss, malaise or fevers HEENT: Negative for frequent or significant headaches, No changes in hearing or vision, no nose bleeds or other nasal problems NECK: Negative for lumps, goiter, pain and significant neck swelling RESPIRATORY: Negative for cough, hemoptysis, wheezing, COPD, dyspnea or shortness of breath CARDIOVASCULAR: Negative for chest pain, leg swelling, hypertension, CHF or palpitations GI: No nausea, vomiting, or diarrhea : No history of dysuria, frequency or incontinence MUSCULOSKELETAL: Negative for joint pain or swelling, back pain or muscle pain SKIN: Negative for lesions, rash, and itching PSYCH: Negative for sleep disturbance, mood disorder and recent psychosocial stressors HEMATOLOGY/LYMPHOLOGY: Negative for prolonged bleeding, bruising easily or swollen nodes ENDOCRINE: Negative for cold or heat intolerance, polyuria, polydipsia and goiter NEURO: No history of headaches, syncope, paralysis, seizures or tremors PHYSICAL EXAMINATION: BP 126/78 Pulse 68 Temp 36.6 C (97.8 F) Resp 16 SpO2 99% General appearance: Well appearing, alert, in no acute distress, well-hydrated, obese. Skin: Skin color, texture, turgor normal, no suspicious rashes or lesions Head: Normocephalic, no masses, lesions, tenderness or abnormalities Eyes: Anicteric sclera. Pupils are equally round and reactive to light. Extraocular movements are intact. Ears: External ears normal, canals clear Nose/Sinuses: Nares normal, septum midline, mucosa normal, no drainage or sinus tenderness Oropharynx: Lips, mucosa, and tongue normal, teeth and gums normal, oropharynx normal Neck: Supple, no adenopathy; thyroid symmetric, normal size, no bruits Back: Normal exam Lungs: Lungs clear to auscultation. No wheezing, rhonchi, rales. Heart: RRR without murmur, gallop, or rubs. No ectopy Abdomen: Normal abdominal exam, Abdomen soft, non-tender. Bowel sounds normal. No masses, organomegaly Extremities: No deformities, edema, skin discoloration, clubbing or cyanosis. Good capillary refill. Musculoskeletal: brace on left ankle Peripheral pulses: Normal Neuro: In wheelchair. ASSESSMENT/PLAN: 1. Type 2 diabetes mellitus with diabetic neuropathy, with long-term current use of insulin ([facility]) - ICD9: 250.60, 357.2, V58.67, ICD10: E11.40, Z79.4 (primary diagnosis) Continue current meds 2. ESRD needing dialysis ([facility]) - ICD9: 585.6, ICD10: N18.6, Z99.2 Under the care of project coordinator rn 3. Primary hypertension - ICD9: 401.9, ICD10: I10 controlled 4. Vascular dialysis catheter in place ([facility]) - ICD9: V45.11, ICD10: Z99.2 5. AV fistula ([facility]) - ICD9: 447.0, ICD10: I77.0 6. Hyperlipidemia, mixed - ICD9: 272.2, ICD10: E78.2 Continue lipitor 40 mg daily 7. Seasonal allergies - ICD9: 477.9, ICD10: J30.2 8. GERD without esophagitis - ICD9: 530.81, ICD10: K21.9 9. Vitamin D deficiency - ICD9: 268.9, ICD10: E55.9 10. Primary amenorrhea - ICD9: 626.0, ICD10: N91. Pt had positive urine test in the ED Needs to have confirming test - HCG QUAL UR B/O - HCG QUAL BLD 11. Foot drop, left foot - ICD9: 736.79, ICD10: M21.372 Wears ankle brace 12. Wheelchair dependent - ICD9: V46.3, ICD10: Z99.3 13. Other irritable bowel syndrome - ICD9: 564.1, ICD10: K58.8 14. Diabetic gastroparesis (HCC) - ICD9: 250.60, 536.3, ICD10: E11.43, K31.84 15. Mild intermittent asthma, uncomplicated - ICD9: 493.90, ICD10: J45.20 16. History of CVA (cerebrovascular accident) - ICD9: V12.54, ICD10: Z86.73 17. Recurrent major depressive disorder, in partial remission (HCC) - ICD9: 296.35, ICD10: F33.41 18. Nocturnal hypoxia - ICD9: 327.24, ICD10: G47.34 19. Encounter for screening mammogram for breast cancer - ICD9: V76.12, ICD10: Z12.31 - RAMBO SCREENING 20. Left foot drop - ICD9: 736.79, ICD10: M21.372 Rx for shoes for ankle braces to Mu Peters DO I spent 45 minutes in the visit, with more than 50% of the total [id number] time of the visit in counseling / coordination of care. documented in this encounter [facility] 03-22-2023 Evaluation + Plan note Associated Problem(s): Wound of left foot Sees podiatry on Wednesday [facility] Work Phone: 03-22-2023 Evaluation + Plan note Associated Problem(s): Gastroparesis Promethazine 25 mg every 8 hours as needed for N&V- refilled Sees GI in [place] [facility] Work Phone: 03-22-2023 Miscellaneous Notes Associated Problem(s): Wound of left foot Sees podiatry on Wednesday Associated Problem(s): Gastroparesis Promethazine 25 mg every 8 hours as needed for N&V- refilled Sees GI in [place] Associated Problem(s): Benign essential hypertension BP is <130/80. Continue to take medications as prescribed. Continue diet (low salt) and exercise as advised. Associated Problem(s): AV fistula ([facility]) Managed by nephrology [place] Associated Problem(s): Class 3 severe obesity due to excess calories with serious comorbidity and body mass index (BMI) of 40.0 to 44.9 in adult ([facility]) Pt advised to institute a healthy, well-balanced meal with portion control and to exercise daily for at least 30-60 minutes. Associated Problem(s): Type 2 diabetes mellitus with circulatory disorder, with long-term current use of insulin ([facility]) [facility] in [place] Associated Problem(s): Mild intermittent asthma without complication Albuterol inhaler/nebulizer- refilled Associated Problem(s): End stage renal disease ([facility]) Goes to dialysis 3 x week. documented in this encounter [facility] Work Phone: 03-22-2023 Evaluation + Plan note Associated Problem(s): Benign essential hypertension BP is <130/80. Continue to take medications as prescribed. Continue diet (low salt) and exercise as advised. [facility] Work Phone: 03-22-2023 Evaluation + Plan note Associated Problem(s): AV fistula ([facility]) Managed by nephrology [place] [facility] Work Phone: 03-22-2023 Evaluation + Plan note Associated Problem(s): Class 3 severe obesity due to excess calories with serious comorbidity and body mass index (BMI) of 40.0 to 44.9 in adult ([facility]) Pt advised to institute a healthy, well-balanced meal with portion control and to exercise daily for at least 30-60 minutes. [facility] Work Phone: 03-16-2023 Evaluation + Plan note Associated Problem(s): Type 2 diabetes mellitus with circulatory disorder, with long-term current use of insulin ([facility]) [facility] [place] [facility] Work Phone: 03-16-2023 Evaluation + Plan note Associated Problem(s): Mild intermittent asthma without complication Albuterol inhaler/nebulizer- refilled [facility] Work Phone: 03-16-2023 Evaluation + Plan note Associated Problem(s): End stage renal disease ([facility]) Goes to dialysis 3 x week. [facility] Work Phone: 03-16-2023 History of Presen t illness Narrative Subjective Patient ID: Xochitl Cherry is a 48 y.o. female who presents for [place] discharge follow up; med review and refills. KATHERINE Neri returns for [place] discharge follow up. She reports she was in the [facility] for deconditioning after getting her fistula revised and spending several days in the hospital, she was unable to do stairs so they wouldn't let her go home. She is currently living with her cousins in a house with 17 other people. She is currently trying to find an apartment for herself and her daughter who just moved to the area to help her out. [facility] for PT/OT. DM: follows with Dr. Brady-endocrinology in [place]. Asthma/intermittent: Uses albuterol inhaler as needed. Denies shortness of breath. Headaches/migraines: still has not seen neurology. States, wasn't able to make it to the appointment because of my cousins schedules and I was dependent on them for a ride, and then I've been in and out of the hospital d/t my dialysis fistula not working and had to keep getting it redone. Is asking for something for her headaches as the hospital took her off her triptans d/t having another stroke again a couple months ago. Blister on foot: has appt with podiatry on Wednesday. Pain mgmt on March 22 or . Review of Systems Constitutional: Negative for fatigue. Respiratory: Negative for chest tightness and shortness of breath. Cardiovascular: Positive for leg swelling. Negative for chest pain and palpitations. Gastrointestinal: Negative for abdominal pain, blood in stool, constipation, diarrhea, nausea and vomiting. Genitourinary: Negative for dysuria. Musculoskeletal: Negative for arthralgias and myalgias. Skin: Negative for color change. Neurological: Positive for headaches. Negative for dizziness and light-headedness. Psychiatric/Behavioral: Positive for dysphoric mood and sleep disturbance. Negative for behavioral problems, decreased concentration, self-injury and suicidal ideas. The patient is not nervous/anxious. Objective Vitals: 03/16/23 1416 BP: 130/80 BP Location: Right arm Pulse: 89 SpO2: 99% Weight: 129 kg (284 lb 9.8 oz) Height: 1.702 m (5' 7 ) Physical Exam Vitals and nursing note reviewed. Constitutional: Comments: Uses wheelchair for mobility d/t weakness HENT: Head: Normocephalic and atraumatic. Cardiovascular: Rate and Rhythm: Normal rate and regular rhythm. Pulses: Normal pulses. Heart sounds: Normal heart sounds. Arteriovenous access: Left arteriovenous access is present. Comments: Fistula left upper arm Pulmonary: Effort: Pulmonary effort is normal. Breath sounds: Normal breath sounds. Abdominal: General: Bowel sounds are normal. Palpations: Abdomen is soft. Musculoskeletal: Right lower le+ Pitting Edema present. Left lower le+ Pitting Edema present. Comments: Left lower leg has brace on Skin: General: Skin is warm and dry. Neurological: General: No focal deficit present. Mental Status: She is alert and oriented to person, place, and time. Mental status is at baseline. Psychiatric: Mood and Affect: Mood normal. Behavior: Behavior normal. Thought Content: Thought content normal. Judgment: Judgment normal. Assessment/Plan Diagnoses and all orders for this visit: Mild intermittent asthma without complication - albuterol (Ventolin HFA) 90 mcg/actuation inhaler; Inhale 2 puffs every 6 hours if needed for wheezing. - albuterol 2.5 mg /3 mL (0.083 %) nebulizer solution; Take 3 mL (2.5 mg) by nebulization every 4 hours if needed for wheezing. USE 1 UNIT DOSE EVERY 4-6 HOURS NEEDED FOR WHEEZING . Gastroparesis - promethazine (Phenergan) 25 mg tablet; Take 1 tablet (25 mg) by mouth every 8 hours if needed for nausea or vomiting. End stage renal disease ([facility]) Chronic migraine without aura without status migrainosus, not intractable Type 2 diabetes mellitus with other circulatory complication, with long-term current use of insulin ([facility]) Current mild episode of major depressive disorder without prior episode ([facility]) AV fistula ([facility]) Benign essential hypertension Class 3 severe obesity due to excess calories with serious comorbidity and body mass index (BMI) of 40.0 to 44.9 in adult ([facility]) Problem List Items Addressed This Visit AV fistula ([facility]) Managed by nephrology jonathan Benign essential hypertension BP is <130/80. Continue to take medications as prescribed. Continue diet (low salt) and exercise as advised. Current mild episode of major depressive disorder without prior episode ([facility]) End stage renal disease ([facility]) Goes to dialysis 3 x week. Gastroparesis Promethazine 25 mg every 8 hours as needed for N&V- refilled Sees GI in [place] Relevant Medications promethazine (Phenergan) 25 mg tablet Migraines Mild intermittent asthma without complication - Primary Albuterol inhaler/nebulizer- refilled Relevant Medications albuterol (Ventolin HFA) 90 mcg/actuation inhaler albuterol 2.5 mg /3 mL (0.083 %) nebulizer solution Type 2 diabetes mellitus with circulatory disorder, with long-term current use of insulin ([facility]) [facility] in [place] Class 3 severe obesity due to excess calories with serious comorbidity and body mass index (BMI) of 40.0 to 44.9 in adult ([facility]) Pt advised to institute a healthy, well-balanced meal with portion control and to exercise daily for at least 30-60 minutes. Follow up in October for Medicare wellness exam. Gets labs done at dialysis and endocrinology. documented in this encounter [facility] Work Phone: 03-16-2023 Instructions SUSANNA Cavanaugh - 03/16/2023 2:00 PM EDT BMI was above normal measurement. Current weight: Weight change since last visit (-) denotes wt loss Weight loss needed to achieve BMI 25: Lbs Weight loss needed to achieve BMI 30: Lbs Provided instructions on dietary changes Provided instructions on exercise documented in this encounter [facility] Work Phone: 09-07-2022 History of Presen t illness Narrative Halle returns for hospital follow up and renewal of [facility] services.November 12 [place] seeing [place] or vitamin [place] as she gets these at dialysis.Was last in September 07 and then went to prison for 21 days and then came out on September 26.Neurology: has not been seen/ Was to follow up but did not hear from anyone.may need fistula replaced. has consult today in [place].Polyneuropathy: needs refill on Gabapentin 300 mg at night.Dysphagia: has difficulty swallowing since having stroke. She reports she will have to struggle to swallow sometimes even water. Sometimes has difficulty swallowing medications as well. Has been getting abdominal pain and with drinking coffee. She has been taking Pepto Bismol for the pain along with her other GI medications.Physical therapy: just finished in home therapy and was told to continue outpatient therapyAV fistula: will be getting rechecked today. Possible surgery to have another one placed. [place] [facility] [address] DO Work Phone: 09-07-2022 History of Presen t illness Narrative Halle returns for hospital follow up and renewal of [facility] services.November 12 is seeing Endocrinology [place] iron or vitamin d as she gets these at dialysis.Was last in September 07 and then went to prison for 21 days and then came out on September 26.Neurology: has not been seen/ Was to follow up but did not hear from anyone.may need fistula replaced. has consult today in [place].Polyneuropathy: needs refill on Gabapentin 300 mg at night.Dysphagia: has difficulty swallowing since having stroke. She reports she will have to struggle to swallow sometimes even water. Sometimes has difficulty swallowing medications as well. Has been getting abdominal pain and with drinking coffee. She has been taking Pepto Bismol for the pain along with her other GI medications.Physical therapy: just finished in home therapy and was told to continue outpatient therapyAV fistula: will be getting rechecked today. Possible surgery to have another one placed. [place] [facility] DO Work Phone: 05-15-2022 History of Presen t illness Narrative 47 year old female here to establish care. Has many chronic conditions.Was released May 15: Hospitalized for 44 days for UTI that was antibiotic resistant- had fistula replaced while in hospital, because they were unable to access.Eye speciality: blind in right eye. was treating her for migraines.Kidney speciality: DialysisGI: gastroparesis, Barretts esophagusEndocrinology: Manages her diabetes, Last A1c was 7 something'. according to paperwork she has brought with her, her last HbA1c was 8.0 on 04/03/22ENT: chronic ear pain/drainage, hard of hearing due to past factory workUrology: for chronic UTIs, Catheter for 3 years due to inability to urinate but just recently had it removed, is now on dialysis.Pain management: chronic back painPodiatry: diabetes, has amputated partial foot/and 5th toe.Had a mini-stroke in early ocial Hx:Tobacco: DeniesETOH: DeniesDrugs: DeniesCaffeine: [facility] Work Phone: [facility] Diagnosis Mild intermittent asthma without complication- Primary Gastroparesis End stage renal disease ([facility]) End stage renal disease Chronic migraine without aura without status migrainosus, not intractable Type 2 diabetes mellitus with other circulatory complication, with long-term current use of insulin ([facility]) Current mild episode of major depressive disorder without prior episode ([facility]) AV fistula ([facility]) Benign essential hypertension Essential hypertension, benign Class 3 severe obesity due to excess calories with serious comorbidity and body mass index (BMI) of 40.0 to 44.9 in adult ([facility]) documented in this encounter [facility] Work Phone: Evaluation note* Diagnosis Type 2 diabetes mellitus with diabetic neuropathy, with long-term current use of insulin ([facility])- Primary ESRD needing dialysis ([facility]) End stage renal disease Primary hypertension Unspecified essential hypertension Vascular dialysis catheter in place ([facility]) Renal dialysis status AV fistula ([facility]) Arteriovenous fistula, acquired Hyperlipidemia, mixed Mixed hyperlipidemia Seasonal allergies Allergic rhinitis, cause unspecified GERD without esophagitis Esophageal reflux Vitamin D deficiency Unspecified vitamin D deficiency Primary amenorrhea Absence of menstruation Foot drop, left foot Wheelchair dependent Wheelchair dependence Other irritable bowel syndrome Diabetic gastroparesis (HCC) Type II or unspecified type diabetes mellitus with neurological manifestations, not stated as uncontrolled Mild intermittent asthma, uncomplicated Unspecified asthma History of CVA (cerebrovascular accident) Transient ischemic attack (TIA), and cerebral infarction without residual deficits Recurrent major depressive disorder, in partial remission (HCC) Nocturnal hypoxia Hypoxemia Encounter for screening mammogram for breast cancer Left foot drop Other acquired deformity of ankle and foot [facility] for [facility] Diagnostic Procedure Only (Routine) - Pending Review Specialty Diagnoses / Procedures Referred By Jackson t Referred To Contact [facility] Diagnoses Encounter for screening mammogram for breast cancer Procedures RAMBO SCREENING SCREENING MAMMOGRAPHY BI 2-VIEW BREAST INC CAD Xochitl Peters DO [address] [place] [address] [facility] [address] [place] [address] Referral ID Status Reason Start Date Expiration Date Visits Requested Visits Authorized [id number] Pending Review Auto-Generat ed Referral 3 09/22/2024 1 1 [facility] Chief Complaint Pt presents to establish new PCP; previous pt of [facility] in [place], [place]; currently on dialysis; needing HHC with PT and OT; needing new Disability Placard.Pt presents for hospital f/u from Stroke in August followed by prison stay. Released 09/26/22. Would like to discuss medications, states she is taking Losartan potassium and should not be on potassium.Pt presents for hospital f/u from Stroke in August followed by prison stay. Released 09/26/22. Would like to discuss medications, states she is taking Losartan potassium and should not be on potassium. Family History No Family History Records FoundUnknown Family Member Name Dates Details Family history of type 2 hailey betes mellitus: Mother, Father(V18.0, Z83.3) Status:Active Family history of migraine h eadaches: Mother(V17.2, Z82.0) Status:Active Family history of dementia: Mother(V17.2, Z81.8) Status:Active Family history of cardiac di sorder: Mother(V17.49, Z82.49) Status:Active Family history of fibromyalg ia: Mother(V17.89, Z82.69) Status:Active Family history of kidney dis ease: Father(V18.69, Z84.1) Status:Active Family history of type C vir al hepatitis: Father(V18.8, Z83.1) Status:Active Unknown Family Member Name Dates Details Family history of type 2 hailey betes mellitus: Mother, Father(V18.0, Z83.3) Status:Active Family history of migraine h eadaches: Mother(V17.2, Z82.0) Status:Active Family history of dementia: Mother(V17.2, Z81.8) Status:Active Family history of cardiac di sorder: Mother(V17.49, Z82.49) Status:Active Family history of fibromyalg ia: Mother(V17.89, Z82.69) Status:Active Family history of kidney dis ease: Father(V18.69, Z84.1) Status:Active Family history of type C vir al hepatitis: Father(V18.8, Z83.1) Status:Active Unknown Family Member Name Dates Details Family history of type 2 hailey betes mellitus: Mother, Father(V18.0, Z83.3) Status:Active Family history of migraine h eadaches: Mother(V17.2, Z82.0) Status:Active Family history of dementia: Mother(V17.2, Z81.8) Status:Active Family history of cardiac di sorder: Mother(V17.49, Z82.49) Status:Active Family history of fibromyalg ia: Mother(V17.89, Z82.69) Status:Active Family history of kidney dis ease: Father(V18.69, Z84.1) Status:Active Family history of type C vir al hepatitis: Father(V18.8, Z83.1) Status:Active Unknown Family Member Name Dates Details Family history of type 2 hailey betes mellitus: Mother, Father(V18.0, Z83.3) Status:Active Family history of migraine h eadaches: Mother(V17.2, Z82.0) Status:Active Family history of dementia: Mother(V17.2, Z81.8) Status:Active Family history of cardiac di sorder: Mother(V17.49, Z82.49) Status:Active Family history of fibromyalg ia: Mother(V17.89, Z82.69) Status:Active Family history of kidney dis ease: Father(V18.69, Z84.1) Status:Active Family history of type C vir al hepatitis: Father(V18.8, Z83.1) Status:Active Unknown Family Member Name Dates Details Family history of type 2 hailey betes mellitus: Mother, Father(V18.0, Z83.3) Status:Active Family history of migraine h eadaches: Mother(V17.2, Z82.0) Status:Active Family history of dementia: Mother(V17.2, Z81.8) Status:Active Family history of cardiac di sorder: Mother(V17.49, Z82.49) Status:Active Family history of fibromyalg ia: Mother(V17.89, Z82.69) Status:Active Family history of kidney dis ease: Father(V18.69, Z84.1) Status:Active Family history of type C vir al hepatitis: Father(V18.8, Z83.1) Status:Active Unknown Family Member Name Dates Details Family history of type 2 hailey betes mellitus: Mother, Father(V18.0, Z83.3) Status:Active Family history of migraine h eadaches: Mother(V17.2, Z82.0) Status:Active Family history of dementia: Mother(V17.2, Z81.8) Status:Active Family history of cardiac di sorder: Mother(V17.49, Z82.49) Status:Active Family history of fibromyalg ia: Mother(V17.89, Z82.69) Status:Active Family history of kidney dis ease: Father(V18.69, Z84.1) Status:Active Family history of type C vir al hepatitis: Father(V18.8, Z83.1) Status:Active Unknown Family Member Name Dates Details Family history of type 2 hailey betes mellitus: Mother, Father(V18.0, Z83.3) Status:Active Family history of migraine h eadaches: Mother(V17.2, Z82.0) Status:Active Family history of dementia: Mother(V17.2, Z81.8) Status:Active Family history of cardiac di sorder: Mother(V17.49, Z82.49) Status:Active Family history of fibromyalg ia: Mother(V17.89, Z82.69) Status:Active Family history of kidney dis ease: Father(V18.69, Z84.1) Status:Active Family history of type C vir al hepatitis: Father(V18.8, Z83.1) Status:Active Unknown Family Member Name Dates Details Family history of type 2 hailey betes mellitus: Mother, Father(V18.0, Z83.3) Status:Active Family history of migraine h eadaches: Mother(V17.2, Z82.0) Status:Active Family history of dementia: Mother(V17.2, Z81.8) Status:Active Family history of cardiac di sorder: Mother(V17.49, Z82.49) Status:Active Family history of fibromyalg ia: Mother(V17.89, Z82.69) Status:Active Family history of kidney dis ease: Father(V18.69, Z84.1) Status:Active Family history of type C vir al hepatitis: Father(V18.8, Z83.1) Status:Active Unknown Family Member Name Dates Details Family history of type 2 hailey betes mellitus: Mother, Father(V18.0, Z83.3) Status:Active Family history of migraine h eadaches: Mother(V17.2, Z82.0) Status:Active Family history of dementia: Mother(V17.2, Z81.8) Status:Active Family history of cardiac di sorder: Mother(V17.49, Z82.49) Status:Active Family history of fibromyalg ia: Mother(V17.89, Z82.69) Status:Active Family history of kidney dis ease: Father(V18.69, Z84.1) Status:Active Family history of type C vir al hepatitis: Father(V18.8, Z83.1) Status:Active Unknown Family Member Name Dates Details Family history of type 2 hailey betes mellitus: Mother, Father(V18.0, Z83.3) Status:Active Family history of migraine h eadaches: Mother(V17.2, Z82.0) Status:Active Family history of dementia: Mother(V17.2, Z81.8) Status:Active Family history of cardiac di sorder: Mother(V17.49, Z82.49) Status:Active Family history of fibromyalg ia: Mother(V17.89, Z82.69) Status:Active Family history of kidney dis ease: Father(V18.69, Z84.1) Status:Active Family history of type C vir al hepatitis: Father(V18.8, Z83.1) Status:Active Unknown Family Member Name Dates Details Family history of type 2 hailey betes mellitus: Mother, Father(V18.0, Z83.3) Status:Active Family history of migraine h eadaches: Mother(V17.2, Z82.0) Status:Active Family history of dementia: Mother(V17.2, Z81.8) Status:Active Family history of cardiac di sorder: Mother(V17.49, Z82.49) Status:Active Family history of fibromyalg ia: Mother(V17.89, Z82.69) Status:Active Family history of kidney dis ease: Father(V18.69, Z84.1) Status:Active Family history of type C vir al hepatitis: Father(V18.8, Z83.1) Status:Active Unknown Family Member Name Dates Details Family history of type 2 hailey betes mellitus: Mother, Father(V18.0, Z83.3) Status:Active Family history of migraine h eadaches: Mother(V17.2, Z82.0) Status:Active Family history of dementia: Mother(V17.2, Z81.8) Status:Active Family history of cardiac di sorder: Mother(V17.49, Z82.49) Status:Active Family history of fibromyalg ia: Mother(V17.89, Z82.69) Status:Active Family history of kidney dis ease: Father(V18.69, Z84.1) Status:Active Family history of type C vir al hepatitis: Father(V18.8, Z83.1) Status:Active Unknown Family Member Name Dates Details Family history of type C vir al hepatitis: Father(V18.8, Z83.1) Status:Active Family history of kidney dis ease: Father(V18.69, Z84.1) Status:Active Family history of fibromyalg ia: Mother(V17.89, Z82.69) Status:Active Family history of cardiac di sorder: Mother(V17.49, Z82.49) Status:Active Family history of dementia: Mother(V17.2, Z81.8) Status:Active Family history of migraine h eadaches: Mother(V17.2, Z82.0) Status:Active Family history of type 2 hailey betes mellitus: Mother, Father(V18.0, Z83.3) Status:Active Unknown Family Member Name Dates Details Family history of type C vir al hepatitis: Father(V18.8, Z83.1) Status:Active Family history of kidney dis ease: Father(V18.69, Z84.1) Status:Active Family history of fibromyalg ia: Mother(V17.89, Z82.69) Status:Active Family history of cardiac di sorder: Mother(V17.49, Z82.49) Status:Active Family history of dementia: Mother(V17.2, Z81.8) Status:Active Family history of migraine h eadaches: Mother(V17.2, Z82.0) Status:Active Family history of type 2 hailey betes mellitus: Mother, Father(V18.0, Z83.3) Status:Active Reason for Referral Specialty Diagnoses / Procedures Referred By Jackson lutz Referred To Contact Neurology Diagnoses Migraine without aura and without status migrainosus, not intractable Caroline Sousa, [employer] [address] [place] [address] [facility] Referral ID Status Reason Start Date Expiration Date Visits Re quested Visits Authorized [id number] Closed 11/12/2022 11/12/2023 1 1 Summary Purpose Advance Directives No Advanced Directives Records FoundNo Advanced Directives Records FoundNo Advanced Directives Records FoundNo Advanced Directives Records Found Additional Source Comments INFORMATION SOURCE (unrecogn ized section and content) DATE CREATED AUTHOR AUTHOR'S ORGANIZ ATION 11/13/2022 [facility] DATE CREATED AUTHOR AUTHOR'S ORGANIZ ATION 05/14/2023 [facility] DATE CREATED AUTHOR AUTHOR'S ORGANIZ ATION 10/05/2023 [facility] Care Teams (unrecognized sec tion and content) Game Technician Relationship Specialty Start Date End Date Xochitl Peters DO [address] [place] [id number] PCP - General Family Medicine 08/24/23 Maddy Anaya MD [address] [place] [address] Family [facility] 08/24/23 Game Technician Relationship Specialty Start Date End Date Fran Xochitl So DO [address] [place] [id number] PCP - General [facility] 08/24/23 Maddy Anaya MD [address] [place] [address] Family [facility] 08/24/23 Game Technician Relationship Specialty Start Date End Date Fran Xochitl So DO [address] [place] [id number] PCP - General [facility] 08/24/23 Maddy Anaya MD [address] [place] [address] [facility] 08/24/23 <item> Privacy Markings (unrecogniz ed section and content) Section Author: Halle Tovar PROHIBITION ON REDISCLOSURE OF CONFIDENTIAL INFORMATION This notice accompanies a disclosure of information concerning a client made to you with the consent of such client. Source Comments (unrecognize d section and content) In the event this informatio n is protected by the Federal Confidentiality of Alcohol and Drug Abuse Patient Records regulations: The Federal rules restrict any use of the information to criminally investigate or prosecute any alcohol or drug abuse patient.[facility] the event this information is protected by the Federal Confidentiality of Alcohol and Drug Abuse Patient Records regulations: The Federal rules restrict any use of the information to criminally investigate or prosecute any alcohol or drug abuse patient.[facility] the event this information is protected by the Federal Confidentiality of Alcohol and Drug Abuse Patient Records regulations: The Federal rules restrict any use of the information to criminally investigate or prosecute any alcohol or drug abuse patient.[facility] the event this information is protected by the Federal Confidentiality of Alcohol and Drug Abuse Patient Records regulations: The Federal rules restrict any use of the information to criminally investigate or prosecute any alcohol or drug abuse patient.[facility] Reason for Visit (unrecogniz ed section and content) Reason Comments Results Reason Onset Date Comments Refill Request 09/02/2023 Reason Comments New Patient Establish care previ ous pcp was Dr. Anaya in [place]. Needs medication refills FOR RECORDS PERTAINING TO PATIENTS WHO ARE OR HAVE BEEN ENROLLED IN A CHEMICAL DEPENDENCY/SUBSTANCEABUSE PROGRAM, SOME INFORMATION MAY BE OMITTED. This clinical summary was aggregated from multiple sources. Caution should be exercised in using it in the provision of clinical care. This summary normalizes information from multiple sources, and as a consequence, information in this document may materially change the coding, format and clinical context of patient data. In addition, data may be omitted in some cases. CLINICAL DECISIONS SHOULD BE BASED ON THE PRIMARY CLINICAL RECORDS. [facility]. provides no warranty or guarantee of the accuracy or completeness of information in this document.
[2023-10-08] MEDS: Pantoprazole Sodium 80 MG in 0.9% Normal Saline (50mL Bag) 15 ML 420 MG IV BOLUS (00:13)
[2023-10-08] MEDS: 0.9% Normal Saline (250mL Bag) 250 ML 999 ML IV (00:13)
[2023-10-08] MEDS: Mag Hydrox/Al Hydrox/Simeth 30 ML UDC PO (00:22)
[2023-10-08] MEDS: Sucralfate 1 GM Tablet PO (00:22)
[2023-10-08] MEDS: proMETHazine 25 MG Tablet PO (00:26)
[2023-10-08 00:42] LABS: ALB/GLOB Ratio 0.8 RATIO (0.9-2.4); AST(SGOT) 12 U/L (15-37); Alanine Aminotransfer ALT/SGPT 21 U/L (13-56); Albumin, Serum 2.9 g/dL (3.2-5.0); Alkaline Phosphatase 95 U/L (45-117); Anion Gap 8 (5-15); BUN 42 mg/dL (7-18); BUN/Creat Ratio 7.7 RATIO (10-20); Calcium,Total 9.1 mg/dL (8.5-10.1); Chloride 99 mmol/L (98-107); Creatinine, Serum 5.43 mg/dL (0.55-1.02); EST Glomerular Filtration Rate 9 mL/min (>60); Est Glom Filt Rate - Afr Amer 11 mL/min (>60); Globulin 3.7 g/dL (2.2-4.2); Potassium 4.6 mmol/L (3.5-5.1); Protein, Total 6.6 g/dL (6.4-8.2); Sodium Level 132 mmol/L (136-145)
[2023-10-08 01:37] LABS: Bedside Glucose 390 mg/dL (74-106)
[2023-10-08 01:46] LABS: Glucose 540 mg/dL (74-106)
== END 2023-10-08 01:36 | disposition home or self-care (01) ==
PROVIDERS: Emergency Provider Emergency Medicine; PCP Family Medicine; Visit Provider Emergency Medicine
DX: K92.0 Hematemesis (principal); I13.2 Hypertensive heart and chronic kidney disease with heart failure and with stage 5 chronic kidney disease, or end stage renal disease; Z99.2 Dependence on renal dialysis; E11.43 Type 2 diabetes mellitus with diabetic autonomic (poly)neuropathy; E11.22 Type 2 diabetes mellitus with diabetic chronic kidney disease; E11.65 Type 2 diabetes mellitus with hyperglycemia; N18.6 End stage renal disease; Z79.4 Long term (current) use of insulin; Z87.891 Personal history of nicotine dependence; K22.70 Barrett's esophagus without dysplasia; I16.0 Hypertensive urgency; K31.84 Gastroparesis; R13.10 Dysphagia, unspecified
CPT/HCPCS: 80053; 82962; 85025; 86850; 86900; 86901; 99282; J7050; A4216; J3490

== ENCOUNTER 2023-10-23 13:34 | Inpatient (IN) | payer MEDICARE, MEDICAID, SELFPAY ==
[2023-10-23] VITALS (9 sets, daily range): BP systolic 150–246; BP diastolic 54–112; PULSE 65–84; RESP 12–20; TEMP 36.6; O2SAT 93–100; BMI 47.5; BMI 46.8
--- NOTE | 2023-10-23 13:44 | EX.ED.DYSGE1 ---
HPI History of Present Illness Chief Complaint: Flank Pain [facility] Medical History Anxiety Arthritis Asthma Fleming esophagus Blackout Bruising delivery delivered Chronic kidney disease Depression Dietary restriction Difficulty swallowing Disc disorder Easy bruising ESRD needing dialysis FH: cholecystectomy Fibromyalgia, primary Former smoker Gastric reflux High cholesterol History of CHF (congestive heart failure) History of Clostridium difficile infection History of echocardiogram History of edema History of stress test History of ulceration Hypertension Hypertension Hypertensive urgency Injury of head and neck Insulin dependent diabetes mellitus Left foot amputee (~2019) Left hand pain Loss of hearing Low iron LUE weakness Migraine headache On home oxygen therapy Seasonal allergies Shortness of breath on exertion Stroke (~2021) Syncope Thyroid disease Transitioned from acute care to home health care Uses wheelchair Vision impairment Walker as ambulation aid Wears glasses Home Medications aspirin 81 mg tablet,delayed release 81 mg PO DAILY HEART HEALTH 06/23/22 [History Last Taken 09/05/23] bumetanide 1 mg tablet 1 mg PO DAILY FLUID 06/23/22 [History Last Taken 09/05/23] cetirizine 10 mg tablet 10 mg PO DAILY ALLERGIES 06/23/22 [History Last Taken 09/05/23] losartan 50 mg tablet 100 mg PO DAILY BLOOD PRESSURE 06/23/22 [History Last Taken 09/05/23] pantoprazole 40 mg tablet,delayed release 40 mg PO DAILY ACID REFLUX 06/23/22 [History Last Taken 09/05/23] tamsulosin 0.4 mg capsule 0.4 mg PO QHS BLADDER 06/23/22 [History Last Taken 09/05/23] promethazine 25 mg tablet 25 mg PO Q6H PRN NAUSEA/VOMITING 09/01/22 [History Last Taken Unknown] atorvastatin 40 mg tablet 40 mg PO QHS #30 tabs 09/04/22 [Rx Last Taken 09/05/23] albuterol sulfate 2.5 mg/3 mL (0.083 %) solution for nebulization 2.5 mg inhalation Q4H PRN SOB 01/07/23 [History Last Taken 01/19/23] sucroferric oxyhydroxide 500 mg chewable tablet (Velphoro) 500 mg PO TID 01/07/23 [History Last Taken 09/05/23] cyclobenzaprine 10 mg tablet 10 mg PO TID PRN PRN Breakthrough Pain (>4/10) 7 days #21 tabs 01/22/23 [Rx Last Taken 09/05/23] gabapentin 100 mg capsule 300 mg (3 x 100 mg) PO QHS NERVE PAIN #21 caps 01/22/23 [Rx Last Taken 09/05/23] flash glucose sensor (FreeStyle Gissell 2 Sensor kit) #6 ea 03/16/23 [Rx Last Taken Unknown] hydrocodone 7.5 mg-acetaminophen 325 mg tablet 1 tab PO Q6H PRN pain 3 days #12 tabs 04/06/23 [Rx Last Taken 09/05/23] hydrocodone 7.5 mg-acetaminophen 325 mg tablet 1 tab PO Q6H PRN pain 3 days #12 tabs 04/12/23 [Rx Last Taken Unknown] insulin detemir U-100 100 unit/mL (3 mL) subcutaneous pen 26 unit (0.26 mL) subcut QHS DIABETES #30 mL 08/04/23 [Rx Last Taken 09/03/23] pen needle, diabetic 32 gauge x 5/32 (BD Ultra-Fine Laura Pen Needle) #400 ea 08/04/23 [Rx Last Taken Unknown] acetaminophen 500 mg tablet 1,000 mg PO Q6H PRN pain 08/13/23 [History Last Taken Unknown] dicyclomine 10 mg capsule 10 mg PO BID stomach 08/13/23 [History Last Taken Unknown] insulin aspart U-100 100 unit/mL (3 mL) subcutaneous pen (Novolog FlexPen U-100 Insulin aspart) 15 unit subcut TID DIABETES 08/13/23 [History Last Taken 09/05/23] vitamin B complex-vitamin C-folic acid 0.8 mg tablet (Nephro-Chris) 1 tab PO DAILY supplement 08/13/23 [History Last Taken 09/05/23] dicyclomine 10 mg capsule 10 mg PO BID #60 caps 08/14/23 [Rx Last Taken 09/05/23] lamotrigine 25 mg chewable dispersible tablet 50 mg (2 x 25 mg) PO DAILY #60 ea 08/14/23 [Rx Last Taken 09/05/23] pantoprazole 40 mg tablet,delayed release 40 mg PO DAILY #30 tabs 08/14/23 [Rx Last Taken Unknown] sennosides 8.6 mg-docusate sodium 50 mg tablet (Stool Softener-Stimulant Laxative) 2 tab PO DAILY #0 tabs 08/14/23 [Rx Last Taken Unknown] sucralfate 1 gram tablet 1 g PO TID@0700,1100,1600 #90 tabs 08/14/23 [Rx Last Taken 09/05/23] doxycycline monohydrate 100 mg capsule 100 mg PO BID #14 CAPSULES 09/06/23 [Rx Last Taken Unknown] Allergy/AdvReac Type Severity Reaction Status Date / Time lidocaine Allergy Severe Rash Verified 10/23/23 13:36 bacitracin Allergy Intermediate blisters Verified 10/23/23 13:36 hydrogen peroxide Allergy Intermediate blisters Verified 10/23/23 13:36 isopropyl alcohol Allergy Intermediate blisters Verified 10/23/23 13:36 Sulfa (Sulfonamide Allergy Intermediate Rash Verified 10/23/23 13:36 Antibiotics) Bleach (Sodium Hypochlorite) Allergy Hives Verified 10/23/23 13:36 insulin lispro Allergy HIVES, Verified 10/23/23 13:36 [From Humalog U-100 Insulin] REDNESS Latex, Natural Rubber Allergy Rash Verified 10/23/23 13:36 ondansetron [From Zofran] AdvReac Severe Constipatio Verified 10/23/23 13:36 n dicyclomine AdvReac Mild Vomiting Verified 10/23/23 13:36 metformin AdvReac Vomiting Verified 10/23/23 13:36 neomycin AdvReac HIVES, Verified 10/23/23 13:36 [From Neosporin REDNESS ([id number])] polymyxin B AdvReac HIVES, Verified 10/23/23 13:36 [From Neosporin REDNESS ([id number])] Family History Other Arthritis Asthma CVA (cerebral vascular accident) Diabetes Heart disease High cholesterol Hypertension Kidney disease Osteoporosis Seizures Surgical History H/O left knee surgery H/O right knee surgery History of arteriovenostomy for renal dialysis History of bladder surgery History of History of cholecystectomy History of foot surgery History of infusaport central venous catheter removal History of liver biopsy History of lumpectomy of right breast History of shoulder surgery History of thoracentesis Hx of tonsillectomy Social History household members: family housing: house Smoking Status: Former smoker alcohol intake: never EXAM Physical Exam Const Vital Signs: 10/23/23 13:36 10/23/23 14:20 10/23/23 15:23 Temperature 98 F Temperature Source Temporal Pulse Rate 84 68 65 Respiratory Rate 18 20 H 14 Blood Pressure 246/112 H 184/82 H 187/87 H Blood Pressure Mean 156 116 120 Pulse Ox 100 99 97 Oxygen Delivery Method Room Air Room Air Room Air 10/23/23 16:09 Temperature Temperature Source Pulse Rate 69 Respiratory Rate 18 Blood Pressure 188/80 H Blood Pressure Mean 116 Pulse Ox 96 Oxygen Delivery Method MDM MDM MDM Narrative Medical decision making narrative: HISTORY OF PRESENT ILLNESS: 48-year-old female presents with bilateral flank pain. States she currently undergos dialysis (MWF) but has not gone for over a week. She states she has not been able to get to dialysis secondary to not having a ride. She states she recently spent $3000 get her car fixed however does not solve the problem in her car still broken resulting in no primary transportation. She further states she started experiencing bilateral flank pain that is described as sharp. This pain occurred last night. It has been constant and severe ever since. Close pain radiates to her bilateral shoulder blades. The pain is associated with nausea. He pain is not ripping or tearing. She denies chest pain, focal weakness, vomiting, she still makes urine. She denies any dysuria. She denies any family or personal history of connective tissue disorders. REVIEW OF SYSTEMS: Pertinent positives: Flank pain, nausea Pertinent negatives: Chest pain, headache, neck pain, focal weakness, PHYSICAL EXAM: Nursing triage notes reviewed, Vital signs reviewed Constitutional: please see mdm HENT: MMM Eyes: Pupils equal round and reactive to light, Extraocular muscles intact Neck: No stridor, no JVD, full neck ROM Lungs: Clear to auscultation, No wheezing or rales. No increased work of breathing, no conversational dyspnea, no accessory muscle use, no nasal flaring. No respiratory distress noted Heart: Regular rate and rhythm, No murmurs, No rubs and No gallops, 2+ distal pulses (radial, femoral, posterior tibial) in all extremities Abdomen: Soft, there is no tenderness, rigidity, rebound or guarding, no obvious peritoneal signs, no palpable pulsatile abdominal masses, no auscultated abdominal bruit : No CVAT Extremities: No edema Neuro: No focal neurological deficits, cranial nerves II through XII intact, 5/5 strength in all extremities. Intact sensation to light touch in all extremities Skin: LUE AV fistula with palpable thrill. MEDICAL DECISION MAKING: Chief Complaint: Flank pain External records reviewed: Seen in the ED in October 2023 for nausea vomiting was discharged at that time. Factors affecting care: Gastroparesis, Fleming's esophagus, type 2 diabetes Social determinants of health: Financial difficulty, transportation and health access difficulty History obtained from others: none Consults: Internal medicine (Dr. Starr) MDM Narrative: Patient was initially markedly hypertensive, otherwise afebrile, not tachycardic. Exam without focal neurologic deficitsnor pulse deficits but given elevated blood pressure, flank pain that radiated to shoulder blades is concerned about aortic pathology primarily.. I considered the following differential diagnosis: Aortic pathology, kidney stone, pyelonephritis, electrolyte disturbance Patient initially presented markedly hypertensive given elevated blood pressure of 246/112 opted to lower the patient's blood pressure with IV labetalol. I treated her pain and nausea with morphine and Zofran. I obtained a broad lab and imaging workup to further elucidate the etiology of the patient's complaints. Despite her history of end-stage renal disease and low GFR I opted to undergo a contrasted CT scan of the chest abdomen pelvis. Risk and benefits of CT induced nephropathy were discussed with the patient. She agrees to the risk and benefit. Patient was then directly to the scanner and labs were waived. ALL IMAGES (IF OBTAINED) HAVE BEEN PERSONALLY REVIEWED AND INTERPRETED BY MYSELF. CT scan of the C/A/P shows no evidence of urine pathology including dissection or significant aneurysm EKG with normal sinus rhythm, normal axis, normal goals, no STEMI VBG with metabolic acidosis, bicarb is greater than 15 suggestive of no DKA High-sensitivity troponin is negative, no evidence of myocardial ischemia Acetone negative Lipase is wnl indicating no pancreatic inflammation. CBC without leukocytosis, stable anemia, no thrombocytopenia BMP with pseudohyponatremia, no anion gap, bicarb on BMP is not less than 15 making DKA less likely, shows evidence of end-stage renal disease, no evidence of significant electrolyte disturbances as result, noted severe hyperglycemia The synthesis of the patient's history, physical exam, labs images suggest poor med compliance, poor dialysis compliance resulting in hyperglycemia with no evidence of DKA or HHS as well as metabolic acidosis and elevated creatinine. Patient did not have access to transportation to dialysis and while we cannot do dialysis here at [facility] on the weekends I still thought to benefit the patient to come into the hospital given her elevated blood pressure requiring IV blood pressure lowering medication and severe elevated blood sugar. In addition to this patient had no way of getting to dialysis on Wednesday which was of concern. I discussed this concern, patient's elevated blood pressure, elevated blood sugar with the hospitalist who agreed admit the patient to the PCU under observation status The patient and/or family, caregivers express understanding. The patient and/or family, caregivers agrees with the plan. Shared decision making: I will have a discussion with the patient and or visitors regarding risk/benefits of further testing or admission. They will be made aware of of the risk/benefits inherent in this decision they will be given the opportunity to voice understanding. Total critical care time today provided was at least 0 minutes. This excludes separately billable procedures. Critical care time (if documented) is secondary to the patient having high probability of clinically significant/life threatening deterioration in the patient's condition which required my urgent intervention. Impression: 1. Hypertensive urgency 2. Hyperglycemia 3. End stage renal disease Dispo: Admit to PCU Lab Data Labs: Laboratory Results - last 24 hr 10/23/23 13:50 WBC 6.9 RBC 3.62 L Hgb 10.8 L Hct 32.5 L MCV 89.8 MCH 29.8 MCHC 33.2 RDW Std Deviation 42.0 RDW Coeff of Juan 12.7 Plt Count 275 MPV 9.6 Immature Gran % (Auto) 0.700 Neut % (Auto) 74.0 H Lymph % (Auto) 17.3 L Cloud % (Auto) 3.8 Eos % (Auto) 3.3 Baso % (Auto) 0.9 Absolute Neuts (auto) 5.1 Absolute Lymphs (auto) 1.19 Nucleated RBC % 0 Sodium 131 L Potassium 4.4 Chloride 99 Carbon Dioxide 22.0 Anion Gap 10 BUN 54 H Creatinine 5.94 H Estim Creat Clear Calc 17.00 Est GFR (MDRD) Af Amer 10 L Est GFR (MDRD) Non-Af 8 L BUN/Creatinine Ratio 9.1 L Glucose 713 H* Calcium 9.2 Troponin I High Sens 24 Lipase 34 Acetone Level NEGATIVE ABG Data ABG results: ABG 10/23/23 15:39 Specimen Type MALIA Sample Site Not entered VBG pH 7.24 L VBG pO2 30 VBG HCO3 20 L VBG Total CO2 21 L VBG O2 Sat (Calc) 47 L VBG Base Excess -8 L POC Mix VBG pCO2 Pt Tmp 46.0 O2 Delivery Device Room Air Radiography Diagnostic Testing: Clinical Impression(s) from Imaging Studies Chest CTA 10/23/23 13:55 IMPRESSION: 1. Normal CTA chest examination, without a demonstrated pulmonary embolism or arterial dissection. 2. Trace right pleural effusion. Small to moderate-sized left pleural effusion with mild basilar atelectasis. Subsegmental atelectasis or small foci of fibrosis is present in the lingula and right middle lobe. No nodules are present. 3. Small pericardial effusion Electronically Signed: Brad Brewer MD at 15:17 EST Reading Location ID and State: [id number] , Service support , Abdomen/Pelvis CTA 10/23/23 14:00 IMPRESSION: 1. Normal CTA chest examination, without a demonstrated pulmonary embolism or arterial dissection. 2. Trace right pleural effusion. Small to moderate-sized left pleural effusion with mild basilar atelectasis. Subsegmental atelectasis or small foci of fibrosis is present in the lingula and right middle lobe. No nodules are present. 3. Small pericardial effusion Electronically Signed: Brad Brewer MD at 15:17 EST , Discharge Plan Dx/Rx/DC Orders Clinical Impression: Hypertensive urgency, Acute hyperglycemia, End-stage renal disease (ESRD) Disposition Disposition: Acute Care [facility]
--- NOTE | 2023-10-23 13:55 | CT_ITS ---
STUDY: CTA OF THE ABDOMEN AND PELVIS REASON FOR EXAM: Female, 48 years old. HTN, R/O AORTIC PATH BILAT FLANK PAIN. NO DIALYSIS FOR OVER A WEEK. RADIATION DOSAGE (If Supplied By Facility): CTDIvol = ( 19.5 ) mGy, DLP = ( 1487.87 ) mGycm TECHNIQUE: Axial CT angiography multi-detector data acquisition was obtained from the to the following intravenous administration of IV 100mL Isovue-370. Axial images and MIP images were reconstructed from the axial data set. Post-processing of the angiographic images was performed, with multiplanar reformation and 3D reconstruction. Individualized dose optimization techniques were used for this CT. TECHNICAL QUALITY: Good COMPARISON: CT of abdomen and pelvis dated August 21, 2023 Descriptors of Narrowing: None (0%) Mild (< 50%) Moderate (50-70%) Severe (70-90%) Subtotal/Total Occlusion (90-100%) Non-Evaluable (technically non-diagnostic FINDINGS: Abdominal aorta: No demonstrated narrowing. Celiac and superior mesenteric arteries: No demonstrated narrowing. Inferior mesenteric artery: No demonstrated narrowing. Right renal artery(arteries): No demonstrated narrowing. Left renal artery(arteries): No demonstrated narrowing. Right common iliac artery: No demonstrated narrowing. Right external iliac artery: No demonstrated narrowing. Right internal iliac artery: No demonstrated narrowing. Left common iliac artery: No demonstrated narrowing. Left external iliac artery: No demonstrated narrowing. Left internal iliac artery: No demonstrated narrowing. The angiographic images show the celiac axis and superior mesenteric arteries to patent without signs of significant stenosis. There is good vascular territory runoff. The renal arteries show no signs of significant stenosis with good vascular territory runoff. The abdominal aorta is normal in caliber throughout. There are no signs of aneurysm or periaortic leak. There is no dissection. The common iliac arteries, external iliac arteries and common femoral arteries are fairly disease-free without significant stenosis or aneurysm. NONVASCULAR FINDINGS: Trace right pleural effusion. Small to moderate-sized left pleural effusion with mild left lower lobe atelectasis is also noted. Normal liver. There are surgical clips in the gallbladder fossa consistent with a prior cholecystectomy. Normal spleen. Normal pancreas. Normal bilateral adrenal glands. There is mild cortical atrophy of the right kidney, consistent with chronic medical renal disease. There is mild cortical atrophy of the left kidney, consistent with chronic medical renal disease. Normal visualized stomach. Normal small intestine. Normal colon. The appendix is visualized and appears normal. There is diffuse atherosclerotic calcification of the abdominal aorta, without a demonstrated aneurysm. Normal inferior vena cava. Normal retroperitoneum. Normal urinary bladder. Unremarkable uterus and adnexa. Normal abdominal wall. There are diffuse degenerative changes of the visualized lumbar spine. Diffuse body wall edema is present. IMPRESSION: 1. Normal abdominal aorta and bilateral lower extremity run-off without a hemodynamically significant stenosis. Electronically Signed: Brad Brewer MD at 15:07 EST Reading Location ID and State: [address] [place] [address] , Service support , STUDY: CTA CHEST REASON FOR EXAM: Female, 48 years old. HTN, R/O AORTIC PATH RADIATION DOSAGE (If Supplied By Facility): CTDIvol = ( 19.5 ) mGy, DLP = ( 1487.87 ) mGycm TECHNIQUE: The examination was performed with the intravenous administration of IV ISOVUE 370 100ML. Post-processing of the angiographic images was performed, with multiplanar reformation and 3D reconstruction. Individualized dose optimization techniques were used for this CT. COMPARISON: CTA of the abdomen and pelvis dated October 23, 2023. CT of the chest dated April 06, 2023 FINDINGS: Trace right pleural effusion. Small to moderate-sized left pleural effusion with mild basilar atelectasis. Subsegmental atelectasis or small foci of fibrosis is present in the lingula and right middle lobe. No nodules are present. Normal enhancement of the main pulmonary artery and right and left pulmonary arteries. Normal enhancement of the bilateral peripheral pulmonary arteries. There is no demonstrated pulmonary embolism. Normal thoracic aorta and visualized great vessels. There is no demonstrated aortic dissection. A small pericardial effusion is present. Normal heart size. There are no demonstrated calcifications of the coronary arteries. Normal mediastinum. Normal hilar regions. Normal visualized trachea and bronchi. The lungs are well expanded. Normal chest wall structures. There are degenerative changes of thoracic spine. There is a small hiatal hernia. Redemonstration of multiple thyroid nodules. CT/CTA Chest W/WO Contrast IMPRESSION: 1. Normal CTA chest examination, without a demonstrated pulmonary embolism or arterial dissection. 2. Trace right pleural effusion. Small to moderate-sized left pleural effusion with mild basilar atelectasis. Subsegmental atelectasis or small foci of fibrosis is present in the lingula and right middle lobe. No nodules are present. 3. Small pericardial effusion Electronically Signed: Brad Brewer MD at 15:17 EST ,
--- NOTE | 2023-10-23 14:00 | CT_ITS ---
STUDY: CTA OF THE ABDOMEN AND PELVIS REASON FOR EXAM: Female, 48 years old. HTN, R/O AORTIC PATH BILAT FLANK PAIN. NO DIALYSIS FOR OVER A WEEK. RADIATION DOSAGE (If Supplied By Facility): CTDIvol = ( 19.5 ) mGy, DLP = ( 1487.87 ) mGycm TECHNIQUE: Axial CT angiography multi-detector data acquisition was obtained from the to the following intravenous administration of IV 100mL Isovue-370. Axial images and MIP images were reconstructed from the axial data set. Post-processing of the angiographic images was performed, with multiplanar reformation and 3D reconstruction. Individualized dose optimization techniques were used for this CT. TECHNICAL QUALITY: Good COMPARISON: CT of abdomen and pelvis dated August 21, 2023 Descriptors of Narrowing: None (0%) Mild (< 50%) Moderate (50-70%) Severe (70-90%) Subtotal/Total Occlusion (90-100%) Non-Evaluable (technically non-diagnostic FINDINGS: Abdominal aorta: No demonstrated narrowing. Celiac and superior mesenteric arteries: No demonstrated narrowing. Inferior mesenteric artery: No demonstrated narrowing. Right renal artery(arteries): No demonstrated narrowing. Left renal artery(arteries): No demonstrated narrowing. Right common iliac artery: No demonstrated narrowing. Right external iliac artery: No demonstrated narrowing. Right internal iliac artery: No demonstrated narrowing. Left common iliac artery: No demonstrated narrowing. Left external iliac artery: No demonstrated narrowing. Left internal iliac artery: No demonstrated narrowing. The angiographic images show the celiac axis and superior mesenteric arteries to patent without signs of significant stenosis. There is good vascular territory runoff. The renal arteries show no signs of significant stenosis with good vascular territory runoff. The abdominal aorta is normal in caliber throughout. There are no signs of aneurysm or periaortic leak. There is no dissection. The common iliac arteries, external iliac arteries and common femoral arteries are fairly disease-free without significant stenosis or aneurysm. NONVASCULAR FINDINGS: Trace right pleural effusion. Small to moderate-sized left pleural effusion with mild left lower lobe atelectasis is also noted. Normal liver. There are surgical clips in the gallbladder fossa consistent with a prior cholecystectomy. Normal spleen. Normal pancreas. Normal bilateral adrenal glands. There is mild cortical atrophy of the right kidney, consistent with chronic medical renal disease. There is mild cortical atrophy of the left kidney, consistent with chronic medical renal disease. Normal visualized stomach. Normal small intestine. Normal colon. The appendix is visualized and appears normal. There is diffuse atherosclerotic calcification of the abdominal aorta, without a demonstrated aneurysm. Normal inferior vena cava. Normal retroperitoneum. Normal urinary bladder. Unremarkable uterus and adnexa. Normal abdominal wall. There are diffuse degenerative changes of the visualized lumbar spine. Diffuse body wall edema is present. IMPRESSION: 1. Normal abdominal aorta and bilateral lower extremity run-off without a hemodynamically significant stenosis. Electronically Signed: Brad Brewer MD at 15:07 EST Reading Location ID and State: [address] [place] [address] , Service support , STUDY: CTA CHEST REASON FOR EXAM: Female, 48 years old. HTN, R/O AORTIC PATH RADIATION DOSAGE (If Supplied By Facility): CTDIvol = ( 19.5 ) mGy, DLP = ( 1487.87 ) mGycm TECHNIQUE: The examination was performed with the intravenous administration of IV ISOVUE 370 100ML. Post-processing of the angiographic images was performed, with multiplanar reformation and 3D reconstruction. Individualized dose optimization techniques were used for this CT. COMPARISON: CTA of the abdomen and pelvis dated October 23, 2023. CT of the chest dated April 06, 2023 FINDINGS: Trace right pleural effusion. Small to moderate-sized left pleural effusion with mild basilar atelectasis. Subsegmental atelectasis or small foci of fibrosis is present in the lingula and right middle lobe. No nodules are present. Normal enhancement of the main pulmonary artery and right and left pulmonary arteries. Normal enhancement of the bilateral peripheral pulmonary arteries. There is no demonstrated pulmonary embolism. Normal thoracic aorta and visualized great vessels. There is no demonstrated aortic dissection. A small pericardial effusion is present. Normal heart size. There are no demonstrated calcifications of the coronary arteries. Normal mediastinum. Normal hilar regions. Normal visualized trachea and bronchi. The lungs are well expanded. Normal chest wall structures. There are degenerative changes of thoracic spine. There is a small hiatal hernia. Redemonstration of multiple thyroid nodules. CT/CTA Abd/Pelvis W/WO Contrast IMPRESSION: 1. Normal CTA chest examination, without a demonstrated pulmonary embolism or arterial dissection. 2. Trace right pleural effusion. Small to moderate-sized left pleural effusion with mild basilar atelectasis. Subsegmental atelectasis or small foci of fibrosis is present in the lingula and right middle lobe. No nodules are present. 3. Small pericardial effusion Electronically Signed: Brad Brewer MD at 15:17 EST ,
[2023-10-23] MEDS: Metoclopramide 10 MG/2 ML Vial 5 MG IV (14:05)
[2023-10-23 14:06] LABS: Absolute Lymphocyte Count 1.19 X10^3/uL (0.83-4.51); Absolute Neutrophil Count 5.1 X10^3/uL (2.0-7.7); Basophil# 0.06 X10^3/uL; Basophil% 0.9 % (0-1); Eosinophil# 0.23 X10^3/uL; Eosinophils% 3.3 % (0-5); Hematocrit 32.5 % (37-47); Hemoglobin 10.8 g/dL (12.0-15.0); Lymphocyte # 1.19 X10^3/ul (0.83-4.51); Lymphocyte % 17.3 % (19-41); Mean Corp Hgb Conc 33.2 g/dL (32-36); Mean Corpuscular Hgb 29.8 pg (27.0-32.0); Mean Corpuscular Volume 89.8 fL (81-99); Mean Platelet Vol. 9.6 fl (6.2-12.0); Monocyte# 0.26 X10^3/uL; Monocyte% 3.8 % (0-10); NRBC Flagged by Analyzer 0 % (0-5); Platelet Count 275 K/mm3 (150-450); RBC Distribution Width CV 12.7 % (11.6-14.6); Red Blood Count 3.62 M/mm3 (4.2-5.4); White Blood Count 6.9 K/mm3 (4.4-11.0)
[2023-10-23] MEDS: Morphine 4 MG/ML Syringe IV (14:07)
[2023-10-23] MEDS: Labetalol (Prefilled) 20 MG/4 ML IV (14:09)
--- OUTSIDE RECORDS SUMMARY | 2023-10-23 14:13 | XMS RPT_ITS | CCD ---
Author Name Unknown Address [address] [place] [address] Organization [facility] Care Team Providers Care Quoter Name Role Phone Caroline Sousa Unavailable Unavailable Unavailable Unavailable Primary Care Provider Unavailkwaku bosch Lars, Ms. Caroline Villanuevay Attending Unavailable Lars, . Caroline Dedra Primary Care Unavailable Sousa DIE OUT WORKER-MARTHA Caroline Kayden Primary Care Provider Sousa, Caroline Dedra Referring Unavailable Sousa, Ms. Caroline Dedra Primary Care Unavailable Lars, Ms. Caroline Dedra Attending Unavailable Lars, Ms. Caroline Dedra Attending [...] Dedra Attending Unavailable Lars, Ms. Caroline Dedra Referring Unavailable Sousa, Ms. Caroline Dedra Primary Care Unavailable Lars, Ms. Caroline Dedra Referring Unavailable Lars, Ms. Caroline Dedra Attending Unavailable Lars, Ms. Caroline Dedra Primary Care Unavailable Lars, Caroline Unavailable Unavailable Abraham Gutierrez Unavailable Unavailable Xochitl Peters DO Primary Care Provider [phone] Maddy Anaya MD Unavailable [phone] SHEETS, XOCHITL C Attending Unavailable SHEETS, XOCHITL C Primary Care Unavailable SHEETS, XOCHITL C Primary Care Unavailable SHEETS, XOCHITL C Referring Unavailable SHEETS, XOCHITL C Primary Care Unavailable SHEETS, XOCHITL C Referring Unavailable SHEETS, XOCHITL C Attending Unavailable Allergies Allergy Classification Reported Allergen(s) Allergy Type Date of Onset Reaction(s) Facility (20 sources) Bacitracin; Translations: [bacitracin] Drug Allergy 11-11-19 Unknown, Other: See Comments [facility] and Work Phone: (14 sources) Bacitracin / Neomycin / Polymyxin B; Translations: [Neosporin OINT] Drug Allergy [facility] and Work Phone: (14 sources) Hydrogen Peroxide; Translations: [PX Hydrogen Peroxide SOLN] Drug Allergy [facility] and Work Phone: (20 sources) Lidocaine; Translations: [lidocaine] Drug Allergy 11-11-19 Unknown, Other: See Comments [facility] and Work Phone: (20 sources) metFORMIN; Translations: [metformin] Drug Allergy 11-11-19 Unknown, Diarrhea, GI Upset [facility] and Work Phone: (15 sources) Polymyxin B; Translations: [Polymyxin B Sulfate SOLR] Drug Allergy 11-11-19 Unknown [facility] and Work Phone: (15 sources) Sulfamethoxazole / Trimethoprim; Translations: [Bactrim] Drug Allergy 11-11-19 Unknown [facility] and Work Phone: (14 sources) Rubbing Alcohol SOLN; Translations: [Rubbing Alcohol SOLN] Allergy to drug (finding) [facility] and Work Phone: (14 sources) Adhesive Tape TAPE; Translations: [Adhesive Tape TAPE] Allergy to drug (finding) [facility] and Work Phone: (14 sources) Latex Gloves MISC; Translations: [Latex Gloves MISC] Allergy to drug (finding) [facility] and Work Phone: (5 sources) insulin isophane / insulin, regular, human; Translations: [Humulin L SUSP] Drug Allergy [facility] DO Work Phone: (1 source) Bacitracin / Polymyxin B Drug Allergy 11-11-19 Unknown [facility] Work Phone: (6 sources) Benzalkonium; Translations: [BENZALKONIUM CHLORIDE] Drug Allergy 09-05-20 14 Hives, Other: See Comments [facility] (1 source) Hydrogen Peroxide Drug Allergy 11-11-19 [facility] Work Phone: (1 source) Isopropyl Alcohol Drug Allergy 11-11-19 [facility] Work Phone: (6 sources) Latex; Translations: [LATEX] Propensity to adverse reactions 11-11-19 Unknown, Other: See Comments [facility] Work Phone: (1 source) lente insulin, human Drug Allergy 11-11-19 [facility] Work Phone: (1 source) Neomycin Drug Allergy 03-16-20 [facility] Work Phone: (1 source) Adhesive Tape-Silicones Propensity to adverse reactions 11-11-19 Unknown [facility] (1 source) Gramicidins Drug Intolerance 03-16-20 [facility] Work Phone: (5 sources) Benzoyl Peroxide; Translations: [BENZOYL PEROXIDE] Drug Allergy 08-24-20 Other: See Comments [facility] (5 sources) Ethanol; Translations: [ETHYL ALCOHOL] Drug Allergy 08-24-20 Other: See Comments [facility] (5 sources) Hypochlorite; Translations: [BLEACH (SODIUM HYPOCHLORITE)] Drug Allergy 08-24-20 Other: See Comments [facility] (5 sources) Ondansetron; Translations: [ONDANSETRON] Drug Allergy 08-24-20 Other: See Comments [facility] (5 sources) Sulfonamides (Antibiotic); Translations: [SULFA (SULFONAMIDE ANTIBIOTICS)] Drug Allergy 08-24-20 Hives, Swelling [facility] (5 sources) trichloroacetaldehy de; Translations: [CHLORAL BETAINE] Drug Allergy 08-24-20 Other: See Comments [facility] Medications Current Medications Medication Drug Class(es) Dates [...] [Coronary atherosclerosis of unspecified type of vessel, grayling or graft] Onset: 11-11-2022 11-11-2022 Chronic Deficiency [...] follow-up examination] Episodic Other aftercare (1 source) nursing home (current) use of insulin; Translations: [Type 2 [...] 97.81 [degF] Xochitl Sheets DO Work Phone: [facility] 08-24-2023 09:04-0500 Diastolic blood pressure 78 mm[Hg] Xochitl Sheets DO Work Phone: [facility] 08-24-2023 09:04-0500 Heart rate 68 /min Xochitl Sheets DO Work Phone: [facility] 08-24-2023 09:04-0500 Respiratory rate 16 /min Xochitl Sheets DO Work Phone: [facility] 08-24-2023 09:04-0500 SaO2% (BldA) [Mass fraction] 99 % Xochitl Sheets DO Work Phone: [facility] 08-24-2023 09:04-0500 Systolic blood pressure 126 mm[Hg] Xochitl Sheets DO Work Phone: [facility] 06-18-2023 13:00-0400 Diastolic blood pressure 73 mm[Hg] Carolinesarah Sousa [facility] 06-18-2023 13:00-0400 Heart rate 75 /min Carolinesarah Sousa [facility] 06-18-2023 13:00-0400 Respiratory rate 18 /min Carolinesarah Sousa [facility] 06-18-2023 13:00-0400 SaO2% (BldA) [Mass fraction] 99 % Carolinesarah Sousa [facility] 06-18-2023 13:00-0400 Systolic blood pressure 181 mm[Hg] Caroline Sousa [facility] 06-18-2023 11:04-0400 Body height 170.1 cm Carolinesarah Sousa [facility] 06-18-2023 11:04-0400 Body temperature 97.88 [degF] Caroline Sousa [facility] 06-18-2023 11:04-0400 Body weight 126 kg Carolinesarah Sousa [facility] 03-16-2023 14:16-0400 Body height 170.2 cm Caroline Sousa DIE OUT WORKER-FUNERAL SERVICE APPRENTICE Work Phone: [facility] 03-16-2023 14:16-0400 Body mass index (BMI) [Ratio] 44.58 kg/m2 Caroline Sousa DIE OUT WORKER-FUNERAL SERVICE APPRENTICE Work Phone: [facility] 03-16-2023 14:16-0400 Body weight 129.1 kg Caroline Sousa DIE OUT WORKER-FUNERAL SERVICE APPRENTICE Work Phone: [facility] 03-16-2023 14:16-0400 Diastolic blood pressure 80 mm[Hg] Caroline Sousa DIE OUT WORKER-FUNERAL SERVICE APPRENTICE Work Phone: [facility] 03-16-2023 14:16-0400 Heart rate 89 /min Caroline Sousa DIE OUT WORKER-FUNERAL SERVICE APPRENTICE Work Phone: [facility] 03-16-2023 14:16-0400 SaO2% (BldA) [Mass fraction] 99 % Caroline Sousa DIE OUT WORKER-FUNERAL SERVICE APPRENTICE Work Phone: [facility] 03-16-2023 14:16-0400 Systolic blood pressure 130 mm[Hg] Caroline Sousa DIE OUT WORKER-FUNERAL SERVICE APPRENTICE Work Phone: [facility] 10-29-2022 10:29-0500 Body height 170.18 cm Caroline Sousa Work Phone: [facility] 205 DO Work Phone: 10-29-2022 10:29-0500 Diastolic blood pressure 82 mm[Hg] Caroline Sousa Work Phone: [facility] 205 DO Work Phone: 10-29-2022 10:29-0500 Heart rate 71 /min Caroline Sousa Work Phone: [facility] 205 DO Work Phone: 10-29-2022 10:29-0500 SaO2% (BldA) [Mass fraction] 100 % Caroline Sousa Work Phone: [facility] 205 DO Work Phone: 10-29-2022 10:29-0500 Systolic blood pressure 132 mm[Hg] Caroline Sousa Work Phone: [facility] 205 DO Work Phone: 06-23-2022 13:10-0400 Body height 170.18 cm Caroline Sousa Work Phone: [facility] 205 DO Work Phone: 06-23-2022 13:10-0400 Body mass index (BMI) [Ratio] 47.24 kg/m2 Caroline Sousa Work Phone: [facility] 205 DO Work Phone: 06-23-2022 13:10-0400 Body surface area Derived from formula 2.41 m2 Caroline Sousa Work Phone: [facility] 205 DO Work Phone: 06-23-2022 13:10-0400 Body weight 136.8 kg Caroline Sousa Work Phone: [facility] 205 DO Work Phone: 06-23-2022 13:10-0400 Diastolic blood pressure 80 mm[Hg] Caroline Sousa Work Phone: [facility] 205 DO Work Phone: 06-23-2022 13:10-0400 Heart rate 68 /min Caroline Sousa Work Phone: [facility] 205 DO Work Phone: 06-23-2022 13:10-0400 Systolic blood pressure 132 mm[Hg] Caroline Sousa Work Phone: [facility] 205 DO Work Phone: 05-20-2022 11:53-0400 Body height 170.18 cm Caroline Sousa Work Phone: [facility] Work Phone: 05-20-2022 11:53-0400 Body mass index (BMI) [Ratio] 35.42 kg/m2 Caroline Sousa Work Phone: [facility] Work Phone: 05-20-2022 11:53-0400 Body surface area Derived from formula 2.13 m2 Caroline Sousa Work Phone: [facility] Work Phone: 05-20-2022 11:53-0400 Body weight 102.57 kg Caroline Sousa [facility] Work Phone: 05-20-2022 11:53-0400 Diastolic blood pressure 84 mm[Hg] Caroline Sousa Work Phone: [facility] [employer] [facility] Work Phone: 05-20-2022 11:53-0400 Heart rate 74 /min Caroline Sousa Work Phone: [facility] [employer] [facility] Work Phone: 05-20-2022 11:53-0400 SaO2% (BldA) [Mass fraction] 99 % Caroline Sousa Work Phone: [facility] [employer] [facility] Work Phone: 05-20-2022 11:53-0400 Systolic blood pressure 144 mm[Hg] Caroline Sousa Work Phone: [facility] Work Phone: Encounters Encounter Date Encounter Type Care Provider Facility Start: 10-05-2023 End: 10-05-2023 ambulatory XOCHITL C SHEETS Facility:[facility] Start: 09-02-2023 Refill Xochitl So She ets DO Work Phone: [facility] Procedures Date Procedure Procedure Detail Performing Clinician Start: 04-20-2022 Colonoscopy Caroline bosch DIE OUT WORKER-FUNERAL SERVICE APPRENTICE Work Phone: Amputation of toe Caroline segovia [...] Screening for malign ant neoplasm of colon [facility] Start: 2026 Shingrix Vaccine (1 of 2) Shingrix Vaccine (1 of 2) [facility] Start: 2026 Zoster Vaccines (1 of 2) Zoste r Vaccines (1 of 2) [facility] Start: 08-24-2024 Annual PCP Team [employer] Librarian genoveva Disease Visit Annual PCP Team Chronic Disease Visit [facility] Start: 08-24-2024 BP Controlled (<130/80) BP Con trolled (<130/80) [facility] Start: 08-24-2024 Urine microalbumin profile DTaP,Tdap,Td Vaccine (1 - Tdap) [facility] Immunizations Immunization Date Immunization Notes Care Provider Guillermina link 08-04-2023 Influenza, injectabl e, Madin [place] Canine Kidney, quadrivalent with preservative Xohcitl Sheets DO Work Phone: [facility] 11-16-2022 Hepatitis B vaccine (recombinant), CpG adjuvanted Carolinesarah Sousa DIE OUT WORKER-FUNERAL SERVICE APPRENTICE Work Phone: [facility] Work Phone: 09-15-2022 Hepatitis B vaccine (recombinant), CpG adjuvanted Caroline Sousa DIE OUT WORKER-FUNERAL SERVICE APPRENTICE Work Phone: [facility] Work Phone: 08-17-2022 Hepatitis B vaccine (recombinant), CpG adjuvanted Caroline Sousa DIE OUT WORKER-FUNERAL SERVICE APPRENTICE Work Phone: [facility] Work Phone: 08-17-2022 Pneumococcal Conjuga te Pcv 20 Caroline Sousa DIE OUT WORKER-FUNERAL SERVICE APPRENTICE Work Phone: [facility] Work Phone: 07-20-2022 Hepatitis B vaccine (recombinant), CpG adjuvanted Caroline Sousa DIE OUT WORKER-FUNERAL SERVICE APPRENTICE Work Phone: [facility] Work Phone: 07-04-2022 influenza, injectabl e, quadrivalent, preservative free Xochitl Sheets DO Work Phone: [facility] 07-04-2022 influenza, seasonal, injectable Xochitl Sheets DO Work Phone: [facility] 06-22-2022 influenza, injectabl e, quadrivalent, preservative free Caroline Sousa DIE OUT WORKER-FUNERAL SERVICE APPRENTICE Work Phone: [facility] Work Phone: Payers Date Payer Category Payer Medicaid [id number] 2022 Medicaid [id number] 2015 Medicare [id number] 2015 Medicare [id number] 1975 Unknown [id number] 1975 Unknown [id number] 2.16. [id number] 1975 Unknown [id number] 2.16. [id number] 1975 Unknown [id number] 2.16. [id number] 1975 Unknown [id number] 2. [id number] 1975 Unknown [id number] 2.16. [id number] 1975 Unknown [id number] 2.16. [id number] 1975 Unknown [id number] 2.16. [id number] Unknown Social History Date Type Detail Facility Start: 03-16-2023 End: 08-24-2023 Non-smoker Non-smoker [facility] Work Phone: Tobacco smoking status [facility] Tobacco smoking consumption unknown [facility] Start: 1975 Sex Assigned At Not on file [facility] Start: 03-16-2023 End: 08-24-2023 Tobacco smoking status NHIS Ex-smoker [facility] Work Phone: End: 10-04-1994 History of tobacco use Current smoker [facility] Work Phone: End: 10-04-1994 History of tobacco use Cigarette Smoker [facility] Work Phone: Start: 03-16-2023 End: 08-24-2023 Tobacco use and exposure Smokeless tobacco non-user [facility] Work Phone: Start: 03-16-2023 End: 08-24-2023 Tobacco use panel [facility] Work Phone: Start: 2023 End: 03-16-2023 Exposure to SARS-CoV-2 (event) Not sure [facility] Start: 08-24-2023 Alcohol intake Ex-drinker (finding) [facility] National Score (1-100), lower number is lower risk 89 [facility] Clinical Notes 05-15-2022 to 10-13-2023 Telephone Encounter - Magui Vazquez MA - 09/02/2023 4:40 PM ESTTelephone Encounter - Xochitl Peters DO - 09/02/2023 10:40 AM ESTTelephone Encounter - Laura Oconnell MA - 08/25/2023 7:43 AM EST Note Date & Type Note Facility 10-13-2023 Note HNO ID: [id number] Author: CARO FERNANDO MA Service: ? Author Type: Communications Manager Type: Progress Notes Filed: 10/13/2023 16:33 Note Text: ED Follow Up: Patient discharged from [facility] ED on 10/07/23. 1. How are you feeling since your ED visit? Felling a little better Have your symptoms improved or resolved? Yes 2. Were you prescribed any medications while in the ED or advised to stop any medication? No - If yes, were you able to fill your prescriptions? Not applicable -if stopped medication, what was the medication? NA 3. Were you advised to schedule a follow up appointment with your provider? Yes - If no, Do you feel like you need an appointment scheduled? Not applicable - If yes, Do you need this scheduled now or has this already been scheduled? No 4. Were you able to contact the office or detention worker provider prior to your ED visit? No 5. Is there anything else I can do for you today? No [facility] 10-13-2023 Note Patient Outreach (AG INTMLW) XOCHITL CHERRY ([id number]) 1975 F DEF Date Time Provider Department 10/13/23 CARO FERNANDO AGINTMLW During your visit today, we recorded the following information about you: Caro Fernando MA 10/13/2023 4:33 PM Signed ED Follow Up: Patient discharged from [facility] ED on 10/07/23. 1. How are you feeling since your ED visit? Felling a little better Have your symptoms improved or resolved? Yes 2. Were you prescribed any medications while in the ED or advised to stop any medication? No - If yes, were you able to fill your prescriptions? Not applicable -if stopped medication, what was the medication? NA 3. Were you advised to schedule a follow up appointment with your provider? Yes - If no, Do you feel like you need an appointment scheduled? Not applicable - If yes, Do you need this scheduled now or has this already been scheduled? No 4. Were you able to contact the office or detention worker provider prior to your ED visit? No 5. Is there anything else I can do for you today? No Allergies As of Date: 10/13/2023 Noted Allergy Reaction BACITRACIN 08/24/2023 14 - Other: See Comments BENZOYL PEROXIDE 08/24/2023 14 - Other: See Comments BLEACH (SODIUM HYPOCHLORITE) 08/24/2023 14 - Other: See Comments CHLORAL BETAINE 08/24/2023 14 - Other: See Comments Comments: Chlora prep LATEX 08/24/2023 14 - Other: See Comments LIDOCAINE 08/24/2023 14 - Other: See Comments METFORMIN 08/24/2023 6 - Diarrhea 8 - GI Upset NEOSPORIN (BENZALKONIUM CHLORIDE) 08/24/2023 14 - Other: See Comments RUBBING ALCOHOL (ETHANOL) (ETHYL *08/24/2023 14 - Other: See Comments SULFA (SULFONAMIDE ANTIBIOTICS) 08/24/2023 4 - Hives 7 - Swelling ZOFRAN (ONDANSETRON) 08/24/2023 14 - Other: See Comments Comments: constipation Date Reviewed: 10/05/2023 Reviewed by: Xochitl Peters DO - Fully Assessed Prescriptions as of 10/13/2023 - ammonium lactate (LAC-HYDRIN) 12 % lotion Apply to affected area as needed. - sucroferric oxyhydroxide (VELPHORO) 500 mg chew Take 500 mg by mouth with meals. - Senna 8.6 mg tab Take 1 tablet by mouth two times a day. - promethazine (PHENERGAN) 25 mg tablet Take 1 tablet by mouth every 8 hours as needed for nausea/vomiting. - sucralfate (CARAFATE) 1 gram tablet Take 1 tablet by mouth three times a day. - amLODIPine (NORVASC) 5 mg tablet Take 1 tablet by mouth once daily. - albuterol HFA (PROVENTIL HFA, VENTOLIN HFA) 90 mcg/actuation inhaler Inhale 2 Puffs as instructed every 4 hours as needed for wheezing/shortness of breath. - albuterol (PROVENTIL) 2.5 mg /3 mL (0.083 %) nebulizer solution Use 3 mL via nebulizer every 4 hours as needed for wheezing/shortness of breath. - Nebulizers (VIXONE NEBULIZER-ADULT MASK) Nebulizer mask and tubing - diclofenac (VOLTAREN) 1 % topical gel Apply 2 g to affected area four times a day as needed. - bumetanide (BUMEX) 1 mg tablet Take 1 tablet by mouth two times a day. - azithromycin (ZITHROMAX Z-JENNIFER) 250 mg tablet 2 tablets by mouth first day then 1 tablet the next 4 days - fluconazole (DIFLUCAN) 150 mg tablet Take 1 pill now and 1 pill after you have finished the z-pack - Facial Mask misc 1 Each daily at bedtime. Variable concentrator mask - levothyroxine (SYNTHROID) 25 mcg tablet Take 1 tablet by mouth daily before breakfast. - gabapentin (NEURONTIN) 300 mg capsule Take 300 mg by mouth daily at bedtime. - folic acid/vit B complex and C (NEPHRO-SISSY ORAL) Take 1 tablet by mouth once daily. - ergocalciferol, vitamin D2, (VITAMIN D2 ORAL) Take by mouth. Given at dialysis unsure of dose - HYDROcodone-Acetaminophen (NORCO) 7.5-325 mg per tablet Take 1 tablet by mouth two times a day as needed for pain. - polyethylene glycol 3350 (MIRALAX ORAL) Take by mouth. As needed - insulin aspart U-100 (NOVOLOG FLEXPEN U-100 INSULIN) 100 unit/mL (3 mL) Inject 10 Units subcutaneously three times a day before meals. Plus sliding scale 5 units 0-150, 10 units 150-200, 15 units 200-300 - insulin detemir U-100 (LEVEMIR FLEXPEN) 100 unit/mL (3 mL) injection pen Inject 26 Units subcutaneously daily at bedtime. - OXYGEN, HOME THERAPY, 2 L/min by Nasal Cannula route. At night uses [facility] [phone] - losartan (COZAAR) 100 mg tablet Take 1 tablet by mouth once daily. - lamoTRIgine orally disintegrating (LAMICTAL ODT) 50 mg disintegrating tablet Take 1 tablet by mouth once daily. - Cetirizine 10 mg cap Take 1 capsule by mouth once daily. - atorvastatin (LIPITOR) 40 mg tablet Take 1 tablet by mouth once daily. - tamsulosin (FLOMAX) 0.4 mg Take 1 capsule by mouth once daily. - dicyclomine (BENTYL) 10 mg capsule Take 1 capsule by mouth two times a day. - pantoprazole DR (PROTONIX) 40 mg tablet Take 1 tablet by mouth once daily. - aspirin, enteric coated (ASPIRIN, ENTERIC COATED) 81 m (more content not included)... [facility] 10-05-2023 Note HNO ID: [id number] Author: Xochitl Peters, DO Service: ? Author [...] by Nasal Cannula route. At night uses [facility] [phone] losartan (COZAAR) 100 mg tablet Take 1 [...] visit. ACTIVE PROBLEM LIST Esrd Needing Dialysis ([facility]) Vascular Dialysis Catheter in Place ([facility]) Av Fistula ([facility]) Hyperlipidemia, Mixed Seasonal Allergies Gerd Without Esophagitis Vitamin D Deficiency Type 2 Diabetes Mellitus With Diabetic Neuropathy, With Long-Term Current Use of Insulin ([facility]) Foot Drop, Left Foot Ulcer of Left Heel and Midfoot ([facility]) Primary Amenorrhea Wheelchair Dependent Other Irritable Bowel Syndrome Diabetic Gastroparesis ([facility]) ([facility]) Mild Intermittent Asthma, Uncomplicated History of Cva (Cerebrovascular Accident) Primary Hypertension Recurrent Major Depressive Disorder, in Partial Remission ([facility]) Nocturnal Dyspnea Social History Tobacco Use Smoking status: Former Types: Cigarettes Quit date: 1994 Years since quittin.0 Smokeless tobacco: Never Substance Use Topics Alcohol use: Not Cu (more content not included)... [facility] 09-02-2023 Miscellaneous Notes Patient states that [...] Chela Davidson MA documented in this encounter [facility] 08-25-2023 Miscellaneous Notes Lm on pt. Vm test negative. (Ok per lifetime consent). Laura Oconnell MA ----- Message from Xochitl Peters DO sent at 08/24/2023 8:54 PM EST ----- Please notify pt her test was negative Xochitl Peters DO documented in this encounter [facility] 08-24-2023 Miscellaneous Notes Signed by Dr. Peters and faxed back to [phone]. Chela Davidson MA Fide ESCALANTEN for Oxygen Supplies placed in Dr. Peters green folder to be signed. Chela Davidson MA documented in this encounter [facility] 08-24-2023 Note HNO ID: [id number] Author: Xochitl Peters DO Service: ? Author Type: Physician Type: Progress Notes Filed: 09/04/2023 12:37 PM Note Text: SUBJECTIVE: 48 year old female here to establish. I have fully reviewed the past medical, surgical, social and family history and updated the Histories section of [facility]. Her former PCP was Ramona Anaya in [place]. Pt has a history of ESRD needing [...] DMII, but may have DMI. She sees [facility] She has chronic pain, and is under the care of [facility] She had a diabetic ulcer 4 years ago Since then she had removal of the left fifth metatarsal and left fifth toe She now has drop foot on the left, and has to wear a brace She sees [facility] in [place], who does her diabetic foot care Her foot ulcer just closed 2 weeks ago She will f/u with them on 09/16 She uses a wheelchair 95% of time She was bedridden for 2 years because of her left foot ulcers She now uses an electric wheelchair at home, and a manual wheelchair here. She was in the [place] ED on Wednesday She is on Keflex 500 mg qid for UTI, which she just started She had a positive urine test at the ED, but she has not had sexual intercourse in over 20 years. She was told by her former PCP that she needed to f/u with BOX SEALING MACHINE OPERATOR to confirm if this is accurate. She [...] Father Diabetes Mate (more content not included)... [facility] 08-24-2023 History of Presen t illness Narrative SUBJECTIVE: 48 year old female here to establish. I have fully reviewed the past medical, surgical, social and family history and updated the Histories section of [facility]. Her former PCP was Ramona Anaya in [place]. Pt has a history of ESRD needing [...] DMII, but may have DMI. She sees [facility] She has chronic pain, and is under the care of [place] [facility] She had a diabetic ulcer 4 years ago Since then she had removal of the left fifth metatarsal and left fifth toe She now has drop foot on the left, and has to wear a brace She sees [facility] in [place], who does her diabetic foot care Her foot ulcer just closed 2 weeks ago She will f/u with them on 09/16 She uses a wheelchair 95% of time She was bedridden for 2 years because of her left foot ulcers She now uses an electric wheelchair at home, and a manual wheelchair here. She was in the [place] ED on Wednesday She is on Keflex 500 mg qid for UTI, which she just started She had a positive urine test at the ED, but she has not had sexual intercourse in over 20 years. She was told by her former PCP that she needed to f/u with BOX SEALING MACHINE OPERATOR to confirm if this is accurate. She [...] neuropathy, with long-term current use of insulin ([facility]) - ICD9: 250.60, 357.2, V58.67, ICD10: E11.40, Z79.4 (primary diagnosis) Continue current meds 2. ESRD needing dialysis ([facility]) - ICD9: 585.6, ICD10: N18.6, Z99.2 Under the care of diagnostics sales developer 3. Primary hypertension - ICD9: 401.9, ICD10: I10 controlled 4. Vascular dialysis catheter in place ([facility]) - ICD9: V45.11, ICD10: Z99.2 5. AV fistula ([facility]) - ICD9: 447.0, ICD10: I77.0 [...] ICD9: 564.1, ICD10: K58.8 14. Diabetic gastroparesis ([facility]) - ICD9: 250.60, 536.3, ICD10: E11.43, K31.84 [...] Rx for shoes for ankle braces to [employer] Xochitl Peters DO I spent 45 minutes in the visit, with more than 50% of the total [id number] time of the visit in counseling / coordination of care. documented in this encounter [facility] 03-22-2023 Evaluation + Plan note Associated Problem(s): Wound of left foot Sees podiatry on Wednesday [facility] Work Phone: 03-22-2023 Evaluation + Plan note Associated Problem(s): Gastroparesis Promethazine 25 mg every 8 hours as needed for N&V- refilled Sees GI in [place] [facility] Work Phone: 03-22-2023 Miscellaneous Notes Associated Problem(s): Wound of left foot Sees podiatry on Wednesday Associated Problem(s): Gastroparesis Promethazine 25 mg every 8 hours as needed for N&V- refilled Sees GI in [place] Associated Problem(s): Benign essential hypertension BP is <130/80. Continue to take medications as prescribed. Continue diet (low salt) and exercise as advised. Associated Problem(s): AV fistula ([facility]) Managed by nephrology [place] Associated Problem(s): Class 3 severe obesity due to excess calories with serious comorbidity and body mass index (BMI) of 40.0 to 44.9 in adult ([facility]/HCC) Pt advised to institute a healthy, well-balanced meal with portion control and to exercise daily for at least 30-60 minutes. Associated Problem(s): Type 2 diabetes mellitus with circulatory disorder, with long-term current use of insulin ([facility]) [facility] [place] Associated Problem(s): Mild intermittent asthma without complication Albuterol inhaler/nebulizer- refilled Associated Problem(s): End stage renal disease ([facility]/HCC) Goes to dialysis 3 x week. documented in this encounter [facility] Work Phone: 03-22-2023 Evaluation + Plan note Associated Problem(s): Benign essential hypertension BP is <130/80. Continue to take medications as prescribed. Continue diet (low salt) and exercise as advised. [facility] Work Phone: 03-22-2023 Evaluation + Plan note Associated Problem(s): AV fistula ([facility]) Managed by nephrology [place] [facility] Work Phone: 03-22-2023 Evaluation + Plan note Associated Problem(s): Class 3 severe obesity due to excess calories with serious comorbidity and body mass index (BMI) of 40.0 to 44.9 in adult ([facility]) Pt advised to institute a healthy, well-balanced meal with portion control and to exercise daily for at least 30-60 minutes. [facility] Work Phone: 03-16-2023 Evaluation + Plan note Associated Problem(s): Type 2 diabetes mellitus with circulatory disorder, with long-term current use of insulin ([facility]) [facility] [place] [facility] Work Phone: 03-16-2023 Evaluation + Plan note Associated Problem(s): Mild intermittent asthma without complication Albuterol inhaler/nebulizer- refilled [facility] Work Phone: 03-16-2023 Evaluation + Plan note Associated Problem(s): End stage renal disease ([facility]) Goes to dialysis 3 x week. T [facility] Work Phone: 03-16-2023 History of Presen t illness Narrative Subjective Patient ID: Xochitl Cherry is a 48 y.o. female who presents for [place] discharge follow up; med review and refills. KATHERINE Neri returns for [place] discharge follow up. She reports she was in the [place] for deconditioning after getting her fistula revised [...] to the area to help her out. [facility] for PT/OT. DM: follows with Dr. Brady-endocrinology in [place]. Asthma/intermittent: Uses albuterol inhaler as needed. Denies [...] nausea or vomiting. End stage renal disease ([facility]) Chronic migraine without aura without status migrainosus, not intractable Type 2 diabetes mellitus with other circulatory complication, with long-term current use of insulin ([facility]) Current mild episode of major depressive disorder without prior episode ([facility]) AV fistula ([facility]) Benign essential hypertension Class 3 severe obesity due to excess calories with serious comorbidity and body mass index (BMI) of 40.0 to 44.9 in adult ([facility]) Problem List Items Addressed This Visit AV fistula ([facility]) Managed by nephrology [place] Benign essential hypertension BP is <130/80. Continue to take medications as prescribed. Continue diet (low salt) and exercise as advised. Current mild episode of major depressive disorder without prior episode ([facility]) End stage renal disease ([facility]) Goes to dialysis 3 x week. Gastroparesis Promethazine 25 mg every 8 hours as needed for N&V- refilled Sees GI in [place] [facility] promethazine (Phenergan) 25 mg tablet Migraines Mild intermittent asthma without complication - Primary Albuterol inhaler/nebulizer- refilled [facility] albuterol (Ventolin HFA) 90 mcg/actuation inhaler albuterol 2.5 mg /3 mL (0.083 %) nebulizer solution Type 2 diabetes mellitus with circulatory disorder, with long-term current use of insulin ([facility]) [facility] [place] Class 3 severe obesity due to excess calories with serious comorbidity and body mass index (BMI) of 40.0 to 44.9 in adult ([facility]) Pt advised to institute a healthy, well-balanced meal with portion control and to exercise daily for at least 30-60 minutes. Follow up in October for Medicare wellness exam. Gets labs done at dialysis and endocrinology. documented in this encounter [facility] Work Phone: 03-16-2023 Instructions SUSANNA Cavanaugh - 03/16/2023 2:00 PM EDT BMI was above normal measurement. Current weight: Weight change since last visit (-) denotes wt loss Weight loss needed to achieve BMI 25: Lbs Weight loss needed to achieve BMI 30: Lbs Provided instructions on dietary changes Provided instructions on exercise documented in this encounter [facility] Work Phone: 09-07-2022 History of Presen t illness Narrative Halle returns for hospital follow up and renewal of [facility] services.November 12 is seeing Endocrinology Jesus not need iron or vitamin d as she gets these at dialysis.Was last in September 07 and then went to [facility] for 21 days and then came out on September 26.Neurology: has not been seen/ Was to follow up but did not hear from anyone.may need fistula replaced. has consult today in [place].Polyneuropathy: needs refill on Gabapentin 300 mg at [...] Possible surgery to have another one placed. [facility]. [facility] 205 DO Work Phone: 09-07-2022 History of Presen t illness Narrative Halle returns for hospital follow up and renewal of [facility] services.November 12 is seeing Endocrinology Jesus not need iron or vitamin d as she gets these at dialysis.Was last in September 07 and then went to [facility] for 21 days and then came out on September 26.Neurology: has not been seen/ Was to follow up but did not hear from anyone.may need fistula replaced. has consult today in [place].Polyneuropathy: needs refill on Gabapentin 300 mg at [...] Possible surgery to have another one placed. [facility]. [facility] 205 DO Work Phone: 05-15-2022 History of Presen [...] in early ocial Hx:Tobacco: DeniesETOH: DeniesDrugs: DeniesCaffeine: [facility] Work Phone: [facility] Mild intermittent asthma without complication- Primary Gastroparesis End stage renal disease ([facility]) End stage renal disease Chronic migraine without aura without status migrainosus, not intractable Type 2 diabetes mellitus with other circulatory complication, with long-term current use of insulin ([facility]) Current mild episode of major depressive disorder without prior episode ([facility]) AV fistula ([facility]) Benign essential hypertension Essential hypertension, benign Class 3 severe obesity due to excess calories with serious comorbidity and body mass index (BMI) of 40.0 to 44.9 in adult ([facility]) documented in this encounter [facility] Work Phone: Evaluation note* Diagnosis Type 2 diabetes mellitus with diabetic neuropathy, with long-term current use of insulin ([facility])- Primary ESRD needing dialysis ([facility]) End stage renal disease Primary hypertension Unspecified essential hypertension Vascular dialysis catheter in place ([facility]) Renal dialysis status AV fistula ([facility]) Arteriovenous fistula, acquired Hyperlipidemia, mixed Mixed hyperlipidemia Seasonal allergies Allergic rhinitis, cause unspecified GERD without esophagitis Esophageal reflux Vitamin D deficiency Unspecified vitamin D deficiency Primary amenorrhea Absence of menstruation Foot drop, left foot Wheelchair dependent Wheelchair dependence Other irritable bowel syndrome Diabetic gastroparesis ([facility]) Type II or unspecified type diabetes mellitus [...] ankle and foot documented in this encounter [facility] for [facility]ative[facility] Diagnostic Procedure Only (Routine) - Pending Review Specialty Diagnoses / Procedures Referred By Jackson t Referred To Contact [facility] Diagnoses Encounter for screening mammogram for breast cancer Procedures RAMBO SCREENING SCREENING MAMMOGRAPHY BI 2-VIEW BREAST INC Xochitl Roth DO [address] [place] [address] [facility] [address] [place] [address] Referral ID Status Reason Start Date Expiration Date Visits Requested Visits Authorized [id number] Pending Review Auto-Generat ed Referral 3 09/22/2024 1 1 [facility] Chief Complaint Pt presents to establish new PCP; previous pt of [facility] in [place], [place]; currently on dialysis; needing HHC with PT and OT; needing new Disability Placard.Pt presents for hospital f/u from Stroke in August followed by [facility] stay. Released 09/26/22. Would like to discuss medications, states she is taking Losartan potassium and should not be on potassium.Pt presents for hospital f/u from Stroke in August followed by [facility] stay. Released 09/26/22. Would like to discuss [...] without status migrainosus, not intractable Caroline Sousa, FUNERAL SERVICE APPRENTICE [facility] [place] [address] [facility] Referral ID Status Reason Start Date Expiration Date Visits Re quested Visits Authorized [id number] Closed 11/12/2022 11/12/2023 1 1 Summary Purpose Advance Directives No Advanced Directives Records FoundNo Advanced Directives Records FoundNo Advanced Directives Records FoundNo Advanced Directives Records Found Additional Source Comments INFORMATION SOURCE (unrecogn ized section and content) DATE CREATED AUTHOR AUTHOR'S ORGANIZ ATION 11/13/2022 [employer] DATE CREATED AUTHOR AUTHOR'S ORGANIZ ATION 05/14/2023 [facility] DATE CREATED AUTHOR AUTHOR'S ORGANIZ ATION 10/14/2023 [employer] [place] [facility] [facility] Care Teams (unrecognized sec tion and content) Quoter Relationship Specialty Start Date End Date Xochitl Peters DO [address] [place] [id number] PCP - General Family Medicine 08/24/23 YariellaMaddy gonzales MD [address] [place] [id number] Family Medicine 08/24/23 Quoter Relationship Specialty Start Date End Date Xochitl Peters DO [address] [place] [id number] PCP - General Family [facility] 08/24/23 YariellaMaddy gonzales MD [address] [place] [id number] Family [facility] 08/24/23 Quoter Relationship Specialty Start Date End Date Xochitl Peters DO [address] [place] [id number] PCP - General Family [facility] 08/24/23 YariellaMaddy gonzales MD [address] [place] [id number] Family Medicine 08/24/23 <item> Privacy Markings (unrecogniz ed section [...] or prosecute any alcohol or drug abuse patient.[facility] the event this information is protected by the Federal Confidentiality of Alcohol and Drug Abuse Patient Records regulations: The Federal rules restrict any use of the information to criminally investigate or prosecute any alcohol or drug abuse patient.[facility] the event this information is protected by the Federal Confidentiality of Alcohol and Drug Abuse Patient Records regulations: The Federal rules restrict any use of the information to criminally investigate or prosecute any alcohol or drug abuse patient.[facility] the event this information is protected by the Federal Confidentiality of Alcohol and Drug Abuse Patient Records regulations: The Federal rules restrict any use of the information to criminally investigate or prosecute any alcohol or drug abuse patient.[facility] Reason for Visit (unrecogniz ed section and content) Reason Comments Results Reason Onset Date Comments Refill Request 09/02/2023 Reason Comments New Patient Establish care previ ous pcp was Dr. Anaya in [place]. Needs medication refills FOR RECORDS PERTAINING TO [...] BE BASED ON THE PRIMARY CLINICAL RECORDS. [facility] [employer] [facility]. provides no warranty or guarantee of the accuracy or completeness of information in this document.
[2023-10-23 14:26] LABS: Anion Gap 10 (5-15); BUN 54 mg/dL (7-18); BUN/Creat Ratio 9.1 RATIO (10-20); Calcium,Total 9.2 mg/dL (8.5-10.1); Chloride 99 mmol/L (98-107); Creatinine, Serum 5.94 mg/dL (0.55-1.02); EST Glomerular Filtration Rate 8 mL/min (>60); Est Glom Filt Rate - Afr Amer 10 mL/min (>60); Glucose 713 mg/dL (74-106); Lipase 34 U/L (13-75); Potassium 4.4 mmol/L (3.5-5.1); Sodium Level 131 mmol/L (136-145); Troponin-I HS 24 pg/mL (3.0-54.0)
[2023-10-23 15:44] LABS: Blood Gas Specimen Type VEN; O2 Delivery Device Room Air; SITE Not entered; VBG BASE EXCESS -8 mmol/L (-1.0-3.5); VBG Bicarbonate 20 mmol/L (22-26); VBG PO2 30 mmHg (25-40); VBG SO2 47 % (50-70); VBG TCO2 21 mmol/L (23-33); VBG pH 7.24 (7.32-7.42)
--- OUTSIDE RECORDS SUMMARY | 2023-10-23 16:22 | XMS RPT_ITS | CCD ---
Author Name Unknown Address [address] [place] [address] Organization [facility] Care Team Providers Care Health Promotion Manager Name Role Phone Caroline Sousa Unavailable Unavailable Unavailable Unavailable Primary Care Provider Unavailkwaku bosch Lars, Ms. Caroline Villanuevay Attending Unavailable Lars, . Caroline Dedra Primary Care Unavailable Sousa [employer] HEMMER[employer]MARTHA Caroline Kayden Primary Care Provider [phone]( [phone] Sousa, Caroline Dedra Referring Unavailable Sousa, Ms. [...] Xochitl Peters DO Primary Care Provider [phone] Maddy Anaya MD Unavailable SHEETS, XOCHITL C [...] Drug Allergy 11-11-19 Unknown, Other: See Comments [facility] and Work Phone: (14 sources) Bacitracin / Neomycin / Polymyxin B; Translations: [Neosporin OINT] Drug Allergy [facility] Work Phone: (14 sources) Hydrogen Peroxide; Translations: [PX Hydrogen Peroxide SOLN] Drug Allergy [facility] Work Phone: (20 sources) Lidocaine; Translations: [lidocaine] Drug Allergy 11-11-19 Unknown, Other: See Comments [facility] Work Phone: (20 sources) metFORMIN; Translations: [metformin] Drug Allergy 11-11-19 Unknown, Diarrhea, GI Upset [facility] and Work Phone: (15 sources) Polymyxin B; Translations: [Polymyxin B Sulfate SOLR] Drug Allergy 11-11-19 Unknown [facility] and Work Phone: (15 sources) Sulfamethoxazole / Trimethoprim; Translations: [Bactrim] Drug Allergy 11-11-19 Unknown [facility] Work Phone: (14 sources) Rubbing Alcohol SOLN; Translations: [Rubbing Alcohol SOLN] Allergy to drug (finding) [facility] Work Phone: (14 sources) Adhesive Tape TAPE; Translations: [Adhesive Tape TAPE] Allergy to drug (finding) [facility] Work Phone: (14 sources) Latex Gloves MISC; Translations: [Latex Gloves MISC] Allergy to drug (finding) [facility] Work Phone: (5 sources) insulin isophane / insulin, regular, human; Translations: [Humulin L SUSP] Drug Allergy [facility] DO Work Phone: (1 source) Bacitracin / Polymyxin B Drug Allergy 11-11-19 Unknown [facility] Work Phone: (6 sources) Benzalkonium; Translations: [BENZALKONIUM CHLORIDE] Drug Allergy 09-05-20 14 Hives, Other: See Comments [facility] (1 source) Hydrogen Peroxide Drug Allergy 11-11-19 [facility] Work Phone: (1 source) Isopropyl Alcohol Drug Allergy 11-11-19 [facility] Work Phone: (6 sources) Latex; Translations: [LATEX] Propensity to adverse reactions 11-11-19 Unknown, Other: See Comments [facility] Work Phone: (1 source) lente insulin, human Drug Allergy 11-11-19 [facility] Work Phone: (1 source) Neomycin Drug Allergy 03-16-20 [facility] Work Phone: (1 source) Adhesive Tape-Silicones Propensity to adverse reactions 11-11-19 Unknown [facility] (1 source) Gramicidins Drug Intolerance 03-16-20 [facility] Work Phone: (5 sources) Benzoyl Peroxide; Translations: [BENZOYL PEROXIDE] Drug Allergy 08-24-20 Other: See Comments [facility] (5 sources) Ethanol; Translations: [ETHYL ALCOHOL] Drug Allergy 08-24-20 Other: See Comments [facility] (5 sources) Hypochlorite; Translations: [BLEACH (SODIUM HYPOCHLORITE)] Drug Allergy 08-24-20 Other: See Comments [facility] (5 sources) Ondansetron; Translations: [ONDANSETRON] Drug Allergy 08-24-20 Other: See Comments [facility] (5 sources) Sulfonamides (Antibiotic); Translations: [SULFA (SULFONAMIDE ANTIBIOTICS)] Drug Allergy 08-24-20 Hives, Swelling [facility] (5 sources) trichloroacetaldehy de; Translations: [CHLORAL BETAINE] Drug Allergy 08-24-20 Other: See Comments [facility] Medications Current Medications Medication Drug Class(es) Dates [...] [Coronary atherosclerosis of unspecified type of vessel, [place] or graft] Onset: 11-11-2022 11-11-2022 Chronic Deficiency [...] follow-up examination] Episodic Other aftercare (1 source) care home (current) use of insulin; Translations: [Type [...] 97.81 [degF] Xochitl Sheets DO Work Phone: [facility] 08-24-2023 09:04-0500 Diastolic blood pressure 78 mm[Hg] Xochitl Sheets DO Work Phone: [facility] 08-24-2023 09:04-0500 Heart rate 68 /min Xochitl Sheets DO Work Phone: [facility] 08-24-2023 09:04-0500 Respiratory rate 16 /min Xochitl Sheets DO Work Phone: [facility] 08-24-2023 09:04-0500 SaO2% (BldA) [Mass fraction] 99 % Xochitl Sheets DO Work Phone: [facility] 08-24-2023 09:04-0500 Systolic blood pressure 126 mm[Hg] Xochitl Sheets DO Work Phone: [facility] 06-18-2023 13:00-0400 Diastolic blood pressure 73 mm[Hg] Carolinesarah Sousa [facility] 06-18-2023 13:00-0400 Heart rate 75 /min Carolinesarah Sousa [facility] 06-18-2023 13:00-0400 Respiratory rate 18 /min Carolinesarah Sousa [facility] 06-18-2023 13:00-0400 SaO2% (BldA) [Mass fraction] 99 % Carolinesarah Sousa [facility] 06-18-2023 13:00-0400 Systolic blood pressure 181 mm[Hg] Caroline Sousa [facility] 06-18-2023 11:04-0400 Body height 170.1 cm Carolinesarah Sousa [facility] 06-18-2023 11:04-0400 Body temperature 97.88 [degF] Caroline Sousa [facility] 06-18-2023 11:04-0400 Body weight 126 kg Carolinesarah Sousa [facility] 03-16-2023 14:16-0400 Body height 170.2 cm Caroline Sousa [employer]DIRECT[employer] SALES Work Phone: [facility] 03-16-2023 14:16-0400 Body mass index (BMI) [Ratio] 44.58 kg/m2 Caroline Sousa [employer]DIRECT[employer] SALES Work Phone: [facility] 03-16-2023 14:16-0400 Body weight 129.1 kg Caroline Sousa [employer]DIRECT[employer] Work Phone: [facility] 03-16-2023 14:16-0400 Diastolic blood pressure 80 mm[Hg] Caroline Sousa [employer]DIRECT[employer] SALES Work Phone: [facility] 03-16-2023 14:16-0400 Heart rate 89 /min Caroline Sousa [employer]DIRECT[employer] Work Phone: [facility] 03-16-2023 14:16-0400 SaO2% (BldA) [Mass fraction] 99 % Caroline Sousa [employer]DIRECT[employer] SALES Work Phone: [facility] 03-16-2023 14:16-0400 Systolic blood pressure 130 mm[Hg] Caroline Sousa [employer]DIRECT[employer] SALES Work Phone: [facility] 10-29-2022 10:29-0500 Body height 170.18 cm [...] height 170.18 cm Caroline Sousa Work Phone: [facility] Work Phone: 05-20-2022 11:53-0400 Body mass index (BMI) [Ratio] 35.42 kg/m2 Caroline Sousa Work Phone: [facility] Work Phone: 05-20-2022 11:53-0400 Body surface area Derived from formula 2.13 m2 Caroline Sousa Work Phone: [facility] Work Phone: 05-20-2022 11:53-0400 Body weight 102.57 kg Caroline Sousa Work Phone[facility] Work Phone: 05-20-2022 11:53-0400 Diastolic blood pressure 84 mm[Hg] Caroline Sousa Work Phone: [facility] [employer] [facility] Work Phone: 05-20-2022 11:53-0400 Heart rate 74 /min Caroline Sousa Work Phone: [facility] [employer] [facility] Work Phone: 05-20-2022 11:53-0400 SaO2% (BldA) [Mass fraction] 99 % Caroline Sousa Work Phone: [employer] [facility] Work Phone: 05-20-2022 11:53-0400 Systolic blood pressure 144 mm[Hg] Caroline Sousa Work Phone: [facility] [employer] [facility] Work Phone: Encounters Encounter Date Encounter Type Care Provider Facility Start: 10-05-2023 End: 10-05-2023 ambulatory XOCHITL C SHEETS Facility:[facility] Start: 09-02-2023 Refill Xochitl So She ets DO Work Phone: [facility] Procedures Date Procedure Procedure Detail Performing Clinician Start: 04-20-2022 Colonoscopy Caroline bosch [employer]DIRECTOR SALES Work Phone: Amputation of toe Caroline segovia [...] Screening for malign ant neoplasm of colon [facility] Start: 2026 Shingrix Vaccine (1 of 2) Shingrix Vaccine (1 of 2) [facility] Start: 2026 Zoster Vaccines (1 of 2) Zoste r Vaccines (1 of 2) [facility] Start: 08-24-2024 Annual PCP Team Sanitation Supervisor genoveva Disease Visit Annual PCP Team Chronic Disease Visit [facility] Start: 08-24-2024 BP Controlled (<130/80) BP Con trolled (<130/80) [facility] Start: 08-24-2024 Urine microalbumin profile DTaP,Tdap,Td Vaccine (1 - Tdap) [facility] Immunizations Immunization Date Immunization Notes Care Provider Guillermina link 08-04-2023 Influenza, injectabl e, Madin [place] Canine Kidney, quadrivalent with preservative Xochitl Sheets DO Work Phone: [facility] 11-16-2022 Hepatitis B vaccine (recombinant), CpG adjuvanted Carolinesarah Sousa [employer]DIRECTOR SALES Work Phone: [facility] Work Phone: 09-15-2022 Hepatitis B vaccine (recombinant), CpG adjuvanted Caroline Sousa [employer]DIRECT[employer] Work Phone: [facility] Work Phone: 08-17-2022 Hepatitis B vaccine (recombinant), CpG adjuvanted Caroline Sousa [employer]DIRECT[employer]ES Work Phone: [facility] Work Phone: 08-17-2022 Pneumococcal Conjuga te Pcv 20 Caroline Sousa [employer]DIRECT[employer] Work Phone: [facility] Work Phone: 07-20-2022 Hepatitis B vaccine (recombinant), CpG adjuvanted Caroline Sousa [employer]DIRECT[employer] SALES Work Phone: [facility] Work Phone: 07-04-2022 influenza, injectabl e, quadrivalent, preservative free Xochitl Sheets DO Work Phone: [facility] 07-04-2022 influenza, seasonal, injectable Xochitl Sheets DO Work Phone: [facility] 06-22-2022 influenza, injectabl e, quadrivalent, preservative free Caroline Sousa [employer] H[employer]DIRECTOR SALES Work Phone: [facility] Work Phone: Payers Date Payer Category Payer Medicaid [id number] 2022 Medicaid [id number] 2015 Medicare [id number] 2015 Medicare [id number] 1975 Unknown [id number] 1975 Unknown [id number] 2.16. [id number] 1975 Unknown [id number] 2.16. [id number] 1975 Unknown [id number] 2.16. [id number] 1976 Unknown [id number] 2. [id number] 1976 Unknown [id number] 2.16. [id number] 1975 Unknown [id number] 2.16. [id number] 1975 Unknown [id number] 2.16. [id number] Unknown Social History Date Type Detail Facility Start: 03-16-2023 End: 08-24-2023 Non-smoker Non-smoker [facility] Work Phone: Tobacco smoking status [facility] Tobacco smoking consumption unknown [facility] Start: 1975 Sex Assigned At Not on file [facility] Start: 03-16-2023 End: 08-24-2023 Tobacco smoking status NHIS Ex-smoker [facility] Work Phone: End: 10-04-1994 History of tobacco use Current smoker [facility] Work Phone: End: 10-04-1994 History of tobacco use Cigarette Smoker [facility] Work Phone: Start: 03-16-2023 End: 08-24-2023 Tobacco use and exposure Smokeless tobacco non-user [facility] Work Phone: Start: 03-16-2023 End: 08-24-2023 Tobacco use panel [facility] Work Phone: Start: 2023 End: 03-16-2023 Exposure to SARS-CoV-2 (event) Not sure [facility] Start: 08-24-2023 Alcohol intake Ex-drinker (finding) [facility] National Score (1-100), lower number is lower risk 89 [facility] Clinical Notes 05-15-2022 to 10-13-2023 Telephone Encounter - Magui Vazquez MA - 09/02/2023 4:40 PM ESTTelephone Encounter - Xochitl Peters DO - 09/02/2023 10:40 AM ESTTelephone Encounter - Laura Oconnell MA - 08/25/2023 7:43 AM EST Note Date & Type Note Facility 10-13-2023 Note HNO ID: [id number] Author: CARO FERNANDO MA Service: ? Author Type: Elastic Yarn Twister Type: Progress Notes Filed: 10/13/2023 16:33 Note Text: ED Follow Up: Patient discharged from [facility] ED on 10/07/23. 1. How are you [...] you able to contact the office or patrol conductor provider prior to your ED visit? No 5. Is there anything else I can do for you today? No [facility] 10-13-2023 Note Patient Outreach (AG INTMLW) XOCHITL CHERRY ([id number]) 1975 F DEF Date Time Provider Department 10/13/23 CARO FERNANDO AGINTMLW During your visit today, we recorded the following information about you: Caro Fernando MA 10/13/2023 4:33 PM Signed ED Follow Up: Patient discharged from [facility] ED on 10/07/23. 1. How are you [...] you able to contact the office or patrol conductor provider prior to your ED visit? No [...] by Nasal Cannula route. At night uses [facility] [phone] - losartan (COZAAR) 100 mg tablet Take [...] COATED) 81 m (more content not included)... [facility] 10-05-2023 Note HNO ID: [id number] Author: Xochitl Peters, DO Service: ? Author [...] by Nasal Cannula route. At night uses [facility] [phone] losartan (COZAAR) 100 mg tablet Take 1 [...] visit. ACTIVE PROBLEM LIST Esrd Needing Dialysis ([facility]) Vascular Dialysis Catheter in Place ([facility]) Av Fistula ([facility]) Hyperlipidemia, Mixed Seasonal Allergies Gerd Without Esophagitis Vitamin D Deficiency Type 2 Diabetes Mellitus With Diabetic Neuropathy, With Long-Term Current Use of Insulin ([facility]) Foot Drop, Left Foot Ulcer of Left Heel and Midfoot ([facility]) Primary Amenorrhea Wheelchair Dependent Other Irritable Bowel Syndrome Diabetic Gastroparesis ([facility]) ([facility]) Mild Intermittent Asthma, Uncomplicated History of Cva (Cerebrovascular Accident) Primary Hypertension Recurrent Major Depressive Disorder, in Partial Remission ([facility]) Nocturnal Dyspnea Social History Tobacco Use Smoking status: Former Types: Cigarettes Quit date: 1994 Years since quittin.0 Smokeless tobacco: Never Substance Use Topics Alcohol use: Not Cu (more content not included)... [facility] 09-02-2023 Miscellaneous Notes Patient states that she [...] Chela Davidson MA documented in this encounter [facility] 08-25-2023 Miscellaneous Notes Lm on pt. Vm test negative. (Ok per lifetime consent). Laura Oconnell MA ----- Message from Xochitl Peters DO sent at 08/24/2023 8:54 PM EST ----- Please notify pt her test was negative Xochitl Peters DO documented in this encounter [facility] 08-24-2023 Miscellaneous Notes Signed by Dr. Peters and faxed back to [phone]. Chela Davidson MA Fide ESCALANTEN for Oxygen Supplies placed in Dr. Peters green folder to be signed. Chela Davidson MA documented in this encounter [facility] 08-24-2023 Note HNO ID: [id number] Author: Xochitl Peters DO Service: ? Author Type: Physician Type: Progress Notes Filed: 09/04/2023 12:37 PM Note Text: SUBJECTIVE: 48 year old female here to establish. I have fully reviewed the past medical, surgical, social and family history and updated the Histories section of [facility]. Her former PCP was Ramona Anaya in [place]. Pt has a history of ESRD needing [...] DMII, but may have DMI. She sees [place] [facility] She has chronic pain, and is under the care of [facility] She had a diabetic ulcer 4 years ago Since then she had removal of the left fifth metatarsal and left fifth toe She now has drop foot on the left, and has to wear a brace She sees [facility] in [place], who does her diabetic foot care Her foot ulcer just closed 2 weeks ago She will f/u with them on 09/16 She uses a wheelchair 95% of time She was bedridden for 2 years because of her left foot ulcers She now uses an electric wheelchair at home, and a manual wheelchair here. She was in the [place] ED on Wednesday She is on Keflex 500 mg qid for UTI, which she just started She had a positive urine test at the ED, but she has not had sexual intercourse in over 20 years. She was told by her former PCP that she needed to f/u with PRODUCT TECHNOLOGY SCIENTIST to confirm if this is accurate. She [...] Father Diabetes Mate (more content not included)... [facility] 08-24-2023 History of Presen t illness Narrative SUBJECTIVE: 48 year old female here to establish. I have fully reviewed the past medical, surgical, social and family history and updated the Histories section of [facility]. Her former PCP was Ramona Anaya in [place]. Pt has a history of ESRD needing [...] DMII, but may have DMI. She sees [place] [facility] She has chronic pain, and is under the care of [place] [facility] She had a diabetic ulcer 4 years ago Since then she had removal of the left fifth metatarsal and left fifth toe She now has drop foot on the left, and has to wear a brace She sees [facility] in [place], who does her diabetic foot care Her foot ulcer just closed 2 weeks ago She will f/u with them on 09/16 She uses a wheelchair 95% of time She was bedridden for 2 years because of her left foot ulcers She now uses an electric wheelchair at home, and a manual wheelchair here. She was in the [place] ED on Wednesday She is on Keflex 500 mg qid for UTI, which she just started She had a positive urine test at the ED, but she has not had sexual intercourse in over 20 years. She was told by her former PCP that she needed to f/u with PRODUCT TECHNOLOGY SCIENTIST to confirm if this is accurate. She [...] neuropathy, with long-term current use of insulin ([facility]) - ICD9: 250.60, 357.2, V58.67, ICD10: E11.40, Z79.4 (primary diagnosis) Continue current meds 2. ESRD needing dialysis ([facility]) - ICD9: 585.6, ICD10: N18.6, Z99.2 Under the care of employee communications manager 3. Primary hypertension - ICD9: 401.9, ICD10: I10 controlled 4. Vascular dialysis catheter in place ([facility]) - ICD9: V45.11, ICD10: Z99.2 5. AV fistula ([facility]) - ICD9: 447.0, ICD10: I77.0 6. Hyperlipidemia, [...] ICD9: 564.1, ICD10: K58.8 14. Diabetic gastroparesis ([facility]) - ICD9: 250.60, 536.3, ICD10: E11.43, K31.84 [...] Rx for shoes for ankle braces to [employer] Xochitl Peters DO I spent 45 minutes in the visit, with more than 50% of the total [id number] time of the visit in counseling / coordination of care. documented in this encounter [facility] 03-22-2023 Evaluation + Plan note Associated Problem(s): Wound of left foot Sees podiatry on Wednesday [facility] Work Phone: 03-22-2023 Evaluation + Plan note Associated Problem(s): Gastroparesis Promethazine 25 mg every 8 hours as needed for N&V- refilled Sees GI in [place] [facility] Work Phone: 03-22-2023 Miscellaneous Notes Associated Problem(s): Wound of left foot Sees podiatry on Wednesday Associated Problem(s): Gastroparesis Promethazine 25 mg every 8 hours as needed for N&V- refilled Sees GI in [place] Associated Problem(s): Benign essential hypertension BP is <130/80. Continue to take medications as prescribed. Continue diet (low salt) and exercise as advised. Associated Problem(s): AV fistula ([facility]) Managed by nephrology [place] Associated Problem(s): Class 3 severe obesity due to excess calories with serious comorbidity and body mass index (BMI) of 40.0 to 44.9 in adult ([facility]) Pt advised to institute a healthy, well-balanced meal with portion control and to exercise daily for at least 30-60 minutes. Associated Problem(s): Type 2 diabetes mellitus with circulatory disorder, with long-term current use of insulin ([facility]) [facility] in [place] Associated Problem(s): Mild intermittent asthma without complication Albuterol inhaler/nebulizer- refilled Associated Problem(s): End stage renal disease ([facility]) Goes to dialysis 3 x week. documented in this encounter [facility] Work Phone: 03-22-2023 Evaluation + Plan note Associated Problem(s): Benign essential hypertension BP is <130/80. Continue to take medications as prescribed. Continue diet (low salt) and exercise as advised. [facility] Work Phone: 03-22-2023 Evaluation + Plan note Associated Problem(s): AV fistula ([facility]) Managed by nephrology [place] [facility] Work Phone: 03-22-2023 Evaluation + Plan note Associated Problem(s): Class 3 severe obesity due to excess calories with serious comorbidity and body mass index (BMI) of 40.0 to 44.9 in adult ([facility]) Pt advised to institute a healthy, well-balanced meal with portion control and to exercise daily for at least 30-60 minutes. [facility] Work Phone: 03-16-2023 Evaluation + Plan note Associated Problem(s): Type 2 diabetes mellitus with circulatory disorder, with long-term current use of insulin ([facility]) [facility] [place] [facility] Work Phone: 03-16-2023 Evaluation + Plan note Associated Problem(s): Mild intermittent asthma without complication Albuterol inhaler/nebulizer- refilled [facility] Work Phone: 03-16-2023 Evaluation + Plan note Associated Problem(s): End stage renal disease ([facility]) Goes to dialysis 3 x week. [facility] Work Phone: 03-16-2023 History of Presen t illness Narrative Subjective Patient ID: Xochitl Cherry is a 48 y.o. female who presents for [place] discharge follow up; med review and refills. KATHERINE Neri returns for [place] discharge follow up. She reports she was in the [place] for deconditioning after getting her fistula revised [...] to the area to help her out. [facility] for PT/OT. DM: follows with Dr. Brady-endocrinology in [place]. Asthma/intermittent: Uses albuterol inhaler as needed. Denies [...] nausea or vomiting. End stage renal disease ([facility]) Chronic migraine without aura without status migrainosus, not intractable Type 2 diabetes mellitus with other circulatory complication, with long-term current use of insulin ([facility]) Current mild episode of major depressive disorder without prior episode ([facility]) AV fistula ([facility]) Benign essential hypertension Class 3 severe obesity due to excess calories with serious comorbidity and body mass index (BMI) of 40.0 to 44.9 in adult ([facility]) Problem List Items Addressed This Visit AV fistula ([facility]) Managed by nephrology [place] Benign essential hypertension BP is <130/80. Continue to take medications as prescribed. Continue diet (low salt) and exercise as advised. Current mild episode of major depressive disorder without prior episode ([facility]) End stage renal disease ([facility]) Goes to dialysis 3 x week. Gastroparesis Promethazine 25 mg every 8 hours as needed for N&V- refilled Sees GI in [place] Relevant Medications promethazine (Phenergan) 25 mg tablet Migraines Mild intermittent asthma without complication - Primary Albuterol inhaler/nebulizer- refilled Relevant Medications albuterol (Ventolin HFA) 90 mcg/actuation inhaler albuterol 2.5 mg /3 mL (0.083 %) nebulizer solution Type 2 diabetes mellitus with circulatory disorder, with long-term current use of insulin ([facility]) [facility] in [place] Class 3 severe obesity due to excess calories with serious comorbidity and body mass index (BMI) of 40.0 to 44.9 in adult ([facility]) Pt advised to institute a healthy, well-balanced meal with portion control and to exercise daily for at least 30-60 minutes. Follow up in October for Medicare wellness exam. Gets labs done at dialysis and endocrinology. documented in this encounter [facility] Work Phone: 03-16-2023 Instructions SUSANNA Cavanaugh - 03/16/2023 2:00 PM EDT BMI was above normal measurement. Current weight: Weight change since last visit (-) denotes wt loss Weight loss needed to achieve BMI 25: Lbs Weight loss needed to achieve BMI 30: Lbs Provided instructions on dietary changes Provided instructions on exercise documented in this encounter [facility] Work Phone: 09-07-2022 History of Presen t illness Narrative Halle returns for hospital follow up and renewal of [facility] services.November 12 is seeing Endocrinology Jesus not need iron or vitamin d as she gets these at dialysis.Was last in September 07 and then went to shelter for 21 days and then came out on September 26.Neurology: has not been seen/ Was to follow up but did not hear from anyone.may need fistula replaced. 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 [facility] 205 DO Work Phone: 09-07-2022 History of Presen t illness Narrative Halle returns for hospital follow up and renewal of [facility] services.November 12 is seeing Endocrinology Jesus not need iron or vitamin d as she gets these at dialysis.Was last in September 07 and then went to shelter for 21 days and then came out on September 26.Neurology: has not been seen/ Was to follow up but did not hear from anyone.may need fistula replaced. 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 [facility] 205 [...] in early ocial Hx:Tobacco: DeniesETOH: DeniesDrugs: DeniesCaffeine: [facility] Work Phone: [facility] Mild intermittent asthma without complication- Primary Gastroparesis End stage renal disease ([facility]) End stage renal disease Chronic migraine without aura without status migrainosus, not intractable Type 2 diabetes mellitus with other circulatory complication, with long-term current use of insulin ([facility]) Current mild episode of major depressive disorder without prior episode ([facility]) AV fistula ([facility]) Benign essential hypertension Essential hypertension, benign Class 3 severe obesity due to excess calories with serious comorbidity and body mass index (BMI) of 40.0 to 44.9 in adult ([facility]) documented in this encounter [facility] Work Phone: Evaluation note* Diagnosis Type 2 diabetes mellitus with diabetic neuropathy, with long-term current use of insulin ([facility])- Primary ESRD needing dialysis ([facility]) End stage renal disease Primary hypertension Unspecified essential hypertension Vascular dialysis catheter in place ([facility]) Renal dialysis status AV fistula ([facility]) Arteriovenous fistula, acquired Hyperlipidemia, mixed Mixed hyperlipidemia Seasonal allergies Allergic rhinitis, cause unspecified GERD without esophagitis Esophageal reflux Vitamin D deficiency Unspecified vitamin D deficiency Primary amenorrhea Absence of menstruation Foot drop, left foot Wheelchair dependent Wheelchair dependence Other irritable bowel syndrome Diabetic gastroparesis ([facility]) Type II or unspecified type diabetes mellitus [...] ankle and foot [facility] Diagnostic Procedure Only (Routine) - Pending Review Specialty Diagnoses / Procedures Referred By Jackson t Referred To Contact [facility] Diagnoses Encounter for screening mammogram for breast cancer Procedures RAMBO SCREENING SCREENING MAMMOGRAPHY BI 2-VIEW BREAST INC Xochitl Roth DO [address] [place] [address] [facility] [address] [place] [address] Referral ID Status Reason Start Date Expiration Date Visits Requested Visits Authorized [id number] Pending Review Auto-Generat ed Referral 3 09/22/2024 1 1 [facility] Chief Complaint Pt presents to establish new PCP; previous pt of [facility] in [place], [place]; currently on dialysis; needing HHC with PT and OT; needing new Disability Placard.Pt presents for hospital f/u from Stroke in August followed by shelter stay. Released 09/26/22. Would like to discuss medications, states she is taking Losartan potassium and should not be on potassium.Pt presents for hospital f/u from Stroke in August followed by shelter stay. Released 09/26/22. Would like to discuss [...] without status migrainosus, not intractable Caroline Sousa, DIRECTOR SALES [facility] [place] [address] [facility] Referral ID Status Reason Start Date Expiration Date Visits Re quested Visits Authorized [id number] Closed 11/12/2022 11/12/2023 1 1 Summary Purpose Advance Directives No Advanced Directives Records FoundNo Advanced Directives Records FoundNo Advanced Directives Records FoundNo Advanced Directives Records Found Additional Source Comments INFORMATION SOURCE (unrecogn ized section and content) DATE CREATED AUTHOR AUTHOR'S ORGANIZ ATION 11/13/2022 [employer] DATE CREATED AUTHOR AUTHOR'S ORGANIZ ATION 05/14/2023 [facility] DATE CREATED AUTHOR AUTHOR'S ORGANIZ ATION 10/14/2023 Cusicksharmila Hays [facility] Care Teams (unrecognized sec tion and content) Health Promotion Manager Relationship Specialty Start Date End Date Xochitl Peters DO [address] [place] [id number] PCP - General Family Medicine 08/24/23 YarielriMaddy gonzales MD [address] [place] [id number] Family Medicine 08/24/23 Health Promotion Manager Relationship Specialty Start Date End Date Xochitl Peters DO [address] [place] [id number] PCP - General Family [facility] 08/24/23 YarielriMaddy gonzales MD [address] [place] [id number] Family [facility] 08/24/23 Health Promotion Manager Relationship Specialty Start Date End Date Xochitl Peters DO [address] [place] [id number] PCP - General Family [facility] 08/24/23 YarielriMaddy gonzales MD [address] [place] [phone] Family Medicine 08/24/23 <item> Privacy Markings (unrecogniz [...] or prosecute any alcohol or drug abuse patient.[facility] the event this information is protected by the Federal Confidentiality of Alcohol and Drug Abuse Patient Records regulations: The Federal rules restrict any use of the information to criminally investigate or prosecute any alcohol or drug abuse patient.[facility] the event this information is protected by the Federal Confidentiality of Alcohol and Drug Abuse Patient Records regulations: The Federal rules restrict any use of the information to criminally investigate or prosecute any alcohol or drug abuse patient.[facility] the event this information is protected by the Federal Confidentiality of Alcohol and Drug Abuse Patient Records regulations: The Federal rules restrict any use of the information to criminally investigate or prosecute any alcohol or drug abuse patient.[facility] Reason for Visit (unrecogniz ed section and content) Reason Comments Results Reason Onset Date Comments Refill Request 09/02/2023 Reason Comments New Patient Establish care previ ous pcp was Dr. Anaya in [place]. Needs medication refills FOR RECORDS PERTAINING TO [...] BE BASED ON THE PRIMARY CLINICAL RECORDS. [facility] [employer] [facility]. provides no warranty or guarantee of the accuracy or completeness of information in this document.
--- NOTE | 2023-10-23 16:28 | NURSING ---
Patient given 15 units of home Novolog injection per Dr. Phillips
--- NOTE | 2023-10-23 17:23 | PCM.HP.STD ---
HPI - General General Date of Admission: 10/23/23 Date of Service: 10/23/23 Chief Complaint: Bilateral flank pain HPI Narrative XOCHITL CHERRY, is a 48 F who presented to the emergency department at [facility] on 10/23/2023 complaining of bilateral flank pain. Patient reported she typically undergoes dialysis on Wednesday and Wednesday but had not gone for over a week. She reported she had missed dialysis because she is not able to get a ride there. She recently spent $3000 to get her car fixed but her car still is not working so she has no transportation. Her bilateral flank pain was described as sharp and started last evening. She indicated been constant and severe. She also has pain that rated the needed to bilateral shoulder blades and has associated nausea. She denies any chest pain, weakness, vomiting and she does still does make urine but denied dysuria. Patient also complained of hematemesis. She was here on 10/07/2023 for this however she told me she was just here last week for this. Her hemoglobin is stable since that last visit so I do not think she is having any significant blood loss but we will monitor her. She also complained of exertional dyspnea which is chronic for her. She states it is not new. I did discuss with her that pleural effusion and that we may need to perform a thoracentesis and she states I have had that before. On presentation the patient was afebrile but had markedly elevated blood pressure at 246/112 and she was treated with IV labetalol in the emergency department. She was also given morphine for her flank pain and Zofran. Her CBC was overall unremarkable other than a chronic stable hemoglobin at 10.8. She had a mildly elevated neutrophil count at 74% but a normal white count. Her chemistry showed mild hyponatremia with a sodium of 131 BUN of 54 and a serum creatinine of 5.94. She had no other significant electrolyte abnormalities including a normal bicarb and potassium level to argue for the need of acute dialysis. Her blood glucose level was markedly elevated at 713. Troponin was 24 and lipase was 34. There was no acetone in her blood. A CTA of her chest abdomen and pelvis was performed and she had a normal abdominal aorta and bilateral lower extremity runoff with out hemodynamic significant stenosis, there is no PE or arterial dissection, she had a trace right pleural effusion and a small to moderate size left pleural effusion with mild basilar atelectasis and a small pericardial effusion. The extra volume is likely related to her missed dialysis. Given her blood pressure, and inability to get to dialysis the emergency department physician felt that she needed admitted so we will admit her under observation for dialysis on Wednesday. Patient is aware that she will not be able to receive dialysis until Wednesday and there is no current urgent need for dialysis. In the meantime we can work on her blood pressure control and trying to obtain better glycemic control. Patient has multiple allergies which will make overall care difficult as one of her allergies includes Humalog. Patient was instructed that she will have to supply her own insulin as Humalog is on her formulary. She is agreeable. Will also have social work see her to help set up and facilitate services. [facility] Medical History Anxiety Arthritis Asthma Fleming esophagus Blackout Bruising delivery delivered Chronic kidney disease Depression Dietary restriction Difficulty swallowing Disc disorder Easy bruising ESRD needing dialysis FH: cholecystectomy Fibromyalgia, primary Former smoker Gastric reflux High cholesterol History of CHF (congestive heart failure) History of Clostridium difficile infection History of echocardiogram History of edema History of stress test History of ulceration Hypertension Hypertension Hypertensive urgency Injury of head and neck Insulin dependent diabetes mellitus Left foot amputee (~2019) Left hand pain Loss of hearing Low iron LUE weakness Migraine headache On home oxygen therapy Seasonal allergies Shortness of breath on exertion Stroke (~2021) Syncope Thyroid disease Transitioned from acute care to home health care Uses wheelchair Vision impairment Walker as ambulation aid Wears glasses Home Medications aspirin 81 mg tablet,delayed release 81 mg PO DAILY HEART HEALTH 06/23/22 [History Last Taken 09/05/23] bumetanide 1 mg tablet 1 mg PO BID FLUID 06/23/22 [History Last Taken 09/05/23] cetirizine 10 mg tablet 10 mg PO DAILY ALLERGIES 06/23/22 [History Last Taken 09/05/23] losartan 50 mg tablet 100 mg PO DAILY BLOOD PRESSURE 06/23/22 [History Last Taken 09/05/23] pantoprazole 40 mg tablet,delayed release 40 mg PO DAILY ACID REFLUX 06/23/22 [History Last Taken 09/05/23] tamsulosin 0.4 mg capsule 0.4 mg PO QHS BLADDER 06/23/22 [History Last Taken 09/05/23] promethazine 25 mg tablet 25 mg PO Q6H PRN NAUSEA/VOMITING 09/01/22 [History Last Taken Unknown] atorvastatin 40 mg tablet 40 mg PO QHS #30 tabs 09/04/22 [Rx Last Taken 09/05/23] albuterol sulfate 2.5 mg/3 mL (0.083 %) solution for nebulization 2.5 mg inhalation Q4H PRN SOB 01/07/23 [History Last Taken 01/19/23] sucroferric oxyhydroxide 500 mg chewable tablet (Velphoro) 500 mg PO TID 01/07/23 [History Last Taken 09/05/23] cyclobenzaprine 10 mg tablet 10 mg PO TID PRN PRN Breakthrough Pain (>4/10) 7 days #21 tabs 01/22/23 [Rx Last Taken 09/05/23] gabapentin 100 mg capsule 300 mg (3 x 100 mg) PO QHS NERVE PAIN #21 caps 01/22/23 [Rx Last Taken 09/05/23] flash glucose sensor (FreeStyle Gissell 2 Sensor kit) #6 ea 03/16/23 [Rx Last Taken Unknown] hydrocodone 7.5 mg-acetaminophen 325 mg tablet 1 tab PO Q6H PRN pain 3 days #12 tabs 04/06/23 [Rx Last Taken 09/05/23] hydrocodone 7.5 mg-acetaminophen 325 mg tablet 1 tab PO Q6H PRN pain 3 days #12 tabs 04/12/23 [Rx Last Taken Unknown] insulin detemir U-100 100 unit/mL (3 mL) subcutaneous pen 26 unit (0.26 mL) subcut QHS DIABETES #30 mL 08/04/23 [Rx Last Taken 09/03/23] pen needle, diabetic 32 gauge x 5/32 (BD Ultra-Fine Laura Pen Needle) #400 ea 08/04/23 [Rx Last Taken Unknown] acetaminophen 500 mg tablet 1,000 mg PO Q6H PRN pain 08/13/23 [History Last Taken Unknown] dicyclomine 10 mg capsule 10 mg PO BID stomach 08/13/23 [History Last Taken Unknown] insulin aspart U-100 100 unit/mL (3 mL) subcutaneous pen (Novolog FlexPen U-100 Insulin aspart) 15 unit subcut TID DIABETES 08/13/23 [History Last Taken 09/05/23] vitamin B complex-vitamin C-folic acid 0.8 mg tablet (Nephro-Chris) 1 tab PO DAILY supplement 08/13/23 [History Last Taken 09/05/23] dicyclomine 10 mg capsule 10 mg PO BID #60 caps 08/14/23 [Rx Last Taken 09/05/23] lamotrigine 25 mg chewable dispersible tablet 50 mg (2 x 25 mg) PO DAILY #60 ea 08/14/23 [Rx Last Taken 09/05/23] pantoprazole 40 mg tablet,delayed release 40 mg PO DAILY #30 tabs 08/14/23 [Rx Last Taken Unknown] sennosides 8.6 mg-docusate sodium 50 mg tablet (Stool Softener-Stimulant Laxative) 2 tab PO DAILY #0 tabs 08/14/23 [Rx Last Taken Unknown] sucralfate 1 gram tablet 1 g PO TID@0700,1100,1600 #90 tabs 08/14/23 [Rx Last Taken 09/05/23] Allergy/AdvReac Type Severity Reaction Status Date / Time lidocaine Allergy Severe Rash Verified 10/23/23 13:36 bacitracin Allergy Intermediate blisters Verified 10/23/23 13:36 hydrogen peroxide Allergy Intermediate blisters Verified 10/23/23 13:36 isopropyl alcohol Allergy Intermediate blisters Verified 10/23/23 13:36 Sulfa (Sulfonamide Allergy Intermediate Rash Verified 10/23/23 13:36 Antibiotics) Bleach (Sodium Hypochlorite) Allergy Hives Verified 10/23/23 13:36 insulin lispro Allergy HIVES, Verified 10/23/23 13:36 [From Humalog U-100 Insulin] REDNESS Latex, Natural Rubber Allergy Rash Verified 10/23/23 13:36 ondansetron [From Zofran] AdvReac Severe Constipatio Verified 10/23/23 13:36 n dicyclomine AdvReac Mild Vomiting Verified 10/23/23 13:36 metformin AdvReac Vomiting Verified 10/23/23 13:36 neomycin AdvReac HIVES, Verified 10/23/23 13:36 [From Neosporin REDNESS ([id number])] polymyxin B AdvReac HIVES, Verified 10/23/23 13:36 [From Neosporin REDNESS ([id number])] Family History Other Arthritis Asthma CVA (cerebral vascular accident) Diabetes Heart disease High cholesterol Hypertension Kidney disease Osteoporosis Seizures Surgical History H/O left knee surgery H/O right knee surgery History of arteriovenostomy for renal dialysis History of bladder surgery History of History of cholecystectomy History of foot surgery History of infusaport central venous catheter removal History of liver biopsy History of lumpectomy of right breast History of shoulder surgery History of thoracentesis Hx of tonsillectomy Social History household members: family housing: house Smoking Status: Former smoker alcohol intake: never ROS Constitutional Constitutional: Reports fatigue and weakness; Denies anorexia, change in weight, chills, fever(s), malaise, night sweats or other Eyes Eyes: Reports blurry vision bilateral (Chronic) ENT HEENT: Denies abnormal hearing, dysphagia, ear pain, epistaxis, headache(s), hearing loss, nasal congestion, nasal discharge, post nasal drip, sinus pressure, sore throat or other Cardiovascular Cardiovascular: Reports dyspnea on exertion; Denies chest pain, claudication, edema, lightheadedness, orthopnea, palpitations, paroxysmal nocturnal dyspnea, rapid heart rate, syncope or other Respiratory/Chest Respiratory/Chest: Reports dyspnea and shortness of breath with exertion; Denies cough, excessive phlegm production, hemoptysis, productive cough, shortness of breath at rest, wheezing or other Vital Signs Vital Signs Vital Signs: 10/23/23 13:36 10/23/23 14:20 10/23/23 15:23 Temperature 98 F Temperature Source Temporal Pulse Rate 84 68 65 Respiratory Rate 18 20 H 14 Blood Pressure 246/112 H 184/82 H 187/87 H Blood Pressure Mean 156 116 120 Pulse Ox 100 99 97 Oxygen Delivery Method Room Air Room Air Room Air 10/23/23 16:09 10/23/23 17:03 Temperature Temperature Source Pulse Rate 69 69 Respiratory Rate 18 17 Blood Pressure 188/80 H 172/82 H Blood Pressure Mean 116 112 Pulse Ox 96 96 Oxygen Delivery Method Room Air Weight Weight: 137.529 kg Body Mass Index (BMI) 47.5 Physical Exam Const alert, oriented x3, no apparent distress and well nourished; Negative for healthy appearing Constitutional Narrative: Morbidly obese, white female, lying in bed, appears comfortable, nontoxic, watching television, nursing at bedside, appears chronically ill General Appearance: cooperative HEENT normocephalic, head/scalp atraumatic, hearing grossly normal bilaterally and moist oral mucous membranes HEENT Narrative: Mallampati 3, no thrush Eyes PERRL and EOMs intact bilaterally Eyes Narrative: No scleral icterus Neck no lymphadenopathy and supple Neck Narrative: Short thick neck, trachea midline, no noted thyroid enlargement Resp normal respiratory effort, no retractions, no use of accessory muscles and clear to auscultation bilaterally Resp Narrative: Diminished in left base Auscultation: Negative for rales, rhonchi or wheezes Cardio regular rate, regular rhythm, S1 normal heart sound, S2 normal heart sound, no murmurs, no rub, no gallops and no clicks GI normal to inspection, nondistended, normoactive bowel sounds, soft to palpation and non-tender GI Narrative: Abdomen was nontender during distracted exam Extremity Extremity Narrative: No cyanosis or clubbing, patient with 1+ bilateral lower extremity pitting edema, AFO on left lower extremity which she was still in place Neuro oriented x3, moves all extremities and no focal motor deficits Speech: speech normal Psych Negative for affect normal Psych Narrative: Affect is flat, patient seems helpless and mood is depressed Mood & Affect: depressed Results Lab / Micro Data 10/23/23 13:50 10/23/23 13:50 Labs: Laboratory Results - last 24 hr 10/23/23 13:50: WBC 6.9, RBC 3.62 L, Hgb 10.8 L, Hct 32.5 L, MCV 89.8, MCH 29.8, MCHC 33.2, RDW Std Deviation 42.0, RDW Coeff of Juan 12.7, Plt Count 275, MPV 9.6, Immature Gran % (Auto) 0.700, Neut % (Auto) 74.0 H, Lymph % (Auto) 17.3 L, [place] % (Auto) 3.8, Eos % (Auto) 3.3, Baso % (Auto) 0.9, Absolute Neuts (auto) 5.1, Absolute Lymphs (auto) 1.19, Nucleated RBC % 0, Sodium 131 L, Potassium 4.4, Chloride 99, Carbon Dioxide 22.0, Anion Gap 10, BUN 54 H, Creatinine 5.94 H, Estim Creat Clear Calc 17.00, Est GFR (MDRD) Af Amer 10 L, Est GFR (MDRD) Non-Af 8 L, BUN/Creatinine Ratio 9.1 L, Glucose 713 H*, Calcium 9.2, Troponin I High Sens 24, Lipase 34, Acetone Level NEGATIVE ABG Data ABG results: ABG 10/23/23 15:39 Specimen Type MALIA Sample Site Not entered VBG pH 7.24 L VBG pO2 30 VBG HCO3 20 L VBG Total CO2 21 L VBG O2 Sat (Calc) 47 L VBG Base Excess -8 L POC Mix VBG pCO2 Pt Tmp 46.0 O2 Delivery Device Room Air Imagaing Radiology Impression Chest CTA 10/23/23 13:55 IMPRESSION: 1. Normal CTA chest examination, without a demonstrated pulmonary embolism or arterial dissection. 2. Trace right pleural effusion. Small to moderate-sized left pleural effusion with mild basilar atelectasis. Subsegmental atelectasis or small foci of fibrosis is present in the lingula and right middle lobe. No nodules are present. 3. Small pericardial effusion Electronically Signed: Brad Brewer MD at 15:17 EST Reading Location ID and State: [address] [place] [address] , Service support , Abdomen/Pelvis CTA 10/23/23 14:00 IMPRESSION: 1. Normal CTA chest examination, without a demonstrated pulmonary embolism or arterial dissection. 2. Trace right pleural effusion. Small to moderate-sized left pleural effusion with mild basilar atelectasis. Subsegmental atelectasis or small foci of fibrosis is present in the lingula and right middle lobe. No nodules are present. 3. Small pericardial effusion Electronically Signed: Brad Brewer MD at 15:17 EST , Assessment & Plan Assessment/Plan (1) Acute hyperglycemia: (2) Hypertensive urgency: (3) Pleural effusion, left: (4) Medical non-compliance: (5) Abdominal pain: (6) Hematemesis: PLAN: Plan Abdominal pain/nausea/vomiting -Etiology is unclear -Patient does have what she states is gastroparesis however she has never been officially diagnosed and is trying to get into GI -Will trial some Reglan 5 mg 3 times daily -CT of the abdomen pelvis is completely unremarkable -Patient is on dicyclomine and it is listed as an allergy as it causes vomiting so we will stop this -Recommend outpatient follow-up with GI -As needed antiemetics with Compazine Hypertensive urgency with history of hypertension -Blood pressure markedly elevated and patient has missed dialysis all of last week -Will continue home Flomax -Continue home losartan -Continue home Bumex -As needed labetalol for systolic pressure greater than 160 -Patient with no current signs of endorgan damage to suggest hypertensive emergency DM-2 with marked hyperglycemia -Patient reports compliance however she states her monitor is broken she does not have a backup glucometer -Blood sugar on presentation was greater than 700 -I highly doubt patient has been taking her insulin -In the emergency department patient repeat received a total of 35 units of subcu log -She will have to use her own bolus insulin as she is allergic to Humalog in the form of hives -Will give 15 units 3 times daily -Continue basal insulin with 26 units at at bedtime -Will trend blood sugars with this dosing since I do suspect noncompliance before uptitrating -Check hemoglobin A1c -Accu-Cheks as ordered but will have to hold on subcu insulin sliding scale as she has to take NovoLog and not Humalog -Recommend outpatient follow-up with endocrinology-patient follows with Dr. Brady Left-sided pleural effusion -Will order thoracentesis to be performed on Wednesday -Likely related to volume overload and insufficient dialysis Hematemesis -Patient reports she has had several bouts of hematemesis over the last week -Hemoglobin is stable from previous ER visit on 10/07/2023 -Will cycle and if there is a drop we will place her on IV Protonix 40 twice daily -If emesis will check Gastroccult -Will consider GI consult if Gastroccult is positive or patient has drop in hemoglobin Acid reflux/GERD -Continue home Protonix -Continue home Carafate History of asthma -Continue as needed albuterol End-stage renal disease -HD dependent -Patient does make some urine -Continue Bumex -Consult nephrology for dialysis on Wednesday -Patient has not been dialyzed in over a week -Continue home Velphoro Hyperlipidemia -Continue home statin Chronic anemia -Secondary to chronic renal disease -Monitor as noted above for any signs of drop -Appears to be stable for some time with baseline being between 10 and 11 -Currently 10.9 Nocturnal hypoxia -I suspect patient has sleep apnea baseline -2 L of oxygen at night -Would recommend outpatient sleep study History of stroke -Continue home aspirin Mood disorder NOS -Continue home Lamictal Chronic pain -Hold home narcotics as these could delay gastric emptying and be causing her nausea -Continue Tylenol Morbid obesity -BMI is 47.5 -Complicates treatment, prognosis, outcomes -Would recommend weight loss Medical noncompliance -Patient appears to have many social issues -Will consult case management/social work to facilitate improvement in her compliance DVT prophylaxis -Heparin subcu 3 times daily CODE STATUS Full code Charges/Coding Visit Charges Inpatient E&M: 88794 Init Hosp L2
--- NOTE | 2023-10-23 17:46 | NURSING ---
Administered 20units of patients home Novolog flex pen at this time per Dr Starr.
[2023-10-23 17:59] LABS: Bedside Glucose 470 mg/dL (74-106)
--- OUTSIDE RECORDS SUMMARY | 2023-10-23 18:38 | XMS RPT_ITS | CCD ---
Author Name Unknown Address [address] [place] [address] Organization [facility] Care Team Providers Care Multi Disciplined Language Analyst Name Role Phone Caroline Sousa Unavailable Unavailable Unavailable Unavailable Primary Care Provider Unavailkwaku bosch Lars, Ms. Caroline Villanuevay Attending Unavailable Lars, . Caroline Dedra Primary Care Unavailable Sousa USER EXPERIENCE TEAM LEAD-MARTHA Caroline Kayden Primary Care Provider [phone] Sousa, Caroline Dedra Referring Unavailable Sousa, Ms. [...] Fede Skinner Attending Unavailable Sousa, Ms. Caroline Dedar Primary Care Unavailable Sousa, Ms. Caroline Dedra Referring Unavailable Sousa, Ms. Caroline Dedra Attending Unavailable Lars, Ms. Caroline Dedra Referring Unavailable Sousa, Ms. Caroline Dedra Primary Care Unavailable Lars, Ms. Caroline Dedra Referring Unavailable Lars, Ms. Caroline Dedra Attending Unavailable Lars, Ms. Caroline Dedra Primary Care Unavailable Lars, Caroline Unavailable Unavailable Abraham Gutierrez Unavailable Unavailable Xochitl Peters DO Primary Care Provider [phone] Maddy Anaya MD Unavailable SHEETS, XOCHITL C [...] Drug Allergy 11-11-19 Unknown, Other: See Comments [facility] Work Phone: (14 sources) Bacitracin / Neomycin / Polymyxin B; Translations: [Neosporin OINT] Drug Allergy [facility] Work Phone: (14 sources) Hydrogen Peroxide; Translations: [PX Hydrogen Peroxide SOLN] Drug Allergy [facility] Work Phone: (20 sources) Lidocaine; Translations: [lidocaine] Drug Allergy 11-11-19 Unknown, Other: See Comments [facility] and Work Phone: (20 sources) metFORMIN; Translations: [metformin] Drug Allergy 11-11-19 Unknown, Diarrhea, GI Upset [facility] and Work Phone: (15 sources) Polymyxin B; Translations: [Polymyxin B Sulfate SOLR] Drug Allergy 11-11-19 Unknown [facility] and Work Phone: (15 sources) Sulfamethoxazole / Trimethoprim; Translations: [Bactrim] Drug Allergy 11-11-19 Unknown [facility] and Work Phone: (14 sources) Rubbing Alcohol SOLN; Translations: [Rubbing Alcohol SOLN] Allergy to drug (finding) [facility] and Work Phone: (14 sources) Adhesive Tape TAPE; Translations: [Adhesive Tape TAPE] Allergy to drug (finding) [facility] and Work Phone: (14 sources) Latex Gloves MISC; Translations: [Latex Gloves MISC] Allergy to drug (finding) [facility] and Work Phone: (5 sources) insulin isophane / insulin, regular, human; Translations: [Humulin L SUSP] Drug Allergy [facility] 205 DO Work Phone: (1 source) Bacitracin / Polymyxin B Drug Allergy 11-11-19 Unknown [facility] Work Phone: (6 sources) Benzalkonium; Translations: [BENZALKONIUM CHLORIDE] Drug Allergy 09-05-20 14 Hives, Other: See Comments [facility] (1 source) Hydrogen Peroxide Drug Allergy 11-11-19 [facility] Work Phone: (1 source) Isopropyl Alcohol Drug Allergy 11-11-19 [facility] Work Phone: (6 sources) Latex; Translations: [LATEX] Propensity to adverse reactions 11-11-19 Unknown, Other: See Comments [facility] Work Phone: (1 source) lente insulin, human Drug Allergy 11-11-19 [facility] Work Phone: (1 source) Neomycin Drug Allergy 03-16-20 [facility] Work Phone: (1 source) Adhesive Tape-Silicones Propensity to adverse reactions 11-11-19 Unknown [facility] (1 source) Gramicidins Drug Intolerance 03-16-20 [facility] Work Phone: (5 sources) Benzoyl Peroxide; Translations: [BENZOYL PEROXIDE] Drug Allergy 08-24-20 Other: See Comments [facility] (5 sources) Ethanol; Translations: [ETHYL ALCOHOL] Drug Allergy 08-24-20 Other: See Comments [facility] (5 sources) Hypochlorite; Translations: [BLEACH (SODIUM HYPOCHLORITE)] Drug Allergy 08-24-20 Other: See Comments [facility] (5 sources) Ondansetron; Translations: [ONDANSETRON] Drug Allergy 08-24-20 Other: See Comments [facility] (5 sources) Sulfonamides (Antibiotic); Translations: [SULFA (SULFONAMIDE ANTIBIOTICS)] Drug Allergy 08-24-20 Hives, Swelling [facility] (5 sources) trichloroacetaldehy de; Translations: [CHLORAL BETAINE] Drug Allergy 08-24-20 Other: See Comments [facility] Medications Current Medications Medication Drug Class(es) Dates [...] [Coronary atherosclerosis of unspecified type of vessel, [place] or graft] Onset: 11-11-2022 11-11-2022 Chronic Deficiency [...] 97.81 [degF] Xochitl Sheets DO Work Phone: [facility] 08-24-2023 09:04-0500 Diastolic blood pressure 78 mm[Hg] Xochitl Sheets DO Work Phone: [facility] 08-24-2023 09:04-0500 Heart rate 68 /min Xochitl Sheets DO Work Phone: [facility] 08-24-2023 09:04-0500 Respiratory rate 16 /min Xochitl Sheets DO Work Phone: [facility] 08-24-2023 09:04-0500 SaO2% (BldA) [Mass fraction] 99 % Xochitl Sheets DO Work Phone: [facility] 08-24-2023 09:04-0500 Systolic blood pressure 126 mm[Hg] Xochitl Sheets DO Work Phone: [facility] 06-18-2023 13:00-0400 Diastolic blood pressure 73 mm[Hg] Carolinesarah Sousa [facility] 06-18-2023 13:00-0400 Heart rate 75 /min Carolinesarah Sousa [facility] 06-18-2023 13:00-0400 Respiratory rate 18 /min Carolinesarah Sousa [facility] 06-18-2023 13:00-0400 SaO2% (BldA) [Mass fraction] 99 % Carolinesarah Sousa [facility] 06-18-2023 13:00-0400 Systolic blood pressure 181 mm[Hg] Caroline Sousa [facility] 06-18-2023 11:04-0400 Body height 170.1 cm Carolinesarah Sousa [facility] 06-18-2023 11:04-0400 Body temperature 97.88 [degF] Caroline Sousa [facility] 06-18-2023 11:04-0400 Body weight 126 kg Carolinesarah Sousa [facility] 03-16-2023 14:16-0400 Body height 170.2 cm Caroline Sousa USER EXPERIENCE TEAM LEAD-HEARING THERAPY DIRECTOR Work Phone: [facility] 03-16-2023 14:16-0400 Body mass index (BMI) [Ratio] 44.58 kg/m2 Caroline Sousa USER EXPERIENCE TEAM LEAD-HEARING THERAPY DIRECTOR Work Phone: [facility] 03-16-2023 14:16-0400 Body weight 129.1 kg Caroline Sousa USER EXPERIENCE TEAM LEAD-HEARING THERAPY DIRECTOR Work Phone: [facility] 03-16-2023 14:16-0400 Diastolic blood pressure 80 mm[Hg] Caroline Sousa USER EXPERIENCE TEAM LEAD-HEARING THERAPY DIRECTOR Work Phone: [facility] 03-16-2023 14:16-0400 Heart rate 89 /min Caroline Sousa USER EXPERIENCE TEAM LEAD-HEARING THERAPY DIRECTOR Work Phone: [facility] 03-16-2023 14:16-0400 SaO2% (BldA) [Mass fraction] 99 % Caroline Sousa USER EXPERIENCE TEAM LEAD-HEARING THERAPY DIRECTOR Work Phone: [facility] 03-16-2023 14:16-0400 Systolic blood pressure 130 mm[Hg] Caroline Sousa USER EXPERIENCE TEAM LEAD-HEARING THERAPY DIRECTOR Work Phone: [facility] 10-29-2022 10:29-0500 Body height 170.18 cm Caroline Sousa Work Phone: [facility] 205 DO Work Phone: 10-29-2022 10:29-0500 Diastolic blood pressure 82 mm[Hg] Caroline Sousa Work Phone: [facility] 205 DO Work Phone: 10-29-2022 10:29-0500 Heart rate 71 /min Caroline Sousa Work Phone: [facility] 205 DO Work Phone: 10-29-2022 10:29-0500 SaO2% (BldA) [Mass fraction] 100 % Caroline Sousa Work Phone: [facility] 205 DO Work Phone: 10-29-2022 10:29-0500 Systolic blood pressure 132 mm[Hg] Caroline Sousa Work Phone: [facility] 205 DO Work Phone: 06-23-2022 13:10-0400 Body height 170.18 cm Caroline Sousa Work Phone: [facility] 205 DO Work Phone: 06-23-2022 13:10-0400 Body mass index (BMI) [Ratio] 47.24 kg/m2 Caroline Sousa Work Phone: [facility] 205 DO Work Phone: 06-23-2022 13:10-0400 Body surface area Derived from formula 2.41 m2 Caroline Sousa Work Phone: [facility] 205 DO Work Phone: 06-23-2022 13:10-0400 Body weight 136.8 kg Caroline Sousa Work Phone: [facility] 205 DO Work Phone: 06-23-2022 13:10-0400 Diastolic blood pressure 80 mm[Hg] Caroline Sousa Work Phone: [facility] 205 DO Work Phone: 06-23-2022 13:10-0400 Heart rate 68 /min Caroline Sousa Work Phone: [facility] 205 DO Work Phone: 06-23-2022 13:10-0400 Systolic blood pressure 132 mm[Hg] Caroline Sousa Work Phone: [facility] 205 DO Work Phone: 05-20-2022 11:53-0400 Body height 170.18 cm Caroline Sousa Work Phone: [facility] Work Phone: 05-20-2022 11:53-0400 Body mass index (BMI) [Ratio] 35.42 kg/m2 Caroline Sousa Work Phone: [facility] Work Phone: 05-20-2022 11:53-0400 Body surface area Derived from formula 2.13 m2 Caroline Sousa Work Phone: [facility] Work Phone: 05-20-2022 11:53-0400 Body weight 102.57 kg Caroline Sousa [facility] Work Phone: 05-20-2022 11:53-0400 Diastolic blood pressure 84 mm[Hg] Caroline Sousa Work Phone: [facility] [employer] [facility] Work Phone: 05-20-2022 11:53-0400 Heart rate 74 /min Caroline Sousa Work Phone[facility] [employer] [facility] Work Phone: 05-20-2022 11:53-0400 SaO2% (BldA) [Mass fraction] 99 % Caroline Sousa Work Phone: [employer] [facility] Work Phone: 05-20-2022 11:53-0400 Systolic blood pressure 144 mm[Hg] Caroline Sousa Work Phone: [facility] Work Phone: Encounters Encounter Date Encounter Type Care Provider Facility Start: 10-05-2023 End: 10-05-2023 ambulatory XOCHITL C SHEETS Facility:[facility] Start: 09-02-2023 Refill Xochitl So She ets DO Work Phone: [facility] Procedures Date Procedure Procedure Detail Performing Clinician Start: 04-20-2022 Colonoscopy Caroline bosch USER EXPERIENCE TEAM LEAD-HEARING THERAPY DIRECTOR Work Phone: Amputation of toe Caroline segovia [...] Screening for malign ant neoplasm of colon [facility] Start: 2026 Shingrix Vaccine (1 of 2) Shingrix Vaccine (1 of 2) [facility] Start: 2026 Zoster Vaccines (1 of 2) Zoste r Vaccines (1 of 2) [facility] Start: 08-24-2024 Annual PCP Team Rig Site Engineer genoveva Disease Visit Annual PCP Team Chronic Disease Visit [facility] Start: 08-24-2024 BP Controlled (<130/80) BP Con trolled (<130/80) [facility] Start: 08-24-2024 Urine microalbumin profile DTaP,Tdap,Td Vaccine (1 - Tdap) [facility] Immunizations Immunization Date Immunization Notes Care Provider Guillermina link 08-04-2023 Influenza, injectabl e, Madin Santa Canine Kidney, quadrivalent with preservative Xochitl Sheets DO Work Phone: [facility] 11-16-2022 Hepatitis B vaccine (recombinant), CpG adjuvanted Carolinesarah Sousa USER EXPERIENCE TEAM LEAD-HEARING THERAPY DIRECTOR Work Phone: [facility] Work Phone: 09-15-2022 Hepatitis B vaccine (recombinant), CpG adjuvanted Caroline Sousa USER EXPERIENCE TEAM LEAD-HEARING THERAPY DIRECTOR Work Phone: [facility] Work Phone: 08-17-2022 Hepatitis B vaccine (recombinant), CpG adjuvanted Caroline Sousa USER EXPERIENCE TEAM LEAD-HEARING THERAPY DIRECTOR Work Phone: [facility] Work Phone: 08-17-2022 Pneumococcal Conjuga te Pcv 20 Caroline Sousa USER EXPERIENCE TEAM LEAD-HEARING THERAPY DIRECTOR Work Phone: [facility] Work Phone: 07-20-2022 Hepatitis B vaccine (recombinant), CpG adjuvanted Caroline Sousa USER EXPERIENCE TEAM LEAD-HEARING THERAPY DIRECTOR Work Phone: [facility] Work Phone: 07-04-2022 influenza, injectabl e, quadrivalent, preservative free Xochitl Sheets DO Work Phone: [facility] 07-04-2022 influenza, seasonal, injectable Xochitl Sheets DO Work Phone: [facility] 06-22-2022 influenza, injectabl e, quadrivalent, preservative free Caroline Sousa USER EXPERIENCE TEAM LEAD-HEARING THERAPY DIRECTOR Work Phone: [facility] Work Phone: Payers Date Payer Category Payer Medicaid [id number] 2022 Medicaid [id number] 2015 Medicare [id number] 2015 Medicare [id number] 1975 Unknown [id number] 1975 Unknown [id number] 2.16. [id number] 1975 Unknown [id number] 2.16. [id number] 1975 Unknown [id number] 2.16. [id number] 1975 Unknown [id number] 2. [id number] 1976 Unknown [id number] 2.16. [id number] 1976 Unknown [id number] 2.16. [id number] 1975 Unknown [id number] 2.16. [id number] Unknown Social History Date Type Detail Facility Start: 03-16-2023 End: 08-24-2023 Non-smoker Non-smoker [facility] Work Phone: Tobacco smoking status [facility] Tobacco smoking consumption unknown [facility] Start: 1975 Sex Assigned At Not on file O [facility] Start: 03-16-2023 End: 08-24-2023 Tobacco smoking status NHIS Ex-smoker [facility] Work Phone: End: 10-04-1994 History of tobacco use Current smoker [facility] Work Phone: End: 10-04-1994 History of tobacco use Cigarette Smoker [facility] Work Phone: Start: 03-16-2023 End: 08-24-2023 Tobacco use and exposure Smokeless tobacco non-user [facility] Work Phone: Start: 03-16-2023 End: 08-24-2023 Tobacco use panel [facility] Work Phone: Start: 2023 End: 03-16-2023 Exposure to SARS-CoV-2 (event) Not sure [facility] Start: 08-24-2023 Alcohol intake Ex-drinker (finding) [facility] National Score (1-100), lower number is lower risk 89 [facility] Clinical Notes 05-15-2022 to 10-13-2023 Telephone Encounter - Magui Vazquez MA - 09/02/2023 4:40 PM ESTTelephone Encounter - Xochitl Peters DO - 09/02/2023 10:40 AM ESTTelephone Encounter - Laura Oconnell MA - 08/25/2023 7:43 AM EST Note Date & Type Note Facility 10-13-2023 Note HNO ID: [id number] Author: CARO FERNANDO MA Service: ? Author Type: Sap Senior Developer Type: Progress Notes Filed: 10/13/2023 16:33 Note Text: ED Follow Up: Patient discharged from [facility] ED on 10/07/23. 1. How are you [...] you able to contact the office or division superintendent provider prior to your ED visit? No 5. Is there anything else I can do for you today? No [facility] 10-13-2023 Note Patient Outreach (AG INTMLW) XOCHITL CHERRY ([id number]) 1975 F DEF Date Time Provider Department 10/13/23 CARO FERNANDO AGINTMLW During your visit today, we recorded the following information about you: Caro Fernando MA 10/13/2023 4:33 PM Signed ED Follow Up: Patient discharged from [facility] ED on 10/07/23. 1. How are you [...] you able to contact the office or division superintendent provider prior to your ED visit? No [...] by Nasal Cannula route. At night uses [facility] [phone] - losartan (COZAAR) 100 mg tablet Take [...] COATED) 81 m (more content not included)... [facility] 10-05-2023 Note HNO ID: [id number] Author: Xochitl Peters, DO Service: ? Author [...] by Nasal Cannula route. At night uses [facility] [phone] losartan (COZAAR) 100 mg tablet Take 1 [...] visit. ACTIVE PROBLEM LIST Esrd Needing Dialysis ([facility]) Vascular Dialysis Catheter in Place ([facility]) Av Fistula ([facility]) Hyperlipidemia, Mixed Seasonal Allergies Gerd Without Esophagitis Vitamin D Deficiency Type 2 Diabetes Mellitus With Diabetic Neuropathy, With Long-Term Current Use of Insulin ([facility]) Foot Drop, Left Foot Ulcer of Left Heel and Midfoot ([facility]) Primary Amenorrhea Wheelchair Dependent Other Irritable Bowel Syndrome Diabetic Gastroparesis ([facility]) ([facility]) Mild Intermittent Asthma, Uncomplicated History of Cva (Cerebrovascular Accident) Primary Hypertension Recurrent Major Depressive Disorder, in Partial Remission ([facility]) Nocturnal Dyspnea Social History Tobacco Use Smoking status: Former Types: Cigarettes Quit date: 1994 Years since quittin.0 Smokeless tobacco: Never Substance Use Topics Alcohol use: Not Cu (more content not included)... [facility] 09-02-2023 Miscellaneous Notes Patient states [...] Chela Davidson MA documented in this encounter [facility] 08-25-2023 Miscellaneous Notes Lm on pt. Vm test negative. (Ok per lifetime consent). Laura Oconnell MA ----- Message from Xochitl Peters DO sent at 08/24/2023 8:54 PM EST ----- Please notify pt her test was negative Xochitl Peters DO documented in this encounter [facility] 08-24-2023 Miscellaneous Notes Signed by Dr. Peters and faxed back to [phone]. Chela Davidson MA Fide ESCALANTEN for Oxygen Supplies placed in Dr. Peters green folder to be signed. Chela Davidson MA documented in this encounter [facility] 08-24-2023 Note HNO ID: [id number] Author: Xochitl Peters DO Service: ? Author Type: Physician Type: Progress Notes Filed: 09/04/2023 12:37 PM Note Text: SUBJECTIVE: 48 year old female here to establish. I have fully reviewed the past medical, surgical, social and family history and updated the Histories section of [facility]. Her former PCP was Ramona Anaya in [place]. Pt has a history of ESRD needing [...] DMII, but may have DMI. She sees [facility] She has chronic pain, and is under the care of [facility] She had a diabetic ulcer 4 years ago Since then she had removal of the left fifth metatarsal and left fifth toe She now has drop foot on the left, and has to wear a brace She sees [facility] in [place], who does her diabetic foot care Her foot ulcer just closed 2 weeks ago She will f/u with them on 09/16 She uses a wheelchair 95% of time She was bedridden for 2 years because of her left foot ulcers She now uses an electric wheelchair at home, and a manual wheelchair here. She was in the [place] ED on Wednesday She is on Keflex 500 mg qid for UTI, which she just started She had a positive urine test at the ED, but she has not had sexual intercourse in over 20 years. She was told by her former PCP that she needed to f/u with COMMERCIAL FINANCE MANAGER to confirm if this is accurate. She [...] Father Diabetes Mate (more content not included)... [facility] 08-24-2023 History of Presen t illness Narrative SUBJECTIVE: 48 year old female here to establish. I have fully reviewed the past medical, surgical, social and family history and updated the Histories section of [facility]. Her former PCP was Ramona Anaya in [place]. Pt has a history of ESRD needing [...] DMII, but may have DMI. She sees [facility] She has chronic pain, and is under the care of [place] [facility] She had a diabetic ulcer 4 years ago Since then she had removal of the left fifth metatarsal and left fifth toe She now has drop foot on the left, and has to wear a brace She sees [facility] in [place], who does her diabetic foot care Her foot ulcer just closed 2 weeks ago She will f/u with them on 09/16 She uses a wheelchair 95% of time She was bedridden for 2 years because of her left foot ulcers She now uses an electric wheelchair at home, and a manual wheelchair here. She was in the [place] ED on Wednesday She is on Keflex 500 mg qid for UTI, which she just started She had a positive urine test at the ED, but she has not had sexual intercourse in over 20 years. She was told by her former PCP that she needed to f/u with COMMERCIAL FINANCE MANAGER to confirm if this is accurate. She [...] with long-term current use of insulin ([facility]) - ICD9: 250.60, 357.2, V58.67, ICD10: E11.40, Z79.4 (primary diagnosis) Continue current meds 2. ESRD needing dialysis ([facility]) - ICD9: 585.6, ICD10: N18.6, Z99.2 Under the care of government affairs director 3. Primary hypertension - ICD9: 401.9, ICD10: I10 controlled 4. Vascular dialysis catheter in place ([facility]) - ICD9: V45.11, ICD10: Z99.2 5. AV fistula ([facility]) - ICD9: 447.0, ICD10: I77.0 6. Hyperlipidemia, [...] ICD9: 564.1, ICD10: K58.8 14. Diabetic gastroparesis ([facility]) - ICD9: 250.60, 536.3, ICD10: E11.43, K31.84 [...] Rx for shoes for ankle braces to [email or web address] Xochitl Peters DO I spent 45 minutes in the visit, with more than 50% of the total [id number] time of the visit in counseling / coordination of care. documented in this encounter [facility] 03-22-2023 Evaluation + Plan note Associated Problem(s): Wound of left foot Sees podiatry on Wednesday [facility] Work Phone: 03-22-2023 Evaluation + Plan note Associated Problem(s): Gastroparesis Promethazine 25 mg every 8 hours as needed for N&V- refilled Sees GI in [place] [facility] Work Phone: 03-22-2023 Miscellaneous Notes Associated Problem(s): Wound of left foot Sees podiatry on Wednesday Associated Problem(s): Gastroparesis Promethazine 25 mg every 8 hours as needed for N&V- refilled Sees GI in [place] Associated Problem(s): Benign essential hypertension BP is <130/80. Continue to take medications as prescribed. Continue diet (low salt) and exercise as advised. Associated Problem(s): AV fistula ([facility]) Managed by nephrology [place] Associated Problem(s): Class 3 severe obesity due to excess calories with serious comorbidity and body mass index (BMI) of 40.0 to 44.9 in adult ([facility]/HCC) Pt advised to institute a healthy, well-balanced meal with portion control and to exercise daily for at least 30-60 minutes. Associated Problem(s): Type 2 diabetes mellitus with circulatory disorder, with long-term current use of insulin ([facility]) [facility] in [place] Associated Problem(s): Mild intermittent asthma without complication Albuterol inhaler/nebulizer- refilled Associated Problem(s): End stage renal disease ([facility]/HCC) Goes to dialysis 3 x week. documented in this encounter [facility] Work Phone: 03-22-2023 Evaluation + Plan note Associated Problem(s): Benign essential hypertension BP is <130/80. Continue to take medications as prescribed. Continue diet (low salt) and exercise as advised. [facility] Work Phone: 03-22-2023 Evaluation + Plan note Associated Problem(s): AV fistula ([facility]) Managed by nephrology [place] [facility] Work Phone: 03-22-2023 Evaluation + Plan note Associated Problem(s): Class 3 severe obesity due to excess calories with serious comorbidity and body mass index (BMI) of 40.0 to 44.9 in adult ([facility]) Pt advised to institute a healthy, well-balanced meal with portion control and to exercise daily for at least 30-60 minutes. [facility] Work Phone: 03-16-2023 Evaluation + Plan note Associated Problem(s): Type 2 diabetes mellitus with circulatory disorder, with long-term current use of insulin ([facility]) [facility] [place] [facility] Work Phone: 03-16-2023 Evaluation + Plan note Associated Problem(s): Mild intermittent asthma without complication Albuterol inhaler/nebulizer- refilled [facility] Work Phone: 03-16-2023 Evaluation + Plan note Associated Problem(s): End stage renal disease ([facility]) Goes to dialysis 3 x week. T [facility] Work Phone: 03-16-2023 History of Presen t illness Narrative Subjective Patient ID: Xochitl Cherry is a 48 y.o. female who presents for [place] discharge follow up; med review and refills. KATHERINE Neri returns for [place] discharge follow up. She reports she was in the [place] for deconditioning after getting her fistula revised [...] to the area to help her out. [facility] for PT/OT. DM: follows with Dr. Brady-endocrinology in [place]. Asthma/intermittent: Uses albuterol inhaler as needed. Denies [...] nausea or vomiting. End stage renal disease ([facility]) Chronic migraine without aura without status migrainosus, not intractable Type 2 diabetes mellitus with other circulatory complication, with long-term current use of insulin ([facility]) Current mild episode of major depressive disorder without prior episode ([facility]) AV fistula ([facility]) Benign essential hypertension Class 3 severe obesity due to excess calories with serious comorbidity and body mass index (BMI) of 40.0 to 44.9 in adult ([facility]) Problem List Items Addressed This Visit AV fistula ([facility]) Managed by nephrology jonathan Benign essential hypertension BP is <130/80. Continue to take medications as prescribed. Continue diet (low salt) and exercise as advised. Current mild episode of major depressive disorder without prior episode ([facility]) End stage renal disease ([facility]) Goes to dialysis 3 x week. Gastroparesis Promethazine 25 mg every 8 hours as needed for N&V- refilled Sees GI in [place] Relevant Medications promethazine (Phenergan) 25 mg tablet Migraines Mild intermittent asthma without complication - Primary Albuterol inhaler/nebulizer- refilled Relevant Medications albuterol (Ventolin HFA) 90 mcg/actuation inhaler albuterol 2.5 mg /3 mL (0.083 %) nebulizer solution Type 2 diabetes mellitus with circulatory disorder, with long-term current use of insulin ([facility]) [facility] in [place] Class 3 severe obesity due to excess calories with serious comorbidity and body mass index (BMI) of 40.0 to 44.9 in adult ([facility]) Pt advised to institute a healthy, well-balanced meal with portion control and to exercise daily for at least 30-60 minutes. Follow up in October for Medicare wellness exam. Gets labs done at dialysis and endocrinology. documented in this encounter [facility] Work Phone: 03-16-2023 Instructions SUSANNA Cavanaugh - 03/16/2023 2:00 PM EDT BMI was above normal measurement. Current weight: Weight change since last visit (-) denotes wt loss Weight loss needed to achieve BMI 25: Lbs Weight loss needed to achieve BMI 30: Lbs Provided instructions on dietary changes Provided instructions on exercise documented in this encounter [facility] Work Phone: 09-07-2022 History of Presen t illness Narrative Halle returns for hospital follow up and renewal of [facility] services.November 12 is seeing Endocrinology Jesus not need iron or vitamin d as she gets these at dialysis.Was last in September 07 and then went to prison for 21 days and then came out on September 26.Neurology: has not been seen/ Was to follow up but did not hear from anyone.may need fistula replaced. has consult today in [place].Polyneuropathy: needs refill on Gabapentin 300 mg at [...] Possible surgery to have another one placed. [facility] 205 DO Work Phone: 09-07-2022 History of Presen t illness Narrative Halle returns for hospital follow up and renewal of [facility] services.November 12 is seeing Endocrinology Jesus not need iron or vitamin d as she gets these at dialysis.Was last in September 07 and then went to prison for 21 days and then came out on September 26.Neurology: has not been seen/ Was to follow up but did not hear from anyone.may need fistula replaced. has consult today in [place].Polyneuropathy: needs refill on Gabapentin 300 mg at [...] Possible surgery to have another one placed. [facility] 205 DO Work Phone: 05-15-2022 [...] in early ocial Hx:Tobacco: DeniesETOH: DeniesDrugs: DeniesCaffeine: [facility] Work Phone: [facility] Mild intermittent asthma without complication- Primary Gastroparesis End stage renal disease ([facility]) End stage renal disease Chronic migraine without aura without status migrainosus, not intractable Type 2 diabetes mellitus with other circulatory complication, with long-term current use of insulin ([facility]) Current mild episode of major depressive disorder without prior episode ([facility]) AV fistula ([facility]) Benign essential hypertension Essential hypertension, benign Class 3 severe obesity due to excess calories with serious comorbidity and body mass index (BMI) of 40.0 to 44.9 in adult ([facility]) documented in this encounter [facility] Work Phone: Evaluation note* Diagnosis Type 2 diabetes mellitus with diabetic neuropathy, with long-term current use of insulin ([facility])- Primary ESRD needing dialysis ([facility]) End stage renal disease Primary hypertension Unspecified essential hypertension Vascular dialysis catheter in place ([facility]) Renal dialysis status AV fistula ([facility]) Arteriovenous fistula, acquired Hyperlipidemia, mixed Mixed hyperlipidemia Seasonal allergies Allergic rhinitis, cause unspecified GERD without esophagitis Esophageal reflux Vitamin D deficiency Unspecified vitamin D deficiency Primary amenorrhea Absence of menstruation Foot drop, left foot Wheelchair dependent Wheelchair dependence Other irritable bowel syndrome Diabetic gastroparesis ([facility]) Type II or unspecified type diabetes mellitus [...] ankle and foot [facility] for [facility] Diagnostic Procedure Only (Routine) - Pending Review Specialty Diagnoses / Procedures Referred By Jackson t Referred To Contact [facility] Diagnoses Encounter for screening mammogram for breast cancer Procedures RAMBO SCREENING SCREENING MAMMOGRAPHY BI 2-VIEW BREAST INC Xochitl Roth DO [address] [place] [address] [facility] [address] [place] [address] Referral ID Status Reason Start Date Expiration Date Visits Requested Visits Authorized [id number] Pending Review Auto-Generat ed Referral 3 09/22/2024 1 1 [facility] Chief Complaint Pt presents to establish new PCP; previous pt of [facility] in [place], [place]; currently on dialysis; needing HHC with [...] without status migrainosus, not intractable Caroline Sousa, HEARING THERAPY DIRECTOR [facility] [place] [address] [facility] Referral ID Status Reason Start Date Expiration Date Visits Re quested Visits Authorized [id number] Closed 11/12/2022 11/12/2023 1 1 Summary Purpose Advance Directives No Advanced Directives Records FoundNo Advanced Directives Records FoundNo Advanced Directives Records FoundNo Advanced Directives Records Found Additional Source Comments INFORMATION SOURCE (unrecogn ized section and content) DATE CREATED AUTHOR AUTHOR'S ORGANIZ ATION 11/13/2022 [employer] DATE CREATED AUTHOR AUTHOR'S ORGANIZ ATION 05/14/2023 [facility] DATE CREATED AUTHOR AUTHOR'S ORGANIZ ATION 10/14/2023 [facility] Care Teams (unrecognized sec tion and content) Multi Disciplined Language Analyst Relationship Specialty Start Date End Date Xochitl Peters DO [address] [place] [id number] PCP - General Family Medicine 08/24/23 YarielmnMaddy gonzales MD [address] [place] [id number] Family Medicine 08/24/23 Multi Disciplined Language Analyst Relationship Specialty Start Date End Date Xochitl Peters DO [address] [place] [id number] PCP - General Family [facility] 08/24/23 YarielmnMaddy gonzales MD [address] [place] [id number] Family [facility] 08/24/23 Multi Disciplined Language Analyst Relationship Specialty Start Date End Date Xochitl Peters DO [address] [place] [id number] PCP - General Family [facility] 08/24/23 YarielmnMaddy gonzales MD [address] [place] [id number] Family Medicine 08/24/23 <item> Privacy Markings (unrecogniz [...] or prosecute any alcohol or drug abuse patient.[facility] the event this information is protected by the Federal Confidentiality of Alcohol and Drug Abuse Patient Records regulations: The Federal rules restrict any use of the information to criminally investigate or prosecute any alcohol or drug abuse patient.[facility] the event this information is protected by the Federal Confidentiality of Alcohol and Drug Abuse Patient Records regulations: The Federal rules restrict any use of the information to criminally investigate or prosecute any alcohol or drug abuse patient.[facility] Campus[facility] the event this information is protected by the Federal Confidentiality of Alcohol and Drug Abuse Patient Records regulations: The Federal rules restrict any use of the information to criminally investigate or prosecute any alcohol or drug abuse patient.[facility] Reason for Visit (unrecogniz ed section and content) Reason Comments Results Reason Onset Date Comments Refill Request 09/02/2023 Reason Comments New Patient Establish care previ ous pcp was Dr. Anaya in [place]. Needs medication refills FOR RECORDS PERTAINING TO [...] BE BASED ON THE PRIMARY CLINICAL RECORDS. [facility] [employer] [facility]. provides no warranty or guarantee of the accuracy or completeness of information in this document.
[2023-10-23 20:08] LABS: Hemoglobin 9.4 g/dL (12.0-15.0)
[2023-10-23 20:58] LABS: Hemoglobin A1c 12.3 % (3.8-5.6)
[2023-10-23] MEDS: Atorvastatin Calcium 40 MG Tablet PO (21:27)
[2023-10-23] MEDS: Bumetanide 0.5 MG Tablet 1 MG PO (21:27)
[2023-10-23] MEDS: Tamsulosin HCl 0.4 MG Capsule 0.400000000000000022 MG PO (21:27)
[2023-10-23] MEDS: Insulin Glargine-YFGN 100 UNIT/ML Pen 26 UNIT SC (21:28)
[2023-10-23] MEDS: INSULIN ASPART 100 UNIT/ML INSULN.PEN 15 UNIT SQ (21:28)
[2023-10-23] MEDS: Gabapentin 300 MG Capsule PO (21:28)
[2023-10-23] MEDS: SUCROFERRIC OXYHYDROXIDE 500 MG TAB.CHEW PO (21:29)
[2023-10-23] MEDS: Acetaminophen 500 MG Tablet 1000 MG PO (21:31)
[2023-10-23 22:01] LABS: Bedside Glucose 217 mg/dL (74-106)
[2023-10-23] MEDS: 0.9% Saline Lock 10 ML Syringe IV (22:44)
[2023-10-23] MEDS: Morphine 2 MG/ML Syringe IV (22:44)
[2023-10-24] VITALS (7 sets, daily range): BP systolic 108–160; BP diastolic 59–74; PULSE 63–76; RESP 16–18; TEMP 36.1–36.7; O2SAT 93–99; BMI 47.1
[2023-10-24 00:29] LABS: Hemoglobin 8.6 g/dL (12.0-15.0)
[2023-10-24] MEDS: Pantoprazole Sodium 40 MG in 0.9% Normal Saline (100mL MB+) 100 ML 330 MG IV ×2 (04:59→22:00)
[2023-10-24] MEDS: 0.9% Saline Lock 10 ML Syringe IV ×2 (04:59→12:09)
[2023-10-24 05:07] LABS: Absolute Lymphocyte Count 2.02 X10^3/uL (0.83-4.51); Absolute Neutrophil Count 4.2 X10^3/uL (2.0-7.7); Basophil# 0.08 X10^3/uL; Basophil% 1.2 % (0-1); Eosinophil# 0.27 X10^3/uL; Eosinophils% 3.9 % (0-5); Hematocrit 25.3 % (37-47); Hemoglobin 8.3 g/dL (12.0-15.0); Lymphocyte # 2.02 X10^3/ul (0.83-4.51); Lymphocyte % 29.1 % (19-41); Mean Corp Hgb Conc 32.8 g/dL (32-36); Mean Corpuscular Hgb 29.5 pg (27.0-32.0); Mean Platelet Vol. 9.6 fl (6.2-12.0); Monocyte# 0.38 X10^3/uL; Monocyte% 5.5 % (0-10); NRBC Flagged by Analyzer 0 % (0-5); Neutrophil # 4.15 X10^3/uL (2.7-7.7); Neutrophil % 59.7 % (47-70); Platelet Count 232 K/mm3 (150-450); RBC Distribution Width SD 42.4 fl (35.1-43.9); Red Blood Count 2.81 M/mm3 (4.2-5.4); White Blood Count 6.9 K/mm3 (4.4-11.0)
[2023-10-24 05:23] LABS: Bedside Glucose 125 mg/dL (74-106)
[2023-10-24 05:29] LABS: Troponin-I HS 31 pg/mL (3.0-54.0)
[2023-10-24 06:28] LABS: ALB/GLOB Ratio 0.7 RATIO (0.9-2.4); AST(SGOT) 14 U/L (15-37); Alanine Aminotransfer ALT/SGPT 18 U/L (13-56); Albumin, Serum 2.4 g/dL (3.2-5.0); Alkaline Phosphatase 88 U/L (45-117); Anion Gap 9 (5-15); BUN 55 mg/dL (7-18); BUN/Creat Ratio 9.2 RATIO (10-20); Calcium,Total 8.5 mg/dL (8.5-10.1); Chloride 105 mmol/L (98-107); Creatinine, Serum 5.97 mg/dL (0.55-1.02); EST Glomerular Filtration Rate 8 mL/min (>60); Est Glom Filt Rate - Afr Amer 10 mL/min (>60); Estimated Creatinine Clearance 16.84 ml/min; Globulin 3.4 g/dL (2.2-4.2); Glucose 109 mg/dL (74-106); Magnesium 1.8 mg/dL (1.6-2.6); Phosphorus 5.3 mg/dL (2.5-4.9); Potassium 4.3 mmol/L (3.5-5.1); Protein, Total 5.8 g/dL (6.4-8.2); Sodium Level 135 mmol/L (136-145); Thyroid Stim Hormone (TSH) 2.72 uIU/mL (0.358-3.74)
--- NOTE | 2023-10-24 08:15 | CPS ---
pt refused to do smi and pep at this time
[2023-10-24] MEDS: Aspirin E.C. 81 MG Tablet PO (09:36)
[2023-10-24] MEDS: Miconazole Nitrate 43 GM Bottle 1 APPLIC TOPICAL ×2 (09:36→21:34)
[2023-10-24] MEDS: Folic Acid/Vitamin B Comp W-C 1 Capsule 1 CAP PO (09:36)
[2023-10-24] MEDS: lamoTRIgine 25 MG Tablet 50 MG PO (09:36)
[2023-10-24] MEDS: Bumetanide 0.5 MG Tablet 1 MG PO (09:37)
[2023-10-24] MEDS: Loratadine 10 MG Tablet PO (09:37)
[2023-10-24] MEDS: Senna/Docusate Sodium 1 Tablet 2 TABLET PO (09:37)
[2023-10-24] MEDS: SUCROFERRIC OXYHYDROXIDE 500 MG TAB.CHEW PO ×2 (09:38→17:47)
[2023-10-24] MEDS: Losartan Potassium 100 MG Tablet PO (09:38)
[2023-10-24 10:29] LABS: Bedside Glucose 115 mg/dL (74-106)
[2023-10-24 11:39] LABS: Hemoglobin 9.1 g/dL (12.0-15.0)
[2023-10-24] MEDS: Bumetanide 1 MG/4 ML Vial 2 MG IV ×2 (12:09→17:48)
[2023-10-24 12:19] LABS: Bedside Glucose 118 mg/dL (74-106)
--- NOTE | 2023-10-24 12:52 | PCM.PN.HOSP ---
Reason for Visit Reason for Visit: Diagnoses Hypertensive urgency (10/24/23) Pleural effusion, not elsewhere classified (10/24/23) Hematemesis (10/24/23) Unspecified abdominal pain (10/24/23) Hyperglycemia, unspecified (10/24/23) Patient's noncompliance with other medical treatment and regimen due to unspecified reason (10/24/23) Subjective Subjective Patient seen at bedside this morning. Was sitting up comfortably in bed, fatigued appearing but otherwise in no acute distress. Patient did have her own Venturi mask on when out of the room, as she was attempting to sleep. States she wears this at home when she sleeps. Patient continues to have mild shortness of breath at rest this morning, similar to yesterday. Continues to have some flank pain this morning as well as generalized back pain. States that she has chronic back pain at home and takes [place] twice daily for this, and this is typically helpful. Patient does make some urine, has not had much urine output on her home p.o. Bumex since admission. She otherwise denies any acute pain or discomfort. No other acute concerns morning. Objective Data Objective Data Vital Signs: Vital Signs Temp Pulse Resp BP Pulse Ox O2 Del Method FiO2 98.1 F 73 18 133/59 H 99 Venturi Mask 28 10/24/23 09:30 10/24/23 09:30 10/24/23 09:30 10/24/23 12:04 10/24/23 11:30 10/24/23 11:30 10/24/23 11:30 Oxygen Delivery Method Venturi Mask Weight: 136.5 kg Body Mass Index (BMI) 47.1 Intake & Output: Intake and Output for Last 24 Hours 10/22/23 10/23/23 10/24/23 23:59 23:59 23:59 Intake Total 539 / 539 Output Total 1100 / 1100 Balance -561 / -561 Lab / Micro Data 10/24/23 11:20 10/24/23 04:40 Labs: Laboratory Results - last 24 hr 10/23/23 13:50: WBC 6.9, RBC 3.62 L, Hgb 10.8 L, Hct 32.5 L, MCV 89.8, MCH 29.8, MCHC 33.2, RDW Std Deviation 42.0, RDW Coeff of Juan 12.7, Plt Count 275, MPV 9.6, Immature Gran % (Auto) 0.700, Neut % (Auto) 74.0 H, Lymph % (Auto) 17.3 L, [place] % (Auto) 3.8, Eos % (Auto) 3.3, Baso % (Auto) 0.9, Absolute Neuts (auto) 5.1, Absolute Lymphs (auto) 1.19, Nucleated RBC % 0, Sodium 131 L, Potassium 4.4, Chloride 99, Carbon Dioxide 22.0, Anion Gap 10, BUN 54 H, Creatinine 5.94 H, Estim Creat Clear Calc 17.00, Est GFR (MDRD) Af Amer 10 L, Est GFR (MDRD) Non-Af 8 L, BUN/Creatinine Ratio 9.1 L, Glucose 713 H*, Calcium 9.2, Troponin I High Sens 24, Lipase 34, Acetone Level NEGATIVE 10/23/23 17:38: POC Glucose 470 H* 10/23/23 19:27: Hgb 9.4 L, Hemoglobin A1c 12.3 H 10/23/23 21:14: POC Glucose 217 H 10/24/23 00:15: Hgb 8.6 L 10/24/23 03:49: POC Glucose 125 H 10/24/23 04:40: WBC 6.9, RBC 2.81 L, Hgb 8.3 L, Hct 25.3 L, MCV 90.0, MCH 29.5, MCHC 32.8, RDW Std Deviation 42.4, RDW Coeff of Juan 13.0, Plt Count 232, MPV 9.6, Immature Gran % (Auto) 0.600, Neut % (Auto) 59.7, Lymph % (Auto) 29.1, [place] % (Auto) 5.5, Eos % (Auto) 3.9, Baso % (Auto) 1.2 H, Absolute Neuts (auto) 4.2, Absolute Lymphs (auto) 2.02, Nucleated RBC % 0, Sodium 135 L, Potassium 4.3, Chloride 105, Carbon Dioxide 21.0, Anion Gap 9, BUN 55 H, Creatinine 5.97 H, Estim Creat Clear Calc 16.84, Est GFR (MDRD) Af Amer 10 L, Est GFR (MDRD) Non-Af 8 L, BUN/Creatinine Ratio 9.2 L, Glucose 109 H, Calcium 8.5, Phosphorus 5.3 H, Magnesium 1.8, Total Bilirubin 0.40, AST 14 L, ALT 18, Alkaline Phosphatase 88, Troponin I High Sens 31, Total Protein 5.8 L, Albumin 2.4 L, Globulin 3.4, Albumin/Globulin Ratio 0.7 L, TSH 2.72 10/24/23 09:33: POC Glucose 115 H 10/24/23 11:20: Hgb 9.1 L 10/24/23 12:01: POC Glucose 118 H ABG Data ABG results: ABG 10/23/23 15:39 Specimen Type MALIA Sample Site Not entered VBG pH 7.24 L VBG pO2 30 VBG HCO3 20 L VBG Total CO2 21 L VBG O2 Sat (Calc) 47 L VBG Base Excess -8 L POC Mix VBG pCO2 Pt Tmp 46.0 O2 Delivery Device Room Air Radiography Diagnostic Testing: Radiology Impression Chest CTA 10/23/23 13:55 IMPRESSION: 1. Normal CTA chest examination, without a demonstrated pulmonary embolism or arterial dissection. 2. Trace right pleural effusion. Small to moderate-sized left pleural effusion with mild basilar atelectasis. Subsegmental atelectasis or small foci of fibrosis is present in the lingula and right middle lobe. No nodules are present. 3. Small pericardial effusion Electronically Signed: Brad Brewer MD at 15:17 EST Reading Location ID and State: [address] [place] [address] , Service support , Abdomen/Pelvis CTA 10/23/23 14:00 IMPRESSION: 1. Normal CTA chest examination, without a demonstrated pulmonary embolism or arterial dissection. 2. Trace right pleural effusion. Small to moderate-sized left pleural effusion with mild basilar atelectasis. Subsegmental atelectasis or small foci of fibrosis is present in the lingula and right middle lobe. No nodules are present. 3. Small pericardial effusion Electronically Signed: Brad Brewer MD at 15:17 EST , Physical Exam Const alert, oriented x3 and no apparent distress Constitutional Narrative: Middle-aged female, morbidly obese, sitting up comfortably in bed, conversing normally, no acute distress. General Appearance: cooperative and comfortable HEENT normocephalic, head/scalp atraumatic, hearing grossly normal bilaterally, nasal mucous membranes and turbinates normal and moist oral mucous membranes Eyes PERRL, EOMs intact bilaterally and conjunctivae normal Neck full ROM, no lymphadenopathy and supple Lymph Lymphatic: no lymphadenopathy noted Chest inspection of chest normal Resp normal respiratory effort, normal air movement, no use of accessory muscles and clear to auscultation bilaterally Resp Narrative: Wearing Venturi mask during our encounter, as she was trying to sleep. Decreased air movement in bilateral lung bases, no wheezing or crackles noted. No increased work of breathing noted. Cardio regular rate, regular rhythm, no murmurs and peripheral pulses 2+ throughout GI normal to inspection, nondistended, normoactive bowel sounds, soft to palpation, non-tender and non-distended Back/Spine normal ROM Extremity normal to inspection, full ROM and no pedal edema Skin no rashes or lesions noted Neuro no focal motor deficits and no sensory deficits noted Speech: speech normal Psych mental status grossly normal Assessment & Plan Assessment/Plan (1) Hypertensive urgency: (2) Acute hyperglycemia: (3) End-stage renal disease (ESRD): (4) Pleural effusion, left: (5) Medical non-compliance: (6) Chronic kidney disease with end stage renal failure on dialysis: PLAN: Plan Patient is a 48-year-old female who presented to [facility] ED on 10/23/2023 with worsening bilateral flank pain and shortness of breath after missed HD sessions. 1. Hypertensive urgency, improved Presumed secondary to volume overload from missed HD sessions and medication nonadherence at home. BP markedly elevated on admit. No signs of endorgan damage on admission to suggest hypertensive emergency. ? BP much improved after resuming home medications. Continue home losartan and Flomax. Transitioned to IV Bumex on 10/24 as noted below. As needed labetalol for SBP greater than 160. 2. ESRD on HD with missed HD sessions, medication nonadherence ? Nephrology consulted. Planning for HD on Wednesday 10/25. Does make some urine, switched to IV Bumex 2 mg twice daily on 10/24 to maximize volume removal prior to HD. Trend daily BMP. 3. Type 2 diabetes mellitus with marked hyperglycemia, improving Blood glucose greater than 700 on admit, no evidence of DKA. Presumed secondary to medication nonadherence. Home regimen of insulin detemir 26 units at night, insulin aspart 15 units 3 times daily AC. Blood sugar significantly improved with 35 units of subcu insulin in the ED. A1c 12.6%. ? Continue Lantus 26 units at bedtime, home bolus insulin 15 units 3 times daily AC (allergic to Humalog) plus sliding scale insulin, adjust as needed. 4. Left-sided pleural effusion ? CTA chest on admit showed trace right pleural effusion, small to moderate left pleural effusion. Stable on room air but reports shortness of breath on exertion. IV Bumex as noted above. Planning for thoracentesis on 10/25. 5. Abdominal pain and nausea/vomiting, improving ? Unclear etiology. No further episodes of nausea or vomiting since admission. May have some degree of gastroparesis given poorly controlled diabetes. CT abdomen pelvis on admit unremarkable. Continue Reglan with meals. Outpatient follow-up with GI as needed. Chronic medical conditions: ? Morbid obesity: BMI 47 on admit. Encouraged lifestyle medications. Complicates hospital course, care and prognosis. ? GERD: Continue home PPI and sucralfate. ? Asthma: Continue albuterol inhaler as needed. ? Hyperlipidemia: Continue home statin. ? Chronic anemia: Hemoglobin 10.9 on admit, baseline hemoglobin 10-11. Stable. Secondary to kidney disease. ? Nocturnal hypoxia: Continue home Venturi mask at night as needed. ? History of stroke: Continue home aspirin. ? Mood disorder: Continue home Lamictal. ? Chronic pain: [place] twice daily as needed. DVT prophylaxis: Heparin subcu CODE STATUS: Full code, verified Expected disposition: Home, 1 to 2 days Total clinical time spent by myself addressing the patient's medical issues, reviewing all the data, and collaborating with patient's care team: 35 minutes. Charges/Coding Visit Charges Inpatient E&M: [id number] Subs Hosp L2
--- NOTE | 2023-10-24 13:46 | CPS ---
SMI AND PEP HELD, PT SLEEPING.
[2023-10-24 15:27] LABS: Bedside Glucose 109 mg/dL (74-106)
[2023-10-24 17:08] LABS: Bedside Glucose 116 mg/dL (74-106)
[2023-10-24] MEDS: HYDROcodone Bitartrate/Apap 5/325 Tablet PO (17:55)
[2023-10-24] MEDS: Sucralfate 1 GM Tablet PO (18:05)
[2023-10-24] MEDS: Gabapentin 300 MG Capsule PO (21:35)
[2023-10-24] MEDS: Insulin Glargine-YFGN 100 UNIT/ML Pen 26 UNIT SC (21:35)
[2023-10-24] MEDS: Atorvastatin Calcium 40 MG Tablet PO (21:35)
[2023-10-24] MEDS: Tamsulosin HCl 0.4 MG Capsule 0.400000000000000022 MG PO (21:35)
[2023-10-24 22:22] LABS: Bedside Glucose 193 mg/dL (74-106)
[2023-10-24] MEDS: Acetaminophen 325 MG Tablet 650 MG PO (23:18)
[2023-10-25] VITALS (13 sets, daily range): BP systolic 139–271; BP diastolic 56–76; PULSE 70–77; RESP 14–18; TEMP 36.4–36.7; O2SAT 94–100; BMI 46.7; BMI 44.9
[2023-10-25] MEDS: HYDROcodone Bitartrate/Apap 5/325 Tablet PO (03:56)
[2023-10-25 05:07] LABS: AST(SGOT) 13 U/L (15-37); Alanine Aminotransfer ALT/SGPT 16 U/L (13-56); Albumin, Serum 2.3 g/dL (3.2-5.0); Alkaline Phosphatase 91 U/L (45-117); Globulin 3.5 g/dL (2.2-4.2); LDH 232 U/L (84-246); Protein, Total 5.8 g/dL (6.4-8.2)
[2023-10-25] MEDS: SUCROFERRIC OXYHYDROXIDE 500 MG TAB.CHEW PO ×2 (08:47→11:53)
[2023-10-25] MEDS: Miconazole Nitrate 43 GM Bottle 1 APPLIC TOPICAL (08:47)
[2023-10-25] MEDS: Pantoprazole Sodium 40 MG in 0.9% Normal Saline (100mL MB+) 100 ML 330 MG IV (08:47)
[2023-10-25] MEDS: Folic Acid/Vitamin B Comp W-C 1 Capsule 1 CAP PO (08:48)
[2023-10-25] MEDS: Aspirin E.C. 81 MG Tablet PO (08:48)
[2023-10-25] MEDS: lamoTRIgine 25 MG Tablet 50 MG PO (08:48)
[2023-10-25] MEDS: Senna/Docusate Sodium 1 Tablet 2 TABLET PO (08:49)
[2023-10-25] MEDS: PureFlow B 2K Dialysis Soln 1 BAG 6 BAG PF (09:17)
[2023-10-25] MEDS: 0.9% Normal Saline 1,000 ML IV.SOLN. 1000 ML OPERA.SITE (09:17)
[2023-10-25 09:23] LABS: Bedside Glucose 103 mg/dL (74-106)
--- NOTE | 2023-10-25 10:11 | PCM.PN.HOSP ---
Reason for Visit Reason for Visit: Diagnoses Hypertensive urgency (10/24/23) Pleural effusion, not elsewhere classified (10/24/23) Hematemesis (10/24/23) End stage renal disease (10/24/23) Unspecified abdominal pain (10/24/23) Hyperglycemia, unspecified (10/24/23) Patient's noncompliance with other medical treatment and regimen due to unspecified reason (10/24/23) Dependence on renal dialysis (10/24/23) Subjective Subjective Patient is a 48-year-old female who presented to [facility] ED on 10/23/2023 with worsening bilateral flank pain and shortness of breath after missed HD sessions. Objective Data Objective Data Vital Signs: Vital Signs Temp Pulse Resp BP Pulse Ox O2 Del Method FiO2 97.6 F L 75 15 156/75 H 94 Room Air 28 10/25/23 08:31 10/25/23 09:44 10/25/23 09:44 10/25/23 09:44 10/25/23 08:31 10/25/23 09:44 10/25/23 07:12 Oxygen Delivery Method Room Air Weight: 135.4 kg Body Mass Index (BMI) 46.7 Intake & Output: Intake and Output for Last 24 Hours 10/23/23 10/24/23 10/25/23 23:59 23:59 23:59 Intake Total 889 / 1329 790 / 790 Output Total 1100 / 1100 Balance -211 / 229 790 / 790 Lab / Micro Data 10/24/23 11:20 10/24/23 04:40 Labs: Laboratory Results - last 24 hr 10/24/23 09:33: POC Glucose 115 H 10/24/23 11:20: Hgb 9.1 L 10/24/23 12:01: POC Glucose 118 H 10/24/23 15:08: POC Glucose 109 H 10/24/23 16:50: POC Glucose 116 H 10/24/23 21:32: POC Glucose 193 H 10/25/23 04:05: Total Bilirubin 0.30, Direct Bilirubin 0.10, AST 13 L, ALT 16, Alkaline Phosphatase 91, Lactate Dehydrogenase 232, Total Protein 5.8 L, Albumin 2.3 L, Globulin 3.5 10/25/23 08:20: POC Glucose 103 Physical Exam Narrative GENERAL: cooperative HEENT: Atraumatic; normocephalic EYES; Anicteric, Normal Conjunctiva NECK; supple, normal thyroid, RESPIRATORY: Diminished to auscultation CARDIOVASCULAR: Regular S1 S2, GI: soft, normoactive bowel sounds, : No Renal angle tenderness; EXTREMITIES: No edema, no clubbing, MUSCULOSKELETAL: no muscle wasting NEURO: Awake; no lateralizing signs. SKIN: No Rash PSYCH; Flat affect Assessment & Plan Assessment/Plan (1) Hypertensive urgency: (2) Acute hyperglycemia: (3) End-stage renal disease (ESRD): (4) Pleural effusion, left: (5) Medical non-compliance: (6) Chronic kidney disease with end stage renal failure on dialysis: PLAN: Plan Patient is a 48-year-old female who presented to [facility] ED on 10/23/2023 with worsening bilateral flank pain and shortness of breath after missed HD sessions. 1. Acute hypertensive urgency ? Following missed dialysis. Patient blood pressure did improve with dialysis sessions and resumption of home medications. Patient was counseled on the need to be compliant with both her dialysis as well as her home meds 2. ESRD on HD with missed HD sessions, medication nonadherence ? Nephrology consulted dialysis orders 3. Left-sided pleural effusion ? CTA chest on admit showed trace right pleural effusion, small to moderate left pleural effusion. Stable on room air but reports shortness of breath on exertion. Scheduled to undergo ultrasound-guided thoracocentesis on 10/25/2023 4. 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 Patient blood glucose markedly elevated. Did resume home regimen 5. Dyslipidemia -Patient is on statin therapy, continued at home dose 6. GERD ? On PPI 7. Class III obesity with BMI of 46 ? Weight loss advised 8. Mild intermittent asthma ? Bronchodilator treatment as needed 9. Dyslipidemia -Patient is on statin therapy, continued at home dose 10. Nocturnal hypoxia ? Patient is on home Venturi mask 11. Anemia - Secondary to chronic disorder monitoring H&H and transfuse if patient becomes symptomatic or hemoglobin falls below 7 12. History of previous CVA ? Patient is on antiplatelet therapy with Lamictal 13. Chronic pain syndrome patient is on [place] 14. Mood disorder ? Patient is on Lamictal 15. DVT prophylaxis ? SC heparin Time spent in the patient's overall evaluation,decision-making process, review of diagnostic data, adjustment of management, discussion with other providers, nursing nursing and ancillary staff involved in patient's care documentation, 50 Minutes Charges/Coding Visit Charges Inpatient E&M: 15477 Subs Hosp L3
[2023-10-25] MEDS: Sucralfate 1 GM Tablet PO ×2 (11:53→15:59)
[2023-10-25] MEDS: Losartan Potassium 100 MG Tablet PO (11:53)
--- NOTE | 2023-10-25 12:15 | PCM.CONS.R ---
Assessment & Plan Assessment/Plan (1) End-stage renal disease (ESRD): PLAN: On hemodialysis. Seen on dialysis today. No new complaints. UF as tolerated. Usual dialysis time is 4 hours 15 minutes. She says she has been unable to sit through the whole treatment due to nausea, vomiting from gastroparesis. Explained that fluid removal might be limited if she is not sleeping through the whole treatment. Insisting on cutting back on treatment. Reviewed clearance, 1.7, we will try 4 hours. Hypertension. Chronic. Some of it could be related to persistent nausea. No gastroparesis. UF as tolerated. As per last treatment records, she was 6 kg above her dry weight. Prior to that she missed several treatments. Transportation issues. Will call social security assessor at the dialysis unit to discuss. HPI Consult Data Date of Consult: 10/25/23 HPI Narrative Reason for Consultation: ESRD HPI Narrative: XOCHITL CHERRY, is a 48 F who presents to the hospital with uncontrolled hypertension. She has known history of ESRD, on dialysis 3 times a week. Missed dialysis for several days last week due to transportation issues. Primary cause of ESRD was diabetes. She has other associated complications including gastroparesis. Having difficulty sitting for the dialysis due to gastroparesis related issues. She lives in [facility], gets dialysis in [facility]. Apparently her car broke down and she has been unable to get transportation [place] Seen on dialysis today. Blood pressure baseline. Reviewed records from dialysis, blood pressure has been running high recently, she has not been closer to dry weight due to issues with dialysis. [facility] Medical History Anxiety Arthritis Asthma Fleming esophagus Blackout Bruising delivery delivered Chronic kidney disease Depression Dietary restriction Difficulty swallowing Disc disorder Easy bruising ESRD needing dialysis FH: cholecystectomy Fibromyalgia, primary Former smoker Gastric reflux High cholesterol History of CHF (congestive heart failure) History of Clostridium difficile infection History of echocardiogram History of edema History of stress test History of ulceration Hypertension Hypertension Hypertensive urgency Injury of head and neck Insulin dependent diabetes mellitus Left foot amputee (~2019) Left hand pain Loss of hearing Low iron LUE weakness Migraine headache On home oxygen therapy Seasonal allergies Shortness of breath on exertion Stroke (~2021) Syncope Thyroid disease Transitioned from acute care to home health care Uses wheelchair Vision impairment Walker as ambulation aid Wears glasses Home Medications aspirin 81 mg tablet,delayed release 81 mg PO DAILY HEART HEALTH 06/23/22 [History Last Taken 09/05/23] bumetanide 1 mg tablet 1 mg PO BID FLUID 06/23/22 [History Last Taken 09/05/23] cetirizine 10 mg tablet 10 mg PO DAILY ALLERGIES 06/23/22 [History Last Taken 09/05/23] losartan 50 mg tablet 100 mg PO DAILY BLOOD PRESSURE 06/23/22 [History Last Taken 09/05/23] pantoprazole 40 mg tablet,delayed release 40 mg PO DAILY ACID REFLUX 06/23/22 [History Last Taken 09/05/23] tamsulosin 0.4 mg capsule 0.4 mg PO QHS BLADDER 06/23/22 [History Last Taken 09/05/23] promethazine 25 mg tablet 25 mg PO Q6H PRN NAUSEA/VOMITING 09/01/22 [History Last Taken Unknown] atorvastatin 40 mg tablet 40 mg PO QHS #30 tabs 09/04/22 [Rx Last Taken 09/05/23] albuterol sulfate 2.5 mg/3 mL (0.083 %) solution for nebulization 2.5 mg inhalation Q4H PRN SOB 01/07/23 [History Last Taken 01/19/23] sucroferric oxyhydroxide 500 mg chewable tablet (Velphoro) 500 mg PO TID 01/07/23 [History Last Taken 09/05/23] cyclobenzaprine 10 mg tablet 10 mg PO TID PRN PRN Breakthrough Pain (>4/10) 7 days #21 tabs 01/22/23 [Rx Last Taken 09/05/23] gabapentin 100 mg capsule 300 mg (3 x 100 mg) PO QHS NERVE PAIN #21 caps 01/22/23 [Rx Last Taken 09/05/23] flash glucose sensor (FreeStyle Gissell 2 Sensor kit) #6 ea 03/16/23 [Rx Last Taken Unknown] hydrocodone 7.5 mg-acetaminophen 325 mg tablet 1 tab PO Q6H PRN pain 3 days #12 tabs 04/06/23 [Rx Last Taken 09/05/23] hydrocodone 7.5 mg-acetaminophen 325 mg tablet 1 tab PO Q6H PRN pain 3 days #12 tabs 04/12/23 [Rx Last Taken Unknown] insulin detemir U-100 100 unit/mL (3 mL) subcutaneous pen 26 unit (0.26 mL) subcut QHS DIABETES #30 mL 08/04/23 [Rx Last Taken 09/03/23] pen needle, diabetic 32 gauge x 32 (BD Ultra-Fine Laura Pen Needle) #400 ea 08/04/23 [Rx Last Taken Unknown] acetaminophen 500 mg tablet 1,000 mg PO Q6H PRN pain 08/13/23 [History Last Taken Unknown] dicyclomine 10 mg capsule 10 mg PO BID stomach 08/13/23 [History Last Taken Unknown] insulin aspart U-100 100 unit/mL (3 mL) subcutaneous pen (Novolog FlexPen U-100 Insulin aspart) 15 unit subcut TID DIABETES 08/13/23 [History Last Taken 09/05/23] vitamin B complex-vitamin C-folic acid 0.8 mg tablet (Nephro-Chris) 1 tab PO DAILY supplement 08/13/23 [History Last Taken 09/05/23] dicyclomine 10 mg capsule 10 mg PO BID #60 caps 08/14/23 [Rx Last Taken 09/05/23] lamotrigine 25 mg chewable dispersible tablet 50 mg (2 x 25 mg) PO DAILY #60 ea 08/14/23 [Rx Last Taken 09/05/23] pantoprazole 40 mg tablet,delayed release 40 mg PO DAILY #30 tabs 08/14/23 [Rx Last Taken Unknown] sennosides 8.6 mg-docusate sodium 50 mg tablet (Stool Softener-Stimulant Laxative) 2 tab PO DAILY #0 tabs 08/14/23 [Rx Last Taken Unknown] sucralfate 1 gram tablet 1 g PO TID@0700,1100,1600 #90 tabs 08/14/23 [Rx Last Taken 09/05/23] Allergy/AdvReac Type Severity Reaction Status Date / Time lidocaine Allergy Severe Rash Verified 10/23/23 13:36 bacitracin Allergy Intermediate blisters Verified 10/23/23 13:36 hydrogen peroxide Allergy Intermediate blisters Verified 10/23/23 13:36 isopropyl alcohol Allergy Intermediate blisters Verified 10/23/23 13:36 Sulfa (Sulfonamide Allergy Intermediate Rash Verified 10/23/23 13:36 Antibiotics) Bleach (Sodium Hypochlorite) Allergy Hives Verified 10/23/23 13:36 insulin lispro Allergy HIVES, Verified 10/23/23 13:36 [From Humalog U-100 Insulin] REDNESS Latex, Natural Rubber Allergy Rash Verified 10/23/23 13:36 ondansetron [From Zofran] AdvReac Severe Constipatio Verified 10/23/23 13:36 n dicyclomine AdvReac Mild Vomiting Verified 10/23/23 13:36 metformin AdvReac Vomiting Verified 10/23/23 13:36 neomycin AdvReac HIVES, Verified 10/23/23 13:36 [From Neosporin REDNESS ([id number])] polymyxin B AdvReac HIVES, Verified 10/23/23 13:36 [From Neosporin REDNESS ([id number])] Family History Other Arthritis Asthma CVA (cerebral vascular accident) Diabetes Heart disease High cholesterol Hypertension Kidney disease Osteoporosis Seizures Surgical History H/O left knee surgery H/O right knee surgery History of arteriovenostomy for renal dialysis History of bladder surgery History of History of cholecystectomy History of foot surgery History of infusaport central venous catheter removal History of liver biopsy History of lumpectomy of right breast History of shoulder surgery History of thoracentesis Hx of tonsillectomy Social History household members: family housing: house Smoking Status: Former smoker alcohol intake: never ROS ROS Narrative Negative except above Physical Exam Narrative Alert awake oriented x 3 no obvious distress no pallor no icterus no JVD s1s2 no murmurs lungs clear abdomen soft no organomegaly no edema no cyanosis Lab / Micro Data 10/24/23 11:20 10/24/23 04:40 Labs: Laboratory Results - last 24 hr 10/24/23 12:01: POC Glucose 118 H 10/24/23 15:08: POC Glucose 109 H 10/24/23 16:50: POC Glucose 116 H 10/24/23 21:32: POC Glucose 193 H 10/25/23 04:05: Total Bilirubin 0.30, Direct Bilirubin 0.10, AST 13 L, ALT 16, Alkaline Phosphatase 91, Lactate Dehydrogenase 232, Total Protein 5.8 L, Albumin 2.3 L, Globulin 3.5 10/25/23 08:20: POC Glucose 103
[2023-10-25 12:22] LABS: Bedside Glucose 159 mg/dL (74-106)
--- NOTE | 2023-10-25 14:30 | CASEMGMT ---
BEATRICE ESCALANTE Face to Face with patient for initial transition planning/care coordination assessment. BEATRICE ESCALANTE introduced self and role at [facility]. Patient lying in bed, alert and oriented. Patient willing to participate in assessment and is able to answer all questions appropriately. Care providers, pharmacy, and demographics verified. Patient wishes to discharge home, denies need for home health at this time. Patient states she has no further needs or concerns at this time. CM to follow for discharge planning needs that may arise. PCP: Fran Specialists: , jockey agent; edward Cooper; Jhoan coordinate measuring machine technician; [facility] Preferred Pharmacy: [facility] Prescription Benefit: yes Living Will/HPOA: none LNOK: daughter, cousin Living Arrangements: Patent lives with daughter, cousin and 11 other members in a 3 story home with 4 steps and grab bars to enter. Patient states she toilets self, family assists with bathing and dressing. Transportation: Thiernon states car has broken down and has no transportation. SW provided resources for transportation. BEATRICE ESCALANTE encouraged patient to discuss with SW at [facility] for HD appts DME/HHC: Patient has shower chair, hospital bed, jennifer, walker, wheelchairs, nebuilzer, [facility] Patient has CGM but states she needs standard glucometer as back. Script received and provided to patient. Patient attends HD at [facility] on MWF at 1000. Patient has been to [facility] in the past. [facility]. Disposition Plan: Patient to discharge home with community resources, family support, and follow-up plans in place. Nita SORIA, RN, CM
--- NOTE | 2023-10-25 14:44 | PCM.DC.SUM ---
Providers Date of Admission: 10/24/23 Date of Discharge: 10/25/23 Primary Care Physician: Dr. Sarah Peters, DO Consultations 10/23/23 18:26 Consult: Nephrology Routine Consulting Provider: José Miguel Staples Reason for Consult: ESRD-Needs HD EMERGENT Consult: No MD Notified: Yes Date Notified: 10/23/23 Time Notified: 18:32 Method of Notification: Answering Service Reason For Visit: HTN URGENCY/MISSED HD/L PLEURAL EFFUSION Diagnosis Discharge Diagnosis (1) End-stage renal disease (ESRD): Status: Acute Code(s): N18.6 - End stage renal disease Plan Patient is a 48-year-old female who presented to [facility] ED on 10/23/2023 with worsening bilateral flank pain and shortness of breath after missed HD sessions. 1. Acute hypertensive urgency ? Following missed dialysis. Patient blood pressure did improve with dialysis sessions and resumption of home medications. Patient was counseled on the need to be compliant with both her dialysis as well as her home meds 2. ESRD on HD with missed HD sessions, medication nonadherence ? Nephrology consulted dialysis orders 3. Left-sided pleural effusion ? CTA chest on admit showed trace right pleural effusion, small to moderate left pleural effusion. Stable on room air but reports shortness of breath on exertion. Scheduled to undergo ultrasound-guided thoracocentesis on 10/25/2023 ? 10/25/2023; patient ultrasound-guided thoracocentesis was a dry tap not enough fluid to tap 4. 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 Patient blood glucose markedly elevated. Did resume home regimen 5. Dyslipidemia -Patient is on statin therapy, continued at home dose 6. GERD ? On PPI 7. Class III obesity with BMI of 46 ? Weight loss advised 8. Mild intermittent asthma ? Bronchodilator treatment as needed 9. Dyslipidemia -Patient is on statin therapy, continued at home dose 10. Nocturnal hypoxia ? Patient is on home Venturi mask 11. Anemia - Secondary to chronic disorder monitoring H&H and transfuse if patient becomes symptomatic or hemoglobin falls below 7 12. History of previous CVA ? Patient is on antiplatelet therapy with Lamictal 13. Chronic pain syndrome patient is on [place] 14. Mood disorder ? Patient is on Lamictal 15. DVT prophylaxis ? SC heparin Time spent in the patient's overall evaluation,decision-making process, review of diagnostic data, adjustment of management, discussion with other providers, nursing nursing and ancillary staff involved in patient's care documentation, 50 Minutes Medications at Discharge Home Medications aspirin 81 mg tablet,delayed release 81 mg PO DAILY HEART HEALTH 06/23/22 bumetanide 1 mg tablet 1 mg PO BID FLUID 06/23/22 cetirizine 10 mg tablet 10 mg PO DAILY ALLERGIES 06/23/22 losartan 50 mg tablet 100 mg PO DAILY BLOOD PRESSURE 06/23/22 pantoprazole 40 mg tablet,delayed release 40 mg PO DAILY ACID REFLUX 06/23/22 tamsulosin 0.4 mg capsule 0.4 mg PO QHS BLADDER 06/23/22 promethazine 25 mg tablet 25 mg PO Q6H PRN NAUSEA/VOMITING 09/01/22 atorvastatin 40 mg tablet 40 mg PO QHS cholesterol #30 tabs 09/04/22 albuterol sulfate 2.5 mg/3 mL (0.083 %) solution for nebulization 2.5 mg inhalation Q4H PRN SOB 01/07/23 sucroferric oxyhydroxide 500 mg chewable tablet (Velphoro) 500 mg PO TID dialysis 01/07/23 cyclobenzaprine 10 mg tablet 10 mg PO TID PRN PRN Breakthrough Pain (>4/10) 7 days #21 tabs 01/22/23 gabapentin 100 mg capsule 300 mg (3 x 100 mg) PO QHS NERVE PAIN #21 caps 01/22/23 flash glucose sensor (FreeStyle Gissell 2 Sensor kit) #6 ea 03/16/23 hydrocodone 7.5 mg-acetaminophen 325 mg tablet 1 tab PO Q6H PRN pain 3 days #12 tabs 04/06/23 insulin detemir U-100 100 unit/mL (3 mL) subcutaneous pen 26 unit (0.26 mL) subcut QHS DIABETES #30 mL 08/04/23 pen needle, diabetic 32 gauge x 32 (BD Ultra-Fine Laura Pen Needle) #400 ea 08/04/23 acetaminophen 500 mg tablet 1,000 mg PO Q6H PRN pain 08/13/23 dicyclomine 10 mg capsule 10 mg PO BID stomach 08/13/23 insulin aspart U-100 100 unit/mL (3 mL) subcutaneous pen (Novolog FlexPen U-100 Insulin aspart) 15 unit subcut TID DIABETES 08/13/23 vitamin B complex-vitamin C-folic acid 0.8 mg tablet (Nephro-Chris) 1 tab PO DAILY supplement 08/13/23 lamotrigine 25 mg chewable dispersible tablet 50 mg (2 x 25 mg) PO DAILY #60 ea 08/14/23 pantoprazole 40 mg tablet,delayed release 40 mg PO DAILY reflux #30 tabs 08/14/23 sennosides 8.6 mg-docusate sodium 50 mg tablet (Stool Softener-Stimulant Laxative) 2 tab PO DAILY stool softner #0 tabs 08/14/23 sucralfate 1 gram tablet 1 g PO TID@0700,1100,1600 ulcers #90 tabs 08/14/23 Hospital Course Summary of Care Provided Minutes Spent on Discharge: 50 Physical Exam Narrative GENERAL: cooperative HEENT: Atraumatic; normocephalic EYES; Anicteric, Normal Conjunctiva NECK; supple, normal thyroid, RESPIRATORY: Diminished to auscultation CARDIOVASCULAR: Regular S1 S2, GI: soft, normoactive bowel sounds, : No Renal angle tenderness; EXTREMITIES: No edema, no clubbing, MUSCULOSKELETAL: no muscle wasting NEURO: Awake; no lateralizing signs. SKIN: No Rash PSYCH; Flat affect Weight / BMI Weight Weight: 130 kg Body Mass Index (BMI) 44.9 ABG / Lab / Microbiology Data 10/24/23 11:20 10/24/23 04:40 Laboratory: Laboratory Results - last 24 hr 10/24/23 15:08: POC Glucose 109 H 10/24/23 16:50: POC Glucose 116 H 10/24/23 21:32: POC Glucose 193 H 10/25/23 04:05: Total Bilirubin 0.30, Direct Bilirubin 0.10, AST 13 L, ALT 16, Alkaline Phosphatase 91, Lactate Dehydrogenase 232, Total Protein 5.8 L, Albumin 2.3 L, Globulin 3.5 10/25/23 08:20: POC Glucose 103 10/25/23 11:48: POC Glucose 159 H D/C Instructions Discharge Diet: 1800 Calorie Control Diet and Renal Diet Discharge Activity: Return to Normal Activity Call your doctor if you observe: Fever of 101 or Higher, Shortness of breath, Fainting spells and Chest pain Meaningful Use Info Meaningful Use Diagnoses (Choose all that apply): None applicable Discharge Plan Admission Admit Date/Time: 10/24/23 11:23 Attending Provider: Vincenzo Barcenas Primary Care Provider: Sarah Peters Consulting Providers: José Miguel Staples; Viry Starr; Osman Sanchez Discharge Orders/Prescriptions Prescriptions: Continued aspirin 81 mg tablet,delayed release (DR/EC) 81 mg PO DAILY cetirizine 10 mg tablet 10 mg PO DAILY pantoprazole 40 mg tablet,delayed release (DR/EC) 40 mg PO DAILY bumetanide 1 mg tablet 1 mg PO BID losartan 50 mg tablet 100 mg PO DAILY tamsulosin 0.4 mg capsule 0.4 mg PO QHS promethazine 25 mg tablet 25 mg PO Q6H PRN (Reason: NAUSEA/VOMITING) atorvastatin 40 mg Tablet 40 mg PO QHS Qty: 30 1RF albuterol sulfate 2.5 mg /3 mL (0.083 %) Solution For Nebulization 2.5 mg INHALATION Q4H PRN (Reason: SOB) Velphoro 500 mg Tablet,Chewable 500 mg PO TID cyclobenzaprine 10 mg Tablet 10 mg PO TID PRN PRN (Reason: Breakthrough Pain (>4/10)) 7 Days Qty: 21 0RF gabapentin 100 mg capsule 300 mg PO QHS Qty: 21 0RF hydrocodone-acetaminophen 7.5-325 mg tablet 1 tab PO Q6H PRN (Reason: pain) 3 Days Qty: 12 0RF Nephro-Chris 0.8 mg tablet 1 tab PO DAILY dicyclomine 10 mg capsule 10 mg PO BID acetaminophen 500 mg Tablet 1,000 mg PO Q6H PRN (Reason: pain) insulin aspart U-100 [Novolog FlexPen U-100 Insulin] 100 unit/mL (3 mL) insulin pen 15 unit subcut TID sennosides-docusate sodium [Stool Softener-Stimulant Laxat] 8.6-50 mg Tablet 2 tab PO DAILY Qty: 0 0RF lamotrigine 25 mg Tablet, Chewable Dispersible 50 mg PO DAILY Qty: 60 0RF pantoprazole 40 mg Tablet,Delayed Release (Dr/Ec) 40 mg PO DAILY Qty: 30 0RF sucralfate 1 gram Tablet 1 g PO TID@0700,1100,1600 Qty: 90 0RF (DME) FreeStyle Gissell 2 Sensor Kit See Rx Instructions .Route Qty: 6 1RF Rx Instructions: 1 sensor q 14 days insulin detemir U-100 100 unit/mL (3 mL) insulin pen 26 unit subcut QHS Qty: 30 0RF (DME) pen needle, diabetic [BD Ultra-Fine Laura Pen Needle] 32 gauge x 5/32 needle See Rx Instructions .ROUTE .MEDSUPPLY Qty: 400 3RF Rx Instructions: 4 times daily Discontinued hydrocodone-acetaminophen 7.5-325 mg tablet 1 tab PO Q6H PRN (Reason: pain) 3 Days Qty: 12 0RF dicyclomine 10 mg Capsule 10 mg PO BID Qty: 60 0RF Referrals / Follow Up: Sarah Peters DO [Primary Care Provider] - Within 2 Weeks Disposition Disposition (needs filled in before D/C Order can be placed): Home, Self Care Charges/Coding Visit Charges Inpatient E&M: 86034 Disch Hosp >30min
--- NOTE | 2023-10-25 15:08 | CASEMGMT ---
SW spoke with patient this am regarding her transportation issues. Patient said her car broke down and she has no transportation. Patient said she has spoken to [facility] and they won't take her to dialysis. Patient lives in a home with 16 other people. Patient said there is another family member in the home that has a vehicle, but They tend to take care of themselves. SW did provide patient with a community resources list for [facility] which included transportation. Patient also had mentioned she, her daughter, and her daughter's fiance are looking for a different place to live. SW provided patient with a list of available rentals from [employer]. Patient will also need transportation home. MAXWELL checked with [facility] van and they do not have any availability today. MAXWELL set up transport with [facility] via wheelchair van for 4:30p. MAXWELL notified patient. Lacey NUNEZ
== END 2023-10-25 17:00 | disposition home or self-care (01) | DRG 304 ==
LOC: ED 16:15 → PCU 16:24
PROVIDERS: Hospitalist; Internal Medicine; Admitting Provider Internal Medicine; Emergency Provider Emergency Medicine; PCP Family Medicine; Visit Provider Internal Medicine
DX: I16.0 Hypertensive urgency (principal); N18.6 End stage renal disease; J90 Pleural effusion, not elsewhere classified; K92.0 Hematemesis; Z68.42 Body mass index [BMI] 45.0-49.9, adult; D63.1 Anemia in chronic kidney disease; E11.22 Type 2 diabetes mellitus with diabetic chronic kidney disease; F39 Unspecified mood [affective] disorder; I12.0 Hypertensive chronic kidney disease with stage 5 chronic kidney disease or end stage renal disease; E11.65 Type 2 diabetes mellitus with hyperglycemia; E66.01 Morbid (severe) obesity due to excess calories; E11.43 Type 2 diabetes mellitus with diabetic autonomic (poly)neuropathy; Z79.4 Long term (current) use of insulin; J45.20 Mild intermittent asthma, uncomplicated; K31.84 Gastroparesis; K21.9 Gastro-esophageal reflux disease without esophagitis; M79.7 Fibromyalgia; E78.5 Hyperlipidemia, unspecified; G47.30 Sleep apnea, unspecified; Z79.82 Long term (current) use of aspirin; Z86.73 Personal history of transient ischemic attack (TIA), and cerebral infarction without residual deficits; Z87.891 Personal history of nicotine dependence; Z91.199 Patient's noncompliance with other medical treatment and regimen due to unspecified reason; Z82.3 Family history of stroke; Z91.158 Patient's noncompliance with renal dialysis for other reason; Z79.2 Long term (current) use of antibiotics; G89.4 Chronic pain syndrome
CPT/HCPCS: 36415; 71275; 74174; 76604; 80048; 80053; 80076; 82009; 82803; 82962; 83036; 83615; 83690; 83735; 84100; 84443; 84484; 85018; 85025; 90937; 93005; 94668; 97162; 97166; 97802; 99252; 99284; J7030; J7040; Q9967; A4216; G0257; G0463

== ENCOUNTER 2024-01-12 07:54 | Day surgery (SDC) | payer MEDICARE, MEDICAID, SELFPAY ==
[2024-01-11 07:59] VITALS: BMI 47.2
[2024-01-12 08:10] LABS: Hematocrit 36.3 % (37-47); Hemoglobin 12.8 g/dL (12.0-15.0); Mean Corp Hgb Conc 35.3 g/dL (32-36); Mean Platelet Vol. 9.4 fl (6.2-12.0); Platelet Count 233 K/mm3 (150-450); RBC Distribution Width CV 12.2 % (11.6-14.6); RBC Distribution Width SD 37.6 fl (35.1-43.9); Red Blood Count 4.27 M/mm3 (4.2-5.4); White Blood Count 6.1 K/mm3 (4.4-11.0)
[2024-01-12 08:25] LABS: Anion Gap 8 (5-15); BUN 49 mg/dL (7-18); BUN/Creat Ratio 8.6 RATIO (10-20); Calcium,Total 8.9 mg/dL (8.5-10.1); Chloride 99 mmol/L (98-107); Creatinine, Serum 5.67 mg/dL (0.55-1.02); EST Glomerular Filtration Rate 9 mL/min (>60); Est Glom Filt Rate - Afr Amer 10 mL/min (>60); Estimated Creatinine Clearance 17.77 ml/min; Glucose 452 mg/dL (74-106); Potassium 4.5 mmol/L (3.5-5.1); Sodium Level 130 mmol/L (136-145)
--- NOTE | 2024-01-12 11:51 | OP.PCM_ITS ---
Report of Operation Date of Procedure: 01/12/24 Pre-Operative Diagnosis: fistula stenosis Post-Operative Diagnosis: same; left innominate vein compression Surgery/Procedure Performed:: fistulagram IVUS IVC, SVC, left innominate, axillary-subclavian, cephalic PORTER BAGGAGE/stent left innominate vein Surgeon: Gregory Cooper Type of Anesthesia: Local and Sedation,Conscious Estimated Blood Loss (mL): 10 Description of Procedure: HPI: Patient is a 48-year-old female with end-stage renal disease and a left arm AV fistula. She has had fairly abrupt onset of left upper extremity pain and edema as well as high pressure alarms with dialysis and prolonged bleeding times. She presents now for fistulogram with possible intervention. Description of procedure: Upon obtaining informed consent and verification correct patient procedure site patient was taken to the [facility] where she was positioned prepped and draped in usual sterile fashion. Time was performed consultation was administered with Versed and fentanyl. Skin overlying the fistula was anesthetized 1% lidocaine the vessel accessed under ultrasound guidance with a micropuncture needle wire. This then exchanged for micropuncture sheath routine injection fistulogram and venous outflow venogram was performed. This revealed total obstruction of the innominate vein with multiple collateral vessels emptying towards the neck and inferior aspect of the thorax. Of note the lung tapia on the left were severely diminished with what appeared to be fairly significant amount of loss of lung volume with surrounding radiopaque substance whether fluid or solid. Ultimately there was emptying of the left upper extremity contrast into the contralateral innominate vein and superior vena cava. Through the micropuncture sheath a glide advantage wire was advanced and the micropuncture was exchanged out for a 9 Arabic sheath. Using the glide advantage wire and angled catheter we were able to navigate across the innominate vein obstruction advance the wire into the superior vena cava and ultimately into the inferior vena cava. The patient was in heparinized allowed circulate for 3 minutes. Intravascular shunt probe was advanced over the wire and recorded pullback performed of the IVC, SVC, left innominate vein, left axillary subclavian vein, left cephalic vein. This revealed 74% compression of the left innominate vein between the sternum and the arch vessels of the aorta. There is return to normal caliber of the innominate just prior to confluence with the contralateral innominate vein into the superior vena cava. The superior vena cava was normal with no significant compression or obstruction. The left axillary subclavian vein was normal in caliber with no obstruction or stenosis. The innominate vein to the left of the compression was fairly normal in caliber. Of note there was no internal jugular vein on the left side noted either on venogram or on IVUS. Review of prior CT scan suggest this likely was chronically occluded. It was felt that this compression was the source of her fistula outflow compromise and her new symptoms. Intravascular ultrasound was used to anaid the area of compression and obtain length measurements and diameter measurements were obtained from the IVUS recording. A [employer] 16 x 60 self-expanding stent was then brought in field prep for advanced research programs director instructions. A 14 x 40 [employer] [place] angioplasty balloon was then advanced in the area predilated to nominal and then deflated withdrawn. The Wallstent was then advanced in position and deployed. This was then postdilated with the same 14 x 40 angioplasty balloon. Initially the stent was in satisfactory positioning with what appeared to be no significant intrusion into the superior vena cava and adequate coverage of the compressed segment. However unfortunately during ballooning of the stent foreshortened and there was no longer adequate treatment of the compressed segment. Intravascular shunt probe was then readvanced and confirmed that there was continued compression between the stented segment and the superior vena cava confluence. A second 16 x 60 [employer] Wallstent was then advanced in position and deployed. This was then again postdilated first with a 14 x 40 followed by 16 x 40 [place] balloon. Repeat venogram confirmed satisfactory stent placement with brisk contrast transit and some minimal coverage of the right innominate ostia. Intravascular sound probe was then readvanced and recorded pullback performed which confirmed that there was approximately 50% coverage of the ostia of the right innominate vein with stent into the superior vena cava which was felt to be an acceptable result. There was satisfactory resolution of the compression with now less than 50% compression. There was good wall to stent apposition throughout. Wires and catheters then withdrawn and a nylon stitch placed at the skin which was secured as the sheath was then removed with manual pressure held followed by satisfactory stasis. Patient was then taken recovery and plan to discharge to home.
== END 2024-01-12 13:20 | disposition home or self-care (01) ==
PROVIDERS: PCP Family Medicine; Referring Provider Surgery Trauma Surgery; Visit Provider Surgery Trauma Surgery
DX: I77.0 Arteriovenous fistula, acquired (principal); N18.6 End stage renal disease; I12.0 Hypertensive chronic kidney disease with stage 5 chronic kidney disease or end stage renal disease; Z79.4 Long term (current) use of insulin; E11.22 Type 2 diabetes mellitus with diabetic chronic kidney disease; R60.9 Edema, unspecified; I87.1 Compression of vein; Z87.891 Personal history of nicotine dependence; Z99.81 Dependence on supplemental oxygen
CPT/HCPCS: 36415; 36901; 36907; 37252; 37253; 76937; 80048; 85027; 99152; 99153; C1725; C1753; C1769; C1876; C1894; J7040; Q9967

== ENCOUNTER 2024-02-07 11:53 | Inpatient (IN) | payer MEDICARE, MEDICAID, SELFPAY ==
[2024-02-07] VITALS (10 sets, daily range): BP systolic 140–226; BP diastolic 89–127; PULSE 73–92; RESP 16–18; TEMP 36–36.6; O2SAT 95–98; BMI 40.9
[2024-02-07 12:32] LABS: Absolute Lymphocyte Count 1.75 X10^3/uL (0.83-4.51); Absolute Neutrophil Count 4.2 X10^3/uL (2.0-7.7); Basophil# 0.08 X10^3/uL; Basophil% 1.2 % (0-1); Hematocrit 33.1 % (37-47); Hemoglobin 10.9 g/dL (12.0-15.0); Lymphocyte # 1.75 X10^3/ul (0.83-4.51); Lymphocyte % 26.6 % (19-41); Mean Corp Hgb Conc 32.9 g/dL (32-36); Mean Corpuscular Hgb 28.8 pg (27.0-32.0); Mean Corpuscular Volume 87.6 fL (81-99); Mean Platelet Vol. 9.5 fl (6.2-12.0); Monocyte# 0.32 X10^3/uL; Monocyte% 4.9 % (0-10); NRBC Flagged by Analyzer 0 % (0-5); Neutrophil # 4.17 X10^3/uL (2.7-7.7); Neutrophil % 63.5 % (47-70); Platelet Count 275 K/mm3 (150-450); RBC Distribution Width CV 13.5 % (11.6-14.6); RBC Distribution Width SD 43.2 fl (35.1-43.9); Red Blood Count 3.78 M/mm3 (4.2-5.4); White Blood Count 6.6 K/mm3 (4.4-11.0)
--- NOTE | 2024-02-07 12:56 | CT_ITS ---
STUDY: CT BRAIN WITHOUT CONTRAST REASON FOR EXAM: Female, 48 years old. 3 day history of right-sided headaches. RADIATION DOSAGE (If Supplied By Facility): CTDIvol = ( 47.06 ) mGy, DLP = ( 855.03 ) mGycm TECHNIQUE: Transaxial CT imaging of the brain was performed without administration of intravenous contrast material. Individualized dose optimization techniques were used for this CT. COMPARISON: No relevant priors. FINDINGS: Normal soft tissue structures. Normal calvarium. Normal size ventricles and extra-axial spaces for the patient''s age. Normal white matter tracts of the cerebral hemispheres. Normal basal ganglia and thalami. Normal brainstem. Normal cerebellum. There is no intracranial hemorrhage. There are no findings of an acute ischemic infarction. Partial opacification of a small right frontal sinus. CT/Brain/Head without Contrast IMPRESSION: Normal unenhanced CT scan of the brain. Partial opacification of a small right frontal sinus. Electronically Signed: Vaughn Alves MD at 14:06 EDT ,
--- NOTE | 2024-02-07 12:56 | CT_ITS ---
STUDY: CT ABDOMEN AND PELVIS WITHOUT CONTRAST REASON FOR EXAM: Female, 48 years old. Right flank pain. History of chronic renal disease. Dialysis. RADIATION DOSAGE (If Supplied By Facility): CTDIvol = ( 22.48 ) mGy, DLP = ( 1207.48 ) mGycm TECHNIQUE: Transaxial images were obtained from the dome of the diaphragm to the symphysis pubis without oral contrast, and without intravenous contrast. Sagittal and coronal images were reconstructed. Individualized dose optimization techniques were used for this CT. COMPARISON: Comparison is made with prior study August 21, 2023. FINDINGS: Left pleural effusion with left basilar atelectasis. The visualized portions of the heart are within normal limits. Normal liver. There are surgical clips in the gallbladder fossa consistent with a prior cholecystectomy. There is mild splenomegaly. There is diffuse atrophy of the pancreas. Normal bilateral adrenal glands. Normal right kidney. Normal left kidney. Normal visualized stomach. Normal small intestine. Normal colon. The appendix is visualized and appears normal. Normal abdominal aorta. Atherosclerotic calcification of the splenic artery. Normal inferior vena cava. There is a small retroperitoneal lymphadenopathy with enlarged nodes no greater than 10mm in the short axis diameter. Gas is seen within the urinary bladder worse on the right side of midline. There is evidence of bladder wall thickening. Emphysematous cystitis should BE ruled out. There is a small umbilical hernia containing fat. Normal osseous structures. CT/Abdomen/Pelvis without Cont IMPRESSION: Findings suggestive of emphysematous cystitis. Clinical correlation is recommended. Large left pleural effusion with left basilar atelectasis. Status post cholecystectomy. Electronically Signed: Vaughn Alves MD at 14:14 EDT ,
[2024-02-07 12:57] LABS: Anion Gap 9 (5-15); BUN 31 mg/dL (7-18); BUN/Creat Ratio 5.1 RATIO (10-20); Calcium,Total 8.8 mg/dL (8.5-10.1); Chloride 102 mmol/L (98-107); Creatinine, Serum 6.05 mg/dL (0.55-1.02); EST Glomerular Filtration Rate 8 mL/min (>60); Est Glom Filt Rate - Afr Amer 10 mL/min (>60); Glucose 557 mg/dL (74-106); Potassium 4.4 mmol/L (3.5-5.1); Sodium Level 134 mmol/L (136-145)
--- NOTE | 2024-02-07 13:00 | EX.ED.VIS.HA ---
HPI History of Present Illness Chief Complaint: Headache Narrative Narrative: 48-year-old female presenting with multiple complaints. She has a history of headaches although she does not states she has a history of migraines that she has had a right-sided headache for few days. Denies light or sound sensitivity. Patient denies any trauma. Patient states that she had pain in her head previously when she had a stroke. She also has presented with this symptom before. She does not have any facial droop or slurred speech. She has had some debility from previous stroke but nothing new. Patient also states last week she had some diarrhea. She has a history of gastroparesis and while she was at dialysis on Wednesday she states she had diarrhea in her pants while she was at dialysis. She states he had some diarrhea on Wednesday as well but on Wednesday she was able to go to dialysis and she also made her dialysis appointment on Wednesday. She is supposed to be there today but missed it because she is not feeling well. She thinks she has a UTI and has burning and frequency and some right-sided flank pain. She reports that she has a history of a kidney stone 1 time in the past. Patient also feels like she has water in her lungs and feels that she is little short of breath but denies any chest pain. Patient states she only walks about 10 feet at the most but she is not able to do this over the last several days. She reports that she does not take her insulin at night because it drops her blood sugar and she gets symptomatic of it. She also does not eat very much so she does not feel she needs her insulin. [facility] Medical History Anxiety Arthritis Asthma Fleming esophagus Blackout Bruising delivery delivered Chronic kidney disease Depression Dietary restriction Difficulty swallowing Disc disorder Easy bruising ESRD needing dialysis FH: cholecystectomy Fibromyalgia, primary Former smoker Gastric reflux High cholesterol History of CHF (congestive heart failure) History of Clostridium difficile infection History of echocardiogram History of edema History of stress test History of ulceration Hypertension Hypertension Hypertensive urgency Injury of head and neck Insulin dependent diabetes mellitus Left foot amputee (~2019) Left hand pain Loss of hearing Low iron LUE weakness Migraine headache On home oxygen therapy Seasonal allergies Shortness of breath on exertion Stroke (~2021) Syncope Thyroid disease Transitioned from acute care to home health care Uses wheelchair Vision impairment Walker as ambulation aid Wears glasses Home Medications aspirin 81 mg tablet,delayed release 81 mg PO DAILY HEART HEALTH 06/23/22 [History Last Taken 09/05/23] bumetanide 1 mg tablet 1 mg PO BID FLUID 06/23/22 [History Last Taken 09/05/23] cetirizine 10 mg tablet 10 mg PO DAILY ALLERGIES 06/23/22 [History Last Taken 09/05/23] losartan 50 mg tablet 100 mg PO DAILY BLOOD PRESSURE 06/23/22 [History Last Taken 09/05/23] pantoprazole 40 mg tablet,delayed release 40 mg PO DAILY ACID REFLUX 06/23/22 [History Last Taken 09/05/23] tamsulosin 0.4 mg capsule 0.4 mg PO QHS BLADDER 06/23/22 [History Last Taken 09/05/23] promethazine 25 mg tablet 25 mg PO Q6H PRN NAUSEA/VOMITING 09/01/22 [History Last Taken Unknown] atorvastatin 40 mg tablet 40 mg PO QHS cholesterol #30 tabs 09/04/22 [Rx Last Taken 09/05/23] albuterol sulfate 2.5 mg/3 mL (0.083 %) solution for nebulization 2.5 mg inhalation Q4H PRN SOB 01/07/23 [History Last Taken 01/19/23] sucroferric oxyhydroxide 500 mg chewable tablet (Velphoro) 500 mg PO TID dialysis 01/07/23 [History Last Taken 09/05/23] cyclobenzaprine 10 mg tablet 10 mg PO TID PRN PRN Breakthrough Pain (>4/10) 7 days #21 tabs 01/22/23 [Rx Last Taken 09/05/23] gabapentin 100 mg capsule 300 mg (3 x 100 mg) PO QHS NERVE PAIN #21 caps 01/22/23 [Rx Last Taken 09/05/23] flash glucose sensor (FreeStyle Gissell 2 Sensor kit) #6 ea 03/16/23 [Rx Last Taken Unknown] hydrocodone 7.5 mg-acetaminophen 325 mg tablet 1 tab PO Q6H PRN pain 3 days #12 tabs 04/06/23 [Rx Last Taken 09/05/23] insulin detemir U-100 100 unit/mL (3 mL) subcutaneous pen 26 unit (0.26 mL) subcut QHS DIABETES #30 mL 11/01/23 [Rx Last Taken 09/03/23] pen needle, diabetic 32 gauge x 32 (BD Ultra-Fine Laura Pen Needle) #400 ea 08/04/23 [Rx Last Taken Unknown] acetaminophen 500 mg tablet 1,000 mg PO Q6H PRN pain 08/13/23 [History Last Taken Unknown] dicyclomine 10 mg capsule 10 mg PO BID stomach 08/13/23 [History Last Taken Unknown] insulin aspart U-100 100 unit/mL (3 mL) subcutaneous pen (Novolog FlexPen U-100 Insulin aspart) 15 unit subcut TID DIABETES 08/13/23 [History Last Taken 09/05/23] vitamin B complex-vitamin C-folic acid 0.8 mg tablet (Nephro-Chris) 1 tab PO DAILY supplement 08/13/23 [History Last Taken 09/05/23] lamotrigine 25 mg chewable dispersible tablet 50 mg (2 x 25 mg) PO DAILY #60 ea 08/14/23 [Rx Last Taken 09/05/23] pantoprazole 40 mg tablet,delayed release 40 mg PO DAILY reflux #30 tabs 08/14/23 [Rx Last Taken Unknown] sennosides 8.6 mg-docusate sodium 50 mg tablet (Stool Softener-Stimulant Laxative) 2 tab PO DAILY stool softner #0 tabs 08/14/23 [Rx Last Taken Unknown] sucralfate 1 gram tablet 1 g PO TID@0700,1100,1600 ulcers #90 tabs 08/14/23 [Rx Last Taken 09/05/23] clopidogrel 75 mg tablet (Plavix) 75 mg PO .daily #90 tabs 01/12/24 [Rx Last Taken Unknown] Allergy/AdvReac Type Severity Reaction Status Date / Time lidocaine Allergy Severe Rash Verified 12/21/23 15:44 bacitracin Allergy Intermediate blisters Verified 12/21/23 15:44 hydrogen peroxide Allergy Intermediate blisters Verified 12/21/23 15:44 isopropyl alcohol Allergy Intermediate blisters Verified 12/21/23 15:44 Sulfa (Sulfonamide Allergy Intermediate Rash Verified 12/21/23 15:44 Antibiotics) Bleach (Sodium Hypochlorite) Allergy Hives Verified 12/21/23 15:44 insulin lispro Allergy HIVES, Verified 12/21/23 15:44 [From Humalog U-100 Insulin] REDNESS Latex, Natural Rubber Allergy Rash Verified 12/21/23 15:44 ondansetron [From Zofran] AdvReac Severe Constipatio Verified 12/21/23 15:44 n dicyclomine AdvReac Mild Vomiting Verified 12/21/23 15:44 metformin AdvReac Vomiting Verified 12/21/23 15:44 neomycin AdvReac HIVES, Verified 12/21/23 15:44 [From Neosporin REDNESS ([id number])] polymyxin B AdvReac HIVES, Verified 12/21/23 15:44 [From Neosporin REDNESS ([id number])] Family History Other Arthritis Asthma CVA (cerebral vascular accident) Diabetes Heart disease High cholesterol Hypertension Kidney disease Osteoporosis Seizures Surgical History H/O left knee surgery H/O right knee surgery History of arteriovenostomy for renal dialysis History of bladder surgery History of History of cholecystectomy History of foot surgery History of infusaport central venous catheter removal History of liver biopsy History of lumpectomy of right breast History of shoulder surgery History of thoracentesis Hx of tonsillectomy Social History household members: family housing: house Smoking Status: Former smoker alcohol intake: never ROS ROS ED Constitutional Constitutional ED: Denies chills, fever(s) or sweats Eyes Eyes: Denies blurry vision or change in vision ENT ENT ED: Denies ear pain or sore throat Cardiovascular Cardiovascular: Denies chest pain, palpitations or racing heartbeat Respiratory/Chest Respiratory/Chest: Reports dyspnea and dyspnea on exertion; Denies cough or sputum Gastrointestinal Gastrointestinal: Reports diarrhea, nausea, vomiting and other Details: Right flank pain ; Denies abdominal pain or constipation Genitourinary Genitourinary ED: Reports dysuria and urinary frequency; Denies hematuria Musculoskeletal Musculoskeletal: Denies arthralgias, myalgias or neck pain Integumentary Denies abscess, Abrasions or rash Neurologic Neurologic: Reports headache(s); Denies paresthesias or weakness Psychiatric Psychiatric: Denies anxiety, depression, suicidal ideation or suicidal thoughts Endocrine Endocrinology: Denies polydipsia or polyuria EXAM Physical Exam Const Vital Signs: 02/07/24 11:54 02/07/24 13:54 02/07/24 15:00 Temperature 96.8 F L Temperature Source Temporal Pulse Rate 73 76 76 Respiratory Rate 17 16 16 Blood Pressure 164/90 H 213/127 H 226/103 H Blood Pressure Mean 114 155 144 Pulse Ox 96 98 95 Oxygen Delivery Method Room Air Room Air Room Air Positive obese General Appearance ED: NAD; Negative for pallor Nutritional Appearance: obese HEENT Reports normocephalic atraumatic Eyes PERRL and EOMs intact bilaterally General Eye ED: Negative for pale conjunctiva Resp normal respiratory effort Auscultation: diminished lung sounds left throughout Cardio regular rate and regular rhythm GI non-distended Palpation: tender suprapubic Extremity normal to inspection Neuro oriented x3 and CN's II-XII intact bilaterally Sensorium / Orientation: awake and alert Psych mental status grossly normal Skin General Skin Exam: Negative for jaundice or pallor MDM MDM MDM Narrative Medical decision making narrative: Patient presenting with multiple complaints. differential does include hyperglycemia, DKA, electrolyte abnormalities, dehydration, pneumonia, CHF, pleural effusion, UTI, pyelonephritis. Patient was given oral Phenergan as she states she is allergic to Zofran, Reglan, Compazine. She was able to tolerate this. Patient was given 500 cc bolus of IV fluids. CBC was obtained and shows a normal white blood cell count 6.6. Hemoglobin is 10.9. Platelets are normal at 275. Creatinine 6.05 and expected due to end-stage renal disease on dialysis. This is about her baseline. Glucose is 557 without anion gap. BNP was elevated at 278.9. Patient is having dysuria and her's urinalysis is consistent with UTI is also evidence based on her CT that she has emphysematous cystitis. Urine was sent for culture. Patient was given Rocephin IV. As far as her shortness of breath chest x-ray my interpretation shows a large left pleural effusion. On reevaluation the patient's blood pressure has been elevated and it was 226/103 and she is been consistently high since then. She is given 10 mg of hydralazine. She states has been taking her blood pressure medication at home and states that she has to but she does not know what they are called. CT of her brain was performed because she has a headache and was hypertensive and this is negative. Patient was given 10 of subcu insulin and she will likely need more insulin upstairs as she is being admitted. Discussed with the hospitalist for admission. Impression: 1. hypertension 2. Hyperglycemia 3. Headache 4. Pleural effusion 5. End-stage renal disease on dialysis 6. UTI Lab Data Attestation: I reviewed the patient's lab results. Labs: Laboratory Results - last 24 hr 02/07/24 02/07/24 12:23 14:10 WBC 6.6 RBC 3.78 L Hgb 10.9 L Hct 33.1 L MCV 87.6 MCH 28.8 MCHC 32.9 RDW Std Deviation 43.2 RDW Coeff of Juan 13.5 Plt Count 275 MPV 9.5 Immature Gran % (Auto) 0.800 Neut % (Auto) 63.5 Lymph % (Auto) 26.6 [place] % (Auto) 4.9 Eos % (Auto) 3.0 Baso % (Auto) 1.2 H Absolute Neuts (auto) 4.2 Absolute Lymphs (auto) 1.75 Nucleated RBC % 0 Sodium 134 L Potassium 4.4 Chloride 102 Carbon Dioxide 23.0 Anion Gap 9 BUN 31 H Creatinine 6.05 H Est GFR (MDRD) Af Amer 10 L Est GFR (MDRD) Non-Af 8 L BUN/Creatinine Ratio 5.1 L Glucose 557 H* Calcium 8.8 B-Natriuretic Peptide 278.9 H Urine Color Yellow Urine Clarity Sl. Cloudy Urine pH 7.0 Ur Specific [place] 1.010 Urine Protein 500 H Urine Glucose (UA) 1000 H Urine Ketones 5 H Urine Occult Blood 250 H Urine Nitrite Negative Urine Bilirubin Negative Urine Urobilinogen Normal Ur Leukocyte Esterase 100 H Urine RBC 25-50 SEEN Urine WBC 25-50 SEEN Ur Squamous Epith Cells 0-5 SEEN Urine Bacteria 3+ Urine Mucus 0 SEEN Radiography Diagnostic Testing: Clinical Impression(s) from Imaging Studies Abdomen/Pelvis CT 02/07/24 12:56 IMPRESSION: Findings suggestive of emphysematous cystitis. Clinical correlation is recommended. Large left pleural effusion with left basilar atelectasis. Status post cholecystectomy. Electronically Signed: Vaughn Alves MD at 14:14 EDT , Brain CT 02/07/24 12:56 IMPRESSION: Normal unenhanced CT scan of the brain. Partial opacification of a small right frontal sinus. Electronically Signed: Vaughn Alves MD at 14:06 EDT , Chest X-Ray 02/07/24 13:40 IMPRESSION: Large left pleural effusion with underlying left volume loss. Electronically Signed: Vaughn Alves MD at 13:58 EDT , Discharge Plan Triage Chief Complaint: Headache ED Provider: Michelet Garzon Dx/Rx/DC Orders Primary Care Provider: Sarah Peters
--- NOTE | 2024-02-07 13:40 | RAD_ITS ---
STUDY: X-RAY CHEST REASON FOR EXAM: Female, 48 years old. Chest pain TECHNIQUE: Single AP portable view of the chest. COMPARISON: Comparison is made with prior study dated September 06, 2023. FINDINGS: EKG electrodes are seen. Large left pleural effusion with underlying volume loss. Normal size heart. Normal mediastinum and nahun. Normal visualized pulmonary arteries. Normal visualized aortic arch and descending thoracic aorta. Normal visualized thoracic spine. Normal visualized ribs, clavicles, and shoulders. There is no demonstrated abnormality of the visualized soft tissue structures of the upper abdomen. RAD/Chest 1 View (Portable) IMPRESSION: Large left pleural effusion with underlying left volume loss. Electronically Signed: Vaughn Alves MD at 13:58 EDT ,
[2024-02-07 14:17] LABS: BNP,B-Type NATRIURETIC PEPTIDE 278.9 pg/mL (0-100)
[2024-02-07 14:17] LABS: Mucous, Urine 0 SEEN /hpf (<or=2+)
[2024-02-07] MEDS: 0.9% Normal Saline (500mL Bag) 500 ML 999 ML IV (14:18)
[2024-02-07] MEDS: proMETHazine 25 MG Tablet PO ×2 (14:29→22:35)
[2024-02-07 14:34] LABS: Color, Urine Yellow (Yellow); Glucose, Dipstick 1000 mg/dl (Normal); Ketone-Dipstick 5 mg/dl (Negative); Leukocyte Esterase-Dipstick 100 /ul (Negative); Nitrite-Dipstick Negative (Negative); Occult Blood-Urine 250 /ul (Negative); Protein-Dipstick 500 mg/dl (Negative); Urine Bilirubin Dipstick Negative (Negative); Urine Clarity Sl. Cloudy (Clear); Urine Urobilinogen Normal (Normal)
[2024-02-07 14:52] LABS: Bacteria 3+ /hpf (None Seen); Red Blood Cells-Urine 25-50 SEEN /hpf (0-5); Squamous Epithelial Cells - UA 0-5 SEEN /hpf (5-10); White Blood Cells 25-50 SEEN /hpf (0-5)
--- NOTE | 2024-02-07 15:08 | HP.PCM_ITS ---
HPI - General General Date of Admission: 02/07/24 Date of Service: 02/07/24 Chief Complaint: headache HPI Narrative XOCHITL CHERRY, is a 48 F with an extensive PMH as outlined who presents via the ED on 02/07/2024 with a complaint of headache. The headache is chronic. She denied any dizziness, lightheadedness, palpitations, nausea, vomiting or any other symptoms. She has been noncompliant with her insulin because she says she cant eat in the mornings, take the insulin and go for dialysis, and also doesnt want her blood sugars to bottom out in the night. She also admitted to urinary symptoms like dysuria, and also complained of shortness of breath, which worsened with exertion. she said she had diarrhea and also missed her last di alysis session. Vitals in the ED were 213/127, SD of 76, RR of 16 and she was saturating at 98% on room air. CBC showed Hb of 10.9, wbc of 6.6 and platelets of 275. Chemistry showed sodium of 134 with creatinine of 6.05 and potassium of 4.4. Blood glucose was 557 and BNP was 278.9. Bicarb was 23 and anion gap was 9. Urinalysis showed 3+ bacteria with 100 leukocyte esterase per high-power field. CT abdomen and pelvis showed emphysematous cystitis with large left pleural effusion with left basilar atelectasis. Chest x-ray also showed a large left pleural effusion with underlying left volume loss and CT of the brain showed no acute intracranial pathology. She has been admitted to be managed for large left pleural effusion, emphysematous cystitis and headache. Nephrology was consulted for dialysis/was prescribed today. [facility] Medical History (Updated 02/07/24 @ 16:48 by Jenny Cote) Anxiety Arthritis Asthma Fleming esophagus Blackout Bruising delivery delivered Chronic kidney disease Congestive heart failure (CHF) Depression Diabetes Dialysis patient Dietary restriction Difficulty swallowing Disc disorder DVT (deep venous thrombosis) Easy bruising ESRD needing dialysis FH: cholecystectomy Fibromyalgia, primary Former smoker Gastric reflux Gastroparesis High cholesterol History of CHF (congestive heart failure) History of Clostridium difficile infection History of echocardiogram History of edema History of stress test History of ulceration Hypertension Hypertension Hypertensive urgency Injury of head and neck Insulin dependent diabetes mellitus Kidney disease Left foot amputee (~2019) Left hand pain Loss of hearing Low iron LUE weakness Migraine headache On home oxygen therapy Pancreatitis Seasonal allergies Shortness of breath on exertion Stroke (~2021) Syncope Thyroid disease TIA (transient ischemic attack) Transitioned from acute care to home health care Uses wheelchair Vision impairment Walker as ambulation aid Wears glasses Home Medications aspirin 81 mg tablet,delayed release 81 mg PO DAILY HEART HEALTH 06/23/22 [History Last Taken 09/05/23] bumetanide 1 mg tablet 1 mg PO BID FLUID 06/23/22 [History Last Taken 09/05/23] cetirizine 10 mg tablet 10 mg PO DAILY ALLERGIES 06/23/22 [History Last Taken 09/05/23] pantoprazole 40 mg tablet,delayed release 40 mg PO DAILY ACID REFLUX 06/23/22 [History Last Taken 09/05/23] tamsulosin 0.4 mg capsule 0.4 mg PO QHS BLADDER 06/23/22 [History Last Taken 09/05/23] promethazine 25 mg tablet 25 mg PO Q8H PRN NAUSEA/VOMITING 09/01/22 [History Last Taken Unknown] atorvastatin 40 mg tablet 40 mg PO QHS cholesterol #30 tabs 09/04/22 [Rx Last Taken 09/05/23] albuterol sulfate 2.5 mg/3 mL (0.083 %) solution for nebulization 2.5 mg inhalation Q4H PRN SOB 01/07/23 [History Last Taken 01/19/23] gabapentin 100 mg capsule 300 mg (3 x 100 mg) PO QHS NERVE PAIN #21 caps 01/22/23 [Rx Last Taken 09/05/23] flash glucose sensor (FreeStyle Gissell 2 Sensor kit) #6 ea 03/16/23 [Rx Last Taken Unknown] hydrocodone 7.5 mg-acetaminophen 325 mg tablet 1 tab PO Q6H PRN pain 3 days #12 tabs 04/06/23 [Rx Last Taken 09/05/23] insulin detemir U-100 100 unit/mL (3 mL) subcutaneous pen 26 unit (0.26 mL) subcut QHS DIABETES #30 mL 08/04/23 [Rx Last Taken 09/03/23] pen needle, diabetic 32 gauge x /32 (BD Ultra-Fine Laura Pen Needle) #400 ea 08/04/23 [Rx Last Taken Unknown] dicyclomine 10 mg capsule 10 mg PO BID stomach 08/13/23 [History Last Taken Unknown] insulin aspart U-100 100 unit/mL (3 mL) subcutaneous pen (Novolog FlexPen U-100 Insulin aspart) 6 unit subcut TID DIABETES 08/13/23 [History Last Taken 1 11/06/22] sucralfate 1 gram tablet 1 g PO TID@0700,1100,1600 ulcers #90 tabs 08/14/23 [Rx Last Taken 09/05/23] albuterol sulfate 90 mcg/actuation aerosol inhaler 2 puff inhalation Q4H PRN shortness of breath or wheezing 02/07/24 [History Last Taken Unknown] amlodipine 5 mg tablet 5 mg PO DAILY 02/07/24 [History Last Taken Unknown] clopidogrel 75 mg tablet (Plavix) 75 mg PO DAILY 02/07/24 [History Last Taken Unknown] diclofenac sodium 1 % topical gel 1 ea topical 4X/DAY 02/07/24 [History Last Taken Unknown] lamotrigine 25 mg tablet 50 mg PO DAILY 02/07/24 [History Last Taken Unknown] levothyroxine 25 mcg tablet 25 mcg PO DAILY 02/07/24 [History Last Taken Unknown] losartan 100 mg tablet 100 mg PO DAILY 02/07/24 [History Last Taken Unknown] prochlorperazine maleate 5 mg tablet 5 mg PO Q8H PRN nausea and vomiting 02/07/24 [History Last Taken Unknown] sennosides 8.6 mg tablet (senna) 17.2 mg PO DAILY 02/07/24 [History Last Taken Unknown] vitamin B complex-vitamin C-folic acid 0.8 mg tablet 1 tab PO DAILY 02/07/24 [History Last Taken Unknown] Allergy/AdvReac Type Severity Reaction Status Date / Time lidocaine Allergy Severe Rash Verified 12/21/23 15:44 bacitracin Allergy Intermediate blisters Verified 12/21/23 15:44 hydrogen peroxide Allergy Intermediate blisters Verified 12/21/23 15:44 isopropyl alcohol Allergy Intermediate blisters Verified 12/21/23 15:44 Sulfa (Sulfonamide Allergy Intermediate Rash Verified 12/21/23 15:44 Antibiotics) Bleach (Sodium Hypochlorite) Allergy Hives Verified 12/21/23 15:44 insulin lispro Allergy HIVES, Verified 12/21/23 15:44 [From Humalog U-100 Insulin] REDNESS Latex, Natural Rubber Allergy Rash Verified 12/21/23 15:44 ondansetron [From Zofran] AdvReac Severe Constipatio Verified 12/21/23 15:44 n dicyclomine AdvReac Mild Vomiting Verified 12/21/23 15:44 metformin AdvReac Vomiting Verified 12/21/23 15:44 neomycin AdvReac HIVES, Verified 12/21/23 15:44 [From Neosporin REDNESS ([id number])] polymyxin B AdvReac HIVES, Verified 12/21/23 15:44 [From Neosporin REDNESS ([id number])] Family History Other Arthritis Asthma CVA (cerebral vascular accident) Diabetes Heart disease High cholesterol Hypertension Kidney disease Osteoporosis Seizures Surgical History H/O left knee surgery H/O right knee surgery History of arteriovenostomy for renal dialysis History of bladder surgery History of History of cholecystectomy History of foot surgery History of infusaport central venous catheter removal History of liver biopsy History of lumpectomy of right breast History of shoulder surgery History of thoracentesis Hx of tonsillectomy Social History household members: family housing: house Smoking Status: Former smoker alcohol intake: never ROS Constitutional Constitutional: Reports anorexia, fatigue, malaise and weakness; Denies change in weight, chills or fever(s) Eyes Eyes: Denies change in vision ENT HEENT: Reports headache(s); Denies dysphagia, hearing loss or sore throat Cardiovascular Cardiovascular: Reports orthopnea; Denies chest pain, edema, palpitations, paroxysmal nocturnal dyspnea or syncope Respiratory/Chest Respiratory/Chest: Reports cough, shortness of breath at rest and shortness of breath with exertion; Denies wheezing Gastrointestinal Gastrointestinal: Reports nausea; Denies abdominal pain, diarrhea, dyspepsia or vomiting Genitourinary Genitourinary: Reports dysuria and urinary frequency Musculoskeletal Musculoskeletal: Denies back pain, joint pain or joint stiffness Neurologic Neurologic: Denies confusion, dizziness, focal weakness or headache(s) Endocrine Endocrinology: Denies change in body appearance Vital Signs Vital Signs Vital Signs: 02/07/24 11:54 02/07/24 13:54 Temperature 96.8 F L Temperature Source Temporal Pulse Rate 73 76 Respiratory Rate 17 16 Blood Pressure 164/90 H 213/127 H Blood Pressure Mean 114 155 Pulse Ox 96 98 Oxygen Delivery Method Room Air Room Air Physical Exam Const alert and oriented x3 Constitutional Narrative: in moderate distress due to headache General Appearance: cooperative HEENT normocephalic and head/scalp atraumatic Mouth: dry mucous membranes Eyes PERRL and EOMs intact bilaterally Neck no lymphadenopathy, supple and no JVD Lymph Lymphatic: no lymphadenopathy noted, no lymphedema noted and lymphedema Resp Resp Narrative: markedly diminished breath sounds in left upper and lower lung tapia. No wheezes or crackles. On room air. Cardio regular rate, regular rhythm, S1 normal heart sound, S2 normal heart sound and no murmurs GI normal to inspection, nondistended, normoactive bowel sounds, soft to palpation and non-tender GI Narrative: obese abdomen Extremity normal capillary refill, no clubbing, cyanosis or edema and no calf tenderness General Extremity: no tenderness to palpation of joints or extremities Skin Skin Narrative: AV fistula in LUE Neuro CN's II-XII intact bilaterally, no focal motor deficits, no sensory deficits n oted and deep tendon reflexes 2+ bilaterally Motor Exam: strength 5/5 throughout and general weakness Psych thought process normal and cooperative Appearance: appropriate Results Lab / Micro Data 02/07/24 12:23 02/07/24 12:23 Labs: Laboratory Results - last 24 hr 02/07/24 12:23: WBC 6.6, RBC 3.78 L, Hgb 10.9 L, Hct 33.1 L, MCV 87.6, MCH 28.8, MCHC 32.9, RDW Std Deviation 43.2, RDW Coeff of Juan 13.5, Plt Count 275, MPV 9.5, Immature Gran % (Auto) 0.800, Neut % (Auto) 63.5, Lymph % (Auto) 26.6, Piatt % (Auto) 4.9, Eos % (Auto) 3.0, Baso % (Auto) 1.2 H, Absolute Neuts (auto) 4.2, Absolute Lymphs (auto) 1.75, Nucleated RBC % 0, Sodium 134 L, Potassium 4.4, Chloride 102, Carbon Dioxide 23.0, Anion Gap 9, BUN 31 H, Creatinine 6.05 H, Est GFR (MDRD) Af Amer 10 L, Est GFR (MDRD) Non-Af 8 L, BUN/Creatinine Ratio 5.1 L, Glucose 557 H*, Calcium 8.8, B-Natriuretic Peptide 278.9 H 02/07/24 14:10: Urine Color Yellow, Urine Clarity Sl. Cloudy, Urine pH 7.0, Ur Specific [place] 1.010, Urine Protein 500 H, Urine Glucose (UA) 1000 H, Urine Ketones 5 H, Urine Occult Blood 250 H, Urine Nitrite Negative, Urine Bilirubin Negative, Urine Urobilinogen Normal, Ur Leukocyte Esterase 100 H, Urine RBC 25- 50 SEEN, Urine WBC 25-50 SEEN, Ur Squamous Epith Cells 0-5 SEEN, Urine Bacteria 3+, Urine Mucus 0 SEEN Imaging Radiology Impression Abdomen/Pelvis CT 02/07/24 12:56 IMPRESSION: Findings suggestive of emphysematous cystitis. Clinical correlation is recommended. Large left pleural effusion with left basilar atelectasis. Status post cholecystectomy. Electronically Signed: Vaughn Alves MD at 14:14 EDT , Brain CT 02/07/24 12:56 IMPRESSION: Normal unenhanced CT scan of the brain. Partial opacification of a small right frontal sinus. Electronically Signed: Vaughn Alves MD at 14:06 EDT , Chest X-Ray 02/07/24 13:40 IMPRESSION: Large left pleural effusion with underlying left volume loss. Electronically Signed: Vaughn Alves MD at 13:58 EDT , Assessment & Plan Assessment/Plan (1) Headache: PLAN: Plan #Hypertensive urgency * Patient admitted with a complaint of headache and found to have markedly elevated blood pressure with blood pressure initially at 213/127. As of the time she was going to the floor, her blood pressure had come down to 195 systolic. * CT of the brain showed no acute intracranial pathology. She does have headaches chronically. She does not have any focal weakness. * I think headache is likely due to her poorly controlled hypertension. * Goal is to control high blood pressure. Patient placed on IV hydralazine in the ED. Will also give p.o. clonidine and resume her BP meds. Patient also due for dialysis today which will help bring down high blood pressure. * P.o. Tylenol, p.o. oxycodone and IV morphine as needed for headache and pain * On p.o. Tylenol. Will give p.o. clonidine. Placed on IV hydralazine. * #Severe headache: As above #Left pleural effusion * Patient complained of shortness of breath which worsened with exertion. Chest x-ray showed a large left pleural effusion with underlying left volume loss. She has had recurrent pleural effusion has required thoracentesis in the past. Will order therapeutic thoracentesis for tomorrow. * Consult pulmonology * #Emphysematous cystitis: Patient complains of dysuria. She often has frequent UTIs. CAT scan showed evidence of emphysematous cystitis. Started on IV c eftriaxone. Urine cultures ordered. #Hyperglycemia in the setting of poorly controlled diabetes mellitus * Patient states she has not taken insulin in several months because she cannot eat any in the morning because of her gastroparesis and her dialysis time is also not been changed for her to be able to eat in the morning for going for dialysis. She also states that time that she took her insulin before dialysis, she had severe hypoglycemia. She does not follow-up with an physical damage appraiser as she has been fired by her physical damage appraiser office. * Blood sugar is 555. Does not have any elevated anion gap. * Cannot hydrate aggressively with IV fluids in light of ESRD. Placed on high- dose sliding scale. Checks ACHS. * Patient says she is allergic to the Humalog which is a short acting insulin we have on formulary. She says she breaks out in hives. She has refused to take the Humalog in the past and has previously brought in her NovoLog from home. However she says she does not have anybody who can bring in the NovoLog from home and so wants to take her long-acting insulin and see how she does. She is not willing to try taking the short acting Humalog insulin at all. I discussed this with pharmacy and we only have the Humalog and hospital and there is no NovoLog available/ * #Hyperlipidemia: On statin #History of CVA: On aspirin and statin #Seizure disorder: On lamotrigine DVT prophylaxis: Heparin subcu CODE STATUS: Presumed full code * Patient counseled extensively about different types of CODE STATUS including full code, DNR CCA and DNR CCA. Patient got tearful and says she is unable to make a decision about her code status now and wants some more time to think about it. Will enter code status as unverified full code for now, whilst patient takes her time to think about it. I discussed this with pateint and she was agreeable. * Total [id number] time 16 minutes. Charges/Coding Visit Charges Inpatient E&M: 49359 Init Hosp L3 Procedures Hospitalists Procedures: 81015 Advncd Care Plan 30 Min
[2024-02-07] MEDS: hydrALAZINE 20 MG/ML Vial 10 MG IV ×2 (15:30→18:51)
[2024-02-07] MEDS: Ceftriaxone 1 GM/50 ML BAG IV (15:31)
[2024-02-07 19:13] LABS: Bedside Glucose 460 mg/dL (74-106)
[2024-02-07 19:41] LABS: Troponin-I HS 33 pg/mL (3.0-54.0)
[2024-02-07 21:36] LABS: Troponin-I HS 29 pg/mL (3.0-54.0)
[2024-02-07] MEDS: Tamsulosin HCl 0.4 MG Capsule PO (22:18)
[2024-02-07] MEDS: Heparin Injection (Vial) 5,000 UNIT/ML VIAL 5000 UNIT SC (22:18)
[2024-02-07] MEDS: Bumetanide 2 MG Tablet 1 MG PO (22:18)
[2024-02-07] MEDS: Insulin Glargine-YFGN 100 UNIT/ML Pen 26 UNIT SC (22:18)
[2024-02-07] MEDS: Dicyclomine 10 MG Capsule PO (22:19)
[2024-02-07] MEDS: Atorvastatin Calcium 40 MG Tablet PO (22:19)
[2024-02-07] MEDS: Clonidine HCl 0.1 MG, Clonidine HCl 0.2 MG 0.3 MG PO (22:22)
[2024-02-07] MEDS: Gabapentin 300 MG Capsule PO (22:35)
[2024-02-08] VITALS (22 sets, daily range): BP systolic 96–252; BP diastolic 47–80; PULSE 54–76; RESP 14–18; TEMP 35.9–36.8; O2SAT 93–99; BMI 41.0; BMI 39.9
--- NOTE | 2024-02-08 | FLU_PTH ---
PATIENT: XOCHITL CHERRY LOC: [facility] U#:[id number] AGE/SX: 48/F ROOM: [facility] RE02/07/[address]: Dr. Fabiano Ortega MD : 1975 BED: 1 DIS: 02/11/2024 SPEC #: [id number] RECD: 02/08/24 13:44 STATUS: MO FONTENOT #: [id number] GIANNI: 02/08/24 00:[address]: Fabiano Ortega DEPT: CYTOLOGY RECD BY: David Tellez ENTERED: 02/09/24 07:14 SP TYPE: Fluid OTHR DR: MD Dr. Xochitl Persaud DO Dr. Nana Yaa Koram, MD Tissues: Pleural fluid, NOS Procedures: Special Stain Group II Surgery Specimen Level IV Cytospin Fluid HEADER OPERATION: Thoracentesis PRE-OP DIAGNOSIS: Pleural effusion TISSUE SUBMITTED: Thoracentesis fluid for cytology DIAGNOSIS CYTOLOGY Thoracentesis fluid for cytology (cytospin and cellblock): Negative for malignant cells. SJ/mr 02/10/24 COMMENT Clinical correlation and appropriate follow up are necessary. CYTOLOGY STUDY Slides are reviewed. CYTOLOGY GROSS Received is 85 ml of yellow cloudy fluid labeled with the patient's name and and designated per the requisition as Thoracentesis fluid. Submitted for cytology preparation including cell block. Mr 02/09/24 TC:5 CPT: 64383
[2024-02-08 00:01] LABS: Bedside Glucose 365 mg/dL (74-106)
[2024-02-08 02:07] LABS: Troponin-I HS 34 pg/mL (3.0-54.0)
[2024-02-08] MEDS: Heparin Injection (Vial) 5,000 UNIT/ML VIAL 5000 UNIT SC ×3 (06:00→22:15)
[2024-02-08] MEDS: Levothyroxine 25 MCG TABLET PO (06:00)
[2024-02-08] MEDS: Sucralfate 1 GM Tablet PO ×3 (06:00→16:19)
[2024-02-08 07:10] LABS: Bedside Glucose 87 mg/dL (74-106)
[2024-02-08 07:31] LABS: Absolute Lymphocyte Count 2.97 X10^3/uL (0.83-4.51); Absolute Neutrophil Count 3.8 X10^3/uL (2.0-7.7); Basophil# 0.08 X10^3/uL; Eosinophils% 3.9 % (0-5); Hematocrit 30.5 % (37-47); Lymphocyte # 2.97 X10^3/ul (0.83-4.51); Lymphocyte % 38.8 % (19-41); Mean Corp Hgb Conc 32.8 g/dL (32-36); Mean Corpuscular Hgb 28.7 pg (27.0-32.0); Mean Corpuscular Volume 87.6 fL (81-99); Mean Platelet Vol. 9.5 fl (6.2-12.0); Monocyte# 0.48 X10^3/uL; Monocyte% 6.3 % (0-10); NRBC Flagged by Analyzer 0 % (0-5); Neutrophil # 3.76 X10^3/uL (2.7-7.7); Neutrophil % 49.2 % (47-70); Platelet Count 253 K/mm3 (150-450); RBC Distribution Width CV 13.5 % (11.6-14.6); RBC Distribution Width SD 43.3 fl (35.1-43.9); Red Blood Count 3.48 M/mm3 (4.2-5.4); White Blood Count 7.7 K/mm3 (4.4-11.0)
[2024-02-08 08:00] LABS: Anion Gap 8 (5-15); BUN 32 mg/dL (7-18); Calcium,Total 8.7 mg/dL (8.5-10.1); Chloride 108 mmol/L (98-107); EST Glomerular Filtration Rate 7 mL/min (>60); Est Glom Filt Rate - Afr Amer 9 mL/min (>60); Estimated Creatinine Clearance 14.48 ml/min; Glucose 91 mg/dL (74-106); Sodium Level 137 mmol/L (136-145)
[2024-02-08] MEDS: 0.9% Normal Saline 1,000 ML IV.SOLN. 1000 ML OPERA.SITE (08:14)
[2024-02-08] MEDS: PureFlow B 2K Dialysis Soln 1 BAG 6 BAG PF (08:14)
--- NOTE | 2024-02-08 09:53 | NUR.TO.PHY ---
Process Environmental Technician, Dr. Staples, in room. Dialysis Coordinator discussed that pt is not tolerating much fluid removal today. Process Environmental Technician recommended stopping conventional dialysis & changing rest of today's treatment to ultrafiltration only. pt receive ultrafiltration only for duration of treatment @1hr 15 min
--- NOTE | 2024-02-08 10:23 | PCM.CONS.R ---
Assessment & Plan Assessment/Plan (1) End-stage renal disease (ESRD): PLAN: On hemodialysis. Wednesday, Wednesday, Wednesday schedule. Last dialysis was February 01. Missed several treatments. Presented with hypotension, shortness of breath. Chest x-ray with massive left-sided effusion. Pleural tap. Seen on dialysis today. We will try to convert to UF to remove fluid. Will plan for dialysis tomorrow. HPI Consult Data Date of Consult: 02/08/24 HPI Narrative Reason for Consultation: ESRD HPI Narrative: XOCHITL CHERRY, is a 48 F who presents to the hospital with headaches, shortness of breath. Nephrology on consultation in view of ESRD. ESRD on hemodialysis Wednesday, Wednesday, Wednesday. I called and spoke with dialysis unit. He does have transportation arrangements. However she has not been coming into dialysis for the last 2 weeks. Since January 24. She has been into dialysis only 2 times when transportation is available, she was not getting on with various complaints. Presented with shortness of breath, hypertension. Chest x-ray shows massive left-sided effusion. Sleeping mostly. Seen on dialysis. Blood pressure is now on the lower side on dialysis. [facility] Medical History (Updated 02/07/24 @ 16:48 by Jenny Cote) Anxiety Arthritis Asthma Fleming esophagus Blackout Bruising delivery delivered Chronic kidney disease Congestive heart failure (CHF) Depression Diabetes Dialysis patient Dietary restriction Difficulty swallowing Disc disorder DVT (deep venous thrombosis) Easy bruising ESRD needing dialysis FH: cholecystectomy Fibromyalgia, primary Former smoker Gastric reflux Gastroparesis High cholesterol History of CHF (congestive heart failure) History of Clostridium difficile infection History of echocardiogram History of edema History of stress test History of ulceration Hypertension Hypertension Hypertensive urgency Injury of head and neck Insulin dependent diabetes mellitus Kidney disease Left foot amputee (~2019) Left hand pain Loss of hearing Low iron LUE weakness Migraine headache On home oxygen therapy Pancreatitis Seasonal allergies Shortness of breath on exertion Stroke (~2021) Syncope Thyroid disease TIA (transient ischemic attack) Transitioned from acute care to home health care Uses wheelchair Vision impairment Walker as ambulation aid Wears glasses Home Medications aspirin 81 mg tablet,delayed release 81 mg PO DAILY HEART HEALTH 06/23/22 [History Last Taken 09/05/23] bumetanide 1 mg tablet 1 mg PO BID FLUID 06/23/22 [History Last Taken 09/05/23] cetirizine 10 mg tablet 10 mg PO DAILY ALLERGIES 06/23/22 [History Last Taken 09/05/23] pantoprazole 40 mg tablet,delayed release 40 mg PO DAILY ACID REFLUX 06/23/22 [History Last Taken 09/05/23] tamsulosin 0.4 mg capsule 0.4 mg PO QHS BLADDER 06/23/22 [History Last Taken 09/05/23] promethazine 25 mg tablet 25 mg PO Q8H PRN NAUSEA/VOMITING 09/01/22 [History Last Taken Unknown] atorvastatin 40 mg tablet 40 mg PO QHS cholesterol #30 tabs 09/04/22 [Rx Last Taken 09/05/23] albuterol sulfate 2.5 mg/3 mL (0.083 %) solution for nebulization 2.5 mg inhalation Q4H PRN SOB 01/07/23 [History Last Taken 01/19/23] gabapentin 100 mg capsule 300 mg (3 x 100 mg) PO QHS NERVE PAIN #21 caps 01/22/23 [Rx Last Taken 09/05/23] flash glucose sensor (FreeStyle Gissell 2 Sensor kit) #6 ea 03/16/23 [Rx Last Taken Unknown] hydrocodone 7.5 mg-acetaminophen 325 mg tablet 1 tab PO Q6H PRN pain 3 days #12 tabs 04/06/23 [Rx Last Taken 09/05/23] insulin detemir U-100 100 unit/mL (3 mL) subcutaneous pen 26 unit (0.26 mL) subcut QHS DIABETES #30 mL 08/04/23 [Rx Last Taken 09/03/23] pen needle, diabetic 32 gauge x 5/32 (BD Ultra-Fine Laura Pen Needle) #400 ea 08/04/23 [Rx Last Taken Unknown] dicyclomine 10 mg capsule 10 mg PO BID stomach 08/13/23 [History Last Taken Unknown] insulin aspart U-100 100 unit/mL (3 mL) subcutaneous pen (Novolog FlexPen U-100 Insulin aspart) 6 unit subcut TID DIABETES 08/13/23 [History Last Taken 09/05/23] sucralfate 1 gram tablet 1 g PO TID@0700,1100,1600 ulcers #90 tabs 08/14/23 [Rx Last Taken 09/05/23] albuterol sulfate 90 mcg/actuation aerosol inhaler 2 puff inhalation Q4H PRN shortness of breath or wheezing 02/07/24 [History Last Taken Unknown] amlodipine 5 mg tablet 5 mg PO DAILY 02/07/24 [History Last Taken Unknown] clopidogrel 75 mg tablet (Plavix) 75 mg PO DAILY 02/07/24 [History Last Taken Unknown] diclofenac sodium 1 % topical gel 1 ea topical 4X/DAY 02/07/24 [History Last Taken Unknown] lamotrigine 25 mg tablet 50 mg PO DAILY 02/07/24 [History Last Taken Unknown] levothyroxine 25 mcg tablet 25 mcg PO DAILY 02/07/24 [History Last Taken Unknown] losartan 100 mg tablet 100 mg PO DAILY 02/07/24 [History Last Taken Unknown] prochlorperazine maleate 5 mg tablet 5 mg PO Q8H PRN nausea and vomiting 02/07/24 [History Last Taken Unknown] sennosides 8.6 mg tablet (senna) 17.2 mg PO DAILY 02/07/24 [History Last Taken Unknown] vitamin B complex-vitamin C-folic acid 0.8 mg tablet 1 tab PO DAILY 02/07/24 [History Last Taken Unknown] sucroferric oxyhydroxide 500 mg chewable tablet (Velphoro) 500 mg PO TIDCM end stage renal disease 02/08/24 [History Last Taken Unknown] Allergy/AdvReac Type Severity Reaction Status Date / Time lidocaine Allergy Severe Rash Verified 12/21/23 15:44 bacitracin Allergy Intermediate blisters Verified 12/21/23 15:44 hydrogen peroxide Allergy Intermediate blisters Verified 12/21/23 15:44 isopropyl alcohol Allergy Intermediate blisters Verified 12/21/23 15:44 Sulfa (Sulfonamide Allergy Intermediate Rash Verified 12/21/23 15:44 Antibiotics) Bleach (Sodium Hypochlorite) Allergy Hives Verified 12/21/23 15:44 insulin lispro Allergy HIVES, Verified 12/21/23 15:44 [From Humalog U-100 Insulin] REDNESS Latex, Natural Rubber Allergy Rash Verified 12/21/23 15:44 ondansetron [From Zofran] AdvReac Severe Constipatio Verified 12/21/23 15:44 n dicyclomine AdvReac Mild Vomiting Verified 12/21/23 15:44 metformin AdvReac Vomiting Verified 12/21/23 15:44 neomycin AdvReac HIVES, Verified 12/21/23 15:44 [From Neosporin REDNESS ([id number])] polymyxin B AdvReac HIVES, Verified 12/21/23 15:44 [From Neosporin REDNESS ([id number])] Family History Other Arthritis Asthma CVA (cerebral vascular accident) Diabetes Heart disease High cholesterol Hypertension Kidney disease Osteoporosis Seizures Surgical History H/O left knee surgery H/O right knee surgery History of arteriovenostomy for renal dialysis History of bladder surgery History of History of cholecystectomy History of foot surgery History of infusaport central venous catheter removal History of liver biopsy History of lumpectomy of right breast History of shoulder surgery History of thoracentesis Hx of tonsillectomy Social History household members: family housing: house Smoking Status: Former smoker alcohol intake: never ROS ROS Narrative Negative except above Physical Exam Narrative Alert awake oriented x 3 no obvious distress no pallor no icterus no JVD s1s2 no murmurs lungs clear abdomen soft no organomegaly no edema no cyanosis Lab / Micro Data 02/08/24 07:24 02/08/24 07:24 Labs: Laboratory Results - last 24 hr 02/07/24 12:23: WBC 6.6, RBC 3.78 L, Hgb 10.9 L, Hct 33.1 L, MCV 87.6, MCH 28.8, MCHC 32.9, RDW Std Deviation 43.2, RDW Coeff of Juan 13.5, Plt Count 275, MPV 9.5, Immature Gran % (Auto) 0.800, Neut % (Auto) 63.5, Lymph % (Auto) 26.6, [place] % (Auto) 4.9, Eos % (Auto) 3.0, Baso % (Auto) 1.2 H, Absolute Neuts (auto) 4.2, Absolute Lymphs (auto) 1.75, Nucleated RBC % 0, Sodium 134 L, Potassium 4.4, Chloride 102, Carbon Dioxide 23.0, Anion Gap 9, BUN 31 H, Creatinine 6.05 H, Est GFR (MDRD) Af Amer 10 L, Est GFR (MDRD) Non-Af 8 L, BUN/Creatinine Ratio 5.1 L, Glucose 557 H*, Calcium 8.8, B-Natriuretic Peptide 278.9 H 02/07/24 14:10: Urine Color Yellow, Urine Clarity Sl. Cloudy, Urine pH 7.0, Ur Specific [place] 1.010, Urine Protein 500 H, Urine Glucose (UA) 1000 H, Urine Ketones 5 H, Urine Occult Blood 250 H, Urine Nitrite Negative, Urine Bilirubin Negative, Urine Urobilinogen Normal, Ur Leukocyte Esterase 100 H, Urine RBC 25-50 SEEN, Urine WBC 25-50 SEEN, Ur Squamous Epith Cells 0-5 SEEN, Urine Bacteria 3+, Urine Mucus 0 SEEN 02/07/24 18:37: POC Glucose 460 H* 02/07/24 19:16: Troponin I High Sens 33 02/07/24 20:42: Troponin I High Sens 29 02/07/24 23:43: POC Glucose 365 H 02/08/24 01:09: Troponin I High Sens 34 02/08/24 06:04: POC Glucose 87 02/08/24 07:24: WBC 7.7, RBC 3.48 L, Hgb 10.0 L, Hct 30.5 L, MCV 87.6, MCH 28.7, MCHC 32.8, RDW Std Deviation 43.3, RDW Coeff of Juan 13.5, Plt Count 253, MPV 9.5, Immature Gran % (Auto) 0.800, Neut % (Auto) 49.2, Lymph % (Auto) 38.8, [place] % (Auto) 6.3, Eos % (Auto) 3.9, Baso % (Auto) 1.0, Absolute Neuts (auto) 3.8, Absolute Lymphs (auto) 2.97, Nucleated RBC % 0, PT Cancelled, INR Cancelled, APTT Cancelled, Sodium 137, Potassium 4.0, Chloride 108 H, Carbon Dioxide 21.0, Anion Gap 8, BUN 32 H, Creatinine 6.40 H, Estim Creat Clear Calc 14.48, Est GFR (MDRD) Af Amer 9 L, Est GFR (MDRD) Non-Af 7 L, BUN/Creatinine Ratio 5.0 L, Glucose 91, Calcium 8.7 Micro: Microbiology 02/07/24 14:10 Urine Catheter - Catheter Urine Culture - Preliminary GNR lactose building maintenance repairer Imaging Radiology Impression Abdomen/Pelvis CT 02/07/24 12:56 IMPRESSION: Findings suggestive of emphysematous cystitis. Clinical correlation is recommended. Large left pleural effusion with left basilar atelectasis. Status post cholecystectomy. Electronically Signed: Vaughn Alves MD at 14:14 EDT , Brain CT 02/07/24 12:56 IMPRESSION: Normal unenhanced CT scan of the brain. Partial opacification of a small right frontal sinus. Electronically Signed: Vaughn Alves MD at 14:06 EDT , Chest X-Ray 02/07/24 13:40 IMPRESSION: Large left pleural effusion with underlying left volume loss. Electronically Signed: Vaughn Alves MD at 13:58 EDT ,
[2024-02-08 10:52] LABS: Prothrombin Time (Protime)PT. 13.3 SECONDS (11.7-14.9)
[2024-02-08 10:53] LABS: Partial Thromboplast Time 21.3 Seconds (24.1-36.2)
[2024-02-08] MEDS: Dicyclomine 10 MG Capsule PO ×2 (11:31→22:15)
[2024-02-08] MEDS: Vitamin B Comp W-C Capsule 1 CAP PO (11:31)
[2024-02-08] MEDS: Clopidogrel Bisulfate 75 MG Tablet PO (11:32)
[2024-02-08] MEDS: Bumetanide 2 MG Tablet 1 MG PO ×2 (11:32→22:16)
[2024-02-08] MEDS: amLODIPine 5 MG Tablet PO (11:32)
[2024-02-08] MEDS: Loratadine 10 MG Tablet PO (11:32)
[2024-02-08] MEDS: lamoTRIgine 25 MG Tablet 50 MG PO (11:32)
[2024-02-08] MEDS: Losartan Potassium 100 MG Tablet PO (11:32)
[2024-02-08] MEDS: Pantoprazole Sodium 40 MG Tablet PO (11:32)
[2024-02-08] MEDS: Aspirin E.C. 81 MG Tablet PO (11:33)
[2024-02-08] MEDS: HYDROcodone Bitartrate/Apap 5/325 Tablet PO ×2 (11:41→22:15)
[2024-02-08] MEDS: 0.9% Saline Lock 10 ML Syringe IV ×2 (11:42→22:25)
[2024-02-08 11:53] LABS: Bedside Glucose 94 mg/dL (74-106)
[2024-02-08] MEDS: Ceftriaxone 1 GM/50 ML BAG IV (11:57)
--- NOTE | 2024-02-08 13:14 | PN.HOSP_ITS ---
Subjective Subjective No issues overnight, not very communicative this morning Objective Data Objective Data Vital Signs: Vital Signs Temp Pulse Resp BP Pulse Ox O2 Del Method O2 Flow Rate 97.7 F L 63 15 160/59 H 96 Nasal Cannula 1 02/08/24 11:30 02/08/24 11:51 02/08/24 11:51 02/08/24 11:51 02/08/24 11:51 02/08/24 11:51 02/08/24 11:51 Oxygen Flow Rate (L/min) 1 Oxygen Delivery Method Nasal Cannula Weight: 254 lb 6.615 oz Body Mass Index (BMI) 39.9 Intake & Output: Intake and Output for Last 24 Hours 02/07/24 02/08/24 02/09/24 03:59 03:59 03:59 Intake Total 1050 / 1050 120 / 120 Output Total 3200 / 3200 Balance 1050 / 1050 -3080 / -3080 Lab / Micro Data 02/08/24 07:24 02/08/24 07:24 Labs: Laboratory Results - last 24 hr 02/07/24 12:23: B-Natriuretic Peptide 278.9 H 02/07/24 14:10: Urine Color Yellow, Urine Clarity Sl. Cloudy, Urine pH 7.0, Ur Specific [place] 1.010, Urine Protein 500 H, Urine Glucose (UA) 1000 H, Urine Ketones 5 H, Urine Occult Blood 250 H, Urine Nitrite Negative, Urine Bilirubin Negative, Urine Urobilinogen Normal, Ur Leukocyte Esterase 100 H, Urine RBC 25- 50 SEEN, Urine WBC 25-50 SEEN, Ur Squamous Epith Cells 0-5 SEEN, Urine Bacteria 3+, Urine Mucus 0 SEEN 02/07/24 18:37: POC Glucose 460 H* 02/07/24 19:16: Troponin I High Sens 33 02/07/24 20:42: Troponin I High Sens 29 02/07/24 23:43: POC Glucose 365 H 02/08/24 01:09: Troponin I High Sens 34 02/08/24 06:04: POC Glucose 87 02/08/24 07:24: WBC 7.7, RBC 3.48 L, Hgb 10.0 L, Hct 30.5 L, MCV 87.6, MCH 28.7, MCHC 32.8, RDW Std Deviation 43.3, RDW Coeff of Juan 13.5, Plt Count 253, MPV 9.5, Immature Gran % (Auto) 0.800, Neut % (Auto) 49.2, Lymph % (Auto) 38.8, [place] % (Auto) 6.3, Eos % (Auto) 3.9, Baso % (Auto) 1.0, Absolute Neuts (auto) 3.8, Absolute Lymphs (auto) 2.97, Nucleated RBC % 0, PT Cancelled, INR Cancelled, APTT Cancelled, Sodium 137, Potassium 4.0, Chloride 108 H, Carbon Dioxide 21.0, Anion Gap 8, BUN 32 H, Creatinine 6.40 H, Estim Creat Clear Calc 14.48, Est GFR (MDRD) Af Amer 9 L, Est GFR (MDRD) Non-Af 7 L, BUN/Creatinine Ratio 5.0 L, Glucose 91, Calcium 8.7 02/08/24 10:15: PT 13.3, INR 1.0, APTT 21.3 L 02/08/24 11:24: POC Glucose 94 Micro: Microbiology 02/07/24 14:10 Urine Catheter - Catheter Urine Culture - Preliminary GNR lactose financial consultant Radiography Diagnostic Testing: Radiology Impression Abdomen/Pelvis CT 02/07/24 12:56 IMPRESSION: Findings suggestive of emphysematous cystitis. Clinical correlation is recommended. Large left pleural effusion with left basilar atelectasis. Status post cholecystectomy. Electronically Signed: Vaughn Alves MD at 14:14 EDT , Brain CT 02/07/24 12:56 IMPRESSION: Normal unenhanced CT scan of the brain. Partial opacification of a small right frontal sinus. Electronically Signed: Vaughn Alves MD at 14:06 EDT , Chest X-Ray 02/07/24 13:40 IMPRESSION: Large left pleural effusion with underlying left volume loss. Electronically Signed: Vaughn Alves MD at 13:58 EDT , Physical Exam Narrative General: Sleeping but arousable, Oriented x3, Cooperative, No apparent distress HEENT: Atraumatic, PERRLA, EOMI, Normocephalic Oral: Moist Mucosa Neck: Supple, No JVD Lungs: Diminished, Normal air movement, No rhonchi, No wheeze, No rales Cardiovascular: Regular rate, Regular Rhythm, Normal S1, Normal S2, No murmurs Abdomen: Soft, Non Tender, Non-Distended, No Hepato-splenomegaly Extremities: No edema, Capillary Refill Less than 3 Seconds Skin: No rashes, No breakdown Musculoskeletal: No Tenderness to Palpation of Joints or Extremities Neurological: No focal neurological deficits, Motor Exam 5/5 strength throughout, Sensory exam intact to light touch and pain Psych/Mental Status: Flat Assessment & Plan Assessment/Plan (1) Headache: PLAN: Plan 1. Hypertensive urgency with headache in the setting of end-stage renal disease on dialysis/HLD/history of CVA ? Does have a history of hypertension continue with her home medications ? Continue with statin and aspirin ? She has been skipping dialysis for the last 2 weeks she has been telling the dialysis unit that she does not have a ride however nephrology did verify that she does have a ride available ? Continue with dialysis appreciate nephrology's assistance ? Will continue to monitor blood pressures and make adjustments to her home medications as necessary 2. Left pleural effusion ? Will have a therapeutic thoracentesis done ? She has had this attempted in the past however at the time was a dry tap so we will also obtain lab work 3. Emphysematous cystitis ? She has been having dysuria and has had frequent UTIs in the past ? She did have a CT scan which demonstrated emphysematous cystitis ? Continue with IV antibiotics awaiting urine cultures 4. DM2 with hyperglycemia ? Poorly controlled likely noncompliant ? She has not been eating well so she has not been taking her insulin ? Continues with gastroparesis ? Refuses Humalog as she says it gives her hives and did not bring in her own NovoLog from home ? Continue with long-acting insulin ? Will monitor make adjustments as necessary 5. Seizures ? Stable ? Continue with Lamictal DVT: Heparin Charges/Coding Visit Charges Inpatient E&M: 71137 Subs Hosp L2
--- NOTE | 2024-02-08 13:38 | RAD_ITS ---
STUDY: X-RAY CHEST REASON FOR EXAM: Female, 48 years old. Post thora TECHNIQUE: AP inspiration and expiration views following a left thoracentesis. COMPARISON: Comparison is made with prior study dated February 07, 2024. FINDINGS: EKG electrodes are seen. The patient is status post left thoracentesis. Residual pleural-parenchymal changes persist. No evidence of pneumothorax. A vascular stent is seen in the region of the left brachiocephalic vein. RAD/Chest Insp/Exp 2 View IMPRESSION: No evidence of a pneumothorax following left thoracentesis. Residual pleural-parenchymal changes seen at the left lung base. Electronically Signed: Vaughn Alves MD at 13:52 EDT ,
--- NOTE | 2024-02-08 13:51 | PRO.PCM_ITS ---
Procedure Report Date of Procedure: 02/08/24 Assessment & Plan Assessment/Plan (1) Pleural effusion, left: PLAN: PROCEDURE: Ultrasound Guided Thoracentesis ORDERING PROVIDER: Dr. Francisco INDICATION: Female, 48 years old. Left pleural effusion. PROVIDER: SUSANNA Jacobs PROCEDURE: The risks, benefits, and alternatives to the procedure were explained to the patient. The specific risks of bleeding, infection, and pneumothorax requiring chest tube insertion were discussed and accepted. Written informed consent was obtained. The patient was placed in the sitting, upright position. Ultrasonographic evaluation of the bilateral lower pleural spaces was carried out. An adequate pocket was identified in the left lower pleural space.The overlying skin was prepped and draped in sterile fashion. 2% chloroprocaine was administered subcutaneously for local anesthesia, due to lidocaine allergy. Under ultrasound guidance, a 5-Indonesian thoracentesis needle/catheter system was advanced into the left posterior lower pleural fluid collection. 1630 ml of clear yellow colored fluid was drained. 100 and mL of this fluid was collected and sent to laboratory for analysis. Despite some fluid remaining on ultrasound, the catheter was removed because the patient began having pain. A sterile dressing was applied. The patient tolerated the procedure well. A chest x-ray was ordered. IMPRESSION: Successful ultrasound-guided thoracentesis of left pleural effusion. Procedures Radiology Radiology US Procedures: 28826 Thoracentesis
[2024-02-08 14:13] LABS: Body Fluid Mononuclear WBC # 0.052 10^3/uL; Body Fluid Mononuclear WBC % 66.7 %; Body Fluid Polynuclear WBC # 0.026 10^3/uL; Body Fluid Polynuclear WBC % 33.3 %; Body Fluid Total Cells Counted 0.096 10^3/ul; White Blood Count/Body Fluid 0.078 10^3/uL
[2024-02-08 14:16] LABS: Glucose, Body Fluid 251 mg/dL (40-70); LDH,Body Fluid 75 Units/L (Not Establ.); Protein, Body Fluid 2.5 g/dL (Not Establ.)
[2024-02-08 14:17] LABS: Auto B Fluid Analyzer BKGD Ct COUNTS W/IN LIMITS (W/IN LIMITS); Source- Body Fluid THORACENTESIS
[2024-02-08 14:18] LABS: Appearance/Body Fluid CLEAR; Color/Body Fluid YELLOW
[2024-02-08 14:42] LABS: Red Cell Count/Body Fluid < 0 /mm3
--- NOTE | 2024-02-08 14:45 | CASEMGMT ---
RN CM Face to Face with patient for initial transition planning/care coordination assessment. RN CM introduced self and role at [facility]. Patient lying in bed, alert and oriented. Patient willing to participate in assessment and is able to answer all questions appropriately. Care providers, pharmacy, and demographics verified. PCP: Fran Specialists: Elda Lozano; Jhoan, Marine Insurance Claim Examiner Preferred Pharmacy: [facility] [employer] [facility] Prescription Benefit: yes Living Will/HPOA: none LNOK: daughter Living Arrangements: Patient lives with multiple family members in a 2 story home with bed and bath on first floor, 4 steps and railing to enter the home. Patient states her daughter helps with ADLs Transportation: daughter, [employer] to HD DME/HHC: Patient has shower chair, BSC, hospital bed. walker, wheelchair, nebulizer, oxygen at through [facility] at 2lpm with portable tanks. Patient has been to [facility] in the past. Patient has had [facility] and [facility] in the past. Patient wishes to discharge home, denies need for home health at this time. Patient states he has no further needs or concerns at this time. CM to follow for discharge planning needs that may arise. Disposition Plan: Patient to discharge home with family support and follow-up plans in place. Patient will need transport setup for discharge, SW notified. Nita SORIA, RN, CM
[2024-02-08 15:20] LABS: Lymphocytes 28 %; Mesothelial Cells 27 %; Monocytes 10 %; Neutrophil (Segs) 35 %
[2024-02-08 15:21] LABS: Body Fluid QC Type(s) BF1Q
--- NOTE | 2024-02-08 16:06 | PRO.PCM_ITS ---
Procedure Report Date of Procedure: 02/08/24 Assessment & Plan Assessment/Plan (1) Poor venous access: PLAN: PROCEDURE: IV Placement under Ultrasound Guidance PERFORMED BY: SUSANNA Jacobs INDICATION: IV access required. Poor venous access. Left upper extremity restriction. TECHNIQUE: Patient identity was verified with two patient identifiers. Hands were sanitized. The patient was positioned supine with right arm at 90 degrees. The patient's upper arm vasculature was assessed using ultrasound, and the right brachial vein was externally marked. The vein was suitable for insertion of a 20 gauge 8 cm extended dwell catheter. The sterile kit was opened with N-Sided[employer] Dipity supplies dropped in. Mask and prep gloves were donned. The underdrape was placed under the patient's arm. The site was prepped with chlorhexidine, and tourniquet was loosely applied. Prep gloves were discarded, and hands were sanitized. Sterile gloves were donned, and the patient's arm was draped. The sterile kit was assembled with needless connector and loop flushed with sterile normal saline. The right brachial vein was then accessed using dynamic ultrasound guidance, and the catheter advanced easily. 1 attempt was required. The tourniquet was released. The flushed loop and needless connector were attached. Blood return was easily aspirated. 10 ml sterile normal saline was delivered via pulsatile flush, and the loop was clamped prior to removal of the syringe to prevent back flow. Skin was prepped and followed by application of a stat-lock and a clear dressing was applied to secure the IV. The patient tolerated the procedure well.
[2024-02-08] MEDS: SUCROFERRIC OXYHYDROXIDE 500 MG TAB.CHEW PO (16:19)
[2024-02-08 16:47] LABS: Bedside Glucose 119 mg/dL (74-106)
[2024-02-08] MEDS: proMETHazine 25 MG Tablet PO (22:15)
[2024-02-08] MEDS: Atorvastatin Calcium 40 MG Tablet PO (22:15)
[2024-02-08] MEDS: Gabapentin 300 MG Capsule PO (22:15)
[2024-02-08] MEDS: Insulin Glargine-YFGN 100 UNIT/ML Pen 26 UNIT SC (22:16)
[2024-02-08] MEDS: Tamsulosin HCl 0.4 MG Capsule PO (22:18)
[2024-02-08 22:46] LABS: Bedside Glucose 189 mg/dL (74-106)
[2024-02-09] VITALS (15 sets, daily range): BP systolic 119–227; BP diastolic 76–95; PULSE 69–81; RESP 13–18; TEMP 36–36.4; O2SAT 2–100; BMI 40.0; BMI 39.1
[2024-02-09] MEDS: Sucralfate 1 GM Tablet PO (06:31)
[2024-02-09] MEDS: Heparin Injection (Vial) 5,000 UNIT/ML VIAL 5000 UNIT SC ×3 (06:31→23:15)
[2024-02-09] MEDS: Levothyroxine 25 MCG TABLET PO (06:31)
[2024-02-09 07:13] LABS: Bedside Glucose 84 mg/dL (74-106)
[2024-02-09] MEDS: proMETHazine 25 MG Tablet PO (08:21)
[2024-02-09] MEDS: HYDROcodone Bitartrate/Apap 5/325 Tablet PO ×3 (08:21→23:12)
[2024-02-09] MEDS: SUCROFERRIC OXYHYDROXIDE 500 MG TAB.CHEW PO ×2 (08:24→16:59)
[2024-02-09 11:02] LABS: Absolute Lymphocyte Count 2.65 X10^3/uL (0.83-4.51); Absolute Neutrophil Count 3.1 X10^3/uL (2.0-7.7); Basophil# 0.06 X10^3/uL; Basophil% 0.9 % (0-1); Eosinophils% 4.7 % (0-5); Hematocrit 31.6 % (37-47); Hemoglobin 10.5 g/dL (12.0-15.0); Lymphocyte # 2.65 X10^3/ul (0.83-4.51); Lymphocyte % 41.1 % (19-41); Mean Corp Hgb Conc 33.2 g/dL (32-36); Mean Corpuscular Hgb 29.1 pg (27.0-32.0); Mean Corpuscular Volume 87.5 fL (81-99); Mean Platelet Vol. 9.5 fl (6.2-12.0); Monocyte# 0.31 X10^3/uL; Monocyte% 4.8 % (0-10); NRBC Flagged by Analyzer 0 % (0-5); Neutrophil # 3.08 X10^3/uL (2.7-7.7); Neutrophil % 47.7 % (47-70); Platelet Count 247 K/mm3 (150-450); RBC Distribution Width CV 13.7 % (11.6-14.6); RBC Distribution Width SD 43.9 fl (35.1-43.9); Red Blood Count 3.61 M/mm3 (4.2-5.4); White Blood Count 6.5 K/mm3 (4.4-11.0)
[2024-02-09] MEDS: 0.9% Normal Saline 1,000 ML IV.SOLN. 1000 ML OPERA.SITE (11:07)
[2024-02-09] MEDS: PureFlow B 3K Dialysis Soln 1 BAG 6 BAG PF (11:07)
--- NOTE | 2024-02-09 11:36 | PCM.PN.REN ---
Subjective Subjective no new events Objective Data Objective Data Vital Signs: Vital Signs Temp Pulse Resp BP Pulse Ox O2 Del Method O2 Flow Rate 97.5 F L 73 14 151/79 H 100 Nasal Cannula 2 02/09/24 08:37 02/09/24 11:26 02/09/24 11:26 02/09/24 11:26 02/09/24 11:00 02/09/24 11:26 02/09/24 11:26 FiO2 100 02/09/24 10:28 Oxygen Flow Rate (L/min) 2 Oxygen Delivery Method Nasal Cannula Weight: 115.8 kg Body Mass Index (BMI) 40.0 Intake & Output: Intake and Output for Last 24 Hours 02/07/24 02/08/24 02/09/24 23:59 23:59 23:59 Intake Total 550 / 1050 1030 / 1030 Output Total 4930 / 4930 0 / 0 Balance 550 / 1050 -3900 / -3900 0 / 0 Lab / Micro Data 02/09/24 10:54 02/08/24 07:24 Labs: Laboratory Results - last 24 hr 02/08/24 11:24: POC Glucose 94 02/08/24 13:20: Fluid Source THORACENTESIS, Fluid Color YELLOW, Fluid Appearance CLEAR, Fluid WBC 0.078, Fluid RBC < 0, Fluid Tot Cell Count 0.096 H, Fld Polynuclear WBCs # 0.026, Fld Polynuclear WBCs % 33.3, Fluid Mononuclear WBCs 0.052, Fld Mononuclear WBCs % 66.7, Fluid Neutrophils 35, Fluid Lymphocytes 28, Fluid Monocytes 10, Fld Mesothelial Cells 27, Fl Pathologist Comment May follow, Fluid Glucose 251 H, Fluid Total Protein 2.5, Fluid LDH 75, Fluid Comment 2 SEE COMMENT 02/08/24 16:17: POC Glucose 119 H 02/08/24 22:04: POC Glucose 189 H 02/09/24 06:29: POC Glucose 84 02/09/24 10:54: WBC 6.5, RBC 3.61 L, Hgb 10.5 L, Hct 31.6 L, MCV 87.5, MCH 29.1, MCHC 33.2, RDW Std Deviation 43.9, RDW Coeff of Juan 13.7, Plt Count 247, MPV 9.5, Immature Gran % (Auto) 0.800, Neut % (Auto) 47.7, Lymph % (Auto) 41.1 H, [place] % (Auto) 4.8, Eos % (Auto) 4.7, Baso % (Auto) 0.9, Absolute Neuts (auto) 3.1, Absolute Lymphs (auto) 2.65, Nucleated RBC % 0 Micro: Microbiology 02/07/24 14:10 Urine Catheter - Catheter Urine Culture - Preliminary Escherichia coli Radiography Diagnostic Testing: Radiology Impression Chest X-Ray 02/08/24 13:38 IMPRESSION: No evidence of a pneumothorax following left thoracentesis. Residual pleural-parenchymal changes seen at the left lung base. Electronically Signed: Vaughn Alves MD at 13:52 EDT , Physical Exam Narrative Alert awake oriented x 3 no obvious distress no pallor no icterus no JVD s1s2 no murmurs lungs clear abdomen soft no organomegaly no edema no cyanosis Assessment & Plan Assessment/Plan (1) End-stage renal disease (ESRD): PLAN: On hemodialysis. Wednesday, Wednesday, Wednesday schedule. HD today, see orders. UF as tolerated
[2024-02-09 11:38] LABS: Bedside Glucose 111 mg/dL (74-106)
[2024-02-09 11:42] LABS: Anion Gap 6 (5-15); BUN 24 mg/dL (7-18); Calcium,Total 8.5 mg/dL (8.5-10.1); Chloride 106 mmol/L (98-107); EST Glomerular Filtration Rate 10 mL/min (>60); Est Glom Filt Rate - Afr Amer 13 mL/min (>60); Estimated Creatinine Clearance 19.05 ml/min; Glucose 113 mg/dL (74-106); Potassium 3.8 mmol/L (3.5-5.1); Sodium Level 137 mmol/L (136-145)
--- NOTE | 2024-02-09 12:36 | PCM.PN.HOSP ---
Subjective Subjective More alert and feeling better today. Objective Data Objective Data Vital Signs: Vital Signs Temp Pulse Resp BP Pulse Ox O2 Del Method O2 Flow Rate 97.5 F L 72 13 159/93 H 100 Nasal Cannula 2 02/09/24 08:37 02/09/24 12:29 02/09/24 12:29 02/09/24 12:29 02/09/24 11:00 02/09/24 12:29 02/09/24 12:29 FiO2 100 02/09/24 10:28 Oxygen Flow Rate (L/min) 2 Oxygen Delivery Method Nasal Cannula Weight: 255 lb 4.725 oz Body Mass Index (BMI) 40.0 Intake & Output: Intake and Output for Last 24 Hours 02/08/24 02/09/24 02/10/24 03:59 03:59 03:59 Intake Total 1050 / 1050 530 / 530 Output Total 4930 / 4930 Balance 1050 / 1050 -4400 / -4400 Lab / Micro Data 02/09/24 10:54 02/09/24 10:54 Labs: Laboratory Results - last 24 hr 02/08/24 13:20: Fluid Source THORACENTESIS, Fluid Color YELLOW, Fluid Appearance CLEAR, Fluid WBC 0.078, Fluid RBC < 0, Fluid Tot Cell Count 0.096 H, Fld Polynuclear WBCs # 0.026, Fld Polynuclear WBCs % 33.3, Fluid Mononuclear WBCs 0.052, Fld Mononuclear WBCs % 66.7, Fluid Neutrophils 35, Fluid Lymphocytes 28, Fluid Monocytes 10, Fld Mesothelial Cells 27, Fl Pathologist Comment May follow, Fluid Glucose 251 H, Fluid Total Protein 2.5, Fluid LDH 75, Fluid Comment 2 SEE COMMENT 02/08/24 16:17: POC Glucose 119 H 02/08/24 22:04: POC Glucose 189 H 02/09/24 06:29: POC Glucose 84 02/09/24 10:54: WBC 6.5, RBC 3.61 L, Hgb 10.5 L, Hct 31.6 L, MCV 87.5, MCH 29.1, MCHC 33.2, RDW Std Deviation 43.9, RDW Coeff of Juan 13.7, Plt Count 247, MPV 9.5, Immature Gran % (Auto) 0.800, Neut % (Auto) 47.7, Lymph % (Auto) 41.1 H, Carroll % (Auto) 4.8, Eos % (Auto) 4.7, Baso % (Auto) 0.9, Absolute Neuts (auto) 3.1, Absolute Lymphs (auto) 2.65, Nucleated RBC % 0, Sodium 137, Potassium 3.8, Chloride 106, Carbon Dioxide 25.0, Anion Gap 6, BUN 24 H, Creatinine 4.80 H, Estim Creat Clear Calc 19.05, Est GFR (MDRD) Af Amer 13 L, Est GFR (MDRD) Non-Af 10 L, BUN/Creatinine Ratio 5.0 L, Glucose 113 H, Calcium 8.5 02/09/24 11:16: POC Glucose 111 H Micro: Microbiology 02/07/24 14:10 Urine Catheter - Catheter Urine Culture - Preliminary Escherichia coli Gram positive shaneka Radiography Diagnostic Testing: Radiology Impression Chest X-Ray 02/08/24 13:38 IMPRESSION: No evidence of a pneumothorax following left thoracentesis. Residual pleural-parenchymal changes seen at the left lung base. Electronically Signed: Vaughn Alves MD at 13:52 EDT , Physical Exam Narrative General: Alert, Oriented x3, Cooperative, No apparent distress HEENT: Atraumatic, PERRLA, EOMI, Normocephalic Oral: Moist Mucosa Neck: Supple, No JVD Lungs: Diminished, Normal air movement, No rhonchi, No wheeze, No rales Cardiovascular: Regular rate, Regular Rhythm, Normal S1, Normal S2, No murmurs Abdomen: Soft, Non Tender, Non-Distended, No Hepato-splenomegaly Extremities: No edema, Capillary Refill Less than 3 Seconds Skin: No rashes, No breakdown Musculoskeletal: No Tenderness to Palpation of Joints or Extremities Neurological: No focal neurological deficits, Motor Exam 5/5 strength throughout, Sensory exam intact to light touch and pain Psych/Mental Status: Flat Assessment & Plan Assessment/Plan (1) Headache: PLAN: Plan 1. Hypertensive urgency with headache in the setting of end-stage renal disease on dialysis/HLD/history of CVA ? Does have a history of hypertension continue with her home medications ? Continue with statin and aspirin ? She has been skipping dialysis for the last 2 weeks she has been telling the dialysis unit that she does not have a ride however nephrology did verify that she does have a ride available ? Continue with dialysis appreciate nephrology's assistance ? Will continue to monitor blood pressures and make adjustments to her home medications as necessary 2. Left pleural effusion ?Status post thoracentesis on 02/08/2024 ? She has had this attempted in the past however at the time was a dry tap so we will also obtain lab work ?This is a transudative effusion as expected 3. 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 She has been having dysuria and has had frequent UTIs in the past ? She did have a CT scan which demonstrated emphysematous cystitis ? Continue with IV antibiotics, cultures are fairly benign but given her history will continue with treatment 4. DM2 with hyperglycemia ? Poorly controlled likely noncompliant ? She has not been eating well so she has not been taking her insulin ? Continues with gastroparesis ? Refuses Humalog as she says it gives her hives and did not bring in her own NovoLog from home ? Continue with long-acting insulin ? Will monitor make adjustments as necessary 5. Seizures ? Stable ? Continue with Lamictal DVT: Heparin Charges/Coding Visit Charges Inpatient E&M: 95156 Subs Hosp L2
[2024-02-09 13:24] LABS: LDH 213 U/L (84-246)
[2024-02-09] MEDS: Senna Tablet 2 TABLET PO (14:27)
[2024-02-09] MEDS: Bumetanide 2 MG Tablet 1 MG PO ×2 (14:28→23:18)
[2024-02-09] MEDS: Pantoprazole Sodium 40 MG Tablet PO (14:28)
[2024-02-09] MEDS: Loratadine 10 MG Tablet PO (14:28)
[2024-02-09] MEDS: amLODIPine 5 MG Tablet PO (14:29)
[2024-02-09] MEDS: Clopidogrel Bisulfate 75 MG Tablet PO (14:29)
[2024-02-09] MEDS: Vitamin B Comp W-C Capsule 1 CAP PO (14:29)
[2024-02-09] MEDS: Aspirin E.C. 81 MG Tablet PO (14:29)
[2024-02-09] MEDS: lamoTRIgine 25 MG Tablet 50 MG PO (14:29)
[2024-02-09] MEDS: Losartan Potassium 100 MG Tablet PO (14:30)
[2024-02-09] MEDS: Dicyclomine 10 MG Capsule PO ×2 (14:30→23:12)
[2024-02-09] MEDS: Ceftriaxone 1 GM/50 ML BAG IV (14:38)
--- NOTE | 2024-02-09 16:41 | CASEMGMT ---
Per assessment yesterday patient interested in palliative care consult. BEATRICE ESCALANTE updated hospitalist, order received. BEATRICE ESCALANTE completed screening tool and sent Palliative referral to [facility].
[2024-02-09] MEDS: Gabapentin 300 MG Capsule PO (23:12)
[2024-02-09] MEDS: Atorvastatin Calcium 40 MG Tablet PO (23:13)
[2024-02-09] MEDS: Tamsulosin HCl 0.4 MG Capsule PO (23:15)
[2024-02-09] MEDS: Insulin Glargine-YFGN 100 UNIT/ML Pen 26 UNIT SC (23:30)
[2024-02-10 00:16] LABS: Bedside Glucose 299 mg/dL (74-106)
[2024-02-10 03:16] VITALS: BP 151/82; PULSE 74; RESP 18; TEMP 36.6; O2SAT 95
[2024-02-10] MEDS: Heparin Injection (Vial) 5,000 UNIT/ML VIAL 5000 UNIT SC ×3 (06:35→21:53)
[2024-02-10] MEDS: Levothyroxine 25 MCG TABLET PO (06:36)
[2024-02-10] MEDS: Nystatin Powder 15gm Bottle 1 APPLIC TOPICAL ×3 (06:36→21:55)
[2024-02-10] MEDS: HYDROcodone Bitartrate/Apap 5/325 Tablet PO ×2 (06:37→20:00)
[2024-02-10] MEDS: proMETHazine 25 MG Tablet PO ×2 (06:37→20:00)
[2024-02-10] MEDS: Sucralfate 1 GM Tablet PO ×3 (06:38→15:45)
[2024-02-10 07:30] VITALS: O2SAT 92
[2024-02-10 08:18] LABS: Pathologist Comment/Body Fluid Reviewed
[2024-02-10 09:06] VITALS: BP 117/97; PULSE 76; RESP 16; TEMP 36.2; O2SAT 100
[2024-02-10] MEDS: SUCROFERRIC OXYHYDROXIDE 500 MG TAB.CHEW PO ×3 (09:22→15:44)
[2024-02-10] MEDS: Aspirin E.C. 81 MG Tablet PO (09:22)
[2024-02-10] MEDS: Bumetanide 2 MG Tablet 1 MG PO ×2 (09:23→21:53)
[2024-02-10] MEDS: Dicyclomine 10 MG Capsule PO ×2 (09:23→21:54)
[2024-02-10] MEDS: Loratadine 10 MG Tablet PO (09:24)
[2024-02-10] MEDS: Vitamin B Comp W-C Capsule 1 CAP PO (09:24)
[2024-02-10] MEDS: Losartan Potassium 100 MG Tablet PO (09:25)
[2024-02-10] MEDS: Clopidogrel Bisulfate 75 MG Tablet PO (09:25)
[2024-02-10] MEDS: lamoTRIgine 25 MG Tablet 50 MG PO (09:25)
[2024-02-10] MEDS: amLODIPine 5 MG Tablet PO (09:25)
[2024-02-10] MEDS: Senna Tablet 2 TABLET PO (09:26)
[2024-02-10] MEDS: Pantoprazole Sodium 40 MG Tablet PO (09:26)
[2024-02-10 12:15] LABS: Bedside Glucose 132 mg/dL (74-106)
[2024-02-10] MEDS: Ceftriaxone 1 GM/50 ML BAG IV (12:18)
[2024-02-10 13:24] LABS: Bedside Glucose 158 mg/dL (74-106)
--- NOTE | 2024-02-10 13:34 | PCM.PN.HOSP ---
Subjective Subjective Doing well, feels better than when she came in but still nervous about her hypotension Objective Data Objective Data Vital Signs: Vital Signs Temp Pulse Resp BP Pulse Ox O2 Del Method O2 Flow Rate 97.1 F L 76 16 117/97 H 100 Nasal Cannula 2 02/10/24 09:06 02/10/24 09:06 02/10/24 09:06 02/10/24 09:06 02/10/24 09:06 02/10/24 09:10 02/10/24 11:00 FiO2 100 02/09/24 10:28 Oxygen Flow Rate (L/min) 2 Oxygen Delivery Method Nasal Cannula Weight: 249 lb 5.485 oz Body Mass Index (BMI) 39.1 Intake & Output: Intake and Output for Last 24 Hours 02/09/24 02/10/24 02/11/24 03:59 03:59 03:59 Intake Total 530 / 530 850 / 850 50 / 50 Output Total 4930 / 4930 2750 / 2750 Balance -4400 / -4400 -1900 / -1900 50 / 50 Lab / Micro Data 02/09/24 10:54 02/09/24 10:54 Labs: Laboratory Results - last 24 hr 02/08/24 13:20: Fl Pathologist Comment Reviewed 02/09/24 23:29: POC Glucose 299 H 02/10/24 06:28: POC Glucose 158 H 02/10/24 11:56: POC Glucose 132 H Micro: Microbiology 02/07/24 14:10 Urine Catheter - Catheter Urine Culture - Final Escherichia coli Corynebacterium minutissimum Physical Exam Narrative General: Alert, Oriented x3, Cooperative, No apparent distress HEENT: Atraumatic, PERRLA, EOMI, Normocephalic Oral: Moist Mucosa Neck: Supple, No JVD Lungs: Diminished, Normal air movement, No rhonchi, No wheeze, No rales Cardiovascular: Regular rate, Regular Rhythm, Normal S1, Normal S2, No murmurs Abdomen: Soft, Non Tender, Non-Distended, No Hepato-splenomegaly Extremities: No edema, Capillary Refill Less than 3 Seconds Skin: No rashes, No breakdown Musculoskeletal: No Tenderness to Palpation of Joints or Extremities Neurological: No focal neurological deficits, Motor Exam 5/5 strength throughout, Sensory exam intact to light touch and pain Psych/Mental Status: Flat Assessment & Plan Assessment/Plan (1) Headache: PLAN: Plan 1. Hypertensive urgency with headache in the setting of end-stage renal disease on dialysis/HLD/history of CVA ? Does have a history of hypertension continue with her home medications ? Continue with statin and aspirin ? She has been skipping dialysis for the last 2 weeks she has been telling the dialysis unit that she does not have a ride however nephrology did verify that she does have a ride available ? Continue with dialysis appreciate nephrology's assistance ? Will continue to monitor blood pressures and make adjustments to her home medications as necessary 2. Left pleural effusion ?Status post thoracentesis on 02/08/2024 ? She has had this attempted in the past however at the time was a dry tap so we will also obtain lab work ?This is a transudative effusion as expected 3. 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 She has been having dysuria and has had frequent UTIs in the past ? She did have a CT scan which demonstrated emphysematous cystitis ? Continue with IV antibiotics, cultures are fairly benign but given her history will continue with treatment 4. DM2 with hyperglycemia ? Poorly controlled likely noncompliant ? She has not been eating well so she has not been taking her insulin ? Continues with gastroparesis ? Refuses Humalog as she says it gives her hives and did not bring in her own NovoLog from home ? Continue with long-acting insulin ? Will monitor make adjustments as necessary 5. Seizures ? Stable ? Continue with Lamictal DVT: Heparin Charges/Coding Visit Charges Inpatient E&M: 00997 Subs Hosp L2
--- NOTE | 2024-02-10 13:58 | PCM.PN.REN ---
Subjective Subjective No new events Objective Data Objective Data Vital Signs: Vital Signs Temp Pulse Resp BP Pulse Ox O2 Del Method O2 Flow Rate 97.1 F L 76 16 117/97 H 100 Nasal Cannula 2 02/10/24 09:06 02/10/24 09:06 02/10/24 09:06 02/10/24 09:06 02/10/24 09:06 02/10/24 09:10 02/10/24 11:00 FiO2 100 02/09/24 10:28 Oxygen Flow Rate (L/min) 2 Oxygen Delivery Method Nasal Cannula Weight: 113.1 kg Body Mass Index (BMI) 39.1 Intake & Output: Intake and Output for Last 24 Hours 02/08/24 02/09/24 02/10/24 23:59 23:59 23:59 Intake Total 1030 / 1030 850 / 850 50 / 50 Output Total 4930 / 4930 2750 / 2750 Balance -3900 / -3900 -1900 / -1900 50 / 50 Lab / Micro Data 02/09/24 10:54 02/09/24 10:54 Labs: Laboratory Results - last 24 hr 02/08/24 13:20: Fl Pathologist Comment Reviewed 02/09/24 23:29: POC Glucose 299 H 02/10/24 06:28: POC Glucose 158 H 02/10/24 11:56: POC Glucose 132 H Micro: Microbiology 02/07/24 14:10 Urine Catheter - Catheter Urine Culture - Final Escherichia coli Corynebacterium minutissimum Physical Exam Narrative Alert awake oriented x 3 no obvious distress no pallor no icterus no JVD s1s2 no murmurs lungs clear abdomen soft no organomegaly no edema no cyanosis Assessment & Plan Assessment/Plan (1) End-stage renal disease (ESRD): PLAN: On hemodialysis. Wednesday, Wednesday, Wednesday schedule. Initial hypertension. Blood pressure is now better. Pleural effusion. Status post pleural tap.
[2024-02-10 15:00] VITALS: BP 143/81; PULSE 77; RESP 16; TEMP 36.7; O2SAT 98
[2024-02-10 15:34] LABS: Bedside Glucose 236 mg/dL (74-106)
[2024-02-10 15:34] LABS: Bedside Glucose 220 mg/dL (74-106)
[2024-02-10 15:52] LABS: Absolute Lymphocyte Count 2.22 X10^3/uL (0.83-4.51); Absolute Neutrophil Count 3.2 X10^3/uL (2.0-7.7); Basophil# 0.07 X10^3/uL; Basophil% 1.1 % (0-1); Eosinophil# 0.35 X10^3/uL; Eosinophils% 5.5 % (0-5); Hematocrit 31.1 % (37-47); Hemoglobin 10.1 g/dL (12.0-15.0); Lymphocyte # 2.22 X10^3/ul (0.83-4.51); Mean Corp Hgb Conc 32.5 g/dL (32-36); Mean Corpuscular Hgb 28.7 pg (27.0-32.0); Mean Corpuscular Volume 88.4 fL (81-99); Mean Platelet Vol. 9.1 fl (6.2-12.0); Monocyte# 0.44 X10^3/uL; Monocyte% 6.9 % (0-10); NRBC Flagged by Analyzer 0 % (0-5); Neutrophil % 50.4 % (47-70); Platelet Count 236 K/mm3 (150-450); RBC Distribution Width CV 13.7 % (11.6-14.6); RBC Distribution Width SD 44.5 fl (35.1-43.9); Red Blood Count 3.52 M/mm3 (4.2-5.4); White Blood Count 6.4 K/mm3 (4.4-11.0)
[2024-02-10 16:19] LABS: ALB/GLOB Ratio 0.8 RATIO (0.9-2.4); AST(SGOT) 16 U/L (15-37); Alanine Aminotransfer ALT/SGPT 16 U/L (13-56); Albumin, Serum 2.2 g/dL (3.2-5.0); Alkaline Phosphatase 66 U/L (45-117); Anion Gap 8 (5-15); BUN 27 mg/dL (7-18); BUN/Creat Ratio 5.3 RATIO (10-20); Calcium,Total 7.8 mg/dL (8.5-10.1); Chloride 104 mmol/L (98-107); EST Glomerular Filtration Rate 10 mL/min (>60); Est Glom Filt Rate - Afr Amer 12 mL/min (>60); Globulin 2.9 g/dL (2.2-4.2); Glucose 104 mg/dL (74-106); Potassium 4.5 mmol/L (3.5-5.1); Protein, Total 5.1 g/dL (6.4-8.2); Sodium Level 137 mmol/L (136-145)
[2024-02-10 18:38] LABS: Bedside Glucose 104 mg/dL (74-106)
[2024-02-10] MEDS: Tamsulosin HCl 0.4 MG Capsule PO (21:52)
[2024-02-10] MEDS: Atorvastatin Calcium 40 MG Tablet PO (21:54)
[2024-02-10] MEDS: Menthol/Lanolin/Calamine/Znox 113 GM Tube 1 APPLIC TOPICAL (21:57)
[2024-02-10] MEDS: Insulin Glargine-YFGN 100 UNIT/ML Pen 26 UNIT SC (22:03)
[2024-02-10] MEDS: Gabapentin 300 MG Capsule PO (22:11)
[2024-02-10 22:23] VITALS: BP 151/74; PULSE 80; RESP 14; TEMP 35.7; O2SAT 99
[2024-02-11] VITALS (11 sets, daily range): BP systolic 62–235; BP diastolic 60–94; PULSE 68–83; RESP 13–14; TEMP 35.8–36.3; O2SAT 96–98; BMI 39.1; BMI 39.0
[2024-02-11 00:05] LABS: Bedside Glucose 168 mg/dL (74-106)
[2024-02-11] MEDS: Meclizine HCl 25 MG Tablet PO ×2 (04:05→17:10)
[2024-02-11] MEDS: Heparin Injection (Vial) 5,000 UNIT/ML VIAL 5000 UNIT SC (06:04)
[2024-02-11] MEDS: Nystatin Powder 15gm Bottle 1 APPLIC TOPICAL (06:04)
[2024-02-11] MEDS: Sucralfate 1 GM Tablet PO (06:04)
[2024-02-11] MEDS: Levothyroxine 25 MCG TABLET PO (06:04)
[2024-02-11 07:58] LABS: Bedside Glucose 118 mg/dL (74-106)
[2024-02-11 07:58] LABS: Bedside Glucose 96 mg/dL (74-106)
[2024-02-11] MEDS: Losartan Potassium 100 MG Tablet PO (08:32)
[2024-02-11] MEDS: Loratadine 10 MG Tablet PO (08:32)
[2024-02-11] MEDS: Dicyclomine 10 MG Capsule PO (08:32)
[2024-02-11] MEDS: Pantoprazole Sodium 40 MG Tablet PO (08:33)
[2024-02-11] MEDS: amLODIPine 5 MG Tablet PO (08:33)
[2024-02-11] MEDS: Vitamin B Comp W-C Capsule 1 CAP PO (08:33)
[2024-02-11] MEDS: Bumetanide 2 MG Tablet 1 MG PO (08:33)
[2024-02-11] MEDS: lamoTRIgine 25 MG Tablet 50 MG PO (08:33)
[2024-02-11] MEDS: Aspirin E.C. 81 MG Tablet PO (08:34)
[2024-02-11] MEDS: Clopidogrel Bisulfate 75 MG Tablet PO (08:34)
[2024-02-11] MEDS: SUCROFERRIC OXYHYDROXIDE 500 MG TAB.CHEW PO (08:35)
[2024-02-11] MEDS: Senna Tablet 2 TABLET PO (08:35)
[2024-02-11] MEDS: Ceftriaxone 1 GM/50 ML BAG IV (08:42)
[2024-02-11] MEDS: HYDROcodone Bitartrate/Apap 5/325 Tablet PO ×2 (08:43→17:10)
[2024-02-11] MEDS: 0.9% Saline Lock 10 ML Syringe IV (08:45)
[2024-02-11] MEDS: Menthol/Lanolin/Calamine/Znox 113 GM Tube 1 APPLIC TOPICAL (11:35)
--- NOTE | 2024-02-11 11:48 | PCM.DC ---
Discharge Instructions Diet Discharge Diet: Low fat / Low cholesterol, 1800 Calorie Control Diet, Carb Control Diet and Renal Diet Activity Discharge Activity: Return to Normal Activity Dressing / Incision Call your doctor if you observe: Fever of 101 or Higher, Shortness of breath, Dizziness, Fainting spells, Swelling in the ankles, Chest pain and Increased palpitations (irregular heartbeat) Follow Up Care Test Results: Test results from this visit will be discussed in further detail at your follow-up appointment, if applicable. Discharge Plan Admission Admit Date/Time: 02/07/24 15:15 Attending Provider: Fabiano Ortega Primary Care Provider: Sarah Peters Consulting Providers: José Miguel Staples; Selam Francisco Instructions Patient Instructions: ZACKERY RN Thoracentesis Dc Discharge Orders/Prescriptions Prescriptions: New meclizine 25 mg Tablet 25 mg PO TID PRN PRN (Reason: Dizziness) 3 Days Qty: 10 0RF Continued aspirin 81 mg tablet,delayed release (DR/EC) 81 mg PO DAILY cetirizine 10 mg tablet 10 mg PO DAILY pantoprazole 40 mg tablet,delayed release (DR/EC) 40 mg PO DAILY bumetanide 1 mg tablet 1 mg PO BID tamsulosin 0.4 mg capsule 0.4 mg PO QHS promethazine 25 mg tablet 25 mg PO Q8H PRN (Reason: NAUSEA/VOMITING) atorvastatin 40 mg Tablet 40 mg PO QHS Qty: 30 1RF albuterol sulfate 2.5 mg /3 mL (0.083 %) Solution For Nebulization 2.5 mg INHALATION Q4H PRN (Reason: SOB) gabapentin 100 mg capsule 300 mg PO QHS Qty: 21 0RF hydrocodone-acetaminophen 7.5-325 mg tablet 1 tab PO Q6H PRN (Reason: pain) 3 Days Qty: 12 0RF dicyclomine 10 mg capsule 10 mg PO BID insulin aspart U-100 [Novolog FlexPen U-100 Insulin] 100 unit/mL (3 mL) insulin pen 6 unit subcut TID Rx Instructions: PT TAKES 6-10 UNITS THREE TIMES DAILY sucralfate 1 gram Tablet 1 g PO TID@0700,1100,1600 Qty: 90 0RF amlodipine 5 mg tablet 5 mg PO DAILY albuterol sulfate 90 mcg/actuation HFA aerosol inhaler 2 puff inhalation Q4H PRN (Reason: shortness of breath or wheezing) diclofenac sodium 1 % gel 1 ea topical 4X/DAY B complex-vitamin C-folic acid 0.8 mg tablet 1 tab PO DAILY prochlorperazine maleate 5 mg tablet 5 mg PO Q8H PRN (Reason: nausea and vomiting) sennosides [senna] 8.6 mg tablet 17.2 mg PO DAILY levothyroxine 25 mcg tablet 25 mcg PO DAILY losartan 100 mg tablet 100 mg PO DAILY lamotrigine 25 mg tablet 50 mg PO DAILY clopidogrel [Plavix] 75 mg tablet 75 mg PO DAILY Velphoro 500 mg tablet,chewable 500 mg PO TIDCM fluconazole 150 mg tablet 150 mg PO PRN PRN (Reason: yeast infection) 1 Days Qty: 1 0RF (DME) FreeStyle Gissell 2 Sensor Kit See Rx Instructions .Route Qty: 6 1RF Rx Instructions: 1 sensor q 14 days insulin detemir U-100 100 unit/mL (3 mL) insulin pen 26 unit subcut QHS Qty: 30 0RF (DME) pen needle, diabetic [BD Ultra-Fine Laura Pen Needle] 32 gauge x 5/32 needle See Rx Instructions .ROUTE .MEDSUPPLY Qty: 400 3RF Rx Instructions: 4 times daily Referrals / Follow Up: José Miguel Staples MD [Med Staff - Consulting] - Within 3 Months Sarah Peters DO [Primary Care Provider] - Within 1 Week Disposition Disposition (needs filled in before D/C Order can be placed): Home, Self Care
--- NOTE | 2024-02-11 15:23 | CASEMGMT ---
Patient has order for discharge. RN CM in to discuss needs at discharge. Patient denies further needs or help at discharge. RN CM updated [facility] of discharge. Patient had no further questions or concerns.
--- NOTE | 2024-02-11 15:40 | CASEMGMT ---
Patient needs transportation home. Patient has her own wheelchair at [facility]. SW called [facility] and arranged for patient to get picked up at 6p. Patient is getting dialysis and won't be done until around 530. Lacey UNNEZ
--- NOTE | 2024-02-11 16:12 | DS.PCM_ITS ---
Providers Date of Admission: 02/07/24 Primary Care Physician: Dr. Xochitl Peters, DO Consultations 02/07/24 17:50 Consult: Nephrology Routine Consulting Provider: José Miguel Staples Reason for Consult: ESRD, needs hemodialysis EMERGENT Consult: No MD Notified: Yes Date Notified: 02/07/24 Time Notified: 15:19 Method of Notification: Text Reason For Visit: LEFT PLEURAL EFFUSION, UTI Diagnosis Discharge Diagnosis (1) End-stage renal disease (ESRD): Status: Acute Code(s): N18.6 - End stage renal disease Medications at Discharge Home Medications aspirin 81 mg tablet,delayed release 81 mg PO DAILY HEART HEALTH 06/23/22 bumetanide 1 mg tablet 1 mg PO BID FLUID 06/23/22 cetirizine 10 mg tablet 10 mg PO DAILY ALLERGIES 06/23/22 pantoprazole 40 mg tablet,delayed release 40 mg PO DAILY ACID REFLUX 06/23/22 tamsulosin 0.4 mg capsule 0.4 mg PO QHS BLADDER 06/23/22 promethazine 25 mg tablet 25 mg PO Q8H PRN NAUSEA/VOMITING 09/01/22 atorvastatin 40 mg tablet 40 mg PO QHS cholesterol #30 tabs 09/04/22 albuterol sulfate 2.5 mg/3 mL (0.083 %) solution for nebulization 2.5 mg inhalation Q4H PRN SOB 01/07/23 gabapentin 100 mg capsule 300 mg (3 x 100 mg) PO QHS NERVE PAIN #21 caps 01/22/23 flash glucose sensor (FreeStyle Gissell 2 Sensor kit) #6 ea 03/16/23 hydrocodone 7.5 mg-acetaminophen 325 mg tablet 1 tab PO Q6H PRN pain 3 days #12 tabs 04/06/23 insulin detemir U-100 100 unit/mL (3 mL) subcutaneous pen 26 unit (0.26 mL) subcut QHS DIABETES #30 mL 08/04/23 pen needle, diabetic 32 gauge x (BD Ultra-Fine Laura Pen Needle) #400 ea 08/04/23 dicyclomine 10 mg capsule 10 mg PO BID stomach 08/13/23 insulin aspart U-100 100 unit/mL (3 mL) subcutaneous pen (Novolog FlexPen U-100 Insulin aspart) 6 unit subcut TID DIABETES 08/13/23 sucralfate 1 gram tablet 1 g PO TID@0700,1100,1600 ulcers #90 tabs 08/14/23 albuterol sulfate 90 mcg/actuation aerosol inhaler 2 puff inhalation Q4H PRN shortness of breath or wheezing 02/07/24 amlodipine 5 mg tablet 5 mg PO DAILY 02/07/24 clopidogrel 75 mg tablet (Plavix) 75 mg PO DAILY 02/07/24 diclofenac sodium 1 % topical gel 1 ea topical 4X/DAY 02/07/24 lamotrigine 25 mg tablet 50 mg PO DAILY 02/07/24 levothyroxine 25 mcg tablet 25 mcg PO DAILY 02/07/24 losartan 100 mg tablet 100 mg PO DAILY 02/07/24 prochlorperazine maleate 5 mg tablet 5 mg PO Q8H PRN nausea and vomiting 02/07/24 sennosides 8.6 mg tablet (senna) 17.2 mg PO DAILY 02/07/24 vitamin B complex-vitamin C-folic acid 0.8 mg tablet 1 tab PO DAILY 02/07/24 sucroferric oxyhydroxide 500 mg chewable tablet (Velphoro) 500 mg PO TIDCM end stage renal disease 02/08/24 fluconazole 150 mg tablet 150 mg PO PRN PRN yeast infection 1 day #1 TAB 02/11/24 meclizine 25 mg tablet 25 mg PO TID PRN PRN Dizziness 3 days #10 tabs 02/11/24 Hospital Course Operations None Procedures Dialysis and Thoracentesis Summary of Care Provided Minutes Spent on Discharge: 33 Hospital Course: Per HPI: XOCHITL CHERRY, is a 48 F with an extensive PMH as outlined who presents via the ED on 02/07/2024 with a complaint of headache. The headache is chronic. She denied any dizziness, lightheadedness, palpitations, nausea, vomiting or any other symptoms. She has been noncompliant with her insulin because she says she cant eat in the mornings, take the insulin and go for dialysis, and also doesnt want her blood sugars to bottom out in the night. She also admitted to urinary symptoms like dysuria, and also complained of shortness of breath, which worsened with exertion. she said she had diarrhea and also missed her last dialysis session. Vitals in the ED were 213/127, OK of 76, RR of 16 and she was saturating at 98% on room air. CBC showed Hb of 10.9, wbc of 6.6 and platelets of 275. Chemistry showed sodium of 134 with creatinine of 6.05 and potassium of 4.4. Blood glucose was 557 and BNP was 278.9. Bicarb was 23 and anion gap was 9. Urinalysis showed 3+ bacteria with 100 leukocyte esterase per high-power field. CT abdomen and pelvis showed emphysematous cystitis with large left pleural effusion with left basilar atelectasis. Chest x-ray also showed a large left pleural effusion with underlying left volume loss and CT of the brain showed no acute intracranial pathology. She has been admitted to be managed for large left pleural effusion, emphysematous cystitis and headache. Nephrology was consulted for dialysis/was prescribed today. Hospital Course: 1. Hypertensive urgency with headache in the setting of end-stage renal disease on dialysis/HLD/history of CVA ? Does have a history of hypertension continue with her home medications ? Continue with statin and aspirin ? She has been skipping dialysis for the last 2 weeks she has been telling the dialysis unit that she does not have a ride however nephrology did verify that she does have a ride available ? Continue with dialysis appreciate nephrology's assistance ? Will continue to monitor blood pressures and make adjustments to her home medications as necessary 02/11/2024: She feels much better today, she expressed understanding of the risk benefits of going home and would like to go home today after dialysis. She did request some meclizine as she has had periodic dizziness with getting up. She will need to follow-up with nephrology and continue with her dialysis on [facility]. 2. Left pleural effusion ?Status post thoracentesis on 02/08/2024 ? She has had this attempted in the past however at the time was a dry tap so we will also obtain lab work ?This is a transudative effusion as expected 3. 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 She has been having dysuria and has had frequent UTIs in the past ? She did have a CT scan which demonstrated emphysematous cystitis ? Continue with IV antibiotics, cultures are fairly benign but given her history will continue with treatment 02/11/2024: She completed 5 days worth of IV Rocephin, she does get yeast infections after antibiotics so she was also prescribed 1 dose of Diflucan to treat this 4. DM2 with hyperglycemia ? Poorly controlled likely noncompliant ? She has not been eating well so she has not been taking her insulin ? Continues with gastroparesis ? Refuses Humalog as she says it gives her hives and did not bring in her own NovoLog from home ? Continue with long-acting insulin ? Will monitor make adjustments as necessary 5. Seizures ? Stable ? Continue with Lamictal Physical Exam Narrative General: Alert, Oriented x3, Cooperative, No apparent distress HEENT: Atraumatic, PERRLA, EOMI, Normocephalic Oral: Moist Mucosa Neck: Supple, No JVD Lungs: Diminished, Normal air movement, No rhonchi, No wheeze, No rales Cardiovascular: Regular rate, Regular Rhythm, Normal S1, Normal S2, No murmurs Abdomen: Soft, Non Tender, Non-Distended, No Hepato-splenomegaly Extremities: No edema, Capillary Refill Less than 3 Seconds Skin: No rashes, No breakdown Musculoskeletal: No Tenderness to Palpation of Joints or Extremities Neurological: No focal neurological deficits, Motor Exam 5/5 strength throughout , Sensory exam intact to light touch and pain Psych/Mental Status: Flat Weight / BMI Weight Weight: 249 lb 5.485 oz Body Mass Index (BMI) 39.1 ABG / Lab / Microbiology Data 02/10/24 15:44 02/10/24 15:44 Laboratory: Laboratory Results - last 24 hr 02/10/24 15:44: Sodium 137, Potassium 4.5, Chloride 104, Carbon Dioxide 25.0, Anion Gap 8, BUN 27 H, Creatinine 5.10 H, Estim Creat Clear Calc 17.70, Est GFR (MDRD) Af Amer 12 L, Est GFR (MDRD) Non-Af 10 L, BUN/Creatinine Ratio 5.3 L, Glucose 104, Calcium 7.8 L, Total Bilirubin 0.20, AST 16, ALT 16, Alkaline Phosphatase 66, Total Protein 5.1 L, Albumin 2.2 L, Globulin 2.9, Albumin/Globu angelic Ratio 0.8 L 02/10/24 17:11: POC Glucose 104 02/10/24 22:02: POC Glucose 168 H 02/11/24 04:04: POC Glucose 96 02/11/24 06:07: POC Glucose 118 H Microbiology: Microbiology 02/07/24 14:10 Urine Catheter - Catheter Urine Culture - Final Escherichia coli Corynebacterium minutissimum D/C Instructions Discharge Diet: Low fat / Low cholesterol, 1800 Calorie Control Diet, Carb Control Diet and Renal Diet Call your doctor if you observe: Fever of 101 or Higher, Shortness of breath, Dizziness, Fainting spells, Swelling in the ankles, Chest pain and Increased palpitations (irregular heartbeat) Meaningful Use Info Meaningful Use Meaningful Use Diagnoses (Choose all that apply): None applicable Ischemic Stroke Statin Dosing Therapy Reference: STATIN DOSE THERAPY REFERENCE: * Patients > 75 years receive moderate or high dose statin therapy. * Patients 75 years or YOUNGER should receive HIGH intensity statin dose unless contraindicated. You will be required to document reason for non-treatment if statin daily dose does not meet guidelines. HIGH DOSE STATIN THERAPY DAILY Atorvastatin > than or = to 40 mg Rosuvastatin > than or = to 20 mg Amlodipine + Atorvastatin > than or = to 2.5/40 mg Ezetimibe + Simvastatin 10/80 mg Simvastatin 80mg Discharge Plan Admission Admit Date/Time: 02/07/24 15:15 Attending Provider: Fabiano Ortega Primary Care Provider: Xochitl Peters Consulting Providers: José Miguel Staples; Selam Francisco Instructions Patient Instructions: ZACKERY RN Thoracentesis Dc Discharge Orders/Prescriptions Prescriptions: New meclizine 25 mg Tablet 25 mg PO TID PRN PRN (Reason: Dizziness) 3 Days Qty: 10 0RF Continued aspirin 81 mg tablet,delayed release (DR/EC) 81 mg PO DAILY cetirizine 10 mg tablet 10 mg PO DAILY pantoprazole 40 mg tablet,delayed release (DR/EC) 40 mg PO DAILY bumetanide 1 mg tablet 1 mg PO BID tamsulosin 0.4 mg capsule 0.4 mg PO QHS promethazine 25 mg tablet 25 mg PO Q8H PRN (Reason: NAUSEA/VOMITING) atorvastatin 40 mg Tablet 40 mg PO QHS Qty: 30 1RF albuterol sulfate 2.5 mg /3 mL (0.083 %) Solution For Nebulization 2.5 mg INHALATION Q4H PRN (Reason: SOB) gabapentin 100 mg capsule 300 mg PO QHS Qty: 21 0RF hydrocodone-acetaminophen 7.5-325 mg tablet 1 tab PO Q6H PRN (Reason: pain) 3 Days Qty: 12 0RF dicyclomine 10 mg capsule 10 mg PO BID insulin aspart U-100 [Novolog FlexPen U-100 Insulin] 100 unit/mL (3 mL) insulin pen 6 unit subcut TID Rx Instructions: PT TAKES 6-10 UNITS THREE TIMES DAILY sucralfate 1 gram Tablet 1 g PO TID@0700,1100,1600 Qty: 90 0RF amlodipine 5 mg tablet 5 mg PO DAILY albuterol sulfate 90 mcg/actuation HFA aerosol inhaler 2 puff inhalation Q4H PRN (Reason: shortness of breath or wheezing) diclofenac sodium 1 % gel 1 ea topical 4X/DAY B complex-vitamin C-folic acid 0.8 mg tablet 1 tab PO DAILY prochlorperazine maleate 5 mg tablet 5 mg PO Q8H PRN (Reason: nausea and vomiting) sennosides [senna] 8.6 mg tablet 17.2 mg PO DAILY levothyroxine 25 mcg tablet 25 mcg PO DAILY losartan 100 mg tablet 100 mg PO DAILY lamotrigine 25 mg tablet 50 mg PO DAILY clopidogrel [Plavix] 75 mg tablet 75 mg PO DAILY Velphoro 500 mg tablet,chewable 500 mg PO TIDCM fluconazole 150 mg tablet 150 mg PO PRN PRN (Reason: yeast infection) 1 Days Qty: 1 0RF (DME) FreeStyle Gissell 2 Sensor Kit See Rx Instructions .Route Qty: 6 1RF Rx Instructions: 1 sensor q 14 days insulin detemir U-100 100 unit/mL (3 mL) insulin pen 26 unit subcut QHS Qty: 30 0RF (DME) pen needle, diabetic [BD Ultra-Fine Laura Pen Needle] 32 gauge x 5/32 needle See Rx Instructions .ROUTE .MEDSUPPLY Qty: 400 3RF Rx Instructions: 4 times daily Referrals / Follow Up: José Miguel Staples MD [Med Staff - Consulting] - Within 3 Months (follow up with dialysis) Xochitl Peters DO [Primary Care Provider] - 02/15/24 11:20 am (Appointment is with Priscilla Caputo N.P.) Disposition Disposition (needs filled in before D/C Order can be placed): Home, Self Care Charges/Coding Visit Charges Inpatient E&M: 71470 Disch Hosp >30min
--- NOTE | 2024-02-11 16:27 | CHAPLAIN ---
Type of Pastoral Visit ___ Initial Visit ___ Follow-up Visit ___ On-call Visit ___ General Patient Visit ___ Spiritual Assessment ___ Family Conference ___ Bereavement ___ Rapid Response ___ Code Blue ___ Other (describe below) Pastoral Care Referral From ___ Patient ___ Family ___ Nurse ___ Physician ___ Hand Scraper ___ Concrete Grinder Operator ___ Other (describe below) Sacrament/Intervention ___ Active listening ___ Anointing ___ Buddhist ___ Bereavement ___ Communion ___ Ashleigh exploration ___ ___ Life review ___ Prayer ___ Reconciliation ___ Sacrament of Sick ___ Supportive presence ___ Wedding ___ Other (describe below) Pastoral Comments patient was sleeping and was not disturbed
--- NOTE | 2024-02-11 16:35 | PCM.PN.REN ---
Subjective Subjective no new events Objective Data Objective Data Vital Signs: Vital Signs Temp Pulse Resp BP Pulse Ox O2 Del Method O2 Flow Rate 97.3 F L 81 14 155/71 H 98 Room Air 2 02/11/24 08:28 02/11/24 15:54 02/11/24 15:54 02/11/24 15:54 02/11/24 13:45 02/11/24 15:54 02/11/24 08:28 FiO2 28 02/11/24 08:42 Oxygen Flow Rate (L/min) 2 Oxygen Delivery Method Room Air Weight: 113.1 kg Body Mass Index (BMI) 39.1 Intake & Output: Intake and Output for Last 24 Hours 02/09/24 02/10/24 02/11/24 23:59 23:59 23:59 Intake Total 850 / 850 1310 / 1550 290 / 290 Output Total 2750 / 2750 0 / 0 Balance -1900 / -1900 1310 / 1550 290 / 290 Lab / Micro Data 02/10/24 15:44 02/10/24 15:44 Labs: Laboratory Results - last 24 hr 02/10/24 17:11: POC Glucose 104 02/10/24 22:02: POC Glucose 168 H 02/11/24 04:04: POC Glucose 96 02/11/24 06:07: POC Glucose 118 H Micro: Microbiology 02/07/24 14:10 Urine Catheter - Catheter Urine Culture - Final Escherichia coli Corynebacterium minutissimum Physical Exam Narrative Alert awake oriented x 3 no obvious distress no pallor no icterus no JVD s1s2 no murmurs lungs clear abdomen soft no organomegaly no edema no cyanosis Assessment & Plan Assessment/Plan (1) End-stage renal disease (ESRD): PLAN: On hemodialysis. Wednesday, Wednesday, Wednesday schedule. HD today Initial hypertension. Blood pressure is now better. Pleural effusion. Status post pleural tap. dc today
[2024-02-11] MEDS: proMETHazine 25 MG Tablet PO (18:41)
== END 2024-02-11 20:18 | disposition home or self-care (01) | DRG 291 ==
LOC: ED 12:27 → PCU 15:57
PROVIDERS: Admitting Provider Student in an Organized Health Care Education/Training Program; Emergency Provider Student in an Organized Health Care Education/Training Program; PCP Family Medicine; Visit Provider Family Medicine
DX: I13.2 Hypertensive heart and chronic kidney disease with heart failure and with stage 5 chronic kidney disease, or end stage renal disease (principal); N18.6 End stage renal disease; J90 Pleural effusion, not elsewhere classified; J98.11 Atelectasis; E11.649 Type 2 diabetes mellitus with hypoglycemia without coma; E11.22 Type 2 diabetes mellitus with diabetic chronic kidney disease; B96.20 Unspecified Escherichia coli [E. coli] as the cause of diseases classified elsewhere; E86.9 Volume depletion, unspecified; G40.909 Epilepsy, unspecified, not intractable, without status epilepticus; I50.9 Heart failure, unspecified; E11.43 Type 2 diabetes mellitus with diabetic autonomic (poly)neuropathy; Z79.4 Long term (current) use of insulin; E11.65 Type 2 diabetes mellitus with hyperglycemia; I16.0 Hypertensive urgency; M79.7 Fibromyalgia; Z99.2 Dependence on renal dialysis; E78.00 Pure hypercholesterolemia, unspecified; K31.84 Gastroparesis; N30.80 Other cystitis without hematuria; Z87.891 Personal history of nicotine dependence; Z79.82 Long term (current) use of aspirin; Z66 Do not resuscitate; Z82.3 Family history of stroke; Z86.73 Personal history of transient ischemic attack (TIA), and cerebral infarction without residual deficits; Z87.440 Personal history of urinary (tract) infections; R51.9 Headache, unspecified; Z91.148 Patient's other noncompliance with medication regimen for other reason; Z90.49 Acquired absence of other specified parts of digestive tract
CPT/HCPCS: 32555; 36415; 70450; 71045; 71046; 74176; 80048; 80053; 81001; 82945; 82962; 83615; 83880; 84157; 84484; 85025; 85610; 85730; 87077; 87086; 87088; 87186; 88108; 88305; 88313; 89050; 90937; 97110; 97162; 97166; 97530; 97802; 97803; 99285; J7030; J7040; P9612; A4216; G0257

== ENCOUNTER 2024-04-03 15:48 | Emergency (ER) | payer MEDICARE, MEDICAID, SELFPAY ==
[2024-04-03 15:50] VITALS: BP 133/70; PULSE 71; RESP 20; TEMP 36.6; O2SAT 98; BMI 38.9
[2024-04-03 16:04] VITALS: O2SAT 100
--- NOTE | 2024-04-03 16:25 | EKG12_ITS ---
Test Reason : FALL Blood Pressure : / mmHG Vent. Rate : 073 BPM Atrial Rate : 073 BPM P-R Int : 142 ms QRS Dur : 082 ms QT Int : 438 ms P-R-T Axes : 020 040 040 degrees QTc Int : 482 ms Normal sinus rhythm Prolonged QT Nonspecific ST changes Abnormal ECG Confirmed by Reggie Lopez ([id number]), school photograph editor CASIMIRO JOY ([id number]) on 04/07/2024 9:07:34 AM Referred By: Confirmed By:Reggie Lopez
--- NOTE | 2024-04-03 16:36 | EDS_ITS ---
HPI HPI - Fall History of Present Illness Chief Complaint: Fall Narrative Narrative: 49-year-old female presenting after a fall. Patient states she was at dialysis and she stood up to pivot with assistance and she started to feel lightheaded and fell on her buttocks. Her family members that she fell against her onto her buttocks and she did not hit her head. Apparently she sustained a laceration to the right tibial region and her lower leg went under her and she has a lot of pain in that region. She states she has pain from the right hip down to her right foot. She states her left knee and tibial region hurt as well. Cannot complaining of pain in her back or her buttocks. Patient states her right shoulder is sore but she was holding onto a doorknob believe she strained something. [facility] Medical History Diabetes Gastroparesis Dialysis patient Kidney disease Pancreatitis Congestive heart failure (CHF) DVT (deep venous thrombosis) TIA (transient ischemic attack) End-stage renal disease (ESRD) Fibromyalgia, primary LUE weakness Hypertensive urgency Transitioned from acute care to home health care Left hand pain Loss of hearing Bruising Arthritis Easy bruising Injury of head and neck Syncope Difficulty swallowing Shortness of breath on exertion History of stress test History of echocardiogram Stroke (~2021) Hypertension Disc disorder ESRD needing dialysis Walker as ambulation aid Vision impairment Wears glasses Seasonal allergies History of Clostridium difficile infection Depression Anxiety Thyroid disease Insulin dependent diabetes mellitus Uses wheelchair Chronic kidney disease Low iron High cholesterol Migraine headache Blackout Dietary restriction History of ulceration Fleming esophagus Gastric reflux Asthma On home oxygen therapy Former smoker History of edema Hypertension History of CHF (congestive heart failure) delivery delivered Left foot amputee (~2019) FH: cholecystectomy Home Medications ?Medication ?Instructions ?Recorded ?Last Taken ?Type aspirin 81 mg tablet,delayed 81 mg PO DAILY HEART HEALTH 06/23/22 09/05/23 History release bumetanide 1 mg tablet 1 mg PO BID FLUID 06/23/22 09/05/23 History cetirizine 10 mg tablet 10 mg PO DAILY ALLERGIES 06/23/22 09/05/23 History pantoprazole 40 mg tablet,delayed 40 mg PO DAILY ACID REFLUX 06/23/22 09/05/23 History release tamsulosin 0.4 mg capsule 0.4 mg PO QHS BLADDER 06/23/22 09/05/23 History promethazine 25 mg tablet 25 mg PO Q8H PRN NAUSEA/VOMITING 09/01/22 Unknown History atorvastatin 40 mg tablet 40 mg PO QHS cholesterol #30 tabs 09/04/22 09/05/23 Rx albuterol sulfate 2.5 mg/3 mL 2.5 mg inhalation Q4H PRN SOB 01/07/23 01/19/23 History (0.083 %) solution for nebulization gabapentin 100 mg capsule 300 mg (3 x 100 mg) PO QHS NERVE 01/22/23 09/05/23 Rx PAIN #21 caps flash glucose sensor (FreeStyle #6 ea 03/16/23 Unknown Rx Gissell 2 Sensor kit) hydrocodone 7.5 mg-acetaminophen 1 tab PO Q6H PRN pain 3 days #12 04/06/23 09/05/23 Rx 325 mg tablet tabs insulin detemir U-100 100 unit/mL 26 unit (0.26 mL) subcut QHS 08/04/23 09/03/23 Rx (3 mL) subcutaneous pen DIABETES #30 mL pen needle, diabetic 32 gauge x #400 ea 08/04/23 Unknown Rx /32 (BD Ultra-Fine Laura Pen Needle) dicyclomine 10 mg capsule 10 mg PO BID stomach 08/13/23 Unknown History insulin aspart U-100 100 unit/mL 6 unit subcut TID DIABETES 08/13/23 09/05/23 History (3 mL) subcutaneous pen (Novolog FlexPen U-100 Insulin aspart) sucralfate 1 gram tablet 1 g PO TID@0700,1100,1600 ulcers 08/14/23 09/05/23 Rx #90 tabs albuterol sulfate 90 mcg/actuation 2 puff inhalation Q4H PRN 02/07/24 Unknown History aerosol inhaler shortness of breath or wheezing amlodipine 5 mg tablet 5 mg PO DAILY 02/07/24 Unknown History clopidogrel 75 mg tablet (Plavix) 75 mg PO DAILY 02/07/24 Unknown History diclofenac sodium 1 % topical gel 1 ea topical 4X/DAY 02/07/24 Unknown History lamotrigine 25 mg tablet 50 mg PO DAILY 02/07/24 Unknown History levothyroxine 25 mcg tablet 25 mcg PO DAILY 02/07/24 Unknown History losartan 100 mg tablet 100 mg PO DAILY 02/07/24 Unknown History prochlorperazine maleate 5 mg 5 mg PO Q8H PRN nausea and vomiting 02/07/24 Unknown History tablet sennosides 8.6 mg tablet (senna) 17.2 mg PO DAILY 02/07/24 Unknown History vitamin B complex-vitamin C-folic 1 tab PO DAILY 02/07/24 Unknown History acid 0.8 mg tablet sucroferric oxyhydroxide 500 mg 500 mg PO TIDCM end stage renal 02/08/24 Unknown History chewable tablet (Velphoro) disease fluconazole 150 mg tablet 150 mg PO PRN PRN yeast infection 02/11/24 Unknown Rx 1 day #1 TAB meclizine 25 mg tablet 25 mg PO TID PRN PRN Dizziness 3 02/11/24 Unknown Rx days #10 tabs clindamycin HCl 150 mg capsule 450 mg (3 x 150 mg) PO TID 7 days 04/03/24 Unknown Rx #63 caps Allergy/AdvReac Type Severity Reaction Status Date / Time lidocaine Allergy Severe Rash Verified 04/03/24 15:55 bacitracin Allergy Intermediate blisters Verified 04/03/24 15:55 hydrogen peroxide Allergy Intermediate blisters Verified 04/03/24 15:55 isopropyl alcohol Allergy Intermediate blisters Verified 04/03/24 15:55 Sulfa (Sulfonamide Allergy Intermediate Rash Verified 04/03/24 15:55 Antibiotics) Bleach (Sodium Hypochlorite) Allergy Hives Verified 04/03/24 15:55 insulin lispro (From Humalog Allergy HIVES, Verified 04/03/24 15:55 U-100 Insulin) REDNESS Latex, Natural Rubber Allergy Rash Verified 04/03/24 15:55 ondansetron (From Zofran) AdvReac Severe Constipatio Verified 04/03/24 15:55 n dicyclomine AdvReac Mild Vomiting Verified 04/03/24 15:55 metformin AdvReac Vomiting Verified 04/03/24 15:55 neomycin (From Neosporin AdvReac HIVES, Verified 04/03/24 15:55 ([id number])) REDNESS polymyxin B (From Neosporin AdvReac HIVES, Verified 04/03/24 15:55 ([id number])) REDNESS Family History Other Arthritis Asthma CVA (cerebral vascular accident) Diabetes Heart disease High cholesterol Hypertension Kidney disease Osteoporosis Seizures Surgical History History of infusaport central venous catheter removal History of bladder surgery History of arteriovenostomy for renal dialysis History of thoracentesis History of History of cholecystectomy History of liver biopsy History of lumpectomy of right breast History of shoulder surgery History of foot surgery Hx of tonsillectomy H/O right knee surgery H/O left knee surgery Social History household members: family housing: house Smoking Status: Former smoker alcohol intake: never ROS ROS ED Constitutional Constitutional ED: Denies chills, fever(s) or sweats Eyes Eyes: Denies blurry vision or change in vision ENT ENT ED: Denies ear pain or sore throat Cardiovascular Cardiovascular: Denies chest pain, palpitations or racing heartbeat Respiratory/Chest Respiratory/Chest: Denies cough, dyspnea or sputum Gastrointestinal Gastrointestinal: Denies abdominal pain, constipation, diarrhea, nausea or vomiting Genitourinary Genitourinary ED: Denies dysuria, hematuria or urinary frequency Musculoskeletal Musculoskeletal: Reports other Details: Right leg pain, left leg pain ; Denies arthralgias, myalgias or neck pain Integumentary Denies abscess, Abrasions or rash Neurologic Neurologic: Denies headache(s), paresthesias or weakness Psychiatric Psychiatric: Denies anxiety, depression, suicidal ideation or suicidal thoughts Endocrine Endocrinology: Denies polydipsia or polyuria EXAM Physical Exam Const Vital Signs: 04/03/24 15:50 04/03/24 16:04 04/03/24 17:26 Temperature 97.8 F 97.9 F Temperature Source Temporal Oral Pulse Rate 71 75 Respiratory Rate 20 H 12 Respiratory Effort Normal Non-Labored Respiratory Depth Normal Respiratory Pattern Normal Blood Pressure 133/70 H 131/82 H Blood Pressure Mean 91 98 Pulse Ox 98 100 100 Oxygen Delivery Method Nasal Cannula Nasal Cannula Nasal Cannula Oxygen Flow Rate (L/min) 3 3 3 04/03/24 19:09 04/03/24 21:53 04/03/24 21:54 Temperature 97.5 F L 97.4 F L Temperature Source Oral Pulse Rate 78 70 72 Respiratory Rate 19 H 18 18 Respiratory Effort Respiratory Depth Respiratory Pattern Blood Pressure 125/66 H 120/53 L 120/53 L Blood Pressure Mean 85 75 75 Pulse Ox 98 97 98 Oxygen Delivery Method Nasal Cannula Room Air Oxygen Flow Rate (L/min) 3 Positive obese and unkempt General Appearance ED: unkempt and NAD Nutritional Appearance: obese HEENT Reports normocephalic atraumatic Eyes PERRL and EOMs intact bilaterally Neck full ROM Chest Wall inspection of chest normal Resp normal respiratory effort Cardio regular rate and regular rhythm Extremity Extremity Narrative: Patient has tenderness to palpation of the right hip, femur, knee, tibia, ankle, foot anywhere on the skin that is touched causes pain. Patient refuses to move her right leg. I do not see any bruising or swelling. There is no obvious deformities. She is neurovascularly intact. There is a dressing over the right tibia. Patient also has pain to the left patella and left tib-fib regions. No bruising, swelling, lacerations. Neuro oriented x3 and CN's II-XII intact bilaterally Psych Appearance: unkempt Mood & Affect: tearful MDM MDM MDM Narrative Medical decision making narrative: Patient presenting with a fall. She states she chronically has orthostatic hypotension and she has to change position carefully. She got up out of her wheelchair and states she got lightheaded. Nobody was able to catch her and she fell backwards onto her buttocks. She does not have any lower back pain or buttock pain. She complains of right knee pain and left knee pain. She says her legs were behind her. Her daughter states that it was her right leg that tucked behind her and she is not sure how she injured the left knee. Patient complains of pain from the right hip down to the left foot. Anywhere I touch is painful. Initially there is no signs of bruising or swelling. She does have a dressing in place and I will wait until she has x-rays and lab work before I addressed this. Differential includes dehydration, anemia, ACS, orthostatic hypotension, electrolyte maladies, anemia, laceration, lower extremity fracture. CBC was obtained to assess white blood cell count, hemoglobin, platelets. BMP to assess renal function, electrolytes, glucose. High-sensitivity troponin and EKG to assess for ischemia/dysrhythmia. Right hip, femur, ankle, foot are negative for acute findings on my interpretation. Radiology interprets this and agrees. Left knee knee x-ray interpreted by myself shows concern for a hairline fracture of the distal femoral shaft. Left tib-fib x-ray concerning for possible fracture of the tibia. The right knee and tib-fib show possible cortical proximal fibula. Patient does have tenderness on the medial joint line in the left knee. She is difficult to examine secondary to pain but I suspect she might of tore a ligament here. She does have an effusion on the right knee x-ray. Patient was medicated with fentanyl a couple times. When I took down the dressing she had a 20 cm laceration and a half wound shaving was flap down to the lateral aspect. Adipose tissue was exposed but there was no exposure of bone or tendon. Wound was anesthetized with 15 cc of lidocaine with epin ephrine. Appropriate anesthesia was achieved. Patient stated that she was initially allergic to lidocaine however I was able to review her previous surgery where she was given lidocaine intraoperatively and did not have allergic reaction. No reaction here today. Patient's leg was thoroughly cleaned with Shur-Clens. Prepped and draped in sterile fashion. Wound was irrigated with 1500 cc of sterile saline. 2 horizontal mattress sutures were used to approximate the flap. Patient required 18 simple interrupted sutures to approximate the wound margins. CBC shows white blood cell count 7.9, hemoglobin 9.3 going home, renal functions likely due to. Reaction present cell troponin 18. EKG interpreted by myself shows a sinus rhythm at 73 bpm without signs change or ectopy. Lab work is all baseline for end-stage renal disease on dialysis and she has chronic anemia. I will cover the patient with antibiotics because she is diabetic and it was a dirty wound off the side of her wheelchair. First dose was given in the ER. Discussed the x-ray images with Dr. Chen who recommended that the patient be placed in knee immobilizer on the left and she is to be nonweightbearing. He did not feel like she had a tibial fracture however on the left. The patient is amenable to following up with him. I counseled the patient and her daughter that I recommend that she go to detention since she is having trouble with her left leg and her right leg and is already unstable and it is virtually impossible for her to not bear weight on the left leg with her right leg injury. They states that they do have a wheelchair, electric wheelchair, walker at home. They stated to me that they refused to go back to the detention home or a intermediate because she just got out of 1 today. I expressed that I am concerned that she is going to fall but they are adamant. She does qualify for EMS transport which with her home. All questions were answered. Impression: 1. Fall 2. Right knee strain 3. 20 cm right leg laceration 4. Left distal femur fracture 5. Right cortical avulsion fracture of the fibula Lab Data Attestation: I reviewed the patient's lab results. Labs: Laboratory Results - last 24 hr 04/03/24 17:27 WBC 7.9 RBC 3.10 L Hgb 9.3 L Hct 29.7 L MCV 95.8 MCH 30.0 MCHC 31.3 L RDW Std Deviation 49.7 H RDW Coeff of Juan 15.3 H Plt Count 287 MPV 9.1 Immature Gran % (Auto) 0.500 Neut % (Auto) 69.1 Lymph % (Auto) 18.9 L Piute % (Auto) 6.9 Eos % (Auto) 3.5 Baso % (Auto) 1.1 H Absolute Neuts (auto) 5.5 Absolute Lymphs (auto) 1.50 Nucleated RBC % 0.3 Sodium 139 Potassium 4.1 Chloride 104 Carbon Dioxide 30.0 Anion Gap 5 BUN 11 Creatinine 3.22 H Estim Creat Clear Calc 27.71 Est GFR (MDRD) Af Amer 20 L Est GFR (MDRD) Non-Af 16 L BUN/Creatinine Ratio 3.4 L Glucose 125 H Calcium 8.8 Troponin I High Sens 18 Radiography Diagnostic Testing: Clinical Impression(s) from Imaging Studies Ankle X-Ray 04/03/24 16:45 IMPRESSION: Bimalleolar sprain. No acute fracture or dislocation Electronically Signed: Bertram Antonio MD at 17:39 EDT , Femur X-Ray 04/03/24 16:45 IMPRESSION: Normal x-ray examination of the femur. Electronically Signed: Bertram Antonio MD at 17:42 EDT , Foot X-Ray 04/03/24 16:45 IMPRESSION: No acute fracture or dislocation. Electronically Signed: Bertram Antonio MD at 17:41 EDT Reading Location ID and State: [address] [place] [address] Tel [phone], Service support , Knee X-Ray 04/03/24 16:45 IMPRESSION: Mild cortical avulsion of the fibular neck. Possible old stress fracture of the proximal tibia Electronically Signed: Bertram Antonio MD at 17:32 EDT Reading Location ID and State: [address] [place] [address] Tel [phone], Service support , Knee X-Ray 04/03/24 16:45 IMPRESSION: Suspicious for for hairline fracture of the distal femoral shaft. Clinical correlation recommended Mild deformity of the fibular neck likely chronic.. This may be further assessed with CAT scan if clinically indicated Electronically Signed: Bertram Antonio MD at 17:36 EDT Reading Location ID and State: [address] [place] [address] Tel [phone], Service support , Pelvis X-Ray 04/03/24 16:45 IMPRESSION: Normal pelvis and right hip. Cannot definitively exclude left femoral neck fracture. Additional views would be helpful for further evaluation if clinically warranted Electronically Signed: Bertram Antonio MD at 17:38 EDT Reading Location ID and State: [address] [place] [address] Tel [phone], Service support , Tibia/Fibula X-Ray 04/03/24 16:45 IMPRESSION: Cortical avulsion fracture of the neck of the proximal fibula Question old stress fracture of the proximal tibial shaft Electronically Signed: Bertram Antonio MD at 17:29 EDT Reading Location ID and State: [address] [place] [address] Tel [phone], Service support , Tibia/Fibula X-Ray 04/03/24 16:45 IMPRESSION: . Possible hairline fracture of the proximal tibial shaft. Clinical relation recommended Electronically Signed: Bertram Antonio MD at 17:26 EDT Reading Location ID and State: [address] [place] [address] Tel , Service support , Discharge Plan Triage Chief Complaint: Fall ED Provider: Michelet Garzon Dx/Rx/DC Orders Instructions: ED Knee Sprain, ED Laceration Extremity, ED Fall Prevention Prescriptions: New clindamycin HCl 150 mg capsule 450 mg PO TID 7 Days Qty: 63 0RF No Action aspirin 81 mg tablet,delayed release (DR/EC) 81 mg PO DAILY cetirizine 10 mg tablet 10 mg PO DAILY pantoprazole 40 mg tablet,delayed release (DR/EC) 40 mg PO DAILY bumetanide 1 mg tablet 1 mg PO BID tamsulosin 0.4 mg capsule 0.4 mg PO QHS promethazine 25 mg tablet 25 mg PO Q8H PRN (Reason: NAUSEA/VOMITING) atorvastatin 40 mg Tablet 40 mg PO QHS Qty: 30 1RF albuterol sulfate 2.5 mg /3 mL (0.083 %) Solution For Nebulization 2.5 mg INHALATION Q4H PRN (Reason: SOB) gabapentin 100 mg capsule 300 mg PO QHS Qty: 21 0RF hydrocodone-acetaminophen 7.5-325 mg tablet 1 tab PO Q6H PRN (Reason: pain) 3 Days Qty: 12 0RF dicyclomine 10 mg capsule 10 mg PO BID insulin aspart U-100 [Novolog FlexPen U-100 Insulin] 100 unit/mL (3 mL) insulin pen 6 unit subcut TID Rx Instructions: PT TAKES 6-10 UNITS THREE TIMES DAILY sucralfate 1 gram Tablet 1 g PO TID@0700,1100,1600 Qty: 90 0RF amlodipine 5 mg tablet 5 mg PO DAILY albuterol sulfate 90 mcg/actuation HFA aerosol inhaler 2 puff inhalation Q4H PRN (Reason: shortness of breath or wheezing) diclofenac sodium 1 % gel 1 ea topical 4X/DAY B complex-vitamin C-folic acid 0.8 mg tablet 1 tab PO DAILY prochlorperazine maleate 5 mg tablet 5 mg PO Q8H PRN (Reason: nausea and vomiting) sennosides [senna] 8.6 mg tablet 17.2 mg PO DAILY levothyroxine 25 mcg tablet 25 mcg PO DAILY losartan 100 mg tablet 100 mg PO DAILY lamotrigine 25 mg tablet 50 mg PO DAILY clopidogrel [Plavix] 75 mg tablet 75 mg PO DAILY Velphoro 500 mg tablet,chewable 500 mg PO TIDCM meclizine 25 mg Tablet 25 mg PO TID PRN PRN (Reason: Dizziness) 3 Days Qty: 10 0RF fluconazole 150 mg tablet 150 mg PO PRN PRN (Reason: yeast infection) 1 Days Qty: 1 0RF (DME) FreeStyle Gissell 2 Sensor Kit See Rx Instructions .Route Qty: 6 1RF Rx Instructions: 1 sensor q 14 days insulin detemir U-100 100 unit/mL (3 mL) insulin pen 26 unit subcut QHS Qty: 30 0RF (DME) pen needle, diabetic [BD Ultra-Fine Laura Pen Needle] 32 gauge x 5/32 needle See Rx Instructions .ROUTE .MEDSUPPLY Qty: 400 3RF Rx Instructions: 4 times daily Primary Care Provider: Sarah Peters Referrals: Sarah Peters DO [Primary Care Provider] - Fabiano Chen DO [Med Staff - Active Staff] - 3-5 Days Print Language: Czech Disposition Disposition: Home, Self Care
--- NOTE | 2024-04-03 16:45 | RAD_ITS ---
STUDY: X-RAY - RIGHT ANKLE REASON FOR EXAM: Female, 49 years old. pain TECHNIQUE: 3 view(s) of the ankle. COMPARISON: None. FINDINGS: Normal visualized distal tibia and fibula. Normal medial and lateral malleoli. Normal tibiotalar articulation and ankle mortise. Normal visualized talus. Small plantar calcaneal spur is noted. The visualized subtalar, talonavicular, calcaneocuboid and tarsal articulations are normal. Diffuse bimalleolar soft tissue swelling.. RAD/Ankle min 3 Views IMPRESSION: Bimalleolar sprain. No acute fracture or dislocation Electronically Signed: Bertram Antonio MD at 17:39 EDT ,
--- NOTE | 2024-04-03 16:45 | RAD_ITS ---
STUDY: X-RAY - RIGHT KNEE REASON FOR EXAM: Female, 49 years old. pain TECHNIQUE: 2 view(s) of the knee. COMPARISON: None. FINDINGS: Normal visualized distal femur. Possible stress fracture proximal tibial shaft and cortical avulsion fracture of the fibular neck.. Normal proximal tibiofibular articulation. Normal medial femorotibial compartment. Normal lateral femorotibial compartment. Normal patellofemoral articulation. The soft tissue structures are unremarkable. RAD/Knee 1 or 2 Views IMPRESSION: Mild cortical avulsion of the fibular neck. Possible old stress fracture of the proximal tibia Electronically Signed: Bertram Antonio MD at 17:32 EDT ,
--- NOTE | 2024-04-03 16:45 | RAD_ITS ---
STUDY: X-RAY - RIGHT FEMUR REASON FOR STUDY: Female, 49 years old. pain TECHNIQUE: 4 view(s) of the femur. COMPARISON: None. FINDINGS: Normal visualized femur. Normal visualized soft tissue structure. RAD/Femur Min 2 Views IMPRESSION: Normal x-ray examination of the femur. Electronically Signed: Bertram Antnoio MD at 17:42 EDT ,
--- NOTE | 2024-04-03 16:45 | RAD_ITS ---
STUDY: X-RAY - RIGHT FOOT CLINICAL: Female, 49 years old. pain TECHNIQUE: 3 view(s) of the foot. COMPARISON: None. FINDINGS: Normal talus,, and tarsal bones. Small plantar calcaneal spur Normal visualized subtalar, talonavicular, calcaneocuboid, tarsal and tarsometatarsal articulations. Normal metatarsi. Normal metatarsophalangeal joint of the great toe. Normal tibial and fibular sesamoid bones. Normal interphalangeal joint of the great toe. Normal phalanges of the great toe. Normal second through fifth metatarsophalangeal joints. Normal interphalangeal joints and phalanges of the lesser toes. Diffuse soft tissue swelling the dorsal surface of the mid to distal foot. RAD/Foot min 3 Views IMPRESSION: No acute fracture or dislocation. Electronically Signed: Bertram Antonio MD at 17:41 EDT ,
--- NOTE | 2024-04-03 16:45 | RAD_ITS ---
STUDY: X-RAY - LEFT TIBIA AND FIBULA REASON FOR EXAM: Female, 49 years old. pain TECHNIQUE: AP and lateral view(s) of the tibia and fibula were obtained. COMPARISON: None. FINDINGS: There are 2 threaded screws traversing the proximal shaft of the tibia.. Normal visualized fibula. There is no definitive evidence for acute fracture however there is radiolucency within the proximal tibial shaft possibly representing hairline fracture. Clinical correlation is recommended The soft tissue structures are unremarkable. RAD/Tibia & Fibula 2 Views IMPRESSION: . Possible hairline fracture of the proximal tibial shaft. Clinical relation recommended Electronically Signed: Bertram Antonio MD at 17:26 EDT ,
--- NOTE | 2024-04-03 16:45 | RAD_ITS ---
STUDY: X-RAY - PELVIS REASON FOR EXAM: Female, 49 years old. pain TECHNIQUE: One view of the pelvis was obtained. COMPARISON: None. FINDINGS: There is a non-specific bowel gas pattern. Normal visualized soft tissue structures. Normal bilateral iliac wings, sacroiliac joints and visualized sacrum. Normal visualized bilateral superior and inferior pubic rami. Normal pubic symphysis. Normal ischial tuberosities. Normal visualized right femoral head. Normal right acetabulum. Normal right hip joint. Foreshortened appearance to the lateral femoral neck without well-defined fracture line possibly artifactual due to rotation.. If strong clinical suspicion for left hip fracture additional images recommended Normal left acetabulum. Normal left hip joint. RAD/Pelvis 1 or 2 Views IMPRESSION: Normal pelvis and right hip. Cannot definitively exclude left femoral neck fracture. Additional views would be helpful for further evaluation if clinically warranted Electronically Signed: Bertram Antonio MD at 17:38 EDT ,
--- NOTE | 2024-04-03 16:45 | RAD_ITS ---
STUDY: X-RAY - RIGHT TIBIA AND FIBULA REASON FOR EXAM: Female, 49 years old. pain TECHNIQUE: AP and lateral view(s) of the tibia and fibula were obtained. COMPARISON: None. FINDINGS: There is a transverse linear zone of increased bony sclerosis of the proximal tibial shaft of indeterminate etiology possibly representing old stress fracture. There is also cortical irregularity of the fibular neck which has the appearance of cortical avulsion fracture. The soft tissue structures are unremarkable. RAD/Tibia & Fibula 2 Views IMPRESSION: Cortical avulsion fracture of the neck of the proximal fibula Question old stress fracture of the proximal tibial shaft Electronically Signed: Bertram Antonio MD at 17:29 EDT ,
--- NOTE | 2024-04-03 16:45 | RAD_ITS ---
STUDY: X-RAY - LEFT KNEE REASON FOR EXAM: Female, 49 years old. left TECHNIQUE: AP and lateral view(s) of the knee. COMPARISON: None. FINDINGS: Linear radiolucency of the distal femur only seen on AP view suspicious for hairline fracture.. Postsurgical changes of the proximal tibia.. Mild deformity of the fibular neck possibly chronic. Normal proximal tibiofibular articulation. Normal medial femorotibial compartment. Normal lateral femorotibial compartment. Normal patellofemoral articulation. The soft tissue structures are unremarkable. RAD/Knee 1 or 2 Views IMPRESSION: Suspicious for for hairline fracture of the distal femoral shaft. Clinical correlation recommended Mild deformity of the fibular neck likely chronic.. This may be further assessed with CAT scan if clinically indicated Electronically Signed: Bertram Antonio MD at 17:36 EDT ,
[2024-04-03 17:26] VITALS: BP 131/82; PULSE 75; RESP 12; TEMP 36.6; O2SAT 100
[2024-04-03 17:40] LABS: Absolute Neutrophil Count 5.5 X10^3/uL (2.0-7.7); Basophil# 0.09 X10^3/uL; Basophil% 1.1 % (0-1); Eosinophil# 0.28 X10^3/uL; Eosinophils% 3.5 % (0-5); Hematocrit 29.7 % (37-47); Hemoglobin 9.3 g/dL (12.0-15.0); Lymphocyte % 18.9 % (19-41); Mean Corp Hgb Conc 31.3 g/dL (32-36); Mean Corpuscular Volume 95.8 fL (81-99); Mean Platelet Vol. 9.1 fl (6.2-12.0); Monocyte# 0.55 X10^3/uL; Monocyte% 6.9 % (0-10); NRBC Flagged by Analyzer 0.3 % (0-5); Neutrophil # 5.48 X10^3/uL (2.7-7.7); Neutrophil % 69.1 % (47-70); Platelet Count 287 K/mm3 (150-450); RBC Distribution Width CV 15.3 % (11.6-14.6); RBC Distribution Width SD 49.7 fl (35.1-43.9); White Blood Count 7.9 K/mm3 (4.4-11.0)
[2024-04-03 17:58] LABS: Anion Gap 5 (5-15); BUN 11 mg/dL (7-18); BUN/Creat Ratio 3.4 RATIO (10-20); Calcium,Total 8.8 mg/dL (8.5-10.1); Chloride 104 mmol/L (98-107); Creatinine, Serum 3.22 mg/dL (0.55-1.02); EST Glomerular Filtration Rate 16 mL/min (>60); Est Glom Filt Rate - Afr Amer 20 mL/min (>60); Estimated Creatinine Clearance 27.71 ml/min; Glucose 125 mg/dL (74-106); Potassium 4.1 mmol/L (3.5-5.1); Sodium Level 139 mmol/L (136-145); Troponin-I HS 18 pg/mL (3.0-54.0)
[2024-04-03] MEDS: Lidocaine 1% /Epi 1:100 (20ml) 20 ML Vial 30 ML INFILT (18:50)
[2024-04-03 19:09] VITALS: BP 125/66; PULSE 78; RESP 19; TEMP 36.4; O2SAT 98
[2024-04-03] MEDS: fentaNYL 100 MCG/2 ML Ampul 50 MCG IV (19:30)
[2024-04-03] MEDS: Clindamycin HCl 150 MG Capsule 450 MG PO (21:21)
[2024-04-03 21:53] VITALS: BP 120/53; PULSE 70; RESP 18; O2SAT 97
[2024-04-03 21:54] VITALS: BP 120/53; PULSE 72; RESP 18; TEMP 36.3; O2SAT 98
== END 2024-04-03 23:15 | disposition home or self-care (01) ==
PROVIDERS: Emergency Provider Student in an Organized Health Care Education/Training Program; PCP Family Medicine; Visit Provider Student in an Organized Health Care Education/Training Program
DX: S72.402A Unspecified fracture of lower end of left femur, initial encounter for closed fracture (principal); I13.2 Hypertensive heart and chronic kidney disease with heart failure and with stage 5 chronic kidney disease, or end stage renal disease; N18.6 End stage renal disease; I50.9 Heart failure, unspecified; E11.22 Type 2 diabetes mellitus with diabetic chronic kidney disease; E11.43 Type 2 diabetes mellitus with diabetic autonomic (poly)neuropathy; Z79.4 Long term (current) use of insulin; D63.1 Anemia in chronic kidney disease; Z99.2 Dependence on renal dialysis; E78.00 Pure hypercholesterolemia, unspecified; W01.0XXA Fall on same level from slipping, tripping and stumbling without subsequent striking against object, initial encounter; S83.91XA Sprain of unspecified site of right knee, initial encounter; S81.811A Laceration without foreign body, right lower leg, initial encounter; M25.461 Effusion, right knee; Z87.891 Personal history of nicotine dependence; Z86.73 Personal history of transient ischemic attack (TIA), and cerebral infarction without residual deficits; K31.84 Gastroparesis; Z86.718 Personal history of other venous thrombosis and embolism
CPT/HCPCS: 12005; 72170; 73552; 73560; 73590; 73610; 73630; 80048; 84484; 85025; 93005; 99285; A4216

== ENCOUNTER 2024-08-03 10:06 | Day surgery (SDC) | payer MEDICARE, MEDICAID, SELFPAY ==
[2024-08-02 08:53] VITALS: BMI 47.2
--- NOTE | 2024-08-03 11:44 | PCM.HP.STD ---
HPI - General HPI Narrative XOCHITL CHERRY, is a 49 F who presents with prolonged bleeding from her left arm fistula. No arm edema. [facility] Medical History Diabetes Gastroparesis Dialysis patient Kidney disease Pancreatitis Congestive heart failure (CHF) DVT (deep venous thrombosis) TIA (transient ischemic attack) End-stage renal disease (ESRD) Fibromyalgia, primary LUE weakness Hypertensive urgency Transitioned from acute care to home health care Left hand pain Loss of hearing Bruising Arthritis Easy bruising Injury of head and neck Syncope Difficulty swallowing Shortness of breath on exertion History of stress test History of echocardiogram Stroke (~2021) Hypertension Disc disorder ESRD needing dialysis Walker as ambulation aid Vision impairment Wears glasses Seasonal allergies History of Clostridium difficile infection Depression Anxiety Thyroid disease Insulin dependent diabetes mellitus Uses wheelchair Chronic kidney disease Low iron High cholesterol Migraine headache Blackout Dietary restriction History of ulceration Fleming esophagus Gastric reflux Asthma On home oxygen therapy Former smoker History of edema Hypertension History of CHF (congestive heart failure) delivery delivered Left foot amputee (~2019) FH: cholecystectomy Home Medications ?Medication ?Instructions ?Recorded ?Last Taken ?Type aspirin 81 mg tablet,delayed 81 mg PO DAILY HEART HEALTH 06/23/22 09/05/23 History release bumetanide 1 mg tablet 1 mg PO BID FLUID 06/23/22 09/05/23 History cetirizine 10 mg tablet 10 mg PO DAILY ALLERGIES 06/23/22 09/05/23 History pantoprazole 40 mg tablet,delayed 40 mg PO DAILY ACID REFLUX 06/23/22 09/05/23 History release tamsulosin 0.4 mg capsule 0.4 mg PO QHS BLADDER 06/23/22 09/05/23 History promethazine 25 mg tablet 25 mg PO Q8H PRN NAUSEA/VOMITING 09/01/22 Unknown History atorvastatin 40 mg tablet 40 mg PO QHS cholesterol #30 tabs 09/04/22 09/05/23 Rx albuterol sulfate 2.5 mg/3 mL 2.5 mg inhalation Q4H PRN SOB 01/07/23 01/19/23 History (0.083 %) solution for nebulization gabapentin 100 mg capsule 300 mg (3 x 100 mg) PO QHS NERVE 01/22/23 09/05/23 Rx PAIN #21 caps flash glucose sensor (FreeStyle #6 ea 03/16/23 Unknown Rx Gissell 2 Sensor kit) hydrocodone 7.5 mg-acetaminophen 1 tab PO Q6H PRN pain 3 days #12 04/06/23 09/05/23 Rx 325 mg tablet tabs insulin detemir U-100 100 unit/mL 26 unit (0.26 mL) subcut QHS 08/04/23 09/03/23 Rx (3 mL) subcutaneous pen DIABETES #30 mL pen needle, diabetic 32 gauge x #400 ea 08/04/23 Unknown Rx (BD Ultra-Fine Laura Pen Needle) dicyclomine 10 mg capsule 10 mg PO BID stomach 08/13/23 Unknown History insulin aspart U-100 100 unit/mL 6 unit subcut TID DIABETES 08/13/23 09/05/23 History (3 mL) subcutaneous pen (Novolog FlexPen U-100 Insulin aspart) sucralfate 1 gram tablet 1 g PO TID@0700,1100,1600 ulcers 08/14/23 09/05/23 Rx #90 tabs albuterol sulfate 90 mcg/actuation 2 puff inhalation Q4H PRN 02/07/24 Unknown History aerosol inhaler shortness of breath or wheezing amlodipine 5 mg tablet 5 mg PO DAILY 02/07/24 Unknown History clopidogrel 75 mg tablet (Plavix) 75 mg PO DAILY 02/07/24 Unknown History diclofenac sodium 1 % topical gel 1 ea topical 4X/DAY 02/07/24 Unknown History lamotrigine 25 mg tablet 50 mg PO DAILY 02/07/24 Unknown History levothyroxine 25 mcg tablet 25 mcg PO DAILY 02/07/24 Unknown History losartan 100 mg tablet 100 mg PO DAILY 02/07/24 Unknown History prochlorperazine maleate 5 mg 5 mg PO Q8H PRN nausea and vomiting 02/07/24 Unknown History tablet sennosides 8.6 mg tablet (senna) 17.2 mg PO DAILY 02/07/24 Unknown History vitamin B complex-vitamin C-folic 1 tab PO DAILY 02/07/24 Unknown History acid 0.8 mg tablet sucroferric oxyhydroxide 500 mg 500 mg PO TIDCM end stage renal 02/08/24 Unknown History chewable tablet (Velphoro) disease fluconazole 150 mg tablet 150 mg PO PRN PRN yeast infection 02/11/24 Unknown Rx 1 day #1 TAB meclizine 25 mg tablet 25 mg PO TID PRN PRN Dizziness 3 02/11/24 Unknown Rx days #10 tabs clindamycin HCl 150 mg capsule 450 mg (3 x 150 mg) PO TID 7 days 04/03/24 Unknown Rx #63 caps Allergy/AdvReac Type Severity Reaction Status Date / Time lidocaine Allergy Severe Rash Verified 04/03/24 15:55 bacitracin Allergy Intermediate blisters Verified 04/03/24 15:55 hydrogen peroxide Allergy Intermediate blisters Verified 04/03/24 15:55 isopropyl alcohol Allergy Intermediate blisters Verified 04/03/24 15:55 Sulfa (Sulfonamide Allergy Intermediate Rash Verified 04/03/24 15:55 Antibiotics) Bleach (Sodium Hypochlorite) Allergy Hives Verified 04/03/24 15:55 insulin lispro (From Humalog Allergy HIVES, Verified 04/03/24 15:55 U-100 Insulin) REDNESS Latex, Natural Rubber Allergy Rash Verified 04/03/24 15:55 ondansetron (From Zofran) AdvReac Severe Constipatio Verified 04/03/24 15:55 n dicyclomine AdvReac Mild Vomiting Verified 04/03/24 15:55 metformin AdvReac Vomiting Verified 04/03/24 15:55 neomycin (From Neosporin AdvReac HIVES, Verified 04/03/24 15:55 ([id number])) REDNESS polymyxin B (From Neosporin AdvReac HIVES, Verified 04/03/24 15:55 ([id number])) REDNESS Family History Other Arthritis Asthma CVA (cerebral vascular accident) Diabetes Heart disease High cholesterol Hypertension Kidney disease Osteoporosis Seizures Surgical History History of infusaport central venous catheter removal History of bladder surgery History of arteriovenostomy for renal dialysis History of thoracentesis History of History of cholecystectomy History of liver biopsy History of lumpectomy of right breast History of shoulder surgery History of foot surgery Hx of tonsillectomy H/O right knee surgery H/O left knee surgery Social History household members: family housing: house Smoking Status: Former smoker alcohol intake: never ROS Constitutional Constitutional: Denies chills, fever(s), frequent falls, lethargy or weakness Eyes Eyes: Denies blind spots, change in vision or loss of vision ENT HEENT: Denies bleeding gums, hoarseness or sore throat Cardiovascular Cardiovascular: Denies abdominal pain, bluish discoloration of hand/feet, chest pain with activity, claudication, cold extremities, cyanosis, dyspnea on exertion, erythema on extremities, irregular heart rhythm, leg edema, leg ulcers, numbness in extremities or weakness in extremities Respiratory/Chest Respiratory/Chest: Denies cough, excessive phlegm production, shortness of breath at rest, shortness of breath with exertion or wheezing Gastrointestinal Gastrointestinal: Denies anorexia, change in stool character, constipation, diarrhea, melena or rectal bleeding Genitourinary Genitourinary: Denies dysuria or hematuria Musculoskeletal Musculoskeletal: Denies abnormal gait Integumentary Integumentary: Reports other Details: ; Denies erythema, non-healing lesions or wounds Neurologic Neurologic: Denies abnormal speech, focal weakness, headache(s), loss of vision, numbness, paresthesias or sensory deficit Hematologic/Lymphatic Hematologic/Lymphatic: Denies easy bleeding, easy bruising or lymphadenopathy Vital Signs Vital Signs Vital Signs: Weight Weight: 302 lb Body Mass Index (BMI) 47.2 Physical Exam Const alert, oriented x3, no apparent distress and healthy appearing General Appearance: cooperative; Negative for combative or lethargic Orientation / Consciousness: awake Exam Limitations: no limitations HEENT Head and Scalp: normocephalic and atraumatic Eyes EOMs intact bilaterally General Eye: normal appearance of both eyes Neck full ROM, no lymphadenopathy, thyroid normal and No no carotid bruits General: trachea midline; Negative for lymphadenopathy or tenderness Thyroid: thyroid normal Lymph Lymphatic: Negative for no lymphadenopathy noted Resp normal respiratory effort, no use of accessory muscles and clear to auscultation bilaterally Effort and Inspection: Negative for labored, stridor or audible wheezes Cardio regular rate and regular rhythm Back/Spine Cervical Spine: cervical ROM normal Extremity full ROM, normal capillary refill and no clubbing, cyanosis or edema Skin no rashes or lesions noted and no wounds Neuro oriented x3, CN's II-XII intact bilaterally, no focal motor deficits and no sensory deficits noted Psych thought process normal, cooperative, affect normal, speech normal and activity/motor behavior normal Assessment & Plan Assessment/Plan (1) Dialysis AV fistula malfunction: QUALIFIERS: Encounter type: subsequent encounter Qualified Code(s): T82.590D - Other mechanical complication of surgically created arteriovenous fistula, subsequent encounter PLAN: -fistulagram
--- NOTE | 2024-08-03 16:02 | OP.PCM_ITS ---
Operative Report (Standard) Operative Information Surgery/Procedure Performed: Fistulogram Intravascular ultrasound evaluation of the inferior vena cava, superior vena cava, left innominate vein, left axillary subclavian vein, left cephalic vein and fistula Angioplasty with drug-coated balloon of the left axillary vein Surgeon: Gregory Cooper Date of Procedure: 08/03/24 Procedure Start Time: 12:30 Procedure Stop Time: 13:30 Pre-Operative Diagnosis: Fistula malfunction Post-Operative Diagnosis: Same, recurrent central venous stenosis Select all DRAINS/GRAFTS/IMPLANTS that apply: None Type of Anesthesia: Local and Sedation,Conscious Estimated Blood Loss: 5 Specimen collected: No Description of surgery: HPI: Patient is a 49-year-old female with end-stage renal disease with prior left upper arm cephalic vein fistula. She previously had undergone fistulogram for extensive left left upper extremity edema and prolonged bleeding. 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 She is undergone stent placement which resolved her symptoms and she recently has developed recurrent prolonged bleeding. She presents now for fistulogram with possible intervention. Description of procedure: Upon obtaining form consent and verification correct patient procedure site patient was taken to the [facility] where she was positioned prepped and draped in usual sterile fashion. Timeouts performed conscious sedation administered Versed and fentanyl. Skin overlying the fistula was anesthetized and the vessel accessed under ultrasound guidance with a micropuncture needle and wire. This was then exchanged for 6 [place] fistula sheath through which hand-injection subtraction fistulogram and central venogram was performed. This revealed patent large caliber fistula with no significant collaterals in the proximal arm or visualized stenosis. Proximal to the previously placed stent there was a large collateral that emptied into the in nominate vein more medially with what appeared to be stenosis at the leading edge of the stent adjacent to the costoclavicular angle. So this was the most likely culprit so a glide advantage wire was advanced and the short 6 [place] sheath exchanged for an 8 [place] sheath. Using a glide advantage wire and KMP catheter we are able to successfully navigate into the stent traversing while remaining within the lumen of the stent and ultimately advancing into the superior vena cava and the inferior vena cava. The catheter was withdrawn and the patient was heparinized and allowed to circulate for 3 minutes. Intravascular ultrasound probe then advanced over the wire and recorded pullback performed of the IVC, SVC, left innominate vein, left axillary subclavian vein, cephalic vein and fistula. This revealed greater than 60% stenosis at the leading edge of the stent and otherwise no significant stenosis of the fistula circuit. A 12 mm conquest balloon was then advanced centered at the lesion and inflated to nominal for 2 minutes then deflated and withdrawn. Repeat angiography revealed no extravasation of dissection and continued flow via the collateral. A 12 mm lutonics drug-coated angioplasty was then advanced in position and inflated to nominal for 2 minutes and deflated withdrawn. The lesion was then postdilated with a 14 mm conquest balloon inflated to nominal for 2 minutes then deflated withdrawn. Completion angiography revealed no significant residual stenosis and no extravasation or dissection. There was now minimal contrast transit via the collateral vein. It was felt that given the adjacent vessel caliber that no larger balloon angioplasty would be tolerated by the reference vessels. Wire and balloon were then withdrawn and the fistula compressed during which hand-injection of contrast into the sheath was performed along reflux into the arterial system with no significant stenosis identified. See no further lesions require intervention a nylon suture was placed at the access site and the sheath withdrawn followed by 2 minutes of manual pressure. The patient was taken the recovery room with plan discharged home. Surgical Findings: 60% stenosis of the subclavian vein at the leading edge of the prior stent, resolved after intervention. 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
== END 2024-08-03 14:20 | disposition home or self-care (01) ==
PROVIDERS: PCP Family Medicine; Referring Provider Surgery Trauma Surgery; Visit Provider Surgery Trauma Surgery
DX: T82.858A Stenosis of other vascular prosthetic devices, implants and grafts, initial encounter (principal); I13.2 Hypertensive heart and chronic kidney disease with heart failure and with stage 5 chronic kidney disease, or end stage renal disease; N18.6 End stage renal disease; Z89.432 Acquired absence of left foot; I50.9 Heart failure, unspecified; E11.43 Type 2 diabetes mellitus with diabetic autonomic (poly)neuropathy; E11.22 Type 2 diabetes mellitus with diabetic chronic kidney disease; Z79.4 Long term (current) use of insulin; T82.838A Hemorrhage due to vascular prosthetic devices, implants and grafts, initial encounter; Y82.8 Other medical devices associated with adverse incidents; K31.84 Gastroparesis; K21.9 Gastro-esophageal reflux disease without esophagitis; F41.9 Anxiety disorder, unspecified; F32.A Depression, unspecified; E07.9 Disorder of thyroid, unspecified; E78.00 Pure hypercholesterolemia, unspecified; M79.7 Fibromyalgia; J45.909 Unspecified asthma, uncomplicated; Z99.2 Dependence on renal dialysis; Z88.2 Allergy status to sulfonamides; Z88.1 Allergy status to other antibiotic agents; Z87.2 Personal history of diseases of the skin and subcutaneous tissue; Z79.82 Long term (current) use of aspirin; Z79.02 Long term (current) use of antithrombotics/antiplatelets; Z87.19 Personal history of other diseases of the digestive system; Z90.49 Acquired absence of other specified parts of digestive tract; Z86.19 Personal history of other infectious and parasitic diseases; Z86.73 Personal history of transient ischemic attack (TIA), and cerebral infarction without residual deficits; Z86.718 Personal history of other venous thrombosis and embolism; Z87.891 Personal history of nicotine dependence; Z79.899 Other long term (current) drug therapy
CPT/HCPCS: 36901; 36907; 37252; 37253; 76937; 99152; 99153; C1753; C1769; C2623; J7040; Q9967; C1725; C1894